=== PATIENT | male | born 1945 | race Caucasian/White ===

== ENCOUNTER 2017-06-12 09:39 | Inpatient (IN) | payer MEDICARE, OTHER ==
[2017-06-12] VITALS (39 sets, daily range): BP systolic 75–140; BP diastolic 38–98; PULSE 89–165; RESP 18–43; TEMP 98.5; Ht 180.3 cm; Wt 77.0 kg
[~2017-06-12] VITALS: Ht 180.3 cm; Wt 77.0 kg
[~2017-06-12 09:39] MED LIST: ETOMIDATE 20 MG INJ ONE; PROPOFOL 200 MG INJ ONE; SUCCINYLCHOLINE CHLORIDE 100 MG/5 ML SYG IV ONE
[2017-06-12] MEDS ORDERED: SODIUM CHLORIDE 0.9% 1L BAG IV* STA (09:48)
[2017-06-12] MEDS ORDERED: LEVOFLOXACIN 750MG/D5W (PMX) 150 ML IVPB STA (09:48)
[2017-06-12] MEDS ORDERED: VANCOMYCIN 1 GM (PMX) 250 ML IVPB STA (09:48)
[2017-06-12] MEDS ORDERED: PROPOFOL 100 ML IV STA (09:50)
[2017-06-12] MEDS ORDERED: SUCCINYLCHOLINE CHLORIDE 100 MG/5 ML SYG IV STA (09:50)
[2017-06-12] MEDS ORDERED: ETOMIDATE 20 MG INJ IV STA (09:50)
[2017-06-12 10:12] LABS: ABNORMAL IP MESSAGE 1; BASOPHILS % 0.2 % (0.0-2.0); HEMOGLOBIN 8.6 g/dl (14.0-18.0); LYMPHOCYTES # 0.9 10^3/ul (0.8-2.9); LYMPHOCYTES % 5.3 % (15.0-51.0); MEAN CORPUSCULAR HEMOGLOBIN 30.7 pg (29.0-33.0); MEAN CORPUSCULAR HGB CONC 31.9 g/dl (32.0-37.0); MEAN CORPUSCULAR VOLUME 96.4 fl (82.0-101.0); MEAN PLATELET VOLUME 12.5 fl (7.4-10.4); MONOCYTE # 2.1 10^3/ul (0.3-0.9); MONOCYTES % 11.7 % (0.0-11.0); NEUTROPHIL # 14.6 10^3/ul (1.6-7.5); NEUTROPHILS % 82.5 % (39.0-77.0); PLATELET COUNT 352 10^3/UL (140-415); POSITIVE DIFF @See below; RED CELL DISTRIBUTION WIDTH 17.8 % (11.5-14.5); WHITE BLOOD COUNT 17.7 10^3/ul (4.8-10.8)
--- NOTE | 2017-06-12 10:15 | ERA ---
ER Documentation Chief Complaint Date/Time DATE: 06/12/17 TIME: 10:02 Chief Complaint BIB RA FOR EVAL OF SOB. HPI This is a 72-year-old male presents to the emergency department from his retirement facility at [facility] by EMS after he developed a sudden onset of severe difficulty in breathing just prior to arrival. EMS indicated they had received a call from the nursing care facility that 5 minutes prior to their arrival the patient had a coughing episode with no choking or gagging and became severely hypoxic with difficulty in breathing. The patient has a known history of dementia and therefore is unable to provide any history. The patient also has a known history of COPD and septal pathway hypertension and atrial fibrillation on digoxin. The patient had presented with a history and physical from [facility] that was in February 2017 where the patient had been admitted for atrial fibrillation dementia with psychosis due to his rapidly progressing Alzheimer's disease. He has had a history of aspiration pneumonia in the past and his past surgical history includes a left inguinal hernia repair several years prior to arrival. The patient is not currently on any antibiotics and when he arrived into the emergency department the patient was warm to the touch and febrile at [facility]. ROS All systems reviewed and are negative except as per history of present illness. Medications Home Meds Reported Medications Saccharomyces Boulardii* (Florastor*) 250 Mg Cap, 250 MG PO BID, CAP 06/12/17 Tamsulosin Hcl* (Flomax*) 0.4 Mg Cap.er.24h, 0.8 MG PO HS, CAP 06/12/17 Finasteride* (Finasteride*) 5 Mg Tablet, 5 MG PO DAILY, TAB 06/12/17 Docusate Sodium* (Docusate Sodium*) 100 Mg Capsule, 100 MG PO BID, #60 CAP 06/12/17 Cranberry (Cranberry) 400 Mg Capsule, 400 MG PO DAILY, CAP 06/12/17 Atorvastatin Calcium* (Atorvastatin Calcium*) 20 Mg Tablet, 20 MG PO QHS, #30 TAB 06/12/17 Metoprolol Tartrate* (Lopressor*) 50 Mg Tab, 50 MG PO BID, #60 TAB 06/12/17 Digoxin* (Lanoxin*) 0.125 Mg Tablet, 0.125 MG PO DAILY, TAB 06/12/17 Divalproex Sodium* (Divalproex Sodium*) 500 Mg Tablet.dr, 500 MG PO DAILY, #120 TAB 06/12/17 Ascorbic Acid* (Vitamin C*) 500 Mg Capsule.sa, 500 MG PO DAILY, CAP 06/12/17 Risperidone* (Risperidone*) 1 Mg Tablet, 1 MG PO QHS, TAB 06/12/17 Multivitamins* (Theragran*) 1 Tab Tab, 1 TAB PO DAILY, TAB 06/12/17 Gabapentin* (Gabapentin*) 300 Mg Capsule, 300 MG PO TID, #90 CAP 06/12/17 Fluticasone Propionate* (Fluticasone Propionate* Nasal) 50 Mcg/[place] - 16 Gm [place].susp, 1 SPRAY NASAL DAILY, #1 BOTTLE TO EACH NOSTRIL 06/12/17 Acetaminophen* (Tylenol*) 325 Mg Tablet, 650 MG PO Q4H Y for MILD PAIN LEVEL 1-3 , TAB 06/12/17 Magnesium Hydroxide* (Milk Of Magnesia*) 400 Mg/5 Ml Oral.susp, 30 ML PO QHS Y for CONSTIPATION, ML 06/12/17 Ipratropium-Albuterol (Ipratropium-Albuterol) 0.5-3 Mg/3 Ml Ampul.neb, 3 ML INHALATION Q2H Y for CONSTIPATION, #30 VIAL 06/12/17 Ferrous Sulfate* (Ferrous Sulfate*) 325 Mg Tabec, 325 MG PO DAILY, TAB 06/12/17 Ergocalciferol (Vitamin D2) (VITAMIN D2) 2,000 Unit Tablet, 2000 UNIT PO WEEKLY , TAB 06/12/17 Discontinued Reported Medications Apixaban* (Eliquis*) 5 Mg Tablet, 5 MG PO BID, TAB 06/12/17 Allergies Allergies: Coded Allergies: Penicillins (Verified Allergy, Unknown, 06/12/17) neomycin (Verified Allergy, Unknown, 06/12/17) Physical Exam Vitals Vital Signs Date Time Temp Pulse Resp B/P Pulse Ox O2 Delivery O2 Flow Rate FiO2 06/12/17 11:06 109 18 103/45 100 Mechanical Ventilator 06/12/17 10:47 122 18 122/55 100 Mechanical Ventilator 06/12/17 09:50 33 100 06/12/17 09:45 Simple Mask 8.0 06/12/17 09:42 102.2 128 26 93/76 96 Physical Exam Constitutional:Well-developed. Cachectic and in severe respiratory distress. HEENT:Normocephalic. Atraumatic.Pupils were equal round reactive to light. Very dry mucous membranes.No tonsillar exudates. Poor oral dentition with missing teeth. Neck: No nuchal rigidity. No lymphadenopathy. No posterior cervical spine tenderness or step-offs. Respiratory: Decreased breath sounds heard bilaterally. Using accessory muscles of respiration. Tachypneic. Cardiovascular: Tachycardic with irregularly irregular rhythm.No murmurs. No rubs were appreciated.S1, S2 normal. Distal pulses are palpable 2+ bilaterally. GI: Abdomen was soft. Nontender. Non Distended. No pulsatile abdominal masses or bruits. No rebound. No guarding. Bowel sounds were present and normal. Muscle skeletal: Crease muscle tone of the bilateral lower extremities. Skin: Diaphoretic. No petechia, no purpura. No lesions on the palms or the soles of the feet. No maculopapular rash. NEURO: Aphasic, not following verbal command. Gait not able to be observed due to patient's severe respiratory distress. Facial droop. Patient was moving the upper and lower extremities as he would withdraw to pain but again did not follow verbal command Result Diagram: 06/12/17 0948 06/12/17 0935 Results 24 hrs Laboratory Tests Test 06/12/17 09:35 06/12/17 09:48 Prothrombin Time 16.0Sec Prothrombin Time Ratio 1.3 INR International Normalized Ratio 1.27 Activated Partial Thromboplast Time 34.4Sec Sodium Level 142mmol/L Potassium Level 4.6mmol/L Chloride Level 111mmol/L Carbon Dioxide Level 22mmol/L Anion Gap 14 Blood Urea Nitrogen 53mg/dl Creatinine 2.35mg/dl Glucose Level 140mg/dl Lactic Acid Level 2.5mmol/L Calcium Level 8.9mg/dl Total Bilirubin 0.8mg/dl Direct Bilirubin 0.00mg/dl Indirect Bilirubin 0.8mg/dl Aspartate Amino Transf (AST/SGOT) 18IU/L Alanine Aminotransferase (ALT/SGPT) 16IU/L Alkaline Phosphatase 66IU/L Troponin I 0.026ng/ml B-Type Natriuretic Peptide 3240PG/ML Total Protein 6.9g/dl Albumin 3.4g/dl Globulin 3.50g/dl Albumin/Globulin Ratio 0.97 Amylase Level 54U/L Lipase 12U/L White Blood Count 17.710^3/ul Red Blood Count 2.8010^6/ul Hemoglobin 8.6g/dl Hematocrit 27.0% Mean Corpuscular Volume 96.4fl Mean Corpuscular Hemoglobin 30.7pg Mean Corpuscular Hemoglobin Concent 31.9g/dl Red Cell Distribution Width 17.8% Platelet Count 74146^3/UL Mean Platelet Volume 12.5fl Neutrophils % 82.5% Lymphocytes % 5.3% Monocytes % 11.7% Eosinophils % 0.0% Basophils % 0.2% Nucleated Red Blood Cells % 0.0/100WBC Neutrophils # 14.610^3/ul Lymphocytes # 0.910^3/ul Monocytes # 2.110^3/ul Eosinophils # 0.010^3/ul Basophils # 0.010^3/ul Nucleated Red Blood Cells # 0.010^3/ul Blood Gas Specimen Source Blood arterial Arterial Blood Date Drawn 06/12/2017 10:48:11 AM Arterial Blood pH (Temp corrected) 7.417 Arterial Blood pCO2 (Temp correct) 30.9mmhg Arterial Blood pO2 (Temp corrected) 332.5mmHG Arterial Blood HCO3 19.5mmol/L Arterial Blood Base Excess -4.4mmol/L Arterial Blood Oxygen Saturation 99.6mmHG Vishal Test ACCEPTAB Arterial Blood Gas Puncture Site Right Radial Arterial Blood Carboxyhemoglobin 0.3% Arterial Blood Methemoglobin 0.4% Blood Gas A-a O2 Differential 349.6mmHg Oxyhemoglobin Percent 98.9% Total Hemoglobin 8.2g/dl Blood Gas Temperature 37.0C Blood Gas Respiration Rate 18.0 Blood Gas Actual Respiration Rate 25 Blood Gas Modality VENT - AC FiO2 100.0% Blood Gas Tidal Volume 550.0mL Blood Gas Notified Whom MDA Blood Gas Notified Time 06/12/2017 10:52:50 AM Current Medications Medications (Trade) Dose Ordered Sig/Pedro Route PRN Reason Start Time Stop Time Status Last Admin Dose Admin Sodium Chloride 2330 ml 2,330 ml BOLUS OVER 2 HOURS STAT IV* 06/12/17 09:48 06/12/17 09:50 DC 06/12/17 10:28 Vancomycin HCl 250 ml @ 125 mls/hr ONCE STAT IVPB 06/12/17 09:48 06/12/17 11:47 DC Levofloxacin/ Dextrose (Levaquin 750 Mg/ D5W 150 ml (Pmx)) 150 ml @ 100 mls/hr ONCE STAT IVPB 06/12/17 09:48 06/12/17 11:17 DC 06/12/17 10:39 Succinylcholine Chloride (Anectine Syringe) 100 mg ONCE STAT IV 06/12/17 09:50 06/12/17 09:51 DC Etomidate 10 mg 10 mg ONCE STAT IV 06/12/17 09:50 06/12/17 09:51 DC Propofol (Diprivan) 100 ml @ 2.25 mls/hr ONCE STAT IV 06/12/17 09:50 06/14/17 06:16 06/12/17 10:27 Acetaminophen (Tylenol Supp) 650 mg ONCE ONCE CA 06/12/17 11:30 06/12/17 11:31 DC Procedures/MDM The patient presented to the emergency department with dyspnea. My differential diagnosis included but was not limited to upper airway obstruction, CHF, pulmonary embolism, cardiac ischemia, pneumonia, pneumothorax, anemia, drug overdose, pulmonary edema, COPD or asthma. The patient was immediately placed on a manager cardiac continuous pulse oximetry and IV access was established by nursing staff. The patient was in severe respiratory distress unable to maintain his airway thought to be secondary to possible aspiration pneumonia or severe COPD exacerbation and therefore at this time RSI was performed by myself. The patient received etomidate and succinylcholine and a 7.50 endotracheal tube was seen in past going through the cords by myself. The patient had a significant amount of purulent sputum present within the airway again concerning for aspiration pneumonia. The tube was confirmed to be in good placement with equal and symmetrical breath sounds heard bilaterally, condensation seen within the tube in good capnometry 6. The patient initially arrived the patient was hypoxic with a saturation of 80% and after intubation the patient's oxygen saturation improved to 100%. 12 Lead EKG tracing ordered and reviewed by myself showed: Sinus tachycardia 110 bpm and no arrhythmia. CA interval normal. QRS duration normal. No ST segment elevation No ST segment depression. No changes consistent with acute ischemia. Patient's infectious symptoms have not stabilized and the patient is at risk of rapid decompensation. The patient will be admitted for careful hydration, antibiotic therapy, and infectious source control. Severe Sepsis Assessment: Infectious Source: Aspiration pneumonia End organ damage indicated by: Lactate > 2.0 mmol/L Hypotension( SBP < 90 or >40 mmHG drop or MAP < 65) Acute Resp Failure (sat < 92% w/o oxygen) Severe Sepsis Managment: Blood Cultures X 2 before broad spectrum antibiotics initiated within 3 hours of recognition. 30 ml/kg NS bolus Completed Initial Lactate: 2.4 Repeat Lactate pending I obtained one view chest radiograph reviewed by myself and the radiologist which indicated the followin. Endotracheal tube in satisfactory position. 2. Left perihilar and mid lung zone pneumonia. 3. Atherosclerosis I considered further perfusion assessment with CVP measurement, SCVO2, bedside ultrasound volume assessment, passive leg raise, trial of further fluid bolus. And preceded with IV fluids. She had an elevated BUN and creatinine of 53 and 2.35 which is likely prerenal secondary to severe dehydration. The patient did receive a 30 cc/kg bolus of normal saline. Will be admitted in serious condition to the hospitalist Dr. Tse with anticipated stay of greater than 2 midnights Critical Care: Time: 65 minutes Treatments/Evaluations: Close monitoring and treatment of unstable vital signs, cardiorespiratory, and neurologic status, while maintaining tight balance of fluid, respiratory, and cardiac interventions. Time does not include performing any of the above billable procedures. Departure Diagnosis: Primary Impression: Aspiration pneumonia Qualified Code: J69.0 - Aspiration pneumonia due to regurgitated food, unspecified laterality, unspecified part of lung Additional Impressions: Sepsis Qualified Code: A41.9 - Sepsis, due to unspecified organism COPD (chronic obstructive pulmonary disease) Qualified Code: J44.1 - Chronic obstructive pulmonary disease with acute exacerbation Condition: Serious AURORA GONZALEZ Jun 12, 2017 10:13
[2017-06-12 10:26] LABS: INR 1.27; PT RATIO 1.3
[2017-06-12 10:27] LABS: PARTIAL THROMBOPLASTIN TIME 34.4 Sec (25.0-35.0)
[2017-06-12 10:32] LABS: ALBUMIN 3.4 g/dl (3.3-4.9); ALBUMIN/GLOBULIN RATIO 0.97; BILIRUBIN,INDIRECT 0.8 mg/dl (0-1.1); BILIRUBIN,TOTAL 0.8 mg/dl (0.2-1.3); CALCIUM 8.9 mg/dl (8.4-10.2); CREATININE 2.35 mg/dl (0.61-1.24); POTASSIUM 4.6 mmol/L (3.5-5.1); TOTAL PROTEIN 6.9 g/dl (6.1-8.1)
[2017-06-12 10:43] LABS: TROPONIN-I 0.026 ng/ml (0.00-0.12)
[2017-06-12 10:53] LABS: AADO2 Arterial 349.6 mmHg (7.0-24.0); Allen Test ACCEPTAB; Arterial Base Excess -4.4 mmol/L (-3.0-3); Arterial COHb 0.3 % (0.0-3.0); Arterial Fraction of Oxyhgb 98.9 % (93.0-99.0); Arterial HCO3 19.5 mmol/L (22.0-26.0); Arterial MetHb 0.4 % (0.0-1.5); Arterial Total Hemglobin 8.2 g/dl (12.0-18.0); MODE VENT - AC
[2017-06-12] MEDS ORDERED: FER325 PO (11:08)
[2017-06-12] MEDS ORDERED: ERGO2000 PO (11:08)
[2017-06-12] MEDS ORDERED: IPRA3AMP INHALATION (11:11)
[2017-06-12] MEDS ORDERED: MAGN400O4 PO (11:12)
[2017-06-12] MEDS ORDERED: ACET325T33 PO (11:12)
[2017-06-12] MEDS ORDERED: MULTI PO (11:13)
[2017-06-12] MEDS ORDERED: GABA300C16 PO (11:13)
[2017-06-12] MEDS ORDERED: FLUT16SP17 NASAL (11:13)
[2017-06-12] MEDS ORDERED: ASCO500C7 PO (11:14)
[2017-06-12] MEDS ORDERED: RISP1TAB3 PO (11:14)
[2017-06-12] MEDS ORDERED: METO-429 PO (11:15)
[2017-06-12] MEDS ORDERED: DIGO125T6 PO (11:15)
[2017-06-12] MEDS ORDERED: DIVA-16 PO (11:15)
[2017-06-12] MEDS ORDERED: ATOR20TA38 PO (11:16)
[2017-06-12] MEDS ORDERED: APIX5TAB PO (11:16)
[2017-06-12] MEDS ORDERED: CRAN400C PO (11:17)
[2017-06-12] MEDS ORDERED: DOCU-159 PO (11:17)
[2017-06-12] MEDS ORDERED: FINA5TAB4 PO (11:17)
[2017-06-12] MEDS ORDERED: SACC250C PO (11:18)
[2017-06-12] MEDS ORDERED: TAMS-14 PO (11:18)
[2017-06-12] MEDS ORDERED: ACETAMINOPHEN 650 MG SUPP PR ONE (11:30)
--- NOTE | 2017-06-12 11:33 | RADRPT ---
PROCEDURE: XR Chest. CLINICAL INDICATION: Check endotracheal tube position. TECHNIQUE: Single frontal view. COMPARISON: None. FINDINGS: The endotracheal tube has been inserted with the tip 4.8 cm above the katherine. There is extensive pat elzbieta air space disease in the left perihilar region and left mid lung zone consistent with pneumonia. The heart size is normal. There is calcification in the aorta consistent with atherosclerosis. There is no pleural effusion. There is no pneumothorax. IMPRESSION: 1. Endotracheal tube in satisfactory position. 2. Left perihilar and mid lung zone pneumonia. 3. Atherosclerosis RPTAT: QQ .Karl Rebollar MD, MD Date Time Electronically viewed and signed by .Karl Rebollar MD, MD on 06/12/2017 11:33 .R/
[2017-06-12] MEDS ORDERED: MAGNESIUM HYDROXIDE 30ML CUP PO PRN ×2 (12:30)
[2017-06-12] MEDS ORDERED: BISACODYL 10 MG SUPP PR PRN (12:30)
[2017-06-12] MEDS ORDERED: ACETAMINOPHEN 650 MG SUPP PR PRN (12:30)
[2017-06-12] MEDS ORDERED: DOCUSATE SODIUM 100 MG CAP PO PRN (12:30)
[2017-06-12] MEDS ORDERED: ACETAMINOPHEN 325 MG TAB PO PRN ×2 (12:30)
[2017-06-12] MEDS ORDERED: ONDANSETRON 4 MG INJ IV PRN (12:30)
[2017-06-12] MEDS ORDERED: VANCOMYCIN IV PER PHARMACY XX SCH (12:30)
[2017-06-12] MEDS ORDERED: NACL 0.9% 3 ML SYG IV SCH (12:30)
[2017-06-12] MEDS ORDERED: ALBUTEROL/IPRATROPIUM (NEB) 3 ML AMP NEB PRN (12:30)
[2017-06-12] MEDS ORDERED: morphine 2 MG INJ IV PRN (12:30)
[2017-06-12] MEDS ORDERED: HYDROCODONE/APAP (5/325) TAB PO PRN ×2 (12:30)
[2017-06-12] MEDS ORDERED: PROPOFOL 100 ML IV PRN (13:00)
[2017-06-12] MEDS ORDERED: PROPOFOL 100 ML IV SCH (14:30)
--- NOTE | 2017-06-12 14:45 | CONS ---
DATE OF ADMISSION: 06/12/2017 DATE OF CONSULTATION: 06/12/2017 REASON FOR CONSULTATION: Respiratory failure. Thank you, Dr. Tse, for this consultation. HISTORY OF PRESENT ILLNESS: This is a 72-year-old gentleman with a history of dementia, transferred from longterm facility for increasing shortness of breath, orthopnea, PND, found on admission to have marked hypoxemia requiring emergent intubation and mechanical ventilation. Per chart, patient appears to have had recent admission at [facility]. PAST MEDICAL HISTORY: Complicated by atrial fibrillation, psychosis, Alzheimer's dementia, COPD. MEDICATION: Per chart. ALLERGIES: PENICILLIN. SOCIAL HISTORY: Ex smoker. No alcohol. No history of drug use. FAMILY HISTORY: Noncontributory. REVIEW OF SYSTEMS: A 12-point review of systems, unable to perform. PHYSICAL EXAMINATION: GENERAL: On examination, elderly-appearing gentleman, orally intubated, grimaces to painful stimuli. VITAL SIGNS: Temperature 98, pulse is 112, blood pressure 127/48, O2 saturation 96 percent on 100% FiO2. HEENT: Orally intubated. Dry mucous membranes. Pupils equal and react to light. CARDIAC: S1, S2. No added sounds or murmurs. CHEST: Diminished air entry bilaterally with few rales. ABDOMEN: Soft, nontender. No guarding or rebound. EXTREMITIES: No cyanosis, clubbing, or edema. NEUROLOGICALLY: No focal deficits. LABORATORY AND DIAGNOSTIC IMAGING: White count 17.7, hemoglobin 8.6, platelets of 352, BUN 53, creatinine 2.35. Lactic acid initially 2.5, now 1.9. ABG PAO2 was 332, chest x-ray was reviewed shows left perihilar infiltrate. IMPRESSION: 1. Possible healthcare associated pneumonia. 2. Possible aspiration component. 3. Hypoxemic respiratory failure. 4. History of dementia. 5. History of atrial fibrillation. PLAN: 1. Continue mechanical ventilation. 2. Continue broad-spectrum antibiotic coverage. 3. Continue aspiration precautions. 4. Deep vein thrombosis and gastrointestinal prophylaxis. 5. Discussed code status with family again. Dictated By: Vick Trent MD /walker/ /Document#: [id number]
[2017-06-12] MEDS: GABAPENTIN 300 MG CAP PO SCH ×2 (15:04→21:42)
--- NOTE | 2017-06-12 15:24 | CONS ---
Date/Time of Note Date/Time of Note DATE: 06/12/17 TIME: 15:17 Assessment/Plan Assessment/Plan Additional Assessment/Plan 72 yo male with 1) Severe Sepsis 2) Pna, Possible aspiration 3) Resp Failure, vent 4) DEEP in the setting of above, ?Obstruction 5) Likely BPH Agree with Urology consultation F/u Renal US Cont IVFs Keep MAPs>65mmHg AVoid Nephrotoxic Rx, avoid hypotension. Renal dose to eGFR<30 F/u UA, Urine Cx, Na and Cr No acute indication for HD at this time Will cont to closely follow along with you. Consultation Date/Type/Reason Admit Date/Time Jun 12, 2017 at 11:47 Date of Consultation: Jun 12, 2017 Type of Consultation: Renal Reason for Consultation DEEP Referring Provider: LETI LOPEZ Hx of Present Illness 72-year-old male presented to the emergency department from shelter facility at [facility] BIB EMS after developing sudden onset of severe shortness of breath ultimately requiring intubation and ICU level of care. Nephrology consulted for DEEP, Unknown baseline. Unable to insert adkins, possible enlarged prostate, urology consulted. Pt remains intubated in ICU. Anuric. unable to obtain due to condition Subjective hx not possible: pt critical status Constitutional: requiring O2 Past Medical History Saccharomyces Boulardii* (Florastor*) 250 Mg Cap, 250 MG PO BID, CAP Tamsulosin Hcl* (Flomax*) 0.4 Mg Cap.er.24h, 0.8 MG PO HS, CAP Finasteride* (Finasteride*) 5 Mg Tablet, 5 MG PO DAILY, TAB Docusate Sodium* (Docusate Sodium*) 100 Mg Capsule, 100 MG PO BID, #60 CAP Cranberry (Cranberry) 400 Mg Capsule, 400 MG PO DAILY, CAP Atorvastatin Calcium* (Atorvastatin Calcium*) 20 Mg Tablet, 20 MG PO QHS, #30 TAB Metoprolol Tartrate* (Lopressor*) 50 Mg Tab, 50 MG PO BID, #60 TAB Digoxin* (Lanoxin*) 0.125 Mg Tablet, 0.125 MG PO DAILY, TAB Divalproex Sodium* (Divalproex Sodium*) 500 Mg Tablet.dr, 500 MG PO DAILY, #120 TAB Ascorbic Acid* (Vitamin C*) 500 Mg Capsule.sa, 500 MG PO DAILY, CAP Risperidone* (Risperidone*) 1 Mg Tablet, 1 MG PO QHS, TAB Multivitamins* (Theragran*) 1 Tab Tab, 1 TAB PO DAILY, TAB Gabapentin* (Gabapentin*) 300 Mg Capsule, 300 MG PO TID, #90 CAP Fluticasone Propionate* (Fluticasone Propionate* Nasal) 50 Mcg/[place] - 16 Gm [place].susp, 1 SPRAY NASAL DAILY, #1 BOTTLE TO EACH NOSTRIL Acetaminophen* (Tylenol*) 325 Mg Tablet, 650 MG PO Q4H Y for MILD PAIN LEVEL 1-3 , TAB Magnesium Hydroxide* (Milk Of Magnesia*) 400 Mg/5 Ml Oral.susp, 30 ML PO QHS Y for CONSTIPATION, ML Ipratropium-Albuterol (Ipratropium-Albuterol) 0.5-3 Mg/3 Ml Ampul.neb, 3 ML INHALATION Q2H Y for CONSTIPATION, #30 VIAL Ferrous Sulfate* (Ferrous Sulfate*) 325 Mg Tabec, 325 MG PO DAILY, TAB Ergocalciferol (Vitamin D2) (VITAMIN D2) 2,000 Unit Tablet, 2000 UNIT PO WEEKLY , TAB Medical History: other (alzheimers dementia, afib) Past Surgical History Past Surgical Hx: other (hernia repair) Family History Significant Family History: other Social History Alcohol Use: none Smoking Status: Never smoker Drug Use: none Exam/Review of Systems Vital Signs Vitals Vital Signs Date Time Temp Pulse Resp B/P Pulse Ox O2 Delivery O2 Flow Rate FiO2 06/12/17 14:45 95 19 100/49 100 06/12/17 14:00 97.5 06/12/17 13:00 50 06/12/17 12:33 Room Air 06/12/17 09:45 8.0 Exam Head: atraumatic ENMT: intubated, mucosa pink and moist Neck: No jvd Respiratory: crackles/rales, No diminished breath sounds Cardiovascular: regular rate and rhythm, No edema Gastrointestinal: distended, soft Musculoskeletal: nl extremities to inspection Extremities: No edema Neurological: unresponsive Skin: nl turgor, rash or lesions, No diaphoresis Results Result Diagram: 06/12/17 0948 06/12/17 0935 Results 24 hrs Laboratory Tests Test 06/12/17 09:35 06/12/17 09:48 06/12/17 10:35 06/12/17 12:37 Prothrombin Time 16.0 H Prothrombin Time Ratio 1.3 INR International Normalized Ratio 1.27 Activated Partial Thromboplast Time 34.4 Sodium Level 142 Potassium Level 4.6 Chloride Level 111 H Carbon Dioxide Level 22 Anion Gap 14 Blood Urea Nitrogen 53 H Creatinine 2.35 H Glucose Level 140 Lactic Acid Level 2.5 *H 1.9 Calcium Level 8.9 Total Bilirubin 0.8 Direct Bilirubin 0.00 Indirect Bilirubin 0.8 Aspartate Amino Transf (AST/SGOT) 18 Alanine Aminotransferase (ALT/SGPT) 16 Alkaline Phosphatase 66 Troponin I 0.026 B-Type Natriuretic Peptide 3240 H Total Protein 6.9 Albumin 3.4 Globulin 3.50 H Albumin/Globulin Ratio 0.97 Amylase Level 54 Lipase 12 L White Blood Count 17.7 H Red Blood Count 2.80 L Hemoglobin 8.6 L Hematocrit 27.0 L Mean Corpuscular Volume 96.4 Mean Corpuscular Hemoglobin 30.7 Mean Corpuscular Hemoglobin Concent 31.9 L Red Cell Distribution Width 17.8 H Platelet Count 352 Mean Platelet Volume 12.5 H Neutrophils % 82.5 H Lymphocytes % 5.3 L Monocytes % 11.7 H Eosinophils % 0.0 Basophils % 0.2 Nucleated Red Blood Cells % 0.0 Neutrophils # 14.6 H Lymphocytes # 0.9 Monocytes # 2.1 H Eosinophils # 0.0 Basophils # 0.0 Nucleated Red Blood Cells # 0.0 Blood Gas Specimen Source Blood arterial Arterial Blood Date Drawn 06/12/2017 10:48:11 AM Arterial Blood pH (Temp corrected) 7.417 Arterial Blood pCO2 (Temp correct) 30.9 L Arterial Blood pO2 (Temp corrected) 332.5 H Arterial Blood HCO3 19.5 L Arterial Blood Base Excess -4.4 L Arterial Blood Oxygen Saturation 99.6 Vishal Test ACCEPTAB Arterial Blood Gas Puncture Site Right Radial Arterial Blood Carboxyhemoglobin 0.3 Arterial Blood Methemoglobin 0.4 Blood Gas A-a O2 Differential 349.6 H Oxyhemoglobin Percent 98.9 Total Hemoglobin 8.2 L Blood Gas Temperature 37.0 Blood Gas Respiration Rate 18.0 Blood Gas Actual Respiration Rate 25 Blood Gas Modality VENT - AC FiO2 100.0 Blood Gas Tidal Volume 550.0 Blood Gas Notified Whom MDA Blood Gas Notified Time 06/12/2017 10:52:50 AM Digoxin Level 0.7 L Imaging Free Text/Dictation PROCEDURE: XR Chest. CLINICAL INDICATION: Check endotracheal tube position. TECHNIQUE: Single frontal view. COMPARISON: None. FINDINGS: The endotracheal tube has been inserted with the tip 4.8 cm above the katherine. There is extensive patchy air space disease in the left perihilar region and left mid lung zone consistent with pneumonia. The heart size is normal. There is calcification in the aorta consistent with atherosclerosis. There is no pleural effusion. There is no pneumothorax. IMPRESSION: 1. Endotracheal tube in satisfactory position. 2. Left perihilar and mid lung zone pneumonia. 3. Atherosclerosis RPTAT: QQ .Karl Rebollar MD, MD Date Time Electronically viewed and signed by .Karl Rebollar MD, MD on 06/12/2017 11:33 Medications Medications Current Medications Ascorbic Acid (Vitamin C) 500 mg DAILY PO ; Start 06/13/17 at 09:00 Atorvastatin Calcium (Lipitor) 20 mg QHS PO ; Start 06/12/17 at 21:00 Digoxin (Digoxin) 0.125 mg DAILY@13 PO ; Start 06/13/17 at 13:00 Divalproex Sodium (Depakote) 500 mg DAILY PO ; Start 06/13/17 at 09:00 Ferrous Sulfate (Ferrous Sulfate (Ec)) 325 mg DAILY PO ; Start 06/13/17 at 09:00 Finasteride (Proscar) 5 mg DAILY PO ; Start 06/13/17 at 09:00 Gabapentin (Neurontin) 300 mg TID PO Last administered on 06/12/17t 15:04; Admin Dose 300 MG; Start 06/12/17 at 13:00 Albuterol/ Ipratropium (Duoneb) 3 ml Q2H PRN NEB CONSTIPATION; Start 06/12/17 at 12:30 Metoprolol Tartrate (Lopressor) 50 mg BID PO ; Start 06/12/17 at 21:00 Multivitamins Therapeutic (Theragran) 1 tab DAILY PO ; Start 06/13/17 at 09:00 Saccharomyces Boulardii (Florastor) 250 mg BID PO ; Start 06/12/17 at 21:00 Tamsulosin HCl (Flomax) 0.8 mg HS PO ; Start 06/12/17 at 21:00 Ondansetron HCl (Zofran Inj) 4 mg Q6H PRN IV NAUSEA AND/OR VOMITING; Start at 12:30 Acetaminophen (Tylenol Tab) 650 mg Q6H PRN PO PAIN LEVEL 1-3 OR FEVER; Start at 12:30 Acetaminophen (Tylenol Supp) 650 mg Q6H PRN AR PAIN LEVEL 1-3 OR FEVER; Start 06/12/17 at 12:30 Acetaminophen/ Hydrocodone Bitart ([place] (5/325)) 1 tab Q6H PRN PO MODERATE PAIN LEVEL 4-6; Start 06/12/17 at 12:30 Acetaminophen/ Hydrocodone Bitart ([place] (5/325)) 2 tab Q6H PRN PO SEVERE PAIN LEVEL 7-10; Start 06/12/17 at 12:30 Morphine Sulfate (morphine) 2 mg Q4H PRN IV SEVERE PAIN LEVEL 7-10; Start 06/12 at 12:30 Docusate Sodium (Colace) 100 mg Q12H PRN PO CONSTIPATION; Start 06/12/17 at 12: 30 Magnesium Hydroxide (Milk Of Mag) 30 ml DAILY PRN PO CONSTIPATION; Start at 12:30 Bisacodyl (Dulcolax Supp) 10 mg DAILY PRN AR CONSTIPATION; Start 06/12/17 at 12 :30 Pantoprazole 40 mg 40 mg DAILY@06 IV ; Start 06/13/17 at 06:00 Levofloxacin/ Dextrose 150 ml @ 150 mls/hr Q48H IV ; Start 06/14/17 at 09:00 Propofol (Diprivan) 100 ml @ 0 mls/hr TITRATE PRN IV SEDATION; Start 06/12/17 at 13:00 Morphine Sulfate (morphine) 2 mg Q2 PRN IV PAIN LEVEL 4-7; Start 06/12/17 at 14 :30 ELVA VIDAL MD Jun 12, 2017 15:24
--- NOTE | 2017-06-12 16:24 | HP ---
Date/Time of Note Date/Time of Note DATE: 06/12/17 TIME: 16:18 Assessment/Plan VTE Prophylaxis VTE Prophylaxis Intervention: SCD's Lines/Catheters IV Catheter Type (from [facility]): Peripheral IV Urinary Cath still in place: No Assessment/Plan Chief Complaint/Hosp Course Impression and plan 1. Sepsis likely secondary to aspiration pneumonia. Patient does have extensive history of Alzheimer's as well as dysphagia. Will place on antibiotics. Application Support Intern following acute respiratory failure secondary to aspiration pneumonia. Continue with pulmonal pulmonary recommendations. 2. Respiratory failure secondary to #1. Patient intubated on mechanical ventilation at this time. Application Support Intern following. Monitor for ability for vent liberation. 3. Alzheimer's disease. Continue with aspiration precautions. Also continue with skin precautions as well. 4. History of atrial fibrillation. Will resume patient's digoxin. Continue monitoring on telemetry 5. History of COPD. Will provide with bronchodilators as needed. Application Support Intern to follow. 6. BPH. Patient with over 200 mL of fluid seen on bladder scan. We will get urologist to follow. Admission process time greater than 40 minutes Discussed plan of care with Dr. Quinteros Problems: HPI/ROS Admit Date/Time Admit Date/Time Jun 12, 2017 at 11:47 Hx of Present Illness There is a 72-year-old male with history of Alzheimer's, severe dementia, COPD, paroxysmal atrial ablation, was brought to [facility] from outside facility secondary to increased left increased lethargy and altered mentation as well as shortness of breath. Patient was subsequently brought to [facility] for further evaluation. Upon further examination had a chest x-ray did show him to have left perihilar and midlung zone pneumonia. He did have initial leukocytosis with white count 17.7 and was noted to be anemic as well. Chemistry does show him to have some acute renal insufficiency with baseline unknown. BUN was seen at 53 and creatinine was at 2.35. lactic acid was seen at 2.5. Patient did have septic picture. considering patient's comorbidities patient is likely with aspiration. We will evaluate him for the aformentiond issues. ROS Unable to fully obtain due to patient's mentation PMH/Family/Social Past Medical History Medical/surgical history 1. Rapidly progressive Alzheimer's disease. 2. Dysphagia 3. Paroxysmal atrial fibrillation 4. COPD Medical History: other Past Surgical History Past Surgical Hx: other Social History Alcohol Use: none Smoking Status: Never smoker Drug Use: none Exam/Review of Systems Vital Signs Vitals Vital Signs Date Time Temp Pulse Resp B/P Pulse Ox O2 Delivery O2 Flow Rate FiO2 06/12/17 15:00 108 25 100 50 06/12/17 14:45 100/49 06/12/17 14:00 97.5 06/12/17 12:33 Room Air 06/12/17 09:45 8.0 Exam Constitutional: other (Intubate and sedated) Head: normocephalic Respiratory: other (Minimally congested bilaterally) Cardiovascular: other (Tachycardic) Gastrointestinal: other (Minimally protuberant on lower abdomen lower abdominal quadrants slightly firm) Skin: other (Erythema noted on scrotal area.) Labs Result Diagram: 06/12/1748 06/12/17 0935 Medications Medications Current Medications Ascorbic Acid (Vitamin C) 500 mg DAILY PO ; Start 06/13/17 at 09:00 Atorvastatin Calcium (Lipitor) 20 mg QHS PO ; Start 06/12/17 at 21:00 Digoxin (Digoxin) 0.125 mg DAILY@13 PO ; Start 06/13/17 at 13:00 Divalproex Sodium (Depakote) 500 mg DAILY PO ; Start 06/13/17 at 09:00 Ferrous Sulfate (Ferrous Sulfate (Ec)) 325 mg DAILY PO ; Start 06/13/17 at 09:00 Finasteride (Proscar) 5 mg DAILY PO ; Start 06/13/17 at 09:00 Gabapentin (Neurontin) 300 mg TID PO Last administered on 06/12/17t 15:04; Admin Dose 300 MG; Start 06/12/17 at 13:00 Albuterol/ Ipratropium (Duoneb) 3 ml Q2H PRN NEB CONSTIPATION; Start 06/12/17 at 12:30 Metoprolol Tartrate (Lopressor) 50 mg BID PO ; Start 06/12/17 at 21:00 Multivitamins Therapeutic (Theragran) 1 tab DAILY PO ; Start 06/13/17 at 09:00 Saccharomyces Boulardii (Florastor) 250 mg BID PO ; Start 06/12/17 at 21:00 Tamsulosin HCl (Flomax) 0.8 mg HS PO ; Start 06/12/17 at 21:00 Ondansetron HCl (Zofran Inj) 4 mg Q6H PRN IV NAUSEA AND/OR VOMITING; Start at 12:30 Acetaminophen (Tylenol Tab) 650 mg Q6H PRN PO PAIN LEVEL 1-3 OR FEVER; Start at 12:30 Acetaminophen (Tylenol Supp) 650 mg Q6H PRN [place] PAIN LEVEL 1-3 OR FEVER; Start 06/12/17 at 12:30 Acetaminophen/ Hydrocodone Bitart ([place] (5/325)) 1 tab Q6H PRN PO MODERATE PAIN LEVEL 4-6; Start 06/12/17 at 12:30 Acetaminophen/ Hydrocodone Bitart ([place] (5/325)) 2 tab Q6H PRN PO SEVERE PAIN LEVEL 7-10; Start 06/12/17 at 12:30 Morphine Sulfate (morphine) 2 mg Q4H PRN IV SEVERE PAIN LEVEL 7-10; Start 06/12 at 12:30 Docusate Sodium (Colace) 100 mg Q12H PRN PO CONSTIPATION; Start 06/12/17 at 12: 30 Magnesium Hydroxide (Milk Of Mag) 30 ml DAILY PRN PO CONSTIPATION; Start at 12:30 Bisacodyl (Dulcolax Supp) 10 mg DAILY PRN [place] CONSTIPATION; Start 06/12/17 at 12 :30 Pantoprazole 40 mg 40 mg DAILY@06 IV ; Start 06/13/17 at 06:00 Levofloxacin/ Dextrose 150 ml @ 150 mls/hr Q48H IV ; Start 06/14/17 at 09:00 Propofol (Diprivan) 100 ml @ 0 mls/hr TITRATE PRN IV SEDATION; Start 06/12/17 at 13:00 Morphine Sulfate (morphine) 2 mg Q2 PRN IV PAIN LEVEL 4-7; Start 06/12/17 at 14 :30 LETI LOPEZ Jun 12, 2017 16:24
--- NOTE | 2017-06-12 16:45 | RADRPT ---
PROCEDURE: US Renal CLINICAL INDICATION: Acute renal insufficiency. TECHNIQUE: Multiple sonographic images of the kidneys and bladder were obtained. Evaluation of th e kidneys and bladder was performed as well with coronel scale and color and Doppler evaluation using a curved array transducer. The images were reviewed on a high-resolution PACS workstation. COMPARISON: No prior studies are available for comparison. FINDINGS: The right kidney measures 12.7 x 4.8 x 4.8 cm. The left kidney measures 13.0 x 7.0 x 5.4 cm. There is normal echogenicity within the parenchyma of the kidneys bilaterally. There is a 0.8 cm right renal cyst. There are multiple left renal cyst. The largest measures 3.1 x 2 .7 cm.. No perinephric fluid collection is seen. Urinary bladder appears thick-walled with some debris present in the dependent portion. IMPRESSION: 1. Bilateral renal cysts. 2. Thick-walled urinary bladder containing debris. This may be secondary to cystitis. RPTAT: AACC Physician Savana Date Time Electronically viewed and signed by Physician Savana on 06/12/2017 16:44 /
[2017-06-12] MEDS: PROPOFOL 100 ML IV SCH (16:56)
--- NOTE | 2017-06-12 19:52 | CONS ---
DATE OF ADMISSION: 06/12/2017 DATE OF CONSULTATION: 06/12/2017 REASON FOR CONSULTATION: Antibiotic management. HISTORY OF PRESENT ILLNESS: Rich Huber is a 72-year-old male with numerous problems who comes in with sepsis secondary to aspiration pneumonia. His past problems include: 1. Alzheimer's dementia. 2. COPD. 3. History of paroxysmal atrial fibrillation. 4. Dysphagia. This patient is brought in secondary to increased lethargy and altered mentation as well as shortness of breath. He was brought to [facility] for further evaluation. LABORATORY: Chest x-ray showed left perihilar and mid lung zone pneumonia. He did have initial leukocytosis with a white count of 17.7, his H and H was 8.6 and 27, platelet count 362,000. BUN 53 and creatinine 2.35 and random glucose of 142. Chest x-ray, as noted, showed an ET tube in place, left perihilar and mid lung zone pneumonia, atherosclerosis, extensive patchy airspace disease in left perihilar region and left mid lung zones. PAST MEDICAL HISTORY: As outlined. PAST SURGICAL HISTORY: As outlined. FAMILY HISTORY: Noncontributory. SOCIAL HISTORY: He does not smoke, drink, or abuse drugs. ALLERGIES: NONE TO PENICILLIN, SULFA, OR FOODS. MEDICATION: Per chart. REVIEW OF SYSTEMS: As per HPI. PHYSICAL EXAMINATION: GENERAL APPEARANCE: The patient is a elderly-appearing male who is sedated and intubated in no acute distress. VITAL SIGNS: Stable. He is afebrile. SKIN: Without generalized rash. HEENT: He has an ET tube. NECK: Supple. Lymph nodes nonpalpable. CHEST: Decreased breath sounds at the bases. HEART: Tachycardic. ABDOMEN: Soft, nontender, without organosplenomegaly or masses. EXTREMITIES: He has without cyanosis, clubbing, or edema. GENITAL: He has erythema in the scrotal area. NEUROLOGIC: Unable to assess. IMPRESSION AND PLAN: The patient comes in with sepsis secondary to aspiration pneumonia. The patient was started on Levaquin and vancomycin. Blood cultures were ordered. MRI safety screen, respiratory cultures, and urine cultures were done. I concur with the current therapy. I will dictate my findings to the hospitalists and also to Dr. Trent and Dr. Barnes. Dictated By: Blair Huerta MD JD/walker/chetan /Document#: [id number]
[2017-06-12] MEDS ORDERED: METOPROLOL 5 MG INJ IV ONE (20:00)
[2017-06-12] MEDS: morphine 2 MG INJ IV PRN (20:09)
--- NOTE | 2017-06-12 20:23 | CONS ---
DATE OF ADMISSION: 06/12/2017 DATE OF CONSULTATION: 06/12/2017 REFERRING PHYSICIAN: Deny Tse MD HISTORY OF PRESENT ILLNESS: The patient is a 72-year-old male, who is a resident of [facility], which is a [facility]. The patient does have a history of Alzheimer and severe dementia, and he was brought to [facility] because of increased lethargy, altered mental status and shortness of breath. The patient was evaluated in the emergency room, was thought to be septic, and he was in respiratory failure. Therefore, he was intubated and is presently on a respirator. Apparently, attempts to insert a Lindsey catheter for him in the emergency room, as well as in the intensive care unit were not successful. The catheter does go in for about 3-4 cm, then there is resistance. Therefore, a Urological consultation was requested. The patient is on a respirator, and he has severe dementia; therefore he is not capable of giving any history. However, I did review his record from the hospital here and basically, it appears he has had Alzheimer disease and severe dementia, history of dysphagia. He has also paroxysmal atrial fibrillation, COPD, and at the present he is septic. The patient underwent a renal ultrasound, which showed bilateral renal cysts, but also the bladder to be full and have some debris in it. PAST SURGICAL HISTORY: Unknown. SOCIAL HISTORY: From the record says that he does not drink any alcohol and never been a smoker, and there is no history of drug abuse. PHYSICAL EXAMINATION: GENERAL APPEARANCE: Reveals an elderly male. He weighs 77 kg, and he is 71 inches tall. He is on a respirator. HEAD AND NECK: Otherwise unremarkable. VITAL SIGNS: He is very tachycardic because of the atrial fibrillation. He has a temperature of 100.2, and when he came in he had a temperature of 102.2. The blood pressure is presently at 99/63, and respirations are 24. Pulse oximeter 100 percent. ABDOMEN: Soft, and there is no mass palpable. He reacts; however, to pain over the bladder area. EXTERNAL GENITALIA: Are normal. RECTAL: The prostate is not large, and it is flat. EXTREMITIES: Reveal no edema. LABORATORY: His CBC shows a white count of 17.7, hemoglobin 8.6, hematocrit 27.0, platelet count 352,000. On admission, his BUN was 53, creatinine 2.35, sodium 142, potassium 4.6, chloride 111, CO2 of 22. Lactic acid was 2.5, repeated 1.9 and then 1.3. A chest x-ray was also done and reported as left perihilar and mid lung zone pneumonia, and he does have atherosclerosis and the endotracheal tube in satisfactory position. IMPRESSION: Urinary retention. Patient most likely has a urethral stricture and urinary tract infection. PLAN: Is to insert a Lindsey catheter for him after doing urethral dilatation. The urethral dilatation was then done. The genital area was prepped and draped in the usual sterile manner, and I injected 20 mL of 2 percent lidocaine gel inside his urethra and waited for 5 minutes for it to work as local anesthetic. Then I tried to pass the 16-Danish Lindsey catheter to have been an idea as to where is the blockage and indeed, there was what appears to be severe stricture around 4-5 cm in the distal urethra. Then I went ahead and used a spiral tip 4-Danish filiforms and after some manipulation, I was able to bypass the 1st stricture, and he also had proximal strictures, and the filiforms did work its way all the way into the bladder. Then I dilated him with the followers, starting at 10-Danish and going up to 18-Danish. The urethra is very stiff, very scarred, and I had to forcefully push the dilators in, and the urine that was draining was cloudy urine, most likely infected. After I dilated him to 18-Danish, then I did insert a 14-Danish coude catheter and inflated the balloon with 10 mL of sterile water and connected the catheter to a drainage bag. Then 500 mL of cloudy urine drained, and urine was sent for culture and sensitivity. Patient is already being followed by Infectious Disease and a machinery engineer for his infection and renal failure. I will follow his urological problem with you. I do thank you for allowing me to help in his care. Dictated By: Tarun Solis MD /walker/mojgan /Document#: [id number]
[2017-06-12] MEDS ORDERED: AMIODARONE 150MG/D5W BOLUS 100 ML IV ONE (20:30)
[2017-06-12] MEDS ORDERED: SOD CHLORIDE 0.9% 500 ML IV ONE (20:30)
[2017-06-12] MEDS ORDERED: AMIODARONE 900 MG in DEXTROSE 5% 482 ML IV SCH (20:30)
[2017-06-12] MEDS ORDERED: NORepinephrine 8MG/250 ML (PMX 250 ML IV SCH (20:30)
[2017-06-12] MEDS: METOPROLOL 50 MG TAB PO SCH (21:00)
[2017-06-12] MEDS ORDERED: DOCUSATE SODIUM 100 MG CAP PO SCH (21:00)
[2017-06-12] MEDS: TAMSULOSIN (SR) 0.4 MG CAP PO SCH (21:42)
[2017-06-12] MEDS: SACCHAROMYCES BOULARDII 250 MG CAP PO SCH (21:42)
[2017-06-12] MEDS: ATORVASTATIN 20 MG TAB PO SCH (21:43)
[2017-06-13] VITALS (104 sets, daily range): BP systolic 83–143; BP diastolic 45–103; PULSE 70–140; RESP 17–31
[2017-06-13] MEDS: PROPOFOL 100 ML IV SCH ×4 (04:12→21:40)
[2017-06-13] MEDS: morphine 2 MG INJ IV PRN (05:15)
[2017-06-13 05:54] LABS: ALBUMIN/GLOBULIN RATIO 0.88; BILIRUBIN,INDIRECT 0.2 mg/dl (0-1.1); BILIRUBIN,TOTAL 0.2 mg/dl (0.2-1.3); CALCIUM 8.5 mg/dl (8.4-10.2); CHOL/HDL RATIO 2.9 RATIO; CREATININE 1.53 mg/dl (0.61-1.24); MAGNESIUM 2.1 mg/dl (1.7-2.5); PHOSPHORUS 2.9 mg/dl (2.5-4.9); POTASSIUM 4.2 mmol/L (3.5-5.1); TOTAL PROTEIN 6.4 g/dl (6.1-8.1)
[2017-06-13] MEDS ORDERED: PANTOPRAZOLE 40 MG INJ IV SCH (06:00)
[2017-06-13 06:02] LABS: ADD UMIC YES; UR ASCORBIC ACID NEGATIVE (NEGATIVE); UR BILIRUBIN (Dip) NEGATIVE (NEGATIVE); UR BLOOD (Dip) 1+ mg/dL (NEGATIVE); UR CLARITY TURBID (CLEAR); UR COLOR AMBER (YELLOW); UR GLUCOSE (Dip) NEGATIVE (NEGATIVE); UR KETONES (Dip) NEGATIVE (NEGATIVE); UR LEUKOCYTE ESTERASE (Dip) 3+ Leu/ul (NEGATIVE); UR MUCUS FEW /HPF (NONE SEEN); UR NITRITE (Dip) NEGATIVE (NEGATIVE); UR RBC 51 /HPF (0-5); UR SPECIFIC GRAVITY (Dip) 1.017 (1.003-1.030); UR TOTAL PROTEIN (Dip) 2+ mg/dl (NEGATIVE); UR UROBILINOGEN (Dip) NEGATIVE (NEGATIVE)
[2017-06-13 06:05] LABS: T3 UPTAKE 45.6 % (23.5-40.5)
[2017-06-13 06:19] LABS: THYROID STIMULATING HORMONE 1.84 MIU/L (0.465-4.680)
--- NOTE | 2017-06-13 06:30 | RADRPT ---
PROCEDURE: XR Chest. CLINICAL INDICATION: Respiratory failure TECHNIQUE: AP Portable chest. COMPARISON: 06/12/2017 FINDINGS: Interval placement of a nasogastric tube , coursing the left upper abdomen. The endotracheal tube is in satisfactory position. The patient is rotated. The cardiac silhouette is normal. The aortic arch is calcified. There is tubing artifact over the right lung apex. No pneumothorax is seen. Left perihilar interstitial densities are again demonstrated. There is right basilar atelectas is. The osseous structures are intact. IMPRESSION: ET and NG tubes in place. Left perihilar interstitial infiltrate. No significant change. Physician Natalie Date Time Electronically viewed and signed by Physician Natalie on 06/13/2017 06:29 CS/
[2017-06-13] MEDS: METOPROLOL 50 MG TAB PO SCH (07:30)
[2017-06-13 08:11] LABS: AADO2 Arterial 123.8 mmHg (7.0-24.0); Allen Test ACCEPTAB; Arterial COHb 0.3 % (0.0-3.0); Arterial Fraction of Oxyhgb 97.4 % (93.0-99.0); Arterial HCO3 21.1 mmol/L (22.0-26.0); Arterial MetHb 0.4 % (0.0-1.5); Arterial Total Hemglobin 7.6 g/dl (12.0-18.0); MODE VENT - AC
[2017-06-13] MEDS: GABAPENTIN 300 MG CAP PO SCH ×3 (08:35→20:42)
[2017-06-13] MEDS: ASCORBIC ACID 500 MG TAB PO SCH (08:35)
[2017-06-13] MEDS: SACCHAROMYCES BOULARDII 250 MG CAP PO SCH ×2 (08:35→20:42)
[2017-06-13] MEDS: MULTIVITAMINS THERAPEUTIC TAB PO SCH (08:35)
[2017-06-13] MEDS: FINASTERIDE 5 MG TAB PO SCH (08:35)
[2017-06-13] MEDS ORDERED: FERROUS SULFATE (EC) 325 MG TAB PO SCH (09:00)
[2017-06-13] MEDS ORDERED: DIVALPROEX (EC) 500 MG TAB PO SCH (09:00)
--- NOTE | 2017-06-13 10:07 | CONS ---
Date/Time of Note Date/Time of Note DATE: 06/13/17 TIME: 10:02 Consult Date/Type/Reason Admit Date/Time Jun 12, 2017 at 11:47 Initial Consult Date 06/12/17 Type of Consultation: Pulmonary Ordering Provider: LETI LOPEZ Subjective Patient remains intubated sedated. Atrial fibrillation with rapid ventricular rate overnight. Continues Levophed and amiodarone. Objective Vital Signs Date Time Temp Pulse Resp B/P Pulse Ox O2 Delivery O2 Flow Rate FiO2 06/13/17 08:45 96 21 118/60 100 06/13/17 08:00 40 06/13/17 08:00 99.0 Mechanical Ventilator 06/12/17 09:45 8.0 Intake and Output 06/12/17 06/12/17 06/13/17 15:00 23:00 07:00 Intake Total 27.0 ml 742.72 ml 297.97 ml Output Total 195 ml 600 ml Balance 27.0 ml 547.72 ml -302.03 ml Exam PHYSICAL EXAMINATION: GENERAL: On examination, elderly-appearing gentleman, orally intubated, grimaces to painful stimuli. VITAL SIGNS: HEENT: Orally intubated. Dry mucous membranes. Pupils equal and react to light. CARDIAC: S1, S2. No added sounds or murmurs. CHEST: Diminished air entry bilaterally with few rales. ABDOMEN: Soft, nontender. No guarding or rebound. EXTREMITIES: No cyanosis, clubbing, or edema. NEUROLOGICALLY: No focal deficits. Results/Medications Result Diagram: 06/12/17 0948 06/13/17 0454 Results 24 hrs Laboratory Tests Test 06/12/17 10:35 06/12/17 12:37 06/12/17 17:06 06/12/17 19:30 Digoxin Level 0.7 L Lactic Acid Level 1.9 1.3 Urine Color JAN Urine Clarity TURBID A Urine pH 8.0 Urine Specific [place] 1.017 Urine Ketones NEGATIVE Urine Nitrite NEGATIVE Urine Bilirubin NEGATIVE Urine Urobilinogen NEGATIVE Urine Leukocyte Esterase 3+ H Urine Microscopic RBC 51 H Urine Microscopic WBC > 182 H Urine Mucus FEW A Urine Hemoglobin 1+ H Urine Random Creatinine 115.51 Urine Random Sodium 65 Urine Glucose NEGATIVE Urine Total Protein 2+ H Test 06/13/17 04:54 06/13/17 07:00 Sodium Level 143 Potassium Level 4.2 Chloride Level 115 H Carbon Dioxide Level 23 Anion Gap 9 # Blood Urea Nitrogen 39 #H Creatinine 1.53 H Glucose Level 106 Hemoglobin A1c 5.3 Calcium Level 8.5 Phosphorus Level 2.9 Magnesium Level 2.1 Total Bilirubin 0.2 Direct Bilirubin 0.00 Indirect Bilirubin 0.2 Aspartate Amino Transf (AST/SGOT) 17 Alanine Aminotransferase (ALT/SGPT) 25 Alkaline Phosphatase 62 Total Protein 6.4 Albumin 3.0 L Globulin 3.40 H Albumin/Globulin Ratio 0.88 Triglycerides Level 66 Cholesterol Level 76 L LDL Cholesterol, Calculated 37 HDL Cholesterol 26 L Cholesterol/HDL Ratio 2.9 Thyroid Stimulating Hormone (TSH) 1.840 Free Thyroxine Index 2.55 Thyroxine (T4) 5.6 Triiodothyronine (T3) Uptake 45.6 H Blood Gas Specimen Source Blood arterial Arterial Blood Date Drawn 06/13/2017 7:20:40 AM Arterial Blood pH (Temp corrected) 7.420 Arterial Blood pCO2 (Temp correct) 33.3 L Arterial Blood pO2 (Temp corrected) 123.1 H Arterial Blood HCO3 21.1 L Arterial Blood Base Excess -3.0 Arterial Blood Oxygen Saturation 98.1 Vishal Test ACCEPTAB Arterial Blood Gas Puncture Site Right Radial Arterial Blood Carboxyhemoglobin 0.3 Arterial Blood Methemoglobin 0.4 Blood Gas A-a O2 Differential 123.8 H Oxyhemoglobin Percent 97.4 Total Hemoglobin 7.6 L Blood Gas Temperature 37.0 Blood Gas Respiration Rate 18.0 Blood Gas Actual Respiration Rate 18 Blood Gas Modality VENT - AC FiO2 40.0 Blood Gas Tidal Volume 550.0 Blood Gas Low PEEP Setting 5.0 Blood Gas Notified Whom JLD Blood Gas Notified Time 06/13/2017 8:11:17 AM Medications Current Medications Ascorbic Acid (Vitamin C) 500 mg DAILY PO Last administered on 06/13/17 08:35 ; Admin Dose 500 MG; Start 06/13/17 at 09:00 Atorvastatin Calcium (Lipitor) 20 mg QHS PO Last administered on 06/12/17 21: 43; Admin Dose 20 MG; Start 06/12/17 at 21:00 Digoxin (Digoxin) 0.125 mg DAILY@13 PO ; Start 06/13/17 at 13:00 Divalproex Sodium (Depakote) 500 mg DAILY PO Last administered on 06/13/17 08: 34; Admin Dose 500 MG; Start 06/13/17 at 09:00 Ferrous Sulfate (Ferrous Sulfate (Ec)) 325 mg DAILY PO Last administered on 08:35; Admin Dose 325 MG; Start 06/13/17 at 09:00 Finasteride (Proscar) 5 mg DAILY PO Last administered on 06/13/17 08:35; Admin Dose 5 MG; Start 06/13/17 at 09:00 Gabapentin (Neurontin) 300 mg TID PO Last administered on 06/13/17 08:35; Admin Dose 300 MG; Start 06/12/17 at 13:00 Albuterol/ Ipratropium (Duoneb) 3 ml Q2H PRN NEB CONSTIPATION; Start 06/12/17 at 12:30 Metoprolol Tartrate (Lopressor) 50 mg BID PO ; Start 06/12/17 at 21:00 Multivitamins Therapeutic (Theragran) 1 tab DAILY PO Last administered on 08:35; Admin Dose 1 TAB; Start 06/13/17 at 09:00 Saccharomyces Boulardii (Florastor) 250 mg BID PO Last administered on 08:35; Admin Dose 250 MG; Start 06/12/17 at 21:00 Tamsulosin HCl (Flomax) 0.8 mg HS PO Last administered on 06/12/17 21:42; Admin Dose 0.8 MG; Start 06/12/17 at 21:00 Ondansetron HCl (Zofran Inj) 4 mg Q6H PRN IV NAUSEA AND/OR VOMITING; Start at 12:30 Acetaminophen (Tylenol Tab) 650 mg Q6H PRN PO PAIN LEVEL 1-3 OR FEVER; Start at 12:30 Acetaminophen (Tylenol Supp) 650 mg Q6H PRN [place] PAIN LEVEL 1-3 OR FEVER; Start 06/12/17 at 12:30 Acetaminophen/ Hydrocodone Bitart ([place] (5/325)) 1 tab Q6H PRN PO MODERATE PAIN LEVEL 4-6 Last administered on 06/13/17 08:36; Admin Dose 1 TAB; Start at 12:30 Acetaminophen/ Hydrocodone Bitart ([place] (5/325)) 2 tab Q6H PRN PO SEVERE PAIN LEVEL 7-10; Start 06/12/17 at 12:30 Morphine Sulfate (morphine) 2 mg Q4H PRN IV SEVERE PAIN LEVEL 7-10; Start 06/12 at 12:30 Docusate Sodium (Colace) 100 mg Q12H PRN PO CONSTIPATION; Start 06/12/17 at 12: 30 Magnesium Hydroxide (Milk Of Mag) 30 ml DAILY PRN PO CONSTIPATION; Start at 12:30 Bisacodyl (Dulcolax Supp) 10 mg DAILY PRN [place] CONSTIPATION; Start 06/12/17 at 12 :30 Pantoprazole 40 mg 40 mg DAILY@06 IV Last administered on 06/13/17 05:15; Admin Dose 40 MG; Start 06/13/17 at 06:00 Levofloxacin/ Dextrose (Levaquin 750 Mg/ D5W 150 ml (Pmx)) 150 ml @ 150 mls/hr Q48H IV ; Start 06/14/17 at 09:00 Morphine Sulfate 2 mg 2 mg Q2 PRN IV PAIN LEVEL 4-7 Last administered on 05:15; Admin Dose 2 MG; Start 06/12/17 at 14:30 Propofol 100 ml @ 2.31 mls/hr Q12H IV Last administered on 06/13/17 04:12; Admin Dose 6.93 MLS/HR; Start 06/12/17 at 16:30 Norepinephrine 16 mg/Dextrose 500 ml @ 1.87 mls/hr TITRATE IV ; Start 06/12/17 at 20:30 Amiodarone HCl 900 mg/Dextrose 500 ml @ 0 mls/hr Q0M IV Last administered on 21:54; Admin Dose 33.4 MLS/HR; Start 06/12/17 at 20:30; Stop 06/13/17 at 20:29 Vancomycin HCl (Vancocin) 250 ml @ 166.667 mls/hr Q24H IVPB ; Start 06/13/17 at 10:00 Assessment/Plan Chief Complaint/Hosp Course IMPRESSION: 1. Healthcare associate pneumonia, L infiltrate 2. Possible aspiration component. 3. Hypoxemic respiratory failure. 4. History of dementia. 5. History of atrial fibrillation. PLAN: 1. Continue mechanical ventilation. 2. Continue broad-spectrum antibiotic coverage. 3. Continue aspiration precautions. 4. Deep vein thrombosis and gastrointestinal prophylaxis. 5. Discussed code status with family again. 6. Pressor support 6. Rate control per cardiology. cc40 mins Prognosis guarded. Problems: LEIGHA DE LEÓN MD, [facility] Jun 13, 2017 10:07
[2017-06-13] MEDS: VANCOMYCIN 1 GM (PMX) 250 ML IVPB SCH (10:34)
[2017-06-13] MEDS ORDERED: SOD CHLORIDE 0.9% 1,000 ML IV ONE (11:00)
[2017-06-13] MEDS ORDERED: LIDOCAINE 1% (MPF) 5 ML VIAL SC ONE (11:00)
--- NOTE | 2017-06-13 11:01 | CONS ---
Date/Time of Note Date/Time of Note DATE: 06/13/17 TIME: 10:53 Assessment/Plan Assessment/Plan Additional Assessment/Plan Septic shock on IV pressor Paroxysmal atrial fibrillation with rapid ventricular rates Vent dependent respiratory failure Acute kidney injury -Patient with history of previous paroxysmal atrial fibrillation as per records and was in sinus rhythm upon initial admission. With Lindsey placement, patient went into atrial fibrillation with rapid ventricular rates. He is currently on IV amiodarone, would continue as per protocol. Continue IV pressor to maintain SBP greater than 90 and/or map above 60. Renal function is improving, would give IV fluids if no contraindication. Would hold any nephrotoxic or antihypertensive medications. Check echocardiogram. Greater than 31 minutes of critical care time in the care of this patient Consultation Date/Type/Reason Admit Date/Time Jun 12, 2017 at 11:47 Type of Consultation: cv Reason for Consultation Atrial fibrillation Hx of Present Illness This is a 72-year-old male with past medical history of advanced dementia, paroxysmal atrial fibrillation who was transferred from a nursing facility to the emergency room secondary to worsening mental status. Patient found to be in sepsis with hypotension concerning for shock likely secondary to pneumonia. Patient intubated and on IV pressor. Patient with urinary retention our urology colleagues place a Lindsey with significant difficulty. In discussion with the nursing staff, patient went into atrial fibrillation at the time of this Lindsey placement. He has been started on IV amiodarone. History is obtained from medical chart and the nursing staff given patient intubated and sedated. Unable to be performed at the current time given patient's mental status and intubation Constitutional: requiring O2 Past Medical History Medical History: other (Atrial fibrillation, dementia) Past Surgical History Past Surgical Hx: other Family History Significant Family History: no pertinent family hx Social History Alcohol Use: none Smoking Status: Never smoker Drug Use: none Other Social History From long-term facility Exam/Review of Systems Vital Signs Vitals Vital Signs Date Time Temp Pulse Resp B/P Pulse Ox O2 Delivery O2 Flow Rate FiO2 06/13/17 08:45 96 21 118/60 100 06/13/17 08:00 40 06/13/17 08:00 99.0 Mechanical Ventilator 06/12/17 09:45 8.0 Intake and Output 06/12/17 06/12/17 06/13/17 15:00 23:00 07:00 Intake Total 27.0 ml 742.72 ml 297.97 ml Output Total 195 ml 600 ml Balance 27.0 ml 547.72 ml -302.03 ml Exam Sedated and intubated, no apparent distress Head: normocephalic ENMT: intubated Respiratory: other (Coarse breath sounds bilaterally with scattered rhonchi, no wheezing) Cardiovascular: irregular rhythm, other (S1-S2 heard, tachycardic) Gastrointestinal: bowel sounds, other (No grimacing with palpation), soft Extremities: other (No significant edema) Results Result Diagram: 06/12/17 0948 06/13/17 0454 Results 24 hrs Laboratory Tests Test 06/12/17 12:37 06/12/17 17:06 06/12/17 19:30 06/13/17 04:54 Lactic Acid Level 1.9 1.3 Urine Color JAN Urine Clarity TURBID A Urine pH 8.0 Urine Specific [place] 1.017 Urine Ketones NEGATIVE Urine Nitrite NEGATIVE Urine Bilirubin NEGATIVE Urine Urobilinogen NEGATIVE Urine Leukocyte Esterase 3+ H Urine Microscopic RBC 51 H Urine Microscopic WBC > 182 H Urine Mucus FEW A Urine Hemoglobin 1+ H Urine Random Creatinine 115.51 Urine Random Sodium 65 Urine Glucose NEGATIVE Urine Total Protein 2+ H Sodium Level 143 Potassium Level 4.2 Chloride Level 115 H Carbon Dioxide Level 23 Anion Gap 9 # Blood Urea Nitrogen 39 #H Creatinine 1.53 H Glucose Level 106 Hemoglobin A1c 5.3 Calcium Level 8.5 Phosphorus Level 2.9 Magnesium Level 2.1 Total Bilirubin 0.2 Direct Bilirubin 0.00 Indirect Bilirubin 0.2 Aspartate Amino Transf (AST/SGOT) 17 Alanine Aminotransferase (ALT/SGPT) 25 Alkaline Phosphatase 62 Total Protein 6.4 Albumin 3.0 L Globulin 3.40 H Albumin/Globulin Ratio 0.88 Triglycerides Level 66 Cholesterol Level 76 L LDL Cholesterol, Calculated 37 HDL Cholesterol 26 L Cholesterol/HDL Ratio 2.9 Thyroid Stimulating Hormone (TSH) 1.840 Free Thyroxine Index 2.55 Thyroxine (T4) 5.6 Triiodothyronine (T3) Uptake 45.6 H Test 06/13/17 07:00 Blood Gas Specimen Source Blood arterial Arterial Blood Date Drawn 06/13/2017 7:20:40 AM Arterial Blood pH (Temp corrected) 7.420 Arterial Blood pCO2 (Temp correct) 33.3 L Arterial Blood pO2 (Temp corrected) 123.1 H Arterial Blood HCO3 21.1 L Arterial Blood Base Excess -3.0 Arterial Blood Oxygen Saturation 98.1 Vishal Test ACCEPTAB Arterial Blood Gas Puncture Site Right Radial Arterial Blood Carboxyhemoglobin 0.3 Arterial Blood Methemoglobin 0.4 Blood Gas A-a O2 Differential 123.8 H Oxyhemoglobin Percent 97.4 Total Hemoglobin 7.6 L Blood Gas Temperature 37.0 Blood Gas Respiration Rate 18.0 Blood Gas Actual Respiration Rate 18 Blood Gas Modality VENT - AC FiO2 40.0 Blood Gas Tidal Volume 550.0 Blood Gas Low PEEP Setting 5.0 Blood Gas Notified Whom JLD Blood Gas Notified Time 06/13/2017 8:11:17 AM Medications Medications Current Medications Ascorbic Acid (Vitamin C) 500 mg DAILY PO Last administered on 06/13/17 08:35 ; Admin Dose 500 MG; Start 06/13/17 at 09:00 Atorvastatin Calcium (Lipitor) 20 mg QHS PO Last administered on 06/12/17 21: 43; Admin Dose 20 MG; Start 06/12/17 at 21:00 Digoxin (Digoxin) 0.125 mg DAILY@13 PO ; Start 06/13/17 at 13:00 Divalproex Sodium (Depakote) 500 mg DAILY PO Last administered on 06/13/17 08: 34; Admin Dose 500 MG; Start 06/13/17 at 09:00 Ferrous Sulfate (Ferrous Sulfate (Ec)) 325 mg DAILY PO Last administered on 08:35; Admin Dose 325 MG; Start 06/13/17 at 09:00 Finasteride (Proscar) 5 mg DAILY PO Last administered on 06/13/17 08:35; Admin Dose 5 MG; Start 06/13/17 at 09:00 Gabapentin (Neurontin) 300 mg TID PO Last administered on 06/13/17 08:35; Admin Dose 300 MG; Start 06/12/17 at 13:00 Albuterol/ Ipratropium (Duoneb) 3 ml Q2H PRN NEB CONSTIPATION; Start 06/12/17 at 12:30 Metoprolol Tartrate (Lopressor) 50 mg BID PO ; Start 06/12/17 at 21:00 Multivitamins Therapeutic (Theragran) 1 tab DAILY PO Last administered on 08:35; Admin Dose 1 TAB; Start 06/13/17 at 09:00 Saccharomyces Boulardii (Florastor) 250 mg BID PO Last administered on 08:35; Admin Dose 250 MG; Start 06/12/17 at 21:00 Tamsulosin HCl (Flomax) 0.8 mg HS PO Last administered on 06/12/17 21:42; Admin Dose 0.8 MG; Start 06/12/17 at 21:00 Ondansetron HCl (Zofran Inj) 4 mg Q6H PRN IV NAUSEA AND/OR VOMITING; Start at 12:30 Acetaminophen (Tylenol Tab) 650 mg Q6H PRN PO PAIN LEVEL 1-3 OR FEVER; Start at 12:30 Acetaminophen (Tylenol Supp) 650 mg Q6H PRN [place] PAIN LEVEL 1-3 OR FEVER; Start 06/12/17 at 12:30 Acetaminophen/ Hydrocodone Bitart ([place] (5/325)) 1 tab Q6H PRN PO MODERATE PAIN LEVEL 4-6 Last administered on 06/13/17 08:36; Admin Dose 1 TAB; Start at 12:30 Acetaminophen/ Hydrocodone Bitart ([place] (5/325)) 2 tab Q6H PRN PO SEVERE PAIN LEVEL 7-10; Start 06/12/17 at 12:30 Morphine Sulfate (morphine) 2 mg Q4H PRN IV SEVERE PAIN LEVEL 7-10; Start 06/12 at 12:30 Docusate Sodium (Colace) 100 mg Q12H PRN PO CONSTIPATION; Start 06/12/17 at 12: 30 Magnesium Hydroxide (Milk Of Mag) 30 ml DAILY PRN PO CONSTIPATION; Start at 12:30 Bisacodyl (Dulcolax Supp) 10 mg DAILY PRN [place] CONSTIPATION; Start 06/12/17 at 12 :30 Pantoprazole 40 mg 40 mg DAILY@06 IV Last administered on 06/13/17 05:15; Admin Dose 40 MG; Start 06/13/17 at 06:00 Levofloxacin/ Dextrose (Levaquin 750 Mg/ D5W 150 ml (Pmx)) 150 ml @ 150 mls/hr Q48H IV ; Start 06/14/17 at 09:00 Morphine Sulfate 2 mg 2 mg Q2 PRN IV PAIN LEVEL 4-7 Last administered on 9/28/ 17at 05:15; Admin Dose 2 MG; Start 06/12/17 at 14:30 Propofol 100 ml @ 2.31 mls/hr Q12H IV Last administered on 06/13/17 04:12; Admin Dose 6.93 MLS/HR; Start 06/12/17 at 16:30 Norepinephrine 16 mg/Dextrose 500 ml @ 1.87 mls/hr TITRATE IV ; Start 06/12/17 at 20:30 Amiodarone HCl 900 mg/Dextrose 500 ml @ 0 mls/hr Q0M IV Last administered on 21:54; Admin Dose 33.4 MLS/HR; Start 06/12/17 at 20:30; Stop 06/13/17 at 20:29 Vancomycin HCl (Vancocin) 250 ml @ 166.667 mls/hr Q24H IVPB Last administered on 06/13/17 10:34; Admin Dose 166.667 MLS/HR; Start 06/13/17 at 10:00 Procedures Procedures ECG done June 12 at 10:06 AM demonstrates sinus tachycardia 110 bpm, QRS 82 ms, nonspecific ST abnormalities Rihc Rader DO Jun 13, 2017 11:00
[2017-06-13 11:39] LABS: ABNORMAL IP MESSAGE 1; BASOPHILS % 0.1 % (0.0-2.0); EOSINOPHILS % 0.2 % (0.0-7.0); LYMPHOCYTES # 1.5 10^3/ul (0.8-2.9); LYMPHOCYTES % 10.5 % (15.0-51.0); MEAN CORPUSCULAR HGB CONC 30.5 g/dl (32.0-37.0); MEAN CORPUSCULAR VOLUME 101.9 fl (82.0-101.0); MEAN PLATELET VOLUME 12.8 fl (7.4-10.4); MONOCYTE # 1.6 10^3/ul (0.3-0.9); MONOCYTES % 11.4 % (0.0-11.0); NEUTROPHIL # 11.1 10^3/ul (1.6-7.5); NEUTROPHILS % 77.3 % (39.0-77.0); PLATELET COUNT 295 10^3/UL (140-415); POSITIVE DIFF @See below; RED BLOOD COUNT 2.16 10^6/ul (4.70-6.10); RED CELL DISTRIBUTION WIDTH 18.1 % (11.5-14.5); WHITE BLOOD COUNT 14.4 10^3/ul (4.8-10.8)
[2017-06-13 11:45] LABS: HEMOGLOBIN 6.7 g/dl (14.0-18.0)
[2017-06-13 11:46] LABS: PATH REVIEW? YES
[2017-06-13] MEDS ORDERED: MEROPENEM 500MG/50 ML (PMX) 50 ML IVPB SCH (12:00)
--- NOTE | 2017-06-13 12:03 | PN ---
Date/Time of Note Date/Time of Note DATE: 06/13/17 TIME: 10:56 Assessment/Plan VTE Prophylaxis VTE Prophylaxis Intervention: SCD's Lines/Catheters IV [facility]ter Type (from [facility]): Peripheral IV Urinary Cath still in place: Yes Reason Cath still needed: urinary retention Assessment/Plan Chief Complaint/Hosp Course Impression and plan 1. Sepsis likely secondary to aspiration pneumonia with shock. On vasopressors at this time. Wean off as tolerated. Patient does have extensive history of Alzheimer's as well as dysphagia. Continue antibiotics. On mechanical ventilation at this time. Conservation Agent following. Monitor for clinical improvement . 2. Respiratory failure secondary to #1. Patient intubated on mechanical ventilation at this time. Conservation Agent following. Vent liberation per ui application developer 3. Alzheimer's disease. Continue with aspiration precautions. Also continue with skin precautions as well. 4. A. fib with RVR. Emergency Medical Technician consulted. Follow-up recommendations. Continue telemetry monitoring. On amiodarone for now. 5. History of COPD. Will provide with bronchodilators as needed. Conservation Agent to follow. 6. BPH. Lindsey in place per urologist. Monitor output. Disposition and plan: Emergency Medical Technician consulted for A. fib with RVR. On amiodarone drip at this time. Wean off vasopressors as tolerated. Continue ICU monitoring Discussed plan of care with Dr. Quinteros Critical CARE time: 30 minutes Problems: Subjective 24 Hr Interval Summary Free Text/Dictation intubated and sedated Exam/Review of Systems Vital Signs Vitals Vital Signs Date Time Temp Pulse Resp B/P Pulse Ox O2 Delivery O2 Flow Rate FiO2 06/13/17 08:45 96 21 118/60 100 06/13/17 08:00 40 06/13/17 08:00 99.0 Mechanical Ventilator 06/12/17 09:45 8.0 Intake and Output 06/12/17 06/12/17 06/13/17 15:00 23:00 07:00 Intake Total 27.0 ml 742.72 ml 297.97 ml Output Total 195 ml 600 ml Balance 27.0 ml 547.72 ml -302.03 ml Exam Constitutional: other (intubated and sedated ) Head: normocephalic Respiratory: other (minimally ) Cardiovascular: irregular rhythm Gastrointestinal: non-tender, soft Musculoskeletal: nl extremities to inspection Extremities: calf tenderness, normal pulses Neurological: 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 II-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 intact, nl mental status, nl speech Results Result Diagram: 06/12/17 0948 06/13/17 0454 Results 24 hrs Laboratory Tests Test 06/12/17 12:37 06/12/17 17:06 06/12/17 19:30 06/13/17 04:54 Lactic Acid Level 1.9 1.3 Urine Color JAN Urine Clarity TURBID A Urine pH 8.0 Urine Specific [place] 1.017 Urine Ketones NEGATIVE Urine Nitrite NEGATIVE Urine Bilirubin NEGATIVE Urine Urobilinogen NEGATIVE Urine Leukocyte Esterase 3+ H Urine Microscopic RBC 51 H Urine Microscopic WBC > 182 H Urine Mucus FEW A Urine Hemoglobin 1+ H Urine Random Creatinine 115.51 Urine Random Sodium 65 Urine Glucose NEGATIVE Urine Total Protein 2+ H Sodium Level 143 Potassium Level 4.2 Chloride Level 115 H Carbon Dioxide Level 23 Anion Gap 9 # Blood Urea Nitrogen 39 #H Creatinine 1.53 H Glucose Level 106 Hemoglobin A1c 5.3 Calcium Level 8.5 Phosphorus Level 2.9 Magnesium Level 2.1 Total Bilirubin 0.2 Direct Bilirubin 0.00 Indirect Bilirubin 0.2 Aspartate Amino Transf (AST/SGOT) 17 Alanine Aminotransferase (ALT/SGPT) 25 Alkaline Phosphatase 62 Total Protein 6.4 Albumin 3.0 L Globulin 3.40 H Albumin/Globulin Ratio 0.88 Triglycerides Level 66 Cholesterol Level 76 L LDL Cholesterol, Calculated 37 HDL Cholesterol 26 L Cholesterol/HDL Ratio 2.9 Thyroid Stimulating Hormone (TSH) 1.840 Free Thyroxine Index 2.55 Thyroxine (T4) 5.6 Triiodothyronine (T3) Uptake 45.6 H Test 06/13/17 07:00 Blood Gas Specimen Source Blood arterial Arterial Blood Date Drawn 06/13/2017 7:20:40 AM Arterial Blood pH (Temp corrected) 7.420 Arterial Blood pCO2 (Temp correct) 33.3 L Arterial Blood pO2 (Temp corrected) 123.1 H Arterial Blood HCO3 21.1 L Arterial Blood Base Excess -3.0 Arterial Blood Oxygen Saturation 98.1 Vishal Test ACCEPTAB Arterial Blood Gas Puncture Site Right Radial Arterial Blood Carboxyhemoglobin 0.3 Arterial Blood Methemoglobin 0.4 Blood Gas A-a O2 Differential 123.8 H Oxyhemoglobin Percent 97.4 Total Hemoglobin 7.6 L Blood Gas Temperature 37.0 Blood Gas Respiration Rate 18.0 Blood Gas Actual Respiration Rate 18 Blood Gas Modality VENT - AC FiO2 40.0 Blood Gas Tidal Volume 550.0 Blood Gas Low PEEP Setting 5.0 Blood Gas Notified Whom JLD Blood Gas Notified Time 06/13/2017 8:11:17 AM Medications Medications Current Medications Ascorbic Acid (Vitamin C) 500 mg DAILY PO Last administered on 06/13/17 08:35 ; Admin Dose 500 MG; Start 06/13/17 at 09:00 Atorvastatin Calcium (Lipitor) 20 mg QHS PO Last administered on 06/12/17 21: 43; Admin Dose 20 MG; Start 06/12/17 at 21:00 Digoxin (Digoxin) 0.125 mg DAILY@13 PO ; Start 06/13/17 at 13:00 Divalproex Sodium (Depakote) 500 mg DAILY PO Last administered on 06/13/17 08: 34; Admin Dose 500 MG; Start 06/13/17 at 09:00 Ferrous Sulfate (Ferrous Sulfate (Ec)) 325 mg DAILY PO Last administered on 08:35; Admin Dose 325 MG; Start 06/13/17 at 09:00 Finasteride (Proscar) 5 mg DAILY PO Last administered on 06/13/17 08:35; Admin Dose 5 MG; Start 06/13/17 at 09:00 Gabapentin (Neurontin) 300 mg TID PO Last administered on 06/13/17 08:35; Admin Dose 300 MG; Start 06/12/17 at 13:00 Albuterol/ Ipratropium (Duoneb) 3 ml Q2H PRN NEB CONSTIPATION; Start 06/12/17 at 12:30 Metoprolol Tartrate (Lopressor) 50 mg BID PO ; Start 06/12/17 at 21:00 Multivitamins Therapeutic (Theragran) 1 tab DAILY PO Last administered on 08:35; Admin Dose 1 TAB; Start 06/13/17 at 09:00 Saccharomyces Boulardii (Florastor) 250 mg BID PO Last administered on 08:35; Admin Dose 250 MG; Start 06/12/17 at 21:00 Tamsulosin HCl (Flomax) 0.8 mg HS PO Last administered on 06/12/17 21:42; Admin Dose 0.8 MG; Start 06/12/17 at 21:00 Ondansetron HCl (Zofran Inj) 4 mg Q6H PRN IV NAUSEA AND/OR VOMITING; Start at 12:30 Acetaminophen (Tylenol Tab) 650 mg Q6H PRN PO PAIN LEVEL 1-3 OR FEVER; Start at 12:30 Acetaminophen (Tylenol Supp) 650 mg Q6H PRN [place] PAIN LEVEL 1-3 OR FEVER; Start 06/12/17 at 12:30 Acetaminophen/ Hydrocodone Bitart ([place] (5/325)) 1 tab Q6H PRN PO MODERATE PAIN LEVEL 4-6 Last administered on 06/13/17 08:36; Admin Dose 1 TAB; Start at 12:30 Acetaminophen/ Hydrocodone Bitart ([place] (5/325)) 2 tab Q6H PRN PO SEVERE PAIN LEVEL 7-10; Start 06/12/17 at 12:30 Morphine Sulfate (morphine) 2 mg Q4H PRN IV SEVERE PAIN LEVEL 7-10; Start 06/12 at 12:30 Docusate Sodium (Colace) 100 mg Q12H PRN PO CONSTIPATION; Start 06/12/17 at 12: 30 Magnesium Hydroxide (Milk Of Mag) 30 ml DAILY PRN PO CONSTIPATION; Start at 12:30 Bisacodyl (Dulcolax Supp) 10 mg DAILY PRN [place] CONSTIPATION; Start 06/12/17 at 12 :30 Pantoprazole 40 mg 40 mg DAILY@06 IV Last administered on 06/13/17 05:15; Admin Dose 40 MG; Start 06/13/17 at 06:00 Levofloxacin/ Dextrose (Levaquin 750 Mg/ D5W 150 ml (Pmx)) 150 ml @ 150 mls/hr Q48H IV ; Start 06/14/17 at 09:00 Morphine Sulfate 2 mg 2 mg Q2 PRN IV PAIN LEVEL 4-7 Last administered on 05:15; Admin Dose 2 MG; Start 06/12/17 at 14:30 Propofol 100 ml @ 2.31 mls/hr Q12H IV Last administered on 06/13/17 04:12; Admin Dose 6.93 MLS/HR; Start 06/12/17 at 16:30 Norepinephrine 16 mg/Dextrose 500 ml @ 1.87 mls/hr TITRATE IV ; Start 06/12/17 at 20:30 Amiodarone HCl 900 mg/Dextrose 500 ml @ 0 mls/hr Q0M IV Last administered on 21:54; Admin Dose 33.4 MLS/HR; Start 06/12/17 at 20:30; Stop 06/13/17 at 20:29 Vancomycin HCl (Vancocin) 250 ml @ 166.667 mls/hr Q24H IVPB Last administered on 06/13/17 10:34; Admin Dose 166.667 MLS/HR; Start 06/13/17 at 10:00 LETI LOPEZ Jun 13, 2017 11:09
[2017-06-13] MEDS ORDERED: DIGOXIN 0.125 MG TAB PO SCH (13:00)
--- NOTE | 2017-06-13 13:06 | PN ---
DATE: 06/13/2017 INFECTIOUS DISEASE PROGRESS NOTE: SUBJECTIVE: The patient is intubated, sedated on Levophed and amiodarone drip, heart rate controlled. He is in no distress. Temperature 99, pulse 86, respirations 20, blood pressure 116/64, saturation 100 on 40 FiO2. Of note, T-max is 102.2 yesterday. No CBC this morning. BUN 39, creatinine 1.53. Microbiology, blood cultures negative, urine culture pending. INDWELLINGS: Endotracheal tube, NG tube, left upper extremity PICC line, Lindsey catheter. DIAGNOSTICS: Renal ultrasound on admission revealed thick wall urinary bladder containing debris, may be secondary to cystitis. Chest x-ray revealed left perihilar interstitial infiltrate. ALLERGIES: PENICILLIN AND NEOMYCIN. ANTIMICROBIALS: Vancomycin, Levaquin. PHYSICAL EXAMINATION: GENERAL: This is a fragile, well-developed, elderly man, who is in no distress. HEENT: Head atraumatic, normocephalic. Sclerae anicteric. Buccal mucosa dry. NECK: Supple. Trachea midline. CHEST: Rise symmetrical. Breath sounds diminished at the bases. HEART: S1, S2. ABDOMEN: Soft, bowel sounds present. EXTREMITIES: Without cyanosis. ASSESSMENT: 1. Severe sepsis with shock. 2. Acute respiratory failure, intubated. 3. Healthcare-associated pneumonia possibly aspiration type. 4. Urinary tract infection as per urinalysis. 5. Acute encephalopathy. 6. Alzheimer's dementia. 7. Acute renal failure. PLAN: We are going to change Levaquin to meropenem. Continue vancomycin. Await for urine cultures. Send a sputum culture. Follow recommendations of consultants. Dictated By: Yue Loaiza NP /walker/candi /Document#: [id number]
--- NOTE | 2017-06-13 13:30 | RADRPT ---
PROCEDURE: XR Chest. CLINICAL INDICATION: PICC line placement evaluation TECHNIQUE: Single view of the chest COMPARISON: Chest radiograph June 13, 2017 at 06:12 a FINDINGS: There has been placement of a left-sided PICC with its tip near the cavoatrial junction. The endotra cheal tube tip is 4.5 cm above the katherine and enteric tube courses of a slightly beyond the GE junct ion of the inferior extent is not well assessed on this study. There is mild left perihilar interstitial density unchanged from prior in the cardiac silhouette is borderline enlarged. There is no new consolidation. There is no definite pleural effusion. There is no pneumothorax. There is no acute osseous abnormality. IMPRESSION: 1. Interval placement of left-sided PICC with its tip at the cavoatrial junction. Additional lines and tubes as above. 2. Redemonstration of left perihilar interstitial infiltrate. No new focal consolidation. RPTAT: UU .Hadley Arteaga MD, MD Date Time Electronically viewed and signed by .Hadley Arteaga MD, on 06/13/2017 13:30 .K/
[2017-06-13] MEDS: SOD CHLORIDE 0.9% 1,000 ML IV SCH ×2 (13:51→20:42)
--- NOTE | 2017-06-13 14:04 | RADRPT ---
Echocardiogram Report Patient Name: ASHVIN POPE Gender: Male Date: 1945 Study Date: 13-Jun-2017 Guest Laundry Attendant: Jamila Flynn RDCS Location: 114 Ref. Physician: ASHVIN HU Quality: Good Procedures: Transthoracic echocardiogram with complete 2D, M-Mode, and doppler examination. Indications: Shock. 2D/M Mode Doppler Measurement Value Normal Ranges Measurement Value Normal Ranges LVIDd 2D 3.9 3.5 - 5.6 cm AV Peak Júnior 1.7 m/sec LVIDs 2D 2.2 2.1 - 4.1 cm AV Peak PG 12.2 mmHg LVPWd 2D 1.0 0.6 - 1.1 cm LVOT Peak Júnior 1.3 m/sec IVSd 2D 1.2 0.6 - 1.1 cm LVOT Peak PG 7.3 mmHg AoR Diam 2D 2.9 2.0 - 3.7 cm TR Peak Júnior 2.6 m/sec EDV 2D 67.4 cm3 TR Peak PG 26.7 mmHg ESV 2D 11.3 cm3 RVSP 45.0 mmHg LA Dimen 2D 3.8 2.3 - 4.0 cm Findings Left Ventricle: Normal left ventricular systolic function. Normal left ventricular cavity size. Normal left ventricular wall thickness. Ejection fraction is visually estimated at 65 %. Tissue Doppler/Mitral Doppler indices are indeterminate in this study due to the presence of atrial fibrillation. Right Ventricle: Normal right ventricular size. Normal right ventricular systolic function. Left Atrium: The left atrium is normal in size. Right Atrium: The right atrium is normal in size. Mitral Valve: Mild mitral leaflet calcification. Mild mitral annular calcification. Trace mitral regurgitation. Aortic Valve: No significant aortic stenosis or insufficiency. Aortic cusps appear mildly calcified. Tricuspid Valve: Normal appearance of the tricuspid valve. Estimated peak PA systolic pressure 45 mmHg. There is mild tricuspid regurgitation. Pulmonic Valve: Normal pulmonic valve appearance. Pericardium: Normal pericardium with no significant pericardial effusion. Aorta: Normal aortic root. IVC: Dilated IVC without respiratory collapse, however, patient on ventilator. Conclusions 1.Normal left ventricular systolic function. Normal left ventricular cavity size. Normal left ventricular wall thickness. Ejection fraction is visually estimated at 65 %. Tissue Doppler/Mitral Doppler indices are indeterminate in this study due to the presence of atrial fibrillation. 2.Normal right ventricular size. Normal right ventricular systolic function. 3.The left atrium is normal in size. 4.The right atrium is normal in size. 5.Estimated peak PA systolic pressure 45 mmHg. There is mild tricuspid regurgitation. 6.No significant valvular stenosis or regurgitation seen of remaining visualized valves. 7.Normal pericardium with no significant pericardial effusion. Electronically Signed By: Ashvin Hu 13-Jun-2017 14:03:55 -0700 Patient Name: ASHVIN POPE Study Date: 13-Jun-2017 [id number]
[2017-06-13 14:14] LABS: ABNORMAL IP MESSAGE 1; HEMATOCRIT 20.7 % (42.0-52.0); MEAN CORPUSCULAR HEMOGLOBIN 31.6 pg (29.0-33.0); MEAN CORPUSCULAR HGB CONC 31.4 g/dl (32.0-37.0); MEAN CORPUSCULAR VOLUME 100.5 fl (82.0-101.0); MEAN PLATELET VOLUME 12.8 fl (7.4-10.4); PLATELET COUNT 248 10^3/UL (140-415); POSITIVE DIFF @See below; RED BLOOD COUNT 2.06 10^6/ul (4.70-6.10); RED CELL DISTRIBUTION WIDTH 17.8 % (11.5-14.5); WHITE BLOOD COUNT 11.4 10^3/ul (4.8-10.8)
[2017-06-13 14:23] LABS: HEMOGLOBIN 6.5 g/dl (14.0-18.0)
--- NOTE | 2017-06-13 14:29 | RADRPT ---
Vent Rate: 110 bpm RR Interval: 0 msec ME Interval: 124 msec QRS Duration: 82 msec QT Interval: 332 msec QTC Interval: 449 msec P-R-T [place]: 85 - 76 - 67 degrees Sinus tachycardia with premature atrial complexes with aberrant conduction Otherwise normal ECG Electronically Signed By: Rich Rader [id number]
--- NOTE | 2017-06-13 15:07 | RADRPT ---
Vent Rate: 114 bpm RR Interval: 0 msec [place] Interval: 0 msec QRS Duration: 94 msec QT Interval: 350 msec QTC Interval: 482 msec P-R-T [place]: 0 - 67 - 63 degrees Atrial fibrillation with rapid ventricular response Nonspecific ST abnormality , probably digitalis effect Abnormal ECG Electronically Signed By: Rich Rader [id number]
[2017-06-13] MEDS ORDERED: SOD CHLORIDE 0.9% 250 ML IV* ONE (15:12)
[2017-06-13 15:29] LABS: ANISOCYTOSIS 1+ (0-0); MONOCYTES % (M) 7 % (0-11); PLATELET ESTIMATE NORMAL; POIKILOCYTOSIS 2+ (0-0); POLYCHROMASIA 1+ (0-0); SCHISTOCYTES 1+ (0-0); TEAR DROP CELLS 1+ (0-0)
--- NOTE | 2017-06-13 15:34 | CONS ---
Date/Time of Note Date/Time of Note DATE: 06/13/17 TIME: 15:31 Assessment/Plan Assessment/Plan Additional Assessment/Plan 72 yo male with 1) Severe Sepsis 2) Pna, Possible aspiration 3) Resp Failure, vent 4) DEEP in the setting of above, Urinary retention. 5) Likely BPH Appreciate Urology consultation S/p Adkins, with relief of obstruction Renal function improved, non oliguric Cont IVFs Keep MAPs>65mmHg AVoid Nephrotoxic Rx, avoid hypotension. Renal dose to eGFR<30 F/u UA, Urine Cx Will cont to closely follow along with you. Consultation Date/Type/Reason Admit Date/Time Jun 12, 2017 at 11:47 Initial Consult Date 06/12/17 Type of Consultation: Renal Referring Provider: LETI LOPEZ 24 HR Interval Summary Free Text/Dictation S/p adkins, needs IVFs, rapid afib, now on amio and levophed. Good UO. Subjective hx not possible: pt critical status Constitutional: requiring O2 Exam/Review of Systems Vital Signs Vitals Vital Signs Date Time Temp Pulse Resp B/P Pulse Ox O2 Delivery O2 Flow Rate FiO2 06/13/17 13:15 116 17 100/58 100 06/13/17 13:01 30 06/13/17 12:00 99.5 Mechanical Ventilator 06/12/17 09:45 8.0 Intake and Output 06/12/17 06/12/17 06/13/17 15:00 23:00 07:00 Intake Total 27.0 ml 742.72 ml 297.97 ml Output Total 195 ml 600 ml Balance 27.0 ml 547.72 ml -302.03 ml Exam Constitutional: frail, No distress Head: atraumatic ENMT: intubated, No mucosa pink and moist Neck: No jvd Respiratory: crackles/rales, No diminished breath sounds Cardiovascular: No edema, No regular rate and rhythm Gastrointestinal: non-tender, soft Neurological: other (sedated) Skin: nl turgor, No diaphoresis Results Result Diagram: 06/13/17 1350 06/13/17 0454 Results 24 hrs Laboratory Tests Test 06/12/17 17:06 06/12/17 19:30 06/13/17 04:54 06/13/17 07:00 Lactic Acid Level 1.3 Urine Color JAN Urine Clarity TURBID A Urine pH 8.0 Urine Specific [place] 1.017 Urine Ketones NEGATIVE Urine Nitrite NEGATIVE Urine Bilirubin NEGATIVE Urine Urobilinogen NEGATIVE Urine Leukocyte Esterase 3+ H Urine Microscopic RBC 51 H Urine Microscopic WBC > 182 H Urine Mucus FEW A Urine Hemoglobin 1+ H Urine Random Creatinine 115.51 Urine Random Sodium 65 Urine Glucose NEGATIVE Urine Total Protein 2+ H White Blood Count 14.4 H Red Blood Count 2.16 #L Hemoglobin 6.7 #*L Hematocrit 22.0 L Mean Corpuscular Volume 101.9 H Mean Corpuscular Hemoglobin 31.0 Mean Corpuscular Hemoglobin Concent 30.5 L Red Cell Distribution Width 18.1 H Platelet Count 295 Mean Platelet Volume 12.8 H Neutrophils % 77.3 H Lymphocytes % 10.5 L Monocytes % 11.4 H Eosinophils % 0.2 Basophils % 0.1 Nucleated Red Blood Cells % 0.0 Neutrophils # 11.1 H Lymphocytes # 1.5 Monocytes # 1.6 H Eosinophils # 0.0 Basophils # 0.0 Nucleated Red Blood Cells # 0.0 Pathologist Review (Hematology) YES Sodium Level 143 Potassium Level 4.2 Chloride Level 115 H Carbon Dioxide Level 23 Anion Gap 9 # Blood Urea Nitrogen 39 #H Creatinine 1.53 H Glucose Level 106 Hemoglobin A1c 5.3 Calcium Level 8.5 Phosphorus Level 2.9 Magnesium Level 2.1 Total Bilirubin 0.2 Direct Bilirubin 0.00 Indirect Bilirubin 0.2 Aspartate Amino Transf (AST/SGOT) 17 Alanine Aminotransferase (ALT/SGPT) 25 Alkaline Phosphatase 62 Total Protein 6.4 Albumin 3.0 L Globulin 3.40 H Albumin/Globulin Ratio 0.88 Triglycerides Level 66 Cholesterol Level 76 L LDL Cholesterol, Calculated 37 HDL Cholesterol 26 L Cholesterol/HDL Ratio 2.9 Thyroid Stimulating Hormone (TSH) 1.840 Free Thyroxine Index 2.55 Thyroxine (T4) 5.6 Triiodothyronine (T3) Uptake 45.6 H Blood Gas Specimen Source Blood arterial Arterial Blood Date Drawn 06/13/2017 7:20:40 AM Arterial Blood pH (Temp corrected) 7.420 Arterial Blood pCO2 (Temp correct) 33.3 L Arterial Blood pO2 (Temp corrected) 123.1 H Arterial Blood HCO3 21.1 L Arterial Blood Base Excess -3.0 Arterial Blood Oxygen Saturation 98.1 Vishal Test ACCEPTAB Arterial Blood Gas Puncture Site Right Radial Arterial Blood Carboxyhemoglobin 0.3 Arterial Blood Methemoglobin 0.4 Blood Gas A-a O2 Differential 123.8 H Oxyhemoglobin Percent 97.4 Total Hemoglobin 7.6 L Blood Gas Temperature 37.0 Blood Gas Respiration Rate 18.0 Blood Gas Actual Respiration Rate 18 Blood Gas Modality VENT - AC FiO2 40.0 Blood Gas Tidal Volume 550.0 Blood Gas Low PEEP Setting 5.0 Blood Gas Notified Whom JLD Blood Gas Notified Time 06/13/2017 8:11:17 AM Test 06/13/17 13:50 White Blood Count 11.4 #H Red Blood Count 2.06 L Hemoglobin 6.5 *L Hematocrit 20.7 L Mean Corpuscular Volume 100.5 Mean Corpuscular Hemoglobin 31.6 Mean Corpuscular Hemoglobin Concent 31.4 L Red Cell Distribution Width 17.8 H Platelet Count 248 Mean Platelet Volume 12.8 H Neutrophils % Segmented Neutrophils % (Manual) 82 H Lymphocytes % Lymphocytes % (Manual) 11 L Monocytes % Monocytes % (Manual) 7 Eosinophils % Basophils % Nucleated Red Blood Cells % 0.0 Neutrophils # Absolute Lymphocytes (Manual) 1.2 Lymphocytes # Monocytes # Absolute Monocytes (Manual) 0.7 Eosinophils # Basophils # Nucleated Red Blood Cells # Platelet Estimate NORMAL Polychromasia 1+ Poikilocytosis 2+ Anisocytosis 1+ Tear Drop Cells 1+ Schistocytes 1+ Imaging Free Text/Dictation PROCEDURE: XR Chest. CLINICAL INDICATION: Respiratory failure TECHNIQUE: AP Portable chest. COMPARISON: 06/12/2017 FINDINGS: Interval placement of a nasogastric tube , coursing the left upper abdomen. The endotracheal tube is in satisfactory position. The patient is rotated. The cardiac silhouette is normal. The aortic arch is calcified. There is tubing artifact over the right lung apex. No pneumothorax is seen. Left perihilar interstitial densities are again demonstrated. There is right basilar atelectasis. The osseous structures are intact. IMPRESSION: ET and NG tubes in place. Left perihilar interstitial infiltrate. No significant change. Physician Natalie Date Time Electronically viewed and signed by Physician Natalie on 06/13/2017 06: 29 Medications Medications Current Medications Ascorbic Acid (Vitamin C) 500 mg DAILY PO Last administered on 06/13/17 08:35 ; Admin Dose 500 MG; Start 06/13/17 at 09:00 Atorvastatin Calcium (Lipitor) 20 mg QHS PO Last administered on 06/12/17 21: 43; Admin Dose 20 MG; Start 06/12/17 at 21:00 Divalproex Sodium (Depakote) 500 mg DAILY PO Last administered on 06/13/17 08: 34; Admin Dose 500 MG; Start 06/13/17 at 09:00 Ferrous Sulfate (Ferrous Sulfate (Ec)) 325 mg DAILY PO Last administered on 08:35; Admin Dose 325 MG; Start 06/13/17 at 09:00 Finasteride (Proscar) 5 mg DAILY PO Last administered on 06/13/17 08:35; Admin Dose 5 MG; Start 06/13/17 at 09:00 Gabapentin (Neurontin) 300 mg TID PO Last administered on 06/13/17 13:52; Admin Dose 300 MG; Start 06/12/17 at 13:00 Albuterol/ Ipratropium (Duoneb) 3 ml Q2H PRN NEB CONSTIPATION; Start 06/12/17 at 12:30 Multivitamins Therapeutic (Theragran) 1 tab DAILY PO Last administered on 08:35; Admin Dose 1 TAB; Start 06/13/17 at 09:00 Saccharomyces Boulardii (Florastor) 250 mg BID PO Last administered on 08:35; Admin Dose 250 MG; Start 06/12/17 at 21:00 Tamsulosin HCl (Flomax) 0.8 mg HS PO Last administered on 06/12/17 21:42; Admin Dose 0.8 MG; Start 06/12/17 at 21:00 Ondansetron HCl (Zofran Inj) 4 mg Q6H PRN IV NAUSEA AND/OR VOMITING; Start at 12:30 Acetaminophen (Tylenol Tab) 650 mg Q6H PRN PO PAIN LEVEL 1-3 OR FEVER; Start at 12:30 Acetaminophen (Tylenol Supp) 650 mg Q6H PRN [place] PAIN LEVEL 1-3 OR FEVER; Start 06/12/17 at 12:30 Acetaminophen/ Hydrocodone Bitart ([place] (5/325)) 1 tab Q6H PRN PO MODERATE PAIN LEVEL 4-6 Last administered on 06/13/17 08:36; Admin Dose 1 TAB; Start at 12:30 Acetaminophen/ Hydrocodone Bitart ([place] (5/325)) 2 tab Q6H PRN PO SEVERE PAIN LEVEL 7-10; Start 06/12/17 at 12:30 Morphine Sulfate (morphine) 2 mg Q4H PRN IV SEVERE PAIN LEVEL 7-10; Start 06/12 at 12:30 Docusate Sodium (Colace) 100 mg Q12H PRN PO CONSTIPATION; Start 06/12/17 at 12: 30 Magnesium Hydroxide (Milk Of Mag) 30 ml DAILY PRN PO CONSTIPATION; Start at 12:30 Bisacodyl (Dulcolax Supp) 10 mg DAILY PRN [place] CONSTIPATION; Start 06/12/17 at 12 :30 Pantoprazole (Protonix Iv) 40 mg DAILY@06 IV Last administered on 06/13/17 05: 15; Admin Dose 40 MG; Start 06/13/17 at 06:00 Morphine Sulfate 2 mg 2 mg Q2 PRN IV PAIN LEVEL 4-7 Last administered on 05:15; Admin Dose 2 MG; Start 06/12/17 at 14:30 Propofol 100 ml @ 2.31 mls/hr Q12H IV Last administered on 06/13/17 13:52; Admin Dose 13.86 MLS/HR; Start 06/12/17 at 16:30 Norepinephrine 16 mg/Dextrose 500 ml @ 1.87 mls/hr TITRATE IV Last administered on 06/13/17 14:11; Admin Dose 9.37 MLS/HR; Start 06/12/17 at 20:30 Amiodarone HCl 900 mg/Dextrose 500 ml @ 0 mls/hr Q0M IV Last administered on 21:54; Admin Dose 33.4 MLS/HR; Start 06/12/17 at 20:30; Stop 06/13/17 at 20:29 Vancomycin HCl 250 ml @ 166.667 mls/hr Q24H IVPB Last administered on 10:34; Admin Dose 166.667 MLS/HR; Start 06/13/17 at 10:00 Sodium Chloride (NS) 1,000 ml @ 100 mls/hr Q10H IV Last administered on t 13:51; Admin Dose 100 MLS/HR; Start 06/13/17 at 11:00; Stop 06/14/17 at 16: 59 IV Flush 10 ml 10 ml PRN PRN IV IV PROTOCOL; Start 06/13/17 at 14:00 Meropenem/Sodium Chloride (Merrem 1 Gm/50 ml (Pmx)) 50 ml @ 100 mls/hr Q12 IVPB ; Start 06/13/17 at 21:00 ELVA VIDAL MD Jun 13, 2017 15:34
--- NOTE | 2017-06-13 16:32 | RADRPT ---
PROCEDURE: US guidance for PICC line CLINICAL INDICATION: PICC line placement TECHNIQUE: Multiple real-time images were acquired of the patient's arm utilizing a high resolutio n transducer. This was performed by the PICC line nurse for venous access. COMPARISON: None FINDINGS: See impression. IMPRESSION: Ultrasound guidance for PICC line placement. There is a patent and compressible left upper extremity vein. RPTAT: AA Physician Alex Date Time Electronically viewed and signed by Bc Camilo Physician on 06/13/2017 16:32 RA/
--- NOTE | 2017-06-13 17:48 | CONS ---
Date/Time of Note Date/Time of Note DATE: 06/13/17 TIME: 17:39 Assessment/Plan Assessment/Plan Additional Assessment/Plan Assessment * Anemia Acute vs chronic R/O bleeding peptic ulcer disease vs Jessica neha vs others * Acute respiratory failure Sepsis * COPD * Dementia Plan * Monitor hemoglobin and hematovrit and transfuse per protocol * Continue present management * EGD once stable * PPI * Case discussed with Dr Escobedo * further orders will depend on clinical course Consultation Date/Type/Reason Admit Date/Time Jun 12, 2017 at 11:47 Date of Consultation: Jun 13, 2017 Type of Consultation: gastroenterology Reason for Consultation low hemoglobin Referring Provider: LETI LOPEZ Hx of Present Illness 72 year old male with history of dementia,copd atrial fibrillation presented in the emergency room because of shortness of breath.Patient became hypoxic and was intubated.He also became hypotensive necessitating pressors .He had atrial fibrillation with rvr,presently on amiodarone drip.Initial hemoglobin was 8,4 subsequently dropped to 6,4 ,He is receiving blood transfusion .No focus of bleeding,NGT is clear ,no hematochezia Constitutional: requiring O2 Past Medical History Medical History: other (Atrial fibrillation, dementia) Past Surgical History Past Surgical Hx: other Social History Alcohol Use: none Smoking Status: Never smoker Drug Use: none Exam/Review of Systems Vital Signs Vitals Vital Signs Date Time Temp Pulse Resp B/P Pulse Ox O2 Delivery O2 Flow Rate FiO2 06/13/17 16:30 101 20 116/64 99 06/13/17 16:00 30 06/13/17 16:00 99.0 Mechanical Ventilator 06/12/17 09:45 8.0 Intake and Output 06/12/17 06/12/17 06/13/17 15:00 23:00 07:00 Intake Total 27.0 ml 742.72 ml 297.97 ml Output Total 195 ml 600 ml Balance 27.0 ml 547.72 ml -302.03 ml Exam Constitutional: frail, non-verbal ENMT: intubated, other (ng tube) Neck: supple Respiratory: diminished breath sounds, normal air movement Cardiovascular: irregular rhythm Gastrointestinal: distended, soft Musculoskeletal: muscle weakness Extremities: pitting pedal edema Neurological: unresponsive Skin: rash or lesions Lymph: nl lymph nodes Results Result Diagram: 06/13/17 1350 06/13/17 8274 Results 24 hrs Laboratory Tests Test 06/12/17 19:30 06/13/17 04:54 06/13/17 07:00 06/13/17 13:50 Urine Color JAN Urine Clarity TURBID A Urine pH 8.0 Urine Specific [place] 1.017 Urine Ketones NEGATIVE Urine Nitrite NEGATIVE Urine Bilirubin NEGATIVE Urine Urobilinogen NEGATIVE Urine Leukocyte Esterase 3+ H Urine Microscopic RBC 51 H Urine Microscopic WBC > 182 H Urine Mucus FEW A Urine Hemoglobin 1+ H Urine Random Creatinine 115.51 Urine Random Sodium 65 Urine Glucose NEGATIVE Urine Total Protein 2+ H White Blood Count 14.4 H 11.4 #H Red Blood Count 2.16 #L 2.06 L Hemoglobin 6.7 #*L 6.5 *L Hematocrit 22.0 L 20.7 L Mean Corpuscular Volume 101.9 H 100.5 Mean Corpuscular Hemoglobin 31.0 31.6 Mean Corpuscular Hemoglobin Concent 30.5 L 31.4 L Red Cell Distribution Width 18.1 H 17.8 H Platelet Count 295 248 Mean Platelet Volume 12.8 H 12.8 H Neutrophils % 77.3 H Lymphocytes % 10.5 L Monocytes % 11.4 H Eosinophils % 0.2 Basophils % 0.1 Nucleated Red Blood Cells % 0.0 0.0 Neutrophils # 11.1 H Lymphocytes # 1.5 Monocytes # 1.6 H Eosinophils # 0.0 Basophils # 0.0 Nucleated Red Blood Cells # 0.0 Pathologist Review (Hematology) YES Sodium Level 143 Potassium Level 4.2 Chloride Level 115 H Carbon Dioxide Level 23 Anion Gap 9 # Blood Urea Nitrogen 39 #H Creatinine 1.53 H Glucose Level 106 Hemoglobin A1c 5.3 Calcium Level 8.5 Phosphorus Level 2.9 Magnesium Level 2.1 Total Bilirubin 0.2 Direct Bilirubin 0.00 Indirect Bilirubin 0.2 Aspartate Amino Transf (AST/SGOT) 17 Alanine Aminotransferase (ALT/SGPT) 25 Alkaline Phosphatase 62 Total Protein 6.4 Albumin 3.0 L Globulin 3.40 H Albumin/Globulin Ratio 0.88 Triglycerides Level 66 Cholesterol Level 76 L LDL Cholesterol, Calculated 37 HDL Cholesterol 26 L Cholesterol/HDL Ratio 2.9 Thyroid Stimulating Hormone (TSH) 1.840 Free Thyroxine Index 2.55 Thyroxine (T4) 5.6 Triiodothyronine (T3) Uptake 45.6 H Blood Gas Specimen Source Blood arterial Arterial Blood Date Drawn 06/13/2017 7:20:40 AM Arterial Blood pH (Temp corrected) 7.420 Arterial Blood pCO2 (Temp correct) 33.3 L Arterial Blood pO2 (Temp corrected) 123.1 H Arterial Blood HCO3 21.1 L Arterial Blood Base Excess -3.0 Arterial Blood Oxygen Saturation 98.1 Vishal Test ACCEPTAB Arterial Blood Gas Puncture Site Right Radial Arterial Blood Carboxyhemoglobin 0.3 Arterial Blood Methemoglobin 0.4 Blood Gas A-a O2 Differential 123.8 H Oxyhemoglobin Percent 97.4 Total Hemoglobin 7.6 L Blood Gas Temperature 37.0 Blood Gas Respiration Rate 18.0 Blood Gas Actual Respiration Rate 18 Blood Gas Modality VENT - AC FiO2 40.0 Blood Gas Tidal Volume 550.0 Blood Gas Low PEEP Setting 5.0 Blood Gas Notified Whom JLD Blood Gas Notified Time 06/13/2017 8:11:17 AM Segmented Neutrophils % (Manual) 82 H Lymphocytes % (Manual) 11 L Monocytes % (Manual) 7 Absolute Lymphocytes (Manual) 1.2 Absolute Monocytes (Manual) 0.7 Platelet Estimate NORMAL Polychromasia 1+ Poikilocytosis 2+ Anisocytosis 1+ Tear Drop Cells 1+ Schistocytes 1+ Medications Medications Current Medications Ascorbic Acid (Vitamin C) 500 mg DAILY PO Last administered on 06/13/17 08:35 ; Admin Dose 500 MG; Start 06/13/17 at 09:00 Atorvastatin Calcium (Lipitor) 20 mg QHS PO Last administered on 06/12/17 21: 43; Admin Dose 20 MG; Start 06/12/17 at 21:00 Divalproex Sodium (Depakote) 500 mg DAILY PO Last administered on 06/13/17 08: 34; Admin Dose 500 MG; Start 06/13/17 at 09:00 Ferrous Sulfate (Ferrous Sulfate (Ec)) 325 mg DAILY PO Last administered on 08:35; Admin Dose 325 MG; Start 06/13/17 at 09:00 Finasteride (Proscar) 5 mg DAILY PO Last administered on 06/13/17 08:35; Admin Dose 5 MG; Start 06/13/17 at 09:00 Gabapentin (Neurontin) 300 mg TID PO Last administered on 06/13/17 13:52; Admin Dose 300 MG; Start 06/12/17 at 13:00 Albuterol/ Ipratropium (Duoneb) 3 ml Q2H PRN NEB CONSTIPATION; Start 06/12/17 at 12:30 Multivitamins Therapeutic (Theragran) 1 tab DAILY PO Last administered on 08:35; Admin Dose 1 TAB; Start 06/13/17 at 09:00 Saccharomyces Boulardii (Florastor) 250 mg BID PO Last administered on 08:35; Admin Dose 250 MG; Start 06/12/17 at 21:00 Tamsulosin HCl (Flomax) 0.8 mg HS PO Last administered on 06/12/17 21:42; Admin Dose 0.8 MG; Start 06/12/17 at 21:00 Ondansetron HCl (Zofran Inj) 4 mg Q6H PRN IV NAUSEA AND/OR VOMITING; Start at 12:30 Acetaminophen (Tylenol Tab) 650 mg Q6H PRN PO PAIN LEVEL 1-3 OR FEVER; Start at 12:30 Acetaminophen (Tylenol Supp) 650 mg Q6H PRN [place] PAIN LEVEL 1-3 OR FEVER; Start 06/12/17 at 12:30 Acetaminophen/ Hydrocodone Bitart ([place] (5/325)) 1 tab Q6H PRN PO MODERATE PAIN LEVEL 4-6 Last administered on 06/13/17 08:36; Admin Dose 1 TAB; Start at 12:30 Acetaminophen/ Hydrocodone Bitart ([place] (5/325)) 2 tab Q6H PRN PO SEVERE PAIN LEVEL 7-10; Start 06/12/17 at 12:30 Morphine Sulfate (morphine) 2 mg Q4H PRN IV SEVERE PAIN LEVEL 7-10; Start 06/12 at 12:30 Docusate Sodium (Colace) 100 mg Q12H PRN PO CONSTIPATION; Start 06/12/17 at 12: 30 Magnesium Hydroxide (Milk Of Mag) 30 ml DAILY PRN PO CONSTIPATION; Start at 12:30 Bisacodyl (Dulcolax Supp) 10 mg DAILY PRN OR CONSTIPATION; Start 06/12/17 at 12 :30 Morphine Sulfate 2 mg 2 mg Q2 PRN IV PAIN LEVEL 4-7 Last administered on 05:15; Admin Dose 2 MG; Start 06/12/17 at 14:30 Propofol 100 ml @ 2.31 mls/hr Q12H IV Last administered on 06/13/17 13:52; Admin Dose 13.86 MLS/HR; Start 06/12/17 at 16:30 Norepinephrine 16 mg/Dextrose 500 ml @ 1.87 mls/hr TITRATE IV Last administered on 06/13/17 14:11; Admin Dose 9.37 MLS/HR; Start 06/12/17 at 20:30 Amiodarone HCl 900 mg/Dextrose 500 ml @ 0 mls/hr Q0M IV Last administered on 21:54; Admin Dose 33.4 MLS/HR; Start 06/12/17 at 20:30; Stop 06/13/17 at 20:29 Vancomycin HCl 250 ml @ 166.667 mls/hr Q24H IVPB Last administered on 10:34; Admin Dose 166.667 MLS/HR; Start 06/13/17 at 10:00 Sodium Chloride (NS) 1,000 ml @ 100 mls/hr Q10H IV Last administered on 13:51; Admin Dose 100 MLS/HR; Start 06/13/17 at 11:00; Stop 06/14/17 at 16: 59 IV Flush 10 ml 10 ml PRN PRN IV IV PROTOCOL; Start 06/13/17 at 14:00 Meropenem/Sodium Chloride (Merrem 1 Gm/50 ml (Pmx)) 50 ml @ 100 mls/hr Q12 IVPB ; Start 06/13/17 at 21:00 Famotidine (Pepcid Iv) 20 mg Q12 IV ; Start 06/14/17 at 09:00 MIKAL MOLINA NP Jun 13, 2017 17:48
[2017-06-13] MEDS: PANTOPRAZOLE 40 MG INJ IV SCH (18:17)
[2017-06-13] MEDS: TAMSULOSIN (SR) 0.4 MG CAP PO SCH (20:42)
[2017-06-13] MEDS: ATORVASTATIN 20 MG TAB PO SCH (20:42)
[2017-06-13] MEDS: MEROPENEM 1 GM/50ML(PMX) 50 ML IVPB SCH (20:49)
--- NOTE | 2017-06-13 22:01 | CONS ---
DATE OF ADMISSION: 06/12/2017 DATE OF CONSULTATION: 06/13/2017 SUBJECTIVE: Patient still on respirator and sedated. The patient had urethral stricture that was dilated yesterday and had an indwelling Lindsey catheter put in and the urine was very cloudy and most likely infected. OBJECTIVE: His temperature today is 99, last night he had 100.2, the pulse is 93, respirations 18, blood pressure 100/60. ABDOMEN: Soft. He does have the indwelling Lindsey catheter that is draining clear urine. LABORATORY: His CBC shows a white count of 11.4, the hemoglobin is 6.5, hematocrit 20, platelet count is 248,000. BUN is 39, creatinine 1.53, sodium 143, potassium 4.2, chloride 115, CO2 23. Urine culture is in process. The patient was supposed to get blood transfusions. IMPRESSION: Urinary tract infection. The culture is still preliminary and not final, and the patient is already on meropenem and vancomycin. Plan to keep the Lindsey catheter in and continue present treatment. Dictated By: Tarun Solis MD /walker/sundar /Document#: [id number]
[2017-06-14] VITALS (75 sets, daily range): BP systolic 88–125; BP diastolic 53–85; PULSE 79–116; RESP 17–25
[2017-06-14] MEDS: SOD CHLORIDE 0.9% 1,000 ML IV SCH (03:28)
[2017-06-14] MEDS: PROPOFOL 100 ML IV SCH ×5 (04:16→18:57)
[2017-06-14 05:13] LABS: ABNORMAL IP MESSAGE 1; BASOPHILS % 0.1 % (0.0-2.0); EOSINOPHILS # 0.1 10^3/ul (0.0-0.5); EOSINOPHILS % 0.9 % (0.0-7.0); HEMATOCRIT 23.9 % (42.0-52.0); HEMOGLOBIN 7.5 g/dl (14.0-18.0); LYMPHOCYTES # 1.4 10^3/ul (0.8-2.9); LYMPHOCYTES % 13.7 % (15.0-51.0); MEAN CORPUSCULAR HEMOGLOBIN 30.6 pg (29.0-33.0); MEAN CORPUSCULAR HGB CONC 31.4 g/dl (32.0-37.0); MEAN CORPUSCULAR VOLUME 97.6 fl (82.0-101.0); MEAN PLATELET VOLUME 13.3 fl (7.4-10.4); MONOCYTES % 10.3 % (0.0-11.0); NEUTROPHIL # 7.4 10^3/ul (1.6-7.5); NEUTROPHILS % 74.7 % (39.0-77.0); PLATELET COUNT 262 10^3/UL (140-415); POSITIVE DIFF @See below; RED BLOOD COUNT 2.45 10^6/ul (4.70-6.10); RED CELL DISTRIBUTION WIDTH 19.2 % (11.5-14.5); WHITE BLOOD COUNT 9.9 10^3/ul (4.8-10.8)
[2017-06-14 05:41] LABS: CALCIUM 8.1 mg/dl (8.4-10.2); CREATININE 1.16 mg/dl (0.61-1.24); MAGNESIUM 2.1 mg/dl (1.7-2.5); PHOSPHORUS 2.7 mg/dl (2.5-4.9); POTASSIUM 3.5 mmol/L (3.5-5.1)
[2017-06-14] MEDS: PANTOPRAZOLE 40 MG INJ IV SCH ×2 (06:36→17:06)
[2017-06-14 08:19] LABS: AADO2 Arterial 63.9 mmHg (7.0-24.0); Allen Test ACCEPTAB; Arterial Base Excess -3.4 mmol/L (-3.0-3); Arterial COHb 0.3 % (0.0-3.0); Arterial Fraction of Oxyhgb 97.2 % (93.0-99.0); Arterial HCO3 20.1 mmol/L (22.0-26.0); Arterial MetHb 0.4 % (0.0-1.5); Arterial Total Hemglobin 7.9 g/dl (12.0-18.0); Blood Gas Low PEEP Setting 0 cmH2O; MODE VENT - AC
[2017-06-14] MEDS: FINASTERIDE 5 MG TAB PO SCH (08:20)
[2017-06-14] MEDS: GABAPENTIN 300 MG CAP PO SCH ×3 (08:20→21:33)
[2017-06-14] MEDS: MULTIVITAMINS THERAPEUTIC TAB PO SCH (08:20)
[2017-06-14] MEDS: SACCHAROMYCES BOULARDII 250 MG CAP PO SCH ×2 (08:29→21:32)
[2017-06-14] MEDS: ASCORBIC ACID 500 MG TAB PO SCH (08:29)
[2017-06-14] MEDS: MEROPENEM 1 GM/50ML(PMX) 50 ML IVPB SCH ×2 (08:30→21:32)
--- NOTE | 2017-06-14 08:34 | RADRPT ---
PROCEDURE: XR Chest. CLINICAL INDICATION: Shortness of breath. TECHNIQUE: Single frontal view. COMPARISON: 06/13/2017. FINDINGS: The endotracheal tube, nasogastric tube, and left arm PICC line remain in satisfactory mild left per ihilar interstitial disease is unchanged. The lungs are otherwise clear. The heart size is normal. There is no pleural effusion. There is no pneumothorax. IMPRESSION: 1. No change from 06/13/2017. RPTAT: QQ .Karl Rebollar MD, MD Date Time Electronically viewed and signed by .Karl Rebollar MD, MD on 06/14/2017 08:34 .R/
[2017-06-14] MEDS ORDERED: FAMOTIDINE 20 MG INJ IV SCH (09:00)
[2017-06-14] MEDS ORDERED: LEVOFLOXACIN 750MG/D5W (PMX) 150 ML IV SCH (09:00)
--- NOTE | 2017-06-14 09:18 | PN ---
Date/Time of Note Date/Time of Note DATE: 06/14/17 TIME: 09:10 Assessment/Plan VTE Prophylaxis VTE Prophylaxis Intervention: SCD's Lines/Catheters IV Catheter Type (from [facility]): PICC Line Central line still needed: Yes Urinary Cath still in place: Yes Reason Cath still needed: urinary retention Assessment/Plan Chief Complaint/Hosp Course A/P: 72 M with: 1. Sepsis - likely secondary to aspiration pneumonia with shock as well as UTI. Off vasopressors now since last night. Patient does have extensive history of Alzheimer's as well as dysphagia. Continue antibiotics. On mechanical ventilation at this time. [employer] following. Monitor for clinical improvement. . 2. Respiratory failure secondary to #1. Patient intubated on mechanical ventilation at this time. Super[employer] following. 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 Alzheimer's disease. Continue with aspiration precautions. Also continue with skin precautions as well. 4. A. fib with RVR. Criminal Justice Lawyer consulted. presently rate controlled now, off amio drip presently. Follow-up recommendations. Continue telemetry monitoring. 5. History of COPD. Will provide with bronchodilators as needed. Super[employer] following. 6. BPH. Lindsey in place per urologist. Monitor output. 7. anemia - s/p PRBC transfusion 1 unit yesterday. Hemoglobin improved to 7.5 today. Follow-up GI recommendations. Disposition and plan:F/u GI rec's, occult test (pending), Continue ICU monitoring Critical care time spent on patient care today equals 45 minutes. Problems: Subjective 24 Hr Interval Summary Free Text/Dictation Patient taken off pressor support last night. Off amiodarone drip as well. Received 1 unit PRBC transfusion yesterday. Exam/Review of Systems Vital Signs Vitals Vital Signs Date Time Temp Pulse Resp B/P Pulse Ox O2 Delivery O2 Flow Rate FiO2 06/14/17 08:30 105 23 124/85 99 06/14/17 08:00 99.4 Mechanical Ventilator 06/14/17 07:25 30 06/12/17 09:45 8.0 Intake and Output 06/13/17 06/13/17 06/14/17 15:00 23:00 07:00 Intake Total 1512.460 ml 1214.40 ml 772.88 ml Output Total 660 ml 645 ml 690 ml Balance 852.460 ml 569.40 ml 82.88 ml Exam Constitutional: other (intubated and sedated) Head: normocephalic Respiratory: other (minimally ) Cardiovascular: irregular rhythm Gastrointestinal: non-tender, soft Musculoskeletal: nl extremities to inspection Extremities: calf tenderness, normal pulses Neurological: MINES INSPECTOR II-XII intact, nl mental status, nl speech Results Result Diagram: 06/14/17 0430 06/14/17 0430 Results 24 hrs Laboratory Tests Test 06/13/17 13:50 06/14/17 04:30 06/14/17 05:30 06/14/17 07:00 White Blood Count 11.4 #H 9.9 Red Blood Count 2.06 L 2.45 L Hemoglobin 6.5 *L 7.5 L Hematocrit 20.7 L 23.9 L Mean Corpuscular Volume 100.5 97.6 Mean Corpuscular Hemoglobin 31.6 30.6 Mean Corpuscular Hemoglobin Concent 31.4 L 31.4 L Red Cell Distribution Width 17.8 H 19.2 H Platelet Count 248 262 Mean Platelet Volume 12.8 H 13.3 H Neutrophils % 74.7 Segmented Neutrophils % (Manual) 82 H Lymphocytes % 13.7 L Lymphocytes % (Manual) 11 L Monocytes % 10.3 Monocytes % (Manual) 7 Eosinophils % 0.9 Basophils % 0.1 Nucleated Red Blood Cells % 0.0 0.0 Neutrophils # 7.4 Absolute Lymphocytes (Manual) 1.2 Lymphocytes # 1.4 Monocytes # 1.0 H Absolute Monocytes (Manual) 0.7 Eosinophils # 0.1 Basophils # 0.0 Nucleated Red Blood Cells # 0.0 Platelet Estimate NORMAL Polychromasia 1+ Poikilocytosis 2+ Anisocytosis 1+ Tear Drop Cells 1+ Schistocytes 1+ Sodium Level 144 Potassium Level 3.5 Chloride Level 116 H Carbon Dioxide Level 23 Anion Gap 9 Blood Urea Nitrogen 21 #H Creatinine 1.16 Glucose Level 95 Calcium Level 8.1 L Phosphorus Level 2.7 Magnesium Level 2.1 Lab Scanned Report BLOOD TRANSFUSION Blood Gas Specimen Source Blood arterial Arterial Blood Date Drawn 06/14/2017 7:40:11 AM Arterial Blood pH (Temp corrected) 7.447 Arterial Blood pCO2 (Temp correct) 29.8 L Arterial Blood pO2 (Temp corrected) 115.0 H Arterial Blood HCO3 20.1 L Arterial Blood Base Excess -3.4 L Arterial Blood Oxygen Saturation 97.9 Vishal Test ACCEPTAB Arterial Blood Gas Puncture Site Right Radial Arterial Blood Carboxyhemoglobin 0.3 Arterial Blood Methemoglobin 0.4 Blood Gas A-a O2 Differential 63.9 H Oxyhemoglobin Percent 97.2 Total Hemoglobin 7.9 L Blood Gas Temperature 37.0 Blood Gas Respiration Rate 18.0 Blood Gas Actual Respiration Rate 19 Blood Gas Modality VENT - AC FiO2 30.0 Blood Gas Tidal Volume 550.0 Blood Gas Low PEEP Setting 0 Blood Gas Notified Whom JLD Blood Gas Notified Time 06/14/2017 8:19:55 AM Medications Medications Current Medications Ascorbic Acid (Vitamin C) 500 mg DAILY PO Last administered on 06/14/17 08:29 ; Admin Dose 500 MG; Start 06/13/17 at 09:00 Atorvastatin Calcium (Lipitor) 20 mg QHS PO Last administered on 06/13/17 20: 42; Admin Dose 20 MG; Start 06/12/17 at 21:00 Divalproex Sodium (Depakote) 500 mg DAILY PO Last administered on 06/13/17 08: 34; Admin Dose 500 MG; Start 06/13/17 at 09:00 Ferrous Sulfate (Ferrous Sulfate (Ec)) 325 mg DAILY PO Last administered on 08:35; Admin Dose 325 MG; Start 06/13/17 at 09:00 Finasteride (Proscar) 5 mg DAILY PO Last administered on 06/14/17 08:20; Admin Dose 5 MG; Start 06/13/17 at 09:00 Gabapentin (Neurontin) 300 mg TID PO Last administered on 06/14/17 08:20; Admin Dose 300 MG; Start 06/12/17 at 13:00 Albuterol/ Ipratropium (Duoneb) 3 ml Q2H PRN NEB CONSTIPATION; Start 06/12/17 at 12:30 Multivitamins Therapeutic (Theragran) 1 tab DAILY PO Last administered on 08:20; Admin Dose 1 TAB; Start 06/13/17 at 09:00 Saccharomyces Boulardii (Florastor) 250 mg BID PO Last administered on 08:29; Admin Dose 250 MG; Start 06/12/17 at 21:00 Tamsulosin HCl (Flomax) 0.8 mg HS PO Last administered on 06/13/17 20:42; Admin Dose 0.8 MG; Start 06/12/17 at 21:00 Ondansetron HCl (Zofran Inj) 4 mg Q6H PRN IV NAUSEA AND/OR VOMITING; Start at 12:30 Acetaminophen (Tylenol Tab) 650 mg Q6H PRN PO PAIN LEVEL 1-3 OR FEVER; Start at 12:30 Acetaminophen (Tylenol Supp) 650 mg Q6H PRN [place] PAIN LEVEL 1-3 OR FEVER; Start 06/12/17 at 12:30 Acetaminophen/ Hydrocodone Bitart ([place] (5/325)) 1 tab Q6H PRN PO MODERATE PAIN LEVEL 4-6 Last administered on 06/13/17 08:36; Admin Dose 1 TAB; Start at 12:30 Acetaminophen/ Hydrocodone Bitart ([place] (5/325)) 2 tab Q6H PRN PO SEVERE PAIN LEVEL 7-10; Start 06/12/17 at 12:30 Morphine Sulfate (morphine) 2 mg Q4H PRN IV SEVERE PAIN LEVEL 7-10; Start 06/12 at 12:30 Docusate Sodium (Colace) 100 mg Q12H PRN PO CONSTIPATION; Start 06/12/17 at 12: 30 Magnesium Hydroxide (Milk Of Mag) 30 ml DAILY PRN PO CONSTIPATION; Start at 12:30 Bisacodyl (Dulcolax Supp) 10 mg DAILY PRN [place] CONSTIPATION; Start 06/12/17 at 12 :30 Morphine Sulfate 2 mg 2 mg Q2 PRN IV PAIN LEVEL 4-7 Last administered on 05:15; Admin Dose 2 MG; Start 06/12/17 at 14:30 Propofol 100 ml @ 2.31 mls/hr Q12H IV Last administered on 06/14/17 08:19; Admin Dose 18.48 MLS/HR; Start 06/12/17 at 16:30 Norepinephrine 16 mg/Dextrose 500 ml @ 1.87 mls/hr TITRATE IV Last administered on 06/13/17 14:11; Admin Dose 9.37 MLS/HR; Start 06/12/17 at 20:30 Vancomycin HCl 250 ml @ 166.667 mls/hr Q24H IVPB Last administered on 10:34; Admin Dose 166.667 MLS/HR; Start 06/13/17 at 10:00 Sodium Chloride (NS) 1,000 ml @ 100 mls/hr Q10H IV Last administered on 03:28; Admin Dose 100 MLS/HR; Start 06/13/17 at 11:00; Stop 06/14/17 at 16: 59 IV Flush 10 ml 10 ml PRN PRN IV IV PROTOCOL; Start 06/13/17 at 14:00 Meropenem/Sodium Chloride (Merrem 1 Gm/50 ml (Pmx)) 50 ml @ 100 mls/hr Q12 IVPB Last administered on 06/14/17 08:30; Admin Dose 100 MLS/HR; Start at 21:00 Pantoprazole (Protonix Iv) 40 mg BID@06,18 IV Last administered on 06/14/17 06 :36; Admin Dose 40 MG; Start 06/13/17 at 18:00 TALIB SPARROW Jun 14, 2017 09:18
[2017-06-14] MEDS ORDERED: POTASSIUM CHLORIDE 250 ML IVPB ONE ×2 (09:30)
--- NOTE | 2017-06-14 10:20 | CONS ---
Date/Time of Note Date/Time of Note DATE: 06/14/17 TIME: 10:18 Consult Date/Type/Reason Admit Date/Time Jun 12, 2017 at 11:47 Initial Consult Date 06/12/17 Type of Consultation: Pulmonary Ordering Provider: LETI LOPEZ Subjective No new events. Intubated sedated off vasopressors. Continues amiodarone. Low hemoglobin noted. No obvious overt bleeding. Objective Vital Signs Date Time Temp Pulse Resp B/P Pulse Ox O2 Delivery O2 Flow Rate FiO2 06/14/17 09:32 90 18 97 30 06/14/17 08:30 124/85 06/14/17 08:00 99.4 Mechanical Ventilator 06/12/17 09:45 8.0 Intake and Output 06/13/17 06/13/17 06/14/17 15:00 23:00 07:00 Intake Total 1512.460 ml 1214.40 ml 772.88 ml Output Total 660 ml 645 ml 690 ml Balance 852.460 ml 569.40 ml 82.88 ml Exam PHYSICAL EXAMINATION: GENERAL: On examination, elderly-appearing gentleman, orally intubated, grimaces to painful stimuli. VITAL SIGNS: HEENT: Orally intubated. Dry mucous membranes. Pupils equal and react to light. CARDIAC: S1, S2. No added sounds or murmurs. CHEST: Diminished air entry bilaterally with few rales. ABDOMEN: Soft, nontender. No guarding or rebound. EXTREMITIES: No cyanosis, clubbing, or edema. NEUROLOGICALLY: No focal deficits. Results/Medications Result Diagram: 06/14/17 0430 06/14/17 0430 Results 24 hrs Laboratory Tests Test 06/13/17 13:50 06/14/17 04:30 06/14/17 05:30 06/14/17 07:00 White Blood Count 11.4 #H 9.9 Red Blood Count 2.06 L 2.45 L Hemoglobin 6.5 *L 7.5 L Hematocrit 20.7 L 23.9 L Mean Corpuscular Volume 100.5 97.6 Mean Corpuscular Hemoglobin 31.6 30.6 Mean Corpuscular Hemoglobin Concent 31.4 L 31.4 L Red Cell Distribution Width 17.8 H 19.2 H Platelet Count 248 262 Mean Platelet Volume 12.8 H 13.3 H Neutrophils % 74.7 Segmented Neutrophils % (Manual) 82 H Lymphocytes % 13.7 L Lymphocytes % (Manual) 11 L Monocytes % 10.3 Monocytes % (Manual) 7 Eosinophils % 0.9 Basophils % 0.1 Nucleated Red Blood Cells % 0.0 0.0 Neutrophils # 7.4 Absolute Lymphocytes (Manual) 1.2 Lymphocytes # 1.4 Monocytes # 1.0 H Absolute Monocytes (Manual) 0.7 Eosinophils # 0.1 Basophils # 0.0 Nucleated Red Blood Cells # 0.0 Platelet Estimate NORMAL Polychromasia 1+ Poikilocytosis 2+ Anisocytosis 1+ Tear Drop Cells 1+ Schistocytes 1+ Sodium Level 144 Potassium Level 3.5 Chloride Level 116 H Carbon Dioxide Level 23 Anion Gap 9 Blood Urea Nitrogen 21 #H Creatinine 1.16 Glucose Level 95 Calcium Level 8.1 L Phosphorus Level 2.7 Magnesium Level 2.1 Lab Scanned Report BLOOD TRANSFUSION Blood Gas Specimen Source Blood arterial Arterial Blood Date Drawn 06/14/2017 7:40:11 AM Arterial Blood pH (Temp corrected) 7.447 Arterial Blood pCO2 (Temp correct) 29.8 L Arterial Blood pO2 (Temp corrected) 115.0 H Arterial Blood HCO3 20.1 L Arterial Blood Base Excess -3.4 L Arterial Blood Oxygen Saturation 97.9 Vishal Test ACCEPTAB Arterial Blood Gas Puncture Site Right Radial Arterial Blood Carboxyhemoglobin 0.3 Arterial Blood Methemoglobin 0.4 Blood Gas A-a O2 Differential 63.9 H Oxyhemoglobin Percent 97.2 Total Hemoglobin 7.9 L Blood Gas Temperature 37.0 Blood Gas Respiration Rate 18.0 Blood Gas Actual Respiration Rate 19 Blood Gas Modality VENT - AC FiO2 30.0 Blood Gas Tidal Volume 550.0 Blood Gas Low PEEP Setting 0 Blood Gas Notified Whom JLD Blood Gas Notified Time 06/14/2017 8:19:55 AM Medications Current Medications Ascorbic Acid (Vitamin C) 500 mg DAILY PO Last administered on 06/14/17 08:29 ; Admin Dose 500 MG; Start 06/13/17 at 09:00 Atorvastatin Calcium (Lipitor) 20 mg QHS PO Last administered on 06/13/17 20: 42; Admin Dose 20 MG; Start 06/12/17 at 21:00 Divalproex Sodium (Depakote) 500 mg DAILY PO Last administered on 06/13/17 08: 34; Admin Dose 500 MG; Start 06/13/17 at 09:00 Finasteride (Proscar) 5 mg DAILY PO Last administered on 06/14/17 08:20; Admin Dose 5 MG; Start 06/13/17 at 09:00 Gabapentin (Neurontin) 300 mg TID PO Last administered on 06/14/17 08:20; Admin Dose 300 MG; Start 06/12/17 at 13:00 Albuterol/ Ipratropium (Duoneb) 3 ml Q2H PRN NEB CONSTIPATION; Start 06/12/17 at 12:30 Multivitamins Therapeutic (Theragran) 1 tab DAILY PO Last administered on 08:20; Admin Dose 1 TAB; Start 06/13/17 at 09:00 Saccharomyces Boulardii (Florastor) 250 mg BID PO Last administered on 08:29; Admin Dose 250 MG; Start 06/12/17 at 21:00 Tamsulosin HCl (Flomax) 0.8 mg HS PO Last administered on 06/13/17 20:42; Admin Dose 0.8 MG; Start 06/12/17 at 21:00 Ondansetron HCl (Zofran Inj) 4 mg Q6H PRN IV NAUSEA AND/OR VOMITING; Start at 12:30 Acetaminophen (Tylenol Tab) 650 mg Q6H PRN PO PAIN LEVEL 1-3 OR FEVER; Start at 12:30 Acetaminophen (Tylenol Supp) 650 mg Q6H PRN [place] PAIN LEVEL 1-3 OR FEVER; Start 06/12/17 at 12:30 Acetaminophen/ Hydrocodone Bitart ([place] (5/325)) 1 tab Q6H PRN PO MODERATE PAIN LEVEL 4-6 Last administered on 06/13/17 08:36; Admin Dose 1 TAB; Start at 12:30 Acetaminophen/ Hydrocodone Bitart ([place] (5/325)) 2 tab Q6H PRN PO SEVERE PAIN LEVEL 7-10; Start 06/12/17 at 12:30 Morphine Sulfate (morphine) 2 mg Q4H PRN IV SEVERE PAIN LEVEL 7-10; Start 06/12 at 12:30 Docusate Sodium (Colace) 100 mg Q12H PRN PO CONSTIPATION; Start 06/12/17 at 12: 30 Magnesium Hydroxide (Milk Of Mag) 30 ml DAILY PRN PO CONSTIPATION; Start at 12:30 Bisacodyl (Dulcolax Supp) 10 mg DAILY PRN [place] CONSTIPATION; Start 06/12/17 at 12 :30 Morphine Sulfate 2 mg 2 mg Q2 PRN IV PAIN LEVEL 4-7 Last administered on 05:15; Admin Dose 2 MG; Start 06/12/17 at 14:30 Propofol 100 ml @ 2.31 mls/hr Q12H IV Last administered on 06/14/17 08:19; Admin Dose 18.48 MLS/HR; Start 06/12/17 at 16:30 Norepinephrine 16 mg/Dextrose 500 ml @ 1.87 mls/hr TITRATE IV Last administered on 06/13/17 14:11; Admin Dose 9.37 MLS/HR; Start 06/12/17 at 20:30 Vancomycin HCl 250 ml @ 166.667 mls/hr Q24H IVPB Last administered on 10:34; Admin Dose 166.667 MLS/HR; Start 06/13/17 at 10:00 Sodium Chloride (NS) 1,000 ml @ 100 mls/hr Q10H IV Last administered on 03:28; Admin Dose 100 MLS/HR; Start 06/13/17 at 11:00; Stop 06/14/17 at 16: 59 IV Flush 10 ml 10 ml PRN PRN IV IV PROTOCOL; Start 06/13/17 at 14:00 Meropenem/Sodium Chloride (Merrem 1 Gm/50 ml (Pmx)) 50 ml @ 100 mls/hr Q12 IVPB Last administered on 06/14/17 08:30; Admin Dose 100 MLS/HR; Start at 21:00 Pantoprazole 40 mg 40 mg BID@06,18 IV Last administered on 06/14/17 06:36; Admin Dose 40 MG; Start 06/13/17 at 18:00 Potassium Chloride (KCl 40 MEQ/250 ML NS) 250 ml @ 62.5 mls/hr ONCE ONCE IVPB ; Start 06/14/17 at 09:30; Stop 06/14/17 at 13:29 Ferrous Sulfate (Feosol Liquid Cup) 300 mg DAILY NGT ; Start 06/14/17 at 10:00 Assessment/Plan Chief Complaint/Hosp Course IMPRESSION: 1. Healthcare associate pneumonia, L infiltrate 2. Possible aspiration component. 3. Hypoxemic respiratory failure. 4. History of dementia. 5. History of atrial fibrillation. 6. Anemia ? GIB PLAN: 1. Continue mechanical ventilation. Hold off weaning until GI procedures completed. 2. Continue broad-spectrum antibiotic coverage. 3. Continue aspiration precautions. 4. Deep vein thrombosis and gastrointestinal prophylaxis. 5. Discussed code status with family again. 6. GI recommendations anticipating endoscopy and a colonoscopy. 6. Rate control per cardiology. cc40 mins Prognosis guarded. Problems: LEIGHA DE LEÓN MD, [facility] Jun 14, 2017 10:20
[2017-06-14] MEDS: VANCOMYCIN 1 GM (PMX) 250 ML IVPB SCH (10:41)
--- NOTE | 2017-06-14 12:22 | CONS ---
Date/Time of Note Date/Time of Note DATE: 06/14/17 TIME: 12:19 Assessment/Plan Assessment/Plan Additional Assessment/Plan Septic shock off IV pressor Paroxysmal atrial fibrillation with rapid ventricular rates Vent dependent respiratory failure Acute kidney injury Preserved ejection fraction Acute blood loss anemia status post blood transfusion -Patient off IV pressor, blood pressure trend improved. Start p.o. amiodarone. No anticoagulation at the current time given severe anemia status post blood transfusion. Maintain potassium above 4.0 and magnesium above 2.0, if blood pressure permits, start beta-michele in the next 1-2 days. Consultation Date/Type/Reason Admit Date/Time Jun 12, 2017 at 11:47 Initial Consult Date 06/13/17 Type of Consultation: cv Referring Provider: LETI LOPEZ 24 HR Interval Summary Free Text/Dictation Patient remains intubated and sedated, off IV pressor Exam/Review of Systems Vital Signs Vitals Vital Signs Date Time Temp Pulse Resp B/P Pulse Ox O2 Delivery O2 Flow Rate FiO2 06/14/17 12:00 98.5 98 23 123/76 100 Mechanical Ventilator 06/14/17 11:29 30 06/12/17 09:45 8.0 Intake and Output 06/13/17 06/13/17 06/14/17 15:00 23:00 07:00 Intake Total 1512.460 ml 1214.40 ml 772.88 ml Output Total 660 ml 645 ml 690 ml Balance 852.460 ml 569.40 ml 82.88 ml Exam Intubated and sedated, no apparent distress Head: normocephalic ENMT: intubated Respiratory: other (Coarse breath sounds bilaterally, no wheezing) Cardiovascular: irregular rhythm, other (S1-S2 heard) Gastrointestinal: bowel sounds, non-tender, soft Extremities: edema (Trace) Results Result Diagram: 06/14/17 0430 06/14/17 0430 Results 24 hrs Laboratory Tests Test 06/13/17 13:50 06/14/17 04:30 06/14/17 05:30 06/14/17 07:00 White Blood Count 11.4 #H 9.9 Red Blood Count 2.06 L 2.45 L Hemoglobin 6.5 *L 7.5 L Hematocrit 20.7 L 23.9 L Mean Corpuscular Volume 100.5 97.6 Mean Corpuscular Hemoglobin 31.6 30.6 Mean Corpuscular Hemoglobin Concent 31.4 L 31.4 L Red Cell Distribution Width 17.8 H 19.2 H Platelet Count 248 262 Mean Platelet Volume 12.8 H 13.3 H Neutrophils % 74.7 Segmented Neutrophils % (Manual) 82 H Lymphocytes % 13.7 L Lymphocytes % (Manual) 11 L Monocytes % 10.3 Monocytes % (Manual) 7 Eosinophils % 0.9 Basophils % 0.1 Nucleated Red Blood Cells % 0.0 0.0 Neutrophils # 7.4 Absolute Lymphocytes (Manual) 1.2 Lymphocytes # 1.4 Monocytes # 1.0 H Absolute Monocytes (Manual) 0.7 Eosinophils # 0.1 Basophils # 0.0 Nucleated Red Blood Cells # 0.0 Platelet Estimate NORMAL Polychromasia 1+ Poikilocytosis 2+ Anisocytosis 1+ Tear Drop Cells 1+ Schistocytes 1+ Sodium Level 144 Potassium Level 3.5 Chloride Level 116 H Carbon Dioxide Level 23 Anion Gap 9 Blood Urea Nitrogen 21 #H Creatinine 1.16 Glucose Level 95 Calcium Level 8.1 L Phosphorus Level 2.7 Magnesium Level 2.1 Lab Scanned Report BLOOD TRANSFUSION Blood Gas Specimen Source Blood arterial Arterial Blood Date Drawn 06/14/2017 7:40:11 AM Arterial Blood pH (Temp corrected) 7.447 Arterial Blood pCO2 (Temp correct) 29.8 L Arterial Blood pO2 (Temp corrected) 115.0 H Arterial Blood HCO3 20.1 L Arterial Blood Base Excess -3.4 L Arterial Blood Oxygen Saturation 97.9 Vishal Test ACCEPTAB Arterial Blood Gas Puncture Site Right Radial Arterial Blood Carboxyhemoglobin 0.3 Arterial Blood Methemoglobin 0.4 Blood Gas A-a O2 Differential 63.9 H Oxyhemoglobin Percent 97.2 Total Hemoglobin 7.9 L Blood Gas Temperature 37.0 Blood Gas Respiration Rate 18.0 Blood Gas Actual Respiration Rate 19 Blood Gas Modality VENT - AC FiO2 30.0 Blood Gas Tidal Volume 550.0 Blood Gas Low PEEP Setting 0 Blood Gas Notified Whom JLD Blood Gas Notified Time 06/14/2017 8:19:55 AM Medications Medications Current Medications Ascorbic Acid (Vitamin C) 500 mg DAILY PO Last administered on 06/14/17 08:29 ; Admin Dose 500 MG; Start 06/13/17 at 09:00 Atorvastatin Calcium (Lipitor) 20 mg QHS PO Last administered on 06/13/17 20: 42; Admin Dose 20 MG; Start 06/12/17 at 21:00 Divalproex Sodium (Depakote) 500 mg DAILY PO Last administered on 06/13/17 08: 34; Admin Dose 500 MG; Start 06/13/17 at 09:00 Finasteride (Proscar) 5 mg DAILY PO Last administered on 06/14/17 08:20; Admin Dose 5 MG; Start 06/13/17 at 09:00 Gabapentin (Neurontin) 300 mg TID PO Last administered on 06/14/17 08:20; Admin Dose 300 MG; Start 06/12/17 at 13:00 Albuterol/ Ipratropium (Duoneb) 3 ml Q2H PRN NEB CONSTIPATION; Start 06/12/17 at 12:30 Multivitamins Therapeutic (Theragran) 1 tab DAILY PO Last administered on 08:20; Admin Dose 1 TAB; Start 06/13/17 at 09:00 Saccharomyces Boulardii (Florastor) 250 mg BID PO Last administered on 08:29; Admin Dose 250 MG; Start 06/12/17 at 21:00 Tamsulosin HCl (Flomax) 0.8 mg HS PO Last administered on 06/13/17 20:42; Admin Dose 0.8 MG; Start 06/12/17 at 21:00 Ondansetron HCl (Zofran Inj) 4 mg Q6H PRN IV NAUSEA AND/OR VOMITING; Start at 12:30 Acetaminophen (Tylenol Tab) 650 mg Q6H PRN PO PAIN LEVEL 1-3 OR FEVER; Start at 12:30 Acetaminophen (Tylenol Supp) 650 mg Q6H PRN [place] PAIN LEVEL 1-3 OR FEVER; Start 06/12/17 at 12:30 Acetaminophen/ Hydrocodone Bitart ([place] (5/325)) 1 tab Q6H PRN PO MODERATE PAIN LEVEL 4-6 Last administered on 06/13/17 08:36; Admin Dose 1 TAB; Start at 12:30 Acetaminophen/ Hydrocodone Bitart ([place] (5/325)) 2 tab Q6H PRN PO SEVERE PAIN LEVEL 7-10; Start 06/12/17 at 12:30 Morphine Sulfate (morphine) 2 mg Q4H PRN IV SEVERE PAIN LEVEL 7-10; Start 06/12 at 12:30 Docusate Sodium (Colace) 100 mg Q12H PRN PO CONSTIPATION; Start 06/12/17 at 12: 30 Magnesium Hydroxide (Milk Of Mag) 30 ml DAILY PRN PO CONSTIPATION; Start at 12:30 Bisacodyl (Dulcolax Supp) 10 mg DAILY PRN [place] CONSTIPATION; Start 06/12/17 at 12 :30 Morphine Sulfate 2 mg 2 mg Q2 PRN IV PAIN LEVEL 4-7 Last administered on 05:15; Admin Dose 2 MG; Start 06/12/17 at 14:30 Propofol 100 ml @ 2.31 mls/hr Q12H IV Last administered on 06/14/17 08:19; Admin Dose 18.48 MLS/HR; Start 06/12/17 at 16:30 Norepinephrine 16 mg/Dextrose 500 ml @ 1.87 mls/hr TITRATE IV Last administered on 06/13/17 14:11; Admin Dose 9.37 MLS/HR; Start 06/12/17 at 20:30 Vancomycin HCl 250 ml @ 166.667 mls/hr Q24H IVPB Last administered on 10:41; Admin Dose 166.667 MLS/HR; Start 06/13/17 at 10:00 Sodium Chloride (NS) 1,000 ml @ 100 mls/hr Q10H IV Last administered on 03:28; Admin Dose 100 MLS/HR; Start 06/13/17 at 11:00; Stop 06/14/17 at 16: 59 IV Flush 10 ml 10 ml PRN PRN IV IV PROTOCOL; Start 06/13/17 at 14:00 Meropenem/Sodium Chloride (Merrem 1 Gm/50 ml (Pmx)) 50 ml @ 100 mls/hr Q12 IVPB Last administered on 06/14/17 08:30; Admin Dose 100 MLS/HR; Start at 21:00 Pantoprazole 40 mg 40 mg BID@06,18 IV Last administered on 06/14/17 06:36; Admin Dose 40 MG; Start 06/13/17 at 18:00 Potassium Chloride (KCl 40 MEQ/250 ML NS) 250 ml @ 62.5 mls/hr ONCE ONCE IVPB Last administered on 06/14/17t 10:42; Admin Dose 62.5 MLS/HR; Start 06/14/17 at 09:30; Stop 06/14/17 at 13:29 Ferrous Sulfate (Feosol Liquid Cup) 300 mg DAILY NGT ; Start 06/14/17 at 10:00 Rich Rader DO Jun 14, 2017 12:22
[2017-06-14] MEDS: FERROUS SULFATE 60 MG/ML 5ML CUP NGT SCH (13:15)
[2017-06-14] MEDS: AMIODARONE 200 MG TAB PO SCH ×2 (13:15→21:33)
--- NOTE | 2017-06-14 14:28 | CONS ---
Date/Time of Note Date/Time of Note DATE: 06/14/17 TIME: 14:27 Assessment/Plan Assessment/Plan Additional Assessment/Plan 72 yo male with 1) Severe Sepsis 2) Pna, Possible aspiration 3) Resp Failure, vent 4) DEEP in the setting of above, Urinary retention. 5) Likely BPH Appreciate Urology consultation S/p Lindsey, with relief of obstruction Renal function improved, non oliguric Cont IVFs Keep MAPs>65mmHg AVoid Nephrotoxic Rx, avoid hypotension. Renal dose to eGFR<30 F/u UA, Urine Cx Will cont to closely follow along with you. Consultation Date/Type/Reason Admit Date/Time Jun 12, 2017 at 11:47 Initial Consult Date 06/12/17 Type of Consultation: Renal Referring Provider: LETI LOPEZ 24 HR Interval Summary Subjective hx not possible: pt critical status Constitutional: requiring O2 Exam/Review of Systems Vital Signs Vitals Vital Signs Date Time Temp Pulse Resp B/P Pulse Ox O2 Delivery O2 Flow Rate FiO2 06/14/17 13:30 81 20 100 30 06/14/17 12:00 98.5 123/76 Mechanical Ventilator 06/12/17 09:45 8.0 Intake and Output 06/13/17 06/13/17 06/14/17 15:00 23:00 07:00 Intake Total 1512.460 ml 1214.40 ml 772.88 ml Output Total 660 ml 645 ml 690 ml Balance 852.460 ml 569.40 ml 82.88 ml Exam Constitutional: alert ENMT: intubated, mucosa pink and moist Neck: No jvd Respiratory: crackles/rales, No diminished breath sounds, No labored breathing Cardiovascular: edema, regular rate and rhythm Gastrointestinal: soft Neurological: other (sedated) Skin: No diaphoresis Results Result Diagram: 06/14/17 0430 06/14/17 0430 Results 24 hrs Laboratory Tests Test 06/14/17 04:30 06/14/17 05:30 06/14/17 07:00 White Blood Count 9.9 Red Blood Count 2.45 L Hemoglobin 7.5 L Hematocrit 23.9 L Mean Corpuscular Volume 97.6 Mean Corpuscular Hemoglobin 30.6 Mean Corpuscular Hemoglobin Concent 31.4 L Red Cell Distribution Width 19.2 H Platelet Count 262 Mean Platelet Volume 13.3 H Neutrophils % 74.7 Lymphocytes % 13.7 L Monocytes % 10.3 Eosinophils % 0.9 Basophils % 0.1 Nucleated Red Blood Cells % 0.0 Neutrophils # 7.4 Lymphocytes # 1.4 Monocytes # 1.0 H Eosinophils # 0.1 Basophils # 0.0 Nucleated Red Blood Cells # 0.0 Sodium Level 144 Potassium Level 3.5 Chloride Level 116 H Carbon Dioxide Level 23 Anion Gap 9 Blood Urea Nitrogen 21 #H Creatinine 1.16 Glucose Level 95 Calcium Level 8.1 L Phosphorus Level 2.7 Magnesium Level 2.1 Lab Scanned Report BLOOD TRANSFUSION Blood Gas Specimen Source Blood arterial Arterial Blood Date Drawn 06/14/2017 7:40:11 AM Arterial Blood pH (Temp corrected) 7.447 Arterial Blood pCO2 (Temp correct) 29.8 L Arterial Blood pO2 (Temp corrected) 115.0 H Arterial Blood HCO3 20.1 L Arterial Blood Base Excess -3.4 L Arterial Blood Oxygen Saturation 97.9 Vishal Test ACCEPTAB Arterial Blood Gas Puncture Site Right Radial Arterial Blood Carboxyhemoglobin 0.3 Arterial Blood Methemoglobin 0.4 Blood Gas A-a O2 Differential 63.9 H Oxyhemoglobin Percent 97.2 Total Hemoglobin 7.9 L Blood Gas Temperature 37.0 Blood Gas Respiration Rate 18.0 Blood Gas Actual Respiration Rate 19 Blood Gas Modality VENT - AC FiO2 30.0 Blood Gas Tidal Volume 550.0 Blood Gas Low PEEP Setting 0 Blood Gas Notified Whom JLD Blood Gas Notified Time 06/14/2017 8:19:55 AM Medications Medications Current Medications Ascorbic Acid (Vitamin C) 500 mg DAILY PO Last administered on 06/14/17 08:29 ; Admin Dose 500 MG; Start 06/13/17 at 09:00 Atorvastatin Calcium (Lipitor) 20 mg QHS PO Last administered on 06/13/17 20: 42; Admin Dose 20 MG; Start 06/12/17 at 21:00 Divalproex Sodium (Depakote) 500 mg DAILY PO Last administered on 06/13/17 08: 34; Admin Dose 500 MG; Start 06/13/17 at 09:00 Finasteride (Proscar) 5 mg DAILY PO Last administered on 06/14/17 08:20; Admin Dose 5 MG; Start 06/13/17 at 09:00 Gabapentin (Neurontin) 300 mg TID PO Last administered on 06/14/17 13:15; Admin Dose 300 MG; Start 06/12/17 at 13:00 Albuterol/ Ipratropium (Duoneb) 3 ml Q2H PRN NEB CONSTIPATION; Start 06/12/17 at 12:30 Multivitamins Therapeutic (Theragran) 1 tab DAILY PO Last administered on 08:20; Admin Dose 1 TAB; Start 06/13/17 at 09:00 Saccharomyces Boulardii (Florastor) 250 mg BID PO Last administered on 08:29; Admin Dose 250 MG; Start 06/12/17 at 21:00 Tamsulosin HCl (Flomax) 0.8 mg HS PO Last administered on 06/13/17 20:42; Admin Dose 0.8 MG; Start 06/12/17 at 21:00 Ondansetron HCl (Zofran Inj) 4 mg Q6H PRN IV NAUSEA AND/OR VOMITING; Start at 12:30 Acetaminophen (Tylenol Tab) 650 mg Q6H PRN PO PAIN LEVEL 1-3 OR FEVER; Start at 12:30 Acetaminophen (Tylenol Supp) 650 mg Q6H PRN [place] PAIN LEVEL 1-3 OR FEVER; Start 06/12/17 at 12:30 Acetaminophen/ Hydrocodone Bitart ([place] (5/325)) 1 tab Q6H PRN PO MODERATE PAIN LEVEL 4-6 Last administered on 06/13/17 08:36; Admin Dose 1 TAB; Start at 12:30 Acetaminophen/ Hydrocodone Bitart ([place] (5/325)) 2 tab Q6H PRN PO SEVERE PAIN LEVEL 7-10; Start 06/12/17 at 12:30 Morphine Sulfate (morphine) 2 mg Q4H PRN IV SEVERE PAIN LEVEL 7-10; Start 06/12 at 12:30 Docusate Sodium (Colace) 100 mg Q12H PRN PO CONSTIPATION; Start 06/12/17 at 12: 30 Magnesium Hydroxide (Milk Of Mag) 30 ml DAILY PRN PO CONSTIPATION; Start at 12:30 Bisacodyl (Dulcolax Supp) 10 mg DAILY PRN [place] CONSTIPATION; Start 06/12/17 at 12 :30 Morphine Sulfate 2 mg 2 mg Q2 PRN IV PAIN LEVEL 4-7 Last administered on 05:15; Admin Dose 2 MG; Start 06/12/17 at 14:30 Propofol 100 ml @ 2.31 mls/hr Q12H IV Last administered on 06/14/17 08:19; Admin Dose 18.48 MLS/HR; Start 06/12/17 at 16:30 Norepinephrine 16 mg/Dextrose 500 ml @ 1.87 mls/hr TITRATE IV Last administered on 06/13/17 14:11; Admin Dose 9.37 MLS/HR; Start 06/12/17 at 20:30 Vancomycin HCl 250 ml @ 166.667 mls/hr Q24H IVPB Last administered on 10:41; Admin Dose 166.667 MLS/HR; Start 06/13/17 at 10:00 Sodium Chloride (NS) 1,000 ml @ 100 mls/hr Q10H IV Last administered on 03:28; Admin Dose 100 MLS/HR; Start 06/13/17 at 11:00; Stop 06/14/17 at 16: 59 IV Flush 10 ml 10 ml PRN PRN IV IV PROTOCOL; Start 06/13/17 at 14:00 Meropenem/Sodium Chloride (Merrem 1 Gm/50 ml (Pmx)) 50 ml @ 100 mls/hr Q12 IVPB Last administered on 06/14/17 08:30; Admin Dose 100 MLS/HR; Start at 21:00 Pantoprazole (Protonix Iv) 40 mg BID@06,18 IV Last administered on 06/14/17 06 :36; Admin Dose 40 MG; Start 06/13/17 at 18:00 Ferrous Sulfate (Feosol Liquid Cup) 300 mg DAILY NGT Last administered on 13:15; Admin Dose 300 MG; Start 06/14/17 at 10:00 Amiodarone HCl (Cordarone) 400 mg TID PO Last administered on 06/14/17 13:15; Admin Dose 400 MG; Start 06/14/17 at 13:00 ELVA VIDAL MD Jun 14, 2017 14:27
[2017-06-14] MEDS ORDERED: VALPROIC ACID LIQUID CUP 250 MG/5 ML CUP NGT SCH (16:00)
[2017-06-14] MEDS: VALPROIC ACID LIQUID CUP 250 MG/5 ML CUP NGT SCH (17:06)
--- NOTE | 2017-06-14 17:12 | PN ---
Date/Time of Note Date/Time of Note DATE: 06/14/17 TIME: 17:06 Assessment/Plan VTE Prophylaxis VTE Prophylaxis Intervention: SCD's Lines/Catheters IV Catheter Type (from Nrs): PICC Line Central line still needed: Yes Urinary Cath still in place: Yes Reason Cath still needed: urinary retention Assessment/Plan Assessment/Plan Assessment * Anemia Acute vs chronic R/O bleeding peptic ulcer disease vs Jessica neha vs others * Acute respiratory failure Sepsis * COPD * Dementia Plan * Monitor hemoglobin and hematocrit and transfuse per protocol * Continue present management * EGD once stable * PPI * Case discussed with Dr Escobedo * further orders will depend on clinical course Subjective 24 Hr Interval Summary Free Text/Dictation * course reviewed * patient seen and examined * patient off pressors * sedated * latest hemoglobin 7.5 * no bleeding NGT Exam/Review of Systems Vital Signs Vitals Vital Signs Date Time Temp Pulse Resp B/P Pulse Ox O2 Delivery O2 Flow Rate FiO2 06/14/17 16:00 98.6 87 18 104/72 100 Mechanical Ventilator 06/14/17 15:35 30 06/12/17 09:45 8.0 Intake and Output 06/13/17 06/13/17 06/14/17 15:00 23:00 07:00 Intake Total 1512.460 ml 1214.40 ml 772.88 ml Output Total 660 ml 645 ml 690 ml Balance 852.460 ml 569.40 ml 82.88 ml Exam Constitutional: non-verbal Neck: non-tender, supple Respiratory: diminished breath sounds, normal air movement Cardiovascular: nl pulses, regular rate and rhythm Gastrointestinal: soft Musculoskeletal: nl extremities to inspection, nl gait and stance Neurological: nl speech, nl strength Results Result Diagram: 06/14/17 0430 06/14/17 0430 Results 24 hrs Laboratory Tests Test 06/14/17 04:30 06/14/17 05:30 06/14/17 07:00 White Blood Count 9.9 Red Blood Count 2.45 L Hemoglobin 7.5 L Hematocrit 23.9 L Mean Corpuscular Volume 97.6 Mean Corpuscular Hemoglobin 30.6 Mean Corpuscular Hemoglobin Concent 31.4 L Red Cell Distribution Width 19.2 H Platelet Count 262 Mean Platelet Volume 13.3 H Neutrophils % 74.7 Lymphocytes % 13.7 L Monocytes % 10.3 Eosinophils % 0.9 Basophils % 0.1 Nucleated Red Blood Cells % 0.0 Neutrophils # 7.4 Lymphocytes # 1.4 Monocytes # 1.0 H Eosinophils # 0.1 Basophils # 0.0 Nucleated Red Blood Cells # 0.0 Sodium Level 144 Potassium Level 3.5 Chloride Level 116 H Carbon Dioxide Level 23 Anion Gap 9 Blood Urea Nitrogen 21 #H Creatinine 1.16 Glucose Level 95 Calcium Level 8.1 L Phosphorus Level 2.7 Magnesium Level 2.1 Lab Scanned Report BLOOD TRANSFUSION Blood Gas Specimen Source Blood arterial Arterial Blood Date Drawn 06/14/2017 7:40:11 AM Arterial Blood pH (Temp corrected) 7.447 Arterial Blood pCO2 (Temp correct) 29.8 L Arterial Blood pO2 (Temp corrected) 115.0 H Arterial Blood HCO3 20.1 L Arterial Blood Base Excess -3.4 L Arterial Blood Oxygen Saturation 97.9 Vishal Test ACCEPTAB Arterial Blood Gas Puncture Site Right Radial Arterial Blood Carboxyhemoglobin 0.3 Arterial Blood Methemoglobin 0.4 Blood Gas A-a O2 Differential 63.9 H Oxyhemoglobin Percent 97.2 Total Hemoglobin 7.9 L Blood Gas Temperature 37.0 Blood Gas Respiration Rate 18.0 Blood Gas Actual Respiration Rate 19 Blood Gas Modality VENT - AC FiO2 30.0 Blood Gas Tidal Volume 550.0 Blood Gas Low PEEP Setting 0 Blood Gas Notified Whom JLD Blood Gas Notified Time 06/14/2017 8:19:55 AM Medications Medications Current Medications Ascorbic Acid (Vitamin C) 500 mg DAILY PO Last administered on 06/14/17 08:29 ; Admin Dose 500 MG; Start 06/13/17 at 09:00 Atorvastatin Calcium (Lipitor) 20 mg QHS PO Last administered on 06/13/17 20: 42; Admin Dose 20 MG; Start 06/12/17 at 21:00 Finasteride (Proscar) 5 mg DAILY PO Last administered on 06/14/17 08:20; Admin Dose 5 MG; Start 06/13/17 at 09:00 Gabapentin (Neurontin) 300 mg TID PO Last administered on 06/14/17 13:15; Admin Dose 300 MG; Start 06/12/17 at 13:00 Albuterol/ Ipratropium (Duoneb) 3 ml Q2H PRN NEB CONSTIPATION; Start 06/12/17 at 12:30 Multivitamins Therapeutic (Theragran) 1 tab DAILY PO Last administered on 08:20; Admin Dose 1 TAB; Start 06/13/17 at 09:00 Saccharomyces Boulardii (Florastor) 250 mg BID PO Last administered on 08:29; Admin Dose 250 MG; Start 06/12/17 at 21:00 Tamsulosin HCl (Flomax) 0.8 mg HS PO Last administered on 06/13/17 20:42; Admin Dose 0.8 MG; Start 06/12/17 at 21:00 Ondansetron HCl (Zofran Inj) 4 mg Q6H PRN IV NAUSEA AND/OR VOMITING; Start at 12:30 Acetaminophen (Tylenol Tab) 650 mg Q6H PRN PO PAIN LEVEL 1-3 OR FEVER; Start at 12:30 Acetaminophen (Tylenol Supp) 650 mg Q6H PRN [place] PAIN LEVEL 1-3 OR FEVER; Start 06/12/17 at 12:30 Acetaminophen/ Hydrocodone Bitart ([place] (5/325)) 1 tab Q6H PRN PO MODERATE PAIN LEVEL 4-6 Last administered on 06/13/17 08:36; Admin Dose 1 TAB; Start at 12:30 Acetaminophen/ Hydrocodone Bitart ([place] (5/325)) 2 tab Q6H PRN PO SEVERE PAIN LEVEL 7-10; Start 06/12/17 at 12:30 Morphine Sulfate (morphine) 2 mg Q4H PRN IV SEVERE PAIN LEVEL 7-10; Start 06/12 at 12:30 Docusate Sodium (Colace) 100 mg Q12H PRN PO CONSTIPATION; Start 06/12/17 at 12: 30 Magnesium Hydroxide (Milk Of Mag) 30 ml DAILY PRN PO CONSTIPATION; Start at 12:30 Bisacodyl (Dulcolax Supp) 10 mg DAILY PRN [place] CONSTIPATION; Start 06/12/17 at 12 :30 Morphine Sulfate 2 mg 2 mg Q2 PRN IV PAIN LEVEL 4-7 Last administered on 05:15; Admin Dose 2 MG; Start 06/12/17 at 14:30 Propofol 100 ml @ 2.31 mls/hr Q12H IV Last administered on 06/14/17 14:32; Admin Dose 18.48 MLS/HR; Start 06/12/17 at 16:30 Norepinephrine/ Dextrose (Levophed/D5W) 500 ml @ 1.87 mls/hr TITRATE IV Last administered on 06/13/17 14:11; Admin Dose 9.37 MLS/HR; Start 06/12/17 at 20:30 IV Flush 10 ml 10 ml PRN PRN IV IV PROTOCOL; Start 06/13/17 at 14:00 Meropenem/Sodium Chloride (Merrem 1 Gm/50 ml (Pmx)) 50 ml @ 100 mls/hr Q12 IVPB Last administered on 06/14/17 08:30; Admin Dose 100 MLS/HR; Start at 21:00 Pantoprazole (Protonix Iv) 40 mg BID@06,18 IV Last administered on 06/14/17 06 :36; Admin Dose 40 MG; Start 06/13/17 at 18:00 Ferrous Sulfate (Feosol Liquid Cup) 300 mg DAILY NGT Last administered on 13:15; Admin Dose 300 MG; Start 06/14/17 at 10:00 Amiodarone HCl (Cordarone) 400 mg TID PO Last administered on 06/14/17 13:15; Admin Dose 400 MG; Start 06/14/17 at 13:00 Mupirocin (Bactroban) 1 applic BID TOP ; Start 06/14/17 at 21:00 Miscellaneous Information VANCOMYCIN TROUGH LEVEL... ONCE ONCE XX ; Start 06/15 at 09:00; Stop 06/15/17 at 09:01 Vancomycin HCl/ Sodium Chloride (Vancocin/NS) 150 ml @ 75 mls/hr Q12H IVPB ; Start 06/14/17 at 22:00 Valproate Sodium (Depakene Liquid Cup) 500 mg DAILY NGT ; Start 06/14/17 at 16: 00 MIKAL MOLINA NP Jun 14, 2017 17:12
[2017-06-14] MEDS: VANCOMYCIN 750 MG in SOD CHLORIDE 0.9% 150 ML IVPB SCH (21:32)
[2017-06-14] MEDS: TAMSULOSIN (SR) 0.4 MG CAP PO SCH (21:33)
[2017-06-14] MEDS: ATORVASTATIN 20 MG TAB PO SCH (21:33)
[2017-06-14] MEDS: MUPIROCIN 2% 22 GM OINT TOP SCH (23:37)
[2017-06-15] VITALS (80 sets, daily range): BP systolic 80–124; BP diastolic 47–87; PULSE 69–115; RESP 17–27
[2017-06-15] MEDS: PROPOFOL 100 ML IV SCH ×4 (00:13→19:46)
[2017-06-15 05:27] LABS: BASOPHILS % 0.3 % (0.0-2.0); EOSINOPHILS # 0.2 10^3/ul (0.0-0.5); EOSINOPHILS % 2.9 % (0.0-7.0); HEMOGLOBIN 7.7 g/dl (14.0-18.0); LYMPHOCYTES # 1.3 10^3/ul (0.8-2.9); LYMPHOCYTES % 16.8 % (15.0-51.0); MEAN CORPUSCULAR HEMOGLOBIN 30.7 pg (29.0-33.0); MEAN CORPUSCULAR HGB CONC 32.1 g/dl (32.0-37.0); MEAN CORPUSCULAR VOLUME 95.6 fl (82.0-101.0); MONOCYTE # 0.8 10^3/ul (0.3-0.9); MONOCYTES % 11.1 % (0.0-11.0); NEUTROPHIL # 5.2 10^3/ul (1.6-7.5); NEUTROPHILS % 68.4 % (39.0-77.0); PLATELET COUNT 298 10^3/UL (140-415); RED BLOOD COUNT 2.51 10^6/ul (4.70-6.10); RED CELL DISTRIBUTION WIDTH 18.9 % (11.5-14.5); WHITE BLOOD COUNT 7.6 10^3/ul (4.8-10.8)
[2017-06-15 06:05] LABS: CALCIUM 7.9 mg/dl (8.4-10.2); CREATININE 1.01 mg/dl (0.61-1.24); POTASSIUM 3.6 mmol/L (3.5-5.1)
[2017-06-15] MEDS: PANTOPRAZOLE 40 MG INJ IV SCH ×2 (06:11→18:24)
--- NOTE | 2017-06-15 08:47 | RADRPT ---
PROCEDURE: XR Chest. CLINICAL INDICATION: Shortness of breath. TECHNIQUE: Single frontal view. COMPARISON: 06/14/2017. FINDINGS: The endotracheal tube, nasogastric tube, and left arm PICC line are in satisfactory position. Mild l eft perihilar interstitial disease is unchanged. There is left basilar atelectasis, worse than seen previously. The heart size is normal. There is calcification in the aorta consistent with atherosclerosis. There is no pleural effusion. There is no pneumothorax. IMPRESSION: 1. Worse appearance of the left lung base. 2. No other change from 06/14/2017. RPTAT: QQ .Karl Rebollar MD, MD Date Time Electronically viewed and signed by .Karl Rebollar MD, MD on 06/15/2017 08:46 .R/
[2017-06-15 09:07] LABS: AADO2 Arterial 98.5 mmHg (7.0-24.0); Allen Test ACCEPTAB; Arterial Base Excess -2.5 mmol/L (-3.0-3); Arterial COHb 0.3 % (0.0-3.0); Arterial Fraction of Oxyhgb 94.3 % (93.0-99.0); Arterial HCO3 20.8 mmol/L (22.0-26.0); Arterial MetHb 0.3 % (0.0-1.5); Arterial Total Hemglobin 9.1 g/dl (12.0-18.0); MODE VENT - AC
--- NOTE | 2017-06-15 09:08 | PN ---
DATE: 06/14/2017 SUBJECTIVE DATA: No events overnight. Patient is off pressors, lying comfortably in bed. Afebrile. VITAL SIGNS: Temperature 98.5, pulse 98, respirations 20, blood pressure 123/76, saturation 100 on vent. LABORATORY AND DIAGNOSTIC DATA: WBC 9.9, H and H 7.5 and 23.9, platelets 262,000, neutrophils 74.7. BUN 21, creatinine 1.16. MICROBIOLOGY: Blood cultures remain negative. Nares swab positive for MRSA. Sputum culture pending. Urine culture growing gram-negative rods, preliminary. DIAGNOSTICS: Chest x-ray this morning revealed no change. INDWELLINGS: Endotracheal tube. PICC line placed yesterday. Lindsey catheter and NG tube. ANTIMICROBIALS: Meropenem, vancomycin. PHYSICAL EXAMINATION: GENERAL: This is a chronically ill-appearing elderly man who is intubated in no distress. HEENT: Head atraumatic, normocephalic. Sclerae anicteric. Buccal mucosa dry. NECK: Supple. Trachea midline. CHEST: Rise symmetrical. Breath sounds diminished at the bases. HEART: S1, S2. ABDOMEN: Soft, bowel sounds present. EXTREMITIES: Without cyanosis. ASSESSMENT: 1. Septic shock. 2. Acute respiratory failure secondary to left-sided pneumonia, possibly aspiration event. 3. Urinary tract infection. 4. Methicillin-resistant Staphylococcus aureus nares colonization. 5. Alzheimer's dementia. 6. Acute on chronic anemia. 7. Acute renal failure and history of benign prostatic hypertrophy. PLAN: Patient remains stable, pending final cultures. White blood cell count tracing down. He is off pressors now. We will continue him on current antibiotics, add Bactroban to nares. Follow recommendations of consultants. Dictated By: Yue Loaiza NP /walker/sundar /Document#: [id number]
[2017-06-15] MEDS: FERROUS SULFATE 60 MG/ML 5ML CUP NGT SCH (09:48)
[2017-06-15] MEDS: FINASTERIDE 5 MG TAB PO SCH (09:48)
[2017-06-15] MEDS: VALPROIC ACID LIQUID CUP 250 MG/5 ML CUP NGT SCH (09:48)
[2017-06-15] MEDS: MULTIVITAMINS 30 ML CUP NGT SCH (09:48)
[2017-06-15] MEDS: ASCORBIC ACID 500 MG TAB PO SCH (09:49)
[2017-06-15] MEDS: SACCHAROMYCES BOULARDII 250 MG CAP PO SCH ×2 (09:49→21:08)
[2017-06-15] MEDS: GABAPENTIN 300 MG CAP PO SCH ×3 (09:49→21:09)
[2017-06-15] MEDS: MUPIROCIN 2% 22 GM OINT TOP SCH ×2 (09:50→21:08)
[2017-06-15] MEDS: AMIODARONE 200 MG TAB PO SCH ×3 (09:50→21:08)
[2017-06-15] MEDS: MEROPENEM 1 GM/50ML(PMX) 50 ML IVPB SCH ×2 (10:03→21:07)
--- NOTE | 2017-06-15 10:07 | CONS ---
Date/Time of Note Date/Time of Note DATE: 06/15/17 TIME: 10:06 Assessment/Plan Assessment/Plan Chief Complaint/Hosp Course ID PROGRESS NOTE TOTAL ABX DAY # CURRENT ABX=> Vanco IV + Merrem 24H INTERVAL SUMMARY * Low grade fevers GENERAL: VSS, NAD -> Sedated on Propofol HEENT: ETT-> secure to face and Vent NECK: Trach midline CHEST: Rise symmetrical -> Vented, course BS anterior ABDOMEN: Soft, NT EXTREMITIES: Warm, (+)SCD's SKIN: No diaphoresis, no rash ID ASSESSMENT: 72 yo M admit with: 1. Septic shock. 2. Acute respiratory failure secondary to left-sided pneumonia,possibly aspiration event. 3. Urinary tract infection. 4. Methicillin-resistant Staphylococcus aureus nares colonization. 5. Alzheimer's dementia. 6. Acute on chronic anemia. 7. Acute renal failure and history of benign prostatic hypertrophy. INVASIVES: ETT, NGT, LUEXT PICC ABX ALLERGY: PCN/Neomycin TOTAL ABX DAY # CURRENT ABX=> Vanco IV + Merrem ID PLAN 1. Continue current ABX -- await clinical improvement . Problems: Consultation Date/Type/Reason Admit Date/Time Jun 12, 2017 at 11:47 Initial Consult Date 06/13/17 Type of Consultation: ID Referring Provider: LETI LOPEZ Exam/Review of Systems Vital Signs Vitals Vital Signs Date Time Temp Pulse Resp B/P Pulse Ox O2 Delivery O2 Flow Rate FiO2 06/15/17 06:30 84 18 90/53 100 06/15/17 05:14 30 06/15/17 04:00 98.8 06/14/17 20:00 Mechanical Ventilator 06/12/17 09:45 8.0 Intake and Output 06/14/17 06/14/17 06/15/17 15:00 23:00 07:00 Intake Total 129.36 ml 297.84 ml 279.36 ml Output Total 490 ml 435 ml 325 ml Balance -360.64 ml -137.16 ml -45.64 ml Results Result Diagram: 06/15/17 0445 06/15/17 0445 Results 24 hrs Laboratory Tests Test 06/15/17 04:45 06/15/17 07:00 White Blood Count 7.6 # Red Blood Count 2.51 L Hemoglobin 7.7 L Hematocrit 24.0 L Mean Corpuscular Volume 95.6 Mean Corpuscular Hemoglobin 30.7 Mean Corpuscular Hemoglobin Concent 32.1 Red Cell Distribution Width 18.9 H Platelet Count 298 Mean Platelet Volume 13.0 H Neutrophils % 68.4 Lymphocytes % 16.8 Monocytes % 11.1 H Eosinophils % 2.9 Basophils % 0.3 Nucleated Red Blood Cells % 0.0 Neutrophils # 5.2 Lymphocytes # 1.3 Monocytes # 0.8 Eosinophils # 0.2 Basophils # 0.0 Nucleated Red Blood Cells # 0.0 Sodium Level 146 H Potassium Level 3.6 Chloride Level 117 H Carbon Dioxide Level 21 Anion Gap 12 Blood Urea Nitrogen 17 Creatinine 1.01 Glucose Level 102 Calcium Level 7.9 L Blood Gas Specimen Source Blood arterial Arterial Blood Date Drawn 06/15/2017 8:45:12 AM Arterial Blood pH (Temp corrected) 7.456 H Arterial Blood pCO2 (Temp correct) 30.2 L Arterial Blood pO2 (Temp corrected) 79.9 L Arterial Blood HCO3 20.8 L Arterial Blood Base Excess -2.5 Arterial Blood Oxygen Saturation 94.9 L Vishal Test ACCEPTAB Arterial Blood Gas Puncture Site Right Radial Arterial Blood Carboxyhemoglobin 0.3 Arterial Blood Methemoglobin 0.3 Blood Gas A-a O2 Differential 98.5 H Oxyhemoglobin Percent 94.3 Total Hemoglobin 9.1 L Blood Gas Temperature 37.0 Blood Gas Respiration Rate 18.0 Blood Gas Actual Respiration Rate 23 Blood Gas Modality VENT - AC FiO2 30.0 Blood Gas Tidal Volume 550.0 Blood Gas Notified Whom Jamila GARZA Blood Gas Notified Time 06/15/2017 9:06:55 AM Medications Medications Current Medications Ascorbic Acid (Vitamin C) 500 mg DAILY PO Last administered on 06/15/17 09:49 ; Admin Dose 500 MG; Start 06/13/17 at 09:00 Atorvastatin Calcium (Lipitor) 20 mg QHS PO Last administered on 06/14/17 21: 33; Admin Dose 20 MG; Start 06/12/17 at 21:00 Finasteride (Proscar) 5 mg DAILY PO Last administered on 06/15/17 09:48; Admin Dose 5 MG; Start 06/13/17 at 09:00 Gabapentin (Neurontin) 300 mg TID PO Last administered on 06/15/17 09:49; Admin Dose 300 MG; Start 06/12/17 at 13:00 Albuterol/ Ipratropium (Duoneb) 3 ml Q2H PRN NEB CONSTIPATION; Start 06/12/17 at 12:30 Saccharomyces Boulardii (Florastor) 250 mg BID PO Last administered on 09:49; Admin Dose 250 MG; Start 06/12/17 at 21:00 Tamsulosin HCl (Flomax) 0.8 mg HS PO Last administered on 06/14/17 21:33; Admin Dose 0.8 MG; Start 06/12/17 at 21:00 Ondansetron HCl (Zofran Inj) 4 mg Q6H PRN IV NAUSEA AND/OR VOMITING; Start at 12:30 Acetaminophen (Tylenol Tab) 650 mg Q6H PRN PO PAIN LEVEL 1-3 OR FEVER; Start at 12:30 Acetaminophen (Tylenol Supp) 650 mg Q6H PRN [place] PAIN LEVEL 1-3 OR FEVER; Start 06/12/17 at 12:30 Acetaminophen/ Hydrocodone Bitart ([place] (5/325)) 1 tab Q6H PRN PO MODERATE PAIN LEVEL 4-6 Last administered on 06/13/17 08:36; Admin Dose 1 TAB; Start at 12:30 Acetaminophen/ Hydrocodone Bitart ([place] (5/325)) 2 tab Q6H PRN PO SEVERE PAIN LEVEL 7-10; Start 06/12/17 at 12:30 Morphine Sulfate (morphine) 2 mg Q4H PRN IV SEVERE PAIN LEVEL 7-10; Start 06/12 at 12:30 Docusate Sodium (Colace) 100 mg Q12H PRN PO CONSTIPATION; Start 06/12/17 at 12: 30 Magnesium Hydroxide (Milk Of Mag) 30 ml DAILY PRN PO CONSTIPATION; Start at 12:30 Bisacodyl (Dulcolax Supp) 10 mg DAILY PRN [place] CONSTIPATION; Start 06/12/17 at 12 :30 Morphine Sulfate 2 mg 2 mg Q2 PRN IV PAIN LEVEL 4-7 Last administered on 05:15; Admin Dose 2 MG; Start 06/12/17 at 14:30 Propofol 100 ml @ 2.31 mls/hr Q12H IV Last administered on 06/15/17 06:11; Admin Dose 18.48 MLS/HR; Start 06/12/17 at 16:30 Norepinephrine/ Dextrose (Levophed/D5W) 500 ml @ 1.87 mls/hr TITRATE IV Last administered on 06/13/17 14:11; Admin Dose 9.37 MLS/HR; Start 06/12/17 at 20:30 IV Flush 10 ml 10 ml PRN PRN IV IV PROTOCOL; Start 06/13/17 at 14:00 Meropenem/Sodium Chloride (Merrem 1 Gm/50 ml (Pmx)) 50 ml @ 100 mls/hr Q12 IVPB Last administered on 06/15/17 10:03; Admin Dose 100 MLS/HR; Start at 21:00 Pantoprazole (Protonix Iv) 40 mg BID@06,18 IV Last administered on 06/15/17 06 :11; Admin Dose 40 MG; Start 06/13/17 at 18:00 Ferrous Sulfate (Feosol Liquid Cup) 300 mg DAILY NGT Last administered on 09:48; Admin Dose 300 MG; Start 06/14/17 at 10:00 Amiodarone HCl (Cordarone) 400 mg TID PO Last administered on 06/15/17 09:50; Admin Dose 400 MG; Start 06/14/17 at 13:00 Mupirocin 1 applic 1 applic BID TOP Last administered on 06/15/17 09:50; Admin Dose 1 APPLIC; Start 06/14/17 at 21:00 Vancomycin HCl/ Sodium Chloride (Vancocin/NS) 150 ml @ 75 mls/hr Q12H IVPB Last administered on 06/14/17 21:32; Admin Dose 75 MLS/HR; Start 06/14/17 at 22 :00 Valproate Sodium (Depakene Liquid Cup) 500 mg DAILY NGT Last administered on 09:48; Admin Dose 500 MG; Start 06/14/17 at 16:00 Multivitamins (Multivitamin) 30 ml DAILY NGT Last administered on 06/15/17 09: 48; Admin Dose 30 ML; Start 06/15/17 at 09:30 Miscellaneous Information (*Rx Drug Level Order Reminder*) VANCOMYCIN TROUGH AT 2100 ONCE ONCE XX ; Start 9/30/17 at 21:00; Stop 06/15/17 at 21:01 TITI BOWLING NP Jun 15, 2017 10:07
[2017-06-15] MEDS: VANCOMYCIN 750 MG in SOD CHLORIDE 0.9% 150 ML IVPB SCH (10:55)
--- NOTE | 2017-06-15 11:39 | PN ---
Date/Time of Note Date/Time of Note DATE: 06/15/17 TIME: 11:38 Assessment/Plan VTE Prophylaxis VTE Prophylaxis Intervention: SCD's Lines/Catheters IV Catheter Type (from Nrs): PICC Line Central line still needed: No Urinary Cath still in place: Yes Reason Cath still needed: urinary retention Assessment/Plan Assessment/Plan Septic shock off IV pressor Paroxysmal atrial fibrillation with rapid ventricular rates Vent dependent respiratory failure Acute kidney injury Preserved ejection fraction Acute blood loss anemia status post blood transfusion -Patient off IV pressor, blood pressure trend improved. On p.o. amiodarone. No anticoagulation at the current time given severe anemia status post blood transfusion. Maintain potassium above 4.0 and magnesium above 2.0, if blood pressure permits, start beta-michele in the next 1-2 days. Subjective 24 Hr Interval Summary Free Text/Dictation the patient with no change Exam/Review of Systems Vital Signs Vitals Vital Signs Date Time Temp Pulse Resp B/P Pulse Ox O2 Delivery O2 Flow Rate FiO2 06/15/17 11:00 99 22 110/76 100 Mechanical Ventilator 06/15/17 08:00 99.8 06/15/17 05:14 30 06/12/17 09:45 8.0 Intake and Output 06/14/17 06/14/17 06/15/17 15:00 23:00 07:00 Intake Total 129.36 ml 297.84 ml 279.36 ml Output Total 490 ml 435 ml 325 ml Balance -360.64 ml -137.16 ml -45.64 ml Results Result Diagram: 06/15/17 0445 06/15/17 0445 Results 24 hrs Laboratory Tests Test 06/15/17 04:45 06/15/17 07:00 White Blood Count 7.6 # Red Blood Count 2.51 L Hemoglobin 7.7 L Hematocrit 24.0 L Mean Corpuscular Volume 95.6 Mean Corpuscular Hemoglobin 30.7 Mean Corpuscular Hemoglobin Concent 32.1 Red Cell Distribution Width 18.9 H Platelet Count 298 Mean Platelet Volume 13.0 H Neutrophils % 68.4 Lymphocytes % 16.8 Monocytes % 11.1 H Eosinophils % 2.9 Basophils % 0.3 Nucleated Red Blood Cells % 0.0 Neutrophils # 5.2 Lymphocytes # 1.3 Monocytes # 0.8 Eosinophils # 0.2 Basophils # 0.0 Nucleated Red Blood Cells # 0.0 Sodium Level 146 H Potassium Level 3.6 Chloride Level 117 H Carbon Dioxide Level 21 Anion Gap 12 Blood Urea Nitrogen 17 Creatinine 1.01 Glucose Level 102 Calcium Level 7.9 L Blood Gas Specimen Source Blood arterial Arterial Blood Date Drawn 06/15/2017 8:45:12 AM Arterial Blood pH (Temp corrected) 7.456 H Arterial Blood pCO2 (Temp correct) 30.2 L Arterial Blood pO2 (Temp corrected) 79.9 L Arterial Blood HCO3 20.8 L Arterial Blood Base Excess -2.5 Arterial Blood Oxygen Saturation 94.9 L Vishal Test ACCEPTAB Arterial Blood Gas Puncture Site Right Radial Arterial Blood Carboxyhemoglobin 0.3 Arterial Blood Methemoglobin 0.3 Blood Gas A-a O2 Differential 98.5 H Oxyhemoglobin Percent 94.3 Total Hemoglobin 9.1 L Blood Gas Temperature 37.0 Blood Gas Respiration Rate 18.0 Blood Gas Actual Respiration Rate 23 Blood Gas Modality VENT - AC FiO2 30.0 Blood Gas Tidal Volume 550.0 Blood Gas Notified Whom Jamila GARZA Blood Gas Notified Time 06/15/2017 9:06:55 AM Medications Medications Current Medications Ascorbic Acid (Vitamin C) 500 mg DAILY PO Last administered on 06/15/17 09:49 ; Admin Dose 500 MG; Start 06/13/17 at 09:00 Atorvastatin Calcium (Lipitor) 20 mg QHS PO Last administered on 06/14/17 21: 33; Admin Dose 20 MG; Start 06/12/17 at 21:00 Finasteride (Proscar) 5 mg DAILY PO Last administered on 06/15/17 09:48; Admin Dose 5 MG; Start 06/13/17 at 09:00 Gabapentin (Neurontin) 300 mg TID PO Last administered on 06/15/17 09:49; Admin Dose 300 MG; Start 06/12/17 at 13:00 Albuterol/ Ipratropium (Duoneb) 3 ml Q2H PRN NEB CONSTIPATION; Start 06/12/17 at 12:30 Saccharomyces Boulardii (Florastor) 250 mg BID PO Last administered on 09:49; Admin Dose 250 MG; Start 06/12/17 at 21:00 Tamsulosin HCl (Flomax) 0.8 mg HS PO Last administered on 06/14/17 21:33; Admin Dose 0.8 MG; Start 06/12/17 at 21:00 Ondansetron HCl (Zofran Inj) 4 mg Q6H PRN IV NAUSEA AND/OR VOMITING; Start at 12:30 Acetaminophen (Tylenol Tab) 650 mg Q6H PRN PO PAIN LEVEL 1-3 OR FEVER; Start at 12:30 Acetaminophen (Tylenol Supp) 650 mg Q6H PRN [place] PAIN LEVEL 1-3 OR FEVER; Start 06/12/17 at 12:30 Acetaminophen/ Hydrocodone Bitart ([place] (5/325)) 1 tab Q6H PRN PO MODERATE PAIN LEVEL 4-6 Last administered on 06/13/17 08:36; Admin Dose 1 TAB; Start at 12:30 Acetaminophen/ Hydrocodone Bitart ([place] (5/325)) 2 tab Q6H PRN PO SEVERE PAIN LEVEL 7-10; Start 06/12/17 at 12:30 Morphine Sulfate (morphine) 2 mg Q4H PRN IV SEVERE PAIN LEVEL 7-10; Start 06/12 at 12:30 Docusate Sodium (Colace) 100 mg Q12H PRN PO CONSTIPATION; Start 06/12/17 at 12: 30 Magnesium Hydroxide (Milk Of Mag) 30 ml DAILY PRN PO CONSTIPATION; Start at 12:30 Bisacodyl (Dulcolax Supp) 10 mg DAILY PRN [place] CONSTIPATION; Start 06/12/17 at 12 :30 Morphine Sulfate 2 mg 2 mg Q2 PRN IV PAIN LEVEL 4-7 Last administered on 05:15; Admin Dose 2 MG; Start 06/12/17 at 14:30 Propofol 100 ml @ 2.31 mls/hr Q12H IV Last administered on 06/15/17 06:11; Admin Dose 18.48 MLS/HR; Start 06/12/17 at 16:30 Norepinephrine/ Dextrose (Levophed/D5W) 500 ml @ 1.87 mls/hr TITRATE IV Last administered on 06/13/17 14:11; Admin Dose 9.37 MLS/HR; Start 06/12/17 at 20:30 IV Flush 10 ml 10 ml PRN PRN IV IV PROTOCOL; Start 06/13/17 at 14:00 Meropenem/Sodium Chloride (Merrem 1 Gm/50 ml (Pmx)) 50 ml @ 100 mls/hr Q12 IVPB Last administered on 06/15/17 10:03; Admin Dose 100 MLS/HR; Start at 21:00 Pantoprazole (Protonix Iv) 40 mg BID@06,18 IV Last administered on 06/15/17 06 :11; Admin Dose 40 MG; Start 06/13/17 at 18:00 Ferrous Sulfate (Feosol Liquid Cup) 300 mg DAILY NGT Last administered on 09:48; Admin Dose 300 MG; Start 06/14/17 at 10:00 Amiodarone HCl (Cordarone) 400 mg TID PO Last administered on 06/15/17 09:50; Admin Dose 400 MG; Start 06/14/17 at 13:00 Mupirocin 1 applic 1 applic BID TOP Last administered on 06/15/17 09:50; Admin Dose 1 APPLIC; Start 06/14/17 at 21:00 Vancomycin HCl/ Sodium Chloride (Vancocin/NS) 150 ml @ 75 mls/hr Q12H IVPB Last administered on 06/15/17 10:55; Admin Dose 75 MLS/HR; Start 06/14/17 at 22 :00 Valproate Sodium (Depakene Liquid Cup) 500 mg DAILY NGT Last administered on 09:48; Admin Dose 500 MG; Start 06/14/17 at 16:00 Multivitamins (Multivitamin) 30 ml DAILY NGT Last administered on 06/15/17 09: 48; Admin Dose 30 ML; Start 06/15/17 at 09:30 Miscellaneous Information (*Rx Drug Level Order Reminder*) VANCOMYCIN TROUGH AT 2100 ONCE ONCE XX ; Start 06/15/17 at 21:00; Stop 06/15/17 at 21:01 ABBY ORTEGA MD Jun 15, 2017 11:39
--- NOTE | 2017-06-15 12:58 | CONS ---
Date/Time of Note Date/Time of Note DATE: 06/15/17 TIME: 12:55 Consult Date/Type/Reason Admit Date/Time Jun 12, 2017 at 11:47 Initial Consult Date 06/13/17 Type of Consultation: Pulm/CCM Ordering Provider: LETI LOPEZ Subjective On the vent. Sedated. Objective Vital Signs Date Time Temp Pulse Resp B/P Pulse Ox O2 Delivery O2 Flow Rate FiO2 06/15/17 11:05 113 24 100 30 06/15/17 11:00 110/76 Mechanical Ventilator 06/15/17 08:00 99.8 06/12/17 09:45 8.0 Intake and Output 06/14/17 06/14/17 06/15/17 15:00 23:00 07:00 Intake Total 129.36 ml 297.84 ml 279.36 ml Output Total 490 ml 435 ml 325 ml Balance -360.64 ml -137.16 ml -45.64 ml Exam HEENT: Orally intubated. Dry mucous membranes. Pupils equal and react to light. CARDIAC: S1, S2. No added sounds or murmurs. CHEST: Diminished air entry bilaterally with few rales. ABDOMEN: Soft, nontender. No guarding or rebound. EXTREMITIES: No cyanosis, clubbing, or edema. Results/Medications Result Diagram: 06/15/17 0445 06/15/17 0445 Results 24 hrs Laboratory Tests Test 06/15/17 04:45 06/15/17 07:00 White Blood Count 7.6 # Red Blood Count 2.51 L Hemoglobin 7.7 L Hematocrit 24.0 L Mean Corpuscular Volume 95.6 Mean Corpuscular Hemoglobin 30.7 Mean Corpuscular Hemoglobin Concent 32.1 Red Cell Distribution Width 18.9 H Platelet Count 298 Mean Platelet Volume 13.0 H Neutrophils % 68.4 Lymphocytes % 16.8 Monocytes % 11.1 H Eosinophils % 2.9 Basophils % 0.3 Nucleated Red Blood Cells % 0.0 Neutrophils # 5.2 Lymphocytes # 1.3 Monocytes # 0.8 Eosinophils # 0.2 Basophils # 0.0 Nucleated Red Blood Cells # 0.0 Sodium Level 146 H Potassium Level 3.6 Chloride Level 117 H Carbon Dioxide Level 21 Anion Gap 12 Blood Urea Nitrogen 17 Creatinine 1.01 Glucose Level 102 Calcium Level 7.9 L Blood Gas Specimen Source Blood arterial Arterial Blood Date Drawn 06/15/2017 8:45:12 AM Arterial Blood pH (Temp corrected) 7.456 H Arterial Blood pCO2 (Temp correct) 30.2 L Arterial Blood pO2 (Temp corrected) 79.9 L Arterial Blood HCO3 20.8 L Arterial Blood Base Excess -2.5 Arterial Blood Oxygen Saturation 94.9 L Vishal Test ACCEPTAB Arterial Blood Gas Puncture Site Right Radial Arterial Blood Carboxyhemoglobin 0.3 Arterial Blood Methemoglobin 0.3 Blood Gas A-a O2 Differential 98.5 H Oxyhemoglobin Percent 94.3 Total Hemoglobin 9.1 L Blood Gas Temperature 37.0 Blood Gas Respiration Rate 18.0 Blood Gas Actual Respiration Rate 23 Blood Gas Modality VENT - AC FiO2 30.0 Blood Gas Tidal Volume 550.0 Blood Gas Notified Whom ReginaKierra GARZA Blood Gas Notified Time 06/15/2017 9:06:55 AM Medications Current Medications Ascorbic Acid (Vitamin C) 500 mg DAILY PO Last administered on 06/15/17 09:49 ; Admin Dose 500 MG; Start 06/13/17 at 09:00 Atorvastatin Calcium (Lipitor) 20 mg QHS PO Last administered on 06/14/17 21: 33; Admin Dose 20 MG; Start 06/12/17 at 21:00 Finasteride (Proscar) 5 mg DAILY PO Last administered on 06/15/17 09:48; Admin Dose 5 MG; Start 06/13/17 at 09:00 Gabapentin (Neurontin) 300 mg TID PO Last administered on 06/15/17 09:49; Admin Dose 300 MG; Start 06/12/17 at 13:00 Albuterol/ Ipratropium (Duoneb) 3 ml Q2H PRN NEB CONSTIPATION; Start 06/12/17 at 12:30 Saccharomyces Boulardii (Florastor) 250 mg BID PO Last administered on 09:49; Admin Dose 250 MG; Start 06/12/17 at 21:00 Tamsulosin HCl (Flomax) 0.8 mg HS PO Last administered on 06/14/17 21:33; Admin Dose 0.8 MG; Start 06/12/17 at 21:00 Ondansetron HCl (Zofran Inj) 4 mg Q6H PRN IV NAUSEA AND/OR VOMITING; Start at 12:30 Acetaminophen (Tylenol Tab) 650 mg Q6H PRN PO PAIN LEVEL 1-3 OR FEVER; Start at 12:30 Acetaminophen (Tylenol Supp) 650 mg Q6H PRN [place] PAIN LEVEL 1-3 OR FEVER; Start 06/12/17 at 12:30 Acetaminophen/ Hydrocodone Bitart ([place] (5/325)) 1 tab Q6H PRN PO MODERATE PAIN LEVEL 4-6 Last administered on 06/13/17 08:36; Admin Dose 1 TAB; Start at 12:30 Acetaminophen/ Hydrocodone Bitart ([place] (5/325)) 2 tab Q6H PRN PO SEVERE PAIN LEVEL 7-10; Start 06/12/17 at 12:30 Morphine Sulfate (morphine) 2 mg Q4H PRN IV SEVERE PAIN LEVEL 7-10; Start 06/12 at 12:30 Docusate Sodium (Colace) 100 mg Q12H PRN PO CONSTIPATION; Start 06/12/17 at 12: 30 Magnesium Hydroxide (Milk Of Mag) 30 ml DAILY PRN PO CONSTIPATION; Start at 12:30 Bisacodyl (Dulcolax Supp) 10 mg DAILY PRN [place] CONSTIPATION; Start 06/12/17 at 12 :30 Morphine Sulfate 2 mg 2 mg Q2 PRN IV PAIN LEVEL 4-7 Last administered on 05:15; Admin Dose 2 MG; Start 06/12/17 at 14:30 Propofol 100 ml @ 2.31 mls/hr Q12H IV Last administered on 06/15/17 12:40; Admin Dose 13.86 MLS/HR; Start 06/12/17 at 16:30 Norepinephrine/ Dextrose (Levophed/D5W) 500 ml @ 1.87 mls/hr TITRATE IV Last administered on 06/13/17 14:11; Admin Dose 9.37 MLS/HR; Start 06/12/17 at 20:30 IV Flush 10 ml 10 ml PRN PRN IV IV PROTOCOL; Start 06/13/17 at 14:00 Meropenem/Sodium Chloride (Merrem 1 Gm/50 ml (Pmx)) 50 ml @ 100 mls/hr Q12 IVPB Last administered on 06/15/17 10:03; Admin Dose 100 MLS/HR; Start at 21:00 Pantoprazole (Protonix Iv) 40 mg BID@06,18 IV Last administered on 06/15/17 06 :11; Admin Dose 40 MG; Start 06/13/17 at 18:00 Ferrous Sulfate (Feosol Liquid Cup) 300 mg DAILY NGT Last administered on 09:48; Admin Dose 300 MG; Start 06/14/17 at 10:00 Amiodarone HCl (Cordarone) 400 mg TID PO Last administered on 06/15/17 09:50; Admin Dose 400 MG; Start 06/14/17 at 13:00 Mupirocin 1 applic 1 applic BID TOP Last administered on 06/15/17 09:50; Admin Dose 1 APPLIC; Start 06/14/17 at 21:00 Vancomycin HCl/ Sodium Chloride (Vancocin/NS) 150 ml @ 75 mls/hr Q12H IVPB Last administered on 06/15/17 10:55; Admin Dose 75 MLS/HR; Start 06/14/17 at 22 :00 Valproate Sodium (Depakene Liquid Cup) 500 mg DAILY NGT Last administered on 09:48; Admin Dose 500 MG; Start 06/14/17 at 16:00 Multivitamins (Multivitamin) 30 ml DAILY NGT Last administered on 06/15/17 09: 48; Admin Dose 30 ML; Start 06/15/17 at 09:30 Miscellaneous Information (*Rx Drug Level Order Reminder*) VANCOMYCIN TROUGH AT 2100 ONCE ONCE XX ; Start 06/15/17 at 21:00; Stop 06/15/17 at 21:01 Assessment/Plan Additional Assessment/Plan NEUROLOGICALLY: No focal deficits. Results/Medications Result Diagram: 06/14/17 0430 06/14/17 0430 Results 24 hrs IMP: 1. Respiratory Failure- 2. Multifocal Pneumonia--HCAP vs. aspiration 3. AMS 4. History of dementia. 5. History of atrial fibrillation. 6. Anemia RECS: 1. Vent--add PEEP 5 and lower Vt to 500 2. Continue broad-spectrum antibiotic coverage. 3. Continue aspiration precautions. 4. Deep vein thrombosis and gastrointestinal prophylaxis. 5. To CPAP/PS in am 40 min cc time CHARLEE HERNANDEZ MD Jun 15, 2017 12:58
--- NOTE | 2017-06-15 13:45 | PN ---
Date/Time of Note Date/Time of Note DATE: 06/15/17 TIME: 13:43 Assessment/Plan VTE Prophylaxis VTE Prophylaxis Intervention: other Lines/Catheters Urinary Cath still in place: Yes Reason Cath still needed: urinary retention Assessment/Plan Assessment/Plan 1) Severe Sepsis 2) Pna, Possible aspiration 3) Resp Failure, vent 4) DEEP in the setting of above, Urinary retention. 5) Likely BPH [id number] on vent non iliguric creat likely baseline cont plan Exam/Review of Systems Vital Signs Vitals Vital Signs Date Time Temp Pulse Resp B/P Pulse Ox O2 Delivery O2 Flow Rate FiO2 06/15/17 11:05 113 24 100 30 06/15/17 11:00 110/76 Mechanical Ventilator 06/15/17 08:00 99.8 06/12/17 09:45 8.0 Intake and Output 06/14/17 06/14/17 06/15/17 15:00 23:00 07:00 Intake Total 129.36 ml 297.84 ml 279.36 ml Output Total 490 ml 435 ml 325 ml Balance -360.64 ml -137.16 ml -45.64 ml Exam Constitutional: other Eyes: nl sclera ENMT: mucosa pink and moist, nl external ears & nose Neck: supple Respiratory: normal air movement Cardiovascular: regular rate and rhythm Gastrointestinal: soft Musculoskeletal: nl extremities to inspection Results Result Diagram: 06/15/175 06/15/17 0445 Results 24 hrs Laboratory Tests Test 06/15/17 04:45 06/15/17 07:00 White Blood Count 7.6 # Red Blood Count 2.51 L Hemoglobin 7.7 L Hematocrit 24.0 L Mean Corpuscular Volume 95.6 Mean Corpuscular Hemoglobin 30.7 Mean Corpuscular Hemoglobin Concent 32.1 Red Cell Distribution Width 18.9 H Platelet Count 298 Mean Platelet Volume 13.0 H Neutrophils % 68.4 Lymphocytes % 16.8 Monocytes % 11.1 H Eosinophils % 2.9 Basophils % 0.3 Nucleated Red Blood Cells % 0.0 Neutrophils # 5.2 Lymphocytes # 1.3 Monocytes # 0.8 Eosinophils # 0.2 Basophils # 0.0 Nucleated Red Blood Cells # 0.0 Sodium Level 146 H Potassium Level 3.6 Chloride Level 117 H Carbon Dioxide Level 21 Anion Gap 12 Blood Urea Nitrogen 17 Creatinine 1.01 Glucose Level 102 Calcium Level 7.9 L Blood Gas Specimen Source Blood arterial Arterial Blood Date Drawn 06/15/2017 8:45:12 AM Arterial Blood pH (Temp corrected) 7.456 H Arterial Blood pCO2 (Temp correct) 30.2 L Arterial Blood pO2 (Temp corrected) 79.9 L Arterial Blood HCO3 20.8 L Arterial Blood Base Excess -2.5 Arterial Blood Oxygen Saturation 94.9 L Vishal Test ACCEPTAB Arterial Blood Gas Puncture Site Right Radial Arterial Blood Carboxyhemoglobin 0.3 Arterial Blood Methemoglobin 0.3 Blood Gas A-a O2 Differential 98.5 H Oxyhemoglobin Percent 94.3 Total Hemoglobin 9.1 L Blood Gas Temperature 37.0 Blood Gas Respiration Rate 18.0 Blood Gas Actual Respiration Rate 23 Blood Gas Modality VENT - AC FiO2 30.0 Blood Gas Tidal Volume 550.0 Blood Gas Notified Whom Jamila GARZA Blood Gas Notified Time 06/15/2017 9:06:55 AM Medications Medications Current Medications Ascorbic Acid (Vitamin C) 500 mg DAILY PO Last administered on 06/15/17 09:49 ; Admin Dose 500 MG; Start 06/13/17 at 09:00 Atorvastatin Calcium (Lipitor) 20 mg QHS PO Last administered on 06/14/17 21: 33; Admin Dose 20 MG; Start 06/12/17 at 21:00 Finasteride (Proscar) 5 mg DAILY PO Last administered on 06/15/17 09:48; Admin Dose 5 MG; Start 06/13/17 at 09:00 Gabapentin (Neurontin) 300 mg TID PO Last administered on 06/15/17 13:02; Admin Dose 300 MG; Start 06/12/17 at 13:00 Albuterol/ Ipratropium (Duoneb) 3 ml Q2H PRN NEB CONSTIPATION; Start 06/12/17 at 12:30 Saccharomyces Boulardii (Florastor) 250 mg BID PO Last administered on 09:49; Admin Dose 250 MG; Start 06/12/17 at 21:00 Tamsulosin HCl (Flomax) 0.8 mg HS PO Last administered on 06/14/17 21:33; Admin Dose 0.8 MG; Start 06/12/17 at 21:00 Ondansetron HCl (Zofran Inj) 4 mg Q6H PRN IV NAUSEA AND/OR VOMITING; Start at 12:30 Acetaminophen (Tylenol Tab) 650 mg Q6H PRN PO PAIN LEVEL 1-3 OR FEVER; Start at 12:30 Acetaminophen (Tylenol Supp) 650 mg Q6H PRN [place] PAIN LEVEL 1-3 OR FEVER; Start 06/12/17 at 12:30 Acetaminophen/ Hydrocodone Bitart ([place] (5/325)) 1 tab Q6H PRN PO MODERATE PAIN LEVEL 4-6 Last administered on 06/13/17 08:36; Admin Dose 1 TAB; Start at 12:30 Acetaminophen/ Hydrocodone Bitart ([place] (5/325)) 2 tab Q6H PRN PO SEVERE PAIN LEVEL 7-10; Start 06/12/17 at 12:30 Morphine Sulfate (morphine) 2 mg Q4H PRN IV SEVERE PAIN LEVEL 7-10; Start 06/12 at 12:30 Docusate Sodium (Colace) 100 mg Q12H PRN PO CONSTIPATION; Start 06/12/17 at 12: 30 Magnesium Hydroxide (Milk Of Mag) 30 ml DAILY PRN PO CONSTIPATION; Start at 12:30 Bisacodyl (Dulcolax Supp) 10 mg DAILY PRN [place] CONSTIPATION; Start 06/12/17 at 12 :30 Morphine Sulfate 2 mg 2 mg Q2 PRN IV PAIN LEVEL 4-7 Last administered on 05:15; Admin Dose 2 MG; Start 06/12/17 at 14:30 Propofol 100 ml @ 2.31 mls/hr Q12H IV Last administered on 06/15/17 12:40; Admin Dose 13.86 MLS/HR; Start 06/12/17 at 16:30 Norepinephrine/ Dextrose (Levophed/D5W) 500 ml @ 1.87 mls/hr TITRATE IV Last administered on 06/13/17 14:11; Admin Dose 9.37 MLS/HR; Start 06/12/17 at 20:30 IV Flush 10 ml 10 ml PRN PRN IV IV PROTOCOL; Start 06/13/17 at 14:00 Meropenem/Sodium Chloride (Merrem 1 Gm/50 ml (Pmx)) 50 ml @ 100 mls/hr Q12 IVPB Last administered on 06/15/17 10:03; Admin Dose 100 MLS/HR; Start at 21:00 Pantoprazole (Protonix Iv) 40 mg BID@06,18 IV Last administered on 06/15/17 06 :11; Admin Dose 40 MG; Start 06/13/17 at 18:00 Ferrous Sulfate (Feosol Liquid Cup) 300 mg DAILY NGT Last administered on 09:48; Admin Dose 300 MG; Start 06/14/17 at 10:00 Amiodarone HCl (Cordarone) 400 mg TID PO Last administered on 06/15/17 13:02; Admin Dose 400 MG; Start 06/14/17 at 13:00 Mupirocin 1 applic 1 applic BID TOP Last administered on 06/15/17 09:50; Admin Dose 1 APPLIC; Start 06/14/17 at 21:00 Vancomycin HCl/ Sodium Chloride (Vancocin/NS) 150 ml @ 75 mls/hr Q12H IVPB Last administered on 06/15/17 10:55; Admin Dose 75 MLS/HR; Start 06/14/17 at 22 :00 Valproate Sodium (Depakene Liquid Cup) 500 mg DAILY NGT Last administered on 09:48; Admin Dose 500 MG; Start 06/14/17 at 16:00 Multivitamins (Multivitamin) 30 ml DAILY NGT Last administered on 06/15/17 09: 48; Admin Dose 30 ML; Start 06/15/17 at 09:30 Miscellaneous Information (*Rx Drug Level Order Reminder*) VANCOMYCIN TROUGH AT 2100 ONCE ONCE XX ; Start 06/15/17 at 21:00; Stop 06/15/17 at 21:01 CLAIRE WHITING MD Jun 15, 2017 13:45
[2017-06-15] MEDS: TAMSULOSIN (SR) 0.4 MG CAP PO SCH (21:08)
[2017-06-15] MEDS: ATORVASTATIN 20 MG TAB PO SCH (21:09)
--- NOTE | 2017-06-15 22:17 | PN ---
Date/Time of Note Date/Time of Note DATE: 06/15/17 TIME: 22:13 Assessment/Plan VTE Prophylaxis VTE Prophylaxis Intervention: SCD's Lines/Catheters Urinary Cath still in place: Yes Reason Cath still needed: other (indicate) (monitor I&O) Assessment/Plan Chief Complaint/Hosp Course Impression and plan 1. Sepsis likely secondary to aspiration pneumonia with shock. off of vasopressors at this time. . Patient does have extensive history of Alzheimer' s as well as dysphagia. Continue antibiotics. On mechanical ventilation at this time. Safety Technician following. Monitor for clinical improvement . 2. Respiratory failure secondary to #1. Patient intubated on mechanical ventilation at this time. Safety Technician following. Vent liberation per banker mason 3. Alzheimer's disease. Continue with aspiration precautions. Also continue with skin precautions as well. f 4. A. fib with RVR. [employer] President consulted. Follow-up recommendations. Continue telemetry monitoring. cardiovascular medications per draw string knotter 5. History of COPD. Will provide with bronchodilators as needed. Safety Technician following 6. BPH. Lindsey in place per urologist. Monitor output. v Disposition and plan: vent liberation per banker mason. continue inpatient monitoring Discussed plan of care with Dr. Tse Critical CARE time: 30 minutes Problems: Subjective 24 Hr Interval Summary Free Text/Dictation intubated and sedated Exam/Review of Systems Vital Signs Vitals Vital Signs Date Time Temp Pulse Resp B/P Pulse Ox O2 Delivery O2 Flow Rate FiO2 06/15/17 21:30 94 23 110/70 100 06/15/17 20:00 98.1 Mechanical Ventilator 06/15/17 17:25 30 06/12/17 09:45 8.0 Intake and Output 06/14/17 06/14/17 06/15/17 15:00 23:00 07:00 Intake Total 129.36 ml 297.84 ml 297.84 ml Output Total 490 ml 435 ml 450 ml Balance -360.64 ml -137.16 ml -152.16 ml Exam Constitutional: other (intubated and sedated ) Head: normocephalic Respiratory: other (minimally ) Cardiovascular: irregular rhythm Gastrointestinal: non-tender, soft Musculoskeletal: nl extremities to inspection Extremities: calf tenderness, normal pulses Neurological: intubated and sedated Results Result Diagram: 06/15/1744406/15/17444 Results 24 hrs Laboratory Tests Test 06/15/17 04:45 06/15/17 07:00 06/15/17 20:45 White Blood Count 7.6 # Red Blood Count 2.51 L Hemoglobin 7.7 L Hematocrit 24.0 L Mean Corpuscular Volume 95.6 Mean Corpuscular Hemoglobin 30.7 Mean Corpuscular Hemoglobin Concent 32.1 Red Cell Distribution Width 18.9 H Platelet Count 298 Mean Platelet Volume 13.0 H Neutrophils % 68.4 Lymphocytes % 16.8 Monocytes % 11.1 H Eosinophils % 2.9 Basophils % 0.3 Nucleated Red Blood Cells % 0.0 Neutrophils # 5.2 Lymphocytes # 1.3 Monocytes # 0.8 Eosinophils # 0.2 Basophils # 0.0 Nucleated Red Blood Cells # 0.0 Sodium Level 146 H Potassium Level 3.6 Chloride Level 117 H Carbon Dioxide Level 21 Anion Gap 12 Blood Urea Nitrogen 17 Creatinine 1.01 Glucose Level 102 Calcium Level 7.9 L Blood Gas Specimen Source Blood arterial Arterial Blood Date Drawn 06/15/2017 8:45:12 AM Arterial Blood pH (Temp corrected) 7.456 H Arterial Blood pCO2 (Temp correct) 30.2 L Arterial Blood pO2 (Temp corrected) 79.9 L Arterial Blood HCO3 20.8 L Arterial Blood Base Excess -2.5 Arterial Blood Oxygen Saturation 94.9 L Vishal Test ACCEPTAB Arterial Blood Gas Puncture Site Right Radial Arterial Blood Carboxyhemoglobin 0.3 Arterial Blood Methemoglobin 0.3 Blood Gas A-a O2 Differential 98.5 H Oxyhemoglobin Percent 94.3 Total Hemoglobin 9.1 L Blood Gas Temperature 37.0 Blood Gas Respiration Rate 18.0 Blood Gas Actual Respiration Rate 23 Blood Gas Modality VENT - AC FiO2 30.0 Blood Gas Tidal Volume 550.0 Blood Gas Notified Whom Jamila GARZA Blood Gas Notified Time 06/15/2017 9:06:55 AM Vancomycin Level Trough 10.5 Medications Medications Current Medications Ascorbic Acid (Vitamin C) 500 mg DAILY PO Last administered on 06/15/17 09:49 ; Admin Dose 500 MG; Start 06/13/17 at 09:00 Atorvastatin Calcium (Lipitor) 20 mg QHS PO Last administered on 06/15/17 21: 09; Admin Dose 20 MG; Start 06/12/17 at 21:00 Finasteride (Proscar) 5 mg DAILY PO Last administered on 06/15/17 09:48; Admin Dose 5 MG; Start 06/13/17 at 09:00 Gabapentin (Neurontin) 300 mg TID PO Last administered on 06/15/17 21:09; Admin Dose 300 MG; Start 06/12/17 at 13:00 Albuterol/ Ipratropium (Duoneb) 3 ml Q2H PRN NEB CONSTIPATION; Start 06/12/17 at 12:30 Saccharomyces Boulardii (Florastor) 250 mg BID PO Last administered on 21:08; Admin Dose 250 MG; Start 06/12/17 at 21:00 Tamsulosin HCl (Flomax) 0.8 mg HS PO Last administered on 06/15/17 21:08; Admin Dose 0.8 MG; Start 06/12/17 at 21:00 Ondansetron HCl (Zofran Inj) 4 mg Q6H PRN IV NAUSEA AND/OR VOMITING; Start at 12:30 Acetaminophen (Tylenol Tab) 650 mg Q6H PRN PO PAIN LEVEL 1-3 OR FEVER; Start at 12:30 Acetaminophen (Tylenol Supp) 650 mg Q6H PRN [place] PAIN LEVEL 1-3 OR FEVER; Start 06/12/17 at 12:30 Acetaminophen/ Hydrocodone Bitart ([place] (5/325)) 1 tab Q6H PRN PO MODERATE PAIN LEVEL 4-6 Last administered on 06/13/17 08:36; Admin Dose 1 TAB; Start at 12:30 Acetaminophen/ Hydrocodone Bitart ([place] (5/325)) 2 tab Q6H PRN PO SEVERE PAIN LEVEL 7-10; Start 06/12/17 at 12:30 Morphine Sulfate (morphine) 2 mg Q4H PRN IV SEVERE PAIN LEVEL 7-10; Start 06/12 at 12:30 Docusate Sodium (Colace) 100 mg Q12H PRN PO CONSTIPATION; Start 06/12/17 at 12: 30 Magnesium Hydroxide (Milk Of Mag) 30 ml DAILY PRN PO CONSTIPATION; Start at 12:30 Bisacodyl (Dulcolax Supp) 10 mg DAILY PRN [place] CONSTIPATION; Start 06/12/17 at 12 :30 Morphine Sulfate 2 mg 2 mg Q2 PRN IV PAIN LEVEL 4-7 Last administered on 05:15; Admin Dose 2 MG; Start 06/12/17 at 14:30 Propofol 100 ml @ 2.31 mls/hr Q12H IV Last administered on 06/15/17 19:46; Admin Dose 13.86 MLS/HR; Start 06/12/17 at 16:30 Norepinephrine/ Dextrose (Levophed/D5W) 500 ml @ 1.87 mls/hr TITRATE IV Last administered on 06/13/17 14:11; Admin Dose 9.37 MLS/HR; Start 06/12/17 at 20:30 IV Flush 10 ml 10 ml PRN PRN IV IV PROTOCOL; Start 06/13/17 at 14:00 Meropenem/Sodium Chloride (Merrem 1 Gm/50 ml (Pmx)) 50 ml @ 100 mls/hr Q12 IVPB Last administered on 06/15/17 21:07; Admin Dose 100 MLS/HR; Start at 21:00 Pantoprazole (Protonix Iv) 40 mg BID@06,18 IV Last administered on 06/15/17 18 :24; Admin Dose 40 MG; Start 06/13/17 at 18:00 Ferrous Sulfate (Feosol Liquid Cup) 300 mg DAILY NGT Last administered on 09:48; Admin Dose 300 MG; Start 06/14/17 at 10:00 Amiodarone HCl (Cordarone) 400 mg TID PO Last administered on 06/15/17 21:08; Admin Dose 400 MG; Start 06/14/17 at 13:00 Mupirocin (Bactroban) 1 applic BID TOP Last administered on 06/15/17 21:08; Admin Dose 1 APPLIC; Start 06/14/17 at 21:00 Valproate Sodium (Depakene Liquid Cup) 500 mg DAILY NGT Last administered on 09:48; Admin Dose 500 MG; Start 06/14/17 at 16:00 Multivitamins 30 ml 30 ml DAILY NGT Last administered on 06/15/17 09:48; Admin Dose 30 ML; Start 06/15/17 at 09:30 Vancomycin HCl (Vancocin) 250 ml @ 125 mls/hr Q12H IVPB ; Start 06/15/17 at 22: 00 REGIDOR,LETI Jun 15, 2017 22:17
[2017-06-15] MEDS: VANCOMYCIN 1 GM in NS 250 ML IVPB SCH (22:40)
[2017-06-16] VITALS (52 sets, daily range): BP systolic 73–132; BP diastolic 49–94; PULSE 74–137; RESP 15–27
[2017-06-16] MEDS: PROPOFOL 100 ML IV SCH (03:21)
[2017-06-16] MEDS: PANTOPRAZOLE 40 MG INJ IV SCH ×2 (05:17→17:31)
[2017-06-16 06:09] LABS: BASOPHILS % 0.3 % (0.0-2.0); EOSINOPHILS # 0.3 10^3/ul (0.0-0.5); HEMOGLOBIN 7.3 g/dl (14.0-18.0); LYMPHOCYTES # 1.4 10^3/ul (0.8-2.9); LYMPHOCYTES % 17.6 % (15.0-51.0); MEAN CORPUSCULAR HEMOGLOBIN 30.8 pg (29.0-33.0); MEAN CORPUSCULAR HGB CONC 31.7 g/dl (32.0-37.0); MEAN PLATELET VOLUME 12.8 fl (7.4-10.4); MONOCYTE # 0.6 10^3/ul (0.3-0.9); MONOCYTES % 8.2 % (0.0-11.0); NEUTROPHIL # 5.3 10^3/ul (1.6-7.5); NEUTROPHILS % 69.2 % (39.0-77.0); PLATELET COUNT 321 10^3/UL (140-415); RED BLOOD COUNT 2.37 10^6/ul (4.70-6.10); RED CELL DISTRIBUTION WIDTH 18.6 % (11.5-14.5); WHITE BLOOD COUNT 7.7 10^3/ul (4.8-10.8)
[2017-06-16 06:49] LABS: CALCIUM 7.6 mg/dl (8.4-10.2); CREATININE 0.99 mg/dl (0.61-1.24); POTASSIUM 3.6 mmol/L (3.5-5.1)
[2017-06-16] MEDS: MEROPENEM 1 GM/50ML(PMX) 50 ML IVPB SCH ×2 (08:39→20:35)
[2017-06-16] MEDS: MULTIVITAMINS 30 ML CUP NGT SCH (08:40)
[2017-06-16] MEDS: FERROUS SULFATE 60 MG/ML 5ML CUP NGT SCH (08:41)
[2017-06-16] MEDS: FINASTERIDE 5 MG TAB PO SCH (08:41)
[2017-06-16] MEDS: SACCHAROMYCES BOULARDII 250 MG CAP PO SCH ×2 (08:41→20:35)
[2017-06-16] MEDS: AMIODARONE 200 MG TAB PO SCH ×3 (08:41→20:35)
[2017-06-16] MEDS: ASCORBIC ACID 500 MG TAB PO SCH (08:41)
[2017-06-16] MEDS: GABAPENTIN 300 MG CAP PO SCH ×3 (08:41→20:34)
[2017-06-16] MEDS: VALPROIC ACID LIQUID CUP 250 MG/5 ML CUP NGT SCH (08:42)
[2017-06-16] MEDS: MUPIROCIN 2% 22 GM OINT TOP SCH ×2 (08:42→20:38)
[2017-06-16 09:35] LABS: Allen Test ACCEPTAB; Arterial Base Excess -2.6 mmol/L (-3.0-3); Arterial COHb 0.3 % (0.0-3.0); Arterial Fraction of Oxyhgb 94.4 % (93.0-99.0); Arterial HCO3 20.6 mmol/L (22.0-26.0); Arterial MetHb 0.3 % (0.0-1.5); Arterial Total Hemglobin 11.2 g/dl (12.0-18.0); Blood Gas PS 8; MODE VENT - CPAP
[2017-06-16] MEDS: VANCOMYCIN 1 GM in NS 250 ML IVPB SCH ×2 (09:40→22:09)
--- NOTE | 2017-06-16 10:04 | RADRPT ---
PROCEDURE: XR Chest. CLINICAL INDICATION: Shortness of breath. TECHNIQUE: Single frontal view. COMPARISON: 06/15/2017. FINDINGS: The endotracheal tube, nasogastric tube, and left arm PICC line remain in satisfactory position. The re is air space disease bilaterally in the mid and lower lung zones, worse than seen previously. The heart size is normal. There is calcification in the aorta consistent with atherosclerosis. There is no pleural effusion. There is no pneumothorax. IMPRESSION: 1. Worse appearance of the lungs. 2. No other change from 06/15/2017. RPTAT: QQ .Karl Rebollar MD, MD Date Time Electronically viewed and signed by .Karl Rebollar MD, on 06/16/2017 10:04 .R/
--- NOTE | 2017-06-16 12:08 | PN ---
Date/Time of Note Date/Time of Note DATE: 06/16/17 TIME: 12:07 Assessment/Plan VTE Prophylaxis VTE Prophylaxis Intervention: other Lines/Catheters Urinary Cath still in place: Yes Reason Cath still needed: urinary retention Assessment/Plan Assessment/Plan 1) Severe Sepsis 2) Pna, Possible aspiration 3) Resp Failure, vent 4) DEEP in the setting of above, Urinary retention. 5) Likely BPH [id number] on vent [id number] resolved renal failure Exam/Review of Systems Vital Signs Vitals Vital Signs Date Time Temp Pulse Resp B/P Pulse Ox O2 Delivery O2 Flow Rate FiO2 06/16/17 12:00 100.8 133 24 117/87 97 CPAP Mechanical Ventilator 06/16/17 11:30 30 06/12/17 09:45 8.0 Intake and Output 06/15/17 06/15/17 06/16/17 15:00 23:00 07:00 Intake Total 456.29 ml 174.74 ml 342.30 ml Output Total 405 ml 335 ml 240 ml Balance 51.29 ml -160.26 ml 102.30 ml Exam Eyes: nl conjunctiva Neck: non-tender, supple Respiratory: clear to auscultation, normal air movement Cardiovascular: regular rate and rhythm Gastrointestinal: soft Extremities: normal pulses Results Result Diagram: 06/16/17 0510 06/16/17 0510 Results 24 hrs Laboratory Tests Test 06/15/17 20:45 06/16/17 05:10 06/16/17 09:00 Vancomycin Level Trough 10.5 White Blood Count 7.7 Red Blood Count 2.37 L Hemoglobin 7.3 L Hematocrit 23.0 L Mean Corpuscular Volume 97.0 Mean Corpuscular Hemoglobin 30.8 Mean Corpuscular Hemoglobin Concent 31.7 L Red Cell Distribution Width 18.6 H Platelet Count 321 Mean Platelet Volume 12.8 H Neutrophils % 69.2 Lymphocytes % 17.6 Monocytes % 8.2 Eosinophils % 4.0 Basophils % 0.3 Nucleated Red Blood Cells % 0.0 Neutrophils # 5.3 Lymphocytes # 1.4 Monocytes # 0.6 Eosinophils # 0.3 Basophils # 0.0 Nucleated Red Blood Cells # 0.0 Sodium Level 147 H Potassium Level 3.6 Chloride Level 117 H Carbon Dioxide Level 25 Anion Gap 9 Blood Urea Nitrogen 17 Creatinine 0.99 Glucose Level 94 Calcium Level 7.6 L Blood Gas Specimen Source Blood arterial Arterial Blood Date Drawn 06/16/2017 9:15:11 AM Arterial Blood pH (Temp corrected) 7.448 Arterial Blood pCO2 (Temp correct) 30.4 L Arterial Blood pO2 (Temp corrected) 82.2 Arterial Blood HCO3 20.6 L Arterial Blood Base Excess -2.6 Arterial Blood Oxygen Saturation 95.0 Vishal Test ACCEPTAB Arterial Blood Gas Puncture Site Right Radial Arterial Blood Carboxyhemoglobin 0.3 Arterial Blood Methemoglobin 0.3 Blood Gas A-a O2 Differential 96.0 H Oxyhemoglobin Percent 94.4 Total Hemoglobin 11.2 L Blood Gas Temperature 37.0 Blood Gas Actual Respiration Rate 17 Blood Gas Modality VENT - CPAP FiO2 30.0 Blood Gas Tidal Volume 600.0 Blood Gas Low PEEP Setting 5.0 Blood Gas Pressure Support 8 Blood Gas Notified Whom CW Blood Gas Notified Time 06/16/2017 9:35:12 AM Medications Medications Current Medications Ascorbic Acid (Vitamin C) 500 mg DAILY PO Last administered on 06/16/17 08:41 ; Admin Dose 500 MG; Start 06/13/17 at 09:00 Atorvastatin Calcium (Lipitor) 20 mg QHS PO Last administered on 06/15/17 21: 09; Admin Dose 20 MG; Start 06/12/17 at 21:00 Finasteride (Proscar) 5 mg DAILY PO Last administered on 06/16/17 08:41; Admin Dose 5 MG; Start 06/13/17 at 09:00 Gabapentin (Neurontin) 300 mg TID PO Last administered on 06/16/17 12:00; Admin Dose 300 MG; Start 06/12/17 at 13:00 Albuterol/ Ipratropium (Duoneb) 3 ml Q2H PRN NEB CONSTIPATION; Start 06/12/17 at 12:30 Saccharomyces Boulardii (Florastor) 250 mg BID PO Last administered on 08:41; Admin Dose 250 MG; Start 06/12/17 at 21:00 Tamsulosin HCl (Flomax) 0.8 mg HS PO Last administered on 06/15/17 21:08; Admin Dose 0.8 MG; Start 06/12/17 at 21:00 Ondansetron HCl (Zofran Inj) 4 mg Q6H PRN IV NAUSEA AND/OR VOMITING; Start at 12:30 Acetaminophen (Tylenol Tab) 650 mg Q6H PRN PO PAIN LEVEL 1-3 OR FEVER; Start at 12:30 Acetaminophen (Tylenol Supp) 650 mg Q6H PRN ME PAIN LEVEL 1-3 OR FEVER; Start 06/12/17 at 12:30 Acetaminophen/ Hydrocodone Bitart ([place] (5/325)) 1 tab Q6H PRN PO MODERATE PAIN LEVEL 4-6 Last administered on 06/13/17 08:36; Admin Dose 1 TAB; Start at 12:30 Acetaminophen/ Hydrocodone Bitart ([place] (5/325)) 2 tab Q6H PRN PO SEVERE PAIN LEVEL 7-10; Start 06/12/17 at 12:30 Morphine Sulfate (morphine) 2 mg Q4H PRN IV SEVERE PAIN LEVEL 7-10; Start 06/12 at 12:30 Docusate Sodium (Colace) 100 mg Q12H PRN PO CONSTIPATION; Start 06/12/17 at 12: 30 Magnesium Hydroxide (Milk Of Mag) 30 ml DAILY PRN PO CONSTIPATION; Start at 12:30 Bisacodyl (Dulcolax Supp) 10 mg DAILY PRN [place] CONSTIPATION; Start 06/12/17 at 12 :30 Morphine Sulfate 2 mg 2 mg Q2 PRN IV PAIN LEVEL 4-7 Last administered on 05:15; Admin Dose 2 MG; Start 06/12/17 at 14:30 Propofol 100 ml @ 2.31 mls/hr Q12H IV Last administered on 06/16/17 03:21; Admin Dose 13.86 MLS/HR; Start 06/12/17 at 16:30 Norepinephrine/ Dextrose (Levophed/D5W) 500 ml @ 1.87 mls/hr TITRATE IV Last administered on 06/13/17 14:11; Admin Dose 9.37 MLS/HR; Start 06/12/17 at 20:30 IV Flush 10 ml 10 ml PRN PRN IV IV PROTOCOL; Start 06/13/17 at 14:00 Meropenem/Sodium Chloride (Merrem 1 Gm/50 ml (Pmx)) 50 ml @ 100 mls/hr Q12 IVPB Last administered on 06/16/17 08:39; Admin Dose 100 MLS/HR; Start 9/28/ 17 at 21:00 Pantoprazole (Protonix Iv) 40 mg BID@06,18 IV Last administered on 06/16/17 05 :17; Admin Dose 40 MG; Start 06/13/17 at 18:00 Ferrous Sulfate (Feosol Liquid Cup) 300 mg DAILY NGT Last administered on 08:41; Admin Dose 300 MG; Start 06/14/17 at 10:00 Amiodarone HCl (Cordarone) 400 mg TID PO Last administered on 06/16/17 12:01; Admin Dose 400 MG; Start 06/14/17 at 13:00 Mupirocin (Bactroban) 1 applic BID TOP Last administered on 06/16/17 08:42; Admin Dose 1 APPLIC; Start 06/14/17 at 21:00 Valproate Sodium (Depakene Liquid Cup) 500 mg DAILY NGT Last administered on 08:42; Admin Dose 500 MG; Start 06/14/17 at 16:00 Multivitamins 30 ml 30 ml DAILY NGT Last administered on 06/16/17 08:40; Admin Dose 30 ML; Start 06/15/17 at 09:30 Vancomycin HCl (Vancocin) 250 ml @ 125 mls/hr Q12H IVPB Last administered on 06/16/17 09:40; Admin Dose 125 MLS/HR; Start 06/15/17 at 22:00 CLAIRE WHITING MD Jun 16, 2017 12:08
--- NOTE | 2017-06-16 13:27 | CONS ---
Date/Time of Note Date/Time of Note DATE: 06/16/17 TIME: 13:24 Consult Date/Type/Reason Admit Date/Time Jun 12, 2017 at 11:47 Initial Consult Date 06/13/17 Type of Consultation: Pulm/CCM Ordering Provider: LETI LOPEZ Subjective Awake and alert on weaning trial. Objective Vital Signs Date Time Temp Pulse Resp B/P Pulse Ox O2 Delivery O2 Flow Rate FiO2 06/16/17 12:00 100.8 133 24 117/87 97 CPAP Mechanical Ventilator 06/16/17 11:40 30 06/12/17 09:45 8.0 Intake and Output 06/15/17 06/15/17 06/16/17 15:00 23:00 07:00 Intake Total 456.29 ml 174.74 ml 342.30 ml Output Total 405 ml 335 ml 240 ml Balance 51.29 ml -160.26 ml 102.30 ml Exam HEENT: Neck supple; no JVD; no LAD; + ET tube CVS: RRR, S1 and S2 CHEST: Scattered rhonchi B/L ABD: Soft, NT, + BS EXT: No c/c/e Results/Medications Result Diagram: 06/16/17 0510 06/16/17 0510 Results 24 hrs Laboratory Tests Test 06/15/17 20:45 06/16/17 05:10 06/16/17 09:00 Vancomycin Level Trough 10.5 White Blood Count 7.7 Red Blood Count 2.37 L Hemoglobin 7.3 L Hematocrit 23.0 L Mean Corpuscular Volume 97.0 Mean Corpuscular Hemoglobin 30.8 Mean Corpuscular Hemoglobin Concent 31.7 L Red Cell Distribution Width 18.6 H Platelet Count 321 Mean Platelet Volume 12.8 H Neutrophils % 69.2 Lymphocytes % 17.6 Monocytes % 8.2 Eosinophils % 4.0 Basophils % 0.3 Nucleated Red Blood Cells % 0.0 Neutrophils # 5.3 Lymphocytes # 1.4 Monocytes # 0.6 Eosinophils # 0.3 Basophils # 0.0 Nucleated Red Blood Cells # 0.0 Sodium Level 147 H Potassium Level 3.6 Chloride Level 117 H Carbon Dioxide Level 25 Anion Gap 9 Blood Urea Nitrogen 17 Creatinine 0.99 Glucose Level 94 Calcium Level 7.6 L Blood Gas Specimen Source Blood arterial Arterial Blood Date Drawn 06/16/2017 9:15:11 AM Arterial Blood pH (Temp corrected) 7.448 Arterial Blood pCO2 (Temp correct) 30.4 L Arterial Blood pO2 (Temp corrected) 82.2 Arterial Blood HCO3 20.6 L Arterial Blood Base Excess -2.6 Arterial Blood Oxygen Saturation 95.0 Vishal Test ACCEPTAB Arterial Blood Gas Puncture Site Right Radial Arterial Blood Carboxyhemoglobin 0.3 Arterial Blood Methemoglobin 0.3 Blood Gas A-a O2 Differential 96.0 H Oxyhemoglobin Percent 94.4 Total Hemoglobin 11.2 L Blood Gas Temperature 37.0 Blood Gas Actual Respiration Rate 17 Blood Gas Modality VENT - CPAP FiO2 30.0 Blood Gas Tidal Volume 600.0 Blood Gas Low PEEP Setting 5.0 Blood Gas Pressure Support 8 Blood Gas Notified Whom CW Blood Gas Notified Time 06/16/2017 9:35:12 AM Medications Current Medications Ascorbic Acid (Vitamin C) 500 mg DAILY PO Last administered on 06/16/17 08:41 ; Admin Dose 500 MG; Start 06/13/17 at 09:00 Atorvastatin Calcium (Lipitor) 20 mg QHS PO Last administered on 06/15/17 21: 09; Admin Dose 20 MG; Start 06/12/17 at 21:00 Finasteride (Proscar) 5 mg DAILY PO Last administered on 06/16/17 08:41; Admin Dose 5 MG; Start 06/13/17 at 09:00 Gabapentin (Neurontin) 300 mg TID PO Last administered on 06/16/17 12:00; Admin Dose 300 MG; Start 06/12/17 at 13:00 Albuterol/ Ipratropium (Duoneb) 3 ml Q2H PRN NEB CONSTIPATION; Start 06/12/17 at 12:30 Saccharomyces Boulardii (Florastor) 250 mg BID PO Last administered on 08:41; Admin Dose 250 MG; Start 06/12/17 at 21:00 Tamsulosin HCl (Flomax) 0.8 mg HS PO Last administered on 06/15/17 21:08; Admin Dose 0.8 MG; Start 06/12/17 at 21:00 Ondansetron HCl (Zofran Inj) 4 mg Q6H PRN IV NAUSEA AND/OR VOMITING; Start at 12:30 Acetaminophen (Tylenol Tab) 650 mg Q6H PRN PO PAIN LEVEL 1-3 OR FEVER; Start at 12:30 Acetaminophen (Tylenol Supp) 650 mg Q6H PRN ME PAIN LEVEL 1-3 OR FEVER; Start 06/12/17 at 12:30 Acetaminophen/ Hydrocodone Bitart ([place] (5/325)) 1 tab Q6H PRN PO MODERATE PAIN LEVEL 4-6 Last administered on 06/13/17 08:36; Admin Dose 1 TAB; Start at 12:30 Acetaminophen/ Hydrocodone Bitart ([place] (5/325)) 2 tab Q6H PRN PO SEVERE PAIN LEVEL 7-10; Start 06/12/17 at 12:30 Morphine Sulfate (morphine) 2 mg Q4H PRN IV SEVERE PAIN LEVEL 7-10; Start 06/12 at 12:30 Docusate Sodium (Colace) 100 mg Q12H PRN PO CONSTIPATION; Start 06/12/17 at 12: 30 Magnesium Hydroxide (Milk Of Mag) 30 ml DAILY PRN PO CONSTIPATION; Start at 12:30 Bisacodyl (Dulcolax Supp) 10 mg DAILY PRN ME CONSTIPATION; Start 06/12/17 at 12 :30 Morphine Sulfate 2 mg 2 mg Q2 PRN IV PAIN LEVEL 4-7 Last administered on 05:15; Admin Dose 2 MG; Start 06/12/17 at 14:30 Propofol 100 ml @ 2.31 mls/hr Q12H IV Last administered on 06/16/17 03:21; Admin Dose 13.86 MLS/HR; Start 06/12/17 at 16:30 Norepinephrine/ Dextrose (Levophed/D5W) 500 ml @ 1.87 mls/hr TITRATE IV Last administered on 06/13/17 14:11; Admin Dose 9.37 MLS/HR; Start 06/12/17 at 20:30 IV Flush 10 ml 10 ml PRN PRN IV IV PROTOCOL; Start 06/13/17 at 14:00 Meropenem/Sodium Chloride (Merrem 1 Gm/50 ml (Pmx)) 50 ml @ 100 mls/hr Q12 IVPB Last administered on 06/16/17 08:39; Admin Dose 100 MLS/HR; Start at 21:00 Pantoprazole (Protonix Iv) 40 mg BID@06,18 IV Last administered on 06/16/17 05 :17; Admin Dose 40 MG; Start 06/13/17 at 18:00 Ferrous Sulfate (Feosol Liquid Cup) 300 mg DAILY NGT Last administered on 08:41; Admin Dose 300 MG; Start 06/14/17 at 10:00 Amiodarone HCl (Cordarone) 400 mg TID PO Last administered on 06/16/17 12:01; Admin Dose 400 MG; Start 06/14/17 at 13:00 Mupirocin (Bactroban) 1 applic BID TOP Last administered on 06/16/17 08:42; Admin Dose 1 APPLIC; Start 06/14/17 at 21:00 Valproate Sodium (Depakene Liquid Cup) 500 mg DAILY NGT Last administered on 08:42; Admin Dose 500 MG; Start 06/14/17 at 16:00 Multivitamins 30 ml 30 ml DAILY NGT Last administered on 06/16/17 08:40; Admin Dose 30 ML; Start 06/15/17 at 09:30 Vancomycin HCl (Vancocin) 250 ml @ 125 mls/hr Q12H IVPB Last administered on 06/16/17 09:40; Admin Dose 125 MLS/HR; Start 06/15/17 at 22:00 Furosemide (Lasix) 20 mg ONCE ONCE IV ; Start 06/16/17 at 13:30; Stop 06/16/17 at 13:31 Assessment/Plan Additional Assessment/Plan IMP: 1. Respiratory Failure/Vent 2. Multifocal Pneumonia--HCAP vs. aspiration 3. AMS--improved 4. History of dementia. 5. History of atrial fibrillation. 6. Anemia RECS: 1. Tolerating CPAP/PS--> trial of extubation 2. Continue broad-spectrum antibiotic coverage 3. Repeat cultures 4. Deep vein thrombosis and gastrointestinal prophylaxis. 5. Gentle diuresis 40 min cc time CHARLEE HERNANDEZ MD Jun 16, 2017 13:27
[2017-06-16] MEDS ORDERED: FUROSEMIDE 20 MG INJ IV ONE (13:30)
--- NOTE | 2017-06-16 13:35 | PN ---
Date/Time of Note Date/Time of Note DATE: 06/16/17 TIME: 13:23 Assessment/Plan VTE Prophylaxis VTE Prophylaxis Intervention: SCD's Lines/Catheters Urinary Cath still in place: Yes Reason Cath still needed: urinary retention Assessment/Plan Chief Complaint/Hosp Course Summary of Assessment and Plan Assessment: Severe anemia No overt GI bleeding Sepsis/pneumonia Ventilator dependent respiratory failure Acute renal failure Organic brain syndrome Plan: Continue present regimen Consider endoscopic evaluation if evidence of bleeding Subjective: Course reviewed with nursing staff Patient interviewed and examined All labs, imaging and other results reviewed The patient remains intubated, appears to be improving No overt gastrointestinal bleeding We will hold off on procedures at the present time Exam: General: Intubated, on ventilator. Well developed, well nourished Skin: No lesions, no stigmata chronic liver disease, no evidence of bleeding diathesis Lymphatic: No palpable lymphadenopathy HEENT: No lesions Cardiovascular: Heart: Regular rate and rhythm, no murmurs, gallops or rubs. Peripheral pulses present within normal limits, no cyanosis, clubbing or edemas. No pulsatile abdominal mass Respiratory: Crackles bilaterally. Otherwise lungs clear to auscultation and percussion, no wheezing, no rubs Gastrointestinal and Liver: Abdomen: Soft, non tender, non-distended, no hernias , no masses, no organomegaly, no ascites, no guarding, no rebound tenderness, normoactive bowel sounds. Extremities: No cyanosis, clubbing, or edema. Diagnostic Studies: Available data and images were reviewed personally. See reports. Significant results and findings are addressed here or in the assessment and plan. Problems: Exam/Review of Systems Vital Signs Vitals Vital Signs Date Time Temp Pulse Resp B/P Pulse Ox O2 Delivery O2 Flow Rate FiO2 06/16/17 12:00 100.8 133 24 117/87 97 CPAP Mechanical Ventilator 06/16/17 11:40 30 06/12/17 09:45 8.0 Intake and Output 06/15/17 06/15/17 06/16/17 15:00 23:00 07:00 Intake Total 456.29 ml 174.74 ml 342.30 ml Output Total 405 ml 335 ml 240 ml Balance 51.29 ml -160.26 ml 102.30 ml Results Result Diagram: 06/16/17 0510 06/16/17 0510 Results 24 hrs Laboratory Tests Test 06/15/17 20:45 06/16/17 05:10 06/16/17 09:00 Vancomycin Level Trough 10.5 White Blood Count 7.7 Red Blood Count 2.37 L Hemoglobin 7.3 L Hematocrit 23.0 L Mean Corpuscular Volume 97.0 Mean Corpuscular Hemoglobin 30.8 Mean Corpuscular Hemoglobin Concent 31.7 L Red Cell Distribution Width 18.6 H Platelet Count 321 Mean Platelet Volume 12.8 H Neutrophils % 69.2 Lymphocytes % 17.6 Monocytes % 8.2 Eosinophils % 4.0 Basophils % 0.3 Nucleated Red Blood Cells % 0.0 Neutrophils # 5.3 Lymphocytes # 1.4 Monocytes # 0.6 Eosinophils # 0.3 Basophils # 0.0 Nucleated Red Blood Cells # 0.0 Sodium Level 147 H Potassium Level 3.6 Chloride Level 117 H Carbon Dioxide Level 25 Anion Gap 9 Blood Urea Nitrogen 17 Creatinine 0.99 Glucose Level 94 Calcium Level 7.6 L Blood Gas Specimen Source Blood arterial Arterial Blood Date Drawn 06/16/2017 9:15:11 AM Arterial Blood pH (Temp corrected) 7.448 Arterial Blood pCO2 (Temp correct) 30.4 L Arterial Blood pO2 (Temp corrected) 82.2 Arterial Blood HCO3 20.6 L Arterial Blood Base Excess -2.6 Arterial Blood Oxygen Saturation 95.0 Vishal Test ACCEPTAB Arterial Blood Gas Puncture Site Right Radial Arterial Blood Carboxyhemoglobin 0.3 Arterial Blood Methemoglobin 0.3 Blood Gas A-a O2 Differential 96.0 H Oxyhemoglobin Percent 94.4 Total Hemoglobin 11.2 L Blood Gas Temperature 37.0 Blood Gas Actual Respiration Rate 17 Blood Gas Modality VENT - CPAP FiO2 30.0 Blood Gas Tidal Volume 600.0 Blood Gas Low PEEP Setting 5.0 Blood Gas Pressure Support 8 Blood Gas Notified Whom CW Blood Gas Notified Time 06/16/2017 9:35:12 AM Medications Medications Current Medications Ascorbic Acid (Vitamin C) 500 mg DAILY PO Last administered on 06/16/17 08:41 ; Admin Dose 500 MG; Start 06/13/17 at 09:00 Atorvastatin Calcium (Lipitor) 20 mg QHS PO Last administered on 06/15/17 21: 09; Admin Dose 20 MG; Start 06/12/17 at 21:00 Finasteride (Proscar) 5 mg DAILY PO Last administered on 06/16/17 08:41; Admin Dose 5 MG; Start 06/13/17 at 09:00 Gabapentin (Neurontin) 300 mg TID PO Last administered on 06/16/17 12:00; Admin Dose 300 MG; Start 06/12/17 at 13:00 Albuterol/ Ipratropium (Duoneb) 3 ml Q2H PRN NEB CONSTIPATION; Start 06/12/17 at 12:30 Saccharomyces Boulardii (Florastor) 250 mg BID PO Last administered on 08:41; Admin Dose 250 MG; Start 06/12/17 at 21:00 Tamsulosin HCl (Flomax) 0.8 mg HS PO Last administered on 06/15/17 21:08; Admin Dose 0.8 MG; Start 06/12/17 at 21:00 Ondansetron HCl (Zofran Inj) 4 mg Q6H PRN IV NAUSEA AND/OR VOMITING; Start at 12:30 Acetaminophen (Tylenol Tab) 650 mg Q6H PRN PO PAIN LEVEL 1-3 OR FEVER; Start at 12:30 Acetaminophen (Tylenol Supp) 650 mg Q6H PRN [place] PAIN LEVEL 1-3 OR FEVER; Start 06/12/17 at 12:30 Acetaminophen/ Hydrocodone Bitart ([place] (5/325)) 1 tab Q6H PRN PO MODERATE PAIN LEVEL 4-6 Last administered on 06/13/17 08:36; Admin Dose 1 TAB; Start at 12:30 Acetaminophen/ Hydrocodone Bitart ([place] (5/325)) 2 tab Q6H PRN PO SEVERE PAIN LEVEL 7-10; Start 06/12/17 at 12:30 Morphine Sulfate (morphine) 2 mg Q4H PRN IV SEVERE PAIN LEVEL 7-10; Start 06/12 at 12:30 Docusate Sodium (Colace) 100 mg Q12H PRN PO CONSTIPATION; Start 06/12/17 at 12: 30 Magnesium Hydroxide (Milk Of Mag) 30 ml DAILY PRN PO CONSTIPATION; Start at 12:30 Bisacodyl (Dulcolax Supp) 10 mg DAILY PRN [place] CONSTIPATION; Start 06/12/17 at 12 :30 Morphine Sulfate 2 mg 2 mg Q2 PRN IV PAIN LEVEL 4-7 Last administered on 05:15; Admin Dose 2 MG; Start 06/12/17 at 14:30 Propofol 100 ml @ 2.31 mls/hr Q12H IV Last administered on 06/16/17 03:21; Admin Dose 13.86 MLS/HR; Start 06/12/17 at 16:30 Norepinephrine/ Dextrose (Levophed/D5W) 500 ml @ 1.87 mls/hr TITRATE IV Last administered on 06/13/17 14:11; Admin Dose 9.37 MLS/HR; Start 06/12/17 at 20:30 IV Flush 10 ml 10 ml PRN PRN IV IV PROTOCOL; Start 06/13/17 at 14:00 Meropenem/Sodium Chloride (Merrem 1 Gm/50 ml (Pmx)) 50 ml @ 100 mls/hr Q12 IVPB Last administered on 06/16/17 08:39; Admin Dose 100 MLS/HR; Start at 21:00 Pantoprazole (Protonix Iv) 40 mg BID@06,18 IV Last administered on 06/16/17 05 :17; Admin Dose 40 MG; Start 06/13/17 at 18:00 Ferrous Sulfate (Feosol Liquid Cup) 300 mg DAILY NGT Last administered on 08:41; Admin Dose 300 MG; Start 06/14/17 at 10:00 Amiodarone HCl (Cordarone) 400 mg TID PO Last administered on 06/16/17 12:01; Admin Dose 400 MG; Start 06/14/17 at 13:00 Mupirocin (Bactroban) 1 applic BID TOP Last administered on 06/16/17 08:42; Admin Dose 1 APPLIC; Start 06/14/17 at 21:00 Valproate Sodium (Depakene Liquid Cup) 500 mg DAILY NGT Last administered on 08:42; Admin Dose 500 MG; Start 06/14/17 at 16:00 Multivitamins 30 ml 30 ml DAILY NGT Last administered on 06/16/17 08:40; Admin Dose 30 ML; Start 06/15/17 at 09:30 Vancomycin HCl (Vancocin) 250 ml @ 125 mls/hr Q12H IVPB Last administered on 06/16/17 09:40; Admin Dose 125 MLS/HR; Start 06/15/17 at 22:00 DEN PITTMAN MD Jun 16, 2017 13:35
--- NOTE | 2017-06-16 13:58 | CONS ---
Date/Time of Note Date/Time of Note DATE: 06/16/17 TIME: 13:55 Assessment/Plan Assessment/Plan Chief Complaint/Hosp Course ID PROGRESS NOTE TOTAL ABX DAY # CURRENT ABX=> Vanco IV + Merrem #3 24H INTERVAL SUMMARY * Pt extubated today about 1300, stable, GENERAL: VSS, NAD HEENT: unremarkable NECK: Trach midline CHEST: Rise symmetrical -> (+)Course laryngeal congestion ABDOMEN: Soft, NT EXTREMITIES: Warm, (+)SCD's SKIN: No diaphoresis, no rash ID ASSESSMENT: 72 yo M admit with: 1. Septic shock=> RESOLVING 2. Acute respiratory failure secondary to left-sided pneumonia,possibly aspiration event=> EXTUBATED 06/16/17 3. Urinary tract infection=> MDRO * 06/12/17 URINE CULTURE Final Organism 1 PROTEUS MIRABILIS COLONY COUNT >100,000 CFU/ml 4. Methicillin-resistant Staphylococcus aureus nares colonization. 5. Alzheimer's dementia. 6. Acute on chronic anemia. 7. Acute renal failure and history of benign prostatic hypertrophy. INVASIVES: ETT, NGT, LUEXT PICC ABX ALLERGY: PCN/Neomycin TOTAL ABX DAY # CURRENT ABX=> Vanco IV + Merrem #3 ID PLAN 1. Continue current ABX post extubation period - at risk for recurrent aspiration 2. Aspiration precautions - Pt w/PCN allergy & GNR UTI is MDRO => Continue Merrem, unable to de-escalate . . . Problems: Consultation Date/Type/Reason Admit Date/Time Jun 12, 2017 at 11:47 Initial Consult Date 06/13/17 Type of Consultation: ID Referring Provider: LETI LOPEZ Exam/Review of Systems Vital Signs Vitals Vital Signs Date Time Temp Pulse Resp B/P Pulse Ox O2 Delivery O2 Flow Rate FiO2 06/16/17 13:00 133 22 115/76 97 CPAP Mechanical Ventilator 06/16/17 12:00 100.8 06/16/17 11:40 30 06/12/17 09:45 8.0 Intake and Output 06/15/17 06/15/17 06/16/17 15:00 23:00 07:00 Intake Total 456.29 ml 174.74 ml 342.30 ml Output Total 405 ml 335 ml 240 ml Balance 51.29 ml -160.26 ml 102.30 ml Results Result Diagram: 06/16/17 0510 06/16/17 0510 Results 24 hrs Laboratory Tests Test 06/15/17 20:45 06/16/17 05:10 06/16/17 09:00 Vancomycin Level Trough 10.5 White Blood Count 7.7 Red Blood Count 2.37 L Hemoglobin 7.3 L Hematocrit 23.0 L Mean Corpuscular Volume 97.0 Mean Corpuscular Hemoglobin 30.8 Mean Corpuscular Hemoglobin Concent 31.7 L Red Cell Distribution Width 18.6 H Platelet Count 321 Mean Platelet Volume 12.8 H Neutrophils % 69.2 Lymphocytes % 17.6 Monocytes % 8.2 Eosinophils % 4.0 Basophils % 0.3 Nucleated Red Blood Cells % 0.0 Neutrophils # 5.3 Lymphocytes # 1.4 Monocytes # 0.6 Eosinophils # 0.3 Basophils # 0.0 Nucleated Red Blood Cells # 0.0 Sodium Level 147 H Potassium Level 3.6 Chloride Level 117 H Carbon Dioxide Level 25 Anion Gap 9 Blood Urea Nitrogen 17 Creatinine 0.99 Glucose Level 94 Calcium Level 7.6 L Blood Gas Specimen Source Blood arterial Arterial Blood Date Drawn 06/16/2017 9:15:11 AM Arterial Blood pH (Temp corrected) 7.448 Arterial Blood pCO2 (Temp correct) 30.4 L Arterial Blood pO2 (Temp corrected) 82.2 Arterial Blood HCO3 20.6 L Arterial Blood Base Excess -2.6 Arterial Blood Oxygen Saturation 95.0 Vishal Test ACCEPTAB Arterial Blood Gas Puncture Site Right Radial Arterial Blood Carboxyhemoglobin 0.3 Arterial Blood Methemoglobin 0.3 Blood Gas A-a O2 Differential 96.0 H Oxyhemoglobin Percent 94.4 Total Hemoglobin 11.2 L Blood Gas Temperature 37.0 Blood Gas Actual Respiration Rate 17 Blood Gas Modality VENT - CPAP FiO2 30.0 Blood Gas Tidal Volume 600.0 Blood Gas Low PEEP Setting 5.0 Blood Gas Pressure Support 8 Blood Gas Notified Whom CW Blood Gas Notified Time 06/16/2017 9:35:12 AM Medications Medications Current Medications Ascorbic Acid (Vitamin C) 500 mg DAILY PO Last administered on 06/16/17 08:41 ; Admin Dose 500 MG; Start 06/13/17 at 09:00 Atorvastatin Calcium (Lipitor) 20 mg QHS PO Last administered on 06/15/17 21: 09; Admin Dose 20 MG; Start 06/12/17 at 21:00 Finasteride (Proscar) 5 mg DAILY PO Last administered on 06/16/17 08:41; Admin Dose 5 MG; Start 06/13/17 at 09:00 Gabapentin (Neurontin) 300 mg TID PO Last administered on 06/16/17 12:00; Admin Dose 300 MG; Start 06/12/17 at 13:00 Albuterol/ Ipratropium (Duoneb) 3 ml Q2H PRN NEB CONSTIPATION; Start 06/12/17 at 12:30 Saccharomyces Boulardii (Florastor) 250 mg BID PO Last administered on 08:41; Admin Dose 250 MG; Start 06/12/17 at 21:00 Tamsulosin HCl (Flomax) 0.8 mg HS PO Last administered on 06/15/17 21:08; Admin Dose 0.8 MG; Start 06/12/17 at 21:00 Ondansetron HCl (Zofran Inj) 4 mg Q6H PRN IV NAUSEA AND/OR VOMITING; Start at 12:30 Acetaminophen (Tylenol Tab) 650 mg Q6H PRN PO PAIN LEVEL 1-3 OR FEVER; Start at 12:30 Acetaminophen (Tylenol Supp) 650 mg Q6H PRN [place] PAIN LEVEL 1-3 OR FEVER; Start 06/12/17 at 12:30 Acetaminophen/ Hydrocodone Bitart ([place] (5/325)) 1 tab Q6H PRN PO MODERATE PAIN LEVEL 4-6 Last administered on 06/13/17 08:36; Admin Dose 1 TAB; Start at 12:30 Acetaminophen/ Hydrocodone Bitart ([place] (5/325)) 2 tab Q6H PRN PO SEVERE PAIN LEVEL 7-10; Start 06/12/17 at 12:30 Morphine Sulfate (morphine) 2 mg Q4H PRN IV SEVERE PAIN LEVEL 7-10; Start 06/12 at 12:30 Docusate Sodium (Colace) 100 mg Q12H PRN PO CONSTIPATION; Start 06/12/17 at 12: 30 Magnesium Hydroxide (Milk Of Mag) 30 ml DAILY PRN PO CONSTIPATION; Start at 12:30 Bisacodyl (Dulcolax Supp) 10 mg DAILY PRN [place] CONSTIPATION; Start 06/12/17 at 12 :30 Morphine Sulfate 2 mg 2 mg Q2 PRN IV PAIN LEVEL 4-7 Last administered on 05:15; Admin Dose 2 MG; Start 06/12/17 at 14:30 Propofol 100 ml @ 2.31 mls/hr Q12H IV Last administered on 06/16/17 03:21; Admin Dose 13.86 MLS/HR; Start 06/12/17 at 16:30 Norepinephrine/ Dextrose (Levophed/D5W) 500 ml @ 1.87 mls/hr TITRATE IV Last administered on 06/13/17 14:11; Admin Dose 9.37 MLS/HR; Start 06/12/17 at 20:30 IV Flush 10 ml 10 ml PRN PRN IV IV PROTOCOL; Start 06/13/17 at 14:00 Meropenem/Sodium Chloride (Merrem 1 Gm/50 ml (Pmx)) 50 ml @ 100 mls/hr Q12 IVPB Last administered on 06/16/17 08:39; Admin Dose 100 MLS/HR; Start at 21:00 Pantoprazole (Protonix Iv) 40 mg BID@06,18 IV Last administered on 06/16/17 05 :17; Admin Dose 40 MG; Start 06/13/17 at 18:00 Ferrous Sulfate (Feosol Liquid Cup) 300 mg DAILY NGT Last administered on 08:41; Admin Dose 300 MG; Start 06/14/17 at 10:00 Amiodarone HCl (Cordarone) 400 mg TID PO Last administered on 06/16/17 12:01; Admin Dose 400 MG; Start 06/14/17 at 13:00 Mupirocin (Bactroban) 1 applic BID TOP Last administered on 06/16/17 08:42; Admin Dose 1 APPLIC; Start 06/14/17 at 21:00 Valproate Sodium (Depakene Liquid Cup) 500 mg DAILY NGT Last administered on 08:42; Admin Dose 500 MG; Start 06/14/17 at 16:00 Multivitamins 30 ml 30 ml DAILY NGT Last administered on 06/16/17 08:40; Admin Dose 30 ML; Start 06/15/17 at 09:30 Vancomycin HCl (Vancocin) 250 ml @ 125 mls/hr Q12H IVPB Last administered on 06/16/17t 09:40; Admin Dose 125 MLS/HR; Start 06/15/17 at 22:00 TITI BOWLING NP Jun 16, 2017 13:58
--- NOTE | 2017-06-16 14:16 | PN ---
DATE: 06/16/2017 SUBJECTIVE DATA: Mr. Huber remains off pressors. He remains intubated. ASSESSMENT: 1. Septic shock, off pressors. 2. Paroxysmal atrial fibrillation still with rapid rates, reserved ejection fraction. PHYSICAL EXAMINATION: Remains intubated. Temperature 100.8, pulse 133, blood pressure 117/87, irregular rate and rhythm. Decreased air entry bilaterally. EXTREMITIES: Reveal no edema. LAB: Hematocrit 23, sodium 147, BUN 17, creatinine 0.9. MEDICATIONS: 1. Vancomycin 2. Amiodarone t.i.d. 3. Flomax. 4. Propofol. Patient does remain tachycardic with atrial fibrillation, however, in light of his severe anemia, sepsis, low-grade fever, the tachycardia may be secondary. Dictated By: Johnny Zuñiga MD /walker/clarisse /Document#: [id number]
--- NOTE | 2017-06-16 14:33 | PN ---
Date/Time of Note Date/Time of Note DATE: 06/16/17 TIME: 14:25 Assessment/Plan VTE Prophylaxis VTE Prophylaxis Intervention: SCD's Lines/Catheters Urinary Cath still in place: Yes Reason Cath still needed: other (indicate) (monitor I&O) Assessment/Plan Chief Complaint/Hosp Course Impression and plan 1. Sepsis likely secondary to aspiration pneumonia. s/p shock . Patient does have extensive history of Alzheimer's as well as dysphagia. Continue antibiotics. . Router Operator following. extubated. improving . 2. Respiratory failure secondary to #1. improving. continue bronchodilators 3. Alzheimer's disease. Continue with aspiration precautions. Also continue with skin precautions as well. f 4. A. fib with RVR. Manager Legal consulted. stable at present. continue telemetry monitoring 5. History of COPD. Will provide with bronchodilators as needed. Router Operator following 6. BPH. Lindsey in place per urologist. Monitor output. Disposition and plan: slowly improving. continue abx. transfer out of icu when cleared by consultants Discussed plan of care with Dr. Tse Critical CARE time: 30 minutes Problems: Subjective 24 Hr Interval Summary Free Text/Dictation Patient seen extubated at this time. No symptoms of respiratory distress Exam/Review of Systems Vital Signs Vitals Vital Signs Date Time Temp Pulse Resp B/P Pulse Ox O2 Delivery O2 Flow Rate FiO2 06/16/17 14:00 104 24 130/77 92 Nasal Cannula 4.0 06/16/17 12:00 100.8 06/16/17 11:40 30 Intake and Output 06/15/17 06/15/17 06/16/17 15:00 23:00 07:00 Intake Total 456.29 ml 174.74 ml 342.30 ml Output Total 405 ml 335 ml 240 ml Balance 51.29 ml -160.26 ml 102.30 ml Exam Constitutional: extubated at this time Head: normocephalic Respiratory: some congested noted Cardiovascular: irregular rhythm Gastrointestinal: non-tender, soft. NG tube in place Musculoskeletal: nl extremities to inspection Extremities: calf tenderness, normal pulses Neurological: confused, alert, nonverbal Results Result Diagram: 06/16/17 0510 06/16/17 0510 Results 24 hrs Laboratory Tests Test 06/15/17 20:45 06/16/17 05:10 06/16/17 09:00 Vancomycin Level Trough 10.5 White Blood Count 7.7 Red Blood Count 2.37 L Hemoglobin 7.3 L Hematocrit 23.0 L Mean Corpuscular Volume 97.0 Mean Corpuscular Hemoglobin 30.8 Mean Corpuscular Hemoglobin Concent 31.7 L Red Cell Distribution Width 18.6 H Platelet Count 321 Mean Platelet Volume 12.8 H Neutrophils % 69.2 Lymphocytes % 17.6 Monocytes % 8.2 Eosinophils % 4.0 Basophils % 0.3 Nucleated Red Blood Cells % 0.0 Neutrophils # 5.3 Lymphocytes # 1.4 Monocytes # 0.6 Eosinophils # 0.3 Basophils # 0.0 Nucleated Red Blood Cells # 0.0 Sodium Level 147 H Potassium Level 3.6 Chloride Level 117 H Carbon Dioxide Level 25 Anion Gap 9 Blood Urea Nitrogen 17 Creatinine 0.99 Glucose Level 94 Calcium Level 7.6 L Blood Gas Specimen Source Blood arterial Arterial Blood Date Drawn 06/16/2017 9:15:11 AM Arterial Blood pH (Temp corrected) 7.448 Arterial Blood pCO2 (Temp correct) 30.4 L Arterial Blood pO2 (Temp corrected) 82.2 Arterial Blood HCO3 20.6 L Arterial Blood Base Excess -2.6 Arterial Blood Oxygen Saturation 95.0 Vishal Test ACCEPTAB Arterial Blood Gas Puncture Site Right Radial Arterial Blood Carboxyhemoglobin 0.3 Arterial Blood Methemoglobin 0.3 Blood Gas A-a O2 Differential 96.0 H Oxyhemoglobin Percent 94.4 Total Hemoglobin 11.2 L Blood Gas Temperature 37.0 Blood Gas Actual Respiration Rate 17 Blood Gas Modality VENT - CPAP FiO2 30.0 Blood Gas Tidal Volume 600.0 Blood Gas Low PEEP Setting 5.0 Blood Gas Pressure Support 8 Blood Gas Notified Whom CW Blood Gas Notified Time 06/16/2017 9:35:12 AM Medications Medications Current Medications Ascorbic Acid (Vitamin C) 500 mg DAILY PO Last administered on 06/16/17 08:41 ; Admin Dose 500 MG; Start 06/13/17 at 09:00 Atorvastatin Calcium (Lipitor) 20 mg QHS PO Last administered on 06/15/17 21: 09; Admin Dose 20 MG; Start 06/12/17 at 21:00 Finasteride (Proscar) 5 mg DAILY PO Last administered on 06/16/17 08:41; Admin Dose 5 MG; Start 06/13/17 at 09:00 Gabapentin (Neurontin) 300 mg TID PO Last administered on 06/16/17 12:00; Admin Dose 300 MG; Start 06/12/17 at 13:00 Albuterol/ Ipratropium (Duoneb) 3 ml Q2H PRN NEB CONSTIPATION; Start 06/12/17 at 12:30 Saccharomyces Boulardii (Florastor) 250 mg BID PO Last administered on 08:41; Admin Dose 250 MG; Start 06/12/17 at 21:00 Tamsulosin HCl (Flomax) 0.8 mg HS PO Last administered on 06/15/17 21:08; Admin Dose 0.8 MG; Start 06/12/17 at 21:00 Ondansetron HCl (Zofran Inj) 4 mg Q6H PRN IV NAUSEA AND/OR VOMITING; Start at 12:30 Acetaminophen (Tylenol Tab) 650 mg Q6H PRN PO PAIN LEVEL 1-3 OR FEVER; Start at 12:30 Acetaminophen (Tylenol Supp) 650 mg Q6H PRN [place] PAIN LEVEL 1-3 OR FEVER; Start 06/12/17 at 12:30 Acetaminophen/ Hydrocodone Bitart ([place] (5/325)) 1 tab Q6H PRN PO MODERATE PAIN LEVEL 4-6 Last administered on 06/13/17 08:36; Admin Dose 1 TAB; Start at 12:30 Acetaminophen/ Hydrocodone Bitart ([place] (5/325)) 2 tab Q6H PRN PO SEVERE PAIN LEVEL 7-10; Start 06/12/17 at 12:30 Morphine Sulfate (morphine) 2 mg Q4H PRN IV SEVERE PAIN LEVEL 7-10; Start 06/12 at 12:30 Docusate Sodium (Colace) 100 mg Q12H PRN PO CONSTIPATION; Start 06/12/17 at 12: 30 Magnesium Hydroxide (Milk Of Mag) 30 ml DAILY PRN PO CONSTIPATION; Start at 12:30 Bisacodyl (Dulcolax Supp) 10 mg DAILY PRN [place] CONSTIPATION; Start 06/12/17 at 12 :30 Morphine Sulfate 2 mg 2 mg Q2 PRN IV PAIN LEVEL 4-7 Last administered on 05:15; Admin Dose 2 MG; Start 06/12/17 at 14:30 Propofol 100 ml @ 2.31 mls/hr Q12H IV Last administered on 06/16/17 03:21; Admin Dose 13.86 MLS/HR; Start 06/12/17 at 16:30 Norepinephrine/ Dextrose (Levophed/D5W) 500 ml @ 1.87 mls/hr TITRATE IV Last administered on 06/13/17 14:11; Admin Dose 9.37 MLS/HR; Start 06/12/17 at 20:30 IV Flush 10 ml 10 ml PRN PRN IV IV PROTOCOL; Start 06/13/17 at 14:00 Meropenem/Sodium Chloride (Merrem 1 Gm/50 ml (Pmx)) 50 ml @ 100 mls/hr Q12 IVPB Last administered on 06/16/17 08:39; Admin Dose 100 MLS/HR; Start at 21:00 Pantoprazole (Protonix Iv) 40 mg BID@06,18 IV Last administered on 06/16/17 05 :17; Admin Dose 40 MG; Start 06/13/17 at 18:00 Ferrous Sulfate (Feosol Liquid Cup) 300 mg DAILY NGT Last administered on 08:41; Admin Dose 300 MG; Start 06/14/17 at 10:00 Amiodarone HCl (Cordarone) 400 mg TID PO Last administered on 06/16/17 12:01; Admin Dose 400 MG; Start 06/14/17 at 13:00 Mupirocin (Bactroban) 1 applic BID TOP Last administered on 06/16/17 08:42; Admin Dose 1 APPLIC; Start 06/14/17 at 21:00 Valproate Sodium (Depakene Liquid Cup) 500 mg DAILY NGT Last administered on 08:42; Admin Dose 500 MG; Start 06/14/17 at 16:00 Multivitamins 30 ml 30 ml DAILY NGT Last administered on 06/16/17 08:40; Admin Dose 30 ML; Start 06/15/17 at 09:30 Vancomycin HCl (Vancocin) 250 ml @ 125 mls/hr Q12H IVPB Last administered on 06/16/17 09:40; Admin Dose 125 MLS/HR; Start 06/15/17 at 22:00 LETI LOPEZ Jun 16, 2017 14:33
[2017-06-16] MEDS: ALBUTEROL/IPRATROPIUM (NEB) 3 ML AMP NEB SCH ×2 (17:19→20:46)
[2017-06-16] MEDS: ATORVASTATIN 20 MG TAB PO SCH (20:34)
[2017-06-16] MEDS: TAMSULOSIN (SR) 0.4 MG CAP PO SCH (20:34)
[2017-06-17] VITALS (44 sets, daily range): BP systolic 112–154; BP diastolic 62–97; PULSE 73–96; RESP 13–25
[2017-06-17] MEDS: ALBUTEROL/IPRATROPIUM (NEB) 3 ML AMP NEB SCH ×6 (00:01→21:12)
[2017-06-17] MEDS: PROPOFOL 100 ML IV SCH (04:30)
[2017-06-17 05:08] LABS: AADO2 Arterial 98.9 mmHg (7.0-24.0); Allen Test ACCEPTAB; Arterial Base Excess 2.2 mmol/L (-3.0-3); Arterial COHb 0 % (0.0-3.0); Arterial HCO3 26.2 mmol/L (22.0-26.0); Arterial MetHb 0.5 % (0.0-1.5); Arterial Total Hemglobin 7.4 g/dl (12.0-18.0); MODE NASAL CANNULA
[2017-06-17] MEDS: PANTOPRAZOLE 40 MG INJ IV SCH ×2 (05:18→18:47)
[2017-06-17 05:54] LABS: ABNORMAL IP MESSAGE 1; BASOPHILS % 0.3 % (0.0-2.0); EOSINOPHILS # 0.2 10^3/ul (0.0-0.5); HEMATOCRIT 22.5 % (42.0-52.0); LYMPHOCYTES # 1.2 10^3/ul (0.8-2.9); LYMPHOCYTES % 13.9 % (15.0-51.0); MEAN CORPUSCULAR HEMOGLOBIN 29.5 pg (29.0-33.0); MEAN CORPUSCULAR HGB CONC 30.7 g/dl (32.0-37.0); MEAN CORPUSCULAR VOLUME 96.2 fl (82.0-101.0); MEAN PLATELET VOLUME 12.5 fl (7.4-10.4); MONOCYTE # 0.8 10^3/ul (0.3-0.9); MONOCYTES % 9.5 % (0.0-11.0); NEUTROPHIL # 6.4 10^3/ul (1.6-7.5); NEUTROPHILS % 73.6 % (39.0-77.0); PLATELET COUNT 349 10^3/UL (140-415); POSITIVE DIFF @See below; RED BLOOD COUNT 2.34 10^6/ul (4.70-6.10); RED CELL DISTRIBUTION WIDTH 18.2 % (11.5-14.5); WHITE BLOOD COUNT 8.7 10^3/ul (4.8-10.8)
[2017-06-17 06:11] LABS: HEMOGLOBIN 6.9 g/dl (14.0-18.0)
[2017-06-17 06:32] LABS: CALCIUM 7.9 mg/dl (8.4-10.2); CREATININE 1.09 mg/dl (0.61-1.24); POTASSIUM 3.5 mmol/L (3.5-5.1)
[2017-06-17] MEDS ORDERED: SOD CHLORIDE 0.9% 250 ML IV* ONE (06:36)
--- NOTE | 2017-06-17 07:43 | RADRPT ---
PROCEDURE: XR Chest. CLINICAL INDICATION: Shortness of breath. TECHNIQUE: Single frontal view. COMPARISON: 06/16/2017. FINDINGS: The endotracheal tube has been removed. The nasogastric tube and left arm PICC line remain in satisf actory position. Bilateral pulmonary air space disease in the mid and lower lung zones is improved o n the right and worse on the left. The heart size is normal. There is calcification in the aorta consistent with atherosclerosis. There is no pleural effusion. There is no pneumothorax. IMPRESSION: 1. Improved appearance of the right lung and worse appearance of the left lung. 2. Endotracheal tube removed. 3. No other change from 06/16/2017. RPTAT: QQ .Karl Rebollar MD, MD Date Time Electronically viewed and signed by .Karl Rebollar MD, on 06/17/2017 07:42 .R/
[2017-06-17] MEDS: GABAPENTIN 300 MG CAP PO SCH ×3 (08:17→20:16)
[2017-06-17] MEDS: FINASTERIDE 5 MG TAB PO SCH (08:17)
[2017-06-17] MEDS: FERROUS SULFATE 60 MG/ML 5ML CUP NGT SCH (08:17)
[2017-06-17] MEDS: SACCHAROMYCES BOULARDII 250 MG CAP PO SCH ×2 (08:17→20:16)
[2017-06-17] MEDS: MULTIVITAMINS 30 ML CUP NGT SCH (08:17)
[2017-06-17] MEDS: VALPROIC ACID LIQUID CUP 250 MG/5 ML CUP NGT SCH (08:17)
[2017-06-17] MEDS: ASCORBIC ACID 500 MG TAB PO SCH (08:17)
[2017-06-17] MEDS: MEROPENEM 1 GM/50ML(PMX) 50 ML IVPB SCH ×2 (08:18→20:30)
[2017-06-17] MEDS: AMIODARONE 200 MG TAB PO SCH ×2 (08:45→20:17)
--- NOTE | 2017-06-17 10:21 | CONS ---
Date/Time of Note Date/Time of Note DATE: 06/17/17 TIME: 10:19 Consult Date/Type/Reason Admit Date/Time Jun 12, 2017 at 11:47 Initial Consult Date 06/12/17 Type of Consultation: Pulmonary Ordering Provider: LETI LOPEZ Subjective Patient stable this morning. Awake alert but not following commands. Nasogastric tube in place. Objective Vital Signs Date Time Temp Pulse Resp B/P Pulse Ox O2 Delivery O2 Flow Rate FiO2 06/17/17 09:39 80 16 98 Nasal Cannula 3.0 06/17/17 08:00 98.3 131/75 06/16/17 11:40 30 Intake and Output 06/16/17 06/16/17 06/17/17 15:00 23:00 07:00 Intake Total 660 ml 225 ml 125 ml Output Total 820 ml 290 ml 495 ml Balance -160 ml -65 ml -370 ml Exam GENERAL: gentleman comfortable at rest no acute distress, nasogastric tube in place VITAL SIGNS: per chart NECK: Supple. No JVD or lymphadenopathy. CARDIAC EXAM: S1, S2. No added sounds or murmurs. CHEST: Diminished air entry bilaterally ABDOMEN: Soft, nontender. No guarding or rebound. EXTREMITIES: No cyanosis, clubbing or edema. NEUROLOGIC: Generalized weakness. No focal deficits. Results/Medications Result Diagram: 06/17/17 0400 06/17/17 0400 Results 24 hrs Laboratory Tests Test 06/17/17 04:00 06/17/17 05:00 White Blood Count 8.7 Red Blood Count 2.34 L Hemoglobin 6.9 *L Hematocrit 22.5 L Mean Corpuscular Volume 96.2 Mean Corpuscular Hemoglobin 29.5 Mean Corpuscular Hemoglobin Concent 30.7 L Red Cell Distribution Width 18.2 H Platelet Count 349 Mean Platelet Volume 12.5 H Neutrophils % 73.6 Lymphocytes % 13.9 L Monocytes % 9.5 Eosinophils % 2.0 Basophils % 0.3 Nucleated Red Blood Cells % 0.0 Neutrophils # 6.4 Lymphocytes # 1.2 Monocytes # 0.8 Eosinophils # 0.2 Basophils # 0.0 Nucleated Red Blood Cells # 0.0 Sodium Level 146 H Potassium Level 3.5 Chloride Level 114 H Carbon Dioxide Level 27 Anion Gap 9 Blood Urea Nitrogen 18 Creatinine 1.09 Glucose Level 104 Calcium Level 7.9 L Blood Gas Specimen Source Blood arterial Arterial Blood Date Drawn 06/17/2017 4:48:51 AM Arterial Blood pH (Temp corrected) 7.459 H Arterial Blood pCO2 (Temp correct) 37.7 Arterial Blood pO2 (Temp corrected) 92.4 H Arterial Blood HCO3 26.2 H Arterial Blood Base Excess 2.2 Arterial Blood Oxygen Saturation 96.5 Vishal Test ACCEPTAB Arterial Blood Gas Puncture Site Left Radial Arterial Blood Carboxyhemoglobin 0 Arterial Blood Methemoglobin 0.5 Blood Gas A-a O2 Differential 98.9 H Oxyhemoglobin Percent 96.0 Total Hemoglobin 7.4 L Blood Gas Temperature 37.0 Blood Gas Modality NASAL CANNULA FiO2 33.0 Blood Gas Notified Whom RTR Blood Gas Notified Time 06/17/2017 5:08:04 AM Medications Current Medications Ascorbic Acid (Vitamin C) 500 mg DAILY PO Last administered on 06/17/17 08:17 ; Admin Dose 500 MG; Start 06/13/17 at 09:00 Atorvastatin Calcium (Lipitor) 20 mg QHS PO Last administered on 06/16/17 20: 34; Admin Dose 20 MG; Start 06/12/17 at 21:00 Finasteride (Proscar) 5 mg DAILY PO Last administered on 06/17/17 08:17; Admin Dose 5 MG; Start 06/13/17 at 09:00 Gabapentin (Neurontin) 300 mg TID PO Last administered on 06/17/17 08:17; Admin Dose 300 MG; Start 06/12/17 at 13:00 Saccharomyces Boulardii (Florastor) 250 mg BID PO Last administered on 08:17; Admin Dose 250 MG; Start 06/12/17 at 21:00 Tamsulosin HCl (Flomax) 0.8 mg HS PO Last administered on 06/16/17 20:34; Admin Dose 0.8 MG; Start 06/12/17 at 21:00 Ondansetron HCl (Zofran Inj) 4 mg Q6H PRN IV NAUSEA AND/OR VOMITING; Start at 12:30 Acetaminophen (Tylenol Tab) 650 mg Q6H PRN PO PAIN LEVEL 1-3 OR FEVER; Start at 12:30 Acetaminophen (Tylenol Supp) 650 mg Q6H PRN [place] PAIN LEVEL 1-3 OR FEVER; Start 06/12/17 at 12:30 Acetaminophen/ Hydrocodone Bitart ([place] (5/325)) 1 tab Q6H PRN PO MODERATE PAIN LEVEL 4-6 Last administered on 06/13/17 08:36; Admin Dose 1 TAB; Start at 12:30 Acetaminophen/ Hydrocodone Bitart ([place] (5/325)) 2 tab Q6H PRN PO SEVERE PAIN LEVEL 7-10; Start 06/12/17 at 12:30 Morphine Sulfate (morphine) 2 mg Q4H PRN IV SEVERE PAIN LEVEL 7-10; Start 06/12 at 12:30 Docusate Sodium (Colace) 100 mg Q12H PRN PO CONSTIPATION; Start 06/12/17 at 12: 30 Magnesium Hydroxide (Milk Of Mag) 30 ml DAILY PRN PO CONSTIPATION; Start at 12:30 Bisacodyl (Dulcolax Supp) 10 mg DAILY PRN [place] CONSTIPATION; Start 06/12/17 at 12 :30 Morphine Sulfate 2 mg 2 mg Q2 PRN IV PAIN LEVEL 4-7 Last administered on 05:15; Admin Dose 2 MG; Start 06/12/17 at 14:30 Norepinephrine/ Dextrose (Levophed/D5W) 500 ml @ 1.87 mls/hr TITRATE IV Last administered on 06/13/17 14:11; Admin Dose 9.37 MLS/HR; Start 06/12/17 at 20:30 IV Flush 10 ml 10 ml PRN PRN IV IV PROTOCOL; Start 06/13/17 at 14:00 Meropenem/Sodium Chloride (Merrem 1 Gm/50 ml (Pmx)) 50 ml @ 100 mls/hr Q12 IVPB Last administered on 06/17/17 08:18; Admin Dose 100 MLS/HR; Start at 21:00 Pantoprazole (Protonix Iv) 40 mg BID@06,18 IV Last administered on 06/17/17 05 :18; Admin Dose 40 MG; Start 06/13/17 at 18:00 Ferrous Sulfate (Feosol Liquid Cup) 300 mg DAILY NGT Last administered on 08:17; Admin Dose 300 MG; Start 06/14/17 at 10:00 Amiodarone HCl (Cordarone) 400 mg TID PO Last administered on 06/16/17 20:35; Admin Dose 400 MG; Start 06/14/17 at 13:00 Mupirocin (Bactroban) 1 applic BID TOP Last administered on 06/16/17 20:38; Admin Dose 1 APPLIC; Start 06/14/17 at 21:00 Valproate Sodium (Depakene Liquid Cup) 500 mg DAILY NGT Last administered on 08:17; Admin Dose 500 MG; Start 06/14/17 at 16:00 Multivitamins 30 ml 30 ml DAILY NGT Last administered on 06/17/17 08:17; Admin Dose 30 ML; Start 06/15/17 at 09:30 Vancomycin HCl (Vancocin) 250 ml @ 125 mls/hr Q12H IVPB Last administered on 06/16/17 22:09; Admin Dose 125 MLS/HR; Start 06/15/17 at 22:00 Assessment/Plan Chief Complaint/Hosp Course IMPRESSION: 1. Healthcare associate pneumonia, L infiltrate 2. Possible aspiration component. 3. Hypoxemic respiratory failure. 4. History of dementia. 5. History of atrial fibrillation. 6. Anemia ? GIB PLAN: 1. Incentive spirometry and aspiration precautions 2. Consider transfusion packed red blood cells 3. Speech therapy recommendations 4. Deep vein thrombosis and gastrointestinal prophylaxis. 5. GI recommendations Transfer to telemetry okay from primary standpoint Problems: LEIGHA DE LEÓN MD, [facility] Jun 17, 2017 10:21
[2017-06-17] MEDS: MUPIROCIN 2% 22 GM OINT TOP SCH ×2 (11:11→20:17)
[2017-06-17] MEDS: VANCOMYCIN 1 GM in NS 250 ML IVPB SCH ×2 (11:11→22:28)
--- NOTE | 2017-06-17 11:16 | PN ---
DATE: 06/17/2017 SUBJECTIVE DATA: The patient is awake, getting blood transfusion. He is minimally communicative,and in no distress. Temperature 98.3 with a T-max yesterday of 100.8, pulse 81, respirations 17, blood pressure 131/75, saturation 99 on 4 L. LABORATORY AND DIAGNOSTIC DATA: WBC 8.7, hemoglobin and hematocrit 6.9 and 22.5, platelets 349,000, no shift, no bands. BUN 18, creatinine 1.09. MICROBIOLOGY: Blood cultures since admission negative. Nares swab positive for MRSA. Urine culture grew Proteus mirabilis susceptible to cefotaxime and ampicillin. INDWELLING: Patient has NG tube, Lindsey catheter, left upper extremity PICC line. ANTIMICROBIALS: Vancomycin, Meropenem. PHYSICAL EXAMINATION: GENERAL: This is a chronically ill-appearing elderly man who is in no distress. HEENT: Head atraumatic, normocephalic. Sclerae anicteric. Buccal mucosa dry. NECK: Supple. CHEST: Rise symmetrical. Breath sounds diminished at the bases. HEART: S1, S2. ABDOMEN: Soft, bowel sounds present. EXTREMITIES: With trace edema. SKIN: Without jaundice, rashes or cyanosis. ASSESSMENT: 1. Resolving sepsis status post shock. 2. Healthcare-associated pneumonia possibly aspiration event, status post extubated. 3. Urinary tract infection. 4. Methicillin-resistant Staphylococcus aureus nares colonization. 5. Acute on chronic anemia. 6. Dysphagia. 7. Dementia. 8. History of benign prostatic hypertrophy. PLAN: The patient remains stable post extubation. Covered with appropriate antimicrobials. Continue anti-aspiration measures. Monitor hemoglobin and hematocrit and transfuse as needed. Dictated By: Yue Loaiza NP /walker/amy /Document#: [id number]
--- NOTE | 2017-06-17 13:54 | CONS ---
Date/Time of Note Date/Time of Note DATE: 06/17/17 TIME: 13:52 Assessment/Plan Assessment/Plan Additional Assessment/Plan Septic shock off IV pressor Paroxysmal atrial fibrillation with rapid ventricular rates Respiratory failure status post extubation Acute kidney injury Preserved ejection fraction Acute blood loss anemia status post blood transfusion -Patient off IV pressor, blood pressure trend currently stable. On p.o. amiodarone, with titrate to twice daily. No anticoagulation at the current time given severe anemia status post blood transfusion. Maintain potassium above 4.0 and magnesium above 2.0 Consultation Date/Type/Reason Admit Date/Time Jun 12, 2017 at 11:47 Initial Consult Date 06/13/17 Type of Consultation: cv Referring Provider: LETI LOPEZ 24 HR Interval Summary Free Text/Dictation Patient seen and examined. Extubated Exam/Review of Systems Vital Signs Vitals Vital Signs Date Time Temp Pulse Resp B/P Pulse Ox O2 Delivery O2 Flow Rate FiO2 06/17/17 13:45 90 18 95 06/17/17 13:30 128/63 Nasal Cannula 06/17/17 13:15 3.0 06/17/17 12:15 98.4 06/16/17 11:40 30 Intake and Output 06/16/17 06/16/17 06/17/17 15:00 23:00 07:00 Intake Total 660 ml 225 ml 125 ml Output Total 820 ml 290 ml 495 ml Balance -160 ml -65 ml -370 ml Exam Awake but not following commands, no apparent distress, has NG tube Head: normocephalic Respiratory: other (Coarse breath sounds bilaterally, no wheezing) Cardiovascular: other (S1-S2 heard), regular rate and rhythm Gastrointestinal: bowel sounds, non-tender, soft Extremities: edema Results Result Diagram: 06/17/17 0400 06/17/17 0400 Results 24 hrs Laboratory Tests Test 06/17/17 04:00 06/17/17 05:00 White Blood Count 8.7 Red Blood Count 2.34 L Hemoglobin 6.9 *L Hematocrit 22.5 L Mean Corpuscular Volume 96.2 Mean Corpuscular Hemoglobin 29.5 Mean Corpuscular Hemoglobin Concent 30.7 L Red Cell Distribution Width 18.2 H Platelet Count 349 Mean Platelet Volume 12.5 H Neutrophils % 73.6 Lymphocytes % 13.9 L Monocytes % 9.5 Eosinophils % 2.0 Basophils % 0.3 Nucleated Red Blood Cells % 0.0 Neutrophils # 6.4 Lymphocytes # 1.2 Monocytes # 0.8 Eosinophils # 0.2 Basophils # 0.0 Nucleated Red Blood Cells # 0.0 Sodium Level 146 H Potassium Level 3.5 Chloride Level 114 H Carbon Dioxide Level 27 Anion Gap 9 Blood Urea Nitrogen 18 Creatinine 1.09 Glucose Level 104 Calcium Level 7.9 L Blood Gas Specimen Source Blood arterial Arterial Blood Date Drawn 06/17/2017 4:48:51 AM Arterial Blood pH (Temp corrected) 7.459 H Arterial Blood pCO2 (Temp correct) 37.7 Arterial Blood pO2 (Temp corrected) 92.4 H Arterial Blood HCO3 26.2 H Arterial Blood Base Excess 2.2 Arterial Blood Oxygen Saturation 96.5 Vishal Test ACCEPTAB Arterial Blood Gas Puncture Site Left Radial Arterial Blood Carboxyhemoglobin 0 Arterial Blood Methemoglobin 0.5 Blood Gas A-a O2 Differential 98.9 H Oxyhemoglobin Percent 96.0 Total Hemoglobin 7.4 L Blood Gas Temperature 37.0 Blood Gas Modality NASAL CANNULA FiO2 33.0 Blood Gas Notified Whom RTR Blood Gas Notified Time 06/17/2017 5:08:04 AM Medications Medications Current Medications Ascorbic Acid (Vitamin C) 500 mg DAILY PO Last administered on 06/17/17 08:17 ; Admin Dose 500 MG; Start 06/13/17 at 09:00 Atorvastatin Calcium (Lipitor) 20 mg QHS PO Last administered on 06/16/17 20: 34; Admin Dose 20 MG; Start 06/12/17 at 21:00 Finasteride (Proscar) 5 mg DAILY PO Last administered on 06/17/17 08:17; Admin Dose 5 MG; Start 06/13/17 at 09:00 Gabapentin (Neurontin) 300 mg TID PO Last administered on 06/17/17 08:17; Admin Dose 300 MG; Start 06/12/17 at 13:00 Saccharomyces Boulardii (Florastor) 250 mg BID PO Last administered on 08:17; Admin Dose 250 MG; Start 06/12/17 at 21:00 Tamsulosin HCl (Flomax) 0.8 mg HS PO Last administered on 06/16/17 20:34; Admin Dose 0.8 MG; Start 06/12/17 at 21:00 Ondansetron HCl (Zofran Inj) 4 mg Q6H PRN IV NAUSEA AND/OR VOMITING; Start at 12:30 Acetaminophen (Tylenol Tab) 650 mg Q6H PRN PO PAIN LEVEL 1-3 OR FEVER; Start at 12:30 Acetaminophen (Tylenol Supp) 650 mg Q6H PRN [place] PAIN LEVEL 1-3 OR FEVER; Start 06/12/17 at 12:30 Acetaminophen/ Hydrocodone Bitart ([place] (5/325)) 1 tab Q6H PRN PO MODERATE PAIN LEVEL 4-6 Last administered on 06/13/17 08:36; Admin Dose 1 TAB; Start at 12:30 Acetaminophen/ Hydrocodone Bitart ([place] (5/325)) 2 tab Q6H PRN PO SEVERE PAIN LEVEL 7-10; Start 06/12/17 at 12:30 Morphine Sulfate (morphine) 2 mg Q4H PRN IV SEVERE PAIN LEVEL 7-10; Start 06/12 at 12:30 Docusate Sodium (Colace) 100 mg Q12H PRN PO CONSTIPATION; Start 06/12/17 at 12: 30 Magnesium Hydroxide (Milk Of Mag) 30 ml DAILY PRN PO CONSTIPATION; Start at 12:30 Bisacodyl (Dulcolax Supp) 10 mg DAILY PRN [place] CONSTIPATION; Start 06/12/17 at 12 :30 Morphine Sulfate 2 mg 2 mg Q2 PRN IV PAIN LEVEL 4-7 Last administered on 05:15; Admin Dose 2 MG; Start 06/12/17 at 14:30 Norepinephrine/ Dextrose (Levophed/D5W) 500 ml @ 1.87 mls/hr TITRATE IV Last administered on 06/13/17 14:11; Admin Dose 9.37 MLS/HR; Start 06/12/17 at 20:30 IV Flush 10 ml 10 ml PRN PRN IV IV PROTOCOL; Start 06/13/17 at 14:00 Meropenem/Sodium Chloride (Merrem 1 Gm/50 ml (Pmx)) 50 ml @ 100 mls/hr Q12 IVPB Last administered on 06/17/17 08:18; Admin Dose 100 MLS/HR; Start at 21:00 Pantoprazole (Protonix Iv) 40 mg BID@06,18 IV Last administered on 06/17/17 05 :18; Admin Dose 40 MG; Start 06/13/17 at 18:00 Ferrous Sulfate (Feosol Liquid Cup) 300 mg DAILY NGT Last administered on 08:17; Admin Dose 300 MG; Start 06/14/17 at 10:00 Amiodarone HCl (Cordarone) 400 mg TID PO Last administered on 06/17/17 08:45; Admin Dose 400 MG; Start 06/14/17 at 13:00 Mupirocin (Bactroban) 1 applic BID TOP Last administered on 06/17/17 11:11; Admin Dose 1 APPLIC; Start 06/14/17 at 21:00 Valproate Sodium (Depakene Liquid Cup) 500 mg DAILY NGT Last administered on 08:17; Admin Dose 500 MG; Start 06/14/17 at 16:00 Multivitamins 30 ml 30 ml DAILY NGT Last administered on 06/17/17 08:17; Admin Dose 30 ML; Start 06/15/17 at 09:30 Vancomycin HCl (Vancocin) 250 ml @ 125 mls/hr Q12H IVPB Last administered on 06/17/17 11:11; Admin Dose 125 MLS/HR; Start 06/15/17 at 22:00 Miscellaneous Information (*Rx Drug Level Order Reminder*) 1 ONCE ONCE XX ; Start 06/17/17 at 21:00; Stop 06/17/17 at 21:01 Rich Rader DO Jun 17, 2017 13:54
--- NOTE | 2017-06-17 14:03 | PN ---
Date/Time of Note Date/Time of Note DATE: 06/17/17 TIME: 14:00 Assessment/Plan VTE Prophylaxis VTE Prophylaxis Intervention: contraindicated Lines/Catheters IV [facility] P[facility] Line Central line still needed: Yes Urinary Cath still in place: Yes Reason Cath still needed: other (indicate) Assessment/Plan Chief Complaint/Hosp Course 1. Status post sepsis with underlying septic shock secondary to aspiration pneumonia and urinary tract infection. On antibiotics as per infectious diseases. 2. Acute respiratory failure. Hypoxic. Status post intubation and extubation. Continue inhaled bronchodilators. 3. Dysphagia. Continue aspiration precautions. Speech therapy evaluation. 4. Normocytic, normochromic anemia requiring blood transfusions. Etiology unclear. Gastroenterology on the case. On proton pump inhibitors. Pending iron panel. Pending stool for OB. 5. Atrial fibrillation with RVR. Status post evaluation by cardiology. On amiodarone. 6. Benign prostatic hypertrophy. Status post Lindsey catheter insertion by urology. Continue finasteride and tamsulosin. 7. Dementia. Continue supportive care. 8. Acute nonoliguric kidney injury. Most probably secondary to hemodynamics. Currently resolved. Status post evaluation by nephrology. 9. Seizure disorder. Continue anticonvulsants. 10. Fluids, electrolytes, and nutrition. N.p.o. until speech therapy evaluation. 11. DVT prophylaxis. Contraindicated. 12. Gastrointestinal prophylaxis. Proton pump inhibitors. 13. Plan. Continue antimicrobials. Transfer out of the intensive care unit. Critical CARE time: 35 minutes. Case discussed with Dr. Caruso. Problems: Subjective 24 Hr Interval Summary Free Text/Dictation Remains of pressors. Vital signs stable. Exam/Review of Systems Vital Signs Vitals Vital Signs Date Time Temp Pulse Resp B/P Pulse Ox O2 Delivery O2 Flow Rate FiO2 06/17/17 13:45 90 18 95 06/17/17 13:30 128/63 Nasal Cannula 06/17/17 13:15 3.0 06/17/17 12:15 98.4 06/16/17 11:40 30 Intake and Output 06/16/17 06/16/17 06/17/17 15:00 23:00 07:00 Intake Total 660 ml 225 ml 125 ml Output Total 820 ml 290 ml 495 ml Balance -160 ml -65 ml -370 ml Exam General: Adequately build 72 year-old male lying in bed in no apparent distress. HEENT: Normocephalic, atraumatic. Eyes: Anicteric sclerae, conjunctivae clear. ENT: Nasal septum midline, oral mucosa is dry. Poor dentition. Neck supple, JVD noticed. Respiratory: Bilaterally diminished breath sounds. Bilaterally diminished breath sounds. Use of accessory muscles of respiration. B/L coarse rales. Cardiovascular: S1, S2 heard. Abdomen: Soft, nontender, and nondistended. Bowel sounds positive in all 4 quadrants. Genitourinary: Deferred. Extremities: No cyanosis, no clubbing, no edema. Peripheral pulses palpable. Neurologic: The patient is awake and alert. Results Result Diagram: 06/17/17 0400 06/17/17 0400 Results 24 hrs Laboratory Tests Test 06/17/17 04:00 06/17/17 05:00 White Blood Count 8.7 Red Blood Count 2.34 L Hemoglobin 6.9 *L Hematocrit 22.5 L Mean Corpuscular Volume 96.2 Mean Corpuscular Hemoglobin 29.5 Mean Corpuscular Hemoglobin Concent 30.7 L Red Cell Distribution Width 18.2 H Platelet Count 349 Mean Platelet Volume 12.5 H Neutrophils % 73.6 Lymphocytes % 13.9 L Monocytes % 9.5 Eosinophils % 2.0 Basophils % 0.3 Nucleated Red Blood Cells % 0.0 Neutrophils # 6.4 Lymphocytes # 1.2 Monocytes # 0.8 Eosinophils # 0.2 Basophils # 0.0 Nucleated Red Blood Cells # 0.0 Sodium Level 146 H Potassium Level 3.5 Chloride Level 114 H Carbon Dioxide Level 27 Anion Gap 9 Blood Urea Nitrogen 18 Creatinine 1.09 Glucose Level 104 Calcium Level 7.9 L Blood Gas Specimen Source Blood arterial Arterial Blood Date Drawn 06/17/2017 4:48:51 AM Arterial Blood pH (Temp corrected) 7.459 H Arterial Blood pCO2 (Temp correct) 37.7 Arterial Blood pO2 (Temp corrected) 92.4 H Arterial Blood HCO3 26.2 H Arterial Blood Base Excess 2.2 Arterial Blood Oxygen Saturation 96.5 Vishal Test ACCEPTAB Arterial Blood Gas Puncture Site Left Radial Arterial Blood Carboxyhemoglobin 0 Arterial Blood Methemoglobin 0.5 Blood Gas A-a O2 Differential 98.9 H Oxyhemoglobin Percent 96.0 Total Hemoglobin 7.4 L Blood Gas Temperature 37.0 Blood Gas Modality NASAL CANNULA FiO2 33.0 Blood Gas Notified Whom RTR Blood Gas Notified Time 06/17/2017 5:08:04 AM Medications Medications Current Medications Ascorbic Acid (Vitamin C) 500 mg DAILY PO Last administered on 06/17/17 08:17 ; Admin Dose 500 MG; Start 06/13/17 at 09:00 Atorvastatin Calcium (Lipitor) 20 mg QHS PO Last administered on 06/16/17 20: 34; Admin Dose 20 MG; Start 06/12/17 at 21:00 Finasteride (Proscar) 5 mg DAILY PO Last administered on 06/17/17 08:17; Admin Dose 5 MG; Start 06/13/17 at 09:00 Gabapentin (Neurontin) 300 mg TID PO Last administered on 06/17/17 08:17; Admin Dose 300 MG; Start 06/12/17 at 13:00 Saccharomyces Boulardii (Florastor) 250 mg BID PO Last administered on 08:17; Admin Dose 250 MG; Start 06/12/17 at 21:00 Tamsulosin HCl (Flomax) 0.8 mg HS PO Last administered on 06/16/17 20:34; Admin Dose 0.8 MG; Start 06/12/17 at 21:00 Ondansetron HCl (Zofran Inj) 4 mg Q6H PRN IV NAUSEA AND/OR VOMITING; Start at 12:30 Acetaminophen (Tylenol Tab) 650 mg Q6H PRN PO PAIN LEVEL 1-3 OR FEVER; Start at 12:30 Acetaminophen (Tylenol Supp) 650 mg Q6H PRN [place] PAIN LEVEL 1-3 OR FEVER; Start 06/12/17 at 12:30 Acetaminophen/ Hydrocodone Bitart ([place] (5/325)) 1 tab Q6H PRN PO MODERATE PAIN LEVEL 4-6 Last administered on 06/13/17 08:36; Admin Dose 1 TAB; Start at 12:30 Acetaminophen/ Hydrocodone Bitart ([place] (5/325)) 2 tab Q6H PRN PO SEVERE PAIN LEVEL 7-10; Start 06/12/17 at 12:30 Morphine Sulfate (morphine) 2 mg Q4H PRN IV SEVERE PAIN LEVEL 7-10; Start 06/12 at 12:30 Docusate Sodium (Colace) 100 mg Q12H PRN PO CONSTIPATION; Start 06/12/17 at 12: 30 Magnesium Hydroxide (Milk Of Mag) 30 ml DAILY PRN PO CONSTIPATION; Start at 12:30 Bisacodyl (Dulcolax Supp) 10 mg DAILY PRN [place] CONSTIPATION; Start 06/12/17 at 12 :30 Morphine Sulfate 2 mg 2 mg Q2 PRN IV PAIN LEVEL 4-7 Last administered on 05:15; Admin Dose 2 MG; Start 06/12/17 at 14:30 Norepinephrine/ Dextrose (Levophed/D5W) 500 ml @ 1.87 mls/hr TITRATE IV Last administered on 06/13/17 14:11; Admin Dose 9.37 MLS/HR; Start 06/12/17 at 20:30 IV Flush 10 ml 10 ml PRN PRN IV IV PROTOCOL; Start 06/13/17 at 14:00 Meropenem/Sodium Chloride (Merrem 1 Gm/50 ml (Pmx)) 50 ml @ 100 mls/hr Q12 IVPB Last administered on 06/17/17 08:18; Admin Dose 100 MLS/HR; Start at 21:00 Pantoprazole (Protonix Iv) 40 mg BID@06,18 IV Last administered on 06/17/17 05 :18; Admin Dose 40 MG; Start 06/13/17 at 18:00 Ferrous Sulfate (Feosol Liquid Cup) 300 mg DAILY NGT Last administered on 08:17; Admin Dose 300 MG; Start 06/14/17 at 10:00 Mupirocin (Bactroban) 1 applic BID TOP Last administered on 06/17/17 11:11; Admin Dose 1 APPLIC; Start 06/14/17 at 21:00 Valproate Sodium (Depakene Liquid Cup) 500 mg DAILY NGT Last administered on 08:17; Admin Dose 500 MG; Start 06/14/17 at 16:00 Multivitamins 30 ml 30 ml DAILY NGT Last administered on 06/17/17 08:17; Admin Dose 30 ML; Start 06/15/17 at 09:30 Vancomycin HCl (Vancocin) 250 ml @ 125 mls/hr Q12H IVPB Last administered on 06/17/17 11:11; Admin Dose 125 MLS/HR; Start 06/15/17 at 22:00 Miscellaneous Information (*Rx Drug Level Order Reminder*) 1 ONCE ONCE XX ; Start 06/17/17 at 21:00; Stop 06/17/17 at 21:01 Amiodarone HCl (Cordarone) 400 mg BID PO ; Start 06/17/17 at 21:00; Status ALEXANDRE CHRISTOPHER NP Jun 17, 2017 14:03
--- NOTE | 2017-06-17 15:14 | CONS ---
Date/Time of Note Date/Time of Note DATE: 06/17/17 TIME: 15:12 Assessment/Plan Assessment/Plan Additional Assessment/Plan 72 yo male with 1) Severe Sepsis-Resolved 2) Pna, Possible aspiration 3) Resp Failure, vent- Resolved 4) DEEP in the setting of above, Urinary retention. Resolved 5) Likely BPH 6) Severe Anemia DEEP Resolved Renal function stable. Cont gentle IVFs Repeat Chemistry in am., Keep MAPs>65mmHg AVoid Nephrotoxic Rx, avoid hypotension. Will cont to closely follow along with you in ICU setting. Consultation Date/Type/Reason Admit Date/Time Jun 12, 2017 at 11:47 Initial Consult Date 06/12/17 Type of Consultation: Renal Referring Provider: LETI LOPEZ 24 HR Interval Summary Free Text/Dictation Good UO, Off pressors, Receiving PRBC. Subjective hx not possible: pt critical status Constitutional: requiring O2 Exam/Review of Systems Vital Signs Vitals Vital Signs Date Time Temp Pulse Resp B/P Pulse Ox O2 Delivery O2 Flow Rate FiO2 06/17/17 13:45 90 18 95 06/17/17 13:30 128/63 Nasal Cannula 06/17/17 13:15 3.0 06/17/17 12:15 98.4 06/16/17 11:40 30 Intake and Output 06/16/17 06/16/17 06/17/17 15:00 23:00 07:00 Intake Total 660 ml 225 ml 125 ml Output Total 820 ml 290 ml 495 ml Balance -160 ml -65 ml -370 ml Exam Constitutional: frail, No distress ENMT: mucosa pink and moist Neck: No jvd Respiratory: No diminished breath sounds, No labored breathing Cardiovascular: regular rate and rhythm, No edema Gastrointestinal: soft Neurological: lethargic Skin: No diaphoresis Results Result Diagram: 06/17/17 0400 06/17/17 0400 Results 24 hrs Laboratory Tests Test 06/17/17 04:00 06/17/17 05:00 White Blood Count 8.7 Red Blood Count 2.34 L Hemoglobin 6.9 *L Hematocrit 22.5 L Mean Corpuscular Volume 96.2 Mean Corpuscular Hemoglobin 29.5 Mean Corpuscular Hemoglobin Concent 30.7 L Red Cell Distribution Width 18.2 H Platelet Count 349 Mean Platelet Volume 12.5 H Neutrophils % 73.6 Lymphocytes % 13.9 L Monocytes % 9.5 Eosinophils % 2.0 Basophils % 0.3 Nucleated Red Blood Cells % 0.0 Neutrophils # 6.4 Lymphocytes # 1.2 Monocytes # 0.8 Eosinophils # 0.2 Basophils # 0.0 Nucleated Red Blood Cells # 0.0 Sodium Level 146 H Potassium Level 3.5 Chloride Level 114 H Carbon Dioxide Level 27 Anion Gap 9 Blood Urea Nitrogen 18 Creatinine 1.09 Glucose Level 104 Calcium Level 7.9 L Blood Gas Specimen Source Blood arterial Arterial Blood Date Drawn 06/17/2017 4:48:51 AM Arterial Blood pH (Temp corrected) 7.459 H Arterial Blood pCO2 (Temp correct) 37.7 Arterial Blood pO2 (Temp corrected) 92.4 H Arterial Blood HCO3 26.2 H Arterial Blood Base Excess 2.2 Arterial Blood Oxygen Saturation 96.5 Vishal Test ACCEPTAB Arterial Blood Gas Puncture Site Left Radial Arterial Blood Carboxyhemoglobin 0 Arterial Blood Methemoglobin 0.5 Blood Gas A-a O2 Differential 98.9 H Oxyhemoglobin Percent 96.0 Total Hemoglobin 7.4 L Blood Gas Temperature 37.0 Blood Gas Modality NASAL CANNULA FiO2 33.0 Blood Gas Notified Whom RTR Blood Gas Notified Time 06/17/2017 5:08:04 AM Medications Medications Current Medications Ascorbic Acid (Vitamin C) 500 mg DAILY PO Last administered on 06/17/17 08:17 ; Admin Dose 500 MG; Start 06/13/17 at 09:00 Atorvastatin Calcium (Lipitor) 20 mg QHS PO Last administered on 06/16/17 20: 34; Admin Dose 20 MG; Start 06/12/17 at 21:00 Finasteride (Proscar) 5 mg DAILY PO Last administered on 06/17/17 08:17; Admin Dose 5 MG; Start 06/13/17 at 09:00 Gabapentin (Neurontin) 300 mg TID PO Last administered on 06/17/17 14:25; Admin Dose 300 MG; Start 06/12/17 at 13:00 Saccharomyces Boulardii (Florastor) 250 mg BID PO Last administered on 08:17; Admin Dose 250 MG; Start 06/12/17 at 21:00 Tamsulosin HCl (Flomax) 0.8 mg HS PO Last administered on 06/16/17 20:34; Admin Dose 0.8 MG; Start 06/12/17 at 21:00 Ondansetron HCl (Zofran Inj) 4 mg Q6H PRN IV NAUSEA AND/OR VOMITING; Start at 12:30 Acetaminophen (Tylenol Tab) 650 mg Q6H PRN PO PAIN LEVEL 1-3 OR FEVER; Start at 12:30 Acetaminophen (Tylenol Supp) 650 mg Q6H PRN [place] PAIN LEVEL 1-3 OR FEVER; Start 06/12/17 at 12:30 Acetaminophen/ Hydrocodone Bitart ([place] (5/325)) 1 tab Q6H PRN PO MODERATE PAIN LEVEL 4-6 Last administered on 06/13/17 08:36; Admin Dose 1 TAB; Start at 12:30 Acetaminophen/ Hydrocodone Bitart ([place] (5/325)) 2 tab Q6H PRN PO SEVERE PAIN LEVEL 7-10; Start 06/12/17 at 12:30 Morphine Sulfate (morphine) 2 mg Q4H PRN IV SEVERE PAIN LEVEL 7-10; Start 06/12 at 12:30 Docusate Sodium (Colace) 100 mg Q12H PRN PO CONSTIPATION; Start 06/12/17 at 12: 30 Magnesium Hydroxide (Milk Of Mag) 30 ml DAILY PRN PO CONSTIPATION; Start at 12:30 Bisacodyl (Dulcolax Supp) 10 mg DAILY PRN [place] CONSTIPATION; Start 06/12/17 at 12 :30 Morphine Sulfate 2 mg 2 mg Q2 PRN IV PAIN LEVEL 4-7 Last administered on 05:15; Admin Dose 2 MG; Start 06/12/17 at 14:30 Norepinephrine/ Dextrose (Levophed/D5W) 500 ml @ 1.87 mls/hr TITRATE IV Last administered on 06/13/17 14:11; Admin Dose 9.37 MLS/HR; Start 06/12/17 at 20:30 IV Flush 10 ml 10 ml PRN PRN IV IV PROTOCOL; Start 06/13/17 at 14:00 Meropenem/Sodium Chloride (Merrem 1 Gm/50 ml (Pmx)) 50 ml @ 100 mls/hr Q12 IVPB Last administered on 06/17/17 08:18; Admin Dose 100 MLS/HR; Start at 21:00 Pantoprazole (Protonix Iv) 40 mg BID@06,18 IV Last administered on 06/17/17 05 :18; Admin Dose 40 MG; Start 06/13/17 at 18:00 Ferrous Sulfate (Feosol Liquid Cup) 300 mg DAILY NGT Last administered on 08:17; Admin Dose 300 MG; Start 06/14/17 at 10:00 Mupirocin (Bactroban) 1 applic BID TOP Last administered on 06/17/17 11:11; Admin Dose 1 APPLIC; Start 06/14/17 at 21:00 Valproate Sodium (Depakene Liquid Cup) 500 mg DAILY NGT Last administered on 08:17; Admin Dose 500 MG; Start 06/14/17 at 16:00 Multivitamins 30 ml 30 ml DAILY NGT Last administered on 06/17/17 08:17; Admin Dose 30 ML; Start 06/15/17 at 09:30 Vancomycin HCl (Vancocin) 250 ml @ 125 mls/hr Q12H IVPB Last administered on 06/17/17 11:11; Admin Dose 125 MLS/HR; Start 06/15/17 at 22:00 Miscellaneous Information (*Rx Drug Level Order Reminder*) 1 ONCE ONCE XX ; Start 06/17/17 at 21:00; Stop 06/17/17 at 21:01 Amiodarone HCl (Cordarone) 400 mg BID PO ; Start 06/17/17 at 21:00 ELVA VIDAL MD Jun 17, 2017 15:14
[2017-06-17 15:23] LABS: IRON 54 ug/dl (35-150)
[2017-06-17 15:32] LABS: TOTAL IRON BINDING CAPACITY 190 ug/dl (241-421)
--- NOTE | 2017-06-17 17:14 | PN ---
DATE: 06/17/2017 SUBJECTIVE DATA: The patient appears to be more comfortable and he denies having any pain. There is a Lindsey catheter still in place. SUBJECTIVE DATA: Temperature is 98.4, pulse is 84, respirations 19, blood pressure 128/77. ABDOMEN: Soft, and a Lindsey catheter is in place and draining clear urine. LABORATORY DATA: CBC shows a white count of 8.7, hemoglobin is 6.9, hematocrit 22.5. The patient is going to be getting blood transfusions. The BUN is 18, creatinine 1.09. Sodium 146, potassium 3.5, chloride 114, CO2 27. The urine culture showed Proteus mirabilis sensitive to ampicillin and cefotaxime, resistant to Cipro. The patient is on meropenem. IMPRESSION: Urinary tract infection. The patient is responding well to Meropenem. The patient does have severe urethral stricture and the catheter is in place and draining a good to clear urine. PLAN: Keep the Lindsey catheter in for now until the patient is more stable. No need to monitor his urine output. If we take the catheter out it may be difficult for the nurses to insert a new catheter because of the urethral strictures. Dictated By: Tarun Solis MD /walker/isabel /Document#: [id number]
[2017-06-17] MEDS: TAMSULOSIN (SR) 0.4 MG CAP PO SCH (20:16)
[2017-06-17] MEDS: ATORVASTATIN 20 MG TAB PO SCH (20:17)
[2017-06-17 21:02] LABS: HEMATOCRIT 27.4 % (42.0-52.0); HEMOGLOBIN 8.9 g/dl (14.0-18.0)
[2017-06-18] VITALS (12 sets, daily range): BP systolic 124–156; BP diastolic 61–72; PULSE 69–88; RESP 18–28
[2017-06-18] MEDS: ALBUTEROL/IPRATROPIUM (NEB) 3 ML AMP NEB SCH ×6 (00:06→20:34)
[2017-06-18] MEDS: PANTOPRAZOLE 40 MG INJ IV SCH ×2 (05:39→17:17)
--- NOTE | 2017-06-18 06:23 | CONS ---
Date/Time of Note Date/Time of Note DATE: 06/18/17 TIME: 06:23 Consultation Date/Type/Reason Admit Date/Time Jun 12, 2017 at 11:47 Initial Consult Date 06/12/17 Type of Consultation: Renal Referring Provider: LETI LOPEZ Exam/Review of Systems Vital Signs Vitals Vital Signs Date Time Temp Pulse Resp B/P Pulse Ox O2 Delivery O2 Flow Rate FiO2 06/18/17 05:26 79 20 96 Nasal Cannula 5.0 06/18/17 03:33 98.0 124/70 06/16/17 11:40 30 Intake and Output 06/17/17 06/17/17 06/18/17 15:00 23:00 07:00 Intake Total 700 ml 510 ml Output Total 480 ml 560 ml Balance 220 ml -50 ml Results Result Diagram: 06/17/17205306/17/17399 Results 24 hrs Laboratory Tests Test 06/17/17 14:43 06/17/17 20:54 06/18/17 05:30 Iron Level 54 Total Iron Binding Capacity 190 L Percent Iron Saturation 28 Ferritin 507.0 H Hemoglobin 8.9 #L Hematocrit 27.4 #L Vancomycin Level Trough 16.5 Lab Scanned Report BLOOD TRANSFUSION Medications Medications Current Medications Ascorbic Acid (Vitamin C) 500 mg DAILY PO Last administered on 06/17/17 08:17 ; Admin Dose 500 MG; Start 06/13/17 at 09:00 Atorvastatin Calcium (Lipitor) 20 mg QHS PO Last administered on 06/17/17 20: 17; Admin Dose 20 MG; Start 06/12/17 at 21:00 Finasteride (Proscar) 5 mg DAILY PO Last administered on 06/17/17 08:17; Admin Dose 5 MG; Start 06/13/17 at 09:00 Gabapentin (Neurontin) 300 mg TID PO Last administered on 06/17/17 20:16; Admin Dose 300 MG; Start 06/12/17 at 13:00 Saccharomyces Boulardii (Florastor) 250 mg BID PO Last administered on 20:16; Admin Dose 250 MG; Start 06/12/17 at 21:00 Tamsulosin HCl (Flomax) 0.8 mg HS PO Last administered on 06/17/17 20:16; Admin Dose 0.8 MG; Start 06/12/17 at 21:00 Ondansetron HCl (Zofran Inj) 4 mg Q6H PRN IV NAUSEA AND/OR VOMITING; Start at 12:30 Acetaminophen (Tylenol Tab) 650 mg Q6H PRN PO PAIN LEVEL 1-3 OR FEVER; Start at 12:30 Acetaminophen (Tylenol Supp) 650 mg Q6H PRN IN PAIN LEVEL 1-3 OR FEVER; Start 06/12/17 at 12:30 Acetaminophen/ Hydrocodone Bitart ([place] (5/325)) 1 tab Q6H PRN PO MODERATE PAIN LEVEL 4-6 Last administered on 06/13/17 08:36; Admin Dose 1 TAB; Start at 12:30 Acetaminophen/ Hydrocodone Bitart ([place] (5/325)) 2 tab Q6H PRN PO SEVERE PAIN LEVEL 7-10; Start 06/12/17 at 12:30 Morphine Sulfate (morphine) 2 mg Q4H PRN IV SEVERE PAIN LEVEL 7-10; Start 06/12 at 12:30 Docusate Sodium (Colace) 100 mg Q12H PRN PO CONSTIPATION; Start 06/12/17 at 12: 30 Magnesium Hydroxide (Milk Of Mag) 30 ml DAILY PRN PO CONSTIPATION; Start at 12:30 Bisacodyl (Dulcolax Supp) 10 mg DAILY PRN IN CONSTIPATION; Start 06/12/17 at 12 :30 Morphine Sulfate (morphine) 2 mg Q2 PRN IV PAIN LEVEL 4-7 Last administered on 06/13/17 05:15; Admin Dose 2 MG; Start 06/12/17 at 14:30 IV Flush 10 ml 10 ml PRN PRN IV IV PROTOCOL; Start 06/13/17 at 14:00 Meropenem/Sodium Chloride (Merrem 1 Gm/50 ml (Pmx)) 50 ml @ 100 mls/hr Q12 IVPB Last administered on 06/17/17 20:30; Admin Dose 100 MLS/HR; Start at 21:00 Pantoprazole (Protonix Iv) 40 mg BID@06,18 IV Last administered on 06/18/17 05 :39; Admin Dose 40 MG; Start 06/13/17 at 18:00 Ferrous Sulfate (Feosol Liquid Cup) 300 mg DAILY NGT Last administered on 08:17; Admin Dose 300 MG; Start 06/14/17 at 10:00 Mupirocin (Bactroban) 1 applic BID TOP Last administered on 06/17/17 20:17; Admin Dose 1 APPLIC; Start 06/14/17 at 21:00 Valproate Sodium (Depakene Liquid Cup) 500 mg DAILY NGT Last administered on 08:17; Admin Dose 500 MG; Start 06/14/17 at 16:00 Multivitamins 30 ml 30 ml DAILY NGT Last administered on 06/17/17 08:17; Admin Dose 30 ML; Start 06/15/17 at 09:30 Vancomycin HCl (Vancocin) 250 ml @ 125 mls/hr Q12H IVPB Last administered on 06/17/17 22:28; Admin Dose 125 MLS/HR; Start 06/15/17 at 22:00 Amiodarone HCl (Cordarone) 400 mg BID PO Last administered on 06/17/17 20:17; Admin Dose 400 MG; Start 06/17/17 at 21:00 ELVA VIDAL MD Jun 18, 2017 06:23
--- NOTE | 2017-06-18 07:31 | PN ---
Date/Time of Note Date/Time of Note DATE: 06/18/17 TIME: 07:30 Assessment/Plan VTE Prophylaxis VTE Prophylaxis Intervention: contraindicated Lines/Catheters IV [facility] Type (from [facility] PICC Line Central line still needed: Yes Urinary Cath still in place: Yes Reason Cath still needed: other (indicate) Assessment/Plan Chief Complaint/Hosp Course 1. Status post sepsis with underlying septic shock secondary to aspiration pneumonia and urinary tract infection. On antibiotics as per infectious diseases. 2. Acute respiratory failure. Hypoxic. Status post intubation and extubation. Continue inhaled bronchodilators. 3. Dysphagia. Continue aspiration precautions. Speech therapy evaluation failed. ST to re-evaluate the patient. 4. Normocytic, normochromic anemia requiring blood transfusions. Etiology unclear. Gastroenterology on the case. On proton pump inhibitors. Iron panel showing no significant iron deficiency. 5. Atrial fibrillation with RVR. Status post evaluation by cardiology. On amiodarone. 6. Benign prostatic hypertrophy. Status post Lindsey catheter insertion by urology. Continue finasteride and tamsulosin. 7. Dementia. Continue supportive care. 8. Acute nonoliguric kidney injury. Most probably secondary to hemodynamics. Currently resolved. Status post evaluation by nephrology. 9. Seizure disorder. Continue anticonvulsants. 10. Fluids, electrolytes, and nutrition. N.p.o. 11. DVT prophylaxis. Contraindicated. 12. Gastrointestinal prophylaxis. Proton pump inhibitors. 13. Plan. Continue antimicrobials. Add free water via NGT for hypernatremia. Will address the plan of care with the patient's family. Involve social media senior associate on the case. Case discussed with Dr. Caruso. Problems: Subjective 24 Hr Interval Summary Free Text/Dictation Low grade fever in the AM. Failed swallow evaluation. Exam/Review of Systems Vital Signs Vitals Vital Signs Date Time Temp Pulse Resp B/P Pulse Ox O2 Delivery O2 Flow Rate FiO2 06/18/17 05:26 79 20 96 Nasal Cannula 5.0 06/18/17 03:33 98.0 124/70 06/16/17 11:40 30 Intake and Output 06/17/17 06/17/17 06/18/17 15:00 23:00 07:00 Intake Total 700 ml 510 ml 40 ml Output Total 480 ml 560 ml 1500 ml Balance 220 ml -50 ml -1460 ml Exam General: Adequately build 72 year-old male lying in bed in no apparent distress. HEENT: Normocephalic, atraumatic. Eyes: Anicteric sclerae, conjunctivae clear. ENT: Nasal septum midline, oral mucosa is dry. Poor dentition. Neck supple, JVD noticed. Respiratory: Bilaterally diminished breath sounds. Use of accessory muscles of respiration. B/L coarse rales. Cardiovascular: S1, S2 heard. Abdomen: Soft, nontender, and nondistended. Bowel sounds positive in all 4 quadrants. Genitourinary: Deferred. Extremities: No cyanosis, no clubbing, no edema. Peripheral pulses palpable. Neurologic: The patient is awake and alert. Results Result Diagram: 06/17/17205306/17/17399 Results 24 hrs Laboratory Tests Test 06/17/17 14:43 06/17/17 20:54 06/18/17 05:30 Iron Level 54 Total Iron Binding Capacity 190 L Percent Iron Saturation 28 Ferritin 507.0 H Hemoglobin 8.9 #L Hematocrit 27.4 #L Vancomycin Level Trough 16.5 Lab Scanned Report BLOOD TRANSFUSION Medications Medications Current Medications Ascorbic Acid (Vitamin C) 500 mg DAILY PO Last administered on 06/17/17 08:17 ; Admin Dose 500 MG; Start 06/13/17 at 09:00 Atorvastatin Calcium (Lipitor) 20 mg QHS PO Last administered on 06/17/17: 17; Admin Dose 20 MG; Start 06/12/17 at 21:00 Finasteride (Proscar) 5 mg DAILY PO Last administered on 06/17/17 08:17; Admin Dose 5 MG; Start 06/13/17 at 09:00 Gabapentin (Neurontin) 300 mg TID PO Last administered on 06/17/17 20:16; Admin Dose 300 MG; Start 06/12/17 at 13:00 Saccharomyces Boulardii (Florastor) 250 mg BID PO Last administered on 20:16; Admin Dose 250 MG; Start 06/12/17 at 21:00 Tamsulosin HCl (Flomax) 0.8 mg HS PO Last administered on 06/17/17 20:16; Admin Dose 0.8 MG; Start 06/12/17 at 21:00 Ondansetron HCl (Zofran Inj) 4 mg Q6H PRN IV NAUSEA AND/OR VOMITING; Start at 12:30 Acetaminophen (Tylenol Tab) 650 mg Q6H PRN PO PAIN LEVEL 1-3 OR FEVER; Start at 12:30 Acetaminophen (Tylenol Supp) 650 mg Q6H PRN [place] PAIN LEVEL 1-3 OR FEVER; Start 06/12/17 at 12:30 Acetaminophen/ Hydrocodone Bitart ([place] (5/325)) 1 tab Q6H PRN PO MODERATE PAIN LEVEL 4-6 Last administered on 06/13/17 08:36; Admin Dose 1 TAB; Start at 12:30 Acetaminophen/ Hydrocodone Bitart ([place] (5/325)) 2 tab Q6H PRN PO SEVERE PAIN LEVEL 7-10; Start 06/12/17 at 12:30 Morphine Sulfate (morphine) 2 mg Q4H PRN IV SEVERE PAIN LEVEL 7-10; Start 06/12 at 12:30 Docusate Sodium (Colace) 100 mg Q12H PRN PO CONSTIPATION; Start 06/12/17 at 12: 30 Magnesium Hydroxide (Milk Of Mag) 30 ml DAILY PRN PO CONSTIPATION; Start at 12:30 Bisacodyl (Dulcolax Supp) 10 mg DAILY PRN ID CONSTIPATION; Start 06/12/17 at 12 :30 Morphine Sulfate (morphine) 2 mg Q2 PRN IV PAIN LEVEL 4-7 Last administered on 06/13/17 05:15; Admin Dose 2 MG; Start 06/12/17 at 14:30 IV Flush 10 ml 10 ml PRN PRN IV IV PROTOCOL; Start 06/13/17 at 14:00 Meropenem/Sodium Chloride (Merrem 1 Gm/50 ml (Pmx)) 50 ml @ 100 mls/hr Q12 IVPB Last administered on 06/17/17 20:30; Admin Dose 100 MLS/HR; Start at 21:00 Pantoprazole (Protonix Iv) 40 mg BID@06,18 IV Last administered on 06/18/17 05 :39; Admin Dose 40 MG; Start 06/13/17 at 18:00 Ferrous Sulfate (Feosol Liquid Cup) 300 mg DAILY NGT Last administered on 08:17; Admin Dose 300 MG; Start 06/14/17 at 10:00 Mupirocin (Bactroban) 1 applic BID TOP Last administered on 06/17/17 20:17; Admin Dose 1 APPLIC; Start 06/14/17 at 21:00 Valproate Sodium (Depakene Liquid Cup) 500 mg DAILY NGT Last administered on 08:17; Admin Dose 500 MG; Start 06/14/17 at 16:00 Multivitamins 30 ml 30 ml DAILY NGT Last administered on 06/17/17 08:17; Admin Dose 30 ML; Start 06/15/17 at 09:30 Vancomycin HCl (Vancocin) 250 ml @ 125 mls/hr Q12H IVPB Last administered on 06/17/17 22:28; Admin Dose 125 MLS/HR; Start 06/15/17 at 22:00 Amiodarone HCl (Cordarone) 400 mg BID PO Last administered on 06/17/17 20:17; Admin Dose 400 MG; Start 06/17/17 at 21:00 ALEXANDRE ULLOA NP Jun 18, 2017 07:31
[2017-06-18 08:14] LABS: BASOPHILS % 0.4 % (0.0-2.0); EOSINOPHILS # 0.2 10^3/ul (0.0-0.5); EOSINOPHILS % 1.5 % (0.0-7.0); HEMATOCRIT 28.7 % (42.0-52.0); LYMPHOCYTES % 9.6 % (15.0-51.0); MEAN CORPUSCULAR HEMOGLOBIN 29.2 pg (29.0-33.0); MEAN CORPUSCULAR HGB CONC 31.4 g/dl (32.0-37.0); MEAN CORPUSCULAR VOLUME 93.2 fl (82.0-101.0); MEAN PLATELET VOLUME 11.8 fl (7.4-10.4); MONOCYTE # 1.2 10^3/ul (0.3-0.9); MONOCYTES % 10.7 % (0.0-11.0); NEUTROPHIL # 8.2 10^3/ul (1.6-7.5); NEUTROPHILS % 76.7 % (39.0-77.0); PLATELET COUNT 362 10^3/UL (140-415); RED BLOOD COUNT 3.08 10^6/ul (4.70-6.10); WHITE BLOOD COUNT 10.7 10^3/ul (4.8-10.8)
[2017-06-18 08:32] LABS: MAGNESIUM 2.1 mg/dl (1.7-2.5); PHOSPHORUS 2.8 mg/dl (2.5-4.9)
[2017-06-18 08:33] LABS: CALCIUM 8.2 mg/dl (8.4-10.2); CREATININE 0.92 mg/dl (0.61-1.24); POTASSIUM 3.6 mmol/L (3.5-5.1)
[2017-06-18] MEDS: VALPROIC ACID LIQUID CUP 250 MG/5 ML CUP NGT SCH (08:54)
[2017-06-18] MEDS: FERROUS SULFATE 60 MG/ML 5ML CUP NGT SCH (08:54)
[2017-06-18] MEDS: FINASTERIDE 5 MG TAB PO SCH (08:54)
[2017-06-18] MEDS: MULTIVITAMINS 30 ML CUP NGT SCH (08:54)
[2017-06-18] MEDS: GABAPENTIN 300 MG CAP PO SCH ×3 (08:54→21:35)
[2017-06-18] MEDS: SACCHAROMYCES BOULARDII 250 MG CAP PO SCH ×2 (08:54→21:34)
[2017-06-18] MEDS: ASCORBIC ACID 500 MG TAB PO SCH (08:54)
[2017-06-18] MEDS: MEROPENEM 1 GM/50ML(PMX) 50 ML IVPB SCH ×2 (08:55→21:35)
[2017-06-18] MEDS: AMIODARONE 200 MG TAB PO SCH ×2 (08:55→21:36)
[2017-06-18] MEDS: MUPIROCIN 2% 22 GM OINT TOP SCH ×2 (09:00→21:50)
[2017-06-18] MEDS: VANCOMYCIN 1 GM in NS 250 ML IVPB SCH ×2 (11:39→22:28)
[2017-06-18] MEDS ORDERED: POTASSIUM CHLORIDE 30 MEQ in SOD CHLORIDE 0.9% 150 ML IVPB ONE (12:00)
--- NOTE | 2017-06-18 12:05 | CONS ---
Date/Time of Note Date/Time of Note DATE: 06/18/17 TIME: 12:03 Assessment/Plan Assessment/Plan Additional Assessment/Plan Assessment and recommendations; 1. Patient admitted with pneumonia involving left lower lobe possibly aspiration. 2. Dementia. Continue current treatment. Consultation Date/Type/Reason Admit Date/Time Jun 12, 2017 at 11:47 Initial Consult Date 06/13/17 Type of Consultation: Pulmonary Referring Provider: LETI LOPEZ 24 HR Interval Summary Free Text/Dictation Patient condition remains stable. Remains awake and somewhat alert. Patient appears quite feeble and follows minimal commands like mouth opening. Still exhibiting profound generalized weakness. General exam; elderly male, awake, currently in no distress. Exam/Review of Systems Vital Signs Vitals Vital Signs Date Time Temp Pulse Resp B/P Pulse Ox O2 Delivery O2 Flow Rate FiO2 06/18/17 11:51 99.9 80 28 134/64 90 06/18/17 09:54 Nasal Cannula 3.0 06/16/17 11:40 30 Intake and Output 06/17/17 06/17/17 06/18/17 15:00 23:00 07:00 Intake Total 700 ml 510 ml 40 ml Output Total 480 ml 560 ml 1500 ml Balance 220 ml -50 ml -1460 ml Exam HEENT exam; supple neck, positive JVD. No lymphadenopathy. Midline trachea. No thyromegaly. Patient has a multiple carious teeth. Pupils are small bilaterally. Upper airway congestion is quite audible. Chest exam; scattered crackles bilaterally. S1-S2 audible, no murmurs. Abdomen exam; soft, no organomegaly. Bowel sounds audible. Extremities; no edema. JUDICIAL REGISTRAR exam; patient awake and follows very simple commands. Results Result Diagram: 06/18/17 0752 06/18/17 0752 Results 24 hrs Laboratory Tests Test 06/17/17 14:43 06/17/17 20:54 06/18/17 05:30 06/18/17 07:52 Iron Level 54 Total Iron Binding Capacity 190 L Percent Iron Saturation 28 Ferritin 507.0 H Hemoglobin 8.9 #L 9.0 L Hematocrit 27.4 #L 28.7 L Vancomycin Level Trough 16.5 Lab Scanned Report BLOOD TRANSFUSION White Blood Count 10.7 # Red Blood Count 3.08 #L Mean Corpuscular Volume 93.2 Mean Corpuscular Hemoglobin 29.2 Mean Corpuscular Hemoglobin Concent 31.4 L Red Cell Distribution Width 18.0 H Platelet Count 362 Mean Platelet Volume 11.8 H Neutrophils % 76.7 Lymphocytes % 9.6 L Monocytes % 10.7 Eosinophils % 1.5 Basophils % 0.4 Nucleated Red Blood Cells % 0.0 Neutrophils # 8.2 H Lymphocytes # 1.0 Monocytes # 1.2 H Eosinophils # 0.2 Basophils # 0.0 Nucleated Red Blood Cells # 0.0 Sodium Level 149 H Potassium Level 3.6 Chloride Level 116 H Carbon Dioxide Level 28 Anion Gap 9 Blood Urea Nitrogen 18 Creatinine 0.92 Glucose Level 110 Calcium Level 8.2 L Phosphorus Level 2.8 Magnesium Level 2.1 Medications Medications Current Medications Ascorbic Acid (Vitamin C) 500 mg DAILY PO Last administered on 06/18/17 08:54 ; Admin Dose 500 MG; Start 06/13/17 at 09:00 Atorvastatin Calcium (Lipitor) 20 mg QHS PO Last administered on 06/17/17 20: 17; Admin Dose 20 MG; Start 06/12/17 at 21:00 Finasteride (Proscar) 5 mg DAILY PO Last administered on 06/18/17 08:54; Admin Dose 5 MG; Start 06/13/17 at 09:00 Gabapentin (Neurontin) 300 mg TID PO Last administered on 06/18/17 08:54; Admin Dose 300 MG; Start 06/12/17 at 13:00 Saccharomyces Boulardii (Florastor) 250 mg BID PO Last administered on 08:54; Admin Dose 250 MG; Start 06/12/17 at 21:00 Tamsulosin HCl (Flomax) 0.8 mg HS PO Last administered on 06/17/17 20:16; Admin Dose 0.8 MG; Start 06/12/17 at 21:00 Ondansetron HCl (Zofran Inj) 4 mg Q6H PRN IV NAUSEA AND/OR VOMITING; Start at 12:30 Acetaminophen (Tylenol Tab) 650 mg Q6H PRN PO PAIN LEVEL 1-3 OR FEVER; Start at 12:30 Acetaminophen (Tylenol Supp) 650 mg Q6H PRN [place] PAIN LEVEL 1-3 OR FEVER; Start 06/12/17 at 12:30 Acetaminophen/ Hydrocodone Bitart ([place] (5/325)) 1 tab Q6H PRN PO MODERATE PAIN LEVEL 4-6 Last administered on 06/13/17 08:36; Admin Dose 1 TAB; Start at 12:30 Acetaminophen/ Hydrocodone Bitart ([place] (5/325)) 2 tab Q6H PRN PO SEVERE PAIN LEVEL 7-10; Start 06/12/17 at 12:30 Morphine Sulfate (morphine) 2 mg Q4H PRN IV SEVERE PAIN LEVEL 7-10; Start 06/12 at 12:30 Docusate Sodium (Colace) 100 mg Q12H PRN PO CONSTIPATION; Start 06/12/17 at 12: 30 Magnesium Hydroxide (Milk Of Mag) 30 ml DAILY PRN PO CONSTIPATION; Start at 12:30 Bisacodyl (Dulcolax Supp) 10 mg DAILY PRN [place] CONSTIPATION; Start 06/12/17 at 12 :30 Morphine Sulfate (morphine) 2 mg Q2 PRN IV PAIN LEVEL 4-7 Last administered on 06/13/17 05:15; Admin Dose 2 MG; Start 06/12/17 at 14:30 IV Flush 10 ml 10 ml PRN PRN IV IV PROTOCOL; Start 06/13/17 at 14:00 Meropenem/Sodium Chloride (Merrem 1 Gm/50 ml (Pmx)) 50 ml @ 100 mls/hr Q12 IVPB Last administered on 06/18/17 08:55; Admin Dose 100 MLS/HR; Start at 21:00 Pantoprazole (Protonix Iv) 40 mg BID@06,18 IV Last administered on 06/18/17 05 :39; Admin Dose 40 MG; Start 06/13/17 at 18:00 Ferrous Sulfate (Feosol Liquid Cup) 300 mg DAILY NGT Last administered on 08:54; Admin Dose 300 MG; Start 06/14/17 at 10:00 Mupirocin (Bactroban) 1 applic BID TOP Last administered on 06/18/17 09:00; Admin Dose 1 APPLIC; Start 06/14/17 at 21:00 Valproate Sodium (Depakene Liquid Cup) 500 mg DAILY NGT Last administered on 08:54; Admin Dose 500 MG; Start 06/14/17 at 16:00 Multivitamins 30 ml 30 ml DAILY NGT Last administered on 06/18/17 08:54; Admin Dose 30 ML; Start 06/15/17 at 09:30 Vancomycin HCl (Vancocin) 250 ml @ 125 mls/hr Q12H IVPB Last administered on 06/18/17 11:39; Admin Dose 125 MLS/HR; Start 06/15/17 at 22:00 Amiodarone HCl 400 mg 400 mg BID PO Last administered on 06/18/17 08:55; Admin Dose 400 MG; Start 06/17/17 at 21:00 Potassium Chloride/Sodium Chloride (KCl/NS) 165 ml @ 55 mls/hr ONCE ONCE IVPB ; Start 06/18/17 at 12:00; Stop 06/18/17 at 14:59 LIZ GRACIA Jun 18, 2017 12:05
--- NOTE | 2017-06-18 17:04 | PN ---
DATE: 06/18/2017 SUBJECTIVE DATA: The patient was transferred from ICU to telemetry. He is lethargic, congested, requiring frequent suctioning, as he cannot clear up his secretions. T-max 100, T current 99.9, pulse 78, respirations 20, blood pressure 134/64, saturation 93 on 4 L nasal cannula. LABORATORY AND DIAGNOSTIC DATA: WBC 10.7, H and H 9 and 28.7, platelets 362, BUN 18, and creatinine 0.92. INDWELLINGS: Lindsey, NG tube, PICC line. ANTIMICROBIALS: Vancomycin and meropenem, day number 6. PHYSICAL EXAMINATION: GENERAL: Chronically ill-appearing, elderly man, in no distress. HEENT: Head is atraumatic and normocephalic. Sclerae are anicteric. Buccal mucosa is dry. NECK: Supple. Trachea is midline. CHEST: Chest rise is symmetrical. Breath sounds with crackles. HEART: S1, S2. ABDOMEN: Soft. Bowel sounds are present. EXTREMITIES: Without cyanosis. ASSESSMENT: 1. Resolving sepsis. 2. Healthcare-associated pneumonia with ongoing aspiration secondary to significant secretion retention. 3. Proteus mirabilis urinary tract infection. 4. Methicillin-resistant Staphylococcus aureus nares colonization. 5. Dementia. 6. History of benign prostatic hyperplasia. PLAN: The patient remains unchanged. Overall doing poorly. He is allergic to penicillin and currently on meropenem and vancomycin. We are going to keep him on current regimen. Continue anti-aspiration measures. Keep head of the bed elevated at above 45 degrees at all times. Continue pulmonary toilet. The patient is a full code. Dictated By: Yue Loaiza NP /walker/bruce /Document#: [id number]
--- NOTE | 2017-06-18 19:11 | CONS ---
Date/Time of Note Date/Time of Note DATE: 06/18/17 TIME: 19:09 Assessment/Plan Assessment/Plan Additional Assessment/Plan Septic shock off IV pressor Paroxysmal atrial fibrillation with rapid ventricular rates Respiratory failure status post extubation Acute kidney injury Preserved ejection fraction Acute blood loss anemia status post blood transfusion -Patient off IV pressor, blood pressure trend currently stable. On p.o. amiodarone. No anticoagulation at the current time given severe anemia status post blood transfusion. Maintain potassium above 4.0 and magnesium above 2.0 Consultation Date/Type/Reason Admit Date/Time Jun 12, 2017 at 11:47 Initial Consult Date 06/13/17 Type of Consultation: cv Referring Provider: LETI LOPEZ 24 HR Interval Summary Free Text/Dictation Patient seen and examined Exam/Review of Systems Vital Signs Vitals Vital Signs Date Time Temp Pulse Resp B/P Pulse Ox O2 Delivery O2 Flow Rate FiO2 06/18/17 17:09 4.0 06/18/17 17:04 88 24 95 Nasal Cannula 06/18/17 15:37 99.7 127/61 06/16/17 11:40 30 Intake and Output 06/17/17 06/17/17 06/18/17 15:00 23:00 07:00 Intake Total 700 ml 510 ml 40 ml Output Total 480 ml 560 ml 1500 ml Balance 220 ml -50 ml -1460 ml Exam Awake, no apparent distress Head: normocephalic Respiratory: other (Coarse breath sounds bilaterally, no wheezing) Cardiovascular: other (S1-S2 heard), regular rate and rhythm Gastrointestinal: bowel sounds, non-tender, soft Extremities: other (No edema) Results Result Diagram: 06/18/17 0752 06/18/17 0752 Results 24 hrs Laboratory Tests Test 06/17/17 20:54 06/18/17 05:30 06/18/17 07:52 Hemoglobin 8.9 #L 9.0 L Hematocrit 27.4 #L 28.7 L Vancomycin Level Trough 16.5 Lab Scanned Report BLOOD TRANSFUSION White Blood Count 10.7 # Red Blood Count 3.08 #L Mean Corpuscular Volume 93.2 Mean Corpuscular Hemoglobin 29.2 Mean Corpuscular Hemoglobin Concent 31.4 L Red Cell Distribution Width 18.0 H Platelet Count 362 Mean Platelet Volume 11.8 H Neutrophils % 76.7 Lymphocytes % 9.6 L Monocytes % 10.7 Eosinophils % 1.5 Basophils % 0.4 Nucleated Red Blood Cells % 0.0 Neutrophils # 8.2 H Lymphocytes # 1.0 Monocytes # 1.2 H Eosinophils # 0.2 Basophils # 0.0 Nucleated Red Blood Cells # 0.0 Sodium Level 149 H Potassium Level 3.6 Chloride Level 116 H Carbon Dioxide Level 28 Anion Gap 9 Blood Urea Nitrogen 18 Creatinine 0.92 Glucose Level 110 Calcium Level 8.2 L Phosphorus Level 2.8 Magnesium Level 2.1 Medications Medications Current Medications Ascorbic Acid (Vitamin C) 500 mg DAILY PO Last administered on 06/18/17 08:54 ; Admin Dose 500 MG; Start 06/13/17 at 09:00 Atorvastatin Calcium (Lipitor) 20 mg QHS PO Last administered on 06/17/17 20: 17; Admin Dose 20 MG; Start 06/12/17 at 21:00 Finasteride (Proscar) 5 mg DAILY PO Last administered on 06/18/17 08:54; Admin Dose 5 MG; Start 06/13/17 at 09:00 Gabapentin (Neurontin) 300 mg TID PO Last administered on 06/18/17 13:20; Admin Dose 300 MG; Start 06/12/17 at 13:00 Saccharomyces Boulardii (Florastor) 250 mg BID PO Last administered on 08:54; Admin Dose 250 MG; Start 06/12/17 at 21:00 Tamsulosin HCl (Flomax) 0.8 mg HS PO Last administered on 06/17/17 20:16; Admin Dose 0.8 MG; Start 06/12/17 at 21:00 Ondansetron HCl (Zofran Inj) 4 mg Q6H PRN IV NAUSEA AND/OR VOMITING; Start at 12:30 Acetaminophen (Tylenol Tab) 650 mg Q6H PRN PO PAIN LEVEL 1-3 OR FEVER; Start at 12:30 Acetaminophen (Tylenol Supp) 650 mg Q6H PRN [place] PAIN LEVEL 1-3 OR FEVER; Start 06/12/17 at 12:30 Acetaminophen/ Hydrocodone Bitart ([place] (5/325)) 1 tab Q6H PRN PO MODERATE PAIN LEVEL 4-6 Last administered on 06/13/17 08:36; Admin Dose 1 TAB; Start at 12:30 Acetaminophen/ Hydrocodone Bitart ([place] (5/325)) 2 tab Q6H PRN PO SEVERE PAIN LEVEL 7-10; Start 06/12/17 at 12:30 Morphine Sulfate (morphine) 2 mg Q4H PRN IV SEVERE PAIN LEVEL 7-10; Start 06/12 at 12:30 Docusate Sodium (Colace) 100 mg Q12H PRN PO CONSTIPATION; Start 06/12/17 at 12: 30 Magnesium Hydroxide (Milk Of Mag) 30 ml DAILY PRN PO CONSTIPATION; Start at 12:30 Bisacodyl (Dulcolax Supp) 10 mg DAILY PRN [place] CONSTIPATION; Start 06/12/17 at 12 :30 Morphine Sulfate (morphine) 2 mg Q2 PRN IV PAIN LEVEL 4-7 Last administered on 06/13/17 05:15; Admin Dose 2 MG; Start 06/12/17 at 14:30 IV Flush 10 ml 10 ml PRN PRN IV IV PROTOCOL; Start 06/13/17 at 14:00 Meropenem/Sodium Chloride (Merrem 1 Gm/50 ml (Pmx)) 50 ml @ 100 mls/hr Q12 IVPB Last administered on 06/18/17 08:55; Admin Dose 100 MLS/HR; Start at 21:00 Pantoprazole (Protonix Iv) 40 mg BID@06,18 IV Last administered on 06/18/17 17 :17; Admin Dose 40 MG; Start 06/13/17 at 18:00 Ferrous Sulfate (Feosol Liquid Cup) 300 mg DAILY NGT Last administered on 08:54; Admin Dose 300 MG; Start 06/14/17 at 10:00 Mupirocin (Bactroban) 1 applic BID TOP Last administered on 06/18/17 09:00; Admin Dose 1 APPLIC; Start 06/14/17 at 21:00 Valproate Sodium (Depakene Liquid Cup) 500 mg DAILY NGT Last administered on 08:54; Admin Dose 500 MG; Start 06/14/17 at 16:00 Multivitamins 30 ml 30 ml DAILY NGT Last administered on 06/18/17 08:54; Admin Dose 30 ML; Start 06/15/17 at 09:30 Vancomycin HCl (Vancocin) 250 ml @ 125 mls/hr Q12H IVPB Last administered on 06/18/17 11:39; Admin Dose 125 MLS/HR; Start 06/15/17 at 22:00 Amiodarone HCl (Cordarone) 400 mg BID PO Last administered on 06/18/17 08:55; Admin Dose 400 MG; Start 06/17/17 at 21:00 Rich Rader DO Jun 18, 2017 19:11
[2017-06-18] MEDS ORDERED: POTASSIUM CHLORIDE 20 MEQ POWDER FOR ORAL SOLN NGT ONE (19:30)
--- NOTE | 2017-06-18 20:18 | PN ---
Date/Time of Note Date/Time of Note DATE: 06/18/17 TIME: 20:15 Assessment/Plan VTE Prophylaxis VTE Prophylaxis Intervention: SCD's Lines/Catheters [facility] Type [email or web address] Sal[place] Lock Urinary Cath still in place: Yes Reason Cath still needed: urinary retention Assessment/Plan Chief Complaint/Hosp Course Summary of Assessment and Plan Assessment: Severe anemia No overt GI bleeding Sepsis/pneumonia Acute renal failure/improved Organic brain syndrome Plan: Continue present regimen EGD tomorrow. Patient's POA informed of procedure including risks benefits and alternatives. She is agreeable to proceed Subjective: Course reviewed with nursing staff Patient interviewed and examined All labs, imaging and other results reviewed The patient now extubated Will plan EGD tomorrow Exam: General: Well developed, well nourished Skin: No lesions, no stigmata chronic liver disease, no evidence of bleeding diathesis Lymphatic: No palpable lymphadenopathy HEENT: No lesions Cardiovascular: Heart: Regular rate and rhythm, no murmurs, gallops or rubs. Peripheral pulses present within normal limits, no cyanosis, clubbing or edemas. No pulsatile abdominal mass Respiratory: Crackles bilaterally. Otherwise lungs clear to auscultation and percussion, no wheezing, no rubs Gastrointestinal and Liver: Abdomen: Soft, non tender, non-distended, no hernias , no masses, no organomegaly, no ascites, no guarding, no rebound tenderness, normoactive bowel sounds. Extremities: No cyanosis, clubbing, or edema. Diagnostic Studies: Available data and images were reviewed personally. See reports. Significant results and findings are addressed here or in the assessment and plan. Problems: Exam/Review of Systems Vital Signs Vitals Vital Signs Date Time Temp Pulse Resp B/P Pulse Ox O2 Delivery O2 Flow Rate FiO2 06/18/17 20:04 69 06/18/17 19:25 98.4 19 133/70 97 06/18/17 17:09 4.0 06/18/17 17:04 Nasal Cannula 06/16/17 11:40 30 Intake and Output 06/17/17 06/17/17 06/18/17 15:00 23:00 07:00 Intake Total 700 ml 510 ml 40 ml Output Total 480 ml 560 ml 1500 ml Balance 220 ml -50 ml -1460 ml Results Result Diagram: 06/18/17 0752 06/18/17 0752 Results 24 hrs Laboratory Tests Test 06/17/17 20:54 06/18/17 05:30 06/18/17 07:52 Hemoglobin 8.9 #L 9.0 L Hematocrit 27.4 #L 28.7 L Vancomycin Level Trough 16.5 Lab Scanned Report BLOOD TRANSFUSION White Blood Count 10.7 # Red Blood Count 3.08 #L Mean Corpuscular Volume 93.2 Mean Corpuscular Hemoglobin 29.2 Mean Corpuscular Hemoglobin Concent 31.4 L Red Cell Distribution Width 18.0 H Platelet Count 362 Mean Platelet Volume 11.8 H Neutrophils % 76.7 Lymphocytes % 9.6 L Monocytes % 10.7 Eosinophils % 1.5 Basophils % 0.4 Nucleated Red Blood Cells % 0.0 Neutrophils # 8.2 H Lymphocytes # 1.0 Monocytes # 1.2 H Eosinophils # 0.2 Basophils # 0.0 Nucleated Red Blood Cells # 0.0 Sodium Level 149 H Potassium Level 3.6 Chloride Level 116 H Carbon Dioxide Level 28 Anion Gap 9 Blood Urea Nitrogen 18 Creatinine 0.92 Glucose Level 110 Calcium Level 8.2 L Phosphorus Level 2.8 Magnesium Level 2.1 Medications Medications Current Medications Ascorbic Acid (Vitamin C) 500 mg DAILY PO Last administered on 06/18/17 08:54 ; Admin Dose 500 MG; Start 06/13/17 at 09:00 Atorvastatin Calcium (Lipitor) 20 mg QHS PO Last administered on 06/17/17 20: 17; Admin Dose 20 MG; Start 06/12/17 at 21:00 Finasteride (Proscar) 5 mg DAILY PO Last administered on 06/18/17 08:54; Admin Dose 5 MG; Start 06/13/17 at 09:00 Gabapentin (Neurontin) 300 mg TID PO Last administered on 06/18/17 13:20; Admin Dose 300 MG; Start 06/12/17 at 13:00 Saccharomyces Boulardii (Florastor) 250 mg BID PO Last administered on 08:54; Admin Dose 250 MG; Start 06/12/17 at 21:00 Tamsulosin HCl (Flomax) 0.8 mg HS PO Last administered on 06/17/17 20:16; Admin Dose 0.8 MG; Start 06/12/17 at 21:00 Ondansetron HCl (Zofran Inj) 4 mg Q6H PRN IV NAUSEA AND/OR VOMITING; Start at 12:30 Acetaminophen (Tylenol Tab) 650 mg Q6H PRN PO PAIN LEVEL 1-3 OR FEVER; Start at 12:30 Acetaminophen (Tylenol Supp) 650 mg Q6H PRN [place] PAIN LEVEL 1-3 OR FEVER; Start 06/12/17 at 12:30 Acetaminophen/ Hydrocodone Bitart ([place] (5/325)) 1 tab Q6H PRN PO MODERATE PAIN LEVEL 4-6 Last administered on 06/13/17 08:36; Admin Dose 1 TAB; Start at 12:30 Acetaminophen/ Hydrocodone Bitart ([place] (5/325)) 2 tab Q6H PRN PO SEVERE PAIN LEVEL 7-10; Start 06/12/17 at 12:30 Morphine Sulfate (morphine) 2 mg Q4H PRN IV SEVERE PAIN LEVEL 7-10; Start 06/12 at 12:30 Docusate Sodium (Colace) 100 mg Q12H PRN PO CONSTIPATION; Start 06/12/17 at 12: 30 Magnesium Hydroxide (Milk Of Mag) 30 ml DAILY PRN PO CONSTIPATION; Start at 12:30 Bisacodyl (Dulcolax Supp) 10 mg DAILY PRN [place] CONSTIPATION; Start 06/12/17 at 12 :30 Morphine Sulfate (morphine) 2 mg Q2 PRN IV PAIN LEVEL 4-7 Last administered on 06/13/17 05:15; Admin Dose 2 MG; Start 06/12/17 at 14:30 IV Flush 10 ml 10 ml PRN PRN IV IV PROTOCOL; Start 06/13/17 at 14:00 Meropenem/Sodium Chloride (Merrem 1 Gm/50 ml (Pmx)) 50 ml @ 100 mls/hr Q12 IVPB Last administered on 06/18/17 08:55; Admin Dose 100 MLS/HR; Start at 21:00 Pantoprazole (Protonix Iv) 40 mg BID@06,18 IV Last administered on 06/18/17 17 :17; Admin Dose 40 MG; Start 06/13/17 at 18:00 Ferrous Sulfate (Feosol Liquid Cup) 300 mg DAILY NGT Last administered on 08:54; Admin Dose 300 MG; Start 06/14/17 at 10:00 Mupirocin (Bactroban) 1 applic BID TOP Last administered on 06/18/17 09:00; Admin Dose 1 APPLIC; Start 06/14/17 at 21:00 Valproate Sodium (Depakene Liquid Cup) 500 mg DAILY NGT Last administered on 08:54; Admin Dose 500 MG; Start 06/14/17 at 16:00 Multivitamins 30 ml 30 ml DAILY NGT Last administered on 06/18/17 08:54; Admin Dose 30 ML; Start 06/15/17 at 09:30 Vancomycin HCl (Vancocin) 250 ml @ 125 mls/hr Q12H IVPB Last administered on 06/18/17 11:39; Admin Dose 125 MLS/HR; Start 06/15/17 at 22:00 Amiodarone HCl (Cordarone) 400 mg BID PO Last administered on 06/18/17 08:55; Admin Dose 400 MG; Start 06/17/17 at 21:00 DEN PITTMAN MD Jun 18, 2017 20:18
[2017-06-18] MEDS: TAMSULOSIN (SR) 0.4 MG CAP PO SCH (21:35)
[2017-06-18] MEDS: ATORVASTATIN 20 MG TAB PO SCH (21:35)
[2017-06-19] VITALS (19 sets, daily range): BP systolic 99–149; BP diastolic 49–88; PULSE 51–87; RESP 16–20
[2017-06-19] MEDS: ALBUTEROL/IPRATROPIUM (NEB) 3 ML AMP NEB SCH ×6 (00:23→20:20)
[2017-06-19] MEDS: PANTOPRAZOLE 40 MG INJ IV SCH ×2 (05:53→18:36)
--- NOTE | 2017-06-19 07:27 | PN ---
Date/Time of Note Date/Time of Note DATE: 06/19/17 TIME: 07:26 Assessment/Plan VTE Prophylaxis VTE Prophylaxis Intervention: contraindicated Lines/Catheters IV [facility] Type (from [facility] PICC Line Central line still needed: Yes Urinary Cath still in place: Yes Reason Cath still needed: other (indicate) Assessment/Plan Chief Complaint/Hosp Course 1. Status post sepsis with underlying septic shock secondary to aspiration pneumonia and urinary tract infection. On antibiotics as per infectious diseases. 2. Acute respiratory failure. Hypoxic. Status post intubation and extubation. Continue inhaled bronchodilators. 3. Dysphagia. Continue aspiration precautions. Speech therapy evaluation failed. ST to re-evaluate the patient. 4. Normocytic, normochromic anemia requiring blood transfusions. Etiology unclear. Gastroenterology on the case. Plan for EGDscopy. On proton pump inhibitors. Iron panel showing no significant iron deficiency. 5. Atrial fibrillation with RVR. Status post evaluation by cardiology. On amiodarone. 6. Benign prostatic hypertrophy. Status post Lindsey catheter insertion by urology. Continue finasteride and tamsulosin. 7. Dementia. Continue supportive care. 8. Acute nonoliguric kidney injury. Most probably secondary to hemodynamics. Currently resolved. Status post evaluation by nephrology. 9. Seizure disorder. Continue anticonvulsants. 10. Fluids, electrolytes, and nutrition. N.p.o. 11. DVT prophylaxis. Contraindicated. 12. Gastrointestinal prophylaxis. Proton pump inhibitors. 13. Plan. Continue antimicrobials. Plan for EGDscopy today. Case discussed with Dr. Caruso. Problems: Subjective 24 Hr Interval Summary Free Text/Dictation Patient scheduled for EGDscopy today. Exam/Review of Systems Vital Signs Vitals Vital Signs Date Time Temp Pulse Resp B/P Pulse Ox O2 Delivery O2 Flow Rate FiO2 06/19/17 04:10 70 18 98 Nasal Cannula 3.0 06/19/17 03:36 98.0 139/75 06/16/17 11:40 30 Intake and Output 06/18/17 06/18/17 06/19/17 15:00 23:00 07:00 Intake Total 300 ml 350 ml 150 ml Output Total 1000 ml 750 ml Balance 300 ml -650 ml -600 ml Exam General: Adequately build 72 year-old male lying in bed in no apparent distress. HEENT: Normocephalic, atraumatic. Eyes: Anicteric sclerae, conjunctivae clear. ENT: Nasal septum midline, oral mucosa is dry. Poor dentition. Neck supple, JVD noticed. Respiratory: Bilaterally diminished breath sounds. Use of accessory muscles of respiration. B/L coarse rales. Cardiovascular: S1, S2 heard. Abdomen: Soft, nontender, and nondistended. Bowel sounds positive in all 4 quadrants. Genitourinary: Deferred. Extremities: No cyanosis, no clubbing, no edema. Peripheral pulses palpable. Neurologic: The patient is awake and alert. Results Result Diagram: 06/18/17 0752 06/18/17 0752 Results 24 hrs Laboratory Tests Test 06/18/17 07:52 06/19/17 06:22 White Blood Count 10.7 # Red Blood Count 3.08 #L Hemoglobin 9.0 L Hematocrit 28.7 L Mean Corpuscular Volume 93.2 Mean Corpuscular Hemoglobin 29.2 Mean Corpuscular Hemoglobin Concent 31.4 L Red Cell Distribution Width 18.0 H Platelet Count 362 Mean Platelet Volume 11.8 H Neutrophils % 76.7 Lymphocytes % 9.6 L Monocytes % 10.7 Eosinophils % 1.5 Basophils % 0.4 Nucleated Red Blood Cells % 0.0 Neutrophils # 8.2 H Lymphocytes # 1.0 Monocytes # 1.2 H Eosinophils # 0.2 Basophils # 0.0 Nucleated Red Blood Cells # 0.0 Sodium Level 149 H Potassium Level 3.6 Chloride Level 116 H Carbon Dioxide Level 28 Anion Gap 9 Blood Urea Nitrogen 18 Creatinine 0.92 Glucose Level 110 Calcium Level 8.2 L Phosphorus Level 2.8 Magnesium Level 2.1 Lab Scanned Report BLOOD TRANSFUSION Medications Medications Current Medications Ascorbic Acid (Vitamin C) 500 mg DAILY PO Last administered on 06/18/17 08:54 ; Admin Dose 500 MG; Start 06/13/17 at 09:00 Atorvastatin Calcium (Lipitor) 20 mg QHS PO Last administered on 06/18/17 21: 35; Admin Dose 20 MG; Start 06/12/17 at 21:00 Finasteride (Proscar) 5 mg DAILY PO Last administered on 06/18/17 08:54; Admin Dose 5 MG; Start 06/13/17 at 09:00 Gabapentin (Neurontin) 300 mg TID PO Last administered on 06/18/17 21:35; Admin Dose 300 MG; Start 06/12/17 at 13:00 Saccharomyces Boulardii (Florastor) 250 mg BID PO Last administered on 21:34; Admin Dose 250 MG; Start 06/12/17 at 21:00 Tamsulosin HCl (Flomax) 0.8 mg HS PO Last administered on 06/18/17 21:35; Admin Dose 0.8 MG; Start 06/12/17 at 21:00 Ondansetron HCl (Zofran Inj) 4 mg Q6H PRN IV NAUSEA AND/OR VOMITING; Start at 12:30 Acetaminophen (Tylenol Tab) 650 mg Q6H PRN PO PAIN LEVEL 1-3 OR FEVER; Start at 12:30 Acetaminophen (Tylenol Supp) 650 mg Q6H PRN [place] PAIN LEVEL 1-3 OR FEVER; Start 06/12/17 at 12:30 Acetaminophen/ Hydrocodone Bitart ([place] (5/325)) 1 tab Q6H PRN PO MODERATE PAIN LEVEL 4-6 Last administered on 06/13/17 08:36; Admin Dose 1 TAB; Start at 12:30 Acetaminophen/ Hydrocodone Bitart ([place] (5/325)) 2 tab Q6H PRN PO SEVERE PAIN LEVEL 7-10; Start 06/12/17 at 12:30 Morphine Sulfate (morphine) 2 mg Q4H PRN IV SEVERE PAIN LEVEL 7-10; Start 06/12 at 12:30 Docusate Sodium (Colace) 100 mg Q12H PRN PO CONSTIPATION; Start 06/12/17 at 12: 30 Magnesium Hydroxide (Milk Of Mag) 30 ml DAILY PRN PO CONSTIPATION; Start at 12:30 Bisacodyl (Dulcolax Supp) 10 mg DAILY PRN [place] CONSTIPATION; Start 06/12/17 at 12 :30 Morphine Sulfate (morphine) 2 mg Q2 PRN IV PAIN LEVEL 4-7 Last administered on 06/13/17 05:15; Admin Dose 2 MG; Start 06/12/17 at 14:30 IV Flush 10 ml 10 ml PRN PRN IV IV PROTOCOL; Start 06/13/17 at 14:00 Meropenem/Sodium Chloride (Merrem 1 Gm/50 ml (Pmx)) 50 ml @ 100 mls/hr Q12 IVPB Last administered on 06/18/17 21:35; Admin Dose 100 MLS/HR; Start at 21:00 Pantoprazole (Protonix Iv) 40 mg BID@06,18 IV Last administered on 06/19/17 05 :53; Admin Dose 40 MG; Start 06/13/17 at 18:00 Ferrous Sulfate (Feosol Liquid Cup) 300 mg DAILY NGT Last administered on 08:54; Admin Dose 300 MG; Start 06/14/17 at 10:00 Mupirocin (Bactroban) 1 applic BID TOP Last administered on 06/18/17 21:50; Admin Dose 1 APPLIC; Start 06/14/17 at 21:00 Valproate Sodium (Depakene Liquid Cup) 500 mg DAILY NGT Last administered on 08:54; Admin Dose 500 MG; Start 06/14/17 at 16:00 Multivitamins 30 ml 30 ml DAILY NGT Last administered on 06/18/17 08:54; Admin Dose 30 ML; Start 06/15/17 at 09:30 Vancomycin HCl (Vancocin) 250 ml @ 125 mls/hr Q12H IVPB Last administered on 06/18/17 22:28; Admin Dose 125 MLS/HR; Start 06/15/17 at 22:00 Amiodarone HCl (Cordarone) 400 mg BID PO Last administered on 06/18/17 21:36; Admin Dose 400 MG; Start 06/17/17 at 21:00 ALEXANDRE ULLOA NP Jun 19, 2017 07:27
--- NOTE | 2017-06-19 08:21 | PN ---
Date/Time of Note Date/Time of Note DATE: 06/19/17 TIME: 08:14 Assessment/Plan VTE Prophylaxis VTE Prophylaxis Intervention: LMWH Lines/Catheters IV Catheter Type ([facility] PICC Line Central line still needed: Yes Urinary Cath still in place: Yes Reason Cath still needed: urinary retention, other (indicate) (Severe urethral strictures) Assessment/Plan Chief Complaint/Hosp Course Patient does have severe urethral strictures, urinary tract infection, and urinary retention. Lindsey catheter is draining well and the urine is clear. Keep the Lindsey catheter in and once the patient is active we'll discontinue the Lindsey catheter and see if he does void and empty his bladder Problems: Assessment/Plan 1-urinary tract infection was Proteus mirabilis, patient is on meropenem , continue antibiotic 2-severe urethral strictures, patient has a Lindsey catheter, keep the Lindsey catheter in place until he is more active, then we'll discontinue the Lindsey catheter and see if he does void and empty his bladder. Subjective 24 Hr Interval Summary Constitutional: no complaints, other (Awake and alert) Eyes: no complaints ENT: no complaints Respiratory: no complaints Cardiovascular: no complaints Gastrointestinal: other (Has an NG tube) Genitourinary: other (Has a Lindsey catheter), No bleeding, No hematuria Musculoskeletal: no complaints Skin: no complaints Neurologic: no complaints Endocrine: no complaints Lymphatic: no complaints Immunologic: no complaints Exam/Review of Systems Vital Signs Vitals Vital Signs Date Time Temp Pulse Resp B/P Pulse Ox O2 Delivery O2 Flow Rate FiO2 06/19/17 07:26 98.3 83 18 142/81 97 06/19/17 04:10 Nasal Cannula 3.0 06/16/17 11:40 30 Intake and Output 06/18/17 06/18/17 06/19/17 15:00 23:00 07:00 Intake Total 300 ml 350 ml 150 ml Output Total 1000 ml 750 ml Balance 300 ml -650 ml -600 ml Exam Constitutional: alert Psych: no complaints Head: normocephalic Eyes: nl conjunctiva ENMT: nl external ears & nose Neck: non-tender Respiratory: normal air movement Cardiovascular: No edema Gastrointestinal: soft, No tender Genitourinary - Male: other (Lindsey catheter draining well, urine is clear, he needs meatal care) Musculoskeletal: nl extremities to inspection Extremities: No calf tenderness Skin: nl turgor Results Result Diagram: 06/18/17 0752 06/18/17 0752 Results 24 hrs Laboratory Tests Test 06/19/17 06:22 Lab Scanned Report BLOOD TRANSFUSION Medications Medications Current Medications Ascorbic Acid (Vitamin C) 500 mg DAILY PO Last administered on 06/18/17 08:54 ; Admin Dose 500 MG; Start 06/13/17 at 09:00 Atorvastatin Calcium (Lipitor) 20 mg QHS PO Last administered on 06/18/17 21: 35; Admin Dose 20 MG; Start 06/12/17 at 21:00 Finasteride (Proscar) 5 mg DAILY PO Last administered on 06/18/17 08:54; Admin Dose 5 MG; Start 06/13/17 at 09:00 Gabapentin (Neurontin) 300 mg TID PO Last administered on 06/18/17 21:35; Admin Dose 300 MG; Start 06/12/17 at 13:00 Saccharomyces Boulardii (Florastor) 250 mg BID PO Last administered on 21:34; Admin Dose 250 MG; Start 06/12/17 at 21:00 Tamsulosin HCl (Flomax) 0.8 mg HS PO Last administered on 06/18/17 21:35; Admin Dose 0.8 MG; Start 06/12/17 at 21:00 Ondansetron HCl (Zofran Inj) 4 mg Q6H PRN IV NAUSEA AND/OR VOMITING; Start at 12:30 Acetaminophen (Tylenol Tab) 650 mg Q6H PRN PO PAIN LEVEL 1-3 OR FEVER; Start at 12:30 Acetaminophen (Tylenol Supp) 650 mg Q6H PRN [place] PAIN LEVEL 1-3 OR FEVER; Start 06/12/17 at 12:30 Acetaminophen/ Hydrocodone Bitart ([place] (5/325)) 1 tab Q6H PRN PO MODERATE PAIN LEVEL 4-6 Last administered on 06/13/17 08:36; Admin Dose 1 TAB; Start at 12:30 Acetaminophen/ Hydrocodone Bitart ([place] (5/325)) 2 tab Q6H PRN PO SEVERE PAIN LEVEL 7-10; Start 06/12/17 at 12:30 Morphine Sulfate (morphine) 2 mg Q4H PRN IV SEVERE PAIN LEVEL 7-10; Start 06/12 at 12:30 Docusate Sodium (Colace) 100 mg Q12H PRN PO CONSTIPATION; Start 06/12/17 at 12: 30 Magnesium Hydroxide (Milk Of Mag) 30 ml DAILY PRN PO CONSTIPATION; Start at 12:30 Bisacodyl (Dulcolax Supp) 10 mg DAILY PRN [place]STIPATION; Start 06/12/17 at 12 :30 Morphine Sulfate (morphine) 2 mg Q2 PRN IV PAIN LEVEL 4-7 Last administered on 06/13/17 05:15; Admin Dose 2 MG; Start 06/12/17 at 14:30 IV Flush 10 ml 10 ml PRN PRN IV IV PROTOCOL; Start 06/13/17 at 14:00 Meropenem/Sodium Chloride (Merrem 1 Gm/50 ml (Pmx)) 50 ml @ 100 mls/hr Q12 IVPB Last administered on 06/18/17 21:35; Admin Dose 100 MLS/HR; Start at 21:00 Pantoprazole (Protonix Iv) 40 mg BID@06,18 IV Last administered on 06/19/17 05 :53; Admin Dose 40 MG; Start 06/13/17 at 18:00 Ferrous Sulfate (Feosol Liquid Cup) 300 mg DAILY NGT Last administered on 08:54; Admin Dose 300 MG; Start 06/14/17 at 10:00 Mupirocin (Bactroban) 1 applic BID TOP Last administered on 06/18/17 21:50; Admin Dose 1 APPLIC; Start 06/14/17 at 21:00 Valproate Sodium (Depakene Liquid Cup) 500 mg DAILY NGT Last administered on 08:54; Admin Dose 500 MG; Start 06/14/17 at 16:00 Multivitamins 30 ml 30 ml DAILY NGT Last administered on 06/18/17 08:54; Admin Dose 30 ML; Start 06/15/17 at 09:30 Vancomycin HCl (Vancocin) 250 ml @ 125 mls/hr Q12H IVPB Last administered on 06/18/17 22:28; Admin Dose 125 MLS/HR; Start 06/15/17 at 22:00 Amiodarone HCl (Cordarone) 400 mg BID PO Last administered on 06/18/17t 21:36; Admin Dose 400 MG; Start 06/17/17 at 21:00 BALAJI PERSAUD MD Jun 19, 2017 08:21
[2017-06-19 08:47] LABS: BASOPHILS % 0.6 % (0.0-2.0); EOSINOPHILS # 0.2 10^3/ul (0.0-0.5); EOSINOPHILS % 3.6 % (0.0-7.0); HEMATOCRIT 29.2 % (42.0-52.0); HEMOGLOBIN 9.2 g/dl (14.0-18.0); LYMPHOCYTES # 1.1 10^3/ul (0.8-2.9); LYMPHOCYTES % 16.7 % (15.0-51.0); MEAN CORPUSCULAR HEMOGLOBIN 30.1 pg (29.0-33.0); MEAN CORPUSCULAR HGB CONC 31.5 g/dl (32.0-37.0); MEAN CORPUSCULAR VOLUME 95.4 fl (82.0-101.0); MEAN PLATELET VOLUME 11.9 fl (7.4-10.4); MONOCYTE # 0.9 10^3/ul (0.3-0.9); MONOCYTES % 13.4 % (0.0-11.0); NEUTROPHIL # 4.3 10^3/ul (1.6-7.5); NEUTROPHILS % 64.9 % (39.0-77.0); PLATELET COUNT 346 10^3/UL (140-415); RED BLOOD COUNT 3.06 10^6/ul (4.70-6.10); RED CELL DISTRIBUTION WIDTH 17.4 % (11.5-14.5); WHITE BLOOD COUNT 6.6 10^3/ul (4.8-10.8)
[2017-06-19] MEDS: FERROUS SULFATE 60 MG/ML 5ML CUP NGT SCH (09:14)
[2017-06-19] MEDS: MEROPENEM 1 GM/50ML(PMX) 50 ML IVPB SCH ×2 (09:14→22:00)
[2017-06-19] MEDS: VALPROIC ACID LIQUID CUP 250 MG/5 ML CUP NGT SCH (09:14)
[2017-06-19] MEDS: GABAPENTIN 300 MG CAP PO SCH ×3 (09:14→22:02)
[2017-06-19] MEDS: AMIODARONE 200 MG TAB PO SCH ×2 (09:15→22:02)
[2017-06-19] MEDS: FINASTERIDE 5 MG TAB PO SCH (09:15)
[2017-06-19] MEDS: ASCORBIC ACID 500 MG TAB PO SCH (09:15)
[2017-06-19] MEDS: SACCHAROMYCES BOULARDII 250 MG CAP PO SCH ×2 (09:15→22:00)
[2017-06-19] MEDS: MULTIVITAMINS 30 ML CUP NGT SCH (09:16)
[2017-06-19] MEDS: MUPIROCIN 2% 22 GM OINT TOP SCH ×2 (09:16→22:03)
[2017-06-19 10:14] LABS: CALCIUM 8.3 mg/dl (8.4-10.2); CREATININE 0.86 mg/dl (0.61-1.24); POTASSIUM 4.1 mmol/L (3.5-5.1)
[2017-06-19 10:21] LABS: MAGNESIUM 2.2 mg/dl (1.7-2.5); PHOSPHORUS 2.8 mg/dl (2.5-4.9)
[2017-06-19] MEDS: VANCOMYCIN 1 GM in NS 250 ML IVPB SCH ×2 (10:21→23:11)
--- NOTE | 2017-06-19 10:54 | CONS ---
Date/Time of Note Date/Time of Note DATE: 06/19/17 TIME: 10:52 Assessment/Plan Assessment/Plan Additional Assessment/Plan Assessment and recommendations; 1. Patient admitted with left lower lobe pneumonia possibly aspiration. 2. Advanced dementia. Continue current treatment. Obtain follow-up chest x-ray in 24 hours. Consultation Date/Type/Reason Admit Date/Time Jun 12, 2017 at 11:47 Initial Consult Date 06/13/17 Type of Consultation: Pulmonary Referring Provider: LETI LOPEZ 24 HR Interval Summary Free Text/Dictation Patient's condition is stable. Remains arousable. And follows very simple commands like mouth opening. Still exhibiting generalized weakness. Has remained hemodynamically stable. General exam; elderly male, awake, currently in no distress. Exam/Review of Systems Vital Signs Vitals Vital Signs Date Time Temp Pulse Resp B/P Pulse Ox O2 Delivery O2 Flow Rate FiO2 06/19/17 08:44 3.0 06/19/17 08:44 66 16 96 Nasal Cannula 06/19/17 07:26 98.3 142/81 06/16/17 11:40 30 Intake and Output 06/18/17 06/18/17 06/19/17 15:00 23:00 07:00 Intake Total 300 ml 350 ml 150 ml Output Total 1000 ml 750 ml Balance 300 ml -650 ml -600 ml Exam HEENT exam; supple neck, no JVD. No lymphadenopathy. Midline trachea. No thyromegaly. Patient has a multiple carious teeth. Pupils are small bilaterally. Chest exam; diminished breath sounds bilaterally. S1-S2 audible, no murmurs. Regular rhythm. Abdomen exam; soft, nondistended. Clinically. Bowel sounds audible. Extremity exam; no edema. DIPLOMATIC COURIER exam; patient follows very simple commands like mouth opening. Exhibiting profound generalized weakness. Results Result Diagram: 06/19/1782006/19/1721 Results 24 hrs Laboratory Tests Test 06/19/17 06:22 06/19/17 08:21 Lab Scanned Report BLOOD TRANSFUSION White Blood Count 6.6 # Red Blood Count 3.06 L Hemoglobin 9.2 L Hematocrit 29.2 L Mean Corpuscular Volume 95.4 Mean Corpuscular Hemoglobin 30.1 Mean Corpuscular Hemoglobin Concent 31.5 L Red Cell Distribution Width 17.4 H Platelet Count 346 Mean Platelet Volume 11.9 H Neutrophils % 64.9 Lymphocytes % 16.7 Monocytes % 13.4 H Eosinophils % 3.6 Basophils % 0.6 Nucleated Red Blood Cells % 0.0 Neutrophils # 4.3 Lymphocytes # 1.1 Monocytes # 0.9 Eosinophils # 0.2 Basophils # 0.0 Nucleated Red Blood Cells # 0.0 Sodium Level 147 H Potassium Level 4.1 Chloride Level 112 H Carbon Dioxide Level 28 Anion Gap 11 Blood Urea Nitrogen 18 Creatinine 0.86 Glucose Level 95 Calcium Level 8.3 L Phosphorus Level 2.8 Magnesium Level 2.2 Medications Medications Current Medications Ascorbic Acid (Vitamin C) 500 mg DAILY PO Last administered on 06/19/17 09:15 ; Admin Dose 500 MG; Start 06/13/17 at 09:00 Atorvastatin Calcium (Lipitor) 20 mg QHS PO Last administered on 06/18/17 21: 35; Admin Dose 20 MG; Start 06/12/17 at 21:00 Finasteride (Proscar) 5 mg DAILY PO Last administered on 06/19/17 09:15; Admin Dose 5 MG; Start 06/13/17 at 09:00 Gabapentin (Neurontin) 300 mg TID PO Last administered on 06/19/17 09:14; Admin Dose 300 MG; Start 06/12/17 at 13:00 Saccharomyces Boulardii (Florastor) 250 mg BID PO Last administered on 09:15; Admin Dose 250 MG; Start 06/12/17 at 21:00 Tamsulosin HCl (Flomax) 0.8 mg HS PO Last administered on 06/18/17 21:35; Admin Dose 0.8 MG; Start 06/12/17 at 21:00 Ondansetron HCl (Zofran Inj) 4 mg Q6H PRN IV NAUSEA AND/OR VOMITING; Start at 12:30 Acetaminophen (Tylenol Tab) 650 mg Q6H PRN PO PAIN LEVEL 1-3 OR FEVER; Start at 12:30 Acetaminophen (Tylenol Supp) 650 mg Q6H PRN [place] PAIN LEVEL 1-3 OR FEVER; Start 06/12/17 at 12:30 Acetaminophen/ Hydrocodone Bitart ([place] (5/325)) 1 tab Q6H PRN PO MODERATE PAIN LEVEL 4-6 Last administered on 06/13/17 08:36; Admin Dose 1 TAB; Start at 12:30 Acetaminophen/ Hydrocodone Bitart ([place] (5/325)) 2 tab Q6H PRN PO SEVERE PAIN LEVEL 7-10; Start 06/12/17 at 12:30 Morphine Sulfate (morphine) 2 mg Q4H PRN IV SEVERE PAIN LEVEL 7-10; Start 06/12 at 12:30 Docusate Sodium (Colace) 100 mg Q12H PRN PO CONSTIPATION; Start 06/12/17 at 12: 30 Magnesium Hydroxide (Milk Of Mag) 30 ml DAILY PRN PO CONSTIPATION; Start at 12:30 Bisacodyl (Dulcolax Supp) 10 mg DAILY PRN [place] CONSTIPATION; Start 06/12/17 at 12 :30 Morphine Sulfate (morphine) 2 mg Q2 PRN IV PAIN LEVEL 4-7 Last administered on 06/13/17 05:15; Admin Dose 2 MG; Start 06/12/17 at 14:30 IV Flush 10 ml 10 ml PRN PRN IV IV PROTOCOL; Start 06/13/17 at 14:00 Meropenem/Sodium Chloride (Merrem 1 Gm/50 ml (Pmx)) 50 ml @ 100 mls/hr Q12 IVPB Last administered on 06/19/17 09:14; Admin Dose 100 MLS/HR; Start at 21:00 Pantoprazole (Protonix Iv) 40 mg BID@06,18 IV Last administered on 06/19/17 05 :53; Admin Dose 40 MG; Start 06/13/17 at 18:00 Ferrous Sulfate (Feosol Liquid Cup) 300 mg DAILY NGT Last administered on 09:14; Admin Dose 300 MG; Start 06/14/17 at 10:00 Mupirocin (Bactroban) 1 applic BID TOP Last administered on 06/19/17 09:16; Admin Dose 1 APPLIC; Start 06/14/17 at 21:00 Valproate Sodium (Depakene Liquid Cup) 500 mg DAILY NGT Last administered on 09:14; Admin Dose 500 MG; Start 06/14/17 at 16:00 Multivitamins 30 ml 30 ml DAILY NGT Last administered on 06/19/17 09:16; Admin Dose 30 ML; Start 06/15/17 at 09:30 Vancomycin HCl (Vancocin) 250 ml @ 125 mls/hr Q12H IVPB Last administered on 06/19/17 10:21; Admin Dose 125 MLS/HR; Start 06/15/17 at 22:00 Amiodarone HCl (Cordarone) 400 mg BID PO Last administered on 06/19/17 09:15; Admin Dose 400 MG; Start 06/17/17 at 21:00 LIZ GRACIA Jun 19, 2017 10:54
[2017-06-19] MEDS ORDERED: PROPOFOL 40 ML ONE (14:34)
[2017-06-19] MEDS ORDERED: LIDOCAINE 2% (SDV) 5 ML INJ ONE (14:35)
--- NOTE | 2017-06-19 14:53 | CONS ---
Date/Time of Note Date/Time of Note DATE: 06/19/17 TIME: 14:52 Assessment/Plan Assessment/Plan Additional Assessment/Plan 72 yo male with 1) Severe Sepsis-Resolved 2) Pna, Possible aspiration 3) Resp Failure, vent- Resolved 4) DEEP in the setting of above, Urinary retention. Resolved 5) Likely BPH 6) Severe Anemia DEEP Resolved Renal function stable. Cont gentle IVFs Repeat Chemistry in am., Keep MAPs>65mmHg AVoid Nephrotoxic Rx, avoid hypotension. Will cont to closely follow along with you Consultation Date/Type/Reason Admit Date/Time Jun 12, 2017 at 11:47 Initial Consult Date 06/12/17 Type of Consultation: Renal Referring Provider: LETI LOPEZ 24 HR Interval Summary Free Text/Dictation No new events Exam/Review of Systems Vital Signs Vitals Vital Signs Date Time Temp Pulse Resp B/P Pulse Ox O2 Delivery O2 Flow Rate FiO2 06/19/17 13:25 68 18 95 Nasal Cannula 3.0 06/19/17 11:19 98.0 132/88 06/16/17 11:40 30 Intake and Output 06/18/17 06/18/17 06/19/17 15:00 23:00 07:00 Intake Total 300 ml 350 ml 150 ml Output Total 1000 ml 750 ml Balance 300 ml -650 ml -600 ml Exam Constitutional: No distress ENMT: mucosa pink and moist Respiratory: crackles/rales, No diminished breath sounds, No labored breathing Cardiovascular: regular rate and rhythm, No edema Gastrointestinal: non-tender, soft Neurological: No lethargic Skin: No diaphoresis Results Result Diagram: 06/19/17 0821 06/19/17 0821 Results 24 hrs Laboratory Tests Test 06/19/17 06:22 06/19/17 08:21 Lab Scanned Report BLOOD TRANSFUSION White Blood Count 6.6 # Red Blood Count 3.06 L Hemoglobin 9.2 L Hematocrit 29.2 L Mean Corpuscular Volume 95.4 Mean Corpuscular Hemoglobin 30.1 Mean Corpuscular Hemoglobin Concent 31.5 L Red Cell Distribution Width 17.4 H Platelet Count 346 Mean Platelet Volume 11.9 H Neutrophils % 64.9 Lymphocytes % 16.7 Monocytes % 13.4 H Eosinophils % 3.6 Basophils % 0.6 Nucleated Red Blood Cells % 0.0 Neutrophils # 4.3 Lymphocytes # 1.1 Monocytes # 0.9 Eosinophils # 0.2 Basophils # 0.0 Nucleated Red Blood Cells # 0.0 Sodium Level 147 H Potassium Level 4.1 Chloride Level 112 H Carbon Dioxide Level 28 Anion Gap 11 Blood Urea Nitrogen 18 Creatinine 0.86 Glucose Level 95 Calcium Level 8.3 L Phosphorus Level 2.8 Magnesium Level 2.2 Medications Medications Current Medications Ascorbic Acid (Vitamin C) 500 mg DAILY PO Last administered on 06/19/17 09:15 ; Admin Dose 500 MG; Start 06/13/17 at 09:00 Atorvastatin Calcium (Lipitor) 20 mg QHS PO Last administered on 06/18/17 21: 35; Admin Dose 20 MG; Start 06/12/17 at 21:00 Finasteride (Proscar) 5 mg DAILY PO Last administered on 06/19/17 09:15; Admin Dose 5 MG; Start 06/13/17 at 09:00 Gabapentin (Neurontin) 300 mg TID PO Last administered on 06/19/17 09:14; Admin Dose 300 MG; Start 06/12/17 at 13:00 Saccharomyces Boulardii (Florastor) 250 mg BID PO Last administered on 09:15; Admin Dose 250 MG; Start 06/12/17 at 21:00 Tamsulosin HCl (Flomax) 0.8 mg HS PO Last administered on 06/18/17 21:35; Admin Dose 0.8 MG; Start 06/12/17 at 21:00 Ondansetron HCl (Zofran Inj) 4 mg Q6H PRN IV NAUSEA AND/OR VOMITING; Start at 12:30 Acetaminophen (Tylenol Tab) 650 mg Q6H PRN PO PAIN LEVEL 1-3 OR FEVER; Start at 12:30 Acetaminophen (Tylenol Supp) 650 mg Q6H PRN [place] PAIN LEVEL 1-3 OR FEVER; Start 06/12/17 at 12:30 Acetaminophen/ Hydrocodone Bitart ([place] (5/325)) 1 tab Q6H PRN PO MODERATE PAIN LEVEL 4-6 Last administered on 06/13/17 08:36; Admin Dose 1 TAB; Start at 12:30 Acetaminophen/ Hydrocodone Bitart ([place] (5/325)) 2 tab Q6H PRN PO SEVERE PAIN LEVEL 7-10; Start 06/12/17 at 12:30 Morphine Sulfate (morphine) 2 mg Q4H PRN IV SEVERE PAIN LEVEL 7-10; Start 06/12 at 12:30 Docusate Sodium (Colace) 100 mg Q12H PRN PO CONSTIPATION; Start 06/12/17 at 12: 30 Magnesium Hydroxide (Milk Of Mag) 30 ml DAILY PRN PO CONSTIPATION; Start at 12:30 Bisacodyl (Dulcolax Supp) 10 mg DAILY PRN [place] CONSTIPATION; Start 06/12/17 at 12 :30 Morphine Sulfate (morphine) 2 mg Q2 PRN IV PAIN LEVEL 4-7 Last administered on 06/13/17 05:15; Admin Dose 2 MG; Start 06/12/17 at 14:30 IV Flush 10 ml 10 ml PRN PRN IV IV PROTOCOL; Start 06/13/17 at 14:00 Meropenem/Sodium Chloride (Merrem 1 Gm/50 ml (Pmx)) 50 ml @ 100 mls/hr Q12 IVPB Last administered on 06/19/17 09:14; Admin Dose 100 MLS/HR; Start at 21:00 Pantoprazole (Protonix Iv) 40 mg BID@06,18 IV Last administered on 06/19/17 05 :53; Admin Dose 40 MG; Start 06/13/17 at 18:00 Ferrous Sulfate (Feosol Liquid Cup) 300 mg DAILY NGT Last administered on 09:14; Admin Dose 300 MG; Start 06/14/17 at 10:00 Mupirocin (Bactroban) 1 applic BID TOP Last administered on 06/19/17 09:16; Admin Dose 1 APPLIC; Start 06/14/17 at 21:00 Valproate Sodium (Depakene Liquid Cup) 500 mg DAILY NGT Last administered on 09:14; Admin Dose 500 MG; Start 06/14/17 at 16:00 Multivitamins 30 ml 30 ml DAILY NGT Last administered on 06/19/17 09:16; Admin Dose 30 ML; Start 06/15/17 at 09:30 Vancomycin HCl (Vancocin) 250 ml @ 125 mls/hr Q12H IVPB Last administered on 06/19/17 10:21; Admin Dose 125 MLS/HR; Start 06/15/17 at 22:00 Amiodarone HCl (Cordarone) 400 mg BID PO Last administered on 06/19/17t 09:15; Admin Dose 400 MG; Start 06/17/17 at 21:00 Miscellaneous Information (*Rx Drug Level Order Reminder*) VANCOMYCIN TROUGH AT 2100 ONCE ONCE XX ; Start 06/19/17 at 21:00; Stop 06/19/17 at 21:01 ELVA VIDLA MD Jun 19, 2017 14:53
--- NOTE | 2017-06-19 15:28 | OPPN ---
Date/Time of Note Date/Time of Note DATE: 06/19/17 TIME: 15:21 Proc Note GI Procedure Date 06/19/17 Pre-procedure Diagnosis * Anemia Post-procedure Diagnosis Impression: * 3 active gastric ulcerations, benign endoscopic appearance, no stigmata recent bleeding. Largest measures approximately 12 mm. Biopsies obtained in a limited fashion. * Severe antral gastritis. * Otherwise normal EGD Plan: * PPI twice daily * Monitor H&H, transfuse as necessary * Review pathology as soon as available * Swallowing evaluation Procedure Performed: Endoscopy (With biopsies) Surgeon DEN PITTMAN MD Founder Ceo & President none Anesthesia Type: MAC Anesthesiologist: KAREN LANDIN MD Tourniquet Time none EBL none Transfusion required none Biopsy 1: Gastric antrum Grafts/Implants none Tubes/Drains none Complication(s) none Pt Condition post procedure: stable Disposition: PACU Indications: other (Anemia) Procedure Description Preoperative Diagnosis: [] Postoperative Diagnosis: [] Plan: [] Procedure Performed: After informed consent, with the patient/relatives understanding the procedure, its indications, potential risks and complications, including but not limited to : allergic reaction, bleeding, perforation or infection, and after all pertinent questions were answered to the patients satisfaction, the patient/ relatives signed witnessed informed consent. Following this, premedication was administered slowly IV push under careful cardiovascular and respiratory monitoring with pulse oximetry, automatic blood pressure, and color television console monitor. Once the sedative effect was achieved the patient was place in the left lateral decubitus, the panendoscope was introduced and advanced under visual control. Careful examination of the upper gastrointestinal tract, both on insertion as well as withdrawal of the instrument disclosing the following findings: ESOPHAGUS: the mucosa of the entire esophagus was carefully examined and showed the following findings: the mucosa appears within normal limits. There is no evidence of esophagitis, varices, neoplasm, or stricture. No Hiatal Hernia identified. STOMACH: Upon entrance to the stomach air was insufflated, the gastric capellan distended normally. The mucosa of the fundus, body and antrum of the stomach was carefully examined both head-on and on retroflexion, and showed the following findings: There are 3 active 's in the antrum of the stomach. No stigmata recent bleeding, benign endoscopic appearance. The size of the ulcers are 5 7 and 12 mm. Biopsies were obtained a limited fashion. There is significant erythema edema because of the antrum. Otherwise the mucosa appears within normal limits with no abnormalities. There is no evidence of neoplasm. PYLORUS: The pylorus was carefully examined and showed the following findings: the pylorus appears patent and within normal limits, with no evidence of gastric outlet obstruction. DUODENUM: The duodenal mucosa was carefully examined in the duodenal bulb as well as the second portion of the duodenum and showed the following findings: the mucosa appears unremarkable with no evidence of duodenitis, ulcer or neoplasm. Copies To: CC: DEN PITTMAN MD, MORDO MD Jun 19, 2017 15:28
--- NOTE | 2017-06-19 19:25 | CONS ---
Date/Time of Note Date/Time of Note DATE: 06/19/17 TIME: 19:23 Assessment/Plan Assessment/Plan Additional Assessment/Plan SUBJECTIVE DATA: No acute changes, looks comfortable, no fevers INDWELLINGS: Lindsey, NG tube, PICC line. ANTIMICROBIALS: Vancomycin and meropenem, day number 7. PHYSICAL EXAMINATION: GENERAL: Chronically ill-appearing, elderly man, in no distress. HEENT: Head is atraumatic and normocephalic. Sclerae are anicteric. Buccal mucosa is dry. NECK: Supple. Trachea is midline. CHEST: Chest rise is symmetrical. Breath sounds with crackles. HEART: S1, S2. ABDOMEN: Soft. Bowel sounds are present. EXTREMITIES: Without cyanosis. ASSESSMENT: 1. Resolving sepsis. 2. Healthcare-associated pneumonia with ongoing aspiration secondary to significant secretion retention. 3. Proteus mirabilis urinary tract infection. 4. Methicillin-resistant Staphylococcus aureus nares colonization. 5. Dementia. 6. History of benign prostatic hyperplasia. PLAN: The patient remains unchanged. Will dc Vanco, continue Merrem, continue aspiration precautions, f/u cxr, pulmonary rec-s, pending EGD [facility] staff Consultation Date/Type/Reason Admit Date/Time Jun 12, 2017 at 11:47 Initial Consult Date 06/13/17 Type of Consultation: ID Referring Provider: LETI LOPEZ Exam/Review of Systems Vital Signs Vitals Vital Signs Date Time Temp Pulse Resp B/P Pulse Ox O2 Delivery O2 Flow Rate FiO2 06/19/17 16:45 72 18 96 Nasal Cannula 3.0 06/19/17 15:46 127/59 06/19/17 15:15 98.2 06/16/17 11:40 30 Intake and Output 06/18/17 06/18/17 06/19/17 15:00 23:00 07:00 Intake Total 300 ml 350 ml 150 ml Output Total 1000 ml 750 ml Balance 300 ml -650 ml -600 ml Results Result Diagram: 06/19/17 0821 06/19/17 0821 Results 24 hrs Laboratory Tests Test 06/19/17 06:22 06/19/17 08:21 Lab Scanned Report BLOOD TRANSFUSION White Blood Count 6.6 # Red Blood Count 3.06 L Hemoglobin 9.2 L Hematocrit 29.2 L Mean Corpuscular Volume 95.4 Mean Corpuscular Hemoglobin 30.1 Mean Corpuscular Hemoglobin Concent 31.5 L Red Cell Distribution Width 17.4 H Platelet Count 346 Mean Platelet Volume 11.9 H Neutrophils % 64.9 Lymphocytes % 16.7 Monocytes % 13.4 H Eosinophils % 3.6 Basophils % 0.6 Nucleated Red Blood Cells % 0.0 Neutrophils # 4.3 Lymphocytes # 1.1 Monocytes # 0.9 Eosinophils # 0.2 Basophils # 0.0 Nucleated Red Blood Cells # 0.0 Sodium Level 147 H Potassium Level 4.1 Chloride Level 112 H Carbon Dioxide Level 28 Anion Gap 11 Blood Urea Nitrogen 18 Creatinine 0.86 Glucose Level 95 Calcium Level 8.3 L Phosphorus Level 2.8 Magnesium Level 2.2 Medications Medications Current Medications Ascorbic Acid (Vitamin C) 500 mg DAILY PO Last administered on 06/19/17 09:15 ; Admin Dose 500 MG; Start 06/13/17 at 09:00 Atorvastatin Calcium (Lipitor) 20 mg QHS PO Last administered on 06/18/17 21: 35; Admin Dose 20 MG; Start 06/12/17 at 21:00 Finasteride (Proscar) 5 mg DAILY PO Last administered on 06/19/17 09:15; Admin Dose 5 MG; Start 06/13/17 at 09:00 Gabapentin (Neurontin) 300 mg TID PO Last administered on 06/19/17 09:14; Admin Dose 300 MG; Start 06/12/17 at 13:00 Saccharomyces Boulardii (Florastor) 250 mg BID PO Last administered on 09:15; Admin Dose 250 MG; Start 06/12/17 at 21:00 Tamsulosin HCl (Flomax) 0.8 mg HS PO Last administered on 06/18/17 21:35; Admin Dose 0.8 MG; Start 06/12/17 at 21:00 Ondansetron HCl (Zofran Inj) 4 mg Q6H PRN IV NAUSEA AND/OR VOMITING; Start at 12:30 Acetaminophen (Tylenol Tab) 650 mg Q6H PRN PO PAIN LEVEL 1-3 OR FEVER; Start at 12:30 Acetaminophen (Tylenol Supp) 650 mg Q6H PRN [place] PAIN LEVEL 1-3 OR FEVER; Start 06/12/17 at 12:30 Acetaminophen/ Hydrocodone Bitart ([place] (5/325)) 1 tab Q6H PRN PO MODERATE PAIN LEVEL 4-6 Last administered on 06/13/17 08:36; Admin Dose 1 TAB; Start at 12:30 Acetaminophen/ Hydrocodone Bitart ([place] (5/325)) 2 tab Q6H PRN PO SEVERE PAIN LEVEL 7-10; Start 06/12/17 at 12:30 Morphine Sulfate (morphine) 2 mg Q4H PRN IV SEVERE PAIN LEVEL 7-10; Start 06/12 at 12:30 Docusate Sodium (Colace) 100 mg Q12H PRN PO CONSTIPATION; Start 06/12/17 at 12: 30 Magnesium Hydroxide (Milk Of Mag) 30 ml DAILY PRN PO CONSTIPATION; Start at 12:30 Bisacodyl (Dulcolax Supp) 10 mg DAILY PRN [place] CONSTIPATION; Start 06/12/17 at 12 :30 Morphine Sulfate (morphine) 2 mg Q2 PRN IV PAIN LEVEL 4-7 Last administered on 06/13/17 05:15; Admin Dose 2 MG; Start 06/12/17 at 14:30 IV Flush 10 ml 10 ml PRN PRN IV IV PROTOCOL; Start 06/13/17 at 14:00 Meropenem/Sodium Chloride (Merrem 1 Gm/50 ml (Pmx)) 50 ml @ 100 mls/hr Q12 IVPB Last administered on 06/19/17 09:14; Admin Dose 100 MLS/HR; Start at 21:00 Pantoprazole (Protonix Iv) 40 mg BID@06,18 IV Last administered on 06/19/17 18 :36; Admin Dose 40 MG; Start 06/13/17 at 18:00 Ferrous Sulfate (Feosol Liquid Cup) 300 mg DAILY NGT Last administered on 09:14; Admin Dose 300 MG; Start 06/14/17 at 10:00 Mupirocin (Bactroban) 1 applic BID TOP Last administered on 06/19/17 09:16; Admin Dose 1 APPLIC; Start 06/14/17 at 21:00 Valproate Sodium (Depakene Liquid Cup) 500 mg DAILY NGT Last administered on 09:14; Admin Dose 500 MG; Start 06/14/17 at 16:00 Multivitamins 30 ml 30 ml DAILY NGT Last administered on 06/19/17 09:16; Admin Dose 30 ML; Start 06/15/17 at 09:30 Vancomycin HCl (Vancocin) 250 ml @ 125 mls/hr Q12H IVPB Last administered on 06/19/17 10:21; Admin Dose 125 MLS/HR; Start 06/15/17 at 22:00 Amiodarone HCl (Cordarone) 400 mg BID PO Last administered on 06/19/17 09:15; Admin Dose 400 MG; Start 06/17/17 at 21:00 Miscellaneous Information (*Rx Drug Level Order Reminder*) VANCOMYCIN TROUGH AT 2100 ONCE ONCE XX ; Start 06/19/17 at 21:00; Stop 06/19/17 at 21:01 MIREYA HAMPTON NP Jun 19, 2017 19:25
[2017-06-19] MEDS: ATORVASTATIN 20 MG TAB PO SCH (22:00)
[2017-06-19] MEDS: TAMSULOSIN (SR) 0.4 MG CAP PO SCH (22:02)
[2017-06-20] VITALS (14 sets, daily range): BP systolic 97–155; BP diastolic 56–79; PULSE 44–160; RESP 16–20
[2017-06-20] MEDS: ALBUTEROL/IPRATROPIUM (NEB) 3 ML AMP NEB SCH ×6 (00:58→20:26)
[2017-06-20] MEDS: PANTOPRAZOLE 40 MG INJ IV SCH ×2 (06:10→17:37)
[2017-06-20] MEDS: ALTEPLASE (CATHFLO) 2 MG INJ CATHETER PRN ×2 (06:15→06:22)
--- NOTE | 2017-06-20 07:35 | CONS ---
Date/Time of Note Date/Time of Note DATE: 06/20/17 TIME: 07:32 Assessment/Plan Assessment/Plan Chief Complaint/Hosp Course Septic shock off IV pressor Paroxysmal atrial fibrillation with rapid ventricular rates Respiratory failure status post extubation Acute kidney injury Preserved ejection fraction Acute blood loss anemia status post blood transfusion Problems: Additional Assessment/Plan continue amiodarone 400 po bid ,to be reduced in coming days no ac Consultation Date/Type/Reason Admit Date/Time Jun 12, 2017 at 11:47 Initial Consult Date 06/13/17 Type of Consultation: cv Referring Provider: LETI LOPEZ 24 HR Interval Summary Free Text/Dictation no distress, no chest pain, no sob, no palpitations, converted into afib last night, initially 150 bpm, now controlled Detailed Summary Respiratory: no complaints Cardiovascular: no complaints Gastrointestinal: no complaints Musculoskeletal: no complaints Skin: no complaints Neurologic: no complaints Lymphatic: no complaints Exam/Review of Systems Vital Signs Vitals Vital Signs Date Time Temp Pulse Resp B/P Pulse Ox O2 Delivery O2 Flow Rate FiO2 06/20/17 07:29 98.0 90 18 142/79 96 06/20/17 05:10 3.0 06/20/17 05:10 Nasal Cannula 06/16/17 11:40 30 Intake and Output 06/19/17 06/19/17 06/20/17 15:00 23:00 07:00 Intake Total 100 ml 250 ml 450 ml Output Total 1200 ml 1300 ml Balance 100 ml -950 ml -850 ml Exam Constitutional: frail Head: atraumatic, normocephalic Neck: supple Respiratory: clear to auscultation Cardiovascular: irregular rhythm Gastrointestinal: soft Musculoskeletal: nl extremities to inspection Extremities: normal pulses Results Result Diagram: 06/19/17 0821 06/19/17 0821 Results 24 hrs Laboratory Tests Test 06/19/17 08:21 06/19/17 21:20 White Blood Count 6.6 # Red Blood Count 3.06 L Hemoglobin 9.2 L Hematocrit 29.2 L Mean Corpuscular Volume 95.4 Mean Corpuscular Hemoglobin 30.1 Mean Corpuscular Hemoglobin Concent 31.5 L Red Cell Distribution Width 17.4 H Platelet Count 346 Mean Platelet Volume 11.9 H Neutrophils % 64.9 Lymphocytes % 16.7 Monocytes % 13.4 H Eosinophils % 3.6 Basophils % 0.6 Nucleated Red Blood Cells % 0.0 Neutrophils # 4.3 Lymphocytes # 1.1 Monocytes # 0.9 Eosinophils # 0.2 Basophils # 0.0 Nucleated Red Blood Cells # 0.0 Sodium Level 147 H Potassium Level 4.1 Chloride Level 112 H Carbon Dioxide Level 28 Anion Gap 11 Blood Urea Nitrogen 18 Creatinine 0.86 Glucose Level 95 Calcium Level 8.3 L Phosphorus Level 2.8 Magnesium Level 2.2 Vancomycin Level Trough 14.0 Medications Medications Current Medications Ascorbic Acid (Vitamin C) 500 mg DAILY PO Last administered on 06/19/17 09:15 ; Admin Dose 500 MG; Start 06/13/17 at 09:00 Atorvastatin Calcium (Lipitor) 20 mg QHS PO Last administered on 06/19/17 22: 00; Admin Dose 20 MG; Start 06/12/17 at 21:00 Finasteride (Proscar) 5 mg DAILY PO Last administered on 06/19/17 09:15; Admin Dose 5 MG; Start 06/13/17 at 09:00 Gabapentin (Neurontin) 300 mg TID PO Last administered on 06/19/17 22:02; Admin Dose 300 MG; Start 06/12/17 at 13:00 Saccharomyces Boulardii (Florastor) 250 mg BID PO Last administered on 22:00; Admin Dose 250 MG; Start 06/12/17 at 21:00 Tamsulosin HCl (Flomax) 0.8 mg HS PO Last administered on 06/19/17 22:02; Admin Dose 0.8 MG; Start 06/12/17 at 21:00 Ondansetron HCl (Zofran Inj) 4 mg Q6H PRN IV NAUSEA AND/OR VOMITING; Start at 12:30 Acetaminophen (Tylenol Tab) 650 mg Q6H PRN PO PAIN LEVEL 1-3 OR FEVER; Start at 12:30 Acetaminophen (Tylenol Supp) 650 mg Q6H PRN [place] PAIN LEVEL 1-3 OR FEVER; Start 06/12/17 at 12:30 Acetaminophen/ Hydrocodone Bitart ([place] (5/325)) 1 tab Q6H PRN PO MODERATE PAIN LEVEL 4-6 Last administered on 06/13/17 08:36; Admin Dose 1 TAB; Start at 12:30 Acetaminophen/ Hydrocodone Bitart ([place] (5/325)) 2 tab Q6H PRN PO SEVERE PAIN LEVEL 7-10; Start 06/12/17 at 12:30 Morphine Sulfate (morphine) 2 mg Q4H PRN IV SEVERE PAIN LEVEL 7-10; Start 06/12 at 12:30 Docusate Sodium (Colace) 100 mg Q12H PRN PO CONSTIPATION; Start 06/12/17 at 12: 30 Magnesium Hydroxide (Milk Of Mag) 30 ml DAILY PRN PO CONSTIPATION; Start at 12:30 Bisacodyl (Dulcolax Supp) 10 mg DAILY PRN [place] CONSTIPATION; Start 06/12/17 at 12 :30 Morphine Sulfate (morphine) 2 mg Q2 PRN IV PAIN LEVEL 4-7 Last administered on 06/13/17 05:15; Admin Dose 2 MG; Start 06/12/17 at 14:30 IV Flush 10 ml 10 ml PRN PRN IV IV PROTOCOL; Start 06/13/17 at 14:00 Meropenem/Sodium Chloride (Merrem 1 Gm/50 ml (Pmx)) 50 ml @ 100 mls/hr Q12 IVPB Last administered on 06/19/17 22:00; Admin Dose 100 MLS/HR; Start at 21:00 Pantoprazole (Protonix Iv) 40 mg BID@06,18 IV Last administered on 06/20/17 06 :10; Admin Dose 40 MG; Start 06/13/17 at 18:00 Ferrous Sulfate (Feosol Liquid Cup) 300 mg DAILY NGT Last administered on 09:14; Admin Dose 300 MG; Start 06/14/17 at 10:00 Mupirocin (Bactroban) 1 applic BID TOP Last administered on 06/19/17 22:03; Admin Dose 1 APPLIC; Start 06/14/17 at 21:00 Valproate Sodium (Depakene Liquid Cup) 500 mg DAILY NGT Last administered on 09:14; Admin Dose 500 MG; Start 06/14/17 at 16:00 Multivitamins 30 ml 30 ml DAILY NGT Last administered on 06/19/17 09:16; Admin Dose 30 ML; Start 06/15/17 at 09:30 Vancomycin HCl (Vancocin) 250 ml @ 125 mls/hr Q12H IVPB Last administered on 06/19/17 23:11; Admin Dose 125 MLS/HR; Start 06/15/17 at 22:00 Amiodarone HCl (Cordarone) 400 mg BID PO Last administered on 06/19/17 22:02; Admin Dose 400 MG; Start 06/17/17 at 21:00 KEMAR SCHULZ MD Jun 20, 2017 07:35
[2017-06-20] MEDS: MEROPENEM 1 GM/50ML(PMX) 50 ML IVPB SCH ×2 (08:37→21:57)
[2017-06-20] MEDS: FERROUS SULFATE 60 MG/ML 5ML CUP NGT SCH (08:38)
[2017-06-20] MEDS: ASCORBIC ACID 500 MG TAB PO SCH (08:38)
[2017-06-20] MEDS: MULTIVITAMINS 30 ML CUP NGT SCH (08:38)
[2017-06-20] MEDS: FINASTERIDE 5 MG TAB PO SCH (08:38)
[2017-06-20] MEDS: GABAPENTIN 300 MG CAP PO SCH ×3 (08:38→21:58)
[2017-06-20] MEDS: SACCHAROMYCES BOULARDII 250 MG CAP PO SCH ×2 (08:38→21:58)
[2017-06-20] MEDS: VALPROIC ACID LIQUID CUP 250 MG/5 ML CUP NGT SCH (08:38)
[2017-06-20] MEDS: AMIODARONE 200 MG TAB PO SCH ×2 (08:39→21:58)
[2017-06-20] MEDS: MUPIROCIN 2% 22 GM OINT TOP SCH ×2 (08:40→21:58)
[2017-06-20 08:44] LABS: BASOPHILS % 0.5 % (0.0-2.0); EOSINOPHILS # 0.3 10^3/ul (0.0-0.5); EOSINOPHILS % 4.3 % (0.0-7.0); HEMATOCRIT 30.1 % (42.0-52.0); HEMOGLOBIN 9.6 g/dl (14.0-18.0); LYMPHOCYTES # 1.3 10^3/ul (0.8-2.9); LYMPHOCYTES % 20.5 % (15.0-51.0); MEAN CORPUSCULAR HEMOGLOBIN 30.8 pg (29.0-33.0); MEAN CORPUSCULAR HGB CONC 31.9 g/dl (32.0-37.0); MEAN CORPUSCULAR VOLUME 96.5 fl (82.0-101.0); MEAN PLATELET VOLUME 12.2 fl (7.4-10.4); MONOCYTE # 0.8 10^3/ul (0.3-0.9); MONOCYTES % 11.8 % (0.0-11.0); NEUTROPHILS % 62.4 % (39.0-77.0); PLATELET COUNT 357 10^3/UL (140-415); RED BLOOD COUNT 3.12 10^6/ul (4.70-6.10); RED CELL DISTRIBUTION WIDTH 16.8 % (11.5-14.5); WHITE BLOOD COUNT 6.3 10^3/ul (4.8-10.8)
--- NOTE | 2017-06-20 08:45 | RADRPT ---
PROCEDURE: XR Chest. CLINICAL INDICATION: Shortness of breath. TECHNIQUE: Single frontal view. COMPARISON: 06/17/2017. FINDINGS: The left arm PICC line and nasogastric tube remain in satisfactory position. There is patchy bilater al pulmonary airspace disease in the mid and lower lung zones, unchanged with left worse than right. The lungs are otherwise clear. The heart size is normal. There is calcification in the aorta consistent with atherosclerosis. There is no pleural effusion. There is no pneumothorax. IMPRESSION: 1. No change from 06/17/2017. RPTAT: QQ .Karl Rebollar MD, MD Date Time Electronically viewed and signed by .Karl Rebollar MD, MD on 06/20/2017 08:45 .R/
[2017-06-20 09:04] LABS: PHOSPHORUS 2.6 mg/dl (2.5-4.9)
[2017-06-20 09:11] LABS: CALCIUM 8.5 mg/dl (8.4-10.2); CREATININE 0.96 mg/dl (0.61-1.24); POTASSIUM 3.9 mmol/L (3.5-5.1)
--- NOTE | 2017-06-20 10:05 | PN ---
Date/Time of Note Date/Time of Note DATE: 06/20/17 TIME: 10:04 Assessment/Plan VTE Prophylaxis VTE Prophylaxis Intervention: contraindicated Lines/Catheters IV [facility] Type (from [facility] PICC Line Central line still needed: Yes Urinary Cath still in place: Yes Reason Cath still needed: other (indicate) Assessment/Plan Chief Complaint/Hosp Course 1. Status post sepsis with underlying septic shock secondary to aspiration pneumonia and urinary tract infection. On antibiotics as per infectious diseases. 2. Acute respiratory failure. Hypoxic. Status post intubation and extubation. Continue inhaled bronchodilators. 3. Dysphagia. Continue aspiration precautions. Speech therapy evaluation failed. ST to re-evaluate the patient. 4. Normocytic, normochromic anemia requiring blood transfusions most probably secondary to underlying gastric ulcer and antral gastritis. Continue PPI. 5. 3 active gastric ulcerations and severe antral gastritis. Continue PPI. Pathology from biopsy pending. 6. Atrial fibrillation with RVR. Status post evaluation by cardiology. On amiodarone. 7. Benign prostatic hypertrophy. Status post Lindsey catheter insertion by urology. Continue finasteride and tamsulosin. 8. Dementia. Continue supportive care. 9. Acute nonoliguric kidney injury. Most probably secondary to hemodynamics. Currently resolved. Status post evaluation by nephrology. 10. Seizure disorder. Continue anticonvulsants. 11. Fluids, electrolytes, and nutrition. N.p.o. 12. DVT prophylaxis. Contraindicated. 13. Gastrointestinal prophylaxis. Proton pump inhibitors. 14. Plan. Continue antimicrobials. Continue PPI. The patient's spouse wants to continue all the possible care as per the conversation with [employer]. In that case the patient probably needs an alternative form of nutrition since the patient is at very high risk for aspiration. Case discussed with Dr. Caruso. Problems: Subjective 24 Hr Interval Summary Free Text/Dictation Remains afebrile. Exam/Review of Systems Vital Signs Vitals Vital Signs Date Time Temp Pulse Resp B/P Pulse Ox O2 Delivery O2 Flow Rate FiO2 06/20/17 08:27 83 20 95 Nasal Cannula 3.0 06/20/17 07:29 98.0 142/79 06/16/17 11:40 30 Intake and Output 06/19/17 06/19/17 06/20/17 15:00 23:00 07:00 Intake Total 100 ml 250 ml 450 ml Output Total 1200 ml 1300 ml Balance 100 ml -950 ml -850 ml Exam General: Adequately build 72 year-old male lying in bed in no apparent distress. HEENT: Normocephalic, atraumatic. Eyes: Anicteric sclerae, conjunctivae clear. ENT: Nasal septum midline, oral mucosa is dry. Poor dentition. Neck supple, JVD noticed. Respiratory: Bilaterally diminished breath sounds. Use of accessory muscles of respiration. B/L coarse rales. Cardiovascular: S1, S2 heard. Abdomen: Soft, nontender, and nondistended. Bowel sounds positive in all 4 quadrants. Genitourinary: Deferred. Extremities: No cyanosis, no clubbing, no edema. Peripheral pulses palpable. Neurologic: The patient is awake and alert. Results Result Diagram: 06/20/1771506/20/17715 Results 24 hrs Laboratory Tests Test 06/19/17 21:20 06/20/17 07:16 Vancomycin Level Trough 14.0 White Blood Count 6.3 Red Blood Count 3.12 L Hemoglobin 9.6 L Hematocrit 30.1 L Mean Corpuscular Volume 96.5 Mean Corpuscular Hemoglobin 30.8 Mean Corpuscular Hemoglobin Concent 31.9 L Red Cell Distribution Width 16.8 H Platelet Count 357 Mean Platelet Volume 12.2 H Neutrophils % 62.4 Lymphocytes % 20.5 Monocytes % 11.8 H Eosinophils % 4.3 Basophils % 0.5 Nucleated Red Blood Cells % 0.0 Neutrophils # 4.0 Lymphocytes # 1.3 Monocytes # 0.8 Eosinophils # 0.3 Basophils # 0.0 Nucleated Red Blood Cells # 0.0 Sodium Level 142 Potassium Level 3.9 Chloride Level 107 Carbon Dioxide Level 28 Anion Gap 11 Blood Urea Nitrogen 18 Creatinine 0.96 Glucose Level 74 Calcium Level 8.5 Phosphorus Level 2.6 Magnesium Level 2.0 Medications Medications Current Medications Ascorbic Acid (Vitamin C) 500 mg DAILY PO Last administered on 06/20/17 08:38 ; Admin Dose 500 MG; Start 06/13/17 at 09:00 Atorvastatin Calcium (Lipitor) 20 mg QHS PO Last administered on 06/19/17 22: 00; Admin Dose 20 MG; Start 06/12/17 at 21:00 Finasteride (Proscar) 5 mg DAILY PO Last administered on 06/20/17 08:38; Admin Dose 5 MG; Start 06/13/17 at 09:00 Gabapentin (Neurontin) 300 mg TID PO Last administered on 06/20/17 08:38; Admin Dose 300 MG; Start 06/12/17 at 13:00 Saccharomyces Boulardii (Florastor) 250 mg BID PO Last administered on 08:38; Admin Dose 250 MG; Start 06/12/17 at 21:00 Tamsulosin HCl (Flomax) 0.8 mg HS PO Last administered on 06/19/17 22:02; Admin Dose 0.8 MG; Start 06/12/17 at 21:00 Ondansetron HCl (Zofran Inj) 4 mg Q6H PRN IV NAUSEA AND/OR VOMITING; Start at 12:30 Acetaminophen (Tylenol Tab) 650 mg Q6H PRN PO PAIN LEVEL 1-3 OR FEVER; Start at 12:30 Acetaminophen (Tylenol Supp) 650 mg Q6H PRN [place] PAIN LEVEL 1-3 OR FEVER; Start 06/12/17 at 12:30 Acetaminophen/ Hydrocodone Bitart ([place] (5/325)) 1 tab Q6H PRN PO MODERATE PAIN LEVEL 4-6 Last administered on 06/13/17 08:36; Admin Dose 1 TAB; Start at 12:30 Acetaminophen/ Hydrocodone Bitart ([place] (5/325)) 2 tab Q6H PRN PO SEVERE PAIN LEVEL 7-10; Start 06/12/17 at 12:30 Morphine Sulfate (morphine) 2 mg Q4H PRN IV SEVERE PAIN LEVEL 7-10; Start 06/12 at 12:30 Docusate Sodium (Colace) 100 mg Q12H PRN PO CONSTIPATION; Start 06/12/17 at 12: 30 Magnesium Hydroxide (Milk Of Mag) 30 ml DAILY PRN PO CONSTIPATION; Start at 12:30 Bisacodyl (Dulcolax Supp) 10 mg DAILY PRN [place] CONSTIPATION; Start 06/12/17 at 12 :30 Morphine Sulfate (morphine) 2 mg Q2 PRN IV PAIN LEVEL 4-7 Last administered on 06/13/17 05:15; Admin Dose 2 MG; Start 06/12/17 at 14:30 IV Flush 10 ml 10 ml PRN PRN IV IV PROTOCOL; Start 06/13/17 at 14:00 Meropenem/Sodium Chloride (Merrem 1 Gm/50 ml (Pmx)) 50 ml @ 100 mls/hr Q12 IVPB Last administered on 06/20/17 08:37; Admin Dose 100 MLS/HR; Start at 21:00 Pantoprazole (Protonix Iv) 40 mg BID@06,18 IV Last administered on 06/20/17 06 :10; Admin Dose 40 MG; Start 06/13/17 at 18:00 Ferrous Sulfate (Feosol Liquid Cup) 300 mg DAILY NGT Last administered on 08:38; Admin Dose 300 MG; Start 06/14/17 at 10:00 Mupirocin (Bactroban) 1 applic BID TOP Last administered on 06/20/17 08:40; Admin Dose 1 APPLIC; Start 06/14/17 at 21:00 Valproate Sodium (Depakene Liquid Cup) 500 mg DAILY NGT Last administered on 08:38; Admin Dose 500 MG; Start 06/14/17 at 16:00 Multivitamins 30 ml 30 ml DAILY NGT Last administered on 06/20/17 08:38; Admin Dose 30 ML; Start 06/15/17 at 09:30 Vancomycin HCl (Vancocin) 250 ml @ 125 mls/hr Q12H IVPB Last administered on 06/19/17 23:11; Admin Dose 125 MLS/HR; Start 06/15/17 at 22:00 Amiodarone HCl (Cordarone) 400 mg BID PO Last administered on 06/20/17 08:39; Admin Dose 400 MG; Start 06/17/17 at 21:00 ALEXANDRE ULLOA NP Jun 20, 2017 10:05
--- NOTE | 2017-06-20 11:24 | CONS ---
Date/Time of Note Date/Time of Note DATE: 06/20/17 TIME: 11:22 Assessment/Plan Assessment/Plan Additional Assessment/Plan Chest x-ray was reviewed from today which is showing complete resolution of left lower lobe pneumonia. Assessment and recommendations; 1. Patient admitted with respiratory failure due to severe pneumonia with marked clinical and radiological improvement. 2. Chronic atrial fibrillation. 3. Dementia. 4. Likely underlying COPD. Consider stopping antibiotics. Also consider discharge. Consultation Date/Type/Reason Admit Date/Time Jun 12, 2017 at 11:47 Initial Consult Date 06/13/17 Type of Consultation: Pulmonary Referring Provider: LETI LOPEZ 24 HR Interval Summary Free Text/Dictation Patient's condition is continually improving. Patient is much more awake and alert this morning. General exam; elderly male, awake and alert. Currently in no distress. Able to verbalize somewhat. Exam/Review of Systems Vital Signs Vitals Vital Signs Date Time Temp Pulse Resp B/P Pulse Ox O2 Delivery O2 Flow Rate FiO2 06/20/17 11:21 98.2 91 20 155/76 95 06/20/17 08:27 Nasal Cannula 3.0 06/16/17 11:40 30 Intake and Output 06/19/17 06/19/17 06/20/17 15:00 23:00 07:00 Intake Total 100 ml 250 ml 450 ml Output Total 1200 ml 1300 ml Balance 100 ml -950 ml -850 ml Exam HEENT exam; supple neck, no JVD. No lymphadenopathy. Midline trachea. No thyromegaly. Pharynx is clear. Patient has multiple carious teeth. Chest exam; diminished but clear breath sounds. S1-S2 audible, no murmurs. Irregular rhythm. Abdomen exam; soft, no organomegaly. Nontender. Bowel sounds audible. Extremity exam; no peripheral edema. Patient does have ecchymosis involving all 4 extremities. SR. [employer] exam; he is awake and moves all 4 extremities. Results Result Diagram: 06/20/17 0716 06/20/17715 Results 24 hrs Laboratory Tests Test 06/19/17 21:20 06/20/17 07:16 Vancomycin Level Trough 14.0 White Blood Count 6.3 Red Blood Count 3.12 L Hemoglobin 9.6 L Hematocrit 30.1 L Mean Corpuscular Volume 96.5 Mean Corpuscular Hemoglobin 30.8 Mean Corpuscular Hemoglobin Concent 31.9 L Red Cell Distribution Width 16.8 H Platelet Count 357 Mean Platelet Volume 12.2 H Neutrophils % 62.4 Lymphocytes % 20.5 Monocytes % 11.8 H Eosinophils % 4.3 Basophils % 0.5 Nucleated Red Blood Cells % 0.0 Neutrophils # 4.0 Lymphocytes # 1.3 Monocytes # 0.8 Eosinophils # 0.3 Basophils # 0.0 Nucleated Red Blood Cells # 0.0 Sodium Level 142 Potassium Level 3.9 Chloride Level 107 Carbon Dioxide Level 28 Anion Gap 11 Blood Urea Nitrogen 18 Creatinine 0.96 Glucose Level 74 Calcium Level 8.5 Phosphorus Level 2.6 Magnesium Level 2.0 Medications Medications Current Medications Ascorbic Acid (Vitamin C) 500 mg DAILY PO Last administered on 06/20/17 08:38 ; Admin Dose 500 MG; Start 06/13/17 at 09:00 Atorvastatin Calcium (Lipitor) 20 mg QHS PO Last administered on 06/19/17 22: 00; Admin Dose 20 MG; Start 06/12/17 at 21:00 Finasteride (Proscar) 5 mg DAILY PO Last administered on 06/20/17 08:38; Admin Dose 5 MG; Start 06/13/17 at 09:00 Gabapentin (Neurontin) 300 mg TID PO Last administered on 06/20/17 08:38; Admin Dose 300 MG; Start 06/12/17 at 13:00 Saccharomyces Boulardii (Florastor) 250 mg BID PO Last administered on 08:38; Admin Dose 250 MG; Start 06/12/17 at 21:00 Tamsulosin HCl (Flomax) 0.8 mg HS PO Last administered on 06/19/17 22:02; Admin Dose 0.8 MG; Start 06/12/17 at 21:00 Ondansetron HCl (Zofran Inj) 4 mg Q6H PRN IV NAUSEA AND/OR VOMITING; Start at 12:30 Acetaminophen (Tylenol Tab) 650 mg Q6H PRN PO PAIN LEVEL 1-3 OR FEVER; Start at 12:30 Acetaminophen (Tylenol Supp) 650 mg Q6H PRN [place] PAIN LEVEL 1-3 OR FEVER; Start 06/12/17 at 12:30 Acetaminophen/ Hydrocodone Bitart ([place] (5/325)) 1 tab Q6H PRN PO MODERATE PAIN LEVEL 4-6 Last administered on 06/13/17 08:36; Admin Dose 1 TAB; Start at 12:30 Acetaminophen/ Hydrocodone Bitart ([place] (5/325)) 2 tab Q6H PRN PO SEVERE PAIN LEVEL 7-10; Start 06/12/17 at 12:30 Morphine Sulfate (morphine) 2 mg Q4H PRN IV SEVERE PAIN LEVEL 7-10; Start 06/12 at 12:30 Docusate Sodium (Colace) 100 mg Q12H PRN PO CONSTIPATION; Start 06/12/17 at 12: 30 Magnesium Hydroxide (Milk Of Mag) 30 ml DAILY PRN PO CONSTIPATION; Start at 12:30 Bisacodyl (Dulcolax Supp) 10 mg DAILY PRN [place] CONSTIPATION; Start 06/12/17 at 12 :30 Morphine Sulfate (morphine) 2 mg Q2 PRN IV PAIN LEVEL 4-7 Last administered on 06/13/17 05:15; Admin Dose 2 MG; Start 06/12/17 at 14:30 IV Flush 10 ml 10 ml PRN PRN IV IV PROTOCOL; Start 06/13/17 at 14:00 Meropenem/Sodium Chloride (Merrem 1 Gm/50 ml (Pmx)) 50 ml @ 100 mls/hr Q12 IVPB Last administered on 06/20/17 08:37; Admin Dose 100 MLS/HR; Start at 21:00 Pantoprazole (Protonix Iv) 40 mg BID@06,18 IV Last administered on 06/20/17 06 :10; Admin Dose 40 MG; Start 06/13/17 at 18:00 Ferrous Sulfate (Feosol Liquid Cup) 300 mg DAILY NGT Last administered on 08:38; Admin Dose 300 MG; Start 06/14/17 at 10:00 Mupirocin (Bactroban) 1 applic BID TOP Last administered on 06/20/17 08:40; Admin Dose 1 APPLIC; Start 06/14/17 at 21:00 Valproate Sodium (Depakene Liquid Cup) 500 mg DAILY NGT Last administered on 08:38; Admin Dose 500 MG; Start 06/14/17 at 16:00 Multivitamins (Multivitamin) 30 ml DAILY NGT Last administered on 06/20/17 08: 38; Admin Dose 30 ML; Start 06/15/17 at 09:30 Amiodarone HCl (Cordarone) 400 mg BID PO Last administered on 06/20/17 08:39; Admin Dose 400 MG; Start 06/17/17 at 21:00 LIZ GRACIA Jun 20, 2017 11:24
--- NOTE | 2017-06-20 13:09 | CONS ---
Date/Time of Note Date/Time of Note DATE: 06/20/17 TIME: 13:09 Assessment/Plan Assessment/Plan Additional Assessment/Plan 72 yo male with 1) Severe Sepsis-Resolved 2) Pna, Possible aspiration 3) Resp Failure, vent- Resolved 4) DEEP in the setting of above, Urinary retention. Resolved 5) Likely BPH 6) Severe Anemia DEEP Resolved Renal function stable. Cont gentle IVFs Repeat Chemistry in am., Keep MAPs>65mmHg AVoid Nephrotoxic Rx, avoid hypotension. Will cont to closely follow along with you in ICU setting. Consultation Date/Type/Reason Admit Date/Time Jun 12, 2017 at 11:47 Initial Consult Date 06/12/17 Type of Consultation: Renal Referring Provider: LETI LOPEZ 24 HR Interval Summary Free Text/Dictation no new complaints Constitutional: requiring O2 Exam/Review of Systems Vital Signs Vitals Vital Signs Date Time Temp Pulse Resp B/P Pulse Ox O2 Delivery O2 Flow Rate FiO2 06/20/17 12:48 3.0 06/20/17 12:00 103 06/20/17 11:21 98.2 20 155/76 95 06/20/17 08:27 Nasal Cannula 06/16/17 11:40 30 Intake and Output 06/19/17 06/19/17 06/20/17 15:00 23:00 07:00 Intake Total 100 ml 250 ml 450 ml Output Total 1200 ml 1300 ml Balance 100 ml -950 ml -850 ml Exam Constitutional: frail, No distress Respiratory: crackles/rales, No diminished breath sounds Cardiovascular: regular rate and rhythm, No edema Gastrointestinal: soft Neurological: lethargic Results Result Diagram: 06/20/17 0716 06/20/17 0716 Results 24 hrs Laboratory Tests Test 06/19/17 21:20 06/20/17 07:16 Vancomycin Level Trough 14.0 White Blood Count 6.3 Red Blood Count 3.12 L Hemoglobin 9.6 L Hematocrit 30.1 L Mean Corpuscular Volume 96.5 Mean Corpuscular Hemoglobin 30.8 Mean Corpuscular Hemoglobin Concent 31.9 L Red Cell Distribution Width 16.8 H Platelet Count 357 Mean Platelet Volume 12.2 H Neutrophils % 62.4 Lymphocytes % 20.5 Monocytes % 11.8 H Eosinophils % 4.3 Basophils % 0.5 Nucleated Red Blood Cells % 0.0 Neutrophils # 4.0 Lymphocytes # 1.3 Monocytes # 0.8 Eosinophils # 0.3 Basophils # 0.0 Nucleated Red Blood Cells # 0.0 Sodium Level 142 Potassium Level 3.9 Chloride Level 107 Carbon Dioxide Level 28 Anion Gap 11 Blood Urea Nitrogen 18 Creatinine 0.96 Glucose Level 74 Calcium Level 8.5 Phosphorus Level 2.6 Magnesium Level 2.0 Medications Medications Current Medications Ascorbic Acid (Vitamin C) 500 mg DAILY PO Last administered on 06/20/17 08:38 ; Admin Dose 500 MG; Start 06/13/17 at 09:00 Atorvastatin Calcium (Lipitor) 20 mg QHS PO Last administered on 06/19/17 22: 00; Admin Dose 20 MG; Start 06/12/17 at 21:00 Finasteride (Proscar) 5 mg DAILY PO Last administered on 06/20/17 08:38; Admin Dose 5 MG; Start 06/13/17 at 09:00 Gabapentin (Neurontin) 300 mg TID PO Last administered on 06/20/17 08:38; Admin Dose 300 MG; Start 06/12/17 at 13:00 Saccharomyces Boulardii (Florastor) 250 mg BID PO Last administered on 08:38; Admin Dose 250 MG; Start 06/12/17 at 21:00 Tamsulosin HCl (Flomax) 0.8 mg HS PO Last administered on 06/19/17 22:02; Admin Dose 0.8 MG; Start 06/12/17 at 21:00 Ondansetron HCl (Zofran Inj) 4 mg Q6H PRN IV NAUSEA AND/OR VOMITING; Start at 12:30 Acetaminophen (Tylenol Tab) 650 mg Q6H PRN PO PAIN LEVEL 1-3 OR FEVER; Start at 12:30 Acetaminophen (Tylenol Supp) 650 mg Q6H PRN [place] PAIN LEVEL 1-3 OR FEVER; Start 06/12/17 at 12:30 Acetaminophen/ Hydrocodone Bitart ([place] (5/325)) 1 tab Q6H PRN PO MODERATE PAIN LEVEL 4-6 Last administered on 06/13/17 08:36; Admin Dose 1 TAB; Start at 12:30 Acetaminophen/ Hydrocodone Bitart ([place] (5/325)) 2 tab Q6H PRN PO SEVERE PAIN LEVEL 7-10; Start 06/12/17 at 12:30 Morphine Sulfate (morphine) 2 mg Q4H PRN IV SEVERE PAIN LEVEL 7-10; Start 06/12 at 12:30 Docusate Sodium (Colace) 100 mg Q12H PRN PO CONSTIPATION; Start 06/12/17 at 12: 30 Magnesium Hydroxide (Milk Of Mag) 30 ml DAILY PRN PO CONSTIPATION; Start at 12:30 Bisacodyl (Dulcolax Supp) 10 mg DAILY PRN [place] CONSTIPATION; Start 06/12/17 at 12 :30 Morphine Sulfate (morphine) 2 mg Q2 PRN IV PAIN LEVEL 4-7 Last administered on 06/13/17 05:15; Admin Dose 2 MG; Start 06/12/17 at 14:30 IV Flush 10 ml 10 ml PRN PRN IV IV PROTOCOL; Start 06/13/17 at 14:00 Meropenem/Sodium Chloride (Merrem 1 Gm/50 ml (Pmx)) 50 ml @ 100 mls/hr Q12 IVPB Last administered on 06/20/17 08:37; Admin Dose 100 MLS/HR; Start at 21:00 Pantoprazole (Protonix Iv) 40 mg BID@06,18 IV Last administered on 06/20/17 06 :10; Admin Dose 40 MG; Start 06/13/17 at 18:00 Ferrous Sulfate (Feosol Liquid Cup) 300 mg DAILY NGT Last administered on 08:38; Admin Dose 300 MG; Start 06/14/17 at 10:00 Mupirocin (Bactroban) 1 applic BID TOP Last administered on 06/20/17 08:40; Admin Dose 1 APPLIC; Start 06/14/17 at 21:00 Valproate Sodium (Depakene Liquid Cup) 500 mg DAILY NGT Last administered on 08:38; Admin Dose 500 MG; Start 06/14/17 at 16:00 Multivitamins (Multivitamin) 30 ml DAILY NGT Last administered on 06/20/17 08: 38; Admin Dose 30 ML; Start 06/15/17 at 09:30 Amiodarone HCl (Cordarone) 400 mg BID PO Last administered on 06/20/17 08:39; Admin Dose 400 MG; Start 06/17/17 at 21:00 ELVA VIDAL MD Jun 20, 2017 13:09
--- NOTE | 2017-06-20 13:44 | CONS ---
Date/Time of Note Date/Time of Note DATE: 06/20/17 TIME: 13:42 Assessment/Plan Assessment/Plan Chief Complaint/Hosp Course SUBJECTIVE DATA: No acute changes, lethargic, looks comfortable, no fevers INDWELLINGS: Lindsey, NG tube, PICC line. ANTIMICROBIALS: Vancomycin and meropenem PHYSICAL EXAMINATION: GENERAL: Chronically ill-appearing, elderly man, in no distress. HEENT: Head is atraumatic and normocephalic. Sclerae are anicteric. Buccal mucosa is dry. NECK: Supple. Trachea is midline. CHEST: Chest rise is symmetrical. Breath sounds with crackles. HEART: S1, S2. ABDOMEN: Soft. Bowel sounds are present. EXTREMITIES: Without cyanosis. ASSESSMENT: 1. S/p sepsis. 2. S/p Healthcare-associated pneumonia with ongoing aspiration secondary to significant secretion retention. 3. S/p Proteus mirabilis urinary tract infection. 4. Methicillin-resistant Staphylococcus aureus nares colonization. 5. Dementia. 6. History of benign prostatic hyperplasia. PLAN: The patient remains unchanged. Completed abx, continue present care, aspiration precautions, may need PEG DW staff Problems: Consultation Date/Type/Reason Admit Date/Time Jun 12, 2017 at 11:47 Initial Consult Date 06/13/17 Type of Consultation: ID Referring Provider: LETI LOPEZ Exam/Review of Systems Vital Signs Vitals Vital Signs Date Time Temp Pulse Resp B/P Pulse Ox O2 Delivery O2 Flow Rate FiO2 06/20/17 12:48 3.0 06/20/17 12:00 103 06/20/17 11:21 98.2 20 155/76 95 06/20/17 08:27 Nasal Cannula 06/16/17 11:40 30 Intake and Output 06/19/17 06/19/17 06/20/17 15:00 23:00 07:00 Intake Total 100 ml 250 ml 450 ml Output Total 1200 ml 1300 ml Balance 100 ml -950 ml -850 ml Results Result Diagram: 06/20/17 0716 06/20/17 0716 Results 24 hrs Laboratory Tests Test 06/19/17 21:20 06/20/17 07:16 Vancomycin Level Trough 14.0 White Blood Count 6.3 Red Blood Count 3.12 L Hemoglobin 9.6 L Hematocrit 30.1 L Mean Corpuscular Volume 96.5 Mean Corpuscular Hemoglobin 30.8 Mean Corpuscular Hemoglobin Concent 31.9 L Red Cell Distribution Width 16.8 H Platelet Count 357 Mean Platelet Volume 12.2 H Neutrophils % 62.4 Lymphocytes % 20.5 Monocytes % 11.8 H Eosinophils % 4.3 Basophils % 0.5 Nucleated Red Blood Cells % 0.0 Neutrophils # 4.0 Lymphocytes # 1.3 Monocytes # 0.8 Eosinophils # 0.3 Basophils # 0.0 Nucleated Red Blood Cells # 0.0 Sodium Level 142 Potassium Level 3.9 Chloride Level 107 Carbon Dioxide Level 28 Anion Gap 11 Blood Urea Nitrogen 18 Creatinine 0.96 Glucose Level 74 Calcium Level 8.5 Phosphorus Level 2.6 Magnesium Level 2.0 Medications Medications Current Medications Ascorbic Acid (Vitamin C) 500 mg DAILY PO Last administered on 06/20/17 08:38 ; Admin Dose 500 MG; Start 06/13/17 at 09:00 Atorvastatin Calcium (Lipitor) 20 mg QHS PO Last administered on 06/19/17 22: 00; Admin Dose 20 MG; Start 06/12/17 at 21:00 Finasteride (Proscar) 5 mg DAILY PO Last administered on 06/20/17 08:38; Admin Dose 5 MG; Start 06/13/17 at 09:00 Gabapentin (Neurontin) 300 mg TID PO Last administered on 06/20/17 08:38; Admin Dose 300 MG; Start 06/12/17 at 13:00 Saccharomyces Boulardii (Florastor) 250 mg BID PO Last administered on 08:38; Admin Dose 250 MG; Start 06/12/17 at 21:00 Tamsulosin HCl (Flomax) 0.8 mg HS PO Last administered on 06/19/17 22:02; Admin Dose 0.8 MG; Start 06/12/17 at 21:00 Ondansetron HCl (Zofran Inj) 4 mg Q6H PRN IV NAUSEA AND/OR VOMITING; Start at 12:30 Acetaminophen (Tylenol Tab) 650 mg Q6H PRN PO PAIN LEVEL 1-3 OR FEVER; Start at 12:30 Acetaminophen (Tylenol Supp) 650 mg Q6H PRN [place] PAIN LEVEL 1-3 OR FEVER; Start 06/12/17 at 12:30 Acetaminophen/ Hydrocodone Bitart ([place] (5/325)) 1 tab Q6H PRN PO MODERATE PAIN LEVEL 4-6 Last administered on 06/13/17 08:36; Admin Dose 1 TAB; Start at 12:30 Acetaminophen/ Hydrocodone Bitart ([place] (5/325)) 2 tab Q6H PRN PO SEVERE PAIN LEVEL 7-10; Start 06/12/17 at 12:30 Morphine Sulfate (morphine) 2 mg Q4H PRN IV SEVERE PAIN LEVEL 7-10; Start 06/12 at 12:30 Docusate Sodium (Colace) 100 mg Q12H PRN PO CONSTIPATION; Start 06/12/17 at 12: 30 Magnesium Hydroxide (Milk Of Mag) 30 ml DAILY PRN PO CONSTIPATION; Start at 12:30 Bisacodyl (Dulcolax Supp) 10 mg DAILY PRN [place] CONSTIPATION; Start 06/12/17 at 12 :30 Morphine Sulfate (morphine) 2 mg Q2 PRN IV PAIN LEVEL 4-7 Last administered on 06/13/17 05:15; Admin Dose 2 MG; Start 06/12/17 at 14:30 IV Flush 10 ml 10 ml PRN PRN IV IV PROTOCOL; Start 06/13/17 at 14:00 Meropenem/Sodium Chloride (Merrem 1 Gm/50 ml (Pmx)) 50 ml @ 100 mls/hr Q12 IVPB Last administered on 06/20/17 08:37; Admin Dose 100 MLS/HR; Start at 21:00 Pantoprazole (Protonix Iv) 40 mg BID@06,18 IV Last administered on 06/20/17 06 :10; Admin Dose 40 MG; Start 06/13/17 at 18:00 Ferrous Sulfate (Feosol Liquid Cup) 300 mg DAILY NGT Last administered on 08:38; Admin Dose 300 MG; Start 06/14/17 at 10:00 Mupirocin (Bactroban) 1 applic BID TOP Last administered on 06/20/17 08:40; Admin Dose 1 APPLIC; Start 06/14/17 at 21:00 Valproate Sodium (Depakene Liquid Cup) 500 mg DAILY NGT Last administered on 08:38; Admin Dose 500 MG; Start 06/14/17 at 16:00 Multivitamins (Multivitamin) 30 ml DAILY NGT Last administered on 06/20/17 08: 38; Admin Dose 30 ML; Start 06/15/17 at 09:30 Amiodarone HCl (Cordarone) 400 mg BID PO Last administered on 06/20/17 08:39; Admin Dose 400 MG; Start 06/17/17 at 21:00 MIREYA HAMPTON NP Jun 20, 2017 13:44
--- NOTE | 2017-06-20 20:46 | PN ---
Date/Time of Note Date/Time of Note DATE: 06/20/17 TIME: 20:46 Assessment/Plan VTE Prophylaxis VTE Prophylaxis Intervention: SCD's Lines/Catheters IV [facility] PICC Line Urinary Cath still in place: Yes Assessment/Plan Chief Complaint/Hosp Course Summary of Assessment and Plan Assessment: Severe anemia No overt GI bleeding Sepsis/pneumonia Acute renal failure/improved Organic brain syndrome Plan: Continue present regimen EGD tomorrow. Patient's POA informed of procedure including risks benefits and alternatives. She is agreeable to proceed Subjective: Course reviewed with nursing staff Patient interviewed and examined All labs, imaging and other results reviewed The patient now extubated Will plan EGD tomorrow Exam: General: Well developed, well nourished Skin: No lesions, no stigmata chronic liver disease, no evidence of bleeding diathesis Lymphatic: No palpable lymphadenopathy HEENT: No lesions Cardiovascular: Heart: Regular rate and rhythm, no murmurs, gallops or rubs. Peripheral pulses present within normal limits, no cyanosis, clubbing or edemas. No pulsatile abdominal mass Respiratory: Crackles bilaterally. Otherwise lungs clear to auscultation and percussion, no wheezing, no rubs Gastrointestinal and Liver: Abdomen: Soft, non tender, non-distended, no hernias , no masses, no organomegaly, no ascites, no guarding, no rebound tenderness, normoactive bowel sounds. Extremities: No cyanosis, clubbing, or edema. Diagnostic Studies: Available data and images were reviewed personally. See reports. Significant results and findings are addressed here or in the assessment and plan. Problems: Exam/Review of Systems Vital Signs Vitals Vital Signs Date Time Temp Pulse Resp B/P Pulse Ox O2 Delivery O2 Flow Rate FiO2 06/20/17 20:40 3.0 06/20/17 20:40 68 20 95 Nasal Cannula 06/20/17 20:09 98.1 97/56 06/16/17 11:40 30 Intake and Output 06/19/17 06/19/17 06/20/17 15:00 23:00 07:00 Intake Total 100 ml 250 ml 450 ml Output Total 1200 ml 1300 ml Balance 100 ml -950 ml -850 ml Results Result Diagram: 06/20/17 0716 06/20/17 0716 Results 24 hrs Laboratory Tests Test 06/19/17 21:20 06/20/17 07:16 Vancomycin Level Trough 14.0 White Blood Count 6.3 Red Blood Count 3.12 L Hemoglobin 9.6 L Hematocrit 30.1 L Mean Corpuscular Volume 96.5 Mean Corpuscular Hemoglobin 30.8 Mean Corpuscular Hemoglobin Concent 31.9 L Red Cell Distribution Width 16.8 H Platelet Count 357 Mean Platelet Volume 12.2 H Neutrophils % 62.4 Lymphocytes % 20.5 Monocytes % 11.8 H Eosinophils % 4.3 Basophils % 0.5 Nucleated Red Blood Cells % 0.0 Neutrophils # 4.0 Lymphocytes # 1.3 Monocytes # 0.8 Eosinophils # 0.3 Basophils # 0.0 Nucleated Red Blood Cells # 0.0 Sodium Level 142 Potassium Level 3.9 Chloride Level 107 Carbon Dioxide Level 28 Anion Gap 11 Blood Urea Nitrogen 18 Creatinine 0.96 Glucose Level 74 Calcium Level 8.5 Phosphorus Level 2.6 Magnesium Level 2.0 Medications Medications Current Medications Ascorbic Acid (Vitamin C) 500 mg DAILY PO Last administered on 06/20/17 08:38 ; Admin Dose 500 MG; Start 06/13/17 at 09:00 Atorvastatin Calcium (Lipitor) 20 mg QHS PO Last administered on 06/19/17 22: 00; Admin Dose 20 MG; Start 06/12/17 at 21:00 Finasteride (Proscar) 5 mg DAILY PO Last administered on 06/20/17 08:38; Admin Dose 5 MG; Start 06/13/17 at 09:00 Gabapentin (Neurontin) 300 mg TID PO Last administered on 06/20/17 14:28; Admin Dose 300 MG; Start 06/12/17 at 13:00 Saccharomyces Boulardii (Florastor) 250 mg BID PO Last administered on 08:38; Admin Dose 250 MG; Start 06/12/17 at 21:00 Tamsulosin HCl (Flomax) 0.8 mg HS PO Last administered on 06/19/17 22:02; Admin Dose 0.8 MG; Start 06/12/17 at 21:00 Ondansetron HCl (Zofran Inj) 4 mg Q6H PRN IV NAUSEA AND/OR VOMITING; Start at 12:30 Acetaminophen (Tylenol Tab) 650 mg Q6H PRN PO PAIN LEVEL 1-3 OR FEVER; Start at 12:30 Acetaminophen (Tylenol Supp) 650 mg Q6H PRN [place] PAIN LEVEL 1-3 OR FEVER; Start 06/12/17 at 12:30 Acetaminophen/ Hydrocodone Bitart ([place] (5/325)) 1 tab Q6H PRN PO MODERATE PAIN LEVEL 4-6 Last administered on 06/13/17 08:36; Admin Dose 1 TAB; Start at 12:30 Acetaminophen/ Hydrocodone Bitart ([place] (5/325)) 2 tab Q6H PRN PO SEVERE PAIN LEVEL 7-10; Start 06/12/17 at 12:30 Morphine Sulfate (morphine) 2 mg Q4H PRN IV SEVERE PAIN LEVEL 7-10; Start 06/12 at 12:30 Docusate Sodium (Colace) 100 mg Q12H PRN PO CONSTIPATION; Start 06/12/17 at 12: 30 Magnesium Hydroxide (Milk Of Mag) 30 ml DAILY PRN PO CONSTIPATION; Start at 12:30 Bisacodyl (Dulcolax Supp) 10 mg DAILY PRN [place] CONSTIPATION; Start 06/12/17 at 12 :30 Morphine Sulfate (morphine) 2 mg Q2 PRN IV PAIN LEVEL 4-7 Last administered on 06/13/17 05:15; Admin Dose 2 MG; Start 06/12/17 at 14:30 IV Flush 10 ml 10 ml PRN PRN IV IV PROTOCOL; Start 06/13/17 at 14:00 Meropenem/Sodium Chloride (Merrem 1 Gm/50 ml (Pmx)) 50 ml @ 100 mls/hr Q12 IVPB Last administered on 06/20/17 08:37; Admin Dose 100 MLS/HR; Start at 21:00 Pantoprazole (Protonix Iv) 40 mg BID@06,18 IV Last administered on 06/20/17 17 :37; Admin Dose 40 MG; Start 06/13/17 at 18:00 Ferrous Sulfate (Feosol Liquid Cup) 300 mg DAILY NGT Last administered on 08:38; Admin Dose 300 MG; Start 06/14/17 at 10:00 Mupirocin (Bactroban) 1 applic BID TOP Last administered on 06/20/17 08:40; Admin Dose 1 APPLIC; Start 06/14/17 at 21:00 Valproate Sodium (Depakene Liquid Cup) 500 mg DAILY NGT Last administered on 08:38; Admin Dose 500 MG; Start 06/14/17 at 16:00 Multivitamins (Multivitamin) 30 ml DAILY NGT Last administered on 06/20/17 08: 38; Admin Dose 30 ML; Start 06/15/17 at 09:30 Amiodarone HCl (Cordarone) 400 mg BID PO Last administered on 06/20/17 08:39; Admin Dose 400 MG; Start 06/17/17 at 21:00 DEN PITTMAN MD Jun 20, 2017 20:46
[2017-06-20] MEDS: ATORVASTATIN 20 MG TAB PO SCH (21:58)
[2017-06-20] MEDS: TAMSULOSIN (SR) 0.4 MG CAP PO SCH (21:58)
[2017-06-21] VITALS (24 sets, daily range): BP systolic 86–142; BP diastolic 54–87; PULSE 56–84; RESP 16–48
[2017-06-21] MEDS: ALBUTEROL/IPRATROPIUM (NEB) 3 ML AMP NEB SCH ×6 (01:12→21:14)
[2017-06-21] MEDS: PANTOPRAZOLE 40 MG INJ IV SCH ×2 (05:21→17:19)
[2017-06-21 06:12] LABS: BASOPHILS % 0.7 % (0.0-2.0); EOSINOPHILS # 0.4 10^3/ul (0.0-0.5); EOSINOPHILS % 6.1 % (0.0-7.0); HEMATOCRIT 30.4 % (42.0-52.0); HEMOGLOBIN 9.9 g/dl (14.0-18.0); LYMPHOCYTES # 1.9 10^3/ul (0.8-2.9); LYMPHOCYTES % 30.6 % (15.0-51.0); MEAN CORPUSCULAR HEMOGLOBIN 30.5 pg (29.0-33.0); MEAN CORPUSCULAR HGB CONC 32.6 g/dl (32.0-37.0); MEAN CORPUSCULAR VOLUME 93.5 fl (82.0-101.0); MEAN PLATELET VOLUME 12.1 fl (7.4-10.4); MONOCYTE # 0.8 10^3/ul (0.3-0.9); MONOCYTES % 12.4 % (0.0-11.0); NEUTROPHILS % 49.9 % (39.0-77.0); PLATELET COUNT 403 10^3/UL (140-415); RED BLOOD COUNT 3.25 10^6/ul (4.70-6.10); RED CELL DISTRIBUTION WIDTH 16.8 % (11.5-14.5)
[2017-06-21 06:58] LABS: MAGNESIUM 2.1 mg/dl (1.7-2.5); PHOSPHORUS 3.1 mg/dl (2.5-4.9)
[2017-06-21 07:14] LABS: CALCIUM 8.2 mg/dl (8.4-10.2); POTASSIUM 4.1 mmol/L (3.5-5.1)
--- NOTE | 2017-06-21 07:39 | CONS ---
Date/Time of Note Date/Time of Note DATE: 06/21/17 TIME: 07:38 Assessment/Plan Assessment/Plan Chief Complaint/Hosp Course Septic shock off IV pressor Paroxysmal atrial fibrillation with rapid ventricular rates Respiratory failure status post extubation Acute kidney injury Preserved ejection fraction Acute blood loss anemia status post blood transfusion Problems: Additional Assessment/Plan will change amiodarone to 200 tid Consultation Date/Type/Reason Admit Date/Time Jun 12, 2017 at 11:47 Initial Consult Date 06/13/17 Type of Consultation: cv Referring Provider: LETI LOPEZ 24 HR Interval Summary Free Text/Dictation frail, no distress, no chest pain or sob Detailed Summary Respiratory: no complaints Cardiovascular: no complaints Gastrointestinal: no complaints Musculoskeletal: no complaints Skin: no complaints Neurologic: no complaints Endocrine: no complaints Exam/Review of Systems Vital Signs Vitals Vital Signs Date Time Temp Pulse Resp B/P Pulse Ox O2 Delivery O2 Flow Rate FiO2 06/21/17 07:11 98.2 67 18 110/56 96 06/21/17 04:35 Nasal Cannula 3.0 Intake and Output 06/20/17 06/20/17 06/21/17 15:00 23:00 07:00 Intake Total 300 ml 260 ml Output Total 450 ml 350 ml Balance -150 ml -90 ml Exam Constitutional: frail Head: atraumatic, normocephalic Neck: supple Respiratory: clear to auscultation Cardiovascular: regular rate and rhythm Gastrointestinal: soft Musculoskeletal: nl extremities to inspection Extremities: normal pulses Results Result Diagram: 06/21/17 0537 06/21/17 0535 Results 24 hrs Laboratory Tests Test 06/21/17 05:35 06/21/17 05:37 06/21/17 05:48 Sodium Level 143 Potassium Level 4.1 Chloride Level 108 Carbon Dioxide Level 28 Anion Gap 11 Blood Urea Nitrogen 22 H Creatinine 1.00 Glucose Level 86 Calcium Level 8.2 L White Blood Count 6.0 Red Blood Count 3.25 L Hemoglobin 9.9 L Hematocrit 30.4 L Mean Corpuscular Volume 93.5 Mean Corpuscular Hemoglobin 30.5 Mean Corpuscular Hemoglobin Concent 32.6 Red Cell Distribution Width 16.8 H Platelet Count 403 Mean Platelet Volume 12.1 H Neutrophils % 49.9 Lymphocytes % 30.6 Monocytes % 12.4 H Eosinophils % 6.1 Basophils % 0.7 Nucleated Red Blood Cells % 0.0 Neutrophils # 3.0 Lymphocytes # 1.9 Monocytes # 0.8 Eosinophils # 0.4 Basophils # 0.0 Nucleated Red Blood Cells # 0.0 Phosphorus Level 3.1 Magnesium Level 2.1 Medications Medications Current Medications Ascorbic Acid (Vitamin C) 500 mg DAILY PO Last administered on 06/20/17 08:38 ; Admin Dose 500 MG; Start 06/13/17 at 09:00 Atorvastatin Calcium (Lipitor) 20 mg QHS PO Last administered on 06/20/17 21: 58; Admin Dose 20 MG; Start 06/12/17 at 21:00 Finasteride (Proscar) 5 mg DAILY PO Last administered on 06/20/17 08:38; Admin Dose 5 MG; Start 06/13/17 at 09:00 Gabapentin (Neurontin) 300 mg TID PO Last administered on 06/20/17 21:58; Admin Dose 300 MG; Start 06/12/17 at 13:00 Saccharomyces Boulardii (Florastor) 250 mg BID PO Last administered on 21:58; Admin Dose 250 MG; Start 06/12/17 at 21:00 Tamsulosin HCl (Flomax) 0.8 mg HS PO Last administered on 06/20/17 21:58; Admin Dose 0.8 MG; Start 06/12/17 at 21:00 Ondansetron HCl (Zofran Inj) 4 mg Q6H PRN IV NAUSEA AND/OR VOMITING; Start at 12:30 Acetaminophen (Tylenol Tab) 650 mg Q6H PRN PO PAIN LEVEL 1-3 OR FEVER; Start at 12:30 Acetaminophen (Tylenol Supp) 650 mg Q6H PRN [place] PAIN LEVEL 1-3 OR FEVER; Start 06/12/17 at 12:30 Acetaminophen/ Hydrocodone Bitart ([place] (5/325)) 1 tab Q6H PRN PO MODERATE PAIN LEVEL 4-6 Last administered on 06/13/17 08:36; Admin Dose 1 TAB; Start at 12:30 Acetaminophen/ Hydrocodone Bitart ([place] (5/325)) 2 tab Q6H PRN PO SEVERE PAIN LEVEL 7-10; Start 06/12/17 at 12:30 Morphine Sulfate (morphine) 2 mg Q4H PRN IV SEVERE PAIN LEVEL 7-10; Start 06/12 at 12:30 Docusate Sodium (Colace) 100 mg Q12H PRN PO CONSTIPATION; Start 06/12/17 at 12: 30 Magnesium Hydroxide (Milk Of Mag) 30 ml DAILY PRN PO CONSTIPATION; Start at 12:30 Bisacodyl (Dulcolax Supp) 10 mg DAILY PRN [place] CONSTIPATION; Start 06/12/17 at 12 :30 Morphine Sulfate (morphine) 2 mg Q2 PRN IV PAIN LEVEL 4-7 Last administered on 06/13/17 05:15; Admin Dose 2 MG; Start 06/12/17 at 14:30 IV Flush 10 ml 10 ml PRN PRN IV IV PROTOCOL; Start 06/13/17 at 14:00 Meropenem/Sodium Chloride (Merrem 1 Gm/50 ml (Pmx)) 50 ml @ 100 mls/hr Q12 IVPB Last administered on 06/20/17 21:57; Admin Dose 100 MLS/HR; Start at 21:00 Pantoprazole (Protonix Iv) 40 mg BID@06,18 IV Last administered on 06/21/17 05 :21; Admin Dose 40 MG; Start 06/13/17 at 18:00 Ferrous Sulfate (Feosol Liquid Cup) 300 mg DAILY NGT Last administered on 08:38; Admin Dose 300 MG; Start 06/14/17 at 10:00 Mupirocin (Bactroban) 1 applic BID TOP Last administered on 06/20/17 21:58; Admin Dose 1 APPLIC; Start 06/14/17 at 21:00 Valproate Sodium (Depakene Liquid Cup) 500 mg DAILY NGT Last administered on 08:38; Admin Dose 500 MG; Start 06/14/17 at 16:00 Multivitamins (Multivitamin) 30 ml DAILY NGT Last administered on 06/20/17 08: 38; Admin Dose 30 ML; Start 06/15/17 at 09:30 Amiodarone HCl (Cordarone) 400 mg BID PO Last administered on 06/20/17 21:58; Admin Dose 400 MG; Start 06/17/17 at 21:00 KEMAR SCHULZ MD Jun 21, 2017 07:39
[2017-06-21] MEDS: GABAPENTIN 300 MG CAP PO SCH ×3 (08:33→20:25)
[2017-06-21] MEDS: FINASTERIDE 5 MG TAB PO SCH (08:33)
[2017-06-21] MEDS: SACCHAROMYCES BOULARDII 250 MG CAP PO SCH ×2 (08:33→20:25)
[2017-06-21] MEDS: ASCORBIC ACID 500 MG TAB PO SCH (08:33)
--- NOTE | 2017-06-21 08:33 | PN ---
Date/Time of Note Date/Time of Note DATE: 06/21/17 TIME: 08:29 Assessment/Plan VTE Prophylaxis VTE Prophylaxis Intervention: LMWH Lines/Catheters IV [facility] Type ([facility] PICC Line Central line still needed: Yes Urinary Cath still in place: Yes Reason Cath still needed: urinary retention, other (indicate) (Urethral strictures) Assessment/Plan Chief Complaint/Hosp Course Patient does have severe urethral strictures, urinary tract infection, and urinary retention. Renal function has improved Lindsey catheter is draining well and the urine is clear. Repeat urine culture today, keep the Lindsey catheter in and once the patient is active we'll discontinue the Lindsey catheter and see if he does void and empty his bladder Problems: Subjective 24 Hr Interval Summary Constitutional: disoriented Eyes: no complaints ENT: no complaints Respiratory: no complaints Cardiovascular: no complaints Gastrointestinal: no complaints Genitourinary: No bleeding, No hematuria Neurologic: confusion Exam/Review of Systems Vital Signs Vitals Vital Signs Date Time Temp Pulse Resp B/P Pulse Ox O2 Delivery O2 Flow Rate FiO2 06/21/17 07:11 98.2 67 18 110/56 96 06/21/17 04:35 Nasal Cannula 3.0 Intake and Output 06/20/17 06/20/17 06/21/17 15:00 23:00 07:00 Intake Total 300 ml 260 ml Output Total 450 ml 350 ml Balance -150 ml -90 ml Exam Constitutional: other (Restless trying to get out of bed) Psych: confusion Eyes: nl conjunctiva Neck: supple Respiratory: normal air movement Cardiovascular: No edema Gastrointestinal: soft Genitourinary - Male: other (Lindsey catheter draining clear urine, prior urine culture did show Proteus mirabilis and that was treated with Levaquin.) Extremities: No calf tenderness, No edema Results Result Diagram: 06/21/17 0537 06/21/17 0535 Results 24 hrs Laboratory Tests Test 06/21/17 05:35 06/21/17 05:37 06/21/17 05:48 Sodium Level 143 Potassium Level 4.1 Chloride Level 108 Carbon Dioxide Level 28 Anion Gap 11 Blood Urea Nitrogen 22 H Creatinine 1.00 Glucose Level 86 Calcium Level 8.2 L White Blood Count 6.0 Red Blood Count 3.25 L Hemoglobin 9.9 L Hematocrit 30.4 L Mean Corpuscular Volume 93.5 Mean Corpuscular Hemoglobin 30.5 Mean Corpuscular Hemoglobin Concent 32.6 Red Cell Distribution Width 16.8 H Platelet Count 403 Mean Platelet Volume 12.1 H Neutrophils % 49.9 Lymphocytes % 30.6 Monocytes % 12.4 H Eosinophils % 6.1 Basophils % 0.7 Nucleated Red Blood Cells % 0.0 Neutrophils # 3.0 Lymphocytes # 1.9 Monocytes # 0.8 Eosinophils # 0.4 Basophils # 0.0 Nucleated Red Blood Cells # 0.0 Phosphorus Level 3.1 Magnesium Level 2.1 Medications Medications Current Medications Ascorbic Acid (Vitamin C) 500 mg DAILY PO Last administered on 06/20/17 08:38 ; Admin Dose 500 MG; Start 06/13/17 at 09:00 Atorvastatin Calcium (Lipitor) 20 mg QHS PO Last administered on 06/20/17 21: 58; Admin Dose 20 MG; Start 06/12/17 at 21:00 Finasteride (Proscar) 5 mg DAILY PO Last administered on 06/20/17 08:38; Admin Dose 5 MG; Start 06/13/17 at 09:00 Gabapentin (Neurontin) 300 mg TID PO Last administered on 06/20/17 21:58; Admin Dose 300 MG; Start 06/12/17 at 13:00 Saccharomyces Boulardii (Florastor) 250 mg BID PO Last administered on 21:58; Admin Dose 250 MG; Start 06/12/17 at 21:00 Tamsulosin HCl (Flomax) 0.8 mg HS PO Last administered on 06/20/17 21:58; Admin Dose 0.8 MG; Start 06/12/17 at 21:00 Ondansetron HCl (Zofran Inj) 4 mg Q6H PRN IV NAUSEA AND/OR VOMITING; Start at 12:30 Acetaminophen (Tylenol Tab) 650 mg Q6H PRN PO PAIN LEVEL 1-3 OR FEVER; Start at 12:30 Acetaminophen (Tylenol Supp) 650 mg Q6H PRN [place] PAIN LEVEL 1-3 OR FEVER; Start 06/12/17 at 12:30 Acetaminophen/ Hydrocodone Bitart ([place] (5/325)) 1 tab Q6H PRN PO MODERATE PAIN LEVEL 4-6 Last administered on 06/13/17 08:36; Admin Dose 1 TAB; Start at 12:30 Acetaminophen/ Hydrocodone Bitart ([place] (5/325)) 2 tab Q6H PRN PO SEVERE PAIN LEVEL 7-10; Start 06/12/17 at 12:30 Morphine Sulfate (morphine) 2 mg Q4H PRN IV SEVERE PAIN LEVEL 7-10; Start 06/12 at 12:30 Docusate Sodium (Colace) 100 mg Q12H PRN PO CONSTIPATION; Start 06/12/17 at 12: 30 Magnesium Hydroxide (Milk Of Mag) 30 ml DAILY PRN PO CONSTIPATION; Start at 12:30 Bisacodyl (Dulcolax Supp) 10 mg DAILY PRN [place] CONSTIPATION; Start 06/12/17 at 12 :30 Morphine Sulfate (morphine) 2 mg Q2 PRN IV PAIN LEVEL 4-7 Last administered on 06/13/17 05:15; Admin Dose 2 MG; Start 06/12/17 at 14:30 IV Flush 10 ml 10 ml PRN PRN IV IV PROTOCOL; Start 06/13/17 at 14:00 Meropenem/Sodium Chloride (Merrem 1 Gm/50 ml (Pmx)) 50 ml @ 100 mls/hr Q12 IVPB Last administered on 06/20/17 21:57; Admin Dose 100 MLS/HR; Start at 21:00 Pantoprazole (Protonix Iv) 40 mg BID@06,18 IV Last administered on 06/21/17 05 :21; Admin Dose 40 MG; Start 06/13/17 at 18:00 Ferrous Sulfate (Feosol Liquid Cup) 300 mg DAILY NGT Last administered on 08:38; Admin Dose 300 MG; Start 06/14/17 at 10:00 Mupirocin (Bactroban) 1 applic BID TOP Last administered on 06/20/17 21:58; Admin Dose 1 APPLIC; Start 06/14/17 at 21:00 Valproate Sodium (Depakene Liquid Cup) 500 mg DAILY NGT Last administered on 08:38; Admin Dose 500 MG; Start 06/14/17 at 16:00 Multivitamins (Multivitamin) 30 ml DAILY NGT Last administered on 06/20/17 08: 38; Admin Dose 30 ML; Start 06/15/17 at 09:30 Amiodarone HCl (Cordarone) 200 mg TID PO ; Start 06/21/17 at 09:00 BALAJI PERSAUD MD Jun 21, 2017 08:33
[2017-06-21] MEDS: FERROUS SULFATE 60 MG/ML 5ML CUP NGT SCH (08:34)
[2017-06-21] MEDS: MULTIVITAMINS 30 ML CUP NGT SCH (08:34)
[2017-06-21] MEDS: VALPROIC ACID LIQUID CUP 250 MG/5 ML CUP NGT SCH (08:34)
[2017-06-21] MEDS: AMIODARONE 200 MG TAB PO SCH ×3 (08:34→20:25)
[2017-06-21] MEDS: MUPIROCIN 2% 22 GM OINT TOP SCH ×2 (08:35→20:26)
[2017-06-21] MEDS: MEROPENEM 1 GM/50ML(PMX) 50 ML IVPB SCH (08:38)
--- NOTE | 2017-06-21 09:33 | PN ---
Date/Time of Note Date/Time of Note DATE: 06/21/17 TIME: 09:33 Assessment/Plan VTE Prophylaxis VTE Prophylaxis Intervention: contraindicated Lines/Catheters [facility] PICC Line Central line still needed: Yes Urinary Cath still in place: Yes Reason Cath still needed: other (indicate) Assessment/Plan Chief Complaint/Hosp Course 1. Status post sepsis with underlying septic shock secondary to aspiration pneumonia and urinary tract infection. On antibiotics as per infectious diseases. 2. Acute respiratory failure. Hypoxic. Status post intubation and extubation. Continue inhaled bronchodilators. 3. Dysphagia. Continue aspiration precautions. Speech therapy evaluation failed. ST to re-evaluate the patient. 4. Normocytic, normochromic anemia requiring blood transfusions most probably secondary to underlying gastric ulcer and antral gastritis. Continue PPI. 5. 3 active gastric ulcerations and severe antral gastritis. Continue PPI. Pathology from biopsy pending. 6. Atrial fibrillation with RVR. Status post evaluation by cardiology. On amiodarone. 7. Benign prostatic hypertrophy. Status post Lindsey catheter insertion by urology. Continue finasteride and tamsulosin. 8. Dementia. Continue supportive care. 9. Acute nonoliguric kidney injury. Most probably secondary to hemodynamics. Currently resolved. Status post evaluation by nephrology. 10. Seizure disorder. Continue anticonvulsants. 11. Fluids, electrolytes, and nutrition. N.p.o. 12. DVT prophylaxis. Contraindicated. 13. Gastrointestinal prophylaxis. Proton pump inhibitors. 14. Plan. Continue antimicrobials. Continue PPI. The patient's spouse wants to continue all the possible care as per the conversation with [employer]. Had a conversation with the patient's Karime at [phone]. The patient 's wants to proceed with G-tube placement. Case discussed with Dr. Caruso. Problems: Subjective 24 Hr Interval Summary Free Text/Dictation No changes in status. Exam/Review of Systems Vital Signs Vitals Vital Signs Date Time Temp Pulse Resp B/P Pulse Ox O2 Delivery O2 Flow Rate FiO2 06/21/17 08:52 3.0 06/21/17 08:52 78 20 97 Nasal Cannula 06/21/17 07:11 98.2 110/56 Intake and Output 06/20/17 06/20/17 06/21/17 15:00 23:00 07:00 Intake Total 300 ml 260 ml Output Total 450 ml 350 ml Balance -150 ml -90 ml Exam General: Adequately build 72 year-old male lying in bed in no apparent distress. HEENT: Normocephalic, atraumatic. Eyes: Anicteric sclerae, conjunctivae clear. ENT: Nasal septum midline, oral mucosa is dry. Poor dentition. Neck supple, JVD noticed. Respiratory: Bilaterally diminished breath sounds. Use of accessory muscles of respiration. B/L coarse rales. Cardiovascular: S1, S2 heard. Abdomen: Soft, nontender, and nondistended. Bowel sounds positive in all 4 quadrants. Genitourinary: Deferred. Extremities: No cyanosis, no clubbing, no edema. Peripheral pulses palpable. Neurologic: The patient is awake and alert. Results Result Diagram: 06/21/1737 06/21/17 0535 Results 24 hrs Laboratory Tests Test 06/21/17 05:35 06/21/17 05:37 06/21/17 05:48 Sodium Level 143 Potassium Level 4.1 Chloride Level 108 Carbon Dioxide Level 28 Anion Gap 11 Blood Urea Nitrogen 22 H Creatinine 1.00 Glucose Level 86 Calcium Level 8.2 L White Blood Count 6.0 Red Blood Count 3.25 L Hemoglobin 9.9 L Hematocrit 30.4 L Mean Corpuscular Volume 93.5 Mean Corpuscular Hemoglobin 30.5 Mean Corpuscular Hemoglobin Concent 32.6 Red Cell Distribution Width 16.8 H Platelet Count 403 Mean Platelet Volume 12.1 H Neutrophils % 49.9 Lymphocytes % 30.6 Monocytes % 12.4 H Eosinophils % 6.1 Basophils % 0.7 Nucleated Red Blood Cells % 0.0 Neutrophils # 3.0 Lymphocytes # 1.9 Monocytes # 0.8 Eosinophils # 0.4 Basophils # 0.0 Nucleated Red Blood Cells # 0.0 Phosphorus Level 3.1 Magnesium Level 2.1 Medications Medications Current Medications Ascorbic Acid (Vitamin C) 500 mg DAILY PO Last administered on 06/21/17 08:33 ; Admin Dose 500 MG; Start 06/13/17 at 09:00 Atorvastatin Calcium (Lipitor) 20 mg QHS PO Last administered on 06/20/17 21: 58; Admin Dose 20 MG; Start 06/12/17 at 21:00 Finasteride (Proscar) 5 mg DAILY PO Last administered on 06/21/17 08:33; Admin Dose 5 MG; Start 06/13/17 at 09:00 Gabapentin (Neurontin) 300 mg TID PO Last administered on 06/21/17 08:33; Admin Dose 300 MG; Start 06/12/17 at 13:00 Saccharomyces Boulardii (Florastor) 250 mg BID PO Last administered on 08:33; Admin Dose 250 MG; Start 06/12/17 at 21:00 Tamsulosin HCl (Flomax) 0.8 mg HS PO Last administered on 06/20/17 21:58; Admin Dose 0.8 MG; Start 06/12/17 at 21:00 Ondansetron HCl (Zofran Inj) 4 mg Q6H PRN IV NAUSEA AND/OR VOMITING; Start at 12:30 Acetaminophen (Tylenol Tab) 650 mg Q6H PRN PO PAIN LEVEL 1-3 OR FEVER; Start at 12:30 Acetaminophen (Tylenol Supp) 650 mg Q6H PRN [place] PAIN LEVEL 1-3 OR FEVER; Start 06/12/17 at 12:30 Acetaminophen/ Hydrocodone Bitart ([place] (5/325)) 1 tab Q6H PRN PO MODERATE PAIN LEVEL 4-6 Last administered on 06/13/17 08:36; Admin Dose 1 TAB; Start at 12:30 Acetaminophen/ Hydrocodone Bitart ([place] (5/325)) 2 tab Q6H PRN PO SEVERE PAIN LEVEL 7-10; Start 06/12/17 at 12:30 Morphine Sulfate (morphine) 2 mg Q4H PRN IV SEVERE PAIN LEVEL 7-10; Start 06/12 at 12:30 Docusate Sodium (Colace) 100 mg Q12H PRN PO CONSTIPATION; Start 06/12/17 at 12: 30 Magnesium Hydroxide (Milk Of Mag) 30 ml DAILY PRN PO CONSTIPATION; Start at 12:30 Bisacodyl (Dulcolax Supp) 10 mg DAILY PRN [place] CONSTIPATION; Start 06/12/17 at 12 :30 Morphine Sulfate (morphine) 2 mg Q2 PRN IV PAIN LEVEL 4-7 Last administered on 06/13/17 05:15; Admin Dose 2 MG; Start 06/12/17 at 14:30 IV Flush 10 ml 10 ml PRN PRN IV IV PROTOCOL; Start 06/13/17 at 14:00 Meropenem/Sodium Chloride (Merrem 1 Gm/50 ml (Pmx)) 50 ml @ 100 mls/hr Q12 IVPB Last administered on 06/21/17 08:38; Admin Dose 100 MLS/HR; Start at 21:00 Pantoprazole (Protonix Iv) 40 mg BID@06,18 IV Last administered on 06/21/17 05 :21; Admin Dose 40 MG; Start 06/13/17 at 18:00 Ferrous Sulfate (Feosol Liquid Cup) 300 mg DAILY NGT Last administered on 08:34; Admin Dose 300 MG; Start 06/14/17 at 10:00 Mupirocin (Bactroban) 1 applic BID TOP Last administered on 06/21/17 08:35; Admin Dose 1 APPLIC; Start 06/14/17 at 21:00 Valproate Sodium (Depakene Liquid Cup) 500 mg DAILY NGT Last administered on 08:34; Admin Dose 500 MG; Start 06/14/17 at 16:00 Multivitamins (Multivitamin) 30 ml DAILY NGT Last administered on 06/21/17 08: 34; Admin Dose 30 ML; Start 06/15/17 at 09:30 Amiodarone HCl (Cordarone) 200 mg TID PO Last administered on 06/21/17 08:34; Admin Dose 200 MG; Start 06/21/17 at 09:00 ALEXANDRE ULLOA NP Jun 21, 2017 09:33
--- NOTE | 2017-06-21 12:16 | CONS ---
Date/Time of Note Date/Time of Note DATE: 06/21/17 TIME: 12:15 Assessment/Plan Assessment/Plan Chief Complaint/Hosp Course SUBJECTIVE DATA: No acute changes, lethargic, looks comfortable, no fevers INDWELLINGS: Lindsey, NG tube, PICC line. ANTIMICROBIALS: meropenem PHYSICAL EXAMINATION: GENERAL: Chronically ill-appearing, elderly man, in no distress. HEENT: Head is atraumatic and normocephalic. Sclerae are anicteric. Buccal mucosa is dry. NECK: Supple. Trachea is midline. CHEST: Chest rise is symmetrical. Breath sounds with crackles. HEART: S1, S2. ABDOMEN: Soft. Bowel sounds are present. EXTREMITIES: Without cyanosis. ASSESSMENT: 1. S/p sepsis. 2. S/p Healthcare-associated pneumonia with ongoing aspiration secondary to significant secretion retention. 3. S/p Proteus mirabilis urinary tract infection. 4. Methicillin-resistant Staphylococcus aureus nares colonization. 5. Dementia. 6. History of benign prostatic hyperplasia. PLAN: The patient remains unchanged. Continue present care, aspiration precautions, dc abx, GI rec-s DW staff Problems: Consultation Date/Type/Reason Admit Date/Time Jun 12, 2017 at 11:47 Initial Consult Date 06/13/17 Type of Consultation: id Referring Provider: LETI LOPEZ Exam/Review of Systems Vital Signs Vitals Vital Signs Date Time Temp Pulse Resp B/P Pulse Ox O2 Delivery O2 Flow Rate FiO2 06/21/17 11:24 98.4 88 22 132/77 95 06/21/17 08:52 3.0 06/21/17 08:52 Nasal Cannula Intake and Output 06/20/17 06/20/17 06/21/17 15:00 23:00 07:00 Intake Total 300 ml 260 ml Output Total 450 ml 350 ml Balance -150 ml -90 ml Results Result Diagram: 06/21/17 0537 06/21/17 0535 Results 24 hrs Laboratory Tests Test 06/21/17 05:35 06/21/17 05:37 06/21/17 05:48 Sodium Level 143 Potassium Level 4.1 Chloride Level 108 Carbon Dioxide Level 28 Anion Gap 11 Blood Urea Nitrogen 22 H Creatinine 1.00 Glucose Level 86 Calcium Level 8.2 L White Blood Count 6.0 Red Blood Count 3.25 L Hemoglobin 9.9 L Hematocrit 30.4 L Mean Corpuscular Volume 93.5 Mean Corpuscular Hemoglobin 30.5 Mean Corpuscular Hemoglobin Concent 32.6 Red Cell Distribution Width 16.8 H Platelet Count 403 Mean Platelet Volume 12.1 H Neutrophils % 49.9 Lymphocytes % 30.6 Monocytes % 12.4 H Eosinophils % 6.1 Basophils % 0.7 Nucleated Red Blood Cells % 0.0 Neutrophils # 3.0 Lymphocytes # 1.9 Monocytes # 0.8 Eosinophils # 0.4 Basophils # 0.0 Nucleated Red Blood Cells # 0.0 Phosphorus Level 3.1 Magnesium Level 2.1 Medications Medications Current Medications Ascorbic Acid (Vitamin C) 500 mg DAILY PO Last administered on 06/21/17 08:33 ; Admin Dose 500 MG; Start 06/13/17 at 09:00 Atorvastatin Calcium (Lipitor) 20 mg QHS PO Last administered on 06/20/17 21: 58; Admin Dose 20 MG; Start 06/12/17 at 21:00 Finasteride (Proscar) 5 mg DAILY PO Last administered on 06/21/17 08:33; Admin Dose 5 MG; Start 06/13/17 at 09:00 Gabapentin (Neurontin) 300 mg TID PO Last administered on 06/21/17 08:33; Admin Dose 300 MG; Start 06/12/17 at 13:00 Saccharomyces Boulardii (Florastor) 250 mg BID PO Last administered on 08:33; Admin Dose 250 MG; Start 06/12/17 at 21:00 Tamsulosin HCl (Flomax) 0.8 mg HS PO Last administered on 06/20/17 21:58; Admin Dose 0.8 MG; Start 06/12/17 at 21:00 Ondansetron HCl (Zofran Inj) 4 mg Q6H PRN IV NAUSEA AND/OR VOMITING; Start at 12:30 Acetaminophen (Tylenol Tab) 650 mg Q6H PRN PO PAIN LEVEL 1-3 OR FEVER; Start at 12:30 Acetaminophen (Tylenol Supp) 650 mg Q6H PRN [place] PAIN LEVEL 1-3 OR FEVER; Start 06/12/17 at 12:30 Acetaminophen/ Hydrocodone Bitart ([place] (5/325)) 1 tab Q6H PRN PO MODERATE PAIN LEVEL 4-6 Last administered on 06/13/17 08:36; Admin Dose 1 TAB; Start at 12:30 Acetaminophen/ Hydrocodone Bitart ([place] (5/325)) 2 tab Q6H PRN PO SEVERE PAIN LEVEL 7-10; Start 06/12/17 at 12:30 Morphine Sulfate (morphine) 2 mg Q4H PRN IV SEVERE PAIN LEVEL 7-10; Start 06/12 at 12:30 Docusate Sodium (Colace) 100 mg Q12H PRN PO CONSTIPATION; Start 06/12/17 at 12: 30 Magnesium Hydroxide (Milk Of Mag) 30 ml DAILY PRN PO CONSTIPATION; Start at 12:30 Bisacodyl (Dulcolax Supp) 10 mg DAILY PRN [place] CONSTIPATION; Start 06/12/17 at 12 :30 Morphine Sulfate (morphine) 2 mg Q2 PRN IV PAIN LEVEL 4-7 Last administered on 06/13/17 05:15; Admin Dose 2 MG; Start 06/12/17 at 14:30 IV Flush 10 ml 10 ml PRN PRN IV IV PROTOCOL; Start 06/13/17 at 14:00 Meropenem/Sodium Chloride (Merrem 1 Gm/50 ml (Pmx)) 50 ml @ 100 mls/hr Q12 IVPB Last administered on 06/21/17 08:38; Admin Dose 100 MLS/HR; Start at 21:00 Pantoprazole (Protonix Iv) 40 mg BID@06,18 IV Last administered on 06/21/17 05 :21; Admin Dose 40 MG; Start 06/13/17 at 18:00 Ferrous Sulfate (Feosol Liquid Cup) 300 mg DAILY NGT Last administered on 08:34; Admin Dose 300 MG; Start 06/14/17 at 10:00 Mupirocin (Bactroban) 1 applic BID TOP Last administered on 06/21/17 08:35; Admin Dose 1 APPLIC; Start 06/14/17 at 21:00 Valproate Sodium (Depakene Liquid Cup) 500 mg DAILY NGT Last administered on 08:34; Admin Dose 500 MG; Start 06/14/17 at 16:00 Multivitamins (Multivitamin) 30 ml DAILY NGT Last administered on 06/21/17 08: 34; Admin Dose 30 ML; Start 06/15/17 at 09:30 Amiodarone HCl (Cordarone) 200 mg TID PO Last administered on 06/21/17 08:34; Admin Dose 200 MG; Start 06/21/17 at 09:00 MIREYA HAMPTON NP Jun 21, 2017 12:16
--- NOTE | 2017-06-21 15:23 | CONS ---
Date/Time of Note Date/Time of Note DATE: 06/21/17 TIME: 15:21 Consult Date/Type/Reason Admit Date/Time Jun 12, 2017 at 11:47 Initial Consult Date 06/12/17 Type of Consultation: Pulmonary Ordering Provider: LETI LOPEZ Subjective Patient remains stable this morning no new events. No respiratory distress. Still has significant dysphagia. Objective Vital Signs Date Time Temp Pulse Resp B/P Pulse Ox O2 Delivery O2 Flow Rate FiO2 06/21/17 15:06 97.9 89 18 129/87 98 06/21/17 13:38 Nasal Cannula 3.0 Intake and Output 06/20/17 06/20/17 06/21/17 15:00 23:00 07:00 Intake Total 300 ml 260 ml Output Total 450 ml 350 ml Balance -150 ml -90 ml Exam GENERAL: Elderly gentleman appears comfortable at rest VITAL SIGNS: per chart NECK: Supple. No JVD or lymphadenopathy. CARDIAC EXAM: S1, S2. No added sounds or murmurs. CHEST: clear bilaterally, No added sounds, rales or wheezes ABDOMEN: Soft, nontender. No guarding or rebound. EXTREMITIES: No cyanosis, clubbing or edema. NEUROLOGIC: Generalized weakness. Results/Medications Result Diagram: 06/21/17 0537 06/21/17 0535 Results 24 hrs Laboratory Tests Test 06/21/17 05:35 06/21/17 05:37 06/21/17 05:48 Sodium Level 143 Potassium Level 4.1 Chloride Level 108 Carbon Dioxide Level 28 Anion Gap 11 Blood Urea Nitrogen 22 H Creatinine 1.00 Glucose Level 86 Calcium Level 8.2 L White Blood Count 6.0 Red Blood Count 3.25 L Hemoglobin 9.9 L Hematocrit 30.4 L Mean Corpuscular Volume 93.5 Mean Corpuscular Hemoglobin 30.5 Mean Corpuscular Hemoglobin Concent 32.6 Red Cell Distribution Width 16.8 H Platelet Count 403 Mean Platelet Volume 12.1 H Neutrophils % 49.9 Lymphocytes % 30.6 Monocytes % 12.4 H Eosinophils % 6.1 Basophils % 0.7 Nucleated Red Blood Cells % 0.0 Neutrophils # 3.0 Lymphocytes # 1.9 Monocytes # 0.8 Eosinophils # 0.4 Basophils # 0.0 Nucleated Red Blood Cells # 0.0 Phosphorus Level 3.1 Magnesium Level 2.1 Medications Current Medications Ascorbic Acid (Vitamin C) 500 mg DAILY PO Last administered on 06/21/17 08:33 ; Admin Dose 500 MG; Start 06/13/17 at 09:00 Atorvastatin Calcium (Lipitor) 20 mg QHS PO Last administered on 06/20/17 21: 58; Admin Dose 20 MG; Start 06/12/17 at 21:00 Finasteride (Proscar) 5 mg DAILY PO Last administered on 06/21/17 08:33; Admin Dose 5 MG; Start 06/13/17 at 09:00 Gabapentin (Neurontin) 300 mg TID PO Last administered on 06/21/17 13:29; Admin Dose 300 MG; Start 06/12/17 at 13:00 Saccharomyces Boulardii (Florastor) 250 mg BID PO Last administered on 08:33; Admin Dose 250 MG; Start 06/12/17 at 21:00 Tamsulosin HCl (Flomax) 0.8 mg HS PO Last administered on 06/20/17 21:58; Admin Dose 0.8 MG; Start 06/12/17 at 21:00 Ondansetron HCl (Zofran Inj) 4 mg Q6H PRN IV NAUSEA AND/OR VOMITING; Start at 12:30 Acetaminophen (Tylenol Tab) 650 mg Q6H PRN PO PAIN LEVEL 1-3 OR FEVER; Start at 12:30 Acetaminophen (Tylenol Supp) 650 mg Q6H PRN [place] PAIN LEVEL 1-3 OR FEVER; Start 06/12/17 at 12:30 Acetaminophen/ Hydrocodone Bitart ([place] (5/325)) 1 tab Q6H PRN PO MODERATE PAIN LEVEL 4-6 Last administered on 06/13/17 08:36; Admin Dose 1 TAB; Start at 12:30 Acetaminophen/ Hydrocodone Bitart ([place] (5/325)) 2 tab Q6H PRN PO SEVERE PAIN LEVEL 7-10; Start 06/12/17 at 12:30 Morphine Sulfate (morphine) 2 mg Q4H PRN IV SEVERE PAIN LEVEL 7-10; Start 06/12 at 12:30 Docusate Sodium (Colace) 100 mg Q12H PRN PO CONSTIPATION; Start 06/12/17 at 12: 30 Magnesium Hydroxide (Milk Of Mag) 30 ml DAILY PRN PO CONSTIPATION; Start at 12:30 Bisacodyl (Dulcolax Supp) 10 mg DAILY PRN [place] CONSTIPATION; Start 06/12/17 at 12 :30 Morphine Sulfate (morphine) 2 mg Q2 PRN IV PAIN LEVEL 4-7 Last administered on 06/13/17 05:15; Admin Dose 2 MG; Start 06/12/17 at 14:30 IV Flush (NS 10 ml) 10 ml PRN PRN IV IV PROTOCOL; Start 06/13/17 at 14:00 Pantoprazole (Protonix Iv) 40 mg BID@06,18 IV Last administered on 06/21/17 05 :21; Admin Dose 40 MG; Start 06/13/17 at 18:00 Ferrous Sulfate (Feosol Liquid Cup) 300 mg DAILY NGT Last administered on 08:34; Admin Dose 300 MG; Start 06/14/17 at 10:00 Mupirocin (Bactroban) 1 applic BID TOP Last administered on 06/21/17 08:35; Admin Dose 1 APPLIC; Start 06/14/17 at 21:00 Valproate Sodium (Depakene Liquid Cup) 500 mg DAILY NGT Last administered on 08:34; Admin Dose 500 MG; Start 06/14/17 at 16:00 Multivitamins (Multivitamin) 30 ml DAILY NGT Last administered on 06/21/17 08: 34; Admin Dose 30 ML; Start 06/15/17 at 09:30 Amiodarone HCl (Cordarone) 200 mg TID PO Last administered on 06/21/17 13:29; Admin Dose 200 MG; Start 06/21/17 at 09:00 Assessment/Plan Chief Complaint/Hosp Course IMPRESSION: 1. Healthcare associate pneumonia, L infiltrate 2. Possible aspiration component. 3. Hypoxemic respiratory failure. 4. History of dementia. 5. History of atrial fibrillation. 6. Dysphagia with aspiration risk PLAN: 1. Aspiration precautions and PEG tube 2. Monitor H&H 3. DVT and GI prophylaxis We will likely need senior care facility post G-tube placement Problems: LEIGHA DE LEÓN MD, [facility] Jun 21, 2017 15:23
--- NOTE | 2017-06-21 15:32 | CONS ---
Date/Time of Note Date/Time of Note DATE: 06/21/17 TIME: 15:28 Assessment/Plan Assessment/Plan Problems: (1) DEEP (acute kidney injury) Status: Resolved (2) Aspiration pneumonia Status: Chronic Qualifiers: Aspiration pneumonia type: due to regurgitated food Laterality: bilateral Lung location: unspecified part of lung Qualified Code: J69.0 - Aspiration pneumonia of both lungs due to regurgitated food, unspecified part of lung (3) COPD (chronic obstructive pulmonary disease) Status: Chronic Qualifiers: COPD type: COPD with acute exacerbation Qualified Code: J44.1 - Chronic obstructive pulmonary disease with acute exacerbation (4) Sepsis Status: Acute Comment: Pt on AB Rx per ID Qualifiers: Sepsis type: sepsis due to unspecified organism Qualified Code: A41.9 - Sepsis, due to unspecified organism (5) Anemia Comment: Multifactorial Further plans per PMD Consultation Date/Type/Reason Admit Date/Time Jun 12, 2017 at 11:47 Initial Consult Date 06/13/17 Type of Consultation: renal Reason for Consultation pt is non verbal Referring Provider: LETI LOPEZ 24 HR Interval Summary Subjective hx not possible: pt non-verbal Exam/Review of Systems Vital Signs Vitals Vital Signs Date Time Temp Pulse Resp B/P Pulse Ox O2 Delivery O2 Flow Rate FiO2 06/21/17 15:06 97.9 89 18 129/87 98 06/21/17 13:38 Nasal Cannula 3.0 Intake and Output 06/20/17 06/20/17 06/21/17 15:00 23:00 07:00 Intake Total 300 ml 260 ml Output Total 450 ml 350 ml Balance -150 ml -90 ml Exam Pt is confined to bed, not responding to question tho no specific complaints Constitutional: well developed Psych: confusion, nl mood/affect, no complaints Head: atraumatic, normocephalic Eyes: EOMI, PERRL, nl conjunctiva, nl lids, nl sclera ENMT: nl external ears & nose, nl lips & teeth, nl nasal mucosa & septum Neck: non-tender, supple Respiratory: crackles/rales, normal air movement Cardiovascular: nl pulses, regular rate and rhythm Gastrointestinal: nl liver, spleen, non-tender, soft Genitourinary - Male: other (Lindsey Catheter in place) Musculoskeletal: nl extremities to inspection, nl gait and stance Extremities: normal pulses 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, confused, nl mental status, nl speech, nl strength Skin: nl turgor, other (pale), No rash or lesions Lymph: nl lymph nodes Results Renal function has improved significantlyHct 30% Result Diagram: 06/21/17 0537 06/21/17 0535 Results 24 hrs Laboratory Tests Test 06/21/17 05:35 06/21/17 05:37 06/21/17 05:48 Sodium Level 143 Potassium Level 4.1 Chloride Level 108 Carbon Dioxide Level 28 Anion Gap 11 Blood Urea Nitrogen 22 H Creatinine 1.00 Glucose Level 86 Calcium Level 8.2 L White Blood Count 6.0 Red Blood Count 3.25 L Hemoglobin 9.9 L Hematocrit 30.4 L Mean Corpuscular Volume 93.5 Mean Corpuscular Hemoglobin 30.5 Mean Corpuscular Hemoglobin Concent 32.6 Red Cell Distribution Width 16.8 H Platelet Count 403 Mean Platelet Volume 12.1 H Neutrophils % 49.9 Lymphocytes % 30.6 Monocytes % 12.4 H Eosinophils % 6.1 Basophils % 0.7 Nucleated Red Blood Cells % 0.0 Neutrophils # 3.0 Lymphocytes # 1.9 Monocytes # 0.8 Eosinophils # 0.4 Basophils # 0.0 Nucleated Red Blood Cells # 0.0 Phosphorus Level 3.1 Magnesium Level 2.1 Medications Medications Current Medications Ascorbic Acid (Vitamin C) 500 mg DAILY PO Last administered on 06/21/17 08:33 ; Admin Dose 500 MG; Start 06/13/17 at 09:00 Atorvastatin Calcium (Lipitor) 20 mg QHS PO Last administered on 06/20/17 21: 58; Admin Dose 20 MG; Start 06/12/17 at 21:00 Finasteride (Proscar) 5 mg DAILY PO Last administered on 06/21/17 08:33; Admin Dose 5 MG; Start 06/13/17 at 09:00 Gabapentin (Neurontin) 300 mg TID PO Last administered on 06/21/17 13:29; Admin Dose 300 MG; Start 06/12/17 at 13:00 Saccharomyces Boulardii (Florastor) 250 mg BID PO Last administered on 08:33; Admin Dose 250 MG; Start 06/12/17 at 21:00 Tamsulosin HCl (Flomax) 0.8 mg HS PO Last administered on 06/20/17 21:58; Admin Dose 0.8 MG; Start 06/12/17 at 21:00 Ondansetron HCl (Zofran Inj) 4 mg Q6H PRN IV NAUSEA AND/OR VOMITING; Start at 12:30 Acetaminophen (Tylenol Tab) 650 mg Q6H PRN PO PAIN LEVEL 1-3 OR FEVER; Start at 12:30 Acetaminophen (Tylenol Supp) 650 mg Q6H PRN [place] PAIN LEVEL 1-3 OR FEVER; Start 06/12/17 at 12:30 Acetaminophen/ Hydrocodone Bitart ([place] (5/325)) 1 tab Q6H PRN PO MODERATE PAIN LEVEL 4-6 Last administered on 06/13/17 08:36; Admin Dose 1 TAB; Start at 12:30 Acetaminophen/ Hydrocodone Bitart ([place] (5/325)) 2 tab Q6H PRN PO SEVERE PAIN LEVEL 7-10; Start 06/12/17 at 12:30 Morphine Sulfate (morphine) 2 mg Q4H PRN IV SEVERE PAIN LEVEL 7-10; Start 06/12 at 12:30 Docusate Sodium (Colace) 100 mg Q12H PRN PO CONSTIPATION; Start 06/12/17 at 12: 30 Magnesium Hydroxide (Milk Of Mag) 30 ml DAILY PRN PO CONSTIPATION; Start at 12:30 Bisacodyl (Dulcolax Supp) 10 mg DAILY PRN [place] CONSTIPATION; Start 06/12/17 at 12 :30 Morphine Sulfate (morphine) 2 mg Q2 PRN IV PAIN LEVEL 4-7 Last administered on 06/13/17 05:15; Admin Dose 2 MG; Start 06/12/17 at 14:30 IV Flush (NS 10 ml) 10 ml PRN PRN IV IV PROTOCOL; Start 06/13/17 at 14:00 Pantoprazole (Protonix Iv) 40 mg BID@06,18 IV Last administered on 06/21/17 05 :21; Admin Dose 40 MG; Start 06/13/17 at 18:00 Ferrous Sulfate (Feosol Liquid Cup) 300 mg DAILY NGT Last administered on 08:34; Admin Dose 300 MG; Start 06/14/17 at 10:00 Mupirocin (Bactroban) 1 applic BID TOP Last administered on 06/21/17 08:35; Admin Dose 1 APPLIC; Start 06/14/17 at 21:00 Valproate Sodium (Depakene Liquid Cup) 500 mg DAILY NGT Last administered on 08:34; Admin Dose 500 MG; Start 06/14/17 at 16:00 Multivitamins (Multivitamin) 30 ml DAILY NGT Last administered on 06/21/17 08: 34; Admin Dose 30 ML; Start 06/15/17 at 09:30 Amiodarone HCl (Cordarone) 200 mg TID PO Last administered on 06/21/17 13:29; Admin Dose 200 MG; Start 06/21/17 at 09:00 EULALIA SANFORD MD Jun 21, 2017 15:32
[2017-06-21] MEDS ORDERED: CEFAZOLIN 2 GM/50 ML (PMX) 50 ML IVPB ONE (18:53)
[2017-06-21] MEDS ORDERED: PROPOFOL 20 ML ONE (18:53)
--- NOTE | 2017-06-21 18:57 | OPPN ---
Date/Time of Note Date/Time of Note DATE: 06/21/17 TIME: 18:53 Proc Note GI Procedure Date 06/21/17 Pre-procedure Diagnosis * High aspiration risk/failure to thrive Post-procedure Diagnosis Impression: * Distal esophagitis * Uneventful PEG * Placement of [place] 20 gastrostomy tube * Otherwise normal EGD Plan: * Start feedings tomorrow morning * PPI therapy Procedure Performed: Other (EGD with PEG) Surgeon DEN PITTMAN MD Hoop Puncher none Anesthesia Type: MAC Anesthesiologist: FANG CAO MD Tourniquet Time none EBL none Transfusion required none Biopsy 1: None Grafts/Implants [place] 20 gastrostomy tube Tubes/Drains none Complication(s) none Pt Condition post procedure: stable Disposition: PACU Indications: other (Aspiration risk) Procedure Description After informed consent, with the patient/relatives understanding the procedure, its indications, potential risks and complications, including but not limited to : Allergic reaction, bleeding, perforation or infection, and all after all pertinent questions were answered to the patient's satisfaction, patient/ relative signed witnessed informed consent. Following this, premedication was administered slowly IV push under care of cardiovascular respiratory monitoring with pulse oximetry, and automatic blood pressure, and cook starch. Once to sedative effect was achieved the patient was placed in the left lateral decubitus, the panendoscope was introduced and advanced under visual control. Careful examination of the upper gastrointestinal tract, both on insertion as well as withdrawal of the instrument disclosed following findings: ESOPHAGUS: The mucosa of the entire esophagus was carefully examined and showed the following findings: There is moderate erythema and edema of the mucosa of the distal esophagus. Otherwise the mucosa appears within normal limits. There is no evidence of varices, neoplasm or stricture. Small hiatal hernia identified.] Stomach: Upon entrance to the stomach air was insufflated, the gastric capellan distended normally. The mucosa of the fundus, body and antrum of the stomach was carefully examined both head-on and on retroflexion, and showed the following findings: [The mucosa appears within normal limits with no abnormalities. There is no evidence of gastritis, ulcers or neoplasm.] Pylorus: The pylorus was carefully examined and showed the following findings: [The pylorus appears patent and within normal limits, with no evidence of gastric outlet obstruction.] Duodenum: The duodenal mucosa was carefully examined in the duodenal bulb as well as the second portion of the duodenum and showed the following findings: [The mucosa appears unremarkable with no evidence of duodenitis, ulcer or neoplasm.] The instrument was then brought back to the stomach and the anterior wall mid- body was identified by transillumination and "finger indentation", this area was then marked in the anterior wall of the abdomen, it was cleansed with Betadine and infiltrated with Xylocaine 1%. Following this a trocar needle was introduced into the gastric lumen under visual control with the endoscope, once in the gastric lumen a guide wire was advanced and secured with a polypectomy snare, at this point the endoscope was withdrawn bringing the guidewire out through the patient's mouth. Following this a [place] #20 gastrostomy tube was introduced over the guidewire, with the [place] technique without difficulty , a small incision was performed in the skin to allow easy passage of the G-tube , once the position of the gastrostomy was confirmed, the external stopper and connectors were installed, and a clean dressing applied. The patient tolerated the procedure well and was transferred out of the endoscopy suite awake, and in good condition to continue recovery under observation, feedings will start in the next 12-24 hours and the discharge in the care will be instituted. Copies To: CC: DEN PITTMAN MD, MORDO MD Jun 21, 2017 18:57
[2017-06-21] MEDS: TAMSULOSIN (SR) 0.4 MG CAP PO SCH (20:24)
[2017-06-21] MEDS: ATORVASTATIN 20 MG TAB PO SCH (20:25)
[2017-06-22] VITALS (13 sets, daily range): BP systolic 118–156; BP diastolic 57–74; PULSE 43–95; RESP 16–20
[2017-06-22] MEDS: ALBUTEROL/IPRATROPIUM (NEB) 3 ML AMP NEB SCH ×6 (00:25→20:01)
[2017-06-22] MEDS: PANTOPRAZOLE 40 MG INJ IV SCH ×2 (05:20→17:14)
[2017-06-22 07:21] LABS: BASOPHILS % 0.5 % (0.0-2.0); EOSINOPHILS # 0.3 10^3/ul (0.0-0.5); EOSINOPHILS % 4.3 % (0.0-7.0); HEMATOCRIT 30.1 % (42.0-52.0); HEMOGLOBIN 9.3 g/dl (14.0-18.0); LYMPHOCYTES # 1.5 10^3/ul (0.8-2.9); LYMPHOCYTES % 22.9 % (15.0-51.0); MEAN CORPUSCULAR HEMOGLOBIN 29.1 pg (29.0-33.0); MEAN CORPUSCULAR HGB CONC 30.9 g/dl (32.0-37.0); MEAN CORPUSCULAR VOLUME 94.1 fl (82.0-101.0); MEAN PLATELET VOLUME 12.3 fl (7.4-10.4); MONOCYTE # 0.8 10^3/ul (0.3-0.9); MONOCYTES % 12.3 % (0.0-11.0); NEUTROPHIL # 3.9 10^3/ul (1.6-7.5); NEUTROPHILS % 59.5 % (39.0-77.0); PLATELET COUNT 366 10^3/UL (140-415); RED CELL DISTRIBUTION WIDTH 16.1 % (11.5-14.5); WHITE BLOOD COUNT 6.6 10^3/ul (4.8-10.8)
[2017-06-22 07:37] LABS: CALCIUM 8.4 mg/dl (8.4-10.2); CREATININE 0.96 mg/dl (0.61-1.24); POTASSIUM 3.5 mmol/L (3.5-5.1)
[2017-06-22 07:47] LABS: MAGNESIUM 1.9 mg/dl (1.7-2.5)
[2017-06-22] MEDS: MUPIROCIN 2% 22 GM OINT TOP SCH ×2 (09:00→20:59)
[2017-06-22] MEDS: MULTIVITAMINS 30 ML CUP NGT SCH (09:01)
[2017-06-22] MEDS: FERROUS SULFATE 60 MG/ML 5ML CUP NGT SCH (09:01)
[2017-06-22] MEDS: VALPROIC ACID LIQUID CUP 250 MG/5 ML CUP NGT SCH (09:01)
[2017-06-22] MEDS: SACCHAROMYCES BOULARDII 250 MG CAP PO SCH ×2 (09:01→20:57)
[2017-06-22] MEDS: FINASTERIDE 5 MG TAB PO SCH (09:02)
[2017-06-22] MEDS: GABAPENTIN 300 MG CAP PO SCH ×3 (09:02→20:57)
[2017-06-22] MEDS: ASCORBIC ACID 500 MG TAB PO SCH (09:02)
[2017-06-22] MEDS: AMIODARONE 200 MG TAB PO SCH ×3 (09:02→20:58)
--- NOTE | 2017-06-22 11:31 | PN ---
Date/Time of Note Date/Time of Note DATE: 06/22/17 TIME: 11:29 Assessment/Plan VTE Prophylaxis VTE Prophylaxis Intervention: SCD's Lines/Catheters IV Catheter Type (from Nrs): PICC Line Central line still needed: Yes Urinary Cath still in place: Yes Reason Cath still needed: other (indicate) (Incontinent) Assessment/Plan Chief Complaint/Hosp Course Assessment: Failure to thrive/high risk for aspiration Post uneventful PEG Severe anemia No overt GI bleeding Distal erosive esophagitis on EGD Sepsis/pneumonia Acute renal failure/improved Organic brain syndrome Plan: Continue present regimen We will sign off and follow as needed upon request Subjective: Course reviewed with nursing staff Patient interviewed and examined All labs, imaging and other results reviewed The patient tolerating feedings without difficulty Remains confused and belligerent at times We will sign off and follow up on request Exam: General: Well developed, well nourished Skin: No lesions, no stigmata chronic liver disease, no evidence of bleeding diathesis Lymphatic: No palpable lymphadenopathy HEENT: No lesions Cardiovascular: Heart: Regular rate and rhythm, no murmurs, gallops or rubs. Peripheral pulses present within normal limits, no cyanosis, clubbing or edemas. No pulsatile abdominal mass Respiratory: Crackles bilaterally. Otherwise lungs clear to auscultation and percussion, no wheezing, no rubs Gastrointestinal and Liver: Abdomen: G-tube in place. Abdomen soft, non tender , non-distended, no hernias, no masses, no organomegaly, no ascites, no guarding , no rebound tenderness, normoactive bowel sounds. Extremities: No cyanosis, clubbing, or edema. Diagnostic Studies: Available data and images were reviewed personally. See reports. Significant results and findings are addressed here or in the assessment and plan. Problems: Exam/Review of Systems Vital Signs Vitals Vital Signs Date Time Temp Pulse Resp B/P Pulse Ox O2 Delivery O2 Flow Rate FiO2 06/22/17 08:13 70 18 96 Nasal Cannula 3.0 06/22/17 07:58 97.9 125/57 Intake and Output 06/21/17 06/21/17 06/22/17 15:00 23:00 07:00 Intake Total 150 ml Output Total 450 ml 700 ml Balance -300 ml -700 ml Results Result Diagram: 06/22/17 0654 06/22/17 0649 Results 24 hrs Laboratory Tests Test 06/22/17 06:37 06/22/17 06:49 06/22/17 06:54 Phosphorus Level 3.0 Magnesium Level 1.9 Sodium Level 141 Potassium Level 3.5 Chloride Level 106 Carbon Dioxide Level 28 Anion Gap 11 Blood Urea Nitrogen 20 Creatinine 0.96 Glucose Level 85 Calcium Level 8.4 White Blood Count 6.6 Red Blood Count 3.20 L Hemoglobin 9.3 L Hematocrit 30.1 L Mean Corpuscular Volume 94.1 Mean Corpuscular Hemoglobin 29.1 Mean Corpuscular Hemoglobin Concent 30.9 L Red Cell Distribution Width 16.1 H Platelet Count 366 Mean Platelet Volume 12.3 H Neutrophils % 59.5 Lymphocytes % 22.9 Monocytes % 12.3 H Eosinophils % 4.3 Basophils % 0.5 Nucleated Red Blood Cells % 0.0 Neutrophils # 3.9 Lymphocytes # 1.5 Monocytes # 0.8 Eosinophils # 0.3 Basophils # 0.0 Nucleated Red Blood Cells # 0.0 Medications Medications Current Medications Ascorbic Acid (Vitamin C) 500 mg DAILY PO Last administered on 06/22/17 09:02 ; Admin Dose 500 MG; Start 06/13/17 at 09:00 Atorvastatin Calcium (Lipitor) 20 mg QHS PO Last administered on 06/21/17 20: 25; Admin Dose 20 MG; Start 06/12/17 at 21:00 Finasteride (Proscar) 5 mg DAILY PO Last administered on 06/22/17 09:02; Admin Dose 5 MG; Start 06/13/17 at 09:00 Gabapentin (Neurontin) 300 mg TID PO Last administered on 06/22/17 09:02; Admin Dose 300 MG; Start 06/12/17 at 13:00 Saccharomyces Boulardii (Florastor) 250 mg BID PO Last administered on 09:01; Admin Dose 250 MG; Start 06/12/17 at 21:00 Tamsulosin HCl (Flomax) 0.8 mg HS PO Last administered on 06/21/17 20:24; Admin Dose 0.8 MG; Start 06/12/17 at 21:00 Ondansetron HCl (Zofran Inj) 4 mg Q6H PRN IV NAUSEA AND/OR VOMITING; Start at 12:30 Acetaminophen (Tylenol Tab) 650 mg Q6H PRN PO PAIN LEVEL 1-3 OR FEVER; Start at 12:30 Acetaminophen (Tylenol Supp) 650 mg Q6H PRN [place] PAIN LEVEL 1-3 OR FEVER; Start 06/12/17 at 12:30 Acetaminophen/ Hydrocodone Bitart ([place] (5/325)) 1 tab Q6H PRN PO MODERATE PAIN LEVEL 4-6 Last administered on 06/13/17 08:36; Admin Dose 1 TAB; Start at 12:30 Acetaminophen/ Hydrocodone Bitart ([place] (5/325)) 2 tab Q6H PRN PO SEVERE PAIN LEVEL 7-10; Start 06/12/17 at 12:30 Morphine Sulfate (morphine) 2 mg Q4H PRN IV SEVERE PAIN LEVEL 7-10; Start 06/12 at 12:30 Docusate Sodium (Colace) 100 mg Q12H PRN PO CONSTIPATION; Start 06/12/17 at 12: 30 Magnesium Hydroxide (Milk Of Mag) 30 ml DAILY PRN PO CONSTIPATION; Start at 12:30 Bisacodyl (Dulcolax Supp) 10 mg DAILY PRN [place] CONSTIPATION; Start 06/12/17 at 12 :30 Morphine Sulfate (morphine) 2 mg Q2 PRN IV PAIN LEVEL 4-7 Last administered on 06/13/17 05:15; Admin Dose 2 MG; Start 06/12/17 at 14:30 IV Flush (NS 10 ml) 10 ml PRN PRN IV IV PROTOCOL; Start 06/13/17 at 14:00 Pantoprazole (Protonix Iv) 40 mg BID@06,18 IV Last administered on 06/22/17 05 :20; Admin Dose 40 MG; Start 06/13/17 at 18:00 Ferrous Sulfate (Feosol Liquid Cup) 300 mg DAILY NGT Last administered on 09:01; Admin Dose 300 MG; Start 06/14/17 at 10:00 Mupirocin (Bactroban) 1 applic BID TOP Last administered on 06/21/17 20:26; Admin Dose 1 APPLIC; Start 06/14/17 at 21:00 Valproate Sodium (Depakene Liquid Cup) 500 mg DAILY NGT Last administered on 09:01; Admin Dose 500 MG; Start 06/14/17 at 16:00 Multivitamins (Multivitamin) 30 ml DAILY NGT Last administered on 06/22/17 09: 01; Admin Dose 30 ML; Start 06/15/17 at 09:30 Amiodarone HCl (Cordarone) 200 mg TID PO Last administered on 06/22/17 09:02; Admin Dose 200 MG; Start 06/21/17 at 09:00 DEN PITTMAN MD Jun 22, 2017 11:31
--- NOTE | 2017-06-22 14:02 | PN ---
Date/Time of Note Date/Time of Note DATE: 06/22/17 TIME: 13:58 Assessment/Plan VTE Prophylaxis VTE Prophylaxis Intervention: SCD's Lines/Catheters IV C[facility]ter Type (from [facility]): PICC Line Central line still needed: Yes Urinary Cath still in place: Yes Reason Cath still needed: other (indicate) Assessment/Plan Chief Complaint/Hosp Course 1. Status post sepsis with underlying septic shock secondary to aspiration pneumonia and urinary tract infection. S/P antibiotics as per infectious diseases. 2. Acute respiratory failure. Hypoxic. Status post intubation and extubation. Continue inhaled bronchodilators. 3. Dysphagia. Continue aspiration precautions. Speech therapy evaluation failed. S/P PEG placement on 06/21/2017. 4. Normocytic, normochromic anemia requiring blood transfusions most probably secondary to underlying gastric ulcer and antral gastritis. Continue PPI. 5. 3 active gastric ulcerations and severe antral gastritis. Continue PPI. Pathology from biopsy negative for any H. pylori. 6. Atrial fibrillation with RVR. Status post evaluation by cardiology. On amiodarone. 7. Benign prostatic hypertrophy. Status post Lindsey catheter insertion by urology. Continue finasteride and tamsulosin. 8. Dementia. Continue supportive care. 9. Acute nonoliguric kidney injury. Most probably secondary to hemodynamics. Currently resolved. Status post evaluation by nephrology. 10. Seizure disorder. Continue anticonvulsants. 11. Fluids, electrolytes, and nutrition. G-tube feeds. 12. DVT prophylaxis. B/L SCDs. 13. Gastrointestinal prophylaxis. Proton pump inhibitors. 14. Plan. Continue PPI. Patient needs placement. Case discussed with Dr. Caruso. Problems: Subjective 24 Hr Interval Summary Free Text/Dictation Started on G-tube feeds. Exam/Review of Systems Vital Signs Vitals Vital Signs Date Time Temp Pulse Resp B/P Pulse Ox O2 Delivery O2 Flow Rate FiO2 06/22/17 12:14 70 06/22/17 12:10 20 98 Nasal Cannula 3.0 06/22/17 11:48 98.3 124/68 Intake and Output 06/21/17 06/21/17 06/22/17 15:00 23:00 07:00 Intake Total 150 ml Output Total 450 ml 700 ml Balance -300 ml -700 ml Exam General: Adequately build 72 year-old male lying in bed in no apparent distress. HEENT: Normocephalic, atraumatic. Eyes: Anicteric sclerae, conjunctivae clear. ENT: Nasal septum midline, oral mucosa is dry. Poor dentition. Neck supple, JVD noticed. Respiratory: Bilaterally diminished breath sounds. Use of accessory muscles of respiration. B/L coarse rales. Cardiovascular: S1, S2 heard. Abdomen: Soft, nontender, and nondistended. Bowel sounds positive in all 4 quadrants. G-tube. Genitourinary: Deferred. Extremities: No cyanosis, no clubbing, no edema. Peripheral pulses palpable. Neurologic: The patient is awake and alert. Results Result Diagram: 06/22/17 0654 06/22/17 0649 Results 24 hrs Laboratory Tests Test 06/22/17 06:37 06/22/17 06:49 06/22/17 06:54 Phosphorus Level 3.0 Magnesium Level 1.9 Sodium Level 141 Potassium Level 3.5 Chloride Level 106 Carbon Dioxide Level 28 Anion Gap 11 Blood Urea Nitrogen 20 Creatinine 0.96 Glucose Level 85 Calcium Level 8.4 White Blood Count 6.6 Red Blood Count 3.20 L Hemoglobin 9.3 L Hematocrit 30.1 L Mean Corpuscular Volume 94.1 Mean Corpuscular Hemoglobin 29.1 Mean Corpuscular Hemoglobin Concent 30.9 L Red Cell Distribution Width 16.1 H Platelet Count 366 Mean Platelet Volume 12.3 H Neutrophils % 59.5 Lymphocytes % 22.9 Monocytes % 12.3 H Eosinophils % 4.3 Basophils % 0.5 Nucleated Red Blood Cells % 0.0 Neutrophils # 3.9 Lymphocytes # 1.5 Monocytes # 0.8 Eosinophils # 0.3 Basophils # 0.0 Nucleated Red Blood Cells # 0.0 Medications Medications Current Medications Ascorbic Acid (Vitamin C) 500 mg DAILY PO Last administered on 06/22/17 09:02 ; Admin Dose 500 MG; Start 06/13/17 at 09:00 Atorvastatin Calcium (Lipitor) 20 mg QHS PO Last administered on 06/21/17 20: 25; Admin Dose 20 MG; Start 06/12/17 at 21:00 Finasteride (Proscar) 5 mg DAILY PO Last administered on 06/22/17 09:02; Admin Dose 5 MG; Start 06/13/17 at 09:00 Gabapentin (Neurontin) 300 mg TID PO Last administered on 06/22/17 13:54; Admin Dose 300 MG; Start 06/12/17 at 13:00 Saccharomyces Boulardii (Florastor) 250 mg BID PO Last administered on 09:01; Admin Dose 250 MG; Start 06/12/17 at 21:00 Tamsulosin HCl (Flomax) 0.8 mg HS PO Last administered on 06/21/17 20:24; Admin Dose 0.8 MG; Start 06/12/17 at 21:00 Ondansetron HCl (Zofran Inj) 4 mg Q6H PRN IV NAUSEA AND/OR VOMITING; Start at 12:30 Acetaminophen (Tylenol Tab) 650 mg Q6H PRN PO PAIN LEVEL 1-3 OR FEVER; Start at 12:30 Acetaminophen (Tylenol Supp) 650 mg Q6H PRN [place] PAIN LEVEL 1-3 OR FEVER; Start 06/12/17 at 12:30 Acetaminophen/ Hydrocodone Bitart ([place] (5/325)) 1 tab Q6H PRN PO MODERATE PAIN LEVEL 4-6 Last administered on 06/13/17 08:36; Admin Dose 1 TAB; Start at 12:30 Acetaminophen/ Hydrocodone Bitart ([place] (5/325)) 2 tab Q6H PRN PO SEVERE PAIN LEVEL 7-10; Start 06/12/17 at 12:30 Morphine Sulfate (morphine) 2 mg Q4H PRN IV SEVERE PAIN LEVEL 7-10; Start 06/12 at 12:30 Docusate Sodium (Colace) 100 mg Q12H PRN PO CONSTIPATION; Start 06/12/17 at 12: 30 Magnesium Hydroxide (Milk Of Mag) 30 ml DAILY PRN PO CONSTIPATION; Start at 12:30 Bisacodyl (Dulcolax Supp) 10 mg DAILY PRN [place] CONSTIPATION; Start 06/12/17 at 12 :30 Morphine Sulfate (morphine) 2 mg Q2 PRN IV PAIN LEVEL 4-7 Last administered on 06/13/17 05:15; Admin Dose 2 MG; Start 06/12/17 at 14:30 IV Flush (NS 10 ml) 10 ml PRN PRN IV IV PROTOCOL; Start 06/13/17 at 14:00 Pantoprazole (Protonix Iv) 40 mg BID@06,18 IV Last administered on 06/22/17 05 :20; Admin Dose 40 MG; Start 06/13/17 at 18:00 Ferrous Sulfate (Feosol Liquid Cup) 300 mg DAILY NGT Last administered on 09:01; Admin Dose 300 MG; Start 06/14/17 at 10:00 Mupirocin (Bactroban) 1 applic BID TOP Last administered on 06/22/17 09:00; Admin Dose 1 APPLIC; Start 06/14/17 at 21:00 Valproate Sodium (Depakene Liquid Cup) 500 mg DAILY NGT Last administered on 09:01; Admin Dose 500 MG; Start 06/14/17 at 16:00 Multivitamins (Multivitamin) 30 ml DAILY NGT Last administered on 06/22/17 09: 01; Admin Dose 30 ML; Start 06/15/17 at 09:30 Amiodarone HCl (Cordarone) 200 mg TID PO Last administered on 06/22/17 13:55; Admin Dose 200 MG; Start 06/21/17 at 09:00 ALEXANDRE ULLOA NP Jun 22, 2017 14:02
--- NOTE | 2017-06-22 14:48 | CONS ---
Date/Time of Note Date/Time of Note DATE: 06/22/17 TIME: 14:47 Assessment/Plan Assessment/Plan Additional Assessment/Plan 72 yo male with 1) Severe Sepsis-Resolved 2) Pna, Possible aspiration 3) Resp Failure, vent- Resolved 4) DEEP in the setting of above, Urinary retention. Resolved 5) Likely BPH 6) Severe Anemia S/p PRBC, stable. DEEP Resolved Renal function stable. Will sign of case, re consult as needed. Consultation Date/Type/Reason Admit Date/Time Jun 12, 2017 at 11:47 Initial Consult Date 06/12/17 Type of Consultation: renal Referring Provider: LETI LOPEZ Exam/Review of Systems Vital Signs Vitals Vital Signs Date Time Temp Pulse Resp B/P Pulse Ox O2 Delivery O2 Flow Rate FiO2 06/22/17 12:14 70 06/22/17 12:10 20 98 Nasal Cannula 3.0 06/22/17 11:48 98.3 124/68 Intake and Output 06/21/17 06/21/17 06/22/17 15:00 23:00 07:00 Intake Total 150 ml Output Total 450 ml 700 ml Balance -300 ml -700 ml Exam Constitutional: No distress ENMT: mucosa pink and moist Neck: No jvd Respiratory: No diminished breath sounds, No labored breathing Cardiovascular: No edema Gastrointestinal: soft Results Result Diagram: 06/22/17 0654 06/22/17 0649 Results 24 hrs Laboratory Tests Test 06/22/17 06:37 06/22/17 06:49 06/22/17 06:54 Phosphorus Level 3.0 Magnesium Level 1.9 Sodium Level 141 Potassium Level 3.5 Chloride Level 106 Carbon Dioxide Level 28 Anion Gap 11 Blood Urea Nitrogen 20 Creatinine 0.96 Glucose Level 85 Calcium Level 8.4 White Blood Count 6.6 Red Blood Count 3.20 L Hemoglobin 9.3 L Hematocrit 30.1 L Mean Corpuscular Volume 94.1 Mean Corpuscular Hemoglobin 29.1 Mean Corpuscular Hemoglobin Concent 30.9 L Red Cell Distribution Width 16.1 H Platelet Count 366 Mean Platelet Volume 12.3 H Neutrophils % 59.5 Lymphocytes % 22.9 Monocytes % 12.3 H Eosinophils % 4.3 Basophils % 0.5 Nucleated Red Blood Cells % 0.0 Neutrophils # 3.9 Lymphocytes # 1.5 Monocytes # 0.8 Eosinophils # 0.3 Basophils # 0.0 Nucleated Red Blood Cells # 0.0 Medications Medications Current Medications Ascorbic Acid (Vitamin C) 500 mg DAILY PO Last administered on 06/22/17 09:02 ; Admin Dose 500 MG; Start 06/13/17 at 09:00 Atorvastatin Calcium (Lipitor) 20 mg QHS PO Last administered on 06/21/17 20: 25; Admin Dose 20 MG; Start 06/12/17 at 21:00 Finasteride (Proscar) 5 mg DAILY PO Last administered on 06/22/17 09:02; Admin Dose 5 MG; Start 06/13/17 at 09:00 Gabapentin (Neurontin) 300 mg TID PO Last administered on 06/22/17 13:54; Admin Dose 300 MG; Start 06/12/17 at 13:00 Saccharomyces Boulardii (Florastor) 250 mg BID PO Last administered on 09:01; Admin Dose 250 MG; Start 06/12/17 at 21:00 Tamsulosin HCl (Flomax) 0.8 mg HS PO Last administered on 06/21/17 20:24; Admin Dose 0.8 MG; Start 06/12/17 at 21:00 Ondansetron HCl (Zofran Inj) 4 mg Q6H PRN IV NAUSEA AND/OR VOMITING; Start at 12:30 Acetaminophen (Tylenol Tab) 650 mg Q6H PRN PO PAIN LEVEL 1-3 OR FEVER; Start at 12:30 Acetaminophen (Tylenol Supp) 650 mg Q6H PRN [place] PAIN LEVEL 1-3 OR FEVER; Start 06/12/17 at 12:30 Acetaminophen/ Hydrocodone Bitart ([place] (5/325)) 1 tab Q6H PRN PO MODERATE PAIN LEVEL 4-6 Last administered on 06/13/17 08:36; Admin Dose 1 TAB; Start at 12:30 Acetaminophen/ Hydrocodone Bitart ([place] (5/325)) 2 tab Q6H PRN PO SEVERE PAIN LEVEL 7-10; Start 06/12/17 at 12:30 Morphine Sulfate (morphine) 2 mg Q4H PRN IV SEVERE PAIN LEVEL 7-10; Start 06/12 at 12:30 Docusate Sodium (Colace) 100 mg Q12H PRN PO CONSTIPATION; Start 06/12/17 at 12: 30 Magnesium Hydroxide (Milk Of Mag) 30 ml DAILY PRN PO CONSTIPATION; Start at 12:30 Bisacodyl (Dulcolax Supp) 10 mg DAILY PRN [place] CONSTIPATION; Start 06/12/17 at 12 :30 Morphine Sulfate (morphine) 2 mg Q2 PRN IV PAIN LEVEL 4-7 Last administered on 06/13/17 05:15; Admin Dose 2 MG; Start 06/12/17 at 14:30 IV Flush (NS 10 ml) 10 ml PRN PRN IV IV PROTOCOL; Start 06/13/17 at 14:00 Pantoprazole (Protonix Iv) 40 mg BID@,18 IV Last administered on 06/22/17 05 :20; Admin Dose 40 MG; Start 06/13/17 at 18:00 Ferrous Sulfate (Feosol Liquid Cup) 300 mg DAILY NGT Last administered on 09:01; Admin Dose 300 MG; Start 06/14/17 at 10:00 Mupirocin (Bactroban) 1 applic BID TOP Last administered on 06/22/17 09:00; Admin Dose 1 APPLIC; Start 06/14/17 at 21:00 Valproate Sodium (Depakene Liquid Cup) 500 mg DAILY NGT Last administered on 09:01; Admin Dose 500 MG; Start 06/14/17 at 16:00 Multivitamins (Multivitamin) 30 ml DAILY NGT Last administered on 06/22/17 09: 01; Admin Dose 30 ML; Start 06/15/17 at 09:30 Amiodarone HCl (Cordarone) 200 mg TID PO Last administered on 06/22/17 13:55; Admin Dose 200 MG; Start 06/21/17 at 09:00 ELVA VIDAL MD Jun 22, 2017 14:48
--- NOTE | 2017-06-22 15:00 | CONS ---
Date/Time of Note Date/Time of Note DATE: 06/22/17 TIME: 14:58 Consult Date/Type/Reason Admit Date/Time Jun 12, 2017 at 11:47 Initial Consult Date 06/13/17 Type of Consultation: Pulm Ordering Provider: LETI LOPEZ Subjective s/p PEG Objective Vital Signs Date Time Temp Pulse Resp B/P Pulse Ox O2 Delivery O2 Flow Rate FiO2 06/22/17 12:14 70 06/22/17 12:10 20 98 Nasal Cannula 3.0 06/22/17 11:48 98.3 124/68 Intake and Output 06/21/17 06/21/17 06/22/17 15:00 23:00 07:00 Intake Total 150 ml Output Total 450 ml 700 ml Balance -300 ml -700 ml Exam HEENT: Neck supple; no JVD; no LAD CVS: RRR, S1 and S2 CHEST: Clear ABD: Soft, NT, + BS EXT: No c/c/e Results/Medications Result Diagram: 06/22/17 0654 06/22/17 0649 Results 24 hrs Laboratory Tests Test 06/22/17 06:37 06/22/17 06:49 06/22/17 06:54 Phosphorus Level 3.0 Magnesium Level 1.9 Sodium Level 141 Potassium Level 3.5 Chloride Level 106 Carbon Dioxide Level 28 Anion Gap 11 Blood Urea Nitrogen 20 Creatinine 0.96 Glucose Level 85 Calcium Level 8.4 White Blood Count 6.6 Red Blood Count 3.20 L Hemoglobin 9.3 L Hematocrit 30.1 L Mean Corpuscular Volume 94.1 Mean Corpuscular Hemoglobin 29.1 Mean Corpuscular Hemoglobin Concent 30.9 L Red Cell Distribution Width 16.1 H Platelet Count 366 Mean Platelet Volume 12.3 H Neutrophils % 59.5 Lymphocytes % 22.9 Monocytes % 12.3 H Eosinophils % 4.3 Basophils % 0.5 Nucleated Red Blood Cells % 0.0 Neutrophils # 3.9 Lymphocytes # 1.5 Monocytes # 0.8 Eosinophils # 0.3 Basophils # 0.0 Nucleated Red Blood Cells # 0.0 Medications Current Medications Ascorbic Acid (Vitamin C) 500 mg DAILY PO Last administered on 06/22/17 09:02 ; Admin Dose 500 MG; Start 06/13/17 at 09:00 Atorvastatin Calcium (Lipitor) 20 mg QHS PO Last administered on 06/21/17 20: 25; Admin Dose 20 MG; Start 06/12/17 at 21:00 Finasteride (Proscar) 5 mg DAILY PO Last administered on 06/22/17 09:02; Admin Dose 5 MG; Start 06/13/17 at 09:00 Gabapentin (Neurontin) 300 mg TID PO Last administered on 06/22/17 13:54; Admin Dose 300 MG; Start 06/12/17 at 13:00 Saccharomyces Boulardii (Florastor) 250 mg BID PO Last administered on 09:01; Admin Dose 250 MG; Start 06/12/17 at 21:00 Tamsulosin HCl (Flomax) 0.8 mg HS PO Last administered on 06/21/17 20:24; Admin Dose 0.8 MG; Start 06/12/17 at 21:00 Ondansetron HCl (Zofran Inj) 4 mg Q6H PRN IV NAUSEA AND/OR VOMITING; Start at 12:30 Acetaminophen (Tylenol Tab) 650 mg Q6H PRN PO PAIN LEVEL 1-3 OR FEVER; Start at 12:30 Acetaminophen (Tylenol Supp) 650 mg Q6H PRN [place] PAIN LEVEL 1-3 OR FEVER; Start 06/12/17 at 12:30 Acetaminophen/ Hydrocodone Bitart ([place] (5/325)) 1 tab Q6H PRN PO MODERATE PAIN LEVEL 4-6 Last administered on 06/13/17 08:36; Admin Dose 1 TAB; Start at 12:30 Acetaminophen/ Hydrocodone Bitart ([place] (5/325)) 2 tab Q6H PRN PO SEVERE PAIN LEVEL 7-10; Start 06/12/17 at 12:30 Morphine Sulfate (morphine) 2 mg Q4H PRN IV SEVERE PAIN LEVEL 7-10; Start 06/12 at 12:30 Docusate Sodium (Colace) 100 mg Q12H PRN PO CONSTIPATION; Start 06/12/17 at 12: 30 Magnesium Hydroxide (Milk Of Mag) 30 ml DAILY PRN PO CONSTIPATION; Start at 12:30 Bisacodyl (Dulcolax Supp) 10 mg DAILY PRN [place] CONSTIPATION; Start 06/12/17 at 12 :30 Morphine Sulfate (morphine) 2 mg Q2 PRN IV PAIN LEVEL 4-7 Last administered on 06/13/17 05:15; Admin Dose 2 MG; Start 06/12/17 at 14:30 IV Flush (NS 10 ml) 10 ml PRN PRN IV IV PROTOCOL; Start 06/13/17 at 14:00 Pantoprazole (Protonix Iv) 40 mg BID@06,18 IV Last administered on 06/22/17 05 :20; Admin Dose 40 MG; Start 06/13/17 at 18:00 Ferrous Sulfate (Feosol Liquid Cup) 300 mg DAILY NGT Last administered on 09:01; Admin Dose 300 MG; Start 06/14/17 at 10:00 Mupirocin (Bactroban) 1 applic BID TOP Last administered on 06/22/17 09:00; Admin Dose 1 APPLIC; Start 06/14/17 at 21:00 Valproate Sodium (Depakene Liquid Cup) 500 mg DAILY NGT Last administered on 09:01; Admin Dose 500 MG; Start 06/14/17 at 16:00 Multivitamins (Multivitamin) 30 ml DAILY NGT Last administered on 06/22/17 09: 01; Admin Dose 30 ML; Start 06/15/17 at 09:30 Amiodarone HCl (Cordarone) 200 mg TID PO Last administered on 06/22/17 13:55; Admin Dose 200 MG; Start 06/21/17 at 09:00 Assessment/Plan Additional Assessment/Plan IMP: 1. s/p Respiratory Failure/Vent 2. Multifocal Pneumonia--HCAP vs. aspiration 3. AMS--improved 4. History of dementia. 5. History of atrial fibrillation. 6. Anemia RECS: 1. Aspiration precautions 2. TF/Free H20 3. Deep vein thrombosis prophylaxis. CHARLEE HERNANDEZ MD Jun 22, 2017 15:00
[2017-06-22] MEDS ORDERED: LORAZEPAM 2 MG INJ IV ONE (17:00)
[2017-06-22] MEDS: TAMSULOSIN (SR) 0.4 MG CAP PO SCH (20:57)
[2017-06-22] MEDS: ATORVASTATIN 20 MG TAB PO SCH (20:57)
[2017-06-23] VITALS (15 sets, daily range): BP systolic 96–138; BP diastolic 55–70; PULSE 62–95; RESP 16–20
[2017-06-23] MEDS: ALBUTEROL/IPRATROPIUM (NEB) 3 ML AMP NEB SCH ×6 (00:19→20:00)
[2017-06-23] MEDS: PANTOPRAZOLE 40 MG INJ IV SCH (05:53)
[2017-06-23] MEDS: FINASTERIDE 5 MG TAB PO SCH (09:02)
[2017-06-23] MEDS: MUPIROCIN 2% 22 GM OINT TOP SCH ×2 (09:02→20:53)
[2017-06-23] MEDS: ASCORBIC ACID 500 MG TAB PO SCH (09:02)
[2017-06-23] MEDS: FERROUS SULFATE 60 MG/ML 5ML CUP NGT SCH (09:03)
[2017-06-23] MEDS: SACCHAROMYCES BOULARDII 250 MG CAP PO SCH ×2 (09:03→20:51)
[2017-06-23] MEDS: VALPROIC ACID LIQUID CUP 250 MG/5 ML CUP NGT SCH (09:03)
[2017-06-23] MEDS: AMIODARONE 200 MG TAB PO SCH ×3 (09:03→20:52)
[2017-06-23] MEDS: GABAPENTIN 300 MG CAP PO SCH ×3 (09:03→20:51)
[2017-06-23] MEDS: MULTIVITAMINS 30 ML CUP NGT SCH (10:29)
--- NOTE | 2017-06-23 10:56 | PN ---
Date/Time of Note Date/Time of Note DATE: 06/23/17 TIME: 10:53 Assessment/Plan VTE Prophylaxis VTE Prophylaxis Intervention: SCD's Lines/Catheters IV [facility]ter Type (from [facility] PICC Line Central line still needed: Yes Urinary Cath still in place: Yes Reason Cath still needed: other (indicate) Assessment/Plan Chief Complaint/Hosp Course 1. Status post sepsis with underlying septic shock secondary to aspiration pneumonia and urinary tract infection. S/P antibiotics as per infectious diseases. 2. Acute respiratory failure. Hypoxic. Status post intubation and extubation. Continue inhaled bronchodilators. 3. Dysphagia. Continue aspiration precautions. Speech therapy evaluation failed. S/P PEG placement on 06/21/2017. 4. Normocytic, normochromic anemia requiring blood transfusions most probably secondary to underlying gastric ulcer and antral gastritis. Continue PPI. 5. 3 active gastric ulcerations and severe antral gastritis. Continue PPI. Pathology from biopsy negative for any H. pylori. 6. Atrial fibrillation with RVR. Status post evaluation by cardiology. On amiodarone. 7. Benign prostatic hypertrophy. Status post Lindsey catheter insertion by urology. Continue finasteride and tamsulosin. 8. Dementia. Continue supportive care. 9. Acute nonoliguric kidney injury. Most probably secondary to hemodynamics. Currently resolved. Status post evaluation by nephrology. 10. Seizure disorder. Continue anticonvulsants. 11. Fluids, electrolytes, and nutrition. G-tube feeds. 12. DVT prophylaxis. B/L SCDs. 13. Gastrointestinal prophylaxis. Proton pump inhibitors. 14. Plan. Continue PPI. Patient needs placement. Case discussed with Dr. Caruso. Problems: Subjective 24 Hr Interval Summary Free Text/Dictation The patient remains afebrile. Remains confused. On B/L soft wrist restraints. Exam/Review of Systems Vital Signs Vitals Vital Signs Date Time Temp Pulse Resp B/P Pulse Ox O2 Delivery O2 Flow Rate FiO2 06/23/17 08:15 97 5.0 06/23/17 08:15 70 20 Nasal Cannula 06/23/17 08:05 98.1 113/66 Intake and Output 06/22/17 06/22/17 06/23/17 15:00 23:00 07:00 Intake Total 200 ml 430 ml Output Total 600 ml 650 ml Balance -400 ml -220 ml Exam General: Adequately build 72 year-old male lying in bed in no apparent distress. HEENT: Normocephalic, atraumatic. Eyes: Anicteric sclerae, conjunctivae clear. ENT: Nasal septum midline, oral mucosa is dry. Poor dentition. Neck supple, JVD noticed. Respiratory: Bilaterally diminished breath sounds. Use of accessory muscles of respiration. B/L coarse rales. Cardiovascular: S1, S2 heard. Abdomen: Soft, nontender, and nondistended. Bowel sounds positive in all 4 quadrants. G-tube. Genitourinary: Deferred. Extremities: No cyanosis, no clubbing, no edema. Peripheral pulses palpable. Neurologic: The patient is awake and alert. Results Result Diagram: 06/22/17 0654 06/22/17 0649 Medications Medications Current Medications Ascorbic Acid (Vitamin C) 500 mg DAILY PO Last administered on 06/23/17 09:02 ; Admin Dose 500 MG; Start 06/13/17 at 09:00 Atorvastatin Calcium (Lipitor) 20 mg QHS PO Last administered on 06/22/17 20: 57; Admin Dose 20 MG; Start 06/12/17 at 21:00 Finasteride (Proscar) 5 mg DAILY PO Last administered on 06/23/17 09:02; Admin Dose 5 MG; Start 06/13/17 at 09:00 Gabapentin (Neurontin) 300 mg TID PO Last administered on 06/23/17 09:03; Admin Dose 300 MG; Start 06/12/17 at 13:00 Saccharomyces Boulardii (Florastor) 250 mg BID PO Last administered on 09:03; Admin Dose 250 MG; Start 06/12/17 at 21:00 Tamsulosin HCl (Flomax) 0.8 mg HS PO Last administered on 06/22/17 20:57; Admin Dose 0.8 MG; Start 06/12/17 at 21:00 Ondansetron HCl (Zofran Inj) 4 mg Q6H PRN IV NAUSEA AND/OR VOMITING; Start at 12:30 Acetaminophen (Tylenol Tab) 650 mg Q6H PRN PO PAIN LEVEL 1-3 OR FEVER; Start at 12:30 Acetaminophen (Tylenol Supp) 650 mg Q6H PRN [place] PAIN LEVEL 1-3 OR FEVER; Start 06/12/17 at 12:30 Acetaminophen/ Hydrocodone Bitart ([place] (5/325)) 1 tab Q6H PRN PO MODERATE PAIN LEVEL 4-6 Last administered on 06/13/17 08:36; Admin Dose 1 TAB; Start at 12:30 Acetaminophen/ Hydrocodone Bitart ([place] (5/325)) 2 tab Q6H PRN PO SEVERE PAIN LEVEL 7-10; Start 06/12/17 at 12:30 Morphine Sulfate (morphine) 2 mg Q4H PRN IV SEVERE PAIN LEVEL 7-10; Start 06/12 at 12:30 Docusate Sodium (Colace) 100 mg Q12H PRN PO CONSTIPATION; Start 06/12/17 at 12: 30 Magnesium Hydroxide (Milk Of Mag) 30 ml DAILY PRN PO CONSTIPATION; Start at 12:30 Bisacodyl (Dulcolax Supp) 10 mg DAILY PRN [place] CONSTIPATION; Start 06/12/17 at 12 :30 Morphine Sulfate (morphine) 2 mg Q2 PRN IV PAIN LEVEL 4-7 Last administered on 06/13/17 05:15; Admin Dose 2 MG; Start 06/12/17 at 14:30 IV Flush (NS 10 ml) 10 ml PRN PRN IV IV PROTOCOL; Start 06/13/17 at 14:00 Pantoprazole (Protonix Iv) 40 mg BID@06,18 IV Last administered on 06/23/17 05 :53; Admin Dose 40 MG; Start 06/13/17 at 18:00 Ferrous Sulfate (Feosol Liquid Cup) 300 mg DAILY NGT Last administered on 09:03; Admin Dose 300 MG; Start 06/14/17 at 10:00 Mupirocin (Bactroban) 1 applic BID TOP Last administered on 06/23/17 09:02; Admin Dose 1 APPLIC; Start 06/14/17 at 21:00 Valproate Sodium (Depakene Liquid Cup) 500 mg DAILY NGT Last administered on 09:03; Admin Dose 500 MG; Start 06/14/17 at 16:00 Multivitamins (Multivitamin) 30 ml DAILY NGT Last administered on 06/23/17 10: 29; Admin Dose 30 ML; Start 06/15/17 at 09:30 Amiodarone HCl (Cordarone) 200 mg TID PO Last administered on 06/23/17t 09:03; Admin Dose 200 MG; Start 06/21/17 at 09:00 ALEXANDRE ULLOA NP Jun 23, 2017 10:56
--- NOTE | 2017-06-23 12:38 | PN ---
Date/Time of Note Date/Time of Note DATE: 06/23/17 TIME: 12:31 Assessment/Plan VTE Prophylaxis VTE Prophylaxis Intervention: SCD's Lines/Catheters IV Catheter Type (from Nrs): PICC Line Central line still needed: Yes Urinary Cath still in place: Yes Reason Cath still needed: urinary retention, other (indicate) (Urethral strictures) Assessment/Plan Chief Complaint/Hosp Course Patient does have severe urethral strictures, urinary tract infection, and urinary retention. Renal function has improved Lindsey catheter is draining well and the urine is clear. keep the Lindsey catheter in and once the patient is active we'll discontinue the Lindsey catheter and see if he does void and empty his bladder Problems: Subjective 24 Hr Interval Summary Subjective hx not possible: pt non-verbal Constitutional: no complaints Respiratory: no complaints Cardiovascular: No edema Genitourinary: other (Lindsey catheter) Skin: no complaints Neurologic: no complaints Endocrine: no complaints Exam/Review of Systems Vital Signs Vitals Vital Signs Date Time Temp Pulse Resp B/P Pulse Ox O2 Delivery O2 Flow Rate FiO2 06/23/17 12:06 97.9 63 19 96/55 98 06/23/17 08:15 5.0 06/23/17 08:15 Nasal Cannula Intake and Output 06/22/17 06/22/17 06/23/17 15:00 23:00 07:00 Intake Total 200 ml 430 ml Output Total 600 ml 650 ml Balance -400 ml -220 ml Exam Constitutional: No oriented Psych: no complaints Respiratory: normal air movement Gastrointestinal: soft Genitourinary - Male: other (Lindsey catheter in place and draining clear urine) Extremities: No calf tenderness Neurological: confused Results Result Diagram: 06/22/17 0654 06/22/17 0649 Medications Medications Current Medications Ascorbic Acid (Vitamin C) 500 mg DAILY PO Last administered on 06/23/17 09:02 ; Admin Dose 500 MG; Start 06/13/17 at 09:00 Atorvastatin Calcium (Lipitor) 20 mg QHS PO Last administered on 06/22/17 20: 57; Admin Dose 20 MG; Start 06/12/17 at 21:00 Finasteride (Proscar) 5 mg DAILY PO Last administered on 06/23/17 09:02; Admin Dose 5 MG; Start 06/13/17 at 09:00 Gabapentin (Neurontin) 300 mg TID PO Last administered on 06/23/17 09:03; Admin Dose 300 MG; Start 06/12/17 at 13:00 Saccharomyces Boulardii (Florastor) 250 mg BID PO Last administered on 09:03; Admin Dose 250 MG; Start 06/12/17 at 21:00 Tamsulosin HCl (Flomax) 0.8 mg HS PO Last administered on 06/22/17 20:57; Admin Dose 0.8 MG; Start 06/12/17 at 21:00 Ondansetron HCl (Zofran Inj) 4 mg Q6H PRN IV NAUSEA AND/OR VOMITING; Start at 12:30 Acetaminophen (Tylenol Tab) 650 mg Q6H PRN PO PAIN LEVEL 1-3 OR FEVER; Start at 12:30 Acetaminophen (Tylenol Supp) 650 mg Q6H PRN [place] PAIN LEVEL 1-3 OR FEVER; Start 06/12/17 at 12:30 Acetaminophen/ Hydrocodone Bitart ([place] (5/325)) 1 tab Q6H PRN PO MODERATE PAIN LEVEL 4-6 Last administered on 06/13/17 08:36; Admin Dose 1 TAB; Start at 12:30 Acetaminophen/ Hydrocodone Bitart ([place] (5/325)) 2 tab Q6H PRN PO SEVERE PAIN LEVEL 7-10; Start 06/12/17 at 12:30 Morphine Sulfate (morphine) 2 mg Q4H PRN IV SEVERE PAIN LEVEL 7-10; Start 06/12 at 12:30 Docusate Sodium (Colace) 100 mg Q12H PRN PO CONSTIPATION; Start 06/12/17 at 12: 30 Magnesium Hydroxide (Milk Of Mag) 30 ml DAILY PRN PO CONSTIPATION; Start at 12:30 Bisacodyl (Dulcolax Supp) 10 mg DAILY PRN [place] CONSTIPATION; Start 06/12/17 at 12 :30 Morphine Sulfate (morphine) 2 mg Q2 PRN IV PAIN LEVEL 4-7 Last administered on 06/13/17 05:15; Admin Dose 2 MG; Start 06/12/17 at 14:30 IV Flush (NS 10 ml) 10 ml PRN PRN IV IV PROTOCOL; Start 06/13/17 at 14:00 Pantoprazole (Protonix Iv) 40 mg BID@06,18 IV Last administered on 06/23/17 05 :53; Admin Dose 40 MG; Start 06/13/17 at 18:00 Ferrous Sulfate (Feosol Liquid Cup) 300 mg DAILY NGT Last administered on 09:03; Admin Dose 300 MG; Start 06/14/17 at 10:00 Mupirocin (Bactroban) 1 applic BID TOP Last administered on 06/23/17 09:02; Admin Dose 1 APPLIC; Start 06/14/17 at 21:00 Valproate Sodium (Depakene Liquid Cup) 500 mg DAILY NGT Last administered on 09:03; Admin Dose 500 MG; Start 06/14/17 at 16:00 Multivitamins (Multivitamin) 30 ml DAILY NGT Last administered on 06/23/17 10: 29; Admin Dose 30 ML; Start 06/15/17 at 09:30 Amiodarone HCl (Cordarone) 200 mg TID PO Last administered on 06/23/17 09:03; Admin Dose 200 MG; Start 06/21/17 at 09:00 BALAJI PERSAUD MD Jun 23, 2017 12:38
--- NOTE | 2017-06-23 15:09 | CONS ---
Date/Time of Note Date/Time of Note DATE: 06/23/17 TIME: 15:08 Consult Date/Type/Reason Admit Date/Time Jun 12, 2017 at 11:47 Initial Consult Date 06/13/17 Type of Consultation: Pulm Ordering Provider: LETI LOPEZ Subjective No events. Objective Vital Signs Date Time Temp Pulse Resp B/P Pulse Ox O2 Delivery O2 Flow Rate FiO2 06/23/17 12:45 61 18 98 Nasal Cannula 5.0 06/23/17 12:06 97.9 96/55 Intake and Output 06/22/17 06/22/17 06/23/17 15:00 23:00 07:00 Intake Total 200 ml 430 ml Output Total 600 ml 650 ml Balance -400 ml -220 ml Exam HEENT: Neck supple; no JVD; no LAD CVS: RRR, S1 and S2 CHEST: Clear ABD: Soft, NT, + BS EXT: No c/c/e Results/Medications Result Diagram: 06/22/17 0654 06/22/17 0649 Medications Current Medications Ascorbic Acid (Vitamin C) 500 mg DAILY PO Last administered on 06/23/17 09:02 ; Admin Dose 500 MG; Start 06/13/17 at 09:00 Atorvastatin Calcium (Lipitor) 20 mg QHS PO Last administered on 06/22/17 20: 57; Admin Dose 20 MG; Start 06/12/17 at 21:00 Finasteride (Proscar) 5 mg DAILY PO Last administered on 06/23/17 09:02; Admin Dose 5 MG; Start 06/13/17 at 09:00 Gabapentin (Neurontin) 300 mg TID PO Last administered on 06/23/17 13:32; Admin Dose 300 MG; Start 06/12/17 at 13:00 Saccharomyces Boulardii (Florastor) 250 mg BID PO Last administered on 09:03; Admin Dose 250 MG; Start 06/12/17 at 21:00 Tamsulosin HCl (Flomax) 0.8 mg HS PO Last administered on 06/22/17 20:57; Admin Dose 0.8 MG; Start 06/12/17 at 21:00 Ondansetron HCl (Zofran Inj) 4 mg Q6H PRN IV NAUSEA AND/OR VOMITING; Start at 12:30 Acetaminophen (Tylenol Tab) 650 mg Q6H PRN PO PAIN LEVEL 1-3 OR FEVER; Start at 12:30 Acetaminophen (Tylenol Supp) 650 mg Q6H PRN [place] PAIN LEVEL 1-3 OR FEVER; Start 06/12/17 at 12:30 Acetaminophen/ Hydrocodone Bitart ([place] (5/325)) 1 tab Q6H PRN PO MODERATE PAIN LEVEL 4-6 Last administered on 06/13/17 08:36; Admin Dose 1 TAB; Start at 12:30 Acetaminophen/ Hydrocodone Bitart ([place] (5/325)) 2 tab Q6H PRN PO SEVERE PAIN LEVEL 7-10; Start 06/12/17 at 12:30 Morphine Sulfate (morphine) 2 mg Q4H PRN IV SEVERE PAIN LEVEL 7-10; Start 06/12 at 12:30 Docusate Sodium (Colace) 100 mg Q12H PRN PO CONSTIPATION; Start 06/12/17 at 12: 30 Magnesium Hydroxide (Milk Of Mag) 30 ml DAILY PRN PO CONSTIPATION; Start at 12:30 Bisacodyl (Dulcolax Supp) 10 mg DAILY PRN [place] CONSTIPATION; Start 06/12/17 at 12 :30 Morphine Sulfate (morphine) 2 mg Q2 PRN IV PAIN LEVEL 4-7 Last administered on 06/13/17 05:15; Admin Dose 2 MG; Start 06/12/17 at 14:30 IV Flush (NS 10 ml) 10 ml PRN PRN IV IV PROTOCOL; Start 06/13/17 at 14:00 Pantoprazole (Protonix Iv) 40 mg BID@06,18 IV Last administered on 06/23/17 05 :53; Admin Dose 40 MG; Start 06/13/17 at 18:00 Ferrous Sulfate (Feosol Liquid Cup) 300 mg DAILY NGT Last administered on 09:03; Admin Dose 300 MG; Start 06/14/17 at 10:00 Mupirocin (Bactroban) 1 applic BID TOP Last administered on 06/23/17 09:02; Admin Dose 1 APPLIC; Start 06/14/17 at 21:00 Valproate Sodium (Depakene Liquid Cup) 500 mg DAILY NGT Last administered on 09:03; Admin Dose 500 MG; Start 06/14/17 at 16:00 Multivitamins (Multivitamin) 30 ml DAILY NGT Last administered on 06/23/17 10: 29; Admin Dose 30 ML; Start 06/15/17 at 09:30 Amiodarone HCl (Cordarone) 200 mg TID PO Last administered on 06/23/17 13:33; Admin Dose 200 MG; Start 06/21/17 at 09:00 Assessment/Plan Additional Assessment/Plan IMP: 1. s/p Respiratory Failure/Vent 2. Multifocal Pneumonia--HCAP vs. aspiration 3. AMS--improved 4. History of dementia. 5. History of atrial fibrillation. 6. Anemia RECS: 1. Aspiration precautions; HOB > 40 2. TF/Free H20 3. Deep vein thrombosis prophylaxis CHARLEE HERNANDEZ MD Jun 23, 2017 15:09
--- NOTE | 2017-06-23 15:32 | CONS ---
Date/Time of Note Date/Time of Note DATE: 06/23/17 TIME: 15:30 Assessment/Plan Assessment/Plan Chief Complaint/Hosp Course SUBJECTIVE DATA: No acute changes, lethargic, looks comfortable, no fevers Temperature 97.9 pulse 63 respirations 19 blood pressure 96/55 saturation 98% on 5 L nasal cannula INDWELLINGS: Lindsey, PEG, PICC line. ANTIMICROBIALS: meropenem PHYSICAL EXAMINATION: GENERAL: Chronically ill-appearing, elderly man, in no distress. HEENT: Head is atraumatic and normocephalic. Sclerae are anicteric. Buccal mucosa is dry. NECK: Supple. Trachea is midline. CHEST: Chest rise is symmetrical. Breath sounds with crackles. HEART: S1, S2. ABDOMEN: Soft. Bowel sounds are present. EXTREMITIES: Without cyanosis. ASSESSMENT: 1. S/p sepsis. 2. S/p Healthcare-associated pneumonia with ongoing aspiration secondary to significant secretion retention. 3. S/p Proteus mirabilis urinary tract infection. 4. Methicillin-resistant Staphylococcus aureus nares colonization. 5. Dementia. 6. History of benign prostatic hyperplasia. PLAN: The patient remains stable, off abx, continue present care, aspiration precautions DW staff Problems: Consultation Date/Type/Reason Admit Date/Time Jun 12, 2017 at 11:47 Initial Consult Date 06/13/17 Type of Consultation: id Referring Provider: LETI LOPEZ Exam/Review of Systems Vital Signs Vitals Vital Signs Date Time Temp Pulse Resp B/P Pulse Ox O2 Delivery O2 Flow Rate FiO2 06/23/17 12:45 61 18 98 Nasal Cannula 5.0 06/23/17 12:06 97.9 96/55 Intake and Output 06/22/17 06/22/17 06/23/17 15:00 23:00 07:00 Intake Total 200 ml 430 ml Output Total 600 ml 650 ml Balance -400 ml -220 ml Results Result Diagram: 06/22/17 0654 06/22/17 0649 Medications Medications Current Medications Ascorbic Acid (Vitamin C) 500 mg DAILY PO Last administered on 06/23/17 09:02 ; Admin Dose 500 MG; Start 06/13/17 at 09:00 Atorvastatin Calcium (Lipitor) 20 mg QHS PO Last administered on 06/22/17 20: 57; Admin Dose 20 MG; Start 06/12/17 at 21:00 Finasteride (Proscar) 5 mg DAILY PO Last administered on 06/23/17 09:02; Admin Dose 5 MG; Start 06/13/17 at 09:00 Gabapentin (Neurontin) 300 mg TID PO Last administered on 06/23/17 13:32; Admin Dose 300 MG; Start 06/12/17 at 13:00 Saccharomyces Boulardii (Florastor) 250 mg BID PO Last administered on 09:03; Admin Dose 250 MG; Start 06/12/17 at 21:00 Tamsulosin HCl (Flomax) 0.8 mg HS PO Last administered on 06/22/17 20:57; Admin Dose 0.8 MG; Start 06/12/17 at 21:00 Ondansetron HCl (Zofran Inj) 4 mg Q6H PRN IV NAUSEA AND/OR VOMITING; Start at 12:30 Acetaminophen (Tylenol Tab) 650 mg Q6H PRN PO PAIN LEVEL 1-3 OR FEVER; Start at 12:30 Acetaminophen (Tylenol Supp) 650 mg Q6H PRN [place] PAIN LEVEL 1-3 OR FEVER; Start 06/12/17 at 12:30 Acetaminophen/ Hydrocodone Bitart ([place] (5/325)) 1 tab Q6H PRN PO MODERATE PAIN LEVEL 4-6 Last administered on 06/13/17 08:36; Admin Dose 1 TAB; Start at 12:30 Acetaminophen/ Hydrocodone Bitart ([place] (5/325)) 2 tab Q6H PRN PO SEVERE PAIN LEVEL 7-10; Start 06/12/17 at 12:30 Morphine Sulfate (morphine) 2 mg Q4H PRN IV SEVERE PAIN LEVEL 7-10; Start 06/12 at 12:30 Docusate Sodium (Colace) 100 mg Q12H PRN PO CONSTIPATION; Start 06/12/17 at 12: 30 Magnesium Hydroxide (Milk Of Mag) 30 ml DAILY PRN PO CONSTIPATION; Start at 12:30 Bisacodyl (Dulcolax Supp) 10 mg DAILY PRN [place] CONSTIPATION; Start 06/12/17 at 12 :30 Morphine Sulfate (morphine) 2 mg Q2 PRN IV PAIN LEVEL 4-7 Last administered on 06/13/17 05:15; Admin Dose 2 MG; Start 06/12/17 at 14:30 IV Flush (NS 10 ml) 10 ml PRN PRN IV IV PROTOCOL; Start 06/13/17 at 14:00 Pantoprazole (Protonix Iv) 40 mg BID@06,18 IV Last administered on 06/23/17 05 :53; Admin Dose 40 MG; Start 06/13/17 at 18:00 Ferrous Sulfate (Feosol Liquid Cup) 300 mg DAILY NGT Last administered on 09:03; Admin Dose 300 MG; Start 06/14/17 at 10:00 Mupirocin (Bactroban) 1 applic BID TOP Last administered on 06/23/17 09:02; Admin Dose 1 APPLIC; Start 06/14/17 at 21:00 Valproate Sodium (Depakene Liquid Cup) 500 mg DAILY NGT Last administered on 09:03; Admin Dose 500 MG; Start 06/14/17 at 16:00 Multivitamins (Multivitamin) 30 ml DAILY NGT Last administered on 06/23/17 10: 29; Admin Dose 30 ML; Start 06/15/17 at 09:30 Amiodarone HCl (Cordarone) 200 mg TID PO Last administered on 06/23/17 13:33; Admin Dose 200 MG; Start 06/21/17 at 09:00 MIREYA HAMPTON NP Jun 23, 2017 15:31
[2017-06-23] MEDS: LANSOPRAZOLE 30 MG CAP NGT SCH (17:47)
[2017-06-23] MEDS: ATORVASTATIN 20 MG TAB PO SCH (20:51)
[2017-06-23] MEDS: TAMSULOSIN (SR) 0.4 MG CAP PO SCH (20:51)
[2017-06-24] VITALS (19 sets, daily range): BP systolic 118–159; BP diastolic 59–79; PULSE 66–89; RESP 18–21
[2017-06-24] MEDS: ALBUTEROL/IPRATROPIUM (NEB) 3 ML AMP NEB SCH ×6 (01:29→20:03)
[2017-06-24] MEDS: LANSOPRAZOLE 30 MG CAP NGT SCH ×2 (06:02→18:18)
[2017-06-24] MEDS: MULTIVITAMINS 30 ML CUP NGT SCH (09:37)
[2017-06-24] MEDS: FERROUS SULFATE 60 MG/ML 5ML CUP NGT SCH (09:37)
[2017-06-24] MEDS: SACCHAROMYCES BOULARDII 250 MG CAP PO SCH ×2 (09:37→21:14)
[2017-06-24] MEDS: VALPROIC ACID LIQUID CUP 250 MG/5 ML CUP NGT SCH (09:37)
[2017-06-24] MEDS: GABAPENTIN 300 MG CAP PO SCH ×3 (09:37→21:14)
[2017-06-24] MEDS: ASCORBIC ACID 500 MG TAB PO SCH (09:38)
[2017-06-24] MEDS: MUPIROCIN 2% 22 GM OINT TOP SCH ×2 (09:38→21:15)
[2017-06-24] MEDS: AMIODARONE 200 MG TAB PO SCH ×3 (09:38→21:14)
[2017-06-24] MEDS: FINASTERIDE 5 MG TAB PO SCH (09:38)
[2017-06-24 10:00] LABS: BASOPHILS % 0.3 % (0.0-2.0); EOSINOPHILS # 0.2 10^3/ul (0.0-0.5); EOSINOPHILS % 1.7 % (0.0-7.0); HEMATOCRIT 30.8 % (42.0-52.0); HEMOGLOBIN 9.4 g/dl (14.0-18.0); LYMPHOCYTES # 1.5 10^3/ul (0.8-2.9); LYMPHOCYTES % 12.8 % (15.0-51.0); MEAN CORPUSCULAR HEMOGLOBIN 28.9 pg (29.0-33.0); MEAN CORPUSCULAR HGB CONC 30.5 g/dl (32.0-37.0); MEAN CORPUSCULAR VOLUME 94.8 fl (82.0-101.0); MEAN PLATELET VOLUME 12.4 fl (7.4-10.4); MONOCYTE # 1.3 10^3/ul (0.3-0.9); MONOCYTES % 10.9 % (0.0-11.0); NEUTROPHIL # 8.6 10^3/ul (1.6-7.5); PLATELET COUNT 381 10^3/UL (140-415); RED BLOOD COUNT 3.25 10^6/ul (4.70-6.10); RED CELL DISTRIBUTION WIDTH 16.1 % (11.5-14.5); WHITE BLOOD COUNT 11.6 10^3/ul (4.8-10.8)
[2017-06-24 10:18] LABS: PHOSPHORUS 2.6 mg/dl (2.5-4.9)
[2017-06-24 10:20] LABS: CALCIUM 8.3 mg/dl (8.4-10.2); CREATININE 0.89 mg/dl (0.61-1.24); POTASSIUM 3.7 mmol/L (3.5-5.1)
--- NOTE | 2017-06-24 12:26 | CONS ---
Date/Time of Note Date/Time of Note DATE: 06/24/17 TIME: 12:25 Assessment/Plan Assessment/Plan Additional Assessment/Plan Assessment and recommendations; 1. Patient admitted with multi marked clinical and radiological improvement. Off antibiotics now. 2. History of atrial fibrillation. 3. History of BPH. 4. History of anemia. 5. History of neuropathy. Continue current treatment. Consider discharge. Consultation Date/Type/Reason Admit Date/Time Jun 12, 2017 at 11:47 Initial Consult Date 06/13/17 Type of Consultation: Pulmonary/critical care Referring Provider: LETI LOPEZ 24 HR Interval Summary Free Text/Dictation Patient's condition is stable. Remains awake. Has remained hemodynamically stable. General exam; elderly male, awake, currently in no distress. Exam/Review of Systems Vital Signs Vitals Vital Signs Date Time Temp Pulse Resp B/P Pulse Ox O2 Delivery O2 Flow Rate FiO2 06/24/17 11:42 97.2 73 19 131/62 96 06/24/17 08:12 Nasal Cannula 4.0 Intake and Output 06/23/17 06/23/17 06/24/17 15:00 23:00 07:00 Intake Total 580 ml 600 ml Output Total 200 ml 550 ml Balance 380 ml 50 ml Exam HEENT exam; supple neck, no JVD. No lymphadenopathy midline trachea. No thyromegaly. Patient has few remaining teeth. Chest exam; diminished but clear breath sounds. S1-S2 audible, no murmurs. Irregular rhythm. Abdomen exam; soft, nontender. No organomegaly. Bowel sounds audible. Extremity exam; no peripheral edema. [employer] exam; no focal deficit. Results Result Diagram: 06/24/1790406/24/17904 Results 24 hrs Laboratory Tests Test 06/24/17 09:05 White Blood Count 11.6 #H Red Blood Count 3.25 L Hemoglobin 9.4 L Hematocrit 30.8 L Mean Corpuscular Volume 94.8 Mean Corpuscular Hemoglobin 28.9 L Mean Corpuscular Hemoglobin Concent 30.5 L Red Cell Distribution Width 16.1 H Platelet Count 381 Mean Platelet Volume 12.4 H Neutrophils % 74.0 Lymphocytes % 12.8 L Monocytes % 10.9 Eosinophils % 1.7 Basophils % 0.3 Nucleated Red Blood Cells % 0.0 Neutrophils # 8.6 H Lymphocytes # 1.5 Monocytes # 1.3 H Eosinophils # 0.2 Basophils # 0.0 Nucleated Red Blood Cells # 0.0 Sodium Level 143 Potassium Level 3.7 Chloride Level 108 Carbon Dioxide Level 28 Anion Gap 11 Blood Urea Nitrogen 21 H Creatinine 0.89 Glucose Level 119 Calcium Level 8.3 L Phosphorus Level 2.6 Magnesium Level 2.0 Medications Medications Current Medications Ascorbic Acid (Vitamin C) 500 mg DAILY PO Last administered on 06/24/17 09:38 ; Admin Dose 500 MG; Start 06/13/17 at 09:00 Atorvastatin Calcium (Lipitor) 20 mg QHS PO Last administered on 06/23/17 20: 51; Admin Dose 20 MG; Start 06/12/17 at 21:00 Finasteride (Proscar) 5 mg DAILY PO Last administered on 06/24/17 09:38; Admin Dose 5 MG; Start 06/13/17 at 09:00 Gabapentin (Neurontin) 300 mg TID PO Last administered on 06/24/17 09:37; Admin Dose 300 MG; Start 06/12/17 at 13:00 Saccharomyces Boulardii (Florastor) 250 mg BID PO Last administered on 09:37; Admin Dose 250 MG; Start 06/12/17 at 21:00 Tamsulosin HCl (Flomax) 0.8 mg HS PO Last administered on 06/23/17 20:51; Admin Dose 0.8 MG; Start 06/12/17 at 21:00 Ondansetron HCl (Zofran Inj) 4 mg Q6H PRN IV NAUSEA AND/OR VOMITING; Start at 12:30 Acetaminophen (Tylenol Tab) 650 mg Q6H PRN PO PAIN LEVEL 1-3 OR FEVER; Start at 12:30 Acetaminophen (Tylenol Supp) 650 mg Q6H PRN [place] PAIN LEVEL 1-3 OR FEVER; Start 06/12/17 at 12:30 Acetaminophen/ Hydrocodone Bitart ([place] (5/325)) 1 tab Q6H PRN PO MODERATE PAIN LEVEL 4-6 Last administered on 06/13/17 08:36; Admin Dose 1 TAB; Start at 12:30 Acetaminophen/ Hydrocodone Bitart ([place] (5/325)) 2 tab Q6H PRN PO SEVERE PAIN LEVEL 7-10; Start 06/12/17 at 12:30 Morphine Sulfate (morphine) 2 mg Q4H PRN IV SEVERE PAIN LEVEL 7-10; Start 06/12 at 12:30 Docusate Sodium (Colace) 100 mg Q12H PRN PO CONSTIPATION; Start 06/12/17 at 12: 30 Magnesium Hydroxide (Milk Of Mag) 30 ml DAILY PRN PO CONSTIPATION; Start at 12:30 Bisacodyl (Dulcolax Supp) 10 mg DAILY PRN [place] CONSTIPATION; Start 06/12/17 at 12 :30 Morphine Sulfate (morphine) 2 mg Q2 PRN IV PAIN LEVEL 4-7 Last administered on 06/13/17 05:15; Admin Dose 2 MG; Start 06/12/17 at 14:30 IV Flush (NS 10 ml) 10 ml PRN PRN IV IV PROTOCOL; Start 06/13/17 at 14:00 Ferrous Sulfate (Feosol Liquid Cup) 300 mg DAILY NGT Last administered on 09:37; Admin Dose 300 MG; Start 06/14/17 at 10:00 Mupirocin (Bactroban) 1 applic BID TOP Last administered on 06/24/17 09:38; Admin Dose 1 APPLIC; Start 06/14/17 at 21:00 Valproate Sodium (Depakene Liquid Cup) 500 mg DAILY NGT Last administered on 09:37; Admin Dose 500 MG; Start 06/14/17 at 16:00 Multivitamins (Multivitamin) 30 ml DAILY NGT Last administered on 06/24/17 09: 37; Admin Dose 30 ML; Start 06/15/17 at 09:30 Amiodarone HCl (Cordarone) 200 mg TID PO Last administered on 06/24/17 09:38; Admin Dose 200 MG; Start 06/21/17 at 09:00 Lansoprazole (Prevacid) 30 mg BID@18 NGT Last administered on 06/24/17 06: 02; Admin Dose 30 MG; Start 06/23/17 at 18:00 LIZ GRACIA Jun 24, 2017 12:26
--- NOTE | 2017-06-24 12:48 | PN ---
Date/Time of Note Date/Time of Note DATE: 06/24/17 TIME: 12:41 Assessment/Plan VTE Prophylaxis VTE Prophylaxis Intervention: SCD's Lines/Catheters IV C[facility]ter Type [facility]from [facility] PICC Line Urinary Cath still in place: Yes Assessment/Plan Chief Complaint/Hosp Course Assessment and plan 1. Status post sepsis with underlying septic shock secondary to aspiration pneumonia and urinary tract infection. Patient is status post antibiotics per ID wine consultant. Improved at present. Will monitor. 2. Dysphagia. Continue aspiration precautions. Patient does have PEG tube in place that was placed on June 21, 2017. Continue to monitor. 3. Acute respiratory failure. Patient status post intubation and extubation. Will provide with bronchodilators as needed. 4. gastric ulcerations and severe antral gastritis. Continue PPI medication. Biopsy was negative for H. pylori 5. Normocytic normochromic anemia. Patient status post blood transfusion. Improved at present. Continue on PPI. 6. Atrial fibrillation with RVR. Ferryboat Helper following. Placed on amiodarone. Improved at present. 7. benign prostatic hypertrophy. Will continue on finasteride and tamsulosin. 8. Underlying dementia. Continue supportive care. Aspiration precautions. 8. Acute nonoliguric kidney disease. Medications to be renally dosed. Consulting It Architect is following. 9. Seizure disorder. Continue anticonvulsants Disposition and plan: Overall appears improved. Awaiting placement. We will continue in-house monitoring for now. Discussed plan of care with Dr. Quinteros Problems: Subjective 24 Hr Interval Summary Free Text/Dictation Comfortable at present. No signs or symptoms of distress noted at this time Exam/Review of Systems Vital Signs Vitals Vital Signs Date Time Temp Pulse Resp B/P Pulse Ox O2 Delivery O2 Flow Rate FiO2 06/24/17 11:42 97.2 73 19 131/62 96 06/24/17 08:12 Nasal Cannula 4.0 Intake and Output 06/23/17 06/23/17 06/24/17 15:00 23:00 07:00 Intake Total 580 ml 600 ml Output Total 200 ml 550 ml Balance 380 ml 50 ml Exam Constitutional: alert, other Head: normocephalic (Noted with underlying dementia) Respiratory: clear to auscultation, normal air movement Cardiovascular: other (Regular rate) Gastrointestinal: non-tender, other (G-tube in place), soft Musculoskeletal: No nl gait and stance Extremities: normal pulses Neurological: other (With underlying dementia) Results Result Diagram: 06/24/1790406/24/17904 Results 24 hrs Laboratory Tests Test 06/24/17 09:05 White Blood Count 11.6 #H Red Blood Count 3.25 L Hemoglobin 9.4 L Hematocrit 30.8 L Mean Corpuscular Volume 94.8 Mean Corpuscular Hemoglobin 28.9 L Mean Corpuscular Hemoglobin Concent 30.5 L Red Cell Distribution Width 16.1 H Platelet Count 381 Mean Platelet Volume 12.4 H Neutrophils % 74.0 Lymphocytes % 12.8 L Monocytes % 10.9 Eosinophils % 1.7 Basophils % 0.3 Nucleated Red Blood Cells % 0.0 Neutrophils # 8.6 H Lymphocytes # 1.5 Monocytes # 1.3 H Eosinophils # 0.2 Basophils # 0.0 Nucleated Red Blood Cells # 0.0 Sodium Level 143 Potassium Level 3.7 Chloride Level 108 Carbon Dioxide Level 28 Anion Gap 11 Blood Urea Nitrogen 21 H Creatinine 0.89 Glucose Level 119 Calcium Level 8.3 L Phosphorus Level 2.6 Magnesium Level 2.0 Medications Medications Current Medications Ascorbic Acid (Vitamin C) 500 mg DAILY PO Last administered on 06/24/17 09:38 ; Admin Dose 500 MG; Start 06/13/17 at 09:00 Atorvastatin Calcium (Lipitor) 20 mg QHS PO Last administered on 06/23/17 20: 51; Admin Dose 20 MG; Start 06/12/17 at 21:00 Finasteride (Proscar) 5 mg DAILY PO Last administered on 06/24/17 09:38; Admin Dose 5 MG; Start 06/13/17 at 09:00 Gabapentin (Neurontin) 300 mg TID PO Last administered on 06/24/17 09:37; Admin Dose 300 MG; Start 06/12/17 at 13:00 Saccharomyces Boulardii (Florastor) 250 mg BID PO Last administered on 09:37; Admin Dose 250 MG; Start 06/12/17 at 21:00 Tamsulosin HCl (Flomax) 0.8 mg HS PO Last administered on 06/23/17 20:51; Admin Dose 0.8 MG; Start 06/12/17 at 21:00 Ondansetron HCl (Zofran Inj) 4 mg Q6H PRN IV NAUSEA AND/OR VOMITING; Start at 12:30 Acetaminophen (Tylenol Tab) 650 mg Q6H PRN PO PAIN LEVEL 1-3 OR FEVER; Start at 12:30 Acetaminophen (Tylenol Supp) 650 mg Q6H PRN [place] PAIN LEVEL 1-3 OR FEVER; Start 06/12/17 at 12:30 Acetaminophen/ Hydrocodone Bitart ([place] (5/325)) 1 tab Q6H PRN PO MODERATE PAIN LEVEL 4-6 Last administered on 06/13/17 08:36; Admin Dose 1 TAB; Start at 12:30 Acetaminophen/ Hydrocodone Bitart ([place] (5/325)) 2 tab Q6H PRN PO SEVERE PAIN LEVEL 7-10; Start 06/12/17 at 12:30 Morphine Sulfate (morphine) 2 mg Q4H PRN IV SEVERE PAIN LEVEL 7-10; Start 06/12 at 12:30 Docusate Sodium (Colace) 100 mg Q12H PRN PO CONSTIPATION; Start 06/12/17 at 12: 30 Magnesium Hydroxide (Milk Of Mag) 30 ml DAILY PRN PO CONSTIPATION; Start at 12:30 Bisacodyl (Dulcolax Supp) 10 mg DAILY PRN [place] CONSTIPATION; Start 06/12/17 at 12 :30 Morphine Sulfate (morphine) 2 mg Q2 PRN IV PAIN LEVEL 4-7 Last administered on 06/13/17 05:15; Admin Dose 2 MG; Start 06/12/17 at 14:30 IV Flush (NS 10 ml) 10 ml PRN PRN IV IV PROTOCOL; Start 06/13/17 at 14:00 Ferrous Sulfate (Feosol Liquid Cup) 300 mg DAILY NGT Last administered on 09:37; Admin Dose 300 MG; Start 06/14/17 at 10:00 Mupirocin (Bactroban) 1 applic BID TOP Last administered on 06/24/17 09:38; Admin Dose 1 APPLIC; Start 06/14/17 at 21:00 Valproate Sodium (Depakene Liquid Cup) 500 mg DAILY NGT Last administered on 09:37; Admin Dose 500 MG; Start 06/14/17 at 16:00 Multivitamins (Multivitamin) 30 ml DAILY NGT Last administered on 06/24/17 09: 37; Admin Dose 30 ML; Start 06/15/17 at 09:30 Amiodarone HCl (Cordarone) 200 mg TID PO Last administered on 06/24/17 09:38; Admin Dose 200 MG; Start 06/21/17 at 09:00 Lansoprazole (Prevacid) 30 mg BID@06,18 NGT Last administered on 06/24/17 06: 02; Admin Dose 30 MG; Start 06/23/17 at 18:00 LETI LOPEZ Jun 24, 2017 12:48 LETI LOPEZ Jun 24, 2017 12:48
--- NOTE | 2017-06-24 19:40 | PN ---
Date/Time of Note Date/Time of Note DATE: 06/24/17 TIME: 19:37 Assessment/Plan VTE Prophylaxis VTE Prophylaxis Intervention: LMWH Lines/Catheters IV Catheter Type (from [facility]): PICC Line Central line still needed: Yes Urinary Cath still in place: Yes Reason Cath still needed: urinary retention Assessment/Plan Chief Complaint/Hosp Course Patient does have severe urethral strictures, urinary tract infection, and urinary retention. Renal function has improved Lindsey catheter is draining well and the urine is clear. keep the Lindsey catheter in and once the patient is active we'll discontinue the Lindsey catheter and see if he does void and empty his bladder Problems: Subjective 24 Hr Interval Summary Constitutional: disoriented, no complaints, other (Tries to get out of bed) Eyes: no complaints ENT: no complaints Respiratory: no complaints Cardiovascular: No edema Gastrointestinal: no complaints Genitourinary: other (Lindsey catheter), No bleeding, No hematuria Musculoskeletal: no complaints Skin: bruising Neurologic: confusion Exam/Review of Systems Vital Signs Vitals Vital Signs Date Time Temp Pulse Resp B/P Pulse Ox O2 Delivery O2 Flow Rate FiO2 06/24/17 18:01 97.5 68 19 134/65 97 06/24/17 18:00 Nasal Cannula 4.0 Intake and Output 06/23/17 06/23/17 06/24/17 15:00 23:00 07:00 Intake Total 580 ml 600 ml Output Total 200 ml 550 ml Balance 380 ml 50 ml Exam Psych: confusion Head: normocephalic Eyes: nl conjunctiva Neck: non-tender Respiratory: normal air movement Cardiovascular: No edema Gastrointestinal: soft Genitourinary - Male: other (Lindsey catheter draining clear urine) Extremities: No calf tenderness, No edema Results Result Diagram: 06/24/1790406/24/17904 Results 24 hrs Laboratory Tests Test 06/24/17 09:05 White Blood Count 11.6 #H Red Blood Count 3.25 L Hemoglobin 9.4 L Hematocrit 30.8 L Mean Corpuscular Volume 94.8 Mean Corpuscular Hemoglobin 28.9 L Mean Corpuscular Hemoglobin Concent 30.5 L Red Cell Distribution Width 16.1 H Platelet Count 381 Mean Platelet Volume 12.4 H Neutrophils % 74.0 Lymphocytes % 12.8 L Monocytes % 10.9 Eosinophils % 1.7 Basophils % 0.3 Nucleated Red Blood Cells % 0.0 Neutrophils # 8.6 H Lymphocytes # 1.5 Monocytes # 1.3 H Eosinophils # 0.2 Basophils # 0.0 Nucleated Red Blood Cells # 0.0 Sodium Level 143 Potassium Level 3.7 Chloride Level 108 Carbon Dioxide Level 28 Anion Gap 11 Blood Urea Nitrogen 21 H Creatinine 0.89 Glucose Level 119 Calcium Level 8.3 L Phosphorus Level 2.6 Magnesium Level 2.0 Medications Medications Current Medications Ascorbic Acid (Vitamin C) 500 mg DAILY PO Last administered on 06/24/17 09:38 ; Admin Dose 500 MG; Start 06/13/17 at 09:00 Atorvastatin Calcium (Lipitor) 20 mg QHS PO Last administered on 06/23/17 20: 51; Admin Dose 20 MG; Start 06/12/17 at 21:00 Finasteride (Proscar) 5 mg DAILY PO Last administered on 06/24/17 09:38; Admin Dose 5 MG; Start 06/13/17 at 09:00 Gabapentin (Neurontin) 300 mg TID PO Last administered on 06/24/17 13:20; Admin Dose 300 MG; Start 06/12/17 at 13:00 Saccharomyces Boulardii (Florastor) 250 mg BID PO Last administered on 09:37; Admin Dose 250 MG; Start 06/12/17 at 21:00 Tamsulosin HCl (Flomax) 0.8 mg HS PO Last administered on 06/23/17 20:51; Admin Dose 0.8 MG; Start 06/12/17 at 21:00 Ondansetron HCl (Zofran Inj) 4 mg Q6H PRN IV NAUSEA AND/OR VOMITING; Start at 12:30 Acetaminophen (Tylenol Tab) 650 mg Q6H PRN PO PAIN LEVEL 1-3 OR FEVER; Start at 12:30 Acetaminophen (Tylenol Supp) 650 mg Q6H PRN [place] PAIN LEVEL 1-3 OR FEVER; Start 06/12/17 at 12:30 Acetaminophen/ Hydrocodone Bitart ([place] (5/325)) 1 tab Q6H PRN PO MODERATE PAIN LEVEL 4-6 Last administered on 06/13/17 08:36; Admin Dose 1 TAB; Start at 12:30 Acetaminophen/ Hydrocodone Bitart ([place] (5/325)) 2 tab Q6H PRN PO SEVERE PAIN LEVEL 7-10; Start 06/12/17 at 12:30 Morphine Sulfate (morphine) 2 mg Q4H PRN IV SEVERE PAIN LEVEL 7-10; Start 06/12 at 12:30 Docusate Sodium (Colace) 100 mg Q12H PRN PO CONSTIPATION; Start 06/12/17 at 12: 30 Magnesium Hydroxide (Milk Of Mag) 30 ml DAILY PRN PO CONSTIPATION; Start at 12:30 Bisacodyl (Dulcolax Supp) 10 mg DAILY PRN [place] CONSTIPATION; Start 06/12/17 at 12 :30 Morphine Sulfate (morphine) 2 mg Q2 PRN IV PAIN LEVEL 4-7 Last administered on 06/13/17 05:15; Admin Dose 2 MG; Start 06/12/17 at 14:30 IV Flush (NS 10 ml) 10 ml PRN PRN IV IV PROTOCOL; Start 06/13/17 at 14:00 Ferrous Sulfate (Feosol Liquid Cup) 300 mg DAILY NGT Last administered on 09:37; Admin Dose 300 MG; Start 06/14/17 at 10:00 Mupirocin (Bactroban) 1 applic BID TOP Last administered on 06/24/17 09:38; Admin Dose 1 APPLIC; Start 06/14/17 at 21:00 Valproate Sodium (Depakene Liquid Cup) 500 mg DAILY NGT Last administered on 09:37; Admin Dose 500 MG; Start 06/14/17 at 16:00 Multivitamins (Multivitamin) 30 ml DAILY NGT Last administered on 06/24/17 09: 37; Admin Dose 30 ML; Start 06/15/17 at 09:30 Amiodarone HCl (Cordarone) 200 mg TID PO Last administered on 06/24/17 13:20; Admin Dose 200 MG; Start 06/21/17 at 09:00 Lansoprazole (Prevacid) 30 mg BID@,18 NGT Last administered on 06/24/17 18: 18; Admin Dose 30 MG; Start 06/23/17 at 18:00 BALAJI PERSAUD MD Jun 24, 2017 19:40
[2017-06-24] MEDS: ATORVASTATIN 20 MG TAB PO SCH (21:14)
[2017-06-24] MEDS: TAMSULOSIN (SR) 0.4 MG CAP PO SCH (21:14)
[2017-06-25] VITALS (19 sets, daily range): BP systolic 108–144; BP diastolic 55–80; PULSE 49–89; RESP 18–21
[2017-06-25] MEDS: ALBUTEROL/IPRATROPIUM (NEB) 3 ML AMP NEB SCH ×6 (01:33→20:03)
[2017-06-25] MEDS: LANSOPRAZOLE 30 MG CAP NGT SCH ×2 (05:22→18:22)
[2017-06-25] MEDS: ASCORBIC ACID 500 MG TAB PO SCH (09:35)
[2017-06-25] MEDS: SACCHAROMYCES BOULARDII 250 MG CAP PO SCH ×2 (09:36→21:08)
[2017-06-25] MEDS: GABAPENTIN 300 MG CAP PO SCH ×3 (09:36→21:09)
[2017-06-25] MEDS: FINASTERIDE 5 MG TAB PO SCH (09:36)
[2017-06-25] MEDS: AMIODARONE 200 MG TAB PO SCH ×3 (09:36→21:08)
[2017-06-25] MEDS: VALPROIC ACID LIQUID CUP 250 MG/5 ML CUP NGT SCH (09:37)
[2017-06-25] MEDS: FERROUS SULFATE 60 MG/ML 5ML CUP NGT SCH (09:37)
[2017-06-25] MEDS: MULTIVITAMINS 30 ML CUP NGT SCH (09:37)
[2017-06-25] MEDS: MUPIROCIN 2% 22 GM OINT TOP SCH ×2 (09:38→21:09)
--- NOTE | 2017-06-25 09:55 | PDOCDIS ---
Discharge Instructions DIAGNOSIS Discharge Diagnosis 1. Status post sepsis with underlying septic shock secondary to aspiration pneumonia and urinary tract infection. 2. Dysphagia. 3. Acute respiratory failure. 4. gastric ulcerations and antral gastritis 5. Normocytic normochromic anemia. 6. Atrial fibrillation with RVR. 7. benign prostatic hypertrophy. 8. Underlying dementia. 8. Acute nonoliguric kidney disease. 9. Seizure disorder. HOME CARE INSTRUCTIONS: Special Diet: tube feedings FOLLOW UP/APPOINTMENTS Follow-up Plan 1. Follow up with Dr. Tarun Solis in one week OTHER ORDERS: Other Orders: [facility] care and [facility] LETI LOPEZ Jun 25, 2017 09:55
--- NOTE | 2017-06-25 11:33 | CONS ---
Date/Time of Note Date/Time of Note DATE: 06/25/17 TIME: 11:31 Assessment/Plan Assessment/Plan Additional Assessment/Plan Assessment and recommendations; 1. Patient admitted with bilateral pneumonia with marked clinical improvement. Off antibiotics. 2. History of BPH, anemia, atrial fibrillation, neuropathy and chronic dysphagia. 3. History of dementia. Continue current treatment. Consider discharge. Consultation Date/Type/Reason Admit Date/Time Jun 12, 2017 at 11:47 Initial Consult Date 06/13/17 Type of Consultation: Pulmonary/critical care Referring Provider: LETI LOPEZ 24 HR Interval Summary Free Text/Dictation Patient's condition is stable. Remains awake. Has remained hemodynamically stable. General exam; elderly male, awake, currently in no distress. Exam/Review of Systems Vital Signs Vitals Vital Signs Date Time Temp Pulse Resp B/P Pulse Ox O2 Delivery O2 Flow Rate FiO2 06/25/17 09:26 5.0 06/25/17 09:26 66 20 96 Nasal Cannula 06/25/17 08:02 98.6 127/63 Intake and Output 06/24/17 06/24/17 06/25/17 15:00 23:00 07:00 Intake Total 600 ml 640 ml Output Total 500 ml 450 ml Balance 100 ml 190 ml Exam HEENT exam; supple neck, no JVD. No lymphadenopathy. Midline trachea. No thyromegaly. Patient has few remaining teeth. Chest exam; diminished breath sounds bilaterally. S1-S2 audible, no murmurs. Irregular rhythm. Abdomen exam; soft, G-tube in place. Bowel sounds audible. No organomegaly. Extremity exam; no peripheral edema. MASONRY INSPECTOR exam; patient is awake and follows very simple commands only. Results Result Diagram: 06/24/1790406/24/17904 Medications Medications Current Medications Ascorbic Acid (Vitamin C) 500 mg DAILY PO Last administered on 06/25/17 09:35 ; Admin Dose 500 MG; Start 06/13/17 at 09:00 Atorvastatin Calcium (Lipitor) 20 mg QHS PO Last administered on 06/24/17 21: 14; Admin Dose 20 MG; Start 06/12/17 at 21:00 Finasteride (Proscar) 5 mg DAILY PO Last administered on 06/25/17 09:36; Admin Dose 5 MG; Start 06/13/17 at 09:00 Gabapentin (Neurontin) 300 mg TID PO Last administered on 06/25/17 09:36; Admin Dose 300 MG; Start 06/12/17 at 13:00 Saccharomyces Boulardii (Florastor) 250 mg BID PO Last administered on 09:36; Admin Dose 250 MG; Start 06/12/17 at 21:00 Tamsulosin HCl (Flomax) 0.8 mg HS PO Last administered on 06/24/17 21:14; Admin Dose 0.8 MG; Start 06/12/17 at 21:00 Ondansetron HCl (Zofran Inj) 4 mg Q6H PRN IV NAUSEA AND/OR VOMITING; Start at 12:30 Acetaminophen (Tylenol Tab) 650 mg Q6H PRN PO PAIN LEVEL 1-3 OR FEVER; Start at 12:30 Acetaminophen (Tylenol Supp) 650 mg Q6H PRN [place] PAIN LEVEL 1-3 OR FEVER; Start 06/12/17 at 12:30 Acetaminophen/ Hydrocodone Bitart ([place] (5/325)) 1 tab Q6H PRN PO MODERATE PAIN LEVEL 4-6 Last administered on 06/13/17 08:36; Admin Dose 1 TAB; Start at 12:30 Acetaminophen/ Hydrocodone Bitart ([place] (5/325)) 2 tab Q6H PRN PO SEVERE PAIN LEVEL 7-10; Start 06/12/17 at 12:30 Morphine Sulfate (morphine) 2 mg Q4H PRN IV SEVERE PAIN LEVEL 7-10; Start 06/12 at 12:30 Docusate Sodium (Colace) 100 mg Q12H PRN PO CONSTIPATION; Start 06/12/17 at 12: 30 Magnesium Hydroxide (Milk Of Mag) 30 ml DAILY PRN PO CONSTIPATION; Start at 12:30 Bisacodyl (Dulcolax Supp) 10 mg DAILY PRN [place] CONSTIPATION; Start 06/12/17 at 12 :30 Morphine Sulfate (morphine) 2 mg Q2 PRN IV PAIN LEVEL 4-7 Last administered on 06/13/17 05:15; Admin Dose 2 MG; Start 06/12/17 at 14:30 IV Flush (NS 10 ml) 10 ml PRN PRN IV IV PROTOCOL; Start 06/13/17 at 14:00 Ferrous Sulfate (Feosol Liquid Cup) 300 mg DAILY NGT Last administered on 06/25 09:37; Admin Dose 300 MG; Start 06/14/17 at 10:00 Mupirocin (Bactroban) 1 applic BID TOP Last administered on 06/25/17 09:38; Admin Dose 1 APPLIC; Start 06/14/17 at 21:00 Valproate Sodium (Depakene Liquid Cup) 500 mg DAILY NGT Last administered on 09:37; Admin Dose 500 MG; Start 06/14/17 at 16:00 Multivitamins (Multivitamin) 30 ml DAILY NGT Last administered on 06/25/17 09 :37; Admin Dose 30 ML; Start 06/15/17 at 09:30 Amiodarone HCl (Cordarone) 200 mg TID PO Last administered on 06/25/17 09:36 ; Admin Dose 200 MG; Start 06/21/17 at 09:00 Lansoprazole (Prevacid) 30 mg BID@06,18 NGT Last administered on 06/25/17 05: 22; Admin Dose 30 MG; Start 06/23/17 at 18:00 LIZ GRACIA Jun 25, 2017 11:33
--- NOTE | 2017-06-25 18:45 | PN ---
Date/Time of Note Date/Time of Note DATE: 06/25/17 TIME: 18:36 Assessment/Plan VTE Prophylaxis VTE Prophylaxis Intervention: LMWH, SCD's Lines/Catheters Reason Cath still needed: urinary retention Assessment/Plan Chief Complaint/Hosp Course Patient does have severe urethral strictures, urinary tract infection, and urinary retention. Renal function has improved Lindsey catheter was removed and the patient has not voided yet. We will check him with a bladder scan and if he goes into retention I will insert a new catheter in the morning and then he could be discharged to a care home facility with a Lindsey catheter Problems: Subjective 24 Hr Interval Summary Constitutional: disoriented, other (Confused) Eyes: no complaints ENT: no complaints Respiratory: no complaints Cardiovascular: no complaints Gastrointestinal: no complaints Genitourinary: other (Lindsey catheter was removed and the patient has not voided since) Musculoskeletal: no complaints Skin: no complaints Neurologic: no complaints Endocrine: no complaints Exam/Review of Systems Vital Signs Vitals Vital Signs Date Time Temp Pulse Resp B/P Pulse Ox O2 Delivery O2 Flow Rate FiO2 06/25/17 17:18 5.0 06/25/17 17:18 78 20 95 Nasal Cannula 06/25/17 15:44 97.3 108/55 Intake and Output 06/24/17 06/24/17 06/25/17 15:00 23:00 07:00 Intake Total 600 ml 640 ml Output Total 500 ml 450 ml Balance 100 ml 190 ml Exam Psych: confusion, other (Restless) ENMT: nl external ears & nose Neck: supple Cardiovascular: No edema Gastrointestinal: soft Genitourinary - Male: nl penis, nl scrotum, other (Bladder is not distended or percussible) Extremities: No calf tenderness Results Result Diagram: 06/24/1790406/24/17904 Medications Medications Current Medications Ascorbic Acid (Vitamin C) 500 mg DAILY PO Last administered on 06/25/17 09:35 ; Admin Dose 500 MG; Start 06/13/17 at 09:00 Atorvastatin Calcium (Lipitor) 20 mg QHS PO Last administered on 06/24/17 21: 14; Admin Dose 20 MG; Start 06/12/17 at 21:00 Finasteride (Proscar) 5 mg DAILY PO Last administered on 06/25/17 09:36; Admin Dose 5 MG; Start 06/13/17 at 09:00 Gabapentin (Neurontin) 300 mg TID PO Last administered on 06/25/17 13:00; Admin Dose 300 MG; Start 06/12/17 at 13:00 Saccharomyces Boulardii (Florastor) 250 mg BID PO Last administered on 09:36; Admin Dose 250 MG; Start 06/12/17 at 21:00 Tamsulosin HCl (Flomax) 0.8 mg HS PO Last administered on 06/24/17 21:14; Admin Dose 0.8 MG; Start 06/12/17 at 21:00 Ondansetron HCl (Zofran Inj) 4 mg Q6H PRN IV NAUSEA AND/OR VOMITING; Start at 12:30 Acetaminophen (Tylenol Tab) 650 mg Q6H PRN PO PAIN LEVEL 1-3 OR FEVER; Start at 12:30 Acetaminophen (Tylenol Supp) 650 mg Q6H PRN [place] PAIN LEVEL 1-3 OR FEVER; Start 06/12/17 at 12:30 Acetaminophen/ Hydrocodone Bitart ([place] (5/325)) 1 tab Q6H PRN PO MODERATE PAIN LEVEL 4-6 Last administered on 06/13/17 08:36; Admin Dose 1 TAB; Start at 12:30 Acetaminophen/ Hydrocodone Bitart ([place] (5/325)) 2 tab Q6H PRN PO SEVERE PAIN LEVEL 7-10; Start 06/12/17 at 12:30 Morphine Sulfate (morphine) 2 mg Q4H PRN IV SEVERE PAIN LEVEL 7-10; Start 06/12 at 12:30 Docusate Sodium (Colace) 100 mg Q12H PRN PO CONSTIPATION; Start 06/12/17 at 12: 30 Magnesium Hydroxide (Milk Of Mag) 30 ml DAILY PRN PO CONSTIPATION; Start at 12:30 Bisacodyl (Dulcolax Supp) 10 mg DAILY PRN [place] CONSTIPATION; Start 06/12/17 at 12 :30 Morphine Sulfate (morphine) 2 mg Q2 PRN IV PAIN LEVEL 4-7 Last administered on 06/13/17 05:15; Admin Dose 2 MG; Start 06/12/17 at 14:30 IV Flush (NS 10 ml) 10 ml PRN PRN IV IV PROTOCOL; Start 06/13/17 at 14:00 Ferrous Sulfate (Feosol Liquid Cup) 300 mg DAILY NGT Last administered on 06/25 09:37; Admin Dose 300 MG; Start 06/14/17 at 10:00 Mupirocin (Bactroban) 1 applic BID TOP Last administered on 06/25/17 09:38; Admin Dose 1 APPLIC; Start 06/14/17 at 21:00 Valproate Sodium (Depakene Liquid Cup) 500 mg DAILY NGT Last administered on 09:37; Admin Dose 500 MG; Start 06/14/17 at 16:00 Multivitamins (Multivitamin) 30 ml DAILY NGT Last administered on 06/25/17 09 :37; Admin Dose 30 ML; Start 06/15/17 at 09:30 Amiodarone HCl (Cordarone) 200 mg TID PO Last administered on 06/25/17 13:00 ; Admin Dose 200 MG; Start 06/21/17 at 09:00 Lansoprazole (Prevacid) 30 mg BID@18 NGT Last administered on 06/25/17 18: 22; Admin Dose 30 MG; Start 06/23/17 at 18:00 BALAJI PERSAUD MD Jun 25, 2017 18:45
[2017-06-25] MEDS: ATORVASTATIN 20 MG TAB PO SCH (21:08)
[2017-06-25] MEDS: TAMSULOSIN (SR) 0.4 MG CAP PO SCH (21:09)
[2017-06-26] VITALS (17 sets, daily range): BP systolic 105–144; BP diastolic 54–72; PULSE 63–84; RESP 20
[2017-06-26] MEDS: ALBUTEROL/IPRATROPIUM (NEB) 3 ML AMP NEB SCH ×5 (01:00→16:36)
[2017-06-26] MEDS: LANSOPRAZOLE 30 MG CAP NGT SCH ×2 (05:34→17:20)
[2017-06-26] MEDS: SACCHAROMYCES BOULARDII 250 MG CAP PO SCH (08:20)
[2017-06-26] MEDS: VALPROIC ACID LIQUID CUP 250 MG/5 ML CUP NGT SCH (08:21)
[2017-06-26] MEDS: ASCORBIC ACID 500 MG TAB PO SCH (08:21)
[2017-06-26] MEDS: FINASTERIDE 5 MG TAB PO SCH (08:21)
[2017-06-26] MEDS: FERROUS SULFATE 60 MG/ML 5ML CUP NGT SCH (08:21)
[2017-06-26] MEDS: MULTIVITAMINS 30 ML CUP NGT SCH (08:21)
[2017-06-26] MEDS: GABAPENTIN 300 MG CAP PO SCH ×2 (08:21→12:32)
[2017-06-26] MEDS: AMIODARONE 200 MG TAB PO SCH ×2 (08:22→12:32)
[2017-06-26] MEDS: MUPIROCIN 2% 22 GM OINT TOP SCH (08:22)
--- NOTE | 2017-06-26 09:40 | PN ---
Date/Time of Note Date/Time of Note LATE ENTRY DATE: 06/25/17 Assessment/Plan VTE Prophylaxis VTE Prophylaxis Intervention: SCD's Lines/Catheters IV [facility]from [facility] PICC Line Urinary Cath still in place: No Assessment/Plan Chief Complaint/Hosp Course Assessment and plan 1. Status post sepsis with underlying septic shock secondary to aspiration pneumonia and urinary tract infection. Patient is status post antibiotics per ID client insights consultant. Improved at present. Will monitor. 2. Dysphagia. Continue aspiration precautions. Patient does have PEG tube in place that was placed on June 21, 2017. Continue to monitor. 3. Acute respiratory failure. Patient status post intubation and extubation. Will provide with bronchodilators as needed. 4. gastric ulcerations and severe antral gastritis. Continue PPI medication. Biopsy was negative for H. pylori 5. Normocytic normochromic anemia. Patient status post blood transfusion. Improved at present. Continue on PPI. 6. Atrial fibrillation with RVR. Yard Switch Operator following. Placed on amiodarone. Improved at present. 7. benign prostatic hypertrophy. Will continue on finasteride and tamsulosin.. Discussed with urologist. Will remove Lindsey catheter and see if still having retention. 8. Underlying dementia. Continue supportive care. Aspiration precautions. 8. Acute nonoliguric kidney disease. Medications to be renally dosed. Tape Transferrer is following. 9. Seizure disorder. Continue anticonvulsants Disposition and plan: Remove Lindsey catheter per urologist recommendations. We will see if able to void. And for Lindsey catheter placement in a.m. her urologist if unable to and discharged to correction facility if medically stable. Anticipate discharge within the next 24 hours Discussed plan of care with Dr. Quinteros Problems: Subjective 24 Hr Interval Summary Free Text/Dictation no s/s of distress Exam/Review of Systems Vital Signs Vitals Vital Signs Date Time Temp Pulse Resp B/P Pulse Ox O2 Delivery O2 Flow Rate FiO2 06/26/17 09:04 5.0 06/26/17 09:04 72 18 95 Nasal Cannula 06/26/17 07:54 97.9 122/57 Intake and Output 06/25/17 06/25/17 06/26/17 15:00 23:00 07:00 Intake Total 640 ml Output Total 400 ml Balance 240 ml Exam Constitutional: alert, other Head: normocephalic (Noted with underlying dementia) Respiratory: clear to auscultation, normal air movement Cardiovascular: other (Regular rate) Gastrointestinal: non-tender, other (G-tube in place), soft Musculoskeletal: No nl gait and stance Extremities: normal pulses Neurological: other (With underlying dementia) Results Result Diagram: 06/24/1790406/24/17904 Medications Medications Current Medications Ascorbic Acid (Vitamin C) 500 mg DAILY PO Last administered on 06/26/17 08:21 ; Admin Dose 500 MG; Start 06/13/17 at 09:00 Atorvastatin Calcium (Lipitor) 20 mg QHS PO Last administered on 06/25/17 21: 08; Admin Dose 20 MG; Start 06/12/17 at 21:00 Finasteride (Proscar) 5 mg DAILY PO Last administered on 06/26/17 08:21; Admin Dose 5 MG; Start 06/13/17 at 09:00 Gabapentin (Neurontin) 300 mg TID PO Last administered on 06/26/17 08:21; Admin Dose 300 MG; Start 06/12/17 at 13:00 Saccharomyces Boulardii (Florastor) 250 mg BID PO Last administered on 08:20; Admin Dose 250 MG; Start 06/12/17 at 21:00 Tamsulosin HCl (Flomax) 0.8 mg HS PO Last administered on 06/25/17 21:09; Admin Dose 0.8 MG; Start 06/12/17 at 21:00 Ondansetron HCl (Zofran Inj) 4 mg Q6H PRN IV NAUSEA AND/OR VOMITING; Start at 12:30 Acetaminophen (Tylenol Tab) 650 mg Q6H PRN PO PAIN LEVEL 1-3 OR FEVER; Start at 12:30 Acetaminophen (Tylenol Supp) 650 mg Q6H PRN [place] PAIN LEVEL 1-3 OR FEVER; Start 06/12/17 at 12:30 Acetaminophen/ Hydrocodone Bitart ([place] (5/325)) 1 tab Q6H PRN PO MODERATE PAIN LEVEL 4-6 Last administered on 06/13/17 08:36; Admin Dose 1 TAB; Start at 12:30 Acetaminophen/ Hydrocodone Bitart ([place] (5/325)) 2 tab Q6H PRN PO SEVERE PAIN LEVEL 7-10; Start 06/12/17 at 12:30 Morphine Sulfate (morphine) 2 mg Q4H PRN IV SEVERE PAIN LEVEL 7-10; Start 06/12 at 12:30 Docusate Sodium (Colace) 100 mg Q12H PRN PO CONSTIPATION; Start 06/12/17 at 12: 30 Magnesium Hydroxide (Milk Of Mag) 30 ml DAILY PRN PO CONSTIPATION; Start at 12:30 Bisacodyl (Dulcolax Supp) 10 mg DAILY PRN [place] CONSTIPATION; Start 06/12/17 at 12 :30 Morphine Sulfate (morphine) 2 mg Q2 PRN IV PAIN LEVEL 4-7 Last administered on 06/13/17 05:15; Admin Dose 2 MG; Start 06/12/17 at 14:30 IV Flush (NS 10 ml) 10 ml PRN PRN IV IV PROTOCOL; Start 06/13/17 at 14:00 Ferrous Sulfate (Feosol Liquid Cup) 300 mg DAILY NGT Last administered on 06/26 08:21; Admin Dose 300 MG; Start 06/14/17 at 10:00 Mupirocin (Bactroban) 1 applic BID TOP Last administered on 06/26/17 08:22; Admin Dose 1 APPLIC; Start 06/14/17 at 21:00 Valproate Sodium (Depakene Liquid Cup) 500 mg DAILY NGT Last administered on 08:21; Admin Dose 500 MG; Start 06/14/17 at 16:00 Multivitamins (Multivitamin) 30 ml DAILY NGT Last administered on 06/26/17 08 :21; Admin Dose 30 ML; Start 06/15/17 at 09:30 Amiodarone HCl (Cordarone) 200 mg TID PO Last administered on 06/26/17 08:22 ; Admin Dose 200 MG; Start 06/21/17 at 09:00 Lansoprazole (Prevacid) 30 mg BID@,18 NGT Last administered on 06/26/17 05: 34; Admin Dose 30 MG; Start 06/23/17 at 18:00 LETI LOPEZ Jun 26, 2017 09:40
[2017-06-26 11:11] LABS: BASOPHIL # 0.1 10^3/ul (0.0-0.1); BASOPHILS % 0.9 % (0.0-2.0); EOSINOPHILS # 0.2 10^3/ul (0.0-0.5); EOSINOPHILS % 3.2 % (0.0-7.0); HEMATOCRIT 32.1 % (42.0-52.0); HEMOGLOBIN 10.4 g/dl (14.0-18.0); LYMPHOCYTES # 1.7 10^3/ul (0.8-2.9); LYMPHOCYTES % 25.4 % (15.0-51.0); MEAN CORPUSCULAR HEMOGLOBIN 30.6 pg (29.0-33.0); MEAN CORPUSCULAR HGB CONC 32.4 g/dl (32.0-37.0); MEAN CORPUSCULAR VOLUME 94.4 fl (82.0-101.0); MEAN PLATELET VOLUME 12.4 fl (7.4-10.4); MONOCYTE # 0.9 10^3/ul (0.3-0.9); MONOCYTES % 13.3 % (0.0-11.0); NEUTROPHIL # 3.9 10^3/ul (1.6-7.5); NEUTROPHILS % 56.9 % (39.0-77.0); PLATELET COUNT 382 10^3/UL (140-415); RED CELL DISTRIBUTION WIDTH 15.9 % (11.5-14.5); WHITE BLOOD COUNT 6.8 10^3/ul (4.8-10.8)
[2017-06-26 11:29] LABS: CALCIUM 8.5 mg/dl (8.4-10.2); CREATININE 1.01 mg/dl (0.61-1.24); POTASSIUM 4.3 mmol/L (3.5-5.1)
--- NOTE | 2017-06-26 12:40 | CONS ---
Date/Time of Note Date/Time of Note DATE: 06/26/17 TIME: 12:37 Assessment/Plan Assessment/Plan Additional Assessment/Plan Assessment and recommendations; 1. Patient admitted with pneumonia with significant clinical and radiological improvement. Off antibiotics now. 2. Dementia. 3. History of chronic atrial fibrillation, BPH, anemia and neuropathy. 4. Chronic dysphagia. Status post G-tube placement in the past. Continue current supportive care. Consider discharge. Consultation Date/Type/Reason Admit Date/Time Jun 12, 2017 at 11:47 Initial Consult Date 06/13/17 Type of Consultation: Pulmonary/critical care Referring Provider: LETI LOPEZ 24 HR Interval Summary Free Text/Dictation Patient condition is stable. Appears confused. General exam; elderly male, awake, currently in no distress. Appears occasionally agitated. Exam/Review of Systems Vital Signs Vitals Vital Signs Date Time Temp Pulse Resp B/P Pulse Ox O2 Delivery O2 Flow Rate FiO2 06/26/17 12:07 98.4 75 20 111/59 96 06/26/17 09:04 5.0 06/26/17 09:04 Nasal Cannula Intake and Output 06/25/17 06/25/17 06/26/17 15:00 23:00 07:00 Intake Total 640 ml Output Total 400 ml Balance 240 ml Exam HEENT exam; supple neck, no JVD. No lymphadenopathy. Midline trachea. No thyromegaly. Chest exam; diminished breath sounds bilaterally. S1-S2 audible, no murmurs. Regular rhythm. Abdomen exam; soft, no organomegaly. G-tube in place. Bowel sounds audible. Extremity exam; no edema. 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 Results Result Diagram: 06/26/17 1048 06/26/17 1046 Results 24 hrs Laboratory Tests Test 06/26/17 10:46 06/26/17 10:48 Sodium Level 138 Potassium Level 4.3 Chloride Level 104 Carbon Dioxide Level 28 Anion Gap 10 Blood Urea Nitrogen 22 H Creatinine 1.01 Glucose Level 121 Calcium Level 8.5 White Blood Count 6.8 # Red Blood Count 3.40 L Hemoglobin 10.4 L Hematocrit 32.1 L Mean Corpuscular Volume 94.4 Mean Corpuscular Hemoglobin 30.6 Mean Corpuscular Hemoglobin Concent 32.4 Red Cell Distribution Width 15.9 H Platelet Count 382 Mean Platelet Volume 12.4 H Neutrophils % 56.9 Lymphocytes % 25.4 Monocytes % 13.3 H Eosinophils % 3.2 Basophils % 0.9 Nucleated Red Blood Cells % 0.0 Neutrophils # 3.9 Lymphocytes # 1.7 Monocytes # 0.9 Eosinophils # 0.2 Basophils # 0.1 Nucleated Red Blood Cells # 0.0 Medications Medications Current Medications Ascorbic Acid (Vitamin C) 500 mg DAILY PO Last administered on 06/26/17 08:21 ; Admin Dose 500 MG; Start 06/13/17 at 09:00 Atorvastatin Calcium (Lipitor) 20 mg QHS PO Last administered on 06/25/17 21: 08; Admin Dose 20 MG; Start 06/12/17 at 21:00 Finasteride (Proscar) 5 mg DAILY PO Last administered on 06/26/17 08:21; Admin Dose 5 MG; Start 06/13/17 at 09:00 Gabapentin (Neurontin) 300 mg TID PO Last administered on 06/26/17 12:32; Admin Dose 300 MG; Start 06/12/17 at 13:00 Saccharomyces Boulardii (Florastor) 250 mg BID PO Last administered on 08:20; Admin Dose 250 MG; Start 06/12/17 at 21:00 Tamsulosin HCl (Flomax) 0.8 mg HS PO Last administered on 06/25/17 21:09; Admin Dose 0.8 MG; Start 06/12/17 at 21:00 Ondansetron HCl (Zofran Inj) 4 mg Q6H PRN IV NAUSEA AND/OR VOMITING; Start at 12:30 Acetaminophen (Tylenol Tab) 650 mg Q6H PRN PO PAIN LEVEL 1-3 OR FEVER; Start at 12:30 Acetaminophen (Tylenol Supp) 650 mg Q6H PRN [place] PAIN LEVEL 1-3 OR FEVER; Start 06/12/17 at 12:30 Acetaminophen/ Hydrocodone Bitart ([place] (5/325)) 1 tab Q6H PRN PO MODERATE PAIN LEVEL 4-6 Last administered on 06/13/17 08:36; Admin Dose 1 TAB; Start at 12:30 Acetaminophen/ Hydrocodone Bitart ([place] (5/325)) 2 tab Q6H PRN PO SEVERE PAIN LEVEL 7-10; Start 06/12/17 at 12:30 Morphine Sulfate (morphine) 2 mg Q4H PRN IV SEVERE PAIN LEVEL 7-10; Start 06/12 at 12:30 Docusate Sodium (Colace) 100 mg Q12H PRN PO CONSTIPATION; Start 06/12/17 at 12: 30 Magnesium Hydroxide (Milk Of Mag) 30 ml DAILY PRN PO CONSTIPATION; Start at 12:30 Bisacodyl (Dulcolax Supp) 10 mg DAILY PRN [place] CONSTIPATION; Start 06/12/17 at 12 :30 Morphine Sulfate (morphine) 2 mg Q2 PRN IV PAIN LEVEL 4-7 Last administered on 06/13/17 05:15; Admin Dose 2 MG; Start 06/12/17 at 14:30 IV Flush (NS 10 ml) 10 ml PRN PRN IV IV PROTOCOL; Start 06/13/17 at 14:00 Ferrous Sulfate (Feosol Liquid Cup) 300 mg DAILY NGT Last administered on 06/26 08:21; Admin Dose 300 MG; Start 06/14/17 at 10:00 Mupirocin (Bactroban) 1 applic BID TOP Last administered on 06/26/17 08:22; Admin Dose 1 APPLIC; Start 06/14/17 at 21:00 Valproate Sodium (Depakene Liquid Cup) 500 mg DAILY NGT Last administered on 08:21; Admin Dose 500 MG; Start 06/14/17 at 16:00 Multivitamins (Multivitamin) 30 ml DAILY NGT Last administered on 06/26/17 08 :21; Admin Dose 30 ML; Start 06/15/17 at 09:30 Amiodarone HCl (Cordarone) 200 mg TID PO Last administered on 06/26/17 12:32 ; Admin Dose 200 MG; Start 06/21/17 at 09:00 Lansoprazole (Prevacid) 30 mg BID@06,18 NGT Last administered on 06/26/17 05: 34; Admin Dose 30 MG; Start 06/23/17 at 18:00 LIZ GRACIA Jun 26, 2017 12:39
--- NOTE | 2017-06-26 15:51 | PN ---
Date/Time of Note Date/Time of Note DATE: 06/26/17 TIME: 15:50 Assessment/Plan VTE Prophylaxis VTE Prophylaxis Intervention: SCD's Lines/Catheters IV [facility] PICC Line Urinary Cath still in place: No Assessment/Plan Chief Complaint/Hosp Course Assessment and plan 1. Status post sepsis with underlying septic shock secondary to aspiration pneumonia and urinary tract infection. Patient is status post antibiotics per ID product marketing consultant. Improved at present. Will monitor. 2. Dysphagia. Continue aspiration precautions. Patient does have PEG tube in place that was placed on June 21, 2017. Continue to monitor. 3. Acute respiratory failure. Patient status post intubation and extubation. Will provide with bronchodilators as needed. 4. gastric ulcerations and severe antral gastritis. Continue PPI medication. Biopsy was negative for H. pylori 5. Normocytic normochromic anemia. Patient status post blood transfusion. Improved at present. Continue on PPI. 6. Atrial fibrillation with RVR. Bolt Man following. Placed on amiodarone. Improved at present. 7. benign prostatic hypertrophy. Will continue on finasteride and tamsulosin.. Discussed with urologist. Will remove Lindsey catheter and see if still having retention. 8. Underlying dementia. Continue supportive care. Aspiration precautions. 8. Acute nonoliguric kidney disease. Medications to be renally dosed. Web Developer Programmer is following. 9. Seizure disorder. Continue anticonvulsants Disposition and plan: Lindsey catheter was removed. Still noted with retention. Awaiting urologist placement of Lindsey catheter prior to DC. Anticipate discharge within the next 24 hours. Discussed plan of care with Dr. Quinteros Problems: Subjective 24 Hr Interval Summary Free Text/Dictation Confused today. Exam/Review of Systems Vital Signs Vitals Vital Signs Date Time Temp Pulse Resp B/P Pulse Ox O2 Delivery O2 Flow Rate FiO2 06/26/17 14:00 98.4 84 20 105/67 95 06/26/17 13:21 Nasal Cannula 5.0 Intake and Output 06/25/17 06/25/17 06/26/17 15:00 23:00 07:00 Intake Total 640 ml Output Total 400 ml Balance 240 ml Exam Constitutional: alert, other confused Head: normocephalic (Noted with underlying dementia) Respiratory: clear to auscultation, normal air movement Cardiovascular: other (Regular rate) Gastrointestinal: non-tender, other (G-tube in place), soft Musculoskeletal: No nl gait and stance Extremities: normal pulses Neurological: other (With underlying dementia) Results Result Diagram: 06/26/17 1048 06/26/17 1046 Results 24 hrs Laboratory Tests Test 06/26/17 10:46 06/26/17 10:48 Sodium Level 138 Potassium Level 4.3 Chloride Level 104 Carbon Dioxide Level 28 Anion Gap 10 Blood Urea Nitrogen 22 H Creatinine 1.01 Glucose Level 121 Calcium Level 8.5 White Blood Count 6.8 # Red Blood Count 3.40 L Hemoglobin 10.4 L Hematocrit 32.1 L Mean Corpuscular Volume 94.4 Mean Corpuscular Hemoglobin 30.6 Mean Corpuscular Hemoglobin Concent 32.4 Red Cell Distribution Width 15.9 H Platelet Count 382 Mean Platelet Volume 12.4 H Neutrophils % 56.9 Lymphocytes % 25.4 Monocytes % 13.3 H Eosinophils % 3.2 Basophils % 0.9 Nucleated Red Blood Cells % 0.0 Neutrophils # 3.9 Lymphocytes # 1.7 Monocytes # 0.9 Eosinophils # 0.2 Basophils # 0.1 Nucleated Red Blood Cells # 0.0 Medications Medications Current Medications Ascorbic Acid (Vitamin C) 500 mg DAILY PO Last administered on 06/26/17 08:21 ; Admin Dose 500 MG; Start 06/13/17 at 09:00 Atorvastatin Calcium (Lipitor) 20 mg QHS PO Last administered on 06/25/17 21: 08; Admin Dose 20 MG; Start 06/12/17 at 21:00 Finasteride (Proscar) 5 mg DAILY PO Last administered on 06/26/17 08:21; Admin Dose 5 MG; Start 06/13/17 at 09:00 Gabapentin (Neurontin) 300 mg TID PO Last administered on 06/26/17 12:32; Admin Dose 300 MG; Start 06/12/17 at 13:00 Saccharomyces Boulardii (Florastor) 250 mg BID PO Last administered on 08:20; Admin Dose 250 MG; Start 06/12/17 at 21:00 Tamsulosin HCl (Flomax) 0.8 mg HS PO Last administered on 06/25/17 21:09; Admin Dose 0.8 MG; Start 06/12/17 at 21:00 Ondansetron HCl (Zofran Inj) 4 mg Q6H PRN IV NAUSEA AND/OR VOMITING; Start at 12:30 Acetaminophen (Tylenol Tab) 650 mg Q6H PRN PO PAIN LEVEL 1-3 OR FEVER; Start at 12:30 Acetaminophen (Tylenol Supp) 650 mg Q6H PRN [place] PAIN LEVEL 1-3 OR FEVER; Start 06/12/17 at 12:30 Acetaminophen/ Hydrocodone Bitart ([place] (5/325)) 1 tab Q6H PRN PO MODERATE PAIN LEVEL 4-6 Last administered on 06/13/17 08:36; Admin Dose 1 TAB; Start at 12:30 Acetaminophen/ Hydrocodone Bitart ([place] (5/325)) 2 tab Q6H PRN PO SEVERE PAIN LEVEL 7-10; Start 06/12/17 at 12:30 Morphine Sulfate (morphine) 2 mg Q4H PRN IV SEVERE PAIN LEVEL 7-10; Start 06/12 at 12:30 Docusate Sodium (Colace) 100 mg Q12H PRN PO CONSTIPATION; Start 06/12/17 at 12: 30 Magnesium Hydroxide (Milk Of Mag) 30 ml DAILY PRN PO CONSTIPATION; Start at 12:30 Bisacodyl (Dulcolax Supp) 10 mg DAILY PRN [place] CONSTIPATION; Start 06/12/17 at 12 :30 Morphine Sulfate (morphine) 2 mg Q2 PRN IV PAIN LEVEL 4-7 Last administered on 06/13/17 05:15; Admin Dose 2 MG; Start 06/12/17 at 14:30 IV Flush (NS 10 ml) 10 ml PRN PRN IV IV PROTOCOL; Start 06/13/17 at 14:00 Ferrous Sulfate (Feosol Liquid Cup) 300 mg DAILY NGT Last administered on 06/26 08:21; Admin Dose 300 MG; Start 06/14/17 at 10:00 Mupirocin (Bactroban) 1 applic BID TOP Last administered on 06/26/17 08:22; Admin Dose 1 APPLIC; Start 06/14/17 at 21:00 Valproate Sodium (Depakene Liquid Cup) 500 mg DAILY NGT Last administered on 08:21; Admin Dose 500 MG; Start 06/14/17 at 16:00 Multivitamins (Multivitamin) 30 ml DAILY NGT Last administered on 06/26/17 08 :21; Admin Dose 30 ML; Start 06/15/17 at 09:30 Amiodarone HCl (Cordarone) 200 mg TID PO Last administered on 06/26/17 12:32 ; Admin Dose 200 MG; Start 06/21/17 at 09:00 Lansoprazole (Prevacid) 30 mg BID@06,18 NGT Last administered on 06/26/17 05: 34; Admin Dose 30 MG; Start 06/23/17 at 18:00 LETI LOPEZ Jun 26, 2017 15:51
--- NOTE | 2017-06-27 08:28 | PN ---
DATE: 06/26/2017 SUBJECTIVE: The patient has urinary retention and severe urethral stricture that was dilated when luis bowen was in the intensive care unit. The Lindsey catheter was removed yesterday afternoon and yet the pa tiecee has not voided and his bladder scan has been showing a large amount of urine. OBJECTIVE FINDINGS: VITAL SIGNS: Temperature is 97.6, pulse is 69, respirations 20, blood pressure 105/62. GENERAL: The patient is restless, and he is restrained because he tries to get out of the bed. ABDOMEN: Shows a distended urinary bladder. External genitalia are normal. EXTREMITIES: Reveal no edema. LABORATORY DATA: CBC shows a white count of 6.8, hemoglobin 10.4, hematocrit 32.1. BUN is 22, crea tinine 1.01. Electrolytes are normal. PLAN: I did go ahead and prep his genital area and draped in a sterile manner. Then, he urinated w hile I am watching him and he did have a reasonably good stream; however, I decided to go ahead and put the catheter to find out the residual urine. After prepping the penis with Betadine and injecti ng 2% lidocaine gel, I inserted a 14-Persian coude catheter, it met some resistance on the end toward the distal urethra, but I was able to advance the catheter all the way to the bladder. Then I aspi rated out of the bladder about 520 mL of clear urine. Therefore, because of the high postvoid resid ual, the Lindsey catheter was left in and it appears that the plan is to send the patient back to [facility] home with the Lindsey catheter. Dictated By: BALAJI MOROCHO/HASMUKH Conf#: [id number] DID#: [id number]
== END 2017-06-26 20:15 | DRG 870 ==
LOC: E/R 09:39 → ICU 11:47 → MS4 06-17 23:13
PROVIDERS: ADMIT Hospitalist; ATTEND Hospitalist
PROC: 5A1955Z Respiratory Ventilation, Greater than 96 Consecutive Hours (ICD-10-PCS; 2017-06-12)
PROC: 0T7D7ZZ Dilation of Urethra, Via Natural or Artificial Opening (ICD-10-PCS; 2017-06-12)
PROC: 0T9B70Z Drainage of Bladder with Drainage Device, Via Natural or Artificial Opening (ICD-10-PCS; 2017-06-12)
PROC: 0BH17EZ Insertion of Endotracheal Airway into Trachea, Via Natural or Artificial Opening (ICD-10-PCS; 2017-06-12)
PROC: 02HV33Z Insertion of Infusion Device into Superior Vena Cava, Percutaneous Approach (ICD-10-PCS; principal; 2017-06-13)
PROC: 30233N1 Transfusion of Nonautologous Red Blood Cells into Peripheral Vein, Percutaneous Approach (ICD-10-PCS; 2017-06-13)
PROC: 0DH63UZ Insertion of Feeding Device into Stomach, Percutaneous Approach (ICD-10-PCS; 2017-06-19)
PROC: 0T9B70Z Drainage of Bladder with Drainage Device, Via Natural or Artificial Opening (ICD-10-PCS; 2017-06-26)
DX: A41.9 Sepsis, unspecified organism (principal); J69.0 Pneumonitis due to inhalation of food and vomit; J96.01 Acute respiratory failure with hypoxia; R65.21 Severe sepsis with septic shock; N17.9 Acute kidney failure, unspecified; I48.0 Paroxysmal atrial fibrillation; G62.9 Polyneuropathy, unspecified; R13.10 Dysphagia, unspecified; N39.0 Urinary tract infection, site not specified; K25.9 Gastric ulcer, unspecified as acute or chronic, without hemorrhage or perforation; J44.9 Chronic obstructive pulmonary disease, unspecified; G40.909 Epilepsy, unspecified, not intractable, without status epilepticus; G30.9 Alzheimer's disease, unspecified; F02.80 Dementia in other diseases classified elsewhere, unspecified severity, without behavioral disturbance, psychotic disturbance, mood disturbance, and anxiety; D64.9 Anemia, unspecified; K29.70 Gastritis, unspecified, without bleeding; N40.1 Benign prostatic hyperplasia with lower urinary tract symptoms; R33.8 Other retention of urine; N35.9 Urethral stricture, unspecified; B96.4 Proteus (mirabilis) (morganii) as the cause of diseases classified elsewhere; K20.9 Esophagitis, unspecified; Z22.322 Carrier or suspected carrier of Methicillin resistant Staphylococcus aureus
CPT/HCPCS: 31500; 36430; 36569; 36600; 71010; 76775; 76937; 80048; 80053; 80061; 80162; 80202; 81001; 82150; 82728; 82803; 83036; 83540; 83605; 83690; 83735; 83880; 84100; 84155; 84300; 84436; 84443; 84479; 84484; 85014; 85018; 85025; 85610; 85730; 86850; 86900; 86901; 86920; 87040; 87070; 87081; 87086; 88305; 88312; 92526; 92610; 93005; 93306; 94002; 94003; 94640; 94664; 94770; 96374; 96375; J1940; C9113; J0282; J0690; J1956; J2060; J2185; J2270; J3370; J3480; J7030; J7040; J7060; J7999; P9016

== ENCOUNTER 2017-08-30 08:51 | Inpatient (IN) | payer MEDICARE, OTHER ==
[2017-08-30] VITALS (11 sets, daily range): BP systolic 94–125; BP diastolic 52–66; PULSE 84–97; RESP 12–24; TEMP 96.7; Ht 180.3 cm; Wt 72.1 kg
[~2017-08-30] VITALS: Ht 180.3 cm; Wt 72.1 kg
[~2017-08-30 08:51] MED LIST changes: +ACET325T33 PO; +ASCO500C7 PO; +ATOR20TA38 PO; +CRAN400C PO; +DIGO125T6 PO; +DIVA-16 PO; +DOCU-159 PO; +ERGO2000 PO; -ETOMIDATE 20 MG INJ ONE; +FER325 PO; +FINA5TAB4 PO; +FLUT16SP17 NASAL; +GABA300C16 PO; +IPRA3AMP INHALATION; +MAGN400O4 PO; +METO-429 PO; +MULTI PO; -PROPOFOL 200 MG INJ ONE; +RISP1TAB3 PO; +SACC250C PO; -SUCCINYLCHOLINE CHLORIDE 100 MG/5 ML SYG IV ONE; +TAMS-14 PO
--- NOTE | 2017-08-30 08:55 | ERD ---
ER Documentation Chief Complaint Chief Complaint HPI 72-year-old male with history of atrial fibrillation, seizure disorder, dementia , BPH, sepsis, pneumonia, COPD, respiratory failure and urinary tract infection [facility] for evaluation of fever and shortness of breath. Most recently admitted at [facility] 07/02/2017 for sepsis, shock and respiratory failure. Patient is unable to provide any history due to his cognitive impairment. ROS Unobtainable except as per history of present illness due to the patient's clinical condition Medications Home Meds Reported Medications Saccharomyces Boulardii* (Florastor*) 250 Mg Cap, 250 MG PO BID, CAP 06/12/17 Tamsulosin Hcl* (Flomax*) 0.4 Mg Cap.er.24h, 0.8 MG PO HS, CAP 06/12/17 Finasteride* (Finasteride*) 5 Mg Tablet, 5 MG PO DAILY, TAB 06/12/17 Docusate Sodium* (Docusate Sodium*) 100 Mg Capsule, 100 MG PO BID, #60 CAP 06/12/17 Cranberry (Cranberry) 400 Mg Capsule, 400 MG PO DAILY, CAP 06/12/17 Atorvastatin Calcium* (Atorvastatin Calcium*) 20 Mg Tablet, 20 MG PO QHS, #30 TAB 06/12/17 Metoprolol Tartrate* (Lopressor*) 50 Mg Tab, 50 MG PO BID, #60 TAB 06/12/17 Digoxin* (Lanoxin*) 0.125 Mg Tablet, 0.125 MG PO DAILY, TAB 06/12/17 Divalproex Sodium* (Divalproex Sodium*) 500 Mg Tablet.dr, 500 MG PO DAILY, #120 TAB 06/12/17 Ascorbic Acid* (Vitamin C*) 500 Mg Capsule.sa, 500 MG PO DAILY, CAP 06/12/17 Risperidone* (Risperidone*) 1 Mg Tablet, 1 MG PO QHS, TAB 06/12/17 Multivitamins* (Theragran*) 1 Tab Tab, 1 TAB PO DAILY, TAB 06/12/17 Gabapentin* (Gabapentin*) 300 Mg Capsule, 300 MG PO TID, #90 CAP 06/12/17 Fluticasone Propionate* (Fluticasone Propionate* Nasal) 50 Mcg/[place] - 16 Gm [place].susp, 1 SPRAY NASAL DAILY, #1 BOTTLE TO EACH NOSTRIL 06/12/17 Acetaminophen* (Tylenol*) 325 Mg Tablet, 650 MG PO Q4H Y for MILD PAIN LEVEL 1-3 , TAB 06/12/17 Magnesium Hydroxide* (Milk Of Magnesia*) 400 Mg/5 Ml Oral.susp, 30 ML PO QHS Y for CONSTIPATION, ML 06/12/17 Ipratropium-Albuterol (Ipratropium-Albuterol) 0.5-3 Mg/3 Ml Ampul.neb, 3 ML INHALATION Q2H Y for CONSTIPATION, #30 VIAL 06/12/17 Ferrous Sulfate* (Ferrous Sulfate*) 325 Mg Tabec, 325 MG PO DAILY, TAB 06/12/17 Ergocalciferol (Vitamin D2) (VITAMIN D2) 2,000 Unit Tablet, 2000 UNIT PO WEEKLY , TAB 06/12/17 Allergies Allergies: Coded Allergies: Penicillins (Verified Allergy, Unknown, 06/12/17) neomycin (Verified Allergy, Unknown, 06/12/17) PMhx/Soc Reviewed in chart. As per HPI. SNF resident History of Surgery: No Anesthesia Reaction: No Hx Neurological Disorder: Yes Hx Respiratory Disorders: Yes Hx Cardiac Disorders: Yes Hx Psychiatric Problems: No Hx Miscellaneous Medical Probl: Yes (BPH) Hx Alcohol Use: No Hx Substance Use: No Hx Tobacco Use: No FmHx Obtainable due to the patient's clinical condition Physical Exam Vitals Vital Signs Date Time Temp Pulse Resp B/P Pulse Ox O2 Delivery O2 Flow Rate FiO2 08/30/17 13:40 97.9 96 18 110/67 100 Mask 8.0 08/30/17 11:22 97.6 96 20 96/53 99 Mask 8.0 08/30/17 11:22 Simple Mask 8 08/30/17 10:00 98 26 100 Simple Mask 8.0 08/30/17 09:32 106 26 94 Simple Mask 6.0 45 08/30/17 09:01 102.0 122 28 94/54 91 Physical Exam Const: Nonverbal, severe distress Head: Atraumatic Eyes: Normal Conjunctiva ENT: Normal External Ears, Nose and Mouth. MM dry. Neck: Nontender. No stridor. No JVD Resp: Diminished bilaterally with moderate expiratory wheezing and rhonchi at the bases. Cardio: Tachycardic Irregular rate and rhythm, no murmurs Abd: Soft, non tender, non distended. Normal bowel sounds. G-tube site without erythema, induration or drainage. No masses. No rebound or guarding Skin: multiple ecchymoses Back: No midline or flank tenderness Ext: No cyanosis, or edema Neur: Lethargic. Nonverbal. No facial droop. Physical exam is truncated due to the constraints imposed by the patient's clinical conditions Result Diagram: 08/30/17 0905 08/30/17 0905 Results 24 hrs Laboratory Tests Test 08/30/17 09:05 08/30/17 11:08 08/30/17 13:35 White Blood Count 16.410^3/ul Red Blood Count 2.8410^6/ul Hemoglobin 9.0g/dl Hematocrit 27.1% Mean Corpuscular Volume 95.4fl Mean Corpuscular Hemoglobin 31.7pg Mean Corpuscular Hemoglobin Concent 33.2g/dl Red Cell Distribution Width 19.2% Platelet Count 92557^3/UL Mean Platelet Volume 13.9fl Neutrophils % % Segmented Neutrophils % (Manual) 53% Band Neutrophils % (Manual) 31% Lymphocytes % % Lymphocytes % (Manual) 10% Monocytes % % Monocytes % (Manual) 6% Eosinophils % % Basophils % % Nucleated Red Blood Cells % 0.0/100WBC Neutrophils # 10^3/ul Neutrophils # (Manual) 9.510^3/ul Band Neutrophils # 5.010^3/ul Absolute Lymphocytes (Manual) 1.610^3/ul Lymphocytes # 10^3/ul Monocytes # 10^3/ul Absolute Monocytes (Manual) 0.910^3/ul Eosinophils # 10^3/ul Basophils # 10^3/ul Nucleated Red Blood Cells # 10^3/ul Platelet Estimate NORMAL Giant Platelets 3% Polychromasia 3+ Poikilocytosis 1+ Anisocytosis 1+ Prothrombin Time 16.2Sec Prothrombin Time Ratio 1.3 INR International Normalized Ratio 1.28 Activated Partial Thromboplast Time 36.0Sec Blood Gas Specimen Source Blood arterial Arterial Blood Date Drawn 08/30/2017 9:45:33 AM Arterial Blood pH (Temp corrected) 7.505 Arterial Blood pCO2 (Temp correct) 30.9mmhg Arterial Blood pO2 (Temp corrected) 67.3mmHG Arterial Blood HCO3 23.8mmol/L Arterial Blood Base Excess 1.2mmol/L Arterial Blood Oxygen Saturation 93.0mmHG Vishal Test ACCEPTAB Arterial Blood Gas Puncture Site Right Radial Arterial Blood Carboxyhemoglobin 0.3% Arterial Blood Methemoglobin 0.2% Blood Gas A-a O2 Differential 218.4mmHg Oxyhemoglobin Percent 92.5% Total Hemoglobin 10.5g/dl Blood Gas Temperature 37.0C Blood Gas Modality MASK - SIMPLE FiO2 45.0% Blood Gas Notified Whom [place] Blood Gas Notified Time 08/30/2017 9:49:38 AM Sodium Level 140mmol/L Potassium Level 4.2mmol/L Chloride Level 104mmol/L Carbon Dioxide Level 25mmol/L Anion Gap 15 Blood Urea Nitrogen 39mg/dl Creatinine 1.55mg/dl Glucose Level 122mg/dl Lactic Acid Level 1.9mmol/L 1.5mmol/L 1.8mmol/L Calcium Level 8.2mg/dl Total Bilirubin 0.5mg/dl Direct Bilirubin 0.00mg/dl Indirect Bilirubin 0.5mg/dl Aspartate Amino Transf (AST/SGOT) 18IU/L Alanine Aminotransferase (ALT/SGPT) 32IU/L Alkaline Phosphatase 69IU/L Troponin I < 0.012ng/ml Total Protein 6.3g/dl Albumin 3.0g/dl Globulin 3.30g/dl Albumin/Globulin Ratio 0.90 Digoxin Level < 0.4ng/ml Current Medications Medications (Trade) Dose Ordered Sig/Pedro Route PRN Reason Start Time Stop Time Status Last Admin Dose Admin Sodium Chloride (NS) 2,670 ml BOLUS OVER 2 HOURS STAT IV* 08/30/17 09:05 08/30/17 09:10 DC 08/30/17 09:48 Acetaminophen 650 mg 650 mg ONCE STAT NGT 08/30/17 09:05 08/30/17 09:10 DC 08/30/17 09:41 Vancomycin HCl 250 ml @ 125 mls/hr ONCE ONCE IVPB 08/30/17 09:30 08/30/17 11:29 DC 08/30/17 11:00 Levofloxacin/ Dextrose (Levaquin 750 Mg/ D5W 150 ml (Pmx)) 150 ml @ 100 mls/hr ONCE ONCE IVPB 08/30/17 09:30 08/30/17 10:59 DC 08/30/17 09:31 Albuterol (Proventil 0.5% (Neb)) 15 mg ONCE STAT INH 08/30/17 09:05 12/15/17 09:10 DC 08/30/17 09:32 Ipratropium [place] (Atrovent 0.02% (Neb)) 1 mg ONCE STAT INH 08/30/17 09:05 08/30/17 09:10 DC 08/30/17 09:32 Lidocaine (Xylocaine 1% (Mpf)) 5 ml ONCE ONCE SC 08/30/17 10:30 08/30/17 10:31 DC IV Flush 10 ml 10 ml PRN PRN IV IV PROTOCOL 08/30/17 13:30 Sodium Chloride (NS) 100 ml @ STK-MED ONCE .ROUTE 08/30/17 13:31 08/30/17 13:32 DC Vancomycin HCl (Vanco Iv Per Pharmacy) VANCOMYCIN PER PHARMACY PER PROTOCOL XX 08/30/17 14:00 LABS: Leukocytosis, anemia, elevated BUN/creatinine. ABG: respiratory alkalosis. Adequate oxygenation with supplemental oxygen. EKG: TIME: 09:30. Sinus tachycardia. Ventricular rate 111. Normal [place] and QRS. No acute ST segment elevation or depression. EP Interpretation: Abnormal EKG. IMAGING: PROCEDURE: Chest x-ray CLINICAL INDICATION: Shortness of breath TECHNIQUE: Chest single view COMPARISON: 06/20/2017 FINDINGS: The heart is normal in size. The pulmonary vessels are normal in caliber. Stable atherosclerotic aortic calcification. New patchy infiltrates are noted in both lower lobes right greater than left suspicious for pneumonia. Given the lower lobe distribution, this may represent aspiration pneumonia. The costophrenic angles are sharp. Bony thorax is unremarkable. IMPRESSION: 1. New patchy infiltrates in both lower lobes right greater than left suspicious for aspiration pneumonia. 2. Atherosclerotic aortic calcification RPTAT: HH .Maximo Raygoza MD, Date Time Electronically viewed and signed by .Maximo Raygoza MD, on 08/30/2017 09:28 .W/ [ ] Procedures/MDM DOCUMENTS REVIEWED: ED nurse, prior ED, prior records including recent admission 07/02 for sepsis and respiratory failure MEDICAL DECISION MAKIN-year-old male with history of atrial fibrillation, seizure disorder, dementia, BPH, sepsis, pneumonia, COPD, respiratory failure and urinary tract infection [facility] for evaluation of fever, shortness of breath and ALOC. Chest x-ray consistent with pneumonia likely due to aspiration. Hypoxia and bronchospasm improved with nebulized beta agonists. Multiple attempts at catheterization are unsuccessful due to urethral obstruction and Urology, Dr Colt nichols. Patient's infectious symptoms have not stabilized and the patient is at risk of rapid decompensation. The patient will be admitted to the ICU for careful hydration, antibiotic therapy, and infectious source control. Severe Sepsis criteria: Infectious source: Pneumonia End organ damage indicated by: Hypotension (SBP < 90 or >40 mmHG drop or MAP < 65) Acute Resp Failure (sat < 92% w/o oxygen) Sepsis Management: Time of recognition of severe sepsis/septic shock: 09:05 Within 3 hours of recognition: Blood cultures x 2 before broad-spectrum antibiotics: Yes 30 ml/kg NS bolus Completed Initial lactate 1.9 Repeat lactate 1.5 Septic Shock Assessment: Any lactic acid > 4.0 No Persistent hypotension (SBP < 90 or 40 mmHg drop, MAP < 65) despite 30 mL/kg IV fluid bolus No Accepting Care Team Current data and ongoing care discussed. Time: 11:29 Admitting Physician: Monty Ornamental Iron Worker(s): Outstanding Data: urinalysis and c/s Critical Care Time: 40 minutes Treatments/Evaluations: Close monitoring and treatment of unstable vital signs, cardiorespiratory, and neurologic status, while maintaining tight balance of fluid, respiratory, and cardiac interventions. This includes the administration of emergency fluid management while maintaining close respiratory support as well as the provision of immediate and broad-spectrum antibiotic therapy, while performing a simultaneous assessment for possible sources in order to direct targeted therapy. This time includes discussing the case with the patient and the patient's family. This time also includes the consideration for invasive and chemical support to prevent cardiopulmonary collapse. This time does not include all procedures stated elsewhere in this record. This time also includes reviewing old records, labs and radiological studies. This time includes examining and re-examining the patient. Additionally, this time also includes arranging care with admitting and consulting physicians. Departure Diagnosis: Primary Impression: Severe sepsis Additional Impressions: Pneumonia Pneumonia type: aspiration pneumonia Aspiration pneumonia type: unspecified Laterality: bilateral Lung location: lower lobe of lung Qualified Code: J69.0 - Aspiration pneumonia of both lower lobes, unspecified aspiration pneumonia type Respiratory failure Chronicity: acute Respiratory failure complication: hypoxia Qualified Code : J96.01 - Acute respiratory failure with hypoxia COPD with acute exacerbation Alzheimer's dementia Alzheimer's disease onset: unspecified onset Dementia behavioral disturbance : without behavioral disturbance Qualified Code: G30.9 - Alzheimer's dementia without behavioral disturbance, unspecified timing of dementia onset Anemia Anemia type: unspecified type Qualified Code: D64.9 - Anemia, unspecified type DEEP (acute kidney injury) SIRS (systemic inflammatory response syndrome) Condition: Critical JENNIE THOMAS MD Aug 30, 2017 08:55 Within 3 hours of recognition: Blood cultures x 2 before broad-spectrum antibiotics: []Yes 30 ml/kg NS bolus []Completed Initial lactate [] Repeat lactate []Not indicated as initial lactate < 2.0 Septic Shock Assessment: Any lactic acid > 4.0 []No Persistent hypotension (SBP < 90 or 40 mmHg drop, MAP < 65) despite 30 mL/kg IV fluid bolus []No Volume Re-assessment for Septic Shock (post 30 ml/kg bolus @ [] time): Temp [], BP [], HR [], RR[], Pox [] Heart []Regular rate & rhythm Lungs []No crackles Skin []Warm & dry Cap Refill []Less than 2 seconds Peripheral pulses []Radially present Persistent Hypotension Treatment: Comfort care []No Hypotension caused by: pt. baseline, med-induced, erroneous value, condition other than infection []No Refusal by patient/decision maker for: blood draw, IVF, Antibiotics, Pressors [* ]No Central line [] Vasopressor started []Norepinehrine I considered further perfusion assessment with CVP measurement, SCVO2, bedside ultrasound volume assessment, passive leg raise, trial of further fluid bolus and proceeded with []. Accepting Care Team Current data and ongoing care discussed. Time: [] Admitting Physician: [] Ornamental Iron Worker(s): Outstanding Data: []None Critical Care Time: [] minutes Treatments/Evaluations: Close monitoring and treatment of unstable vital signs, cardiorespiratory, and neurologic status, while maintaining tight balance of fluid, respiratory, and cardiac interventions. This includes the administration of emergency fluid management while maintaining close respiratory support as well as the provision of immediate and broad-spectrum antibiotic therapy, while performing a simultaneous assessment for possible sources in order to direct targeted therapy. This time includes discussing the case with the patient and the patient's family. This time also includes the consideration for invasive and chemical support to prevent cardiopulmonary collapse. This time does not include all procedures stated elsewhere in this record. This time also includes reviewing old records, labs and radiological studies. This time includes examining and re-examining the patient. Additionally, this time also includes arranging care with admitting and consulting physicians. Counseled [patient and family] regarding diagnosis, diagnostic results and plan for admission. CALLS/CONSULTS: Time[], [], Recommends []. PATIENT CARE TRANSITIONED: Time: []Dr. []. Departure Diagnosis: Primary Impression: Septic shock Additional Impressions: Pneumonia Pneumonia type: aspiration pneumonia Aspiration pneumonia type: unspecified Laterality: bilateral Lung location: lower lobe of lung Qualified Code: J69.0 - Aspiration pneumonia of both lower lobes, unspecified aspiration pneumonia type SIRS (systemic inflammatory response syndrome) Condition: Critical JENNIE THOMAS MD Aug 30, 2017 08:55
[2017-08-30] MEDS ORDERED: IPRATROPIUM (NEB) 0.5 MG/2.5 ML AMP INH STA (09:05)
[2017-08-30] MEDS ORDERED: ALBUTEROL 0.5% (NEB) 2.5 MG/0.5 ML AMP INH STA (09:05)
[2017-08-30] MEDS ORDERED: SODIUM CHLORIDE 0.9% 1L BAG IV* STA (09:05)
[2017-08-30] MEDS ORDERED: ACETAMINOPHEN 650MG/20.3ML CUP NGT STA (09:05)
--- NOTE | 2017-08-30 09:28 | RADRPT ---
PROCEDURE: Chest x-ray CLINICAL INDICATION: Shortness of breath TECHNIQUE: Chest single view COMPARISON: 06/20/2017 FINDINGS: The heart is normal in size. The pulmonary vessels are normal in caliber. Stable atherosclerotic a ortic calcification. New patchy infiltrates are noted in both lower lobes right greater than left dueñas spicious for pneumonia. Given the lower lobe distribution, this may represent aspiration pneumonia. The costophrenic angles are sharp. Bony thorax is unremarkable. IMPRESSION: 1. New patchy infiltrates in both lower lobes right greater than left suspicious for aspiration pne umonia. 2. Atherosclerotic aortic calcification RPTAT: HH .Maximo Raygoza MD, MD Date Time Electronically viewed and signed by .Maximo Raygoza MD, on 08/30/2017 09:28 .W/
[2017-08-30] MEDS ORDERED: VANCOMYCIN 1 GM (PMX) 250 ML IVPB ONE (09:30)
[2017-08-30] MEDS ORDERED: LEVOFLOXACIN 750MG/D5W (PMX) 150 ML IVPB ONE (09:30)
[2017-08-30 09:50] LABS: AADO2 Arterial 218.4 mmHg (7.0-24.0); Allen Test ACCEPTAB; Arterial Base Excess 1.2 mmol/L (-3.0-3); Arterial COHb 0.3 % (0.0-3.0); Arterial Fraction of Oxyhgb 92.5 % (93.0-99.0); Arterial HCO3 23.8 mmol/L (22.0-26.0); Arterial MetHb 0.2 % (0.0-1.5); Arterial Total Hemglobin 10.5 g/dl (12.0-18.0); MODE MASK - SIMPLE
[2017-08-30 10:21] LABS: ABNORMAL IP MESSAGE 1; HEMATOCRIT 27.1 % (42.0-52.0); MEAN CORPUSCULAR HEMOGLOBIN 31.7 pg (29.0-33.0); MEAN CORPUSCULAR HGB CONC 33.2 g/dl (32.0-37.0); MEAN CORPUSCULAR VOLUME 95.4 fl (82.0-101.0); MEAN PLATELET VOLUME 13.9 fl (7.4-10.4); PLATELET COUNT 220 10^3/UL (140-415); POSITIVE DIFF @See below; RED BLOOD COUNT 2.84 10^6/ul (4.70-6.10); RED CELL DISTRIBUTION WIDTH 19.2 % (11.5-14.5); WHITE BLOOD COUNT 16.4 10^3/ul (4.8-10.8)
[2017-08-30] MEDS ORDERED: LIDOCAINE 1% (MPF) 5 ML VIAL SC ONE (10:30)
[2017-08-30 10:55] LABS: ALANINE AMINOTRANSFERASE 32 IU/L (13-69); ALKALINE PHOSPHATASE 69 IU/L (42-121); ANION GAP 15 (8-16); ASPARTATE AMINO TRANSFERASE 18 IU/L (15-46); BILIRUBIN,INDIRECT 0.5 mg/dl (0-1.1); BILIRUBIN,TOTAL 0.5 mg/dl (0.2-1.3); BLOOD UREA NITROGEN 39 mg/dl (7-20); CALCIUM 8.2 mg/dl (8.4-10.2); CARBON DIOXIDE 25 mmol/L (21-31); CHLORIDE 104 mmol/L (97-110); CREATININE 1.55 mg/dl (0.61-1.24); GLUCOSE 122 mg/dl (70-220); POTASSIUM 4.2 mmol/L (3.5-5.1); SODIUM 140 mmol/L (135-144); TOTAL PROTEIN 6.3 g/dl (6.1-8.1)
[2017-08-30 10:58] LABS: INR 1.28; PROTIME 16.2 Sec (11.9-14.9); PT RATIO 1.3
[2017-08-30 11:09] LABS: ANISOCYTOSIS 1+ (0-0); GIANT THROMBO% (M) 3 % (0-0); MONOCYTES % (M) 6 % (0-11); PLATELET ESTIMATE NORMAL; POIKILOCYTOSIS 1+ (0-0); POLYCHROMASIA 3+ (0-0)
[2017-08-30 11:11] LABS: TROPONIN-I < 0.012 ng/ml (0.00-0.12)
--- NOTE | 2017-08-30 12:24 | HP ---
Date/Time of Note Date/Time of Note DATE: 08/30/17 TIME: 12:15 Assessment/Plan VTE Prophylaxis VTE Prophylaxis Intervention: heparin Assessment/Plan Assessment/Plan 72-year-old male sent from jail facility because of altered mentation managed as follows 1. Severe sepsis with impending septic shock likely secondary to aspiration pneumonia consent #2 2. Altered mentation secondary to #1 3. Bilateral lobar pneumonia secondary to aspiration likely 4. Acute kidney injury secondary to #1 5. Acute respiratory failure secondary to #3: Stable on nonrebreather mask 6. Chronic paroxysmal atrial fibrillation 7. Chronic dysphagia with history of aspiration 8. Chronic Alzheimer's dementia 9. History of GERD as well as BPH with possible urethral obstruction PLAN: * Patient is critically ill, and well he has been somewhat stabilized, will need to be admitted to the intensive care unit. * He is to be started on broad-spectrum antibiotics, davidson cultures have been obtained, we will follow-up findings. Infectious disease consult will also be obtained * We will alternate hydration with gentle diuresis to maintain his respiratory status, currently ABG just showed some hypoxia, will repeat in a few hours to ensure that patient continues to oxygenate appropriately. * For his paroxysmal atrial fibrillation, the patient has been maintained on amiodarone, and was not on anticoagulation prior to this from my understanding. We will not start anticoagulation at this time, we will use just enough for DVT prophylaxis. * Based on reports from the jail facility, his mentation is only slightly altered, will continue to monitor while in-house * Hold off on PEG tube feeds for now, CT abdomen and pelvis has been ordered to evaluate urethral obstruction, if no gastric abnormalities, consider resuming PEG feeds when patient more stable. Urology consultation has also been obtained. * Further interventions will depend on his clinical course * Prophylaxis : heparin and PPI Critical care time > HPI/ROS Admit Date/Time Admit Date/Time August 30, 2017 Hx of Present Illness 72-year-old male with a history of multiple conditions including seizure disorder brought in by ambulance with a history of fever for the last 2 days and alteration in mental status reported by EMS. Patient was said to be unresponsive to verbal commands on arrival but responsive to tactile stimuli. From review of previous records patient was last in this facility in June 2017 at which time he was managed for sepsis with septic shock for aspiration pneumonia and urinary tract infection, and also had a history of atrial fibrillation with RVR, BPH, gastric ulcerations and gastritis, COPD as well as a chronic history of dementia. On that visit he was intubated, but subsequently successfully extubated. when he arrived he was hypotensive and tachycardic but this seems to have responded to fluid therapy but is as mentioned earlier unresponsive to verbal stimuli, responds only to tactile stimuli. I called the jail [facility] where he resides, and I was told that patient even though usually nonverbal, will sometimes respond at his baseline with 1 word responses like yes or no. Patient is also said to be able to transfer from bed to wheelchair with full assistance, and spends most of his days sitting in a wheelchair. He is chronically on PEG tube feeds, and his symptoms of fever and hypoxia which is noted this morning prior to transfer to the emergency room. His primary family member and decision-maker is his , and as far as the nursing facility is aware the patient is a full code. ROS 12 point review if systems was done and pertinent findings are as noted. PMH/Family/Social Past Medical History 1. Chronic Alzheimer's dementia 2. History of atrial fibrillation 3. Chronic BPH 4. History of gastric ulcerations and gastritis 5. History of COPD 6. Recent admission for septic shock secondary to aspiration pneumonia urinary tract infection that required endotracheal intubation with subsequent successful extubation Past Surgical History Past Surgical Hx: other (unk) Family History Significant Family History: other (unk) Social History Resides in jail [facility], [facility] Smoking Status: Unknown if ever smoked Exam/Review of Systems Vital Signs Vitals VS - Last 72 Hours, by Label Date Time Temp Pulse Resp B/P Pulse Ox O2 Delivery O2 Flow Rate FiO2 08/30/17 11:22 97.6 96 20 96/53 99 Mask 8.0 08/30/17 11:22 Simple Mask 8 08/30/17 09:32 106 26 94 Simple Mask 6.0 45 08/30/17 09:01 102.0 122 28 94/54 91 Vital Signs Date Time Temp Pulse Resp B/P Pulse Ox O2 Delivery O2 Flow Rate FiO2 08/30/17 11:22 97.6 96 20 96/53 99 Mask 8.0 08/30/17 09:32 45 Exam Exam General: barely responsive, NRB mask HEENT: Normocephalic, atraumatic. Eyes: BERTHA Respiratory: Bilaterally diminished breath sounds. Use of accessory muscles of respiration. B/L coarse rales. Cardiovascular: S1, S2 heard. Abdomen: Soft, nontender, and nondistended. Bowel sounds positive in all 4 quadrants. Genitourinary: Deferred. Extremities: No cyanosis, no clubbing, no edema. Peripheral pulses palpable. Neurologic: The patient is obtunded, responsive only to tactile stimuli. Labs Result Diagram: 08/30/17 0905 08/30/17 0905 Procedures Procedures Laboratory Tests Test 08/30/17 09:05 08/30/17 11:08 White Blood Count 16.410^3/ul Red Blood Count 2.8410^6/ul Hemoglobin 9.0g/dl Hematocrit 27.1% Mean Corpuscular Volume 95.4fl Mean Corpuscular Hemoglobin 31.7pg Mean Corpuscular Hemoglobin Concent 33.2g/dl Red Cell Distribution Width 19.2% Platelet Count 87056^3/UL Mean Platelet Volume 13.9fl Neutrophils % % Segmented Neutrophils % (Manual) 53% Band Neutrophils % (Manual) 31% Lymphocytes % % Lymphocytes % (Manual) 10% Monocytes % % Monocytes % (Manual) 6% Eosinophils % % Basophils % % Nucleated Red Blood Cells % 0.0/100WBC Neutrophils # 10^3/ul Neutrophils # (Manual) 9.510^3/ul Band Neutrophils # 5.010^3/ul Absolute Lymphocytes (Manual) 1.610^3/ul Lymphocytes # 10^3/ul Monocytes # 10^3/ul Absolute Monocytes (Manual) 0.910^3/ul Eosinophils # 10^3/ul Basophils # 10^3/ul Nucleated Red Blood Cells # 10^3/ul Platelet Estimate NORMAL Giant Platelets 3% Polychromasia 3+ Poikilocytosis 1+ Anisocytosis 1+ Prothrombin Time 16.2Sec Prothrombin Time Ratio 1.3 INR International Normalized Ratio 1.28 Activated Partial Thromboplast Time 36.0Sec Blood Gas Specimen Source Blood arterial Arterial Blood Date Drawn 08/30/2017 9:45:33 AM Arterial Blood pH (Temp corrected) 7.505 Arterial Blood pCO2 (Temp correct) 30.9mmhg Arterial Blood pO2 (Temp corrected) 67.3mmHG Arterial Blood HCO3 23.8mmol/L Arterial Blood Base Excess 1.2mmol/L Arterial Blood Oxygen Saturation 93.0mmHG Vishal Test ACCEPTAB Arterial Blood Gas Puncture Site Right Radial Arterial Blood Carboxyhemoglobin 0.3% Arterial Blood Methemoglobin 0.2% Blood Gas A-a O2 Differential 218.4mmHg Oxyhemoglobin Percent 92.5% Total Hemoglobin 10.5g/dl Blood Gas Temperature 37.0C Blood Gas Modality MASK - SIMPLE FiO2 45.0% Blood Gas Notified Whom KS Blood Gas Notified Time 08/30/2017 9:49:38 AM Sodium Level 140mmol/L Potassium Level 4.2mmol/L Chloride Level 104mmol/L Carbon Dioxide Level 25mmol/L Anion Gap 15 Blood Urea Nitrogen 39mg/dl Creatinine 1.55mg/dl Glucose Level 122mg/dl Lactic Acid Level 1.9mmol/L 1.5mmol/L Calcium Level 8.2mg/dl Total Bilirubin 0.5mg/dl Direct Bilirubin 0.00mg/dl Indirect Bilirubin 0.5mg/dl Aspartate Amino Transf (AST/SGOT) 18IU/L Alanine Aminotransferase (ALT/SGPT) 32IU/L Alkaline Phosphatase 69IU/L Troponin I < 0.012ng/ml Total Protein 6.3g/dl Albumin 3.0g/dl Globulin 3.30g/dl Albumin/Globulin Ratio 0.90 Current Medications Medications (Trade) Dose Ordered Sig/Pedro Route PRN Reason Start Time Stop Time Status Last Admin Dose Admin Sodium Chloride (NS) 2,670 ml BOLUS OVER 2 HOURS STAT IV* 08/30/17 09:05 08/30/17 09:10 DC 08/30/17 09:48 2,670 ML Acetaminophen 650 mg 650 mg ONCE STAT NGT 08/30/17 09:05 08/30/17 09:10 DC 08/30/17 09:41 650 MG Vancomycin HCl 250 ml @ 125 mls/hr ONCE ONCE IVPB 08/30/17 09:30 08/30/17 11:29 DC 08/30/17 11:00 125 MLS/HR Levofloxacin/ Dextrose (Levaquin 750 Mg/ D5W 150 ml (Pmx)) 150 ml @ 100 mls/hr ONCE ONCE IVPB 08/30/17 09:30 08/30/17 10:59 DC 08/30/17 09:31 100 MLS/HR Albuterol (Proventil 0.5% (Neb)) 15 mg ONCE STAT INH 08/30/17 09:05 08/30/17 09:10 DC 08/30/17 09:32 15 MG Ipratropium Coello (Atrovent 0.02% (Neb)) 1 mg ONCE STAT INH 08/30/17 09:05 08/30/17 09:10 DC 08/30/17 09:32 1 MG Lidocaine (Xylocaine 1% (Mpf)) 5 ml ONCE ONCE SC 08/30/17 10:30 08/30/17 10:31 DC PROCEDURE: Chest x-ray CLINICAL INDICATION: Shortness of breath TECHNIQUE: Chest single view COMPARISON: 06/20/2017 FINDINGS: The heart is normal in size. The pulmonary vessels are normal in caliber. Stable atherosclerotic aortic calcification. New patchy infiltrates are noted in both lower lobes right greater than left suspicious for pneumonia. Given the lower lobe distribution, this may represent aspiration pneumonia. The costophrenic angles are sharp. Bony thorax is unremarkable. IMPRESSION: 1. New patchy infiltrates in both lower lobes right greater than left suspicious for aspiration pneumonia. 2. Atherosclerotic aortic calcification RPTAT: HH .Maximo Raygoza MD, MD Date Time Electronically viewed and signed by .Maximo Raygoza MD, on 08/30/2017 09:28 .W/ CC: JENNIE THOMAS MD, BOLATITO M. Aug 30, 2017 12:24
--- NOTE | 2017-08-30 13:15 | RADRPT ---
PROCEDURE: Chest x-ray CLINICAL INDICATION: PICC line placement TECHNIQUE: Chest single view COMPARISON: 08/30/2017 FINDINGS: There is interval placement left arm PICC line with tip at the right atrial SVC junction. Otherwise there is no interval change from the study from Earlier today IMPRESSION: Interval placement left arm PICC line with tip at the right atrial SVC junction RPTAT: HH .Maximo Raygoza MD, MD Date Time Electronically viewed and signed by .Maximo Raygoza MD, on 08/30/2017 13:14 .W/
--- NOTE | 2017-08-30 13:18 | RADRPT ---
PROCEDURE: Ultrasound, PICC. CLINICAL INDICATION: Venous access for PICC placement. TECHNIQUE: Limited sonography of the left upper extremity veins was performed in anticipation of P ICC placement. COMPARISON: None. FINDINGS: Sonographic images demonstrate a patent left upper extremity vein. The PICC line was inserted by the PICC nurse. IMPRESSION: Ultrasound guidance for needle placement in a left upper extremity vein. RPTAT: HLST .Rose Hamilton MD, MD Date Time Electronically viewed and signed by .Rose Hamilton MD, on 08/30/2017 13:17 .T/
[2017-08-30] MEDS ORDERED: SOD CHLORIDE 0.9% 100 ML ONE (13:31)
--- NOTE | 2017-08-30 13:35 | RADRPT ---
PROCEDURE: CT Brain without contrast. CLINICAL INDICATION: Altered mental status. TECHNIQUE: A CT of the brain without contrast was performed utilizing axial sections from the skul l base through the vertex. One or more the following does reduction techniques were utilized: Automa em exposure control, adjustment of the mA/ or kV according to patient's size, or use of iterative r econstruction technique. Total exam CTDIvol is 53.91 MGy and DLP is 783.24 mGy-cm. DICOM images are available. COMPARISON: None available. FINDINGS: The ventricles and sulci are mildly to moderately prominent indicative of volume loss. There is mild cerebellar volume loss. There is no intracranial hemorrhage, mass effect or midline shift. No abn ormal intra-axial or extra-axial fluid collections are seen. The coronel/white matter differentiation i s well preserved. There are mild to moderate foci of hypoattenuation in the white matter, which are nonspecific in shahida ology but likely reflect chronic small vessel ischemic changes. There are mild to moderate intracran ial vascular calcifications consistent with atherosclerosis. The visualized paranasal sinuses demon strate partial opacification of the left ethmoid air cells. The mastoid air cells are essentially cl ear. IMPRESSION: 1. No acute intracranial hemorrhage, transcortical infarction or mass effect. 2. Mild to moderate intracranial atherosclerosis and chronic small vessel ischemic changes. 3. Mild to moderate generalized cerebral and cerebellar volume loss. RPTAT: UU .Rafi Josue MD, MD Date Time Electronically viewed and signed by .Rafi Josue MD, MD on 08/30/2017 13:34 .N/
[2017-08-30] MEDS ORDERED: VANCOMYCIN IV PER PHARMACY XX SCH (14:00)
[2017-08-30] MEDS ORDERED: ACETAMINOPHEN 325 MG TAB PO PRN (14:30)
--- NOTE | 2017-08-30 15:05 | RADRPT ---
Echocardiogram Report Patient Name: RICH POPE Gender: Male Date: 1945 Study Date: 30-Aug-2017 Social Work Faculty Member: Jamila Flynn RDCS Location: [facility] Ref. Physician: JERE HAGAN Quality: Technically Difficult Study Procedures: Transthoracic echocardiogram with complete 2D, M-Mode, and doppler examination. Indications: Shock. 2D/M Mode Doppler Measurement Value Normal Ranges Measurement Value Normal Ranges LVIDd 2D 4.2 3.5 - 5.6 cm AV Peak Júnior 1.8 m/sec LVIDs 2D 2.4 2.1 - 4.1 cm AV Peak PG 12.0 mmHg FS 2D 43.7 % LVOT Peak Júnior 1.4 m/sec LVPWd 2D 0.9 0.6 - 1.1 cm LVOT Peak PG 7.0 mmHg IVSd 2D 0.8 0.6 - 1.1 cm MV E Peak Júnior 0.7 m/sec IVS/LVPW 2D 0.9 MV A Peak Júnior 0.8 m/sec AoR Diam 2D 3.2 2.0 - 3.7 cm MV E/A 0.8 LA/Ao 2D 1 0 - 1 MV Decel Time 201 msec EDV 2D 74.6 cm3 MV E/A 0.8 ESV 2D 13.3 cm3 TR Peak Júnior 2.7 m/sec LA Dimen 2D 3.7 2.3 - 4.0 cm TR Peak PG 28.0 mmHg RVSP 36.0 mmHg Findings Left Ventricle: Normal left ventricular systolic function. Normal left ventricular cavity size. Normal left ventricular wall thickness. Ejection fraction is visually estimated at 65 %. Abnormal Diastolic Function. Right Ventricle: Normal right ventricular size. Normal right ventricular systolic function. Left Atrium: The left atrium is normal in size. Right Atrium: The right atrium is normal in size. Mitral Valve: Mitral valve leaflets appear mildly thickened. Mild mitral annular calcification. Trace mitral regurgitation. Aortic Valve: No significant aortic stenosis or insufficiency. Aortic cusps appear mildly calcified. Tricuspid Valve: Normal appearance of the tricuspid valve. Estimated peak PA systolic pressure 36 mmHg. There is mild tricuspid regurgitation. Pulmonic Valve: Normal pulmonic valve appearance. Pericardium: Normal pericardium with no significant pericardial effusion. Aorta: Normal aortic root. IVC: Dilated inferior vena cava with poor inspiratory collapse consistent with elevated right atrial pressures. Conclusions 1.Normal left ventricular systolic function. Normal left ventricular cavity size. Normal left ventricular wall thickness. Ejection fraction is visually estimated at 65 %. Abnormal Diastolic Function. 2.Normal right ventricular size. Normal right ventricular systolic function. 3.The left atrium is normal in size. 4.The right atrium is normal in size. 5.Estimated peak PA systolic pressure 36 mmHg. There is mild tricuspid regurgitation. 6.No significant valvular stenosis or regurgitation seen of remaining visualized valves. 7.Normal pericardium with no significant pericardial effusion. Electronically Signed By: Rich Rader 30-Aug-2017 15:04:57 -0800 Patient Name: RICH POPE Study Date: 30-Aug-2017 [id number]
[2017-08-30] MEDS: SOD CHLORIDE 0.9% 1,000 ML IV SCH (16:08)
[2017-08-30] MEDS: DIGOXIN 0.125 MG TAB PO SCH (16:51)
[2017-08-30] MEDS: FUROSEMIDE 40 MG INJ IV SCH (16:51)
--- NOTE | 2017-08-30 17:13 | RADRPT ---
PROCEDURE: US bilateral lower extremity venous CLINICAL INDICATION: Shortness of breath TECHNIQUE: Multiple longitudinal and transverse images of the bilateral lower extremity veins were obtained with coronel scale and color Doppler imaging. 2D grayscale measurements with compression, col or Doppler flow, and augmentation was performed. The calf veins were interrogated as well. COMPARISON: None available FINDINGS: Limited study secondary to patient's inability to abduct legs. The bilateral common femoral, femoral, and popliteal veins are patent and without evidence of fillin g defects. All these veins have normal spectral wave forms, fill with color signal, are compressibl e, and have augmentation of blood flow with compression. The visualized bilateral upper posterior and peroneal veins are patent and without evidence of filli ng defects; these veins fill with color signal and are compressible. IMPRESSION: 1. No evidence of deep vein thrombosis involving either lower extremity (given the fact that this i s a limited study) RPTAT: TT Physician Teja Date Time Electronically viewed and signed by Physician Teja on 08/30/2017 17:13 MILLY/
[2017-08-30 18:07] LABS: ADD UMIC YES; UR ASCORBIC ACID 40 mg/dL (NEGATIVE); UR BILIRUBIN (Dip) NEGATIVE (NEGATIVE); UR BLOOD (Dip) NEGATIVE (NEGATIVE); UR CLARITY CLEAR (CLEAR); UR COLOR YELLOW (YELLOW); UR GLUCOSE (Dip) NEGATIVE (NEGATIVE); UR KETONES (Dip) NEGATIVE (NEGATIVE); UR LEUKOCYTE ESTERASE (Dip) TRACE Leu/ul (NEGATIVE); UR MUCUS FEW /HPF (NONE SEEN); UR NITRITE (Dip) NEGATIVE (NEGATIVE); UR RBC 2 /HPF (0-5); UR SPECIFIC GRAVITY (Dip) 1.015 (1.003-1.030); UR TOTAL PROTEIN (Dip) NEGATIVE (NEGATIVE); UR UROBILINOGEN (Dip) NEGATIVE (NEGATIVE)
[2017-08-30] MEDS: ALBUTEROL/IPRATROPIUM (NEB) 3 ML AMP INH SCH (19:20)
--- NOTE | 2017-08-30 19:24 | CONS ---
Date/Time of Note Date/Time of Note DATE: 08/30/17 TIME: 19:10 Assessment/Plan Assessment/Plan Chief Complaint/Hosp Course 72-year-old male with a history of Alzheimer disease dementia was admitted from the senior care because of fever for the past 2 days and altered mental status. He was evaluated in the emergency room and thought to be septic and may have pneumonia. He is known to have GERD and aspiration pneumonia. During his last admission he was found to have severe urethral strictures. Attempts by the emergency room staff today to insert a Lindsey catheter were not successful therefore a urological consultation was requested. I did do the dilatation with filiforms and followers and inserted a 14 Trinidadian Lindsey catheter. Urine was sent for culture and sensitivity. Problems: Consultation Date/Type/Reason Admit Date/Time August 30, 2017 Date of Consultation: Aug 30, 2017 Type of Consultation: Urology Reason for Consultation Urethral strictures Referring Provider: JERE HAGAN Hx of Present Illness 72-year-old male who has a history of Alzheimer, dementia, has been having fever for 2 days and not responsive as his usual. he was brought from [facility] to the emergency room and is thought to have sepsis secondary to pneumonia. He does have a history of urethral strictures and attempts by the emergency room staff to insert the Lindsey catheter were not successful. Therefore a urological consultation was requested Subjective hx not possible: pt non-verbal Eyes: no complaints ENT: no complaints Gastrointestinal: no complaints Genitourinary: hematuria (Due to trauma from attempts to insert the Lindsey catheter in the emergency room) Skin: bruising Neurologic: seizure (History of seizures) Past Medical History Medical History: GERD (Dysphagia and aspiration), hypertension, urinary tract infection, other (Atrial fibrillation, pneumonia, acute kidney injury, stomach ulcers) Past Surgical History Past Surgical Hx: other (unk) Family History Significant Family History: no pertinent family hx Social History Alcohol Use: none Smoking Status: Unknown if ever smoked Exam/Review of Systems Vital Signs Vitals Vital Signs Date Time Temp Pulse Resp B/P Pulse Ox O2 Delivery O2 Flow Rate FiO2 08/30/17 18:00 94 19 94/52 99 08/30/17 17:17 8.0 08/30/17 17:00 Mask 08/30/17 15:29 98.0 08/30/17 09:32 45 Exam Constitutional: alert Psych: no complaints Eyes: nl conjunctiva ENMT: nl external ears & nose Neck: supple Respiratory: normal air movement Cardiovascular: No jugular venous distention (JVD) Gastrointestinal: soft Genitourinary - Male: nl penis, nl scrotum, other (Had a condom catheter on and he was voiding small amount of urine, the urine is clear) Extremities: other (Contractures) Neurological: confused Skin: nl turgor Results Result Diagram: 08/30/1790408/30/17 09 Results 24 hrs Laboratory Tests Test 08/30/17 09:05 08/30/17 11:08 08/30/17 13:35 08/30/17 17:50 White Blood Count 16.4 #H Red Blood Count 2.84 L Hemoglobin 9.0 L Hematocrit 27.1 L Mean Corpuscular Volume 95.4 Mean Corpuscular Hemoglobin 31.7 Mean Corpuscular Hemoglobin Concent 33.2 Red Cell Distribution Width 19.2 #H Platelet Count 220 # Mean Platelet Volume 13.9 H Neutrophils % Segmented Neutrophils % (Manual) 53 Band Neutrophils % (Manual) 31 H Lymphocytes % Lymphocytes % (Manual) 10 L Monocytes % Monocytes % (Manual) 6 Eosinophils % Basophils % Nucleated Red Blood Cells % 0.0 Neutrophils # Neutrophils # (Manual) 9.5 H Band Neutrophils # 5.0 H Absolute Lymphocytes (Manual) 1.6 Lymphocytes # Monocytes # Absolute Monocytes (Manual) 0.9 Eosinophils # Basophils # Nucleated Red Blood Cells # Platelet Estimate NORMAL Giant Platelets 3 H Polychromasia 3+ Poikilocytosis 1+ Anisocytosis 1+ Prothrombin Time 16.2 H Prothrombin Time Ratio 1.3 INR International Normalized Ratio 1.28 Activated Partial Thromboplast Time 36.0 H Blood Gas Specimen Source Blood arterial Arterial Blood Date Drawn 08/30/2017 9:45:33 AM Arterial Blood pH (Temp corrected) 7.505 H Arterial Blood pCO2 (Temp correct) 30.9 L Arterial Blood pO2 (Temp corrected) 67.3 L Arterial Blood HCO3 23.8 Arterial Blood Base Excess 1.2 Arterial Blood Oxygen Saturation 93.0 L Vishal Test ACCEPTAB Arterial Blood Gas Puncture Site Right Radial Arterial Blood Carboxyhemoglobin 0.3 Arterial Blood Methemoglobin 0.2 Blood Gas A-a O2 Differential 218.4 H Oxyhemoglobin Percent 92.5 L Total Hemoglobin 10.5 L Blood Gas Temperature 37.0 Blood Gas Modality MASK - SIMPLE FiO2 45.0 Blood Gas Notified Whom KS Blood Gas Notified Time 08/30/2017 9:49:38 AM Sodium Level 140 Potassium Level 4.2 Chloride Level 104 Carbon Dioxide Level 25 Anion Gap 15 Blood Urea Nitrogen 39 H Creatinine 1.55 H Glucose Level 122 Lactic Acid Level 1.9 1.5 1.8 Calcium Level 8.2 L Total Bilirubin 0.5 Direct Bilirubin 0.00 Indirect Bilirubin 0.5 Aspartate Amino Transf (AST/SGOT) 18 Alanine Aminotransferase (ALT/SGPT) 32 Alkaline Phosphatase 69 Troponin I < 0.012 Total Protein 6.3 Albumin 3.0 L Globulin 3.30 H Albumin/Globulin Ratio 0.90 Digoxin Level < 0.4 L Urine Color YELLOW Urine Clarity CLEAR Urine pH 5.0 Urine Specific [place] 1.015 Urine Ketones NEGATIVE Urine Nitrite NEGATIVE Urine Bilirubin NEGATIVE Urine Urobilinogen NEGATIVE Urine Leukocyte Esterase TRACE A Urine Microscopic RBC 2 Urine Microscopic WBC 21 H Urine Mucus FEW A Urine Hemoglobin NEGATIVE Urine Random Creatinine 83.21 Urine Random Sodium 91 H Urine Glucose NEGATIVE Urine Total Protein 18.0 H Medications Medications Current Medications IV Flush (NS 10 ml) 10 ml PRN PRN IV IV PROTOCOL; Start 08/30/17 at 13:30 Furosemide 40 mg 40 mg DAILY IV Last administered on 08/30/17 16:51; Admin Dose 40 MG; Start 08/30/17 at 17:00; Stop 09/02/17 at 16:59 Levofloxacin/ Dextrose 100 ml @ 100 mls/hr Q24H IVPB ; Start 08/31/17 at 09:30 Sodium Chloride (NS) 1,000 ml @ 100 mls/hr Q10H IV Last administered on 16:08; Admin Dose 100 MLS/HR; Start 08/30/17 at 14:30; Stop 08/31/17 at 10:29 Acetaminophen (Tylenol Tab) 650 mg Q4H PRN PO MILD PAIN LEVEL 1-3; Start 08/30 at 14:30 Atorvastatin Calcium (Lipitor) 20 mg QHS PO ; Start 08/30/17 at 21:00 Digoxin (Digoxin) 0.125 mg DAILY PO Last administered on 08/30/17 16:51; Admin Dose 0.125 MG; Start 08/30/17 at 17:00 Saccharomyces Boulardii (Florastor) 250 mg BID PO ; Start 08/30/17 at 21:00 Heparin Sodium (Porcine) 5000 unit 5,000 unit BID SC ; Start 08/30/17 at 21:00 Vancomycin HCl/ Sodium Chloride (Vancocin/NS) 250 ml @ 83.333 mls/ hr Q24H IVPB ; Start 08/30/17 at 23:00 Procedures Procedures Urethral dilatation. The patient was positioned in the supine position. The genital area was prepped and draped in the usual sterile manner. 10 mL of 2% lidocaine jelly was given into the urethra for local anesthesia. I waited for it to work about 5 minutes. #4 Trinidadian spiral tip filiform was then passed through the urethra all the way to the bladder. Dilatation was then done with the followers starting with 8 Trinidadian and gradually going up to 18 Trinidadian. #14 Trinidadian Lindsey catheter was then inserted, the balloon inflated was 10 mL of sterile water and the Lindsey catheter connected to a drainage bag. About 250 mL of clear urine drained out. BALAJI PERSAUD MD Aug 30, 2017 19:22
[2017-08-30] MEDS: SACCHAROMYCES BOULARDII 250 MG CAP PO SCH (22:02)
[2017-08-30] MEDS: ATORVASTATIN 20 MG TAB PO SCH (22:02)
[2017-08-30] MEDS: HEPARIN 5,000 UNIT/0.5 ML VIAL SC SCH (22:05)
[2017-08-30] MEDS ORDERED: VANCOMYCIN 1.25 GM in SOD CHLORIDE 0.9% 250 ML IVPB SCH (23:00)
[2017-08-31] VITALS (26 sets, daily range): BP systolic 85–143; BP diastolic 44–98; PULSE 77–105; RESP 15–29
--- NOTE | 2017-08-31 00:14 | RADRPT ---
PROCEDURE: CT abdomen and pelvis without contrast. CLINICAL INDICATION: Sepsis. Possible ureteral obstruction. TECHNIQUE: CT of the abdomen and pelvis was performed without contrast. Coronal and sagittal reform atted images were obtained from the axial source images. Images were reviewed on a high-resolution [employer] workstation. The total exam CTDI equals 13.84 mGy and the total exam DLP equals 87.03 mGy-cm. DI COM images are available. One or more of the following dose reduction techniques were used: - Automated exposure control. - Adjustment of the mA and/or kV according to patient size. - Use of iterative reconstruction technique. COMPARISON: Abdominal ultrasound dated 06/12/2017. FINDINGS: Visualized lower thorax: There is consolidation in the dependent portions of both lower lobes. Ther e are coronary artery calcifications. The visualized heart is otherwise unremarkable. Hepatobiliary system and spleen: The liver is grossly unremarkable. There is no intra or extrahepat ic biliary ductal dilatation. The gallbladder is grossly unremarkable. The spleen is grossly unremar kable. The pancreas is grossly unremarkable. Adrenal glands and genitourinary system: The adrenal glands are grossly unremarkable. There is mode rate bilateral hydronephrosis with no radiopaque obstructing stone identified. The urinary bladder i s distended and demonstrates nondependent air. The prostate gland and seminal vesicles are grossly u nremarkable. Gastrointestinal system: The rectum is distended with stool measuring 8.6 cm in diameter and there is a moderate volume of stool elsewhere throughout the colon. There is a percutaneous gastrostomy tu be in place. There is a small right inguinal hernia containing a loop of nonobstructed distal ileum. There is no evidence of bowel obstruction. There is diverticulosis of the descending colon. The alida endix is in the right lower quadrant and is unremarkable. Peritoneum, vascular, and lymphatics: There is no free intraperitoneal air or free fluid. There is no mesenteric or retroperitoneal adenopathy. There are atherosclerotic changes of the aorta, which i s nonaneurysmal. Musculoskeletal system and soft tissues: There is lumbar levoscoliosis and multilevel degenerative enthesopathy. There is a mild compression deformity involving the superior plate of the T12 vertebra l body, age indeterminate. There are no concerning osseous lesions. The soft tissues are unremarkabl e. IMPRESSION: 1. Consolidation within the dependent portions of both lower lobes, consistent with aspiration or p neumonia. 2. Moderate bilateral hydroureteronephrosis with a distended urinary bladder. Differential consider ations include neurogenic bladder and bladder outlet obstruction. 3. Distended rectum with stool measuring 8.6 cm with a moderate volume of stool elsewhere throughou t the colon, suggestive of rectal fecal impaction. 4. Small right inguinal hernia containing a nonobstructed loop of distal ileum. 5. Descending colonic diverticulosis. 6. Multivessel coronary artery calcifications and atherosclerotic changes of the aorta. 7. Mild T12 vertebral body compression deformity, age indeterminate. These findings discussed with the patient's nurse in the ICU [facility] at 0010 hours on 08/31/2017. A Lindsey catheter had been placed by the time of this dictation. RPTAT: HLBP .Delroy Nagel MD, MD Date Time Electronically viewed and signed by .Delroy Nagel MD, on 08/31/2017 00:14 .P/
[2017-08-31 00:28] LABS: TROPONIN-I 0.019 ng/ml (0.00-0.12)
[2017-08-31 00:48] LABS: CK-MB 4.05 ng/ml (0.0-2.4)
[2017-08-31] MEDS: ALBUTEROL/IPRATROPIUM (NEB) 3 ML AMP INH SCH ×4 (01:28→19:58)
[2017-08-31] MEDS: SOD CHLORIDE 0.9% 1,000 ML IV SCH ×2 (01:35→10:26)
[2017-08-31 05:52] LABS: ABNORMAL IP MESSAGE 1; BASOPHILS % 0.2 % (0.0-2.0); EOSINOPHILS % 0.1 % (0.0-7.0); HEMATOCRIT 21.7 % (42.0-52.0); LYMPHOCYTES # 1.1 10^3/ul (0.8-2.9); LYMPHOCYTES % 8.7 % (15.0-51.0); MEAN CORPUSCULAR HEMOGLOBIN 31.7 pg (29.0-33.0); MEAN CORPUSCULAR HGB CONC 32.3 g/dl (32.0-37.0); MEAN CORPUSCULAR VOLUME 98.2 fl (82.0-101.0); MEAN PLATELET VOLUME 13.9 fl (7.4-10.4); MONOCYTE # 1.5 10^3/ul (0.3-0.9); MONOCYTES % 12.2 % (0.0-11.0); NEUTROPHIL # 9.9 10^3/ul (1.6-7.5); NEUTROPHILS % 78.4 % (39.0-77.0); PLATELET COUNT 176 10^3/UL (140-415); POSITIVE DIFF @See below; RED BLOOD COUNT 2.21 10^6/ul (4.70-6.10); RED CELL DISTRIBUTION WIDTH 19.1 % (11.5-14.5); WHITE BLOOD COUNT 12.6 10^3/ul (4.8-10.8)
[2017-08-31 06:24] LABS: CALCIUM 7.5 mg/dl (8.4-10.2); CREATININE 1.02 mg/dl (0.61-1.24); MAGNESIUM 1.9 mg/dl (1.7-2.5)
[2017-08-31 06:25] LABS: INR 1.37; PARTIAL THROMBOPLASTIN TIME 39.1 Sec (25.0-35.0); PROTIME 17.1 Sec (11.9-14.9); PT RATIO 1.3
[2017-08-31 06:30] LABS: TROPONIN-I 0.019 ng/ml (0.00-0.12)
[2017-08-31 06:33] LABS: CK-MB 2.02 ng/ml (0.0-2.4)
--- NOTE | 2017-08-31 08:31 | CONS ---
DATE OF ADMISSION: 08/30/2017 DATE OF CONSULTATION: 08/30/2017 REASON FOR CONSULTATION: Respiratory distress. Thank you, Dr. Hagan, for this consultation. HISTORY OF PRESENT ILLNESS: This is a 72-year-old gentleman with multiple medical problems brought in for worsening mentation and increasing respiratory distress with possible evidence of aspiration pneumonia. The patient is currently nonverbal and unable to give me further details. On admission, found to have leukocytosis and early infiltrate on chest x-ray. Currently continues nonrebreather O2. PAST MEDICAL HISTORY: Dysphagia, with G-tube, history of atrial fibrillation, gastric ulcerations, COPD, and underlying dementia. MEDICATIONS: Per chart. ALLERGIES: PENICILLIN. SOCIAL HISTORY: Ex-smoker, no alcohol, no history of drug use. FAMILY HISTORY: Noncontributory. SYSTEMS REVIEW: A 12-point review of systems was negative, other than that mentioned above. PHYSICAL EXAMINATION: GENERAL: Chronically ill appearing gentleman, comfortable at rest, no acute distress. VITAL SIGNS: Currently afebrile, pulse is 84, blood pressure 108/66, O2 saturation 96% on 8 liters facemask. NECK: Supple, no JVD or lymphadenopathy. CARDIAC: S1, S2, no added sounds or murmurs. CHEST: Diminished air entry bilaterally. ABDOMEN: Soft, nontender. No guarding or rebound. EXTREMITIES: No cyanosis, clubbing, or edema. NEUROLOGIC: Generalized weakness. LABORATORY DATA: White count 16.4, hemoglobin 9, platelets 220, BUN 39, creatinine 1.55. INR 1.28. ABG: pH 7.5, pCO2 of 30, pO2 of 67. DIAGNOSTIC DATA: Chest x-ray showed patchy infiltrates in both lung bases. CT of the brain showed no acute intracranial defect or changes. IMPRESSION AND PLAN: 1. Likely healthcare-associated pneumonia. 2. Hypoxemic respiratory failure. 3. History of dementia. 4. History of dysphagia. 5. History of hypertension. The patient will require 1. Continued broad spectrum antibiotics pending cultures. 2. IV fluids. 3. Aspiration precautions. 4. Pulmonary toilet. 5. DVT and GI prophylaxis. 6. Establish code status given advanced dementia and multiple comorbidities. Dictated By: LEIGHA DE LEÓN MD SV/HASMUKH Conf#: [id number] DID#: [id number] CC: JERE HAGAN MD;*[facility]*
[2017-08-31 09:25] LABS: AADO2 Arterial 49.7 mmHg (7.0-24.0); Allen Test ACCEPTAB; Arterial Base Excess -0.9 mmol/L (-3.0-3); Arterial COHb 0.2 % (0.0-3.0); Arterial Fraction of Oxyhgb 92.4 % (93.0-99.0); Arterial HCO3 21.9 mmol/L (22.0-26.0); Arterial MetHb 0.1 % (0.0-1.5); MODE DT
[2017-08-31] MEDS: DIGOXIN 0.125 MG TAB PO SCH (09:28)
[2017-08-31] MEDS: SACCHAROMYCES BOULARDII 250 MG CAP PO SCH ×2 (09:28→22:16)
[2017-08-31] MEDS: FUROSEMIDE 40 MG INJ IV SCH (09:28)
[2017-08-31] MEDS: COLLAGENASE 30 GM TUBE TOP SCH ×2 (09:31→22:18)
[2017-08-31] MEDS: LEVOFLOXACIN 500MG/D5W (PMX) 100 ML IVPB SCH (09:31)
--- NOTE | 2017-08-31 09:36 | CONS ---
DATE OF ADMISSION: 08/30/2017 DATE OF CONSULTATION: NEPROLOGY CONSULT REASON FOR CONSULTATION: Acute kidney injury. HISTORY OF PRESENT ILLNESS: This is a 72-year-old male with a past medical history of dysphagia, hi story of AFib, history of Alzheimer dementia, history of BPH, history of GERD, COPD who presents to [facility] due to fever and altered mental status. The patient was noted to be un responsive to verbal stimuli. Upon arrival, the patient was noted to be in respiratory distress, wa s placed on 100% nonrebreather. The patient had laboratory data drawn, which showed a white count o f 16,000. The patient had an x-ray which showed evidence of infiltrates in right greater lobe. The patient was placed on antibiotic therapy, IV fluids and admitted to the intensive care unit for joselo luation. In terms of the patient's renal history, the patient has a previous baseline creatinine around 1 to 1.2 mg/dL. On admission, the patient had a creatinine of 1.5 mg/dL. There have been no reports of any hemoptysis, hematemesis, hematochezia. PAST MEDICAL HISTORY: As stated above, history of Alzheimer dementia, AFib, BPH, COPD. PAST SURGICAL HISTORY: None. ALLERGIES: PATIENT DOES HAVE ALLERGIES: PLEASE SEE LIST. FAMILY HISTORY: Noncontributory. SOCIAL HISTORY: Lives at a skilled nurse facility. REVIEW OF SYSTEMS: Unable to do adequate review of systems as patient is altered. Pertinent positi ves stated in HPI, otherwise negative. PHYSICAL EXAMINATION: VITAL SIGNS: Blood pressure is 108/66, respiration 18, pulse 84, temperature 97.6. HEENT: Head is normocephalic. NECK: Supple. HEART: Regular rate. LUNGS: Show diminished breath sounds at base. ABDOMEN: Soft, nontender to palpation. No rebound or guarding. EXTREMITIES: Negative for clubbing, cyanosis, no edema. DERMATOLOGIC: No rashes. MUSCULOSKELETAL: No joint effusions. NEUROLOGIC: No change in exam. MEDICATIONS: The patient's medications have been reviewed. LABORATORY DATA: Shows white count 16.4, hemoglobin 9.0, hematocrit 27.1, platelet count is 220. S odium 140, potassium 4.2, BUN 39, creatinine 1.55. IMAGING STUDIES: As stated in HPI. ASSESSMENT AND PLAN: This is a 72-year-old male who presents with: 1. Nonoliguric acute kidney injury on top of chronic kidney disease with a baseline creatinine of 1 to 1.2 mg/dL. Etiology of acute kidney injury is likely secondary to sepsis, hemodynamics, possibl e tubular injury. Low suspicion for acute glomerulonephritis, vasculitis given the patient's clinic al presentation. Plan is to do a full evaluation. Will check UA with microanalysis. Check urine e lectrolytes, check a renal ultrasound. We would continue current medical management. Continue anti biotic therapy, monitor closely. 2. Anemia. We will monitor hemoglobin and hematocrit levels. 3. Mineral bone disorder. Monitor calcium and phosphorus levels. 4. Severe sepsis secondary to aspiration pneumonia. Continue current medical management. Continue antibiotic therapy. Recommend pressor support, maintain MAP above 65. 5. Acute hypoxemic respiratory failure secondary to aspiration pneumonia. Continue current medical management and continue nonrebreather. Follow up with pulmonary. 6. Paroxysmal atrial fibrillation. Continue current medical management. 7. Acute encephalopathy on top of Alzheimer dementia. Etiology is toxic metabolic. Continue to mo nitor. 8. Dysphagia, status post percutaneous endoscopic gastrostomy tube feeding. 9. Gastrointestinal and deep venous thrombosis prophylaxis. Thank you, Dr. Millan, for this interesting consultation. It will be a pleasure to follow patient with you throughout the hospital course. Dictated By: LEVY PHAM/HASMUKH Conf#: [id number] DID#: [id number]
[2017-08-31] MEDS: HEPARIN 5,000 UNIT/0.5 ML VIAL SC SCH ×2 (09:40→22:22)
--- NOTE | 2017-08-31 10:23 | RADRPT ---
PROCEDURE: XR Chest. CLINICAL INDICATION: Pneumonia TECHNIQUE: An AP view of the chest was obtained. COMPARISON: DR TEJEDA CHEST 08/30/2017; CHEST 08/30/2017; CHEST 06/20/2017; CHEST 06/17/2017 FINDINGS: There is left upper extremity PICC line with tip near the cavoatrial junction. Lung volumes are low. There is prominence of the interstitial and central pulmonary vascular markin gs with bibasilar interstitial opacities. No pleural effusion or pneumothorax is seen. The cardio mediastinal silhouette is non enlarged. Calcifications are seen within the aortic arch. The osseous structures demonstrate senescent changes. IMPRESSION: 1. Right basilar interstitial opacities may reflect atelectasis or pneumonia, improved when compare d to the prior examination. 2. Findings suggestive of pulmonary vascular congestion/interstitial edema. No significant interva l change. 3. Aortic atherosclerosis. 4. Left upper extremity PICC line with tip near the cavoatrial junction. RPTAT: HH .Cheryl Romeo MD, MD Date Time Electronically viewed and signed by .Cheryl Romeo MD, on 08/31/2017 10:22 .G/
[2017-08-31] MEDS ORDERED: HYDROCODONE/APAP (5/325) TAB GTB PRN (11:30)
--- NOTE | 2017-08-31 11:38 | CONS ---
Date/Time of Note Date/Time of Note DATE: 08/31/17 TIME: 11:35 Consult Date/Type/Reason Admit Date/Time Aug 30, 2017 at 14:08 Initial Consult Date 08/30/17 Type of Consultation: Pulmonary Ordering Provider: JERE HAGAN Subjective Patient comfortable this morning. More alert opens eyes appears agitated moderate secretions requiring frequent pulmonary toilet. Remains hemodynamically stable. Objective Vital Signs Date Time Temp Pulse Resp B/P Pulse Ox O2 Delivery O2 Flow Rate FiO2 08/31/17 11:01 98 19 93 08/31/17 11:00 110/59 Room Air 08/31/17 08:00 100.7 08/31/17 01:28 21 08/31/17 00:30 8.0 Intake and Output 08/30/17 08/30/17 08/31/17 15:00 23:00 07:00 Intake Total 2820 ml 950 ml 1051.6 ml Output Total 1950 ml 880 ml Balance 2820 ml -1000 ml 171.6 ml Exam PHYSICAL EXAMINATION: GENERAL: Chronically ill appearing gentleman, comfortable at rest, no acute distress. VITAL SIGNS: NECK: Supple, no JVD or lymphadenopathy. CARDIAC: S1, S2, no added sounds or murmurs. CHEST: Diminished air entry bilaterally. ABDOMEN: Soft, nontender. No guarding or rebound. EXTREMITIES: No cyanosis, clubbing, or edema. NEUROLOGIC: Generalized weakness. Results/Medications Result Diagram: 08/31/17 0450 08/31/17 0450 Results 24 hrs Laboratory Tests Test 08/30/17 13:35 08/30/17 17:50 08/30/17 23:18 08/31/17 04:50 Lactic Acid Level 1.8 0.7 Digoxin Level < 0.4 L Urine Color YELLOW Urine Clarity CLEAR Urine pH 5.0 Urine Specific [place] 1.015 Urine Ketones NEGATIVE Urine Nitrite NEGATIVE Urine Bilirubin NEGATIVE Urine Urobilinogen NEGATIVE Urine Leukocyte Esterase TRACE A Urine Microscopic RBC 2 Urine Microscopic WBC 21 H Urine Mucus FEW A Urine Hemoglobin NEGATIVE Urine Random Creatinine 83.21 Urine Random Sodium 91 H Urine Glucose NEGATIVE Urine Total Protein 18.0 H Creatine Kinase 345 H 267 H Creatine Kinase Index 1.2 0.8 Creatinine Kinase MB (Mass) 4.05 H 2.02 Troponin I 0.019 0.019 White Blood Count 12.6 #H Red Blood Count 2.21 #L Hemoglobin 7.0 #L Hematocrit 21.7 L Mean Corpuscular Volume 98.2 Mean Corpuscular Hemoglobin 31.7 Mean Corpuscular Hemoglobin Concent 32.3 Red Cell Distribution Width 19.1 H Platelet Count 176 Mean Platelet Volume 13.9 H Neutrophils % 78.4 H Lymphocytes % 8.7 L Monocytes % 12.2 H Eosinophils % 0.1 Basophils % 0.2 Nucleated Red Blood Cells % 0.0 Neutrophils # 9.9 H Lymphocytes # 1.1 Monocytes # 1.5 H Eosinophils # 0.0 Basophils # 0.0 Nucleated Red Blood Cells # 0.0 Prothrombin Time 17.1 H Prothrombin Time Ratio 1.3 INR International Normalized Ratio 1.37 Activated Partial Thromboplast Time 39.1 H Sodium Level 143 Potassium Level 4.0 Chloride Level 110 Carbon Dioxide Level 25 Anion Gap 12 Blood Urea Nitrogen 28 #H Creatinine 1.02 Glucose Level 95 Calcium Level 7.5 L Phosphorus Level 2.6 Magnesium Level 1.9 Test 08/31/17 07:00 Blood Gas Specimen Source Blood arterial Arterial Blood Date Drawn 08/31/2017 8:50:08 AM Arterial Blood pH (Temp corrected) 7.500 H Arterial Blood pCO2 (Temp correct) 28.7 L Arterial Blood pO2 (Temp corrected) 65.7 L Arterial Blood HCO3 21.9 L Arterial Blood Base Excess -0.9 Arterial Blood Oxygen Saturation 92.7 L Vishal Test ACCEPTAB Arterial Blood Gas Puncture Site Right Radial Arterial Blood Carboxyhemoglobin 0.2 Arterial Blood Methemoglobin 0.1 Blood Gas A-a O2 Differential 49.7 H Oxyhemoglobin Percent 92.4 L Total Hemoglobin 8.0 L Blood Gas Temperature 37.0 Blood Gas Modality DT FiO2 21.0 Blood Gas Notified Whom DT Blood Gas Notified Time 08/31/2017 9:23:45 AM Medications Current Medications IV Flush (NS 10 ml) 10 ml PRN PRN IV IV PROTOCOL; Start 08/30/17 at 13:30 Furosemide 40 mg 40 mg DAILY IV Last administered on 08/31/17 09:28; Admin Dose 40 MG; Start 08/30/17 at 17:00; Stop 09/02/17 at 16:59 Levofloxacin/ Dextrose 100 ml @ 100 mls/hr Q24H IVPB Last administered on 09:31; Admin Dose 100 MLS/HR; Start 08/31/17 at 09:30 Sodium Chloride (NS) 1,000 ml @ 50 mls/hr Q20H IV Last administered on 10:26; Admin Dose 50 MLS/HR; Start 08/30/17 at 14:30 Acetaminophen (Tylenol Tab) 650 mg Q4H PRN PO MILD PAIN LEVEL 1-3; Start 08/30 at 14:30 Atorvastatin Calcium (Lipitor) 20 mg QHS PO Last administered on 08/30/17 22: 02; Admin Dose 20 MG; Start 08/30/17 at 21:00 Digoxin (Digoxin) 0.125 mg DAILY PO Last administered on 08/31/17 09:28; Admin Dose 0.125 MG; Start 08/30/17 at 17:00 Saccharomyces Boulardii (Florastor) 250 mg BID PO Last administered on 09:28; Admin Dose 250 MG; Start 08/30/17 at 21:00 Heparin Sodium (Porcine) (Heparin (5000 Units/0.5 ml)) 5,000 unit BID SC Last administered on 08/31/17 09:40; Admin Dose 5,000 UNIT; Start 08/30/17 at 21: 00 Collagenase 1 applic 1 applic BID TOP Last administered on 08/31/17 09:31; Admin Dose 1 APPLIC; Start 08/31/17 at 09:00 Vancomycin HCl (Vancocin) 250 ml @ 125 mls/hr Q12H IVPB ; Start 08/31/17 at 12 :00 Miscellaneous Information (*Rx Drug Level Order Reminder*) VANCO TROUGH @ 1, 200 ON ... ONCE ONCE XX ; Start 09/01/17 at 12:00; Stop 09/01/17 at 12:01 Acetaminophen/ Hydrocodone Bitart ([place] (5/325)) 1 tab Q4H PRN GTB MODERATE PAIN LEVEL 4-6; Start 08/31/17 at 11:30; Status UNV Assessment/Plan Chief Complaint/Hosp Course IMPRESSION AND PLAN: 1. Likely healthcare-associated pneumonia. 2. Hypoxemic respiratory failure. 3. History of dementia. 4. History of dysphagia. 5. History of hypertension. The patient will require 1. Continued broad spectrum antibiotics pending cultures. 2. IV fluids. 3. Aspiration precautions. 4. Pulmonary toilet. 5. DVT and GI prophylaxis. 6. Tube feeding as tolerated Transfer to telemetry. Problems: LEIGHA DE LEÓN MD, [facility] Aug 31, 2017 11:38
[2017-08-31] MEDS ORDERED: MAGNESIUM CITRATE 300 ML BTL PEG ONE (13:00)
--- NOTE | 2017-08-31 13:01 | PN ---
Date/Time of Note Date/Time of Note DATE: 08/31/17 TIME: 12:58 Assessment/Plan VTE Prophylaxis VTE Prophylaxis Intervention: heparin Lines/Catheters IV [facility]ter [facility] (from [facility] PICC Line Central line still needed: Yes Urinary Cath still in place: Yes Reason Cath still needed: urinary retention Assessment/Plan Problems: (1) Pneumonia Status: Acute Comment: Healthcare associated pneumonia. Clinically he is improving and I am in agreement with pulmonary consultants that he could probably be moved out of the ICU to a telemetry monitored bed later today Qualifiers: Pneumonia type: aspiration pneumonia Aspiration pneumonia type: unspecified Laterality: bilateral Lung location: lower lobe of lung Qualified Code: J69.0 - Aspiration pneumonia of both lower lobes, unspecified aspiration pneumonia type (2) SIRS (systemic inflammatory response syndrome) Status: Acute Comment: Improving with aggressive treatment (3) Respiratory failure with hypoxia Status: Acute Comment: Improving. Please note he still has significant issues Qualifiers: Chronicity: acute Qualified Code: J96.01 - Acute respiratory failure with hypoxia (4) Urethral stricture Status: Chronic Comment: He has been seen by urology and had dilatation and placement of a Lindsey catheter which is draining adequately. His postobstructive state is demonstrating improvement in his acute kidney injury Qualifiers: Urethral stricture type: post-procedural Urethral stricture sex-location: male urethra-anterior Qualified Code: N99.113 - Postprocedural stricture of anterior urethra (5) DEEP (acute kidney injury) Status: Resolved Comment: As above improved with relief of obstruction (6) Anemia Status: Acute Comment: Go to recheck and also do a urine a correction a stool for occult blood. He will possibly need transfusion Qualifiers: Anemia type: unspecified type Qualified Code: D64.9 - Anemia, unspecified type (7) Septic shock Status: Acute Comment: Resolving nicely Subjective 24 Hr Interval Summary Free Text/Dictation Patient is awake responds minimally. Constitutional: no complaints Exam/Review of Systems Vital Signs Vitals Vital Signs Date Time Temp Pulse Resp B/P Pulse Ox O2 Delivery O2 Flow Rate FiO2 08/31/17 12:15 90 08/31/17 12:00 99.0 130/67 Room Air 08/31/17 01:28 21 08/31/17 00:30 8.0 Intake and Output 08/30/17 08/30/17 08/31/17 15:00 23:00 07:00 Intake Total 2820 ml 950 ml 1051.6 ml Output Total 1950 ml 880 ml Balance 2820 ml -1000 ml 171.6 ml Exam Constitutional: alert (Not oriented to person place or time) Neck: non-tender, supple Respiratory: normal air movement, other (Right basilar crackles) Cardiovascular: nl pulses, regular rate and rhythm Gastrointestinal: nl liver, spleen, non-tender, soft Skin: other (Skin is dry) Results Result Diagram: 08/31/17 04508/31/17 0450 Results 24 hrs Laboratory Tests Test 08/30/17 13:35 08/30/17 17:50 08/30/17 23:18 08/31/17 04:50 Lactic Acid Level 1.8 0.7 Digoxin Level < 0.4 L Urine Color YELLOW Urine Clarity CLEAR Urine pH 5.0 Urine Specific [place] 1.015 Urine Ketones NEGATIVE Urine Nitrite NEGATIVE Urine Bilirubin NEGATIVE Urine Urobilinogen NEGATIVE Urine Leukocyte Esterase TRACE A Urine Microscopic RBC 2 Urine Microscopic WBC 21 H Urine Mucus FEW A Urine Hemoglobin NEGATIVE Urine Random Creatinine 83.21 Urine Random Sodium 91 H Urine Glucose NEGATIVE Urine Total Protein 18.0 H Creatine Kinase 345 H 267 H Creatine Kinase Index 1.2 0.8 Creatinine Kinase MB (Mass) 4.05 H 2.02 Troponin I 0.019 0.019 White Blood Count 12.6 #H Red Blood Count 2.21 #L Hemoglobin 7.0 #L Hematocrit 21.7 L Mean Corpuscular Volume 98.2 Mean Corpuscular Hemoglobin 31.7 Mean Corpuscular Hemoglobin Concent 32.3 Red Cell Distribution Width 19.1 H Platelet Count 176 Mean Platelet Volume 13.9 H Neutrophils % 78.4 H Lymphocytes % 8.7 L Monocytes % 12.2 H Eosinophils % 0.1 Basophils % 0.2 Nucleated Red Blood Cells % 0.0 Neutrophils # 9.9 H Lymphocytes # 1.1 Monocytes # 1.5 H Eosinophils # 0.0 Basophils # 0.0 Nucleated Red Blood Cells # 0.0 Prothrombin Time 17.1 H Prothrombin Time Ratio 1.3 INR International Normalized Ratio 1.37 Activated Partial Thromboplast Time 39.1 H Sodium Level 143 Potassium Level 4.0 Chloride Level 110 Carbon Dioxide Level 25 Anion Gap 12 Blood Urea Nitrogen 28 #H Creatinine 1.02 Glucose Level 95 Calcium Level 7.5 L Phosphorus Level 2.6 Magnesium Level 1.9 Test 08/31/17 07:00 Blood Gas Specimen Source Blood arterial Arterial Blood Date Drawn 08/31/2017 8:50:08 AM Arterial Blood pH (Temp corrected) 7.500 H Arterial Blood pCO2 (Temp correct) 28.7 L Arterial Blood pO2 (Temp corrected) 65.7 L Arterial Blood HCO3 21.9 L Arterial Blood Base Excess -0.9 Arterial Blood Oxygen Saturation 92.7 L Vishal Test ACCEPTAB Arterial Blood Gas Puncture Site Right Radial Arterial Blood Carboxyhemoglobin 0.2 Arterial Blood Methemoglobin 0.1 Blood Gas A-a O2 Differential 49.7 H Oxyhemoglobin Percent 92.4 L Total Hemoglobin 8.0 L Blood Gas Temperature 37.0 Blood Gas Modality DT FiO2 21.0 Blood Gas Notified Whom DT Blood Gas Notified Time 08/31/2017 9:23:45 AM Medications Medications Current Medications IV Flush (NS 10 ml) 10 ml PRN PRN IV IV PROTOCOL; Start 08/30/17 at 13:30 Furosemide 40 mg 40 mg DAILY IV Last administered on 08/31/17 09:28; Admin Dose 40 MG; Start 08/30/17 at 17:00; Stop 09/02/17 at 16:59 Levofloxacin/ Dextrose 100 ml @ 100 mls/hr Q24H IVPB Last administered on 09:31; Admin Dose 100 MLS/HR; Start 08/31/17 at 09:30 Sodium Chloride (NS) 1,000 ml @ 50 mls/hr Q20H IV Last administered on 10:26; Admin Dose 50 MLS/HR; Start 08/30/17 at 14:30 Acetaminophen (Tylenol Tab) 650 mg Q4H PRN PO MILD PAIN LEVEL 1-3; Start 08/30 at 14:30 Atorvastatin Calcium (Lipitor) 20 mg QHS PO Last administered on 08/30/17 22: 02; Admin Dose 20 MG; Start 08/30/17 at 21:00 Digoxin (Digoxin) 0.125 mg DAILY PO Last administered on 08/31/17 09:28; Admin Dose 0.125 MG; Start 08/30/17 at 17:00 Saccharomyces Boulardii (Florastor) 250 mg BID PO Last administered on 09:28; Admin Dose 250 MG; Start 08/30/17 at 21:00 Heparin Sodium (Porcine) (Heparin (5000 Units/0.5 ml)) 5,000 unit BID SC Last administered on 08/31/17 09:40; Admin Dose 5,000 UNIT; Start 08/30/17 at 21: 00 Collagenase 1 applic 1 applic BID TOP Last administered on 08/31/17 09:31; Admin Dose 1 APPLIC; Start 08/31/17 at 09:00 Vancomycin HCl (Vancocin) 250 ml @ 125 mls/hr Q12H IVPB ; Start 08/31/17 at 12 :00 Miscellaneous Information (*Rx Drug Level Order Reminder*) VANCO TROUGH @ 1, 200 ON ... ONCE ONCE XX ; Start 09/01/17 at 12:00; Stop 09/01/17 at 12:01 Acetaminophen/ Hydrocodone Bitart ([place] (5/325)) 1 tab Q4H PRN GTB MODERATE PAIN LEVEL 4-6; Start 08/31/17 at 11:30 Magnesium Citrate (Citroma) 300 ml ONCE ONCE PEG ; Start 08/31/17 at 13:00; Stop 08/31/17 at 13:01 BERNIE CAN MD Aug 31, 2017 13:01
[2017-08-31] MEDS: VANCOMYCIN 1 GM in NS 250 ML IVPB SCH (14:00)
--- NOTE | 2017-08-31 14:13 | PN ---
DATE: 08/31/2017 SUBJECTIVE: The patient remains critically ill in intensive care unit. The patient has been hemody namically stable. No acute events noted. No hemoptysis, hematemesis or hematochezia. OBJECTIVE: VITAL SIGNS: Blood pressure is 115/50, respirations 20, pulse 80, temperature 98.0. I's and O's re viewed. HEENT: Head is normocephalic. NECK: Supple. HEART: Regular rate. LUNGS: Show diminished breath sounds at base. ABDOMEN: Soft, nontender to palpation. No rebound or guarding. EXTREMITIES: Negative for clubbing, cyanosis. No edema. DERMATOLOGIC: No rashes. MUSCULOSKELETAL: No joint effusions. NEUROLOGIC: No change in exam. MEDICATIONS: The patient's medications have been reviewed. LABORATORY DATA: Shows urinalysis with pyuria, FENa greater than 1%, a protein-creatinine ratio alida roximately 200 mg per gram of creatinine. Sodium 143, BUN 28, creatinine 1.02. White count 12.6, h emoglobin 7.0, platelet count 176. INR 1.36. IMAGING: The patient's CT scan of the abdomen and pelvis shows consolidation in both lower lobes co nsistent with aspiration pneumonia, moderate bilateral hydroureteronephrosis with a distended urinar y bladder, distended rectum, small right inguinal hernia, ascending colonic diverticulosis. ASSESSMENT AND PLAN: 1. Nonoliguric acute kidney injury with a previous baseline creatinine around 1 to 1.5 mg/dL. Etio logy of acute kidney injury is likely secondary to obstructive uropathy. The patient's CT scan show s bilateral hydronephrosis. The patient's renal function has improved after Lindsey catheter was plac ed. The patient's urinalysis was also bland, no evidence of active sediment. Plan at this point is to check a renal ultrasound to see if hydronephrosis has improved. Would otherwise continue tracie t treatment plan. Continue supportive care, renally dose all meds, avoid nephrotoxins and will jose calate patient's IV fluids. 2. Anemia with a drop in H and H. Etiology may be dilutional. Will continue to monitor. Transfus e as needed. 3. Mineral bone disorder. Monitor calcium and phosphorus levels. 4. Bilateral hydroureteronephrosis. The patient is status post Lindsey catheter placement. The eagle ent has been seen by urology, will follow up recommendations. 5. Severe sepsis secondary to aspiration pneumonia. Continue current antibiotic regimen. 6. Acute respiratory failure secondary to pneumonia. The patient is currently off nonrebreather an d stable on nasal cannula, continue. 7. Dysphagia, status post percutaneous endoscopic gastrostomy. Continue tube feeding. 8. Acute encephalopathy on Alzheimer dementia. Etiology was toxic metabolic. Continue to monitor. 9. Gastrointestinal and deep vein thrombosis prophylaxis. Dictated By: LEVY ALY DO NR/NTS Conf#: [id number] DID#: [id number] CC: JERE HAGAN MD;*EndCC*
--- NOTE | 2017-08-31 15:30 | CONS ---
Date/Time of Note Date/Time of Note DATE: 08/31/17 TIME: 15:27 Consult Date/Type/Reason Admit Date/Time Aug 30, 2017 at 14:08 Initial Consult Date 08/30/17 Type of Consultation: Urology Reason for Consultation Urethral strictures Ordering Provider: JERE HAGAN Subjective Patient appears more comfortable today but he is not communicative Objective Vital Signs Date Time Temp Pulse Resp B/P Pulse Ox O2 Delivery O2 Flow Rate FiO2 08/31/17 14:00 95 17 119/59 93 Room Air 08/31/17 13:33 21 08/31/17 12:00 99.0 08/31/17 00:30 8.0 Intake and Output 08/30/17 08/30/17 08/31/17 15:00 23:00 07:00 Intake Total 2820 ml 950 ml 1151.6 ml Output Total 1950 ml 980 ml Balance 2820 ml -1000 ml 171.6 ml Exam Lindsey catheter is draining clear urine, nurses were changing him and he does have a bedsore in the sacral coccygeal area Results/Medications Result Diagram: 08/31/17 0450 08/31/17 0450 Results 24 hrs Laboratory Tests Test 08/30/17 17:50 08/30/17 23:18 08/31/17 04:50 08/31/17 07:00 Urine Color YELLOW Urine Clarity CLEAR Urine pH 5.0 Urine Specific [place] 1.015 Urine Ketones NEGATIVE Urine Nitrite NEGATIVE Urine Bilirubin NEGATIVE Urine Urobilinogen NEGATIVE Urine Leukocyte Esterase TRACE A Urine Microscopic RBC 2 Urine Microscopic WBC 21 H Urine Mucus FEW A Urine Hemoglobin NEGATIVE Urine Random Creatinine 83.21 Urine Random Sodium 91 H Urine Glucose NEGATIVE Urine Total Protein 18.0 H Creatine Kinase 345 H 267 H Creatine Kinase Index 1.2 0.8 Creatinine Kinase MB (Mass) 4.05 H 2.02 Troponin I 0.019 0.019 White Blood Count 12.6 #H Red Blood Count 2.21 #L Hemoglobin 7.0 #L Hematocrit 21.7 L Mean Corpuscular Volume 98.2 Mean Corpuscular Hemoglobin 31.7 Mean Corpuscular Hemoglobin Concent 32.3 Red Cell Distribution Width 19.1 H Platelet Count 176 Mean Platelet Volume 13.9 H Neutrophils % 78.4 H Lymphocytes % 8.7 L Monocytes % 12.2 H Eosinophils % 0.1 Basophils % 0.2 Nucleated Red Blood Cells % 0.0 Neutrophils # 9.9 H Lymphocytes # 1.1 Monocytes # 1.5 H Eosinophils # 0.0 Basophils # 0.0 Nucleated Red Blood Cells # 0.0 Prothrombin Time 17.1 H Prothrombin Time Ratio 1.3 INR International Normalized Ratio 1.37 Activated Partial Thromboplast Time 39.1 H Sodium Level 143 Potassium Level 4.0 Chloride Level 110 Carbon Dioxide Level 25 Anion Gap 12 Blood Urea Nitrogen 28 #H Creatinine 1.02 Glucose Level 95 Lactic Acid Level 0.7 Calcium Level 7.5 L Phosphorus Level 2.6 Magnesium Level 1.9 Blood Gas Specimen Source Blood arterial Arterial Blood Date Drawn 08/31/2017 8:50:08 AM Arterial Blood pH (Temp corrected) 7.500 H Arterial Blood pCO2 (Temp correct) 28.7 L Arterial Blood pO2 (Temp corrected) 65.7 L Arterial Blood HCO3 21.9 L Arterial Blood Base Excess -0.9 Arterial Blood Oxygen Saturation 92.7 L Vishal Test ACCEPTAB Arterial Blood Gas Puncture Site Right Radial Arterial Blood Carboxyhemoglobin 0.2 Arterial Blood Methemoglobin 0.1 Blood Gas A-a O2 Differential 49.7 H Oxyhemoglobin Percent 92.4 L Total Hemoglobin 8.0 L Blood Gas Temperature 37.0 Blood Gas Modality DT FiO2 21.0 Blood Gas Notified Whom DT Blood Gas Notified Time 08/31/2017 9:23:45 AM Medications Current Medications IV Flush (NS 10 ml) 10 ml PRN PRN IV IV PROTOCOL; Start 08/30/17 at 13:30 Furosemide 40 mg 40 mg DAILY IV Last administered on 08/31/17 09:28; Admin Dose 40 MG; Start 08/30/17 at 17:00; Stop 09/02/17 at 16:59 Levofloxacin/ Dextrose 100 ml @ 100 mls/hr Q24H IVPB Last administered on 09:31; Admin Dose 100 MLS/HR; Start 08/31/17 at 09:30 Sodium Chloride (NS) 1,000 ml @ 50 mls/hr Q20H IV Last administered on 10:26; Admin Dose 50 MLS/HR; Start 08/30/17 at 14:30 Acetaminophen (Tylenol Tab) 650 mg Q4H PRN PO MILD PAIN LEVEL 1-3; Start 08/30 at 14:30 Atorvastatin Calcium (Lipitor) 20 mg QHS PO Last administered on 08/30/17 22: 02; Admin Dose 20 MG; Start 08/30/17 at 21:00 Digoxin (Digoxin) 0.125 mg DAILY PO Last administered on 08/31/17 09:28; Admin Dose 0.125 MG; Start 08/30/17 at 17:00 Saccharomyces Boulardii (Florastor) 250 mg BID PO Last administered on 09:28; Admin Dose 250 MG; Start 08/30/17 at 21:00 Heparin Sodium (Porcine) (Heparin (5000 Units/0.5 ml)) 5,000 unit BID SC Last administered on 08/31/17 09:40; Admin Dose 5,000 UNIT; Start 08/30/17 at 21: 00 Collagenase 1 applic 1 applic BID TOP Last administered on 08/31/17 09:31; Admin Dose 1 APPLIC; Start 08/31/17 at 09:00 Vancomycin HCl (Vancocin) 250 ml @ 125 mls/hr Q12H IVPB Last administered on 08/31/17 14:00; Admin Dose 125 MLS/HR; Start 08/31/17 at 12:00 Miscellaneous Information (*Rx Drug Level Order Reminder*) VANCO TROUGH @ 1, 200 ON ... ONCE ONCE XX ; Start 09/01/17 at 12:00; Stop 09/01/17 at 12:01 Acetaminophen/ Hydrocodone Bitart ([place] (5/325)) 1 tab Q4H PRN GTB MODERATE PAIN LEVEL 4-6 Last administered on 08/31/17 14:02; Admin Dose 1 TAB; Start 08/31/17 at 11:30 Assessment/Plan Chief Complaint/Hosp Course 72-year-old male with a history of Alzheimer disease dementia [facility] because of fever for the past 2 days and altered mental status. He was evaluated in the emergency room and thought to be septic and may have pneumonia. He is known to have GERD and aspiration pneumonia. During his last admission he was found to have severe urethral strictures. Attempts by the emergency room staff to insert a Lindsey catheter were not successful therefore a urological consultation was requested. I did do the dilatation with filiforms and followers and inserted a 14 [place] Lindsey catheter yesterday. urine was sent for culture and sensitivity and so far the culture is negative. For now keep the Lindsey catheter in place. Problems: BALAJI PERSAUD MD Aug 31, 2017 15:30
[2017-08-31 15:56] LABS: ABNORMAL IP MESSAGE 1; BASOPHILS % 0.1 % (0.0-2.0); EOSINOPHILS % 0.1 % (0.0-7.0); HEMATOCRIT 22.3 % (42.0-52.0); HEMOGLOBIN 7.2 g/dl (14.0-18.0); LYMPHOCYTES # 1.2 10^3/ul (0.8-2.9); LYMPHOCYTES % 10.6 % (15.0-51.0); MEAN CORPUSCULAR HEMOGLOBIN 31.4 pg (29.0-33.0); MEAN CORPUSCULAR HGB CONC 32.3 g/dl (32.0-37.0); MEAN CORPUSCULAR VOLUME 97.4 fl (82.0-101.0); MEAN PLATELET VOLUME 13.2 fl (7.4-10.4); MONOCYTE # 1.2 10^3/ul (0.3-0.9); MONOCYTES % 10.5 % (0.0-11.0); NEUTROPHIL # 9.1 10^3/ul (1.6-7.5); NEUTROPHILS % 78.4 % (39.0-77.0); PLATELET COUNT 175 10^3/UL (140-415); POSITIVE DIFF @See below; RED BLOOD COUNT 2.29 10^6/ul (4.70-6.10); WHITE BLOOD COUNT 11.6 10^3/ul (4.8-10.8)
[2017-08-31 16:29] LABS: IRON 11 ug/dl (35-150)
[2017-08-31 16:38] LABS: TOTAL IRON BINDING CAPACITY 168 ug/dl (241-421)
--- NOTE | 2017-08-31 18:11 | CONS ---
DATE OF ADMISSION: 08/30/2017 DATE OF CONSULTATION: 08/31/2017 TYPE OF CONSULTATION: Infectious Disease. REASON FOR CONSULTATION: Antibiotic management. HISTORY OF PRESENT ILLNESS: Rich Huber is a 72-year-old male with numerous problems who is being seen now for antibiotic management. His past problems include: 1. History of seizure disorders. 2. Chronic Alzheimer dementia. 3. Chronic dysphagia with history of aspiration. 4. GERD. 5. Benign prostatic hypertrophy with possible urethral obstruction. 6. Chronic paroxysmal atrial fibrillation. 7. Acute respiratory failure secondary to bilateral lobar pneumonia and secondary to aspiration pne umonia. Acutely, the patient comes in with altered mental status and severe sepsis, most likely secondary to aspiration pneumonia. He was admitted to the intensive care unit. He was pancultured and started on broad spectrum antibiotics. The patient also has COPD. In the past, he was intubated and succes sfully extubated. When he came to the emergency room, he was hypotensive and tachycardic, but he re sponded to fluid therapy. He responds now only to tactile stimulus. He is chronically on G-tube fe eding. His symptoms of fever and hypoxemia were noted this morning prior to transfer. PAST MEDICAL HISTORY: Operations as outlined. Status post G-tube placement, history of tracheostom y in the past. FAMILY HISTORY: Noncontributory. SOCIAL HISTORY: He [facility] in a [facility]. ALLERGIES: NONE TO PENICILLIN, SULFA OR FOODS. MEDICATIONS: Per chart. REVIEW OF SYSTEMS: Noncontributory. PHYSICAL EXAMINATION: VITAL SIGNS: The patient has a temperature of 102 degrees. SKIN: Without generalized rash. HEENT: Within normal limits. NECK: Supple. LYMPH NODES: None palpable. CHEST: Decreased breath sounds at the bases. HEART: Without murmur or gallop. ABDOMEN: Soft, nontender, without organosplenomegaly or masses. G-tube in place. EXTREMITIES: Without cyanosis, clubbing, or edema. RECTAL AND GENITAL: Deferred. NEUROLOGIC: No focal neurological abnormality. HOSPITAL COURSE: White count on the was 12.6, H and H of 7 and 21.7, platelet count 176,000, B UN and creatinine 28/1.02. The patient is currently on vancomycin and Levaquin. Urine cultures are negative. Blood cultures are negative. MRSA screen is negative, or pending at least. A PICC line was inserted on the in the left arm. His chest x-ray shows right basilar interstitial opaciti es, may reflect atelectasis or pneumonia, improved when compared to the prior exam on the . Has pulmonary vascular congestion and interstitial edema, no significant interval change. Aortic ather osclerosis. The patient was seen by Dr. Stoddard, also by Dr. Hicks, who noted systemic inflammatory response, respiratory failure, urethral stricture, acute renal injury. We will continue him on cur rent therapy. Dictated By: DAT MOREAU MD, JD/NTS Conf#: [id number] DID#: [id number] CC: EJRE HAGAN MD;*EndCC*
[2017-08-31] MEDS ORDERED: NA PHOSPHATE/BIPHOS 133 ML ENEMA PR ONE (18:30)
[2017-08-31] MEDS: ATORVASTATIN 20 MG TAB PO SCH (22:16)
[2017-09-01] VITALS (24 sets, daily range): BP systolic 99–133; BP diastolic 55–101; PULSE 71–91; RESP 11–22
[2017-09-01] MEDS: GUAIFENESIN/DM (SR) TAB PO SCH ×3 (00:12→21:00)
[2017-09-01] MEDS: VANCOMYCIN 1 GM in NS 250 ML IVPB SCH ×2 (00:12→13:03)
[2017-09-01] MEDS: ALBUTEROL/IPRATROPIUM (NEB) 3 ML AMP INH SCH ×4 (01:31→19:57)
[2017-09-01 07:01] LABS: ABNORMAL IP MESSAGE 1; BASOPHILS % 0.2 % (0.0-2.0); EOSINOPHILS % 0.3 % (0.0-7.0); HEMATOCRIT 23.3 % (42.0-52.0); HEMOGLOBIN 7.7 g/dl (14.0-18.0); LYMPHOCYTES # 1.1 10^3/ul (0.8-2.9); LYMPHOCYTES % 11.9 % (15.0-51.0); MEAN CORPUSCULAR VOLUME 96.7 fl (82.0-101.0); MEAN PLATELET VOLUME 13.4 fl (7.4-10.4); MONOCYTE # 0.8 10^3/ul (0.3-0.9); MONOCYTES % 8.7 % (0.0-11.0); NEUTROPHIL # 6.9 10^3/ul (1.6-7.5); NEUTROPHILS % 78.7 % (39.0-77.0); PLATELET COUNT 166 10^3/UL (140-415); POSITIVE DIFF @See below; RED BLOOD COUNT 2.41 10^6/ul (4.70-6.10); RED CELL DISTRIBUTION WIDTH 19.9 % (11.5-14.5); WHITE BLOOD COUNT 8.8 10^3/ul (4.8-10.8)
[2017-09-01 07:26] LABS: CALCIUM 7.9 mg/dl (8.4-10.2); CREATININE 0.89 mg/dl (0.61-1.24); MAGNESIUM 2.2 mg/dl (1.7-2.5); PHOSPHORUS 2.2 mg/dl (2.5-4.9); POTASSIUM 3.9 mmol/L (3.5-5.1)
[2017-09-01] MEDS ORDERED: POTASSIUM PHOSPHATE 15 MM in SOD CHLORIDE 0.9% 250 ML IVPB ONE (08:00)
--- NOTE | 2017-09-01 08:07 | PN ---
DATE: 09/01/2017 SUBJECTIVE: The patient remains in a series stable condition. No acute events overnight. No hemop tysis, hematemesis or hematochezia. OBJECTIVE: VITAL SIGNS: Blood pressure is 114/58, respirations 11, pulse 74, temperature 98.5. HEENT: Head is normocephalic. NECK: Supple. HEART: Regular rate. LUNGS: Show diminished breath sounds at base. ABDOMEN: Soft, nontender to palpation without rebound or guarding. EXTREMITIES: Negative for clubbing or cyanosis. No edema. DERMATOLOGIC: No rashes. MUSCULOSKELETAL: No joint effusions. NEUROLOGIC: No focal deficits. LABORATORY DATA: Shows white count 8.8, hemoglobin 7.7, hematocrit 23.3, platelet count is 166. So dium 144, potassium 3.9, BUN 24, creatinine 0.89, phosphorus 2.2, calcium 7.9. Patient's ABG has be en reviewed, shows pH 7.50, pCO2 of 28.7. IMAGING: Chest x-ray 08/31/2017 shows findings of pulmonary vascular congestion. The patient's repeat renal ultrasound is pending. ASSESSMENT AND PLAN: 1. Nonoliguric acute kidney injury with previous baseline creatinine of 1 to 1.5 mg/dL. Etiology o f acute kidney injury is secondary to obstructive uropathy. The patient's renal function has improv ed after Lindsey catheter was placed. At this point, will continue current treatment plan, supportive care, renally dose all meds. 2. Bilateral hydroureteronephrosis. The patient is status post Lindsey catheter placement with good urinary output. We will also follow up with Urology consider a repeat renal ultrasound. 3. Anemia. Monitor hemoglobin and hematocrit levels. The patient is status post blood transfusion . Continue to monitor. 4. Mineral bone disorder: Monitor calcium and phosphorus levels. 5. Acute diastolic heart failure. The patient has noted pulmonary congestion. Will discontinue IV fluids. Continue diuretic therapy. 6. Severe sepsis, aspiration pneumonia. Continue current antibiotic regimen. 7. Dysphagia. Status post PEG tube feeding. 8. Acute encephalopathy. No ____ on type of Alzheimer dementia. Etiology is toxic metabolic. Con tinue to monitor. 9. Gastrointestinal and deep venous thrombosis prophylaxis. Dictated By: LEVY PHAM/HASMUKH Conf#: [id number] DID#: [id number] CC: JERE HAGAN MD;*[facility]*
[2017-09-01] MEDS: FUROSEMIDE 40 MG INJ IV SCH (08:44)
[2017-09-01] MEDS: DIGOXIN 0.125 MG TAB PO SCH (08:44)
[2017-09-01] MEDS: SACCHAROMYCES BOULARDII 250 MG CAP PO SCH ×2 (08:44→21:19)
[2017-09-01] MEDS: LEVOFLOXACIN 500MG/D5W (PMX) 100 ML IVPB SCH (08:44)
[2017-09-01] MEDS: HEPARIN 5,000 UNIT/0.5 ML VIAL SC SCH ×2 (09:00→21:24)
[2017-09-01] MEDS: COLLAGENASE 30 GM TUBE TOP SCH ×2 (09:06→21:19)
--- NOTE | 2017-09-01 09:49 | RADRPT ---
AMENDMENT: 09/01/2017 10:32:14 AM Isrrael Lazaro M.d Comparison: 06/12/2017 In comparison with prior exam, findings are not significantly changed. PROCEDURE: US Renal. CLINICAL INDICATION: Acute renal insufficiency. TECHNIQUE: Multiple sonographic images of the kidneys and bladder were obtained. Evaluation of th e kidneys and bladder was performed using a curved array transducer. The images were reviewed on a high-resolution PACS workstation. COMPARISON: No prior studies are available for comparison. FINDINGS: The right kidney measures 11.2 cm in length. The left kidney measures 11.9 cm in length. There are m ultiple bilateral renal cysts present. Parapelvic cysts are seen in the left kidney. Questionable di latation of the left renal pelvis versus parapelvic cyst is seen. . There is no evidence of right-si ded hydronephrosis. .There is no mass, calculus, or obstructive uropathy. The bladder is mildly thi ck-walled and partially decompressed with balloon tip Lindsey catheter in the lumen. . The visualized portions of the aorta and inferior vena cava are unremarkable. IMPRESSION: Multiple bilateral renal cysts. Questionable left parapelvic renal cysts versus dilatation of the left renal pelvis. Mild diffuse wall thickening of the bladder with balloon tip Lindsey catheter in place. RPTAT: QQ .Isrrael Lazaro MD, Date Time Electronically viewed and signed by .Isrrael Lazaro MD, on 09/01/2017 10:32 .L/
--- NOTE | 2017-09-01 10:16 | CONS ---
Date/Time of Note Date/Time of Note DATE: 09/01/17 TIME: 10:12 Consult Date/Type/Reason Admit Date/Time Aug 30, 2017 at 14:08 Initial Consult Date 08/30/17 Type of Consultation: Pulmonary Ordering Provider: JERE HAGAN Subjective Patient remains stable this morning. More alert no respiratory distress. Objective Vital Signs Date Time Temp Pulse Resp B/P Pulse Ox O2 Delivery O2 Flow Rate FiO2 09/01/17 09:00 83 22 128/74 99 Room Air 09/01/17 08:02 21 09/01/17 08:00 99.3 08/31/17 00:30 8.0 Intake and Output 08/31/17 08/31/17 09/01/17 15:00 23:00 07:00 Intake Total 1440 ml 775 ml 940 ml Output Total 1840 ml 405 ml 450 ml Balance -400 ml 370 ml 490 ml Exam PHYSICAL EXAMINATION: GENERAL: Chronically ill appearing gentleman, comfortable at rest, no acute distress. VITAL SIGNS: NECK: Supple, no JVD or lymphadenopathy. CARDIAC: S1, S2, no added sounds or murmurs. CHEST: Diminished air entry bilaterally. ABDOMEN: Soft, nontender. No guarding or rebound. EXTREMITIES: No cyanosis, clubbing, or edema. NEUROLOGIC: Generalized weakness. Results/Medications Result Diagram: 09/01/17 0630 09/01/17 0630 Results 24 hrs Laboratory Tests Test 08/31/17 15:48 08/31/17 15:49 09/01/17 06:30 Iron Level 11 L Total Iron Binding Capacity 168 L Percent Iron Saturation 7 L Ferritin 812.0 H White Blood Count 11.6 H 8.8 # Red Blood Count 2.29 L 2.41 L Hemoglobin 7.2 L 7.7 L Hematocrit 22.3 L 23.3 L Mean Corpuscular Volume 97.4 96.7 Mean Corpuscular Hemoglobin 31.4 32.0 Mean Corpuscular Hemoglobin Concent 32.3 33.0 Red Cell Distribution Width 19.0 H 19.9 H Platelet Count 175 166 Mean Platelet Volume 13.2 H 13.4 H Neutrophils % 78.4 H 78.7 H Lymphocytes % 10.6 L 11.9 L Monocytes % 10.5 8.7 Eosinophils % 0.1 0.3 Basophils % 0.1 0.2 Nucleated Red Blood Cells % 0.0 0.0 Neutrophils # 9.1 H 6.9 Lymphocytes # 1.2 1.1 Monocytes # 1.2 H 0.8 Eosinophils # 0.0 0.0 Basophils # 0.0 0.0 Nucleated Red Blood Cells # 0.0 0.0 Sodium Level 144 Potassium Level 3.9 Chloride Level 109 Carbon Dioxide Level 28 Anion Gap 11 Blood Urea Nitrogen 24 H Creatinine 0.89 Glucose Level 106 Calcium Level 7.9 L Phosphorus Level 2.2 L Magnesium Level 2.2 Medications Current Medications IV Flush (NS 10 ml) 10 ml PRN PRN IV IV PROTOCOL; Start 08/30/17 at 13:30 Furosemide 40 mg 40 mg DAILY IV Last administered on 09/01/17 08:44; Admin Dose 40 MG; Start 08/30/17 at 17:00; Stop 09/02/17 at 16:59 Levofloxacin/ Dextrose (Levaquin 500mg/ D5W 100 ml (Pmx)) 100 ml @ 100 mls/hr Q24H IVPB Last administered on 09/01/17 08:44; Admin Dose 100 MLS/HR; Start 08/31/17 at 09:30 Acetaminophen (Tylenol Tab) 650 mg Q4H PRN PO MILD PAIN LEVEL 1-3 Last administered on 08/31/17 22:45; Admin Dose 650 MG; Start 08/30/17 at 14:30 Atorvastatin Calcium (Lipitor) 20 mg QHS PO Last administered on 08/31/17 22: 16; Admin Dose 20 MG; Start 08/30/17 at 21:00 Digoxin (Digoxin) 0.125 mg DAILY PO Last administered on 09/01/17 08:44; Admin Dose 0.125 MG; Start 08/30/17 at 17:00 Saccharomyces Boulardii (Florastor) 250 mg BID PO Last administered on 08:44; Admin Dose 250 MG; Start 08/30/17 at 21:00 Heparin Sodium (Porcine) (Heparin (5000 Units/0.5 ml)) 5,000 unit BID SC Last administered on 08/31/17 22:22; Admin Dose 5,000 UNIT; Start 08/30/17 at 21: 00 Collagenase 1 applic 1 applic BID TOP Last administered on 09/01/17 09:06; Admin Dose 1 APPLIC; Start 08/31/17 at 09:00 Vancomycin HCl (Vancocin) 250 ml @ 125 mls/hr Q12H IVPB Last administered on 09/01/17 00:12; Admin Dose 125 MLS/HR; Start 08/31/17 at 12:00 Miscellaneous Information (*Rx Drug Level Order Reminder*) VANCO TROUGH @ 1, 100 ON ... ONCE ONCE XX ; Start 09/01/17 at 11:00; Stop 09/01/17 at 11:01 Acetaminophen/ Hydrocodone Bitart ([place] (5/325)) 1 tab Q4H PRN GTB MODERATE PAIN LEVEL 4-6 Last administered on 08/31/17 14:02; Admin Dose 1 TAB; Start 08/31/17 at 11:30 Guaifenesin/ Dextromethorphan 1 tab 1 tab BID PO Last administered on 00:12; Admin Dose 1 TAB; Start 08/31/17 at 23:00 Potassium Phosphate/Sodium Chloride (K Phos (Mm)/NS) 255 ml @ 63.75 mls/ hr ONCE ONCE IVPB ; Start 09/01/17 at 08:00; Stop 09/01/17 at 11:59 Assessment/Plan Chief Complaint/Hosp Course IMPRESSION AND PLAN: 1. Likely healthcare-associated pneumonia. 2. Hypoxemic respiratory failure. 3. History of dementia. 4. History of dysphagia. 5. History of hypertension. The patient will require 1. Continued broad spectrum antibiotics pending cultures. 2. IV fluids. 3. Aspiration precautions. 4. Pulmonary toilet. 5. DVT and GI prophylaxis. 6. Tube feeding as tolerated Stable for transfer consider MedSurg. Problems: LEIGHA DE LEÓN MD, [facility] Sep 01, 2017 10:16
--- NOTE | 2017-09-01 10:25 | PN ---
Date/Time of Note Date/Time of Note DATE: 09/01/17 TIME: 10:23 Assessment/Plan VTE Prophylaxis VTE Prophylaxis Intervention: heparin Lines/Catheters IV C[facility] Type [facility]from [facility] PICC Line Central line still needed: Yes Urinary Cath still in place: Yes Reason Cath still needed: urinary retention, other (indicate) Assessment/Plan Assessment/Plan 72-year-old male sent from custodial facility because of altered mentation managed as follows 1. Severe sepsis with impending septic shock likely secondary to aspiration pneumonia causing #2: much improved 2. Altered mentation secondary to #1: back to baseline 3. Bilateral lobar pneumonia secondary to aspiration: improving 4. Obstructive DEEP fron chronic Urethral strictures improved with adkins placement 5. Acute respiratory failure secondary to #3: resolved 6. Chronic paroxysmal atrial fibrillation 7. Chronic dysphagia with history of aspiration s/p peg 8. Chronic Alzheimer's dementia 9. History of GERD as well as BPH with possible urethral obstruction PLAN: * ok to downgrade to med surg * Tube feeds resumed, will discuss with GI to see if there's anything we can do to reduce aspiration * add reglan and good bowel regimen to meds * Further interventions will depend on his clinical course * Prophylaxis : heparin and PPI Possible transfer back to SNF in a day or 2 if he remains stable Subjective 24 Hr Interval Summary Free Text/Dictation patient much improved from my last review alert, yelling, confused Exam/Review of Systems Vital Signs Vitals Vital Signs Date Time Temp Pulse Resp B/P Pulse Ox O2 Delivery O2 Flow Rate FiO2 09/01/17 09:00 83 22 128/74 99 Room Air 09/01/17 08:02 21 09/01/17 08:00 99.3 08/31/17 00:30 8.0 Intake and Output 08/31/17 08/31/17 09/01/17 15:00 23:00 07:00 Intake Total 1440 ml 775 ml 940 ml Output Total 1840 ml 405 ml 450 ml Balance -400 ml 370 ml 490 ml Exam Constitutional: alert (alert, yelling, confused) Neck: non-tender, supple, loud aspiration like sounds, will require frequent suctioning Respiratory: normal air movement, other (Right basilar crackles), stable on room air Cardiovascular: nl pulses, regular rate and rhythm Gastrointestinal: nl liver, spleen, non-tender, soft Results Result Diagram: 09/01/17 0630 09/01/17 0630 Results 24 hrs Laboratory Tests Test 08/31/17 15:48 08/31/17 15:49 09/01/17 06:30 Iron Level 11 L Total Iron Binding Capacity 168 L Percent Iron Saturation 7 L Ferritin 812.0 H White Blood Count 11.6 H 8.8 # Red Blood Count 2.29 L 2.41 L Hemoglobin 7.2 L 7.7 L Hematocrit 22.3 L 23.3 L Mean Corpuscular Volume 97.4 96.7 Mean Corpuscular Hemoglobin 31.4 32.0 Mean Corpuscular Hemoglobin Concent 32.3 33.0 Red Cell Distribution Width 19.0 H 19.9 H Platelet Count 175 166 Mean Platelet Volume 13.2 H 13.4 H Neutrophils % 78.4 H 78.7 H Lymphocytes % 10.6 L 11.9 L Monocytes % 10.5 8.7 Eosinophils % 0.1 0.3 Basophils % 0.1 0.2 Nucleated Red Blood Cells % 0.0 0.0 Neutrophils # 9.1 H 6.9 Lymphocytes # 1.2 1.1 Monocytes # 1.2 H 0.8 Eosinophils # 0.0 0.0 Basophils # 0.0 0.0 Nucleated Red Blood Cells # 0.0 0.0 Sodium Level 144 Potassium Level 3.9 Chloride Level 109 Carbon Dioxide Level 28 Anion Gap 11 Blood Urea Nitrogen 24 H Creatinine 0.89 Glucose Level 106 Calcium Level 7.9 L Phosphorus Level 2.2 L Magnesium Level 2.2 Medications Medications Current Medications IV Flush (NS 10 ml) 10 ml PRN PRN IV IV PROTOCOL; Start 08/30/17 at 13:30 Furosemide 40 mg 40 mg DAILY IV Last administered on 09/01/17 08:44; Admin Dose 40 MG; Start 08/30/17 at 17:00; Stop 09/02/17 at 16:59 Levofloxacin/ Dextrose (Levaquin 500mg/ D5W 100 ml (Pmx)) 100 ml @ 100 mls/hr Q24H IVPB Last administered on 09/01/17 08:44; Admin Dose 100 MLS/HR; Start 08/31/17 at 09:30 Acetaminophen (Tylenol Tab) 650 mg Q4H PRN PO MILD PAIN LEVEL 1-3 Last administered on 08/31/17 22:45; Admin Dose 650 MG; Start 08/30/17 at 14:30 Atorvastatin Calcium (Lipitor) 20 mg QHS PO Last administered on 08/31/17 22: 16; Admin Dose 20 MG; Start 08/30/17 at 21:00 Digoxin (Digoxin) 0.125 mg DAILY PO Last administered on 09/01/17 08:44; Admin Dose 0.125 MG; Start 08/30/17 at 17:00 Saccharomyces Boulardii (Florastor) 250 mg BID PO Last administered on 08:44; Admin Dose 250 MG; Start 08/30/17 at 21:00 Heparin Sodium (Porcine) (Heparin (5000 Units/0.5 ml)) 5,000 unit BID SC Last administered on 08/31/17 22:22; Admin Dose 5,000 UNIT; Start 08/30/17 at 21: 00 Collagenase 1 applic 1 applic BID TOP Last administered on 09/01/17 09:06; Admin Dose 1 APPLIC; Start 08/31/17 at 09:00 Vancomycin HCl (Vancocin) 250 ml @ 125 mls/hr Q12H IVPB Last administered on 09/01/17 00:12; Admin Dose 125 MLS/HR; Start 08/31/17 at 12:00 Miscellaneous Information (*Rx Drug Level Order Reminder*) VANCO TROUGH @ 1, 100 ON ... ONCE ONCE XX ; Start 09/01/17 at 11:00; Stop 09/01/17 at 11:01 Acetaminophen/ Hydrocodone Bitart ([place] (5/325)) 1 tab Q4H PRN GTB MODERATE PAIN LEVEL 4-6 Last administered on 08/31/17 14:02; Admin Dose 1 TAB; Start 08/31/17 at 11:30 Guaifenesin/ Dextromethorphan 1 tab 1 tab BID PO Last administered on 00:12; Admin Dose 1 TAB; Start 08/31/17 at 23:00 Potassium Phosphate/Sodium Chloride (K Phos (Mm)/NS) 255 ml @ 63.75 mls/ hr ONCE ONCE IVPB ; Start 09/01/17 at 08:00; Stop 09/01/17 at 11:59 JERE HAGAN Sep 01, 2017 10:25
[2017-09-01] MEDS: POLYETHYLENE GLYCOL 17 GM PACKET GTB SCH (10:30)
[2017-09-01] MEDS ORDERED: PENDING SANTYL ORDER FOR WOUND CARE XX PRN (12:00)
[2017-09-01] MEDS: METOCLOPRAMIDE 5 MG TAB PEG SCH ×2 (13:04→21:19)
--- NOTE | 2017-09-01 15:32 | CONS ---
Date/Time of Note Date/Time of Note DATE: 09/01/17 TIME: 15:31 Assessment/Plan Assessment/Plan Chief Complaint/Hosp Course ID PROGRESS NOTE CURRENT ABX: =>VANCO IV + LEVAQUIN 24H INTERVAL SUMMARY * Awake w/dementia moaning, (+)Laryngeal & chest congested cough -- weak cough not able to clear retained secretions * No fevers, WBC normalized, much improved w/ABX pending TNS out of ICU * BCX (-); Urine Cx (-) -> UA trace LeukEsterase w/pyuria * CXR (+)PNA * 08/30/17 CT ABD/PELVIS IMPRESSION: 1. Consolidation within the dependent portions of both lower lobes, consistent with aspiration or pneumonia. 2. Moderate bilateral hydroureteronephrosis with a distended urinary bladder. Differential considerations include neurogenic bladder and bladder outlet obstruction. 3. Distended rectum with stool measuring 8.6 cm with a moderate volume of stool elsewhere throughout the colon, suggestive of rectal fecal impaction. 4. Small right inguinal hernia containing a nonobstructed loop of distal ileum. 5. Descending colonic diverticulosis. 6. Multivessel coronary artery calcifications and atherosclerotic changes of the aorta. 7. Mild T12 vertebral body compression deformity, age indeterminate. PHYSICAL EXAMINATION: GENERAL: 72 yo elder M, sleeping HEENT: AT, NC, anicteric NECK: Trach midline CHEST: Equal chest rise bilaterally, without dyspnea on observation HEART: S1S2 distant ABDOMEN: SOFT, peg : FC EXT: warm, no edema SKIN: No rash, no diaphoresis ID ASSESSMENT: 72 yo M w/PMHx AZs DEMENTIA admit from SNF with: 1. Severe sepsis with impending septic shock likely secondary to aspiration pneumonia causing #2: much improved 2. Altered mentation secondary to #1 => RESOLVED 3. Bilateral lobar pneumonia secondary to aspiration * (+)Laryngeal & chest congested cough -- weak cough not able to clear retained secretions 4. Obstructive DEEP fron chronic Urethral strictures/BPH -> S/P Urethral Dilatation by Dr. Solis 5. Acute respiratory failure secondary to #3: => RESOLVED 6. Chronic paroxysmal atrial fibrillation 7. Chronic dysphagia with history of aspiration s/p peg 8. History of GERD 9. Fecal impaction on admission 10. Descending colon diverticulosis, no diverticulitis 11. Small right inguinal hernia containing a nonobstructed loop of distal ileum. 12. Multivessel coronary artery calcifications and atherosclerotic changes of the aorta. 13. Mild T12 vertebral body compression deformity, age indeterminate. (-)MRSA INVASIVES: PIV ABX ALLERGY: PCN/Neomycin CURRENT ABX: =>=>VANCO IV + LEVAQUIN ID RECOMMENDATIONS/PLAN: 1. Continue current ABX over the weekend -> Once improved, back to SNF on ABX via Peg . Problems: Consultation Date/Type/Reason Admit Date/Time Aug 30, 2017 at 14:08 Initial Consult Date 08/30/17 Type of Consultation: id Referring Provider: JERE HAGAN Exam/Review of Systems Vital Signs Vitals Vital Signs Date Time Temp Pulse Resp B/P Pulse Ox O2 Delivery O2 Flow Rate FiO2 09/01/17 15:00 84 20 106/60 91 Room Air 09/01/17 14:14 21 09/01/17 12:00 99.1 08/31/17 00:30 8.0 Intake and Output 08/31/17 08/31/17 09/01/17 15:00 23:00 07:00 Intake Total 1440 ml 775 ml 940 ml Output Total 1840 ml 405 ml 450 ml Balance -400 ml 370 ml 490 ml Results Result Diagram: 09/01/17 0630 09/01/17 0630 Results 24 hrs Laboratory Tests Test 08/31/17 15:48 08/31/17 15:49 09/01/17 06:30 09/01/17 11:07 Iron Level 11 L Total Iron Binding Capacity 168 L Percent Iron Saturation 7 L Ferritin 812.0 H White Blood Count 11.6 H 8.8 # Red Blood Count 2.29 L 2.41 L Hemoglobin 7.2 L 7.7 L Hematocrit 22.3 L 23.3 L Mean Corpuscular Volume 97.4 96.7 Mean Corpuscular Hemoglobin 31.4 32.0 Mean Corpuscular Hemoglobin Concent 32.3 33.0 Red Cell Distribution Width 19.0 H 19.9 H Platelet Count 175 166 Mean Platelet Volume 13.2 H 13.4 H Neutrophils % 78.4 H 78.7 H Lymphocytes % 10.6 L 11.9 L Monocytes % 10.5 8.7 Eosinophils % 0.1 0.3 Basophils % 0.1 0.2 Nucleated Red Blood Cells % 0.0 0.0 Neutrophils # 9.1 H 6.9 Lymphocytes # 1.2 1.1 Monocytes # 1.2 H 0.8 Eosinophils # 0.0 0.0 Basophils # 0.0 0.0 Nucleated Red Blood Cells # 0.0 0.0 Sodium Level 144 Potassium Level 3.9 Chloride Level 109 Carbon Dioxide Level 28 Anion Gap 11 Blood Urea Nitrogen 24 H Creatinine 0.89 Glucose Level 106 Calcium Level 7.9 L Phosphorus Level 2.2 L Magnesium Level 2.2 Vancomycin Level Trough 14.1 Medications Medications Current Medications IV Flush (NS 10 ml) 10 ml PRN PRN IV IV PROTOCOL; Start 08/30/17 at 13:30 Furosemide 40 mg 40 mg DAILY IV Last administered on 09/01/17 08:44; Admin Dose 40 MG; Start 08/30/17 at 17:00; Stop 09/02/17 at 16:59 Levofloxacin/ Dextrose (Levaquin 500mg/ D5W 100 ml (Pmx)) 100 ml @ 100 mls/hr Q24H IVPB Last administered on 09/01/17 08:44; Admin Dose 100 MLS/HR; Start 08/31/17 at 09:30 Acetaminophen (Tylenol Tab) 650 mg Q4H PRN PO MILD PAIN LEVEL 1-3 Last administered on 08/31/17 22:45; Admin Dose 650 MG; Start 08/30/17 at 14:30 Atorvastatin Calcium (Lipitor) 20 mg QHS PO Last administered on 08/31/17 22: 16; Admin Dose 20 MG; Start 08/30/17 at 21:00 Digoxin (Digoxin) 0.125 mg DAILY PO Last administered on 09/01/17 08:44; Admin Dose 0.125 MG; Start 08/30/17 at 17:00 Saccharomyces Boulardii (Florastor) 250 mg BID PO Last administered on 08:44; Admin Dose 250 MG; Start 08/30/17 at 21:00 Heparin Sodium (Porcine) (Heparin (5000 Units/0.5 ml)) 5,000 unit BID SC Last administered on 08/31/17 22:22; Admin Dose 5,000 UNIT; Start 08/30/17 at 21: 00 Collagenase 1 applic 1 applic BID TOP Last administered on 09/01/17 09:06; Admin Dose 1 APPLIC; Start 08/31/17 at 09:00 Vancomycin HCl (Vancocin) 250 ml @ 125 mls/hr Q12H IVPB Last administered on 09/01/17 13:03; Admin Dose 125 MLS/HR; Start 08/31/17 at 12:00 Acetaminophen/ Hydrocodone Bitart ([place] (5/325)) 1 tab Q4H PRN GTB MODERATE PAIN LEVEL 4-6 Last administered on 08/31/17 14:02; Admin Dose 1 TAB; Start 08/31/17 at 11:30 Guaifenesin/ Dextromethorphan (Mucinex Dm) 1 tab BID PO Last administered on 10:50; Admin Dose 1 TAB; Start 08/31/17 at 23:00 Metoclopramide HCl (Reglan) 5 mg TID PEG Last administered on 09/01/17 13:04 ; Admin Dose 5 MG; Start 09/01/17 at 13:00 Polyethylene Glycol (Miralax) 17 gm DAILY GTB ; Start 09/01/17 at 10:30 Miscellaneous Information (Pending [facility] Order For Wound Care) This patient bryant... PRN PRN XX WOUND CARE; Start 09/01/17 at 12:00 TITI BOWLING NP Sep 01, 2017 15:32
[2017-09-01] MEDS: ATORVASTATIN 20 MG TAB PO SCH (21:19)
[2017-09-02] VITALS: BP 117/66; PULSE 84; RESP 19
[2017-09-02] MEDS: VANCOMYCIN 1 GM in NS 250 ML IVPB SCH ×2 (01:46→12:53)
[2017-09-02 03:03] VITALS: BP 130/70; RESP 16
[2017-09-02 06:12] LABS: ABNORMAL IP MESSAGE 1; BASOPHILS % 0.4 % (0.0-2.0); EOSINOPHILS # 0.1 10^3/ul (0.0-0.5); EOSINOPHILS % 1.9 % (0.0-7.0); HEMATOCRIT 24.7 % (42.0-52.0); HEMOGLOBIN 8.1 g/dl (14.0-18.0); LYMPHOCYTES # 1.5 10^3/ul (0.8-2.9); LYMPHOCYTES % 20.7 % (15.0-51.0); MEAN CORPUSCULAR HEMOGLOBIN 31.4 pg (29.0-33.0); MEAN CORPUSCULAR HGB CONC 32.8 g/dl (32.0-37.0); MEAN CORPUSCULAR VOLUME 95.7 fl (82.0-101.0); MEAN PLATELET VOLUME 13.8 fl (7.4-10.4); MONOCYTE # 0.7 10^3/ul (0.3-0.9); MONOCYTES % 9.9 % (0.0-11.0); NEUTROPHIL # 4.9 10^3/ul (1.6-7.5); NEUTROPHILS % 66.7 % (39.0-77.0); PLATELET COUNT 237 10^3/UL (140-415); POSITIVE DIFF @See below; RED BLOOD COUNT 2.58 10^6/ul (4.70-6.10); RED CELL DISTRIBUTION WIDTH 19.6 % (11.5-14.5); WHITE BLOOD COUNT 7.3 10^3/ul (4.8-10.8)
[2017-09-02 06:54] LABS: MAGNESIUM 2.1 mg/dl (1.7-2.5); PHOSPHORUS 2.8 mg/dl (2.5-4.9)
[2017-09-02 06:56] LABS: CALCIUM 8.1 mg/dl (8.4-10.2); CREATININE 0.91 mg/dl (0.61-1.24)
[2017-09-02 08:10] VITALS: BP 122/81; RESP 18
--- NOTE | 2017-09-02 08:42 | CONS ---
Date/Time of Note Date/Time of Note DATE: 09/02/17 TIME: 08:39 Consult Date/Type/Reason Admit Date/Time Aug 30, 2017 at 14:08 Initial Consult Date 08/30/17 Type of Consultation: Urology Reason for Consultation Urethral strictures and urinary tract infection Ordering Provider: JERE HAGAN Subjective Patient is not verbal and does not express any complaints Objective Vital Signs Date Time Temp Pulse Resp B/P Pulse Ox O2 Delivery O2 Flow Rate FiO2 09/02/17 08:10 98.9 72 18 122/81 93 09/02/17 00:00 Room Air 09/01/17 19:57 21 08/31/17 00:30 8.0 Intake and Output 09/01/17 09/01/17 09/02/17 15:00 23:00 07:00 Intake Total 1275.00 ml 540 ml 535 ml Output Total 2870 ml 300 ml 380 ml Balance -1595.00 ml 240 ml 155 ml Exam Abdomen is soft, the Lindsey catheter is draining clear urine Results/Medications Result Diagram: 09/02/17 0511 09/02/17 0511 Results 24 hrs Laboratory Tests Test 09/01/17 11:07 09/02/17 05:11 Vancomycin Level Trough 14.1 White Blood Count 7.3 Red Blood Count 2.58 L Hemoglobin 8.1 L Hematocrit 24.7 L Mean Corpuscular Volume 95.7 Mean Corpuscular Hemoglobin 31.4 Mean Corpuscular Hemoglobin Concent 32.8 Red Cell Distribution Width 19.6 H Platelet Count 237 # Mean Platelet Volume 13.8 H Neutrophils % 66.7 Lymphocytes % 20.7 Monocytes % 9.9 Eosinophils % 1.9 Basophils % 0.4 Nucleated Red Blood Cells % 0.0 Neutrophils # 4.9 Lymphocytes # 1.5 Monocytes # 0.7 Eosinophils # 0.1 Basophils # 0.0 Nucleated Red Blood Cells # 0.0 Sodium Level 140 Potassium Level 4.0 Chloride Level 107 Carbon Dioxide Level 27 Anion Gap 10 Blood Urea Nitrogen 21 H Creatinine 0.91 Glucose Level 112 Calcium Level 8.1 L Phosphorus Level 2.8 Magnesium Level 2.1 Medications Current Medications IV Flush (NS 10 ml) 10 ml PRN PRN IV IV PROTOCOL; Start 08/30/17 at 13:30 Furosemide 40 mg 40 mg DAILY IV Last administered on 09/01/17t 08:44; Admin Dose 40 MG; Start 08/30/17 at 17:00; Stop 09/02/17 at 16:59 Levofloxacin/ Dextrose (Levaquin 500mg/ D5W 100 ml (Pmx)) 100 ml @ 100 mls/hr Q24H IVPB Last administered on 09/01/17 08:44; Admin Dose 100 MLS/HR; Start 08/31/17 at 09:30 Acetaminophen (Tylenol Tab) 650 mg Q4H PRN PO MILD PAIN LEVEL 1-3 Last administered on 08/31/17 22:45; Admin Dose 650 MG; Start 08/30/17 at 14:30 Atorvastatin Calcium (Lipitor) 20 mg QHS PO Last administered on 09/01/17 21: 19; Admin Dose 20 MG; Start 08/30/17 at 21:00 Digoxin (Digoxin) 0.125 mg DAILY PO Last administered on 09/01/17 08:44; Admin Dose 0.125 MG; Start 08/30/17 at 17:00 Saccharomyces Boulardii (Florastor) 250 mg BID PO Last administered on 21:19; Admin Dose 250 MG; Start 08/30/17 at 21:00 Heparin Sodium (Porcine) (Heparin (5000 Units/0.5 ml)) 5,000 unit BID SC Last administered on 09/01/17 21:24; Admin Dose 5,000 UNIT; Start 08/30/17 at 21: 00 Collagenase 1 applic 1 applic BID TOP Last administered on 09/01/17 21:19; Admin Dose 1 APPLIC; Start 08/31/17 at 09:00 Vancomycin HCl (Vancocin) 250 ml @ 125 mls/hr Q12H IVPB Last administered on 09/02/17 01:46; Admin Dose 125 MLS/HR; Start 08/31/17 at 12:00 Acetaminophen/ Hydrocodone Bitart ([place] (5/325)) 1 tab Q4H PRN GTB MODERATE PAIN LEVEL 4-6 Last administered on 08/31/17 14:02; Admin Dose 1 TAB; Start 08/31/17 at 11:30 Guaifenesin/ Dextromethorphan (Mucinex Dm) 1 tab BID PO Last administered on 10:50; Admin Dose 1 TAB; Start 08/31/17 at 23:00 Metoclopramide HCl (Reglan) 5 mg TID PEG Last administered on 09/01/17t 21:19 ; Admin Dose 5 MG; Start 09/01/17 at 13:00 Polyethylene Glycol (Miralax) 17 gm DAILY GTB ; Start 09/01/17 at 10:30 Miscellaneous Information (Pending Santyl Order For Wound Care) This patient bryant... PRN PRN XX WOUND CARE; Start 09/01/17 at 12:00 Assessment/Plan Chief Complaint/Hosp Course 72-year-old male with a history of Alzheimer disease dementia was admitted from the group home because of fever for the past 2 days and altered mental status. He was evaluated in the emergency room and thought to be septic and may have pneumonia. He is known to have GERD and aspiration pneumonia. During his last admission he was found to have severe urethral strictures. Attempts by the emergency room staff to insert a Lindsey catheter were not successful therefore a urological consultation was requested. I did do the urethral dilatation with filiforms and followers and inserted a 14 [place] Lindsey catheter . urine culture and sensitivity is negative. For now keep the Lindsey catheter in place. Problems: BALAJI PERSAUD MD Sep 02, 2017 08:42
[2017-09-02] MEDS: GUAIFENESIN/DM (SR) TAB PO SCH ×2 (09:00→21:51)
[2017-09-02] MEDS: POLYETHYLENE GLYCOL 17 GM PACKET GTB SCH (09:00)
[2017-09-02] MEDS: FUROSEMIDE 40 MG INJ IV SCH (09:46)
[2017-09-02] MEDS: SACCHAROMYCES BOULARDII 250 MG CAP PO SCH ×2 (09:46→21:51)
[2017-09-02] MEDS: DIGOXIN 0.125 MG TAB PO SCH (09:46)
[2017-09-02] MEDS: METOCLOPRAMIDE 5 MG TAB PEG SCH ×3 (09:46→21:50)
[2017-09-02] MEDS: LEVOFLOXACIN 500MG/D5W (PMX) 100 ML IVPB SCH (09:46)
[2017-09-02] MEDS: HEPARIN 5,000 UNIT/0.5 ML VIAL SC SCH ×2 (10:01→21:54)
--- NOTE | 2017-09-02 10:10 | PN ---
DATE: 09/02/2017 SUBJECTIVE: The patient is stable. No events overnight. No fevers, chills, nausea, vomiting. The patient was transferred from ICU to telemetry. OBJECTIVE: VITAL SIGNS: Blood pressure is 130/70, respirations 16, pulse 78, temperature 98.8. HEENT: Head is normocephalic. NECK: Supple. HEART: Regular rate. LUNGS: Show diminished breath sounds at the base. ABDOMEN: Soft, nontender to palpation. No rebound or guarding. EXTREMITIES: Negative for clubbing, cyanosis. No edema. DERMATOLOGIC: No rashes. MUSCULOSKELETAL: No joint effusions. NEUROLOGIC: No change in exam. MEDICATIONS: The patient's medications were reviewed. LABORATORY DATA: Showed a white count 7.3, hemoglobin 8.1, platelet count is 237. Sodium 140, pota ssium 4.0, chloride 107, bicarbonate 27, BUN 10, creatinine 0.9. Calcium 8.1. ASSESSMENT AND PLAN: 1. Nonoliguric acute kidney injury with a baseline creatinine of 1.1 to 1.5 mg/dL. Etiology second umair to obstructive uropathy. The patient's renal function has improved. At this point, continue cu rrent treatment plan, supportive care, renally dose all meds. 2. Bilateral hydroureteronephrosis. The patient status post Lindsey catheter placement. Follow up w [facility] urology. 3. Anemia. Monitor hemoglobin and hematocrit levels. 4. Mineral bone disorder. Monitor calcium and phosphorus levels. 5. Acute diastolic heart failure. The patient is currently on diuretic therapy. Continue. 6. Severe sepsis secondary to pneumonia. Continue current antibiotic regimen. 7. Dysphagia. Continue tube feeding. 8. Acute encephalopathy on Alzheimer dementia. 9. Gastrointestinal, deep venous thrombosis prophylaxis. Dictated By: LEVY PHAM/NTS Conf#: [id number] DID#: [id number]
--- NOTE | 2017-09-02 11:07 | CONS ---
Date/Time of Note Date/Time of Note DATE: 09/02/17 TIME: 11:05 Assessment/Plan Assessment/Plan Additional Assessment/Plan Assessment and recommendations; 1. Patient admitted with bilateral pneumonia with significant clinical improvement. Currently on appropriate antibiotic regimen. 2. Dementia. 3. Chronic dysphagia, status post G-tube placement in the past. 4. Anemia. Continue current treatment. Consultation Date/Type/Reason Admit Date/Time Aug 30, 2017 at 14:08 Initial Consult Date 08/30/17 Type of Consultation: Pulmonary Referring Provider: JERE HAGAN 24 HR Interval Summary Free Text/Dictation Patient's condition is stable. Remains awake. Patient has remained hemodynamically stable. General exam; elderly male, awake, currently in no distress. Patient exhibiting signs of dementia. Exam/Review of Systems Vital Signs Vitals Vital Signs Date Time Temp Pulse Resp B/P Pulse Ox O2 Delivery O2 Flow Rate FiO2 09/02/17 08:10 98.9 72 18 122/81 93 09/02/17 00:00 Room Air 09/01/17 19:57 21 08/31/17 00:30 8.0 Intake and Output 09/01/17 09/01/17 09/02/17 15:00 23:00 07:00 Intake Total 1275.00 ml 540 ml 535 ml Output Total 2870 ml 300 ml 380 ml Balance -1595.00 ml 240 ml 155 ml Exam HEENT exam; supple neck, no JVD. No lymphadenopathy. Midline trachea. No thyromegaly. Patient has multiple carious teeth. Pupils are small bilaterally. Chest exam; scattered crackles bilaterally. S1-S2 audible, no murmurs. Regular rhythm. Abdomen exam; soft, G-tube in place. Nontender. No organomegaly. Bowel sounds audible. Extremity exam; no edema. APPLICATIONS SCIENTIST exam; patient is awake and appears quite demented. Follows minimal commands. Results Result Diagram: 09/02/1711 09/02/17 0511 Results 24 hrs Laboratory Tests Test 09/01/17 11:07 09/02/17 05:11 Vancomycin Level Trough 14.1 White Blood Count 7.3 Red Blood Count 2.58 L Hemoglobin 8.1 L Hematocrit 24.7 L Mean Corpuscular Volume 95.7 Mean Corpuscular Hemoglobin 31.4 Mean Corpuscular Hemoglobin Concent 32.8 Red Cell Distribution Width 19.6 H Platelet Count 237 # Mean Platelet Volume 13.8 H Neutrophils % 66.7 Lymphocytes % 20.7 Monocytes % 9.9 Eosinophils % 1.9 Basophils % 0.4 Nucleated Red Blood Cells % 0.0 Neutrophils # 4.9 Lymphocytes # 1.5 Monocytes # 0.7 Eosinophils # 0.1 Basophils # 0.0 Nucleated Red Blood Cells # 0.0 Sodium Level 140 Potassium Level 4.0 Chloride Level 107 Carbon Dioxide Level 27 Anion Gap 10 Blood Urea Nitrogen 21 H Creatinine 0.91 Glucose Level 112 Calcium Level 8.1 L Phosphorus Level 2.8 Magnesium Level 2.1 Medications Medications Current Medications IV Flush (NS 10 ml) 10 ml PRN PRN IV IV PROTOCOL; Start 08/30/17 at 13:30 Furosemide 40 mg 40 mg DAILY IV Last administered on 09/02/17 09:46; Admin Dose 40 MG; Start 08/30/17 at 17:00; Stop 09/02/17 at 16:59 Levofloxacin/ Dextrose (Levaquin 500mg/ D5W 100 ml (Pmx)) 100 ml @ 100 mls/hr Q24H IVPB Last administered on 09/02/17 09:46; Admin Dose 100 MLS/HR; Start 08/31/17 at 09:30 Acetaminophen (Tylenol Tab) 650 mg Q4H PRN PO MILD PAIN LEVEL 1-3 Last administered on 08/31/17 22:45; Admin Dose 650 MG; Start 08/30/17 at 14:30 Atorvastatin Calcium (Lipitor) 20 mg QHS PO Last administered on 09/01/17 21: 19; Admin Dose 20 MG; Start 08/30/17 at 21:00 Digoxin (Digoxin) 0.125 mg DAILY PO Last administered on 09/02/17 09:46; Admin Dose 0.125 MG; Start 08/30/17 at 17:00 Saccharomyces Boulardii (Florastor) 250 mg BID PO Last administered on 09:46; Admin Dose 250 MG; Start 08/30/17 at 21:00 Heparin Sodium (Porcine) (Heparin (5000 Units/0.5 ml)) 5,000 unit BID SC Last administered on 09/02/17 10:01; Admin Dose 5,000 UNIT; Start 08/30/17 at 21: 00 Collagenase 1 applic 1 applic BID TOP Last administered on 09/01/17 21:19; Admin Dose 1 APPLIC; Start 08/31/17 at 09:00 Vancomycin HCl (Vancocin) 250 ml @ 125 mls/hr Q12H IVPB Last administered on 09/02/17 01:46; Admin Dose 125 MLS/HR; Start 08/31/17 at 12:00 Acetaminophen/ Hydrocodone Bitart ([place] (5/325)) 1 tab Q4H PRN GTB MODERATE PAIN LEVEL 4-6 Last administered on 08/31/17 14:02; Admin Dose 1 TAB; Start 08/31/17 at 11:30 Guaifenesin/ Dextromethorphan (Mucinex Dm) 1 tab BID PO Last administered on 10:50; Admin Dose 1 TAB; Start 08/31/17 at 23:00 Metoclopramide HCl (Reglan) 5 mg TID PEG Last administered on 09/02/17 09:46 ; Admin Dose 5 MG; Start 09/01/17 at 13:00 Polyethylene Glycol (Miralax) 17 gm DAILY GTB ; Start 09/01/17 at 10:30 Miscellaneous Information (Pending Santyl Order For Wound Care) This patient bryant... PRN PRN XX WOUND CARE; Start 09/01/17 at 12:00 LIZ GRACIA Sep 02, 2017 11:07
[2017-09-02] MEDS: COLLAGENASE 30 GM TUBE TOP SCH ×2 (11:27→21:00)
[2017-09-02 14:23] VITALS: BP 126/68; RESP 20
--- NOTE | 2017-09-02 14:40 | PN ---
Date/Time of Note Date/Time of Note DATE: 09/02/17 TIME: 14:30 Assessment/Plan VTE Prophylaxis VTE Prophylaxis Intervention: heparin Lines/Catheters IV [facility] Type (from [facility] PICC Line Central line still needed: Yes Urinary Cath still in place: Yes Reason Cath still needed: other (indicate) Assessment/Plan Chief Complaint/Hosp Course 72-year-old male with multiple medical problems, who was sent from [facility] facility because of altered mentation and shortness of breath. 1. Status post severe sepsis secondary to Bilateral lobar pneumonia secondary to aspiration. Status: Acute -Continue aspiration precaution with HOB 30 & up -Dietary consult to recommend bolus tube feeding to help with aspiration prevention. -H2 blockers to prevent acid reflux. 2. Altered mentation secondary to #1. Back to baseline. Status: Acute -Monitor 3. Obstructive DEEP from chronic Urethral strictures. Improved with adkins placement Status: Chronic -Continue Adkins. 4. Acute respiratory failure secondary to #1: resolved Status: Acute -Monitor respiratory status. -Aspiration precautions 5. Paroxysmal atrial fibrillation Status: Chronic -Resume outpatient management. Not a candidate for anticoagulation. 6. Dysphagia with history of aspiration-s/p peg Status: Chronic -Dietary consult for switching patient to bolus tube feed. 7. Alzheimer's dementia Status: Chronic -Resume home medications and continue supportive care 8. History of GERD Status: Chronic -Add H2 blockers. 9. BPH Status: Chronic -Resume home medications 10. Dyslipidemia Status: Chronic -On statin 11. Chronic anemia with iron deficiency. Status: Chronic -Resume oral iron replacement. PLAN: Discharge planning back to [facility] facility. Patient is seen in collaboration with . Problems: Subjective 24 Hr Interval Summary Free Text/Dictation Lying in bed comfortably. Not in acute distress. Exam/Review of Systems Vital Signs Vitals Vital Signs Date Time Temp Pulse Resp B/P Pulse Ox O2 Delivery O2 Flow Rate FiO2 09/02/17 14:23 97.6 75 20 126/68 92 09/02/17 00:00 Room Air 09/01/17 19:57 21 08/31/17 00:30 8.0 Intake and Output 09/01/17 09/01/17 09/02/17 15:00 23:00 07:00 Intake Total 1275.00 ml 540 ml 535 ml Output Total 2870 ml 300 ml 380 ml Balance -1595.00 ml 240 ml 155 ml Exam General: Elderly, chronically ill looking male not in acute distress. HEENT: Normocephalic, Atraumatic, No laceration or hematoma; Eyes: PEERL, Conjunctiva clear, Anicteric sclera Neck: Supple without any lymphadenopathy, nontender, no JVD, no carotid bruits, trachea midline, no thyromegaly Cardiac: S1, S2 auscultated, regular rhythm and rate, no mumurs or gallop Pulmonary: Diminished bibasilar. Normal respiratory effort. GI: With G-tube feeding. Abdomen normal to inspection. Soft, non tender, non- distended, no masses, no rebound tenderness or guarding. Bowel sounds active on all four quadrants Genitourinary: Deferred Extremities: Generalized weakness Neurologic: Awake/confused, mostly nonverbal-but makes incomprehensible sounds. Skin: Clean,dry, and intact. No ecchymosis, no rashes, or lesions Results Result Diagram: 09/02/17 0511 09/02/17 0511 Results 24 hrs Laboratory Tests Test 09/02/17 05:11 White Blood Count 7.3 Red Blood Count 2.58 L Hemoglobin 8.1 L Hematocrit 24.7 L Mean Corpuscular Volume 95.7 Mean Corpuscular Hemoglobin 31.4 Mean Corpuscular Hemoglobin Concent 32.8 Red Cell Distribution Width 19.6 H Platelet Count 237 # Mean Platelet Volume 13.8 H Neutrophils % 66.7 Lymphocytes % 20.7 Monocytes % 9.9 Eosinophils % 1.9 Basophils % 0.4 Nucleated Red Blood Cells % 0.0 Neutrophils # 4.9 Lymphocytes # 1.5 Monocytes # 0.7 Eosinophils # 0.1 Basophils # 0.0 Nucleated Red Blood Cells # 0.0 Sodium Level 140 Potassium Level 4.0 Chloride Level 107 Carbon Dioxide Level 27 Anion Gap 10 Blood Urea Nitrogen 21 H Creatinine 0.91 Glucose Level 112 Calcium Level 8.1 L Phosphorus Level 2.8 Magnesium Level 2.1 Medications Medications Current Medications IV Flush (NS 10 ml) 10 ml PRN PRN IV IV PROTOCOL; Start 08/30/17 at 13:30 Furosemide 40 mg 40 mg DAILY IV Last administered on 09/02/17t 09:46; Admin Dose 40 MG; Start 08/30/17 at 17:00; Stop 09/02/17 at 16:59 Levofloxacin/ Dextrose (Levaquin 500mg/ D5W 100 ml (Pmx)) 100 ml @ 100 mls/hr Q24H IVPB Last administered on 09/02/17 09:46; Admin Dose 100 MLS/HR; Start 08/31/17 at 09:30 Acetaminophen (Tylenol Tab) 650 mg Q4H PRN PO MILD PAIN LEVEL 1-3 Last administered on 08/31/17 22:45; Admin Dose 650 MG; Start 08/30/17 at 14:30 Atorvastatin Calcium (Lipitor) 20 mg QHS PO Last administered on 09/01/17 21: 19; Admin Dose 20 MG; Start 08/30/17 at 21:00 Digoxin (Digoxin) 0.125 mg DAILY PO Last administered on 09/02/17 09:46; Admin Dose 0.125 MG; Start 08/30/17 at 17:00 Saccharomyces Boulardii (Florastor) 250 mg BID PO Last administered on 09:46; Admin Dose 250 MG; Start 08/30/17 at 21:00 Heparin Sodium (Porcine) (Heparin (5000 Units/0.5 ml)) 5,000 unit BID SC Last administered on 09/02/17 10:01; Admin Dose 5,000 UNIT; Start 08/30/17 at 21: 00 Collagenase 1 applic 1 applic BID TOP Last administered on 09/02/17 11:27; Admin Dose 1 APPLIC; Start 08/31/17 at 09:00 Vancomycin HCl (Vancocin) 250 ml @ 125 mls/hr Q12H IVPB Last administered on 09/02/17 12:53; Admin Dose 125 MLS/HR; Start 08/31/17 at 12:00 Acetaminophen/ Hydrocodone Bitart ([place] (5/325)) 1 tab Q4H PRN GTB MODERATE PAIN LEVEL 4-6 Last administered on 08/31/17 14:02; Admin Dose 1 TAB; Start 08/31/17 at 11:30 Guaifenesin/ Dextromethorphan (Mucinex Dm) 1 tab BID PO Last administered on 10:50; Admin Dose 1 TAB; Start 08/31/17 at 23:00 Metoclopramide HCl (Reglan) 5 mg TID PEG Last administered on 12/18/17at 12:53 ; Admin Dose 5 MG; Start 09/01/17 at 13:00 Polyethylene Glycol (Miralax) 17 gm DAILY GTB ; Start 09/01/17 at 10:30 Miscellaneous Information (Pending [facility] Order For Wound Care) This patient bryant... PRN PRN XX WOUND CARE; Start 09/01/17 at 12:00 SHAHBAZ MCCURDY NP Sep 02, 2017 14:40
[2017-09-02] MEDS ORDERED: MAGNESIUM HYDROXIDE 30ML CUP PO PRN (15:00)
[2017-09-02 17:46] LABS: MICROALBUMIN 1.6 mg/dL
[2017-09-02 19:29] VITALS: BP 113/63; RESP 16
[2017-09-02] MEDS ORDERED: GABAPENTIN 300 MG CAP PO SCH (21:00)
[2017-09-02] MEDS: RISPERIDONE 1 MG TAB PO SCH (21:50)
[2017-09-02] MEDS: TAMSULOSIN (SR) 0.4 MG CAP PO SCH (21:51)
[2017-09-02] MEDS: ATORVASTATIN 20 MG TAB PO SCH (21:51)
[2017-09-02] MEDS: FAMOTIDINE 20 MG TAB PO SCH (21:51)
[2017-09-02] MEDS: METOPROLOL 50 MG TAB PO SCH (21:52)
--- NOTE | 2017-09-02 22:15 | PN ---
DATE: 09/02/2017 INFECTIOUS DISEASE PROGRESS NOTE SUBJECTIVE: No acute changes. The patient is sleeping, looks comfortable, no fevers. LABORATORY DATA: WBC 7.3, platelets 237, neutrophils 6.7, BUN 21, creatinine 0.91. MICROBIOLOGY: Cultures have been negative. DIAGNOSTICS: Chest x-ray on 08/31/2017 revealed pulmonary vascular congestion, right basilar atelec tasis or pneumonia. INDWELLINGS: PICC line placed on this admission, Lindsey catheter. ANTIMICROBIALS: The patient is on: 1. Vancomycin. 2. Levaquin. PHYSICAL EXAMINATION: GENERAL: Fragile, elderly man in no distress. HEENT: Head atraumatic, normocephalic. Sclerae anicteric. Buccal mucosa dry. NECK: Supple. CHEST: Rise symmetrical. Breath sounds diminished to bases. HEART: S1, S2. ABDOMEN: Soft, bowel tones present. EXTREMITIES: Without cyanosis. ASSESSMENT: 1. Status post septic shock. 2. Pneumonia. 3. Ureteral strictures status post Lindsey catheter placed by Dr. Solis on admission. 4. Acute kidney injury. 5. Bilateral hydroureteronephrosis. 6. Anemia and dysphagia. PLAN: The patient remains stable. HE IS ALLERGIC TO PENICILLIN. He is overall improving. Pulmon umair, urology and nephrology on case. Continue present care, antibiotics, anti-aspiration measures. Dictated By: MIREYA HAMPTON ORNITHOLOGY TEACHER for DAT MOREAU MD NI/NTS Conf#: [id number] DID#: [id number] CC: JERE HAGAN MD;*EndCC*
[2017-09-03] MEDS: VANCOMYCIN 1 GM in NS 250 ML IVPB SCH ×2 (00:54→11:25)
[2017-09-03 02:00] VITALS: BP 132/63; RESP 16
[2017-09-03 06:35] LABS: ABNORMAL IP MESSAGE 1; BASOPHILS % 0.4 % (0.0-2.0); EOSINOPHILS # 0.2 10^3/ul (0.0-0.5); EOSINOPHILS % 2.3 % (0.0-7.0); HEMATOCRIT 27.2 % (42.0-52.0); HEMOGLOBIN 9.1 g/dl (14.0-18.0); LYMPHOCYTES # 1.5 10^3/ul (0.8-2.9); LYMPHOCYTES % 16.2 % (15.0-51.0); MEAN CORPUSCULAR HEMOGLOBIN 31.7 pg (29.0-33.0); MEAN CORPUSCULAR HGB CONC 33.5 g/dl (32.0-37.0); MEAN CORPUSCULAR VOLUME 94.8 fl (82.0-101.0); MEAN PLATELET VOLUME 13.1 fl (7.4-10.4); MONOCYTE # 0.8 10^3/ul (0.3-0.9); MONOCYTES % 8.9 % (0.0-11.0); NEUTROPHIL # 6.7 10^3/ul (1.6-7.5); NEUTROPHILS % 71.6 % (39.0-77.0); PLATELET COUNT 298 10^3/UL (140-415); POSITIVE DIFF @See below; RED BLOOD COUNT 2.87 10^6/ul (4.70-6.10); RED CELL DISTRIBUTION WIDTH 18.7 % (11.5-14.5); WHITE BLOOD COUNT 9.3 10^3/ul (4.8-10.8)
[2017-09-03 07:10] LABS: CALCIUM 8.3 mg/dl (8.4-10.2); CREATININE 0.97 mg/dl (0.61-1.24); MAGNESIUM 1.9 mg/dl (1.7-2.5); PHOSPHORUS 3.3 mg/dl (2.5-4.9); POTASSIUM 4.1 mmol/L (3.5-5.1)
[2017-09-03 07:50] VITALS: BP 129/67; RESP 16
[2017-09-03] MEDS: POLYETHYLENE GLYCOL 17 GM PACKET GTB SCH (09:00)
[2017-09-03] MEDS: METOCLOPRAMIDE 5 MG TAB PEG SCH ×3 (09:19→21:55)
[2017-09-03] MEDS: FINASTERIDE 5 MG TAB PO SCH (09:19)
[2017-09-03] MEDS: ASCORBIC ACID 500 MG TAB PO SCH (09:19)
[2017-09-03] MEDS: FERROUS SULFATE (EC) 325 MG TAB PO SCH (09:20)
[2017-09-03] MEDS: DIVALPROEX (EC) 500 MG TAB PO SCH (09:20)
[2017-09-03] MEDS: GUAIFENESIN/DM (SR) TAB PO SCH ×2 (09:20→21:54)
[2017-09-03] MEDS: MULTIVITAMINS THERAPEUTIC TAB PO SCH (09:20)
[2017-09-03] MEDS: SACCHAROMYCES BOULARDII 250 MG CAP PO SCH ×2 (09:20→21:54)
[2017-09-03] MEDS: METOPROLOL 50 MG TAB PO SCH ×2 (09:20→21:55)
[2017-09-03] MEDS: DIGOXIN 0.125 MG TAB PO SCH (09:21)
[2017-09-03] MEDS: LEVOFLOXACIN 500MG/D5W (PMX) 100 ML IVPB SCH (09:34)
[2017-09-03] MEDS: HEPARIN 5,000 UNIT/0.5 ML VIAL SC SCH ×2 (09:43→22:03)
--- NOTE | 2017-09-03 09:50 | PN ---
DATE: 09/03/2017 SUBJECTIVE: The patient is stable, no events overnight. OBJECTIVE: VITAL SIGNS: Blood pressure is 129/67, respirations 16, temperature 98.3, saturating 95% on 2 liter s nasal cannula. HEENT: Head is normocephalic. NECK: Supple. HEART: Regular rate. LUNGS: Show diminished breath sounds at base. ABDOMEN: Soft, nontender to palpation without rebound or guarding. EXTREMITIES: Negative for clubbing, cyanosis, edema. DERMATOLOGIC: No rashes. MUSCULOSKELETAL: No joint effusions. NEUROLOGIC: No change in exam. MEDICATIONS: The patient's medications have been reviewed. LABORATORY DATA: Sodium 138, potassium 4.1, BUN 23, creatinine 0.97. White count 19.3, hemoglobin 9.1, platelet count is 298. ASSESSMENT AND PLAN: 1. Nonoliguric acute kidney injury with a previous baseline creatinine 1.1 to 1.5 mg/dL. Etiology of acute kidney injury was secondary to obstructive uropathy. The patient's renal functions have im proved. Continue current treatment plan, supportive care, renally dose all medicines. 2. Bilateral hydroureteronephrosis. The patient is status post Lindsey catheter placement. Continue to monitor. Follow up with urology. 3. Anemia. Monitor hematocrit levels. 4. Mineral bone disorder. Monitor calcium and phosphorus levels. 5. Acute diastolic heart failure. The patient is near euvolemic status. Continue intermittent diu retic therapy. 6. Severe sepsis status post pneumonia. Continue current antibiotic regimen. 6. Dysphagia. G-tube. 7. Acute encephalopathy and Alzheimer dementia. 8. Gastrointestinal and deep vein thrombosis prophylaxis. Dictated By: LEVY PHAM/HASMUKH Conf#: [id number] DID#: [id number]
--- NOTE | 2017-09-03 10:46 | CONS ---
Date/Time of Note Date/Time of Note DATE: 09/03/17 TIME: 10:43 Assessment/Plan Assessment/Plan Additional Assessment/Plan Assessment and recommendations; 1. Patient admitted with bilateral pneumonia with interval improvement. 2. Chronic dysphagia, status post G-tube placement in the past. 3. History of mild anemia. 4. Mild dementia. Continue current treatment. Consultation Date/Type/Reason Admit Date/Time Aug 30, 2017 at 14:08 Initial Consult Date 08/30/17 Type of Consultation: Pulmonary Referring Provider: JERE HAGAN 24 HR Interval Summary Free Text/Dictation Patient's condition is stable. Remains awake and alert. Has remained hemodynamically stable. General exam; elderly male, awake, currently in no distress. Exam/Review of Systems Vital Signs Vitals Vital Signs Date Time Temp Pulse Resp B/P Pulse Ox O2 Delivery O2 Flow Rate FiO2 09/03/17 07:50 98.3 16 129/67 95 09/03/17 02:00 71 09/02/17 21:50 Nasal Cannula 09/01/17 19:57 21 08/31/17 00:30 8.0 Intake and Output 09/02/17 09/02/17 09/03/17 15:00 23:00 07:00 Intake Total 100 ml 1060 ml 1060 ml Output Total 2000 ml 800 ml Balance 100 ml -940 ml 260 ml Exam H ENT exam; supple neck, no JVD. No lymphadenopathy. Midline trachea. No thyromegaly. Patient does have multiple carious teeth. Chest exam; diminished but clear breath sounds. S1-S2 audible, no murmurs. Regular rhythm. Abdomen exam; soft, G-tube in place. Nondistended. Nontender. No organomegaly. Bowel sounds audible. Extremity exam; no edema. Patient does have patchy ecchymosis involving extremities. SPOR[employer] UMPIRE exam; patient is awake and follows simple commands but exhibiting generalized weakness. Results Result Diagram: 09/03/1759 09/03/17 0559 Results 24 hrs Laboratory Tests Test 09/03/17 05:59 White Blood Count 9.3 # Red Blood Count 2.87 L Hemoglobin 9.1 L Hematocrit 27.2 L Mean Corpuscular Volume 94.8 Mean Corpuscular Hemoglobin 31.7 Mean Corpuscular Hemoglobin Concent 33.5 Red Cell Distribution Width 18.7 H Platelet Count 298 # Mean Platelet Volume 13.1 H Neutrophils % 71.6 Lymphocytes % 16.2 Monocytes % 8.9 Eosinophils % 2.3 Basophils % 0.4 Nucleated Red Blood Cells % 0.0 Neutrophils # 6.7 Lymphocytes # 1.5 Monocytes # 0.8 Eosinophils # 0.2 Basophils # 0.0 Nucleated Red Blood Cells # 0.0 Sodium Level 138 Potassium Level 4.1 Chloride Level 104 Carbon Dioxide Level 27 Anion Gap 11 Blood Urea Nitrogen 23 H Creatinine 0.97 Glucose Level 116 Calcium Level 8.3 L Phosphorus Level 3.3 Magnesium Level 1.9 Medications Medications Current Medications IV Flush 10 ml 10 ml PRN PRN IV IV PROTOCOL; Start 08/30/17 at 13:30 Levofloxacin/ Dextrose (Levaquin 500mg/ D5W 100 ml (Pmx)) 100 ml @ 100 mls/hr Q24H IVPB Last administered on 09/03/17 09:34; Admin Dose 100 MLS/HR; Start 08/31/17 at 09:30 Acetaminophen (Tylenol Tab) 650 mg Q4H PRN PO MILD PAIN LEVEL 1-3 Last administered on 08/31/17 22:45; Admin Dose 650 MG; Start 08/30/17 at 14:30 Atorvastatin Calcium (Lipitor) 20 mg QHS PO Last administered on 09/02/17 21: 51; Admin Dose 20 MG; Start 08/30/17 at 21:00 Digoxin (Digoxin) 0.125 mg DAILY PO Last administered on 09/03/17 09:21; Admin Dose 0.125 MG; Start 08/30/17 at 17:00 Saccharomyces Boulardii (Florastor) 250 mg BID PO Last administered on 09:20; Admin Dose 250 MG; Start 08/30/17 at 21:00 Heparin Sodium (Porcine) (Heparin (5000 Units/0.5 ml)) 5,000 unit BID SC Last administered on 09/03/17 09:43; Admin Dose 5,000 UNIT; Start 08/30/17 at 21: 00 Collagenase 1 applic 1 applic BID TOP Last administered on 09/02/17 11:27; Admin Dose 1 APPLIC; Start 08/31/17 at 09:00 Vancomycin HCl (Vancocin) 250 ml @ 125 mls/hr Q12H IVPB Last administered on 09/03/17 00:54; Admin Dose 125 MLS/HR; Start 08/31/17 at 12:00 Acetaminophen/ Hydrocodone Bitart ([place] (5/325)) 1 tab Q4H PRN GTB MODERATE PAIN LEVEL 4-6 Last administered on 08/31/17 14:02; Admin Dose 1 TAB; Start 08/31/17 at 11:30 Guaifenesin/ Dextromethorphan (Mucinex Dm) 1 tab BID PO Last administered on 09:20; Admin Dose 1 TAB; Start 08/31/17 at 23:00 Metoclopramide HCl (Reglan) 5 mg TID PEG Last administered on 09/03/17 09:19 ; Admin Dose 5 MG; Start 09/01/17 at 13:00 Polyethylene Glycol (Miralax) 17 gm DAILY GTB ; Start 09/01/17 at 10:30 Miscellaneous Information (Pending [facility] Order For Wound Care) This patient bryant... PRN PRN XX WOUND CARE; Start 09/01/17 at 12:00 Ascorbic Acid (Vitamin C) 500 mg DAILY PO Last administered on 09/03/17 09:19 ; Admin Dose 500 MG; Start 09/03/17 at 09:00 Divalproex Sodium (Depakote) 500 mg DAILY PO Last administered on 09/03/17 09 :20; Admin Dose 500 MG; Start 09/03/17 at 09:00 Ferrous Sulfate (Ferrous Sulfate (Ec)) 325 mg DAILY PO Last administered on 09:20; Admin Dose 325 MG; Start 09/03/17 at 09:00 Finasteride (Proscar) 5 mg DAILY PO Last administered on 09/03/17 09:19; Admin Dose 5 MG; Start 09/03/17 at 09:00 Magnesium Hydroxide (Milk Of Mag) 30 ml QHS PRN PO CONSTIPATION; Start at 15:00 Metoprolol Tartrate (Lopressor) 50 mg BID PO Last administered on 09/03/17 09 :20; Admin Dose 50 MG; Start 09/02/17 at 21:00 Multivitamins Therapeutic (Theragran) 1 tab DAILY PO Last administered on 09/03 09:20; Admin Dose 1 TAB; Start 09/03/17 at 09:00 Risperidone (Risperdal) 1 mg QHS PO Last administered on 09/02/17 21:50; Admin Dose 1 MG; Start 09/02/17 at 21:00 Tamsulosin HCl (Flomax) 0.8 mg HS PO Last administered on 09/02/17 21:51; Admin Dose 0.8 MG; Start 09/02/17 at 21:00 Famotidine (Pepcid) 20 mg HS PO Last administered on 09/02/17 21:51; Admin Dose 20 MG; Start 09/02/17 at 21:00 LIZ GRACIA Sep 03, 2017 10:46
[2017-09-03 14:07] VITALS: BP 130/65; RESP 16
[2017-09-03] MEDS ORDERED: ALBUTEROL 0.083% (NEB) 2.5 MG/3 ML AMP HHN PRN (15:30)
--- NOTE | 2017-09-03 15:38 | PN ---
Date/Time of Note Date/Time of Note DATE: 09/03/17 TIME: 15:30 Assessment/Plan VTE Prophylaxis VTE Prophylaxis Intervention: SCD's Lines/Catheters IV Catheter Type (from [facility]rs): PICC Line Central line still needed: Yes Urinary Cath still in place: Yes Reason Cath still needed: urinary retention Assessment/Plan Assessment/Plan 72-year-old male with multiple medical problems, who was sent from [facility] facility because of altered mentation and shortness of breath. 1. Status post severe sepsis secondary to Bilateral lobar pneumonia secondary to aspiration - Patient desaturated last night on room air and was placed back on 2L O2. Will wean as tolerated to keep O2 saturations >90%. If no improvement tmrw am, will need repeat CXR to assess - Continue aspiration precaution with HOB 30 & up - Dietary consult to recommend bolus tube feeding then continuous feeding. - H2 blockers to prevent acid reflux. 2. Altered mentation secondary to #1. Back to baseline. - Monitor 3. Obstructive DEEP from chronic Urethral strictures. Improved with adkins placement - Continue Adkins. 4. Acute respiratory failure secondary to #1 - Monitor respiratory status. - Aspiration precautions 5. Paroxysmal atrial fibrillation - Continue on current management - no a candidate for anticoag 6. Dysphagia with history of aspiration-s/p peg - Dietary consult for switching patient to bolus tube feed. 7. Alzheimer's dementia - Resume home medications and continue supportive care 8. History of GERD - on pepcid. 9. BPH - Resume home medications 10. Dyslipidemia - On statin 11. Chronic anemia with iron deficiency. - continue iron replacement 12. Disposition - continue monitoring on med/surg until saturating well on RA since need for O2 supplement is acute Subjective 24 Hr Interval Summary Free Text/Dictation Patient had episode of hypoxia on room air last night and placed on 2L. Patient opens eyes to touch. Exam/Review of Systems Vital Signs Vitals Vital Signs Date Time Temp Pulse Resp B/P Pulse Ox O2 Delivery O2 Flow Rate FiO2 09/03/17 14:07 98.2 69 16 130/65 96 09/03/17 08:10 Nasal Cannula 09/01/17 19:57 21 08/31/17 00:30 8.0 Intake and Output 09/02/17 09/02/17 09/03/17 15:00 23:00 07:00 Intake Total 100 ml 1060 ml 1060 ml Output Total 2000 ml 800 ml Balance 100 ml -940 ml 260 ml Exam General: Elderly, chronically ill looking male not in acute distress. on NC HEENT: Normocephalic, Atraumatic Eyes: PEERL, Conjunctiva clear Neck: Supple Cardiac: S1, S2 auscultated, regular rhythm and rate, no mumurs or gallop Pulmonary: Diminished bibasilar. Normal respiratory effort. GI: With G-tube feeding. Soft, non tender, non- distended, no masses, no rebound tenderness or guarding. Bowel sounds active on all four quadrants Extremities: Generalized weakness Neurologic: Awake/confused, nonverbal Skin: Clean,dry, and intact. No ecchymosis, no rashes, or lesions Results Result Diagram: 09/03/1755809/03/17 0559 Results 24 hrs Laboratory Tests Test 09/03/17 05:59 White Blood Count 9.3 # Red Blood Count 2.87 L Hemoglobin 9.1 L Hematocrit 27.2 L Mean Corpuscular Volume 94.8 Mean Corpuscular Hemoglobin 31.7 Mean Corpuscular Hemoglobin Concent 33.5 Red Cell Distribution Width 18.7 H Platelet Count 298 # Mean Platelet Volume 13.1 H Neutrophils % 71.6 Lymphocytes % 16.2 Monocytes % 8.9 Eosinophils % 2.3 Basophils % 0.4 Nucleated Red Blood Cells % 0.0 Neutrophils # 6.7 Lymphocytes # 1.5 Monocytes # 0.8 Eosinophils # 0.2 Basophils # 0.0 Nucleated Red Blood Cells # 0.0 Sodium Level 138 Potassium Level 4.1 Chloride Level 104 Carbon Dioxide Level 27 Anion Gap 11 Blood Urea Nitrogen 23 H Creatinine 0.97 Glucose Level 116 Calcium Level 8.3 L Phosphorus Level 3.3 Magnesium Level 1.9 Medications Medications Current Medications IV Flush 10 ml 10 ml PRN PRN IV IV PROTOCOL; Start 08/30/17 at 13:30 Levofloxacin/ Dextrose (Levaquin 500mg/ D5W 100 ml (Pmx)) 100 ml @ 100 mls/hr Q24H IVPB Last administered on 09/03/17 09:34; Admin Dose 100 MLS/HR; Start 08/31/17 at 09:30 Acetaminophen (Tylenol Tab) 650 mg Q4H PRN PO MILD PAIN LEVEL 1-3 Last administered on 08/31/17 22:45; Admin Dose 650 MG; Start 08/30/17 at 14:30 Atorvastatin Calcium (Lipitor) 20 mg QHS PO Last administered on 09/02/17 21: 51; Admin Dose 20 MG; Start 08/30/17 at 21:00 Digoxin (Digoxin) 0.125 mg DAILY PO Last administered on 09/03/17 09:21; Admin Dose 0.125 MG; Start 08/30/17 at 17:00 Saccharomyces Boulardii (Florastor) 250 mg BID PO Last administered on 09:20; Admin Dose 250 MG; Start 08/30/17 at 21:00 Heparin Sodium (Porcine) (Heparin (5000 Units/0.5 ml)) 5,000 unit BID SC Last administered on 09/03/17 09:43; Admin Dose 5,000 UNIT; Start 08/30/17 at 21: 00 Collagenase 1 applic 1 applic BID TOP Last administered on 09/02/17 11:27; Admin Dose 1 APPLIC; Start 08/31/17 at 09:00 Vancomycin HCl (Vancocin) 250 ml @ 125 mls/hr Q12H IVPB Last administered on 09/03/17 11:25; Admin Dose 125 MLS/HR; Start 08/31/17 at 12:00 Acetaminophen/ Hydrocodone Bitart ([place] (5/325)) 1 tab Q4H PRN GTB MODERATE PAIN LEVEL 4-6 Last administered on 08/31/17 14:02; Admin Dose 1 TAB; Start 08/31/17 at 11:30 Guaifenesin/ Dextromethorphan (Mucinex Dm) 1 tab BID PO Last administered on 09:20; Admin Dose 1 TAB; Start 08/31/17 at 23:00 Metoclopramide HCl (Reglan) 5 mg TID PEG Last administered on 09/03/17 12:39 ; Admin Dose 5 MG; Start 09/01/17 at 13:00 Polyethylene Glycol (Miralax) 17 gm DAILY GTB ; Start 09/01/17 at 10:30 [facility] This patient bryant... PRN PRN XX WOUND CARE; Start 09/01/17 at 12:00 Ascorbic Acid (Vitamin C) 500 mg DAILY PO Last administered on 09/03/17 09:19 ; Admin Dose 500 MG; Start 09/03/17 at 09:00 Divalproex Sodium (Depakote) 500 mg DAILY PO Last administered on 09/03/17 09 :20; Admin Dose 500 MG; Start 09/03/17 at 09:00 Ferrous Sulfate (Ferrous Sulfate (Ec)) 325 mg DAILY PO Last administered on 09:20; Admin Dose 325 MG; Start 09/03/17 at 09:00 Finasteride (Proscar) 5 mg DAILY PO Last administered on 09/03/17 09:19; Admin Dose 5 MG; Start 09/03/17 at 09:00 Magnesium Hydroxide (Milk Of Mag) 30 ml QHS PRN PO CONSTIPATION; Start at 15:00 Metoprolol Tartrate (Lopressor) 50 mg BID PO Last administered on 09/03/17 09 :20; Admin Dose 50 MG; Start 09/02/17 at 21:00 Multivitamins Therapeutic (Theragran) 1 tab DAILY PO Last administered on 09/03 09:20; Admin Dose 1 TAB; Start 09/03/17 at 09:00 Risperidone (Risperdal) 1 mg QHS PO Last administered on 09/02/17 21:50; Admin Dose 1 MG; Start 09/02/17 at 21:00 Tamsulosin HCl (Flomax) 0.8 mg HS PO Last administered on 09/02/17 21:51; Admin Dose 0.8 MG; Start 09/02/17 at 21:00 Famotidine (Pepcid) 20 mg HS PO Last administered on 09/02/17 21:51; Admin Dose 20 MG; Start 09/02/17 at 21:00 SCOT SPARKS MD Sep 03, 2017 15:38
[2017-09-03] MEDS: COLLAGENASE 30 GM TUBE TOP SCH ×2 (16:00→19:57)
[2017-09-03] MEDS ORDERED: ALTEPLASE (CATHFLO) 2 MG INJ CATHETER PRN (16:00)
[2017-09-03 20:00] VITALS: BP 121/73; RESP 20
--- NOTE | 2017-09-03 20:03 | PN ---
DATE: 09/03/2017 INFECTIOUS DISEASE PROGRESS NOTE SUBJECTIVE: No acute changes. The patient is awake, noncommunicative, looks comfortable. Afebrile . WBC 9.3, no shift, no bands. BUN 23, creatinine 0.97. INDWELLINGS: PEG and Lindsey catheter. ANTIMICROBIALS: The patient is on vancomycin and levofloxacin. ALLERGIES: PENICILLIN. PHYSICAL EXAMINATION: GENERAL: This is a chronically ill-appearing, elderly man who is in no distress. HEENT: Head atraumatic, normocephalic. Sclerae anicteric. Buccal mucosa dry. NECK: Supple. CHEST: Rise symmetrical. Breath sounds diminished at the bases. HEART: S1, S2. ABDOMEN: Soft. Bowel tones present. EXTREMITIES: Without cyanosis. ASSESSMENT: 1. Resolving sepsis, status post shock. 2. Bilateral pneumonia. 3. Dysphagia. 4. Encephalopathy. 5. Ureteral stricture, status post Lindsey catheter placed by Dr. Solis. 6. Bilateral hydroureteronephrosis. 7. Acute kidney injury, resolving. PLAN: Patient remains stable. Continue present care, antibiotics, anti-aspiration measures, follow recommendations of specialists. Dictated By: MIREYA HAMPTON REFRACTORY SPECIALIST for DAT MOREAU MD NI/NTS Conf#: [id number] DID#: [id number] CC: JERE HAGAN MD;*EndCC*
[2017-09-03] MEDS: RISPERIDONE 1 MG TAB PO SCH (21:55)
[2017-09-03] MEDS: TAMSULOSIN (SR) 0.4 MG CAP PO SCH (21:55)
[2017-09-03] MEDS: ATORVASTATIN 20 MG TAB PO SCH (21:55)
[2017-09-03] MEDS: FAMOTIDINE 20 MG TAB PO SCH (21:55)
[2017-09-04] MEDS: VANCOMYCIN 1 GM in NS 250 ML IVPB SCH ×2 (00:19→12:14)
[2017-09-04 02:00] VITALS: BP 102/63; RESP 20
[2017-09-04 07:43] VITALS: BP 108/65; RESP 21
[2017-09-04] MEDS: HEPARIN 5,000 UNIT/0.5 ML VIAL SC SCH (08:24)
[2017-09-04] MEDS: POLYETHYLENE GLYCOL 17 GM PACKET GTB SCH (08:25)
[2017-09-04] MEDS: DIVALPROEX (EC) 500 MG TAB PO SCH (08:25)
[2017-09-04] MEDS: GUAIFENESIN/DM (SR) TAB PO SCH (08:25)
[2017-09-04] MEDS: SACCHAROMYCES BOULARDII 250 MG CAP PO SCH (08:26)
[2017-09-04] MEDS: FERROUS SULFATE (EC) 325 MG TAB PO SCH (08:26)
[2017-09-04] MEDS: DIGOXIN 0.125 MG TAB PO SCH (08:26)
[2017-09-04] MEDS: MULTIVITAMINS THERAPEUTIC TAB PO SCH (08:26)
[2017-09-04] MEDS: ASCORBIC ACID 500 MG TAB PO SCH (08:26)
[2017-09-04] MEDS: METOCLOPRAMIDE 5 MG TAB PEG SCH ×2 (08:26→12:14)
[2017-09-04] MEDS: FINASTERIDE 5 MG TAB PO SCH (08:26)
[2017-09-04] MEDS: METOPROLOL 50 MG TAB PO SCH (08:27)
--- NOTE | 2017-09-04 08:54 | PN ---
DATE: 09/04/2017 SUBJECTIVE: The patient is stable. No events overnight. No fevers, chills, nausea, vomiting. OBJECTIVE: VITAL SIGNS: Blood pressure is 108/65, respirations 21, pulse 76, temperature 98.1. HEENT: Head is normocephalic. NECK: Supple. HEART: Regular rate. LUNGS: Show diminished breath sounds at base. ABDOMEN: Soft, nontender to palpation. No rebound or guarding. EXTREMITIES: Negative for clubbing, cyanosis. No edema. DERMATOLOGIC: No rashes. MUSCULOSKELETAL: No joint effusion. NEUROLOGIC: No change in exam. MEDICATIONS: The patient's medications have been reviewed. LABORATORY DATA: Has been reviewed. ASSESSMENT AND PLAN: 1. Nonoliguric acute kidney injury with a baseline creatinine of 1.1-1.5 mg/dL. Etiology secondary to urethral stricture, obstructive uropathy. The patient's renal function has improved after Lindsey catheter placement. Continue to monitor. 2. Bilateral hydroureteronephrosis secondary to urethral stricture. The patient is status post Fol ey catheter placement. Continue to monitor. 3. Anemia. Monitor hemoglobin and hematocrit levels. 4. Mineral bone disorder. Monitor calcium and phosphorus levels. 5. Acute diastolic heart failure. The patient appears euvolemic. Continue intermittent diuretic t herapy. 6. Severe sepsis secondary to pneumonia. Continue current antibiotic regimen. 7. Dysphagia, status post nasogastric tube feedings. 8. Acute encephalopathy with Alzheimer dementia. 9. Gastrointestinal and deep vein thrombosis prophylaxis. Dictated By: LEVY PHAM/HASMUKH Conf#: [id number] DID#: [id number] CC: JERE HAGAN MD;*EndCC*
[2017-09-04] MEDS ORDERED: FUROSEMIDE 20 MG TAB GTB SCH (09:00)
[2017-09-04] MEDS: LEVOFLOXACIN 500MG/D5W (PMX) 100 ML IVPB SCH (10:17)
--- NOTE | 2017-09-04 10:38 | CONS ---
Date/Time of Note Date/Time of Note DATE: 09/04/17 TIME: 10:36 Assessment/Plan Assessment/Plan Additional Assessment/Plan Assessment and recommendations; 1. Patient admitted with bilateral pneumonia currently on appropriate antibiotic regimen. 2. Chronic dysphagia, status post G-tube placement in the past. 3. Chronic anemia. 4. Dementia. Continue current treatment. Will obtain follow-up chest x-ray. Consultation Date/Type/Reason Admit Date/Time Aug 30, 2017 at 14:08 Initial Consult Date 08/30/17 Type of Consultation: Pulmonary Referring Provider: JERE HAGAN 24 HR Interval Summary Free Text/Dictation Patient's condition remained stable. Remains awake and alert. Has remained hemodynamically stable. General exam; elderly male, awake, currently in no distress. Exam/Review of Systems Vital Signs Vitals Vital Signs Date Time Temp Pulse Resp B/P Pulse Ox O2 Delivery O2 Flow Rate FiO2 09/04/17 07:43 98.1 76 21 108/65 94 09/04/17 05:17 2.0 09/03/17 20:59 Nasal Cannula Intake and Output 09/03/17 09/03/17 09/04/17 15:00 23:00 07:00 Intake Total 350 ml 1060 ml Output Total 500 ml Balance 350 ml -500 ml 1060 ml Exam HEENT exam; supple neck, no JVD. No lymphadenopathy. Midline trachea. No thyromegaly. Patient has a multiple carious teeth. Chest exam; diminished breath sounds bilaterally. S1-S2 audible, no murmurs. Regular rhythm. Abdomen exam; soft, nontender. No organomegaly. Bowel sounds audible. G-tube in place. Extremity exam; no edema. PROPERTY CUSTODIAN exam; no focal deficit. Patient however has significant generalized weakness. Results Result Diagram: 09/03/17 0559 09/03/17 0559 Results 24 hrs Laboratory Tests Test 09/03/17 23:31 09/04/17 06:20 Vancomycin Level Trough 17.0 Lab Scanned Report BLOOD TRANSFUSION Medications Medications Current Medications IV Flush 10 ml 10 ml PRN PRN IV IV PROTOCOL; Start 08/30/17 at 13:30 Levofloxacin/ Dextrose (Levaquin 500mg/ D5W 100 ml (Pmx)) 100 ml @ 100 mls/hr Q24H IVPB Last administered on 09/04/17t 10:17; Admin Dose 100 MLS/HR; Start 08/31/17 at 09:30 Acetaminophen (Tylenol Tab) 650 mg Q4H PRN PO MILD PAIN LEVEL 1-3 Last administered on 08/31/17 22:45; Admin Dose 650 MG; Start 08/30/17 at 14:30 Atorvastatin Calcium (Lipitor) 20 mg QHS PO Last administered on 09/03/17 21: 55; Admin Dose 20 MG; Start 08/30/17 at 21:00 Digoxin (Digoxin) 0.125 mg DAILY PO Last administered on 09/04/17 08:26; Admin Dose 0.125 MG; Start 08/30/17 at 17:00 Saccharomyces Boulardii (Florastor) 250 mg BID PO Last administered on 08:26; Admin Dose 250 MG; Start 08/30/17 at 21:00 Heparin Sodium (Porcine) (Heparin (5000 Units/0.5 ml)) 5,000 unit BID SC Last administered on 09/04/17 08:24; Admin Dose 5,000 UNIT; Start 08/30/17 at 21: 00 Collagenase 1 applic 1 applic BID TOP Last administered on 09/03/17 16:00; Admin Dose 1 APPLIC; Start 08/31/17 at 09:00 Vancomycin HCl (Vancocin) 250 ml @ 125 mls/hr Q12H IVPB Last administered on 09/04/17 00:19; Admin Dose 125 MLS/HR; Start 08/31/17 at 12:00 Acetaminophen/ Hydrocodone Bitart ([place] (5/325)) 1 tab Q4H PRN GTB MODERATE PAIN LEVEL 4-6 Last administered on 08/31/17 14:02; Admin Dose 1 TAB; Start 08/31/17 at 11:30 Guaifenesin/ Dextromethorphan (Mucinex Dm) 1 tab BID PO Last administered on 08:25; Admin Dose 1 TAB; Start 08/31/17 at 23:00 Metoclopramide HCl (Reglan) 5 mg TID PEG Last administered on 09/04/17 08:26 ; Admin Dose 5 MG; Start 09/01/17 at 13:00 Polyethylene Glycol (Miralax) 17 gm DAILY GTB Last administered on 09/04/17 08:25; Admin Dose 17 GM; Start 09/01/17 at 10:30 Miscellaneous Information (Pending Santyl Order For Wound Care) This patient bryant... PRN PRN XX WOUND CARE; Start 09/01/17 at 12:00 Ascorbic Acid (Vitamin C) 500 mg DAILY PO Last administered on 09/04/17 08:26 ; Admin Dose 500 MG; Start 09/03/17 at 09:00 Divalproex Sodium (Depakote) 500 mg DAILY PO Last administered on 09/04/17 08 :25; Admin Dose 500 MG; Start 09/03/17 at 09:00 Ferrous Sulfate (Ferrous Sulfate (Ec)) 325 mg DAILY PO Last administered on 08:26; Admin Dose 325 MG; Start 09/03/17 at 09:00 Finasteride (Proscar) 5 mg DAILY PO Last administered on 09/04/17 08:26; Admin Dose 5 MG; Start 09/03/17 at 09:00 Magnesium Hydroxide (Milk Of Mag) 30 ml QHS PRN PO CONSTIPATION; Start at 15:00 Metoprolol Tartrate (Lopressor) 50 mg BID PO Last administered on 09/04/17 08 :27; Admin Dose 50 MG; Start 09/02/17 at 21:00 Multivitamins Therapeutic (Theragran) 1 tab DAILY PO Last administered on 09/04 08:26; Admin Dose 1 TAB; Start 09/03/17 at 09:00 Risperidone (Risperdal) 1 mg QHS PO Last administered on 09/03/17 21:55; Admin Dose 1 MG; Start 09/02/17 at 21:00 Tamsulosin HCl (Flomax) 0.8 mg HS PO Last administered on 09/03/17 21:55; Admin Dose 0.8 MG; Start 09/02/17 at 21:00 Famotidine (Pepcid) 20 mg HS PO Last administered on 09/03/17 21:55; Admin Dose 20 MG; Start 09/02/17 at 21:00 Furosemide (Lasix) 20 mg DAILY GTB Last administered on 09/04/17 08:29; Admin Dose 20 MG; Start 09/04/17 at 09:00 LIZ GRACIA Sep 04, 2017 10:38
[2017-09-04] MEDS: COLLAGENASE 30 GM TUBE TOP SCH (10:46)
--- NOTE | 2017-09-04 12:24 | PDOCDIS ---
Discharge Instructions CONDITION Patient Condition: Stable HOME CARE INSTRUCTIONS: Your diet recommendation is: Fiber source tube feeding 30 mL's per hour FOLLOW UP/APPOINTMENTS Follow-up Plan Continue aspiration precaution. Check feeding tube position and residual every 4 hours. Flush with water 150 mL every 6. Hold tube feeding if residual is greater than 150. Head of the bed elevated 30 and up all the time. Nasotracheal suction every 6h O2 2 L via nasal cannula to keep SPO2 greater than 90%. SHAHBAZ MCCURDY NP Sep 04, 2017 12:24
[2017-09-04] MEDS ORDERED: LEVO500T10 IV* (12:26)
--- NOTE | 2017-09-04 12:42 | DS ---
Date/Time of Note Date/Time of Note DATE: 09/04/17 TIME: 12:36 Discharge Summary Admission/Discharge Info Admit Date/Time Aug 30, 2017 at 14:08 Discharge Date/Time Discharge Diagnosis 1. Status post severe sepsis secondary to Bilateral lobar pneumonia secondary to aspiration. 2. Altered mentation secondary to #1. Back to baseline. 3. Obstructive DEEP from chronic Urethral strictures.with Lindsey. 4. Acute respiratory failure secondary to #1: resolved 5. Paroxysmal atrial fibrillation 6. Dysphagia with history of aspiration-s/p peg 7. Alzheimer's dementia 8. History of GERD 9. BPH 10. Dyslipidemia 11. Chronic anemia with iron deficiency. Patient Condition: Stable Consults , urology Dr. Huerta, ID , pulmonary Procedures 08/30/2017 left upper arm PICC line insertion. 2016. CT brain. IMPRESSION: 1. No acute intracranial hemorrhage, transcortical infarction or mass effect. 2. Mild to moderate intracranial atherosclerosis and chronic small vessel ischemic changes. 3. Mild to moderate generalized cerebral and cerebellar volume loss. 08/31/2017. CT abdomen and pelvis. IMPRESSION: 1. Consolidation within the dependent portions of both lower lobes, consistent with aspiration or pneumonia. 2. Moderate bilateral hydroureteronephrosis with a distended urinary bladder. Differential considerations include neurogenic bladder and bladder outlet obstruction. 3. Distended rectum with stool measuring 8.6 cm with a moderate volume of stool elsewhere throughout the colon, suggestive of rectal fecal impaction. 4. Small right inguinal hernia containing a nonobstructed loop of distal ileum. 5. Descending colonic diverticulosis. 6. Multivessel coronary artery calcifications and atherosclerotic changes of the aorta. 7. Mild T12 vertebral body compression deformity, age indeterminate. 09/01/2017. Renal ultrasound. IMPRESSION: Multiple bilateral renal cysts. Questionable left parapelvic renal cysts versus dilatation of the left renal pelvis. Mild diffuse wall thickening of the bladder with balloon tip Lindsey catheter in place. 08/31/2017. Chest x-ray. IMPRESSION: 1. Right basilar interstitial opacities may reflect atelectasis or pneumonia, improved when compared to the prior examination. 2. Findings suggestive of pulmonary vascular congestion/interstitial edema. No significant interval change. 3. Aortic atherosclerosis. 4. Left upper extremity PICC line with tip near the cavoatrial junction. Hospital Course This is a 72-year-old male with multiple medical problems, who was [facility] because of altered mentation and shortness of breath. Patient was found with severe sepsis and hypoxic respiratory failure with bilateral lobar pneumonia most likely secondary to aspiration. Patient had pulmonary evaluation. Pneumonia was treated with IV antibiotic per ID recommendations. Patient was kept on aspiration precautions with head of bed 30 and up all the time. He was also given Reglan and Pepcid to prevent acid reflux. Fortunately, his oxygen requirement decreased and was able to saturate with 2 L nasal cannula. Patient also was noted with acute kidney injury from chronic urethral strictures requiring Lindsey insertion and urology workup. Recommendation was to continue Lindsey for now. Renal function remained stable. Patient was continued on home medication for underlying comorbid conditions. At this time, patient mentation is at his baseline. Pneumonia improved clinically as well as from diagnostic findings. His labs and vital signs stable. There is no further inpatient workup indicated. Patient is medically stable for discharge back to [facility] with completion of antibiotic for aspiration pneumonia with aspiration precaution. Approximately 60 minutes was spent in coordinating the discharge on this patient. Patient was seen in collaboration with [facility] Reported Medications Saccharomyces Boulardii* (Florastor*) 250 Mg Cap, 250 MG PO BID, CAP 06/12/17 Tamsulosin Hcl* (Flomax*) 0.4 Mg Cap.er.24h, 0.8 MG PO HS, CAP 06/12/17 Finasteride* (Finasteride*) 5 Mg Tablet, 5 MG PO DAILY, TAB 06/12/17 Docusate Sodium* (Docusate Sodium*) 100 Mg Capsule, 100 MG PO BID, #60 CAP 06/12/17 Cranberry (Cranberry) 400 Mg Capsule, 400 MG PO DAILY, CAP 06/12/17 Atorvastatin Calcium* (Atorvastatin Calcium*) 20 Mg Tablet, 20 MG PO QHS, #30 TAB 06/12/17 Metoprolol Tartrate* (Lopressor*) 50 Mg Tab, 50 MG PO BID, #60 TAB 06/12/17 Digoxin* (Lanoxin*) 0.125 Mg Tablet, 0.125 MG PO DAILY, TAB 06/12/17 Divalproex Sodium* (Divalproex Sodium*) 500 Mg Tablet., 500 MG PO DAILY, #120 TAB 06/12/17 Ascorbic Acid* (Vitamin C*) 500 Mg Capsule.sa, 500 MG PO DAILY, CAP 06/12/17 Risperidone* (Risperidone*) 1 Mg Tablet, 1 MG PO QHS, TAB 06/12/17 Multivitamins* (Theragran*) 1 Tab Tab, 1 TAB PO DAILY, TAB 06/12/17 Gabapentin* (Gabapentin*) 300 Mg Capsule, 300 MG PO TID, #90 CAP 06/12/17 Fluticasone Propionate* (Fluticasone Propionate* Nasal) 50 Mcg/Gasquet - 16 Gm Gasquet.susp, 1 SPRAY NASAL DAILY, #1 BOTTLE TO EACH NOSTRIL 06/12/17 Acetaminophen* (Tylenol*) 325 Mg Tablet, 650 MG PO Q4H Y for MILD PAIN LEVEL 1-3 , TAB 06/12/17 Magnesium Hydroxide* (Milk Of Magnesia*) 400 Mg/5 Ml Oral.susp, 30 ML PO QHS Y for CONSTIPATION, ML 06/12/17 Ipratropium-Albuterol (Ipratropium-Albuterol) 0.5-3 Mg/3 Ml Ampul.neb, 3 ML INHALATION Q2H Y for CONSTIPATION, #30 VIAL 06/12/17 Ferrous Sulfate* (Ferrous Sulfate*) 325 Mg Tabec, 325 MG PO DAILY, TAB 06/12/17 Ergocalciferol (Vitamin D2) (VITAMIN D2) 2,000 Unit Tablet, 2000 UNIT PO WEEKLY , TAB 06/12/17 Follow-up Plan Continue aspiration precaution. Check feeding tube position and residual every 4 hours. Flush with water 150 mL every 6. Hold tube feeding if residual is greater than 150. Head of the bed elevated 30 and up all the time. Nasotracheal suction every 6h O2 2 L via nasal cannula to keep SPO2 greater than 90%. Primary Care Provider Not On Staff Doctor Pending Labs Laboratory Tests Test 09/03/17 23:31 09/04/17 06:20 Vancomycin Level Trough 17.0ug/ml (10.0-20.0) Lab Scanned Report BLOOD [id number] SHAHBAZ MCCURDY NP Sep 04, 2017 12:42
--- NOTE | 2017-09-04 14:38 | CONS ---
Date/Time of Note Date/Time of Note DATE: 09/04/17 TIME: 14:37 Assessment/Plan Assessment/Plan Chief Complaint/Hosp Course SUBJECTIVE: No acute changes. The patient is noncommunicative, looks comfortable. Afebrile. W INDWELLINGS: PEG, PICC line and Lindsey catheter. ANTIMICROBIALS: The patient is on vancomycin and levofloxacin. ALLERGIES: PENICILLIN. PHYSICAL EXAMINATION: GENERAL: This is a chronically ill-appearing, elderly man who is in no distress. HEENT: Head atraumatic, normocephalic. Sclerae anicteric. Buccal mucosa dry. NECK: Supple. CHEST: Rise symmetrical. Breath sounds diminished at the bases. HEART: S1, S2. ABDOMEN: Soft. Bowel tones present. EXTREMITIES: Without cyanosis. ASSESSMENT: 1. Resolving sepsis, status post shock. 2. Bilateral pneumonia. 3. Dysphagia. 4. Encephalopathy. 5. Ureteral stricture, status post Lindsey catheter placed by Dr. Solis. 6. Bilateral hydroureteronephrosis. 7. Acute kidney injury, resolving. PLAN: Patient remains stable. Continue present care, anti-aspiration measures , complete antibiotics for 5 more days Problems: Consultation Date/Type/Reason Admit Date/Time Aug 30, 2017 at 14:08 Initial Consult Date 08/30/17 Type of Consultation: id Referring Provider: JERE HAGAN Exam/Review of Systems Vital Signs Vitals Vital Signs Date Time Temp Pulse Resp B/P Pulse Ox O2 Delivery O2 Flow Rate FiO2 09/04/17 08:00 Nasal Cannula 2.0 09/04/17 07:43 98.1 76 21 108/65 94 09/03/17 20:59 Intake and Output 09/03/17 09/03/17 09/04/17 14:59 22:59 06:59 Intake Total 350 ml 1060 ml Output Total 500 ml Balance 350 ml -500 ml 1060 ml Results Result Diagram: 09/03/17 0559 09/03/17 0559 Results 24 hrs Laboratory Tests Test 09/03/17 23:31 09/04/17 06:20 Vancomycin Level Trough 17.0 Lab Scanned Report BLOOD TRANSFUSION Medications Medications Current Medications IV Flush 10 ml 10 ml PRN PRN IV IV PROTOCOL; Start 08/30/17 at 13:30 Levofloxacin/ Dextrose (Levaquin 500mg/ D5W 100 ml (Pmx)) 100 ml @ 100 mls/hr Q24H IVPB Last administered on 09/04/17 10:17; Admin Dose 100 MLS/HR; Start 08/31/17 at 09:30 Acetaminophen (Tylenol Tab) 650 mg Q4H PRN PO MILD PAIN LEVEL 1-3 Last administered on 08/31/17 22:45; Admin Dose 650 MG; Start 08/30/17 at 14:30 Atorvastatin Calcium (Lipitor) 20 mg QHS PO Last administered on 09/03/17 21: 55; Admin Dose 20 MG; Start 08/30/17 at 21:00 Digoxin (Digoxin) 0.125 mg DAILY PO Last administered on 09/04/17 08:26; Admin Dose 0.125 MG; Start 08/30/17 at 17:00 Saccharomyces Boulardii (Florastor) 250 mg BID PO Last administered on 08:26; Admin Dose 250 MG; Start 08/30/17 at 21:00 Heparin Sodium (Porcine) (Heparin (5000 Units/0.5 ml)) 5,000 unit BID SC Last administered on 09/04/17 08:24; Admin Dose 5,000 UNIT; Start 08/30/17 at 21: 00 Collagenase (Santyl) 1 applic BID TOP Last administered on 09/04/17 10:46; Admin Dose 1 APPLIC; Start 08/31/17 at 09:00 Acetaminophen/ Hydrocodone Bitart ([place] (5/325)) 1 tab Q4H PRN GTB MODERATE PAIN LEVEL 4-6 Last administered on 08/31/17 14:02; Admin Dose 1 TAB; Start 08/31/17 at 11:30 Guaifenesin/ Dextromethorphan (Mucinex Dm) 1 tab BID PO Last administered on 08:25; Admin Dose 1 TAB; Start 08/31/17 at 23:00 Metoclopramide HCl (Reglan) 5 mg TID PEG Last administered on 09/04/17 12:14 ; Admin Dose 5 MG; Start 09/01/17 at 13:00 Polyethylene Glycol (Miralax) 17 gm DAILY GTB Last administered on 09/04/17 08:25; Admin Dose 17 GM; Start 09/01/17 at 10:30 Miscellaneous Information (Pending Santyl Order For Wound Care) This patient bryant... PRN PRN XX WOUND CARE; Start 09/01/17 at 12:00 Ascorbic Acid (Vitamin C) 500 mg DAILY PO Last administered on 09/04/17 08:26 ; Admin Dose 500 MG; Start 09/03/17 at 09:00 Divalproex Sodium (Depakote) 500 mg DAILY PO Last administered on 09/04/17 08 :25; Admin Dose 500 MG; Start 09/03/17 at 09:00 Ferrous Sulfate (Ferrous Sulfate (Ec)) 325 mg DAILY PO Last administered on 08:26; Admin Dose 325 MG; Start 09/03/17 at 09:00 Finasteride (Proscar) 5 mg DAILY PO Last administered on 09/04/17 08:26; Admin Dose 5 MG; Start 09/03/17 at 09:00 Magnesium Hydroxide (Milk Of Mag) 30 ml QHS PRN PO CONSTIPATION; Start at 15:00 Metoprolol Tartrate (Lopressor) 50 mg BID PO Last administered on 09/04/17 08 :27; Admin Dose 50 MG; Start 09/02/17 at 21:00 Multivitamins Therapeutic (Theragran) 1 tab DAILY PO Last administered on 09/04 08:26; Admin Dose 1 TAB; Start 09/03/17 at 09:00 Risperidone (Risperdal) 1 mg QHS PO Last administered on 09/03/17 21:55; Admin Dose 1 MG; Start 09/02/17 at 21:00 Tamsulosin HCl (Flomax) 0.8 mg HS PO Last administered on 09/03/17 21:55; Admin Dose 0.8 MG; Start 09/02/17 at 21:00 Famotidine (Pepcid) 20 mg HS PO Last administered on 09/03/17 21:55; Admin Dose 20 MG; Start 09/02/17 at 21:00 Furosemide 20 mg 20 mg DAILY GTB Last administered on 09/04/17 08:29; Admin Dose 20 MG; Start 09/04/17 at 09:00 Vancomycin HCl/ Dextrose/Water (Vancocin/D5W) 150 ml @ 100 mls/hr Q12H IVPB ; Start 09/05/17 at 00:00 MIREYA HAMPTON BUSINESS ANALYST MANAGER Sep 04, 2017 14:38
[2017-09-04 14:39] VITALS: BP 123/58; RESP 19
[2017-09-05] MEDS ORDERED: VANCOMYCIN 750 MG in DEXTROSE 5% 150 ML IVPB SCH ×2
== END 2017-09-04 17:50 | DRG 871 ==
LOC: E/R 08:51 → ICU 14:08 → MS2 09-02 03:00
PROVIDERS: ADMIT Family Medicine; ATTEND Family Medicine
PROC: 0T9B70Z Drainage of Bladder with Drainage Device, Via Natural or Artificial Opening (ICD-10-PCS; principal; 2017-08-30)
PROC: 02HV33Z Insertion of Infusion Device into Superior Vena Cava, Percutaneous Approach (ICD-10-PCS; 2017-08-30)
PROC: B548ZZA Ultrasonography of Superior Vena Cava, Guidance (ICD-10-PCS; 2017-08-30)
PROC: 30233N1 Transfusion of Nonautologous Red Blood Cells into Peripheral Vein, Percutaneous Approach (ICD-10-PCS; 2017-09-01)
DX: A41.9 Sepsis, unspecified organism (principal); G93.41 Metabolic encephalopathy; N17.0 Acute kidney failure with tubular necrosis; J96.01 Acute respiratory failure with hypoxia; J69.0 Pneumonitis due to inhalation of food and vomit; I50.31 Acute diastolic (congestive) heart failure; S37.39XA Other injury of urethra, initial encounter; J18.1 Lobar pneumonia, unspecified organism; N13.39 Other hydronephrosis; I13.0 Hypertensive heart and chronic kidney disease with heart failure and stage 1 through stage 4 chronic kidney disease, or unspecified chronic kidney disease; G30.9 Alzheimer's disease, unspecified; F02.80 Dementia in other diseases classified elsewhere, unspecified severity, without behavioral disturbance, psychotic disturbance, mood disturbance, and anxiety; G40.909 Epilepsy, unspecified, not intractable, without status epilepticus; I48.0 Paroxysmal atrial fibrillation; J44.9 Chronic obstructive pulmonary disease, unspecified; R13.10 Dysphagia, unspecified; R65.20 Severe sepsis without septic shock; K21.9 Gastro-esophageal reflux disease without esophagitis; N40.0 Benign prostatic hyperplasia without lower urinary tract symptoms; N35.9 Urethral stricture, unspecified; Y84.6 Urinary catheterization as the cause of abnormal reaction of the patient, or of later complication, without mention of misadventure at the time of the procedure; Y73.8 Miscellaneous gastroenterology and urology devices associated with adverse incidents, not elsewhere classified; R31.9 Hematuria, unspecified; N18.9 Chronic kidney disease, unspecified; N25.0 Renal osteodystrophy; E83.89 Other disorders of mineral metabolism; Z93.1 Gastrostomy status; D50.9 Iron deficiency anemia, unspecified
CPT/HCPCS: 36415; 36430; 36569; 36600; 70450; 71010; 74176; 76775; 76937; 80048; 80053; 80162; 80202; 81001; 81003; 82043; 82550; 82553; 82728; 82803; 83540; 83605; 83735; 84100; 84155; 84300; 84484; 85025; 85610; 85730; 86850; 86900; 86901; 86920; 87040; 87045; 87081; 87086; 93005; 93306; 93970; 94640; 94644; 94664; 96365; 96366; 96367; 96375; J1644; J1940; J1956; J2997; J3370; J7030; J7050; P9016

== ENCOUNTER 2017-09-16 05:40 | Inpatient (IN) | END 2017-09-26 08:45 | disposition EXP | DRG 870 ==